=== PATIENT | female | born 1970 | race Caucasian/White ===

== ENCOUNTER 2020-10-09 12:36 | Inpatient (IN) | payer MEDICARE ==
--- NOTE | 2020-10-09 13:22 | ED ---
General Adult HPI - General Chief complaint: Psychiatric Symptoms Stated complaint: mental health Time Seen by Provider: 10/09/20 12:38 Source: patient Mode of arrival: ambulatory Limitations: no limitations - History of Present Illness Initial comments: Dictation was produced using [employer] dictation software. please excuse any grammatical, word or spelling errors. Chief Complaint: 49-year-old female past medical history of psychiatric disease presents from [facility] for mental health evaluation. History of Present Illness: Patient is a 49-year-old female she presents to the emergency department for mental health evaluation. She allegedly has history of bipolar disease and other psychiatric illness. She allegedly has been depressed and contemplating suicide. Patient is a poor historian. She is very slow to answer. She denies any medical complaints. The ROS documented in this emergency department record has been reviewed and confirmed by me. Those systems with pertinent positive or negative responses have been documented in the HPI. All other systems are other negative and/or noncontributory. PHYSICAL EXAM: General Impression: Alert and oriented x3, not in acute distress HEENT: Normocephalic atraumatic, extra-ocular movements intact, pupils equal and reactive to light bilaterally, mucous membranes moist. Cardiovascular: Heart regular rate and rhythm Chest: Able to complete full sentences, no retractions, no tachypnea Abdomen: abdomen soft, non-tender, non-distended, no organomegaly Musculoskeletal: Pulses present and equal in all extremities, no peripheral edema Motor: no focal deficits noted Neurological: CN II-XII grossly intact, no focal motor or sensory deficits noted Skin: Intact with no visualized rashes Psych: Flat affect ED course: 49-year-old female presents from [facility] for mental health evaluation. Vital signs upon arrival are within acceptable limits. Patient has no medical complaints. Physical examination is benign. Patient cleared for EPS evaluation. Labs evaluation obtained per request by psychiatry due to history of lab derangement in the past.. CBC, metabolic panel is unremarkable. His labs are ordered per request by psychiatry. These levels are all normal. Patient medically cleared for EPS evaluation. [facility] - Related Data Home Medications Medication Instructions Recorded Confirmed ARIPiprazole [Abilify] 20 mg PO HS 10/02/13 10/14/13 Venlafaxine HCl ER [Effexor XR] 150 mg PO DAILY 10/02/13 10/14/13 carBAMazepine [carBAMazepine XR] 400 mg PO BID 10/02/13 10/14/13 traZODone HCL [traZODone] 100 mg PO HS 10/02/13 10/14/13 Celecoxib [CeleBREX] 200 mg PO DAILY 10/09/20 10/09/20 DULoxetine HCL [Cymbalta] 60 mg PO DAILY 10/09/20 10/09/20 Escitalopram Oxalate [Lexapro] 10 mg PO DAILY 10/09/20 10/09/20 Fenofibrate,Micronized 134 mg PO DAILY 10/09/20 10/09/20 [Fenofibrate] Isosorbide Mononitrate ER [Imdur] 30 mg PO DAILY 10/09/20 10/09/20 Levothyroxine Sodium [Synthroid] 88 mcg PO DAILY 10/09/20 10/09/20 Paxton-3 Acid Ethyl Esters [Lovaza] 2 gm PO BID 10/09/20 10/09/20 cloZAPine [Clozaril] 100 mg PO BID 10/09/20 10/09/20 metFORMIN HCL [metFORMIN HCL ER] 500 mg PO BID 10/09/20 10/09/20 Previous Rx's Medication Instructions Recorded Aspirin EC [Ecotrin] 81 mg PO DAILY #30 tablet. 10/26/13 Atorvastatin Calcium [Lipitor] 40 mg PO DAILY #30 tab 10/26/13 LORazepam [Ativan] 1 mg PO Q8HR PRN #30 tab 10/26/13 risperiDONE ODT [RisperDAL M-TAB] 0.5 mg PO HS #30 tab 10/26/13 Allergies Allergy/AdvReac Type Severity Reaction Status Date / Time cefuroxime axetil Allergy Unknown Verified 10/09/20 14:23 [From Ceftin] Penicillins Allergy Unknown Verified 10/09/20 14:23 Review of Systems ROS Statement: Those systems with pertinent positive or pertinent negative responses have been documented in the HPI. ROS Other: All systems not noted in ROS Statement are negative. Past Medical History Past Medical History: Hypertension, Thyroid Disorder Additional Past Medical History / Comment(s): hx obtained from . Pt unable to answer History of Any Multi-Drug Resistant Organisms: None Reported Past Surgical History: Appendectomy, Cholecystectomy, Tubal Ligation Additional Past Surgical History / Comment(s): tubal 03/2003 Past Anesthesia/Blood Transfusion Reactions: No Reported Reaction Past Psychological History: Bipolar, Depression Smoking Status: Never smoker Past Alcohol Use History: Heavy Past Drug Use History: None Reported General Exam Limitations: no limitations Course Vital Signs 10/09/20 12:56 Temperature 98.2 F Pulse Rate 92 Respiratory 16 Rate Blood Pressure 146/78 O2 Sat by Pulse 98 Oximetry Medical Decision Making - Lab Data Result diagrams: 10/09/20 15:10 10/09/20 15:10 Lab Results 10/09/20 10/09/20 Range/Units 15:10 15:10 WBC 7.7 (3.8-10.6) k/uL RBC 4.65 (3.80-5.40) m/uL Hgb 13.7 (11.4-16.0) gm/dL Hct 39.9 (34.0-46.0) % MCV 85.9 (80.0-100.0) fL MCH 29.5 (25.0-35.0) pg MCHC 34.3 (31.0-37.0) g/dL RDW 14.1 (11.5-15.5) % Plt Count 263 (150-450) k/uL MPV 7.9 Neutrophils % 75 % Lymphocytes % 17 % Monocytes % 6 % Eosinophils % 0 % Basophils % 0 % Neutrophils # 5.8 (1.3-7.7) k/uL Lymphocytes # 1.3 (1.0-4.8) k/uL Monocytes # 0.5 (0-1.0) k/uL Eosinophils # 0.0 (0-0.7) k/uL Basophils # 0.0 (0-0.2) k/uL Sodium 141 (137-145) mmol/L Potassium 3.9 (3.5-5.1) mmol/L Chloride 108 H (98-107) mmol/L Carbon Dioxide 23 (22-30) mmol/L Anion Gap 10 mmol/L BUN 20 H (7-17) mg/dL Creatinine 1.07 H (0.52-1.04) mg/dL Est GFR (CKD-EPI)AfAm 70 (>60 ml/min/1.73 sqM) Est GFR (CKD-EPI)NonAf 61 (>60 ml/min/1.73 sqM) Glucose 155 H (74-99) mg/dL Calcium 10.1 (8.4-10.2) mg/dL Total Bilirubin 0.6 (0.2-1.3) mg/dL AST 29 (14-36) U/L ALT 32 (4-34) U/L Alkaline Phosphatase 92 (38-126) U/L Total Protein 6.8 (6.3-8.2) g/dL Albumin 4.4 (3.5-5.0) g/dL Disposition Clinical Impression: Suicidal ideation Disposition: ADMITTED IP TO THIS HOSP Condition: Fair Referrals: None,Stated [Primary Care Provider] - 1-2 days
[2020-10-09 15:36] LABS: Basophils % (A) 0 %; Eosinophils % (A) 0 %; HCT 39.9 % (34.0-46.0); HGB 13.7 gm/dL (11.4-16.0); Lymphocytes # (A) 1.3 k/uL (1.0-4.8); Lymphocytes % (A) 17 %; MCH 29.5 pg (25.0-35.0); MCHC 34.3 g/dL (31.0-37.0); MCV 85.9 fL (80.0-100.0); Mean Platelet Volume 7.9; Monocytes # (A) 0.5 k/uL (0-1.0); Monocytes % (A) 6 %; Neutrophils # (A) 5.8 k/uL (1.3-7.7); Neutrophils % (A) 75 %; Platelet Count 263 k/uL (150-450); RBC 4.65 m/uL (3.80-5.40); RDW 14.1 % (11.5-15.5); WBC 7.7 k/uL (3.8-10.6)
[2020-10-09 15:44] LABS: Albumin 4.4 g/dL (3.5-5.0); Calcium 10.1 mg/dL (8.4-10.2); Potassium 3.9 mmol/L (3.5-5.1); Total Bilirubin 0.6 mg/dL (0.2-1.3); Total Protein 6.8 g/dL (6.3-8.2)
[2020-10-09] MEDS ORDERED: MAGNESIUM HYDROXIDE 2,400 MG/10 ML CUP PO PRN (17:02)
[2020-10-09] MEDS ORDERED: MAG HYDROX/AL HYDROX/SIMETH 30 ML CUP PO PRN (17:02)
[2020-10-09] MEDS ORDERED: LORazepam 1 MG TAB PO PRN (17:02)
[2020-10-09] MEDS ORDERED: LORazepam 2 MG/ML INJ IM PRN (17:06)
[2020-10-09] MEDS ORDERED: HALOPERIDOL LACTATE 5 MG/ML 1 ML VIAL IM PRN (17:07)
[2020-10-09] MEDS ORDERED: HALOPERIDOL LACTATE 5 MG/ML 1 ML VIAL IM STA (18:54)
[2020-10-09] MEDS ORDERED: LORazepam 2 MG/ML INJ IM STA (18:55)
[2020-10-09] MEDS ORDERED: diphenhydrAMINE 50 MG/ML 1 ML VIAL IM PRN (19:52)
[2020-10-09] MEDS: traZODone HCL 100 MG TAB PO SCH (20:03)
[2020-10-09] MEDS: cloZAPine 100 MG TAB PO SCH (20:03)
[2020-10-09] MEDS: metFORMIN 500 MG TAB PO SCH (20:03)
[2020-10-09] MEDS: risperiDONE 0.5 MG TAB PO SCH (20:03)
[2020-10-09] MEDS: LORazepam 2 MG/ML INJ IM PRN (20:10)
[2020-10-09] MEDS: HALOPERIDOL LACTATE 5 MG/ML 1 ML VIAL IM PRN (20:10)
[2020-10-09] MEDS: carBAMazepine 400 MG TAB.ER.12H PO SCH (20:25)
[2020-10-09] MEDS ORDERED: NON FORMULARY DRUG (Omega-3 Acid Ethyl Esters [Lovaza] 1 GM Capsule) PO SCH (21:00)
[2020-10-10] MEDS ORDERED: NON FORMULARY DRUG (Omega-3 Acid Ethyl Esters [Lovaza] 1 GM Capsule) PO SCH (00:22)
[2020-10-10] MEDS: LEVOTHYROXINE 88 MCG TAB PO SCH (07:25)
[2020-10-10] MEDS: FENOFIBRATE 160 MG TAB PO SCH (07:54)
[2020-10-10] MEDS: MELOXICAM 7.5 MG TAB PO SCH (07:54)
[2020-10-10] MEDS: ASPIRIN 81 MG PO SCH (07:54)
[2020-10-10] MEDS: ISOSORBIDE MONONITRATE ER 30 MG TAB.ER.24H PO SCH (07:54)
[2020-10-10] MEDS: carBAMazepine 400 MG TAB.ER.12H PO SCH (07:54)
[2020-10-10] MEDS: metFORMIN 500 MG TAB PO SCH ×2 (07:54→21:00)
[2020-10-10] MEDS: cloZAPine 100 MG TAB PO SCH (08:06)
[2020-10-10] MEDS ORDERED: ESCITALOPRAM 10 MG TAB PO SCH (09:00)
[2020-10-10] MEDS ORDERED: VENLAFAXINE HCL ER 150 MG CAP PO SCH (09:00)
[2020-10-10] MEDS ORDERED: DULoxetine HCL 60 MG CAPSULE.DR PO SCH (09:00)
[2020-10-10] MEDS: NON FORMULARY DRUG (Omega-3 Acid Ethyl Esters [Lovaza] 1 GM Capsule) PO SCH ×2 (09:06→21:11)
[2020-10-10 11:15] LABS: Chol/HDL Ratio 4.41; LDL Cholesterol,Calculated 80.8 mg/dL (0.0-131.0); VLDL Calculation 35.2 mg/dL (5.00-40.00)
[2020-10-10 12:09] LABS: Hemoglobin A1C 5.4 % (4.0-6.0)
[2020-10-10] MEDS ORDERED: LORazepam 2 MG/ML INJ IM STA (16:05)
--- NOTE | 2020-10-10 17:29 | HP ---
DATE OF SERVICE: 10/10/2020 HISTORY AND PHYSICAL IDENTIFYING DATA: The patient is a 49-year-old female. She lives with her . She presented to the hospital in [place] for evaluation. CHIEF COMPLAINT: The patient was not able to communicate. According to her , she was depressed and contemplating suicide. HISTORY OF PRESENTING ILLNESS: The patient was not able to provide any information and was essentially mute. Dr. Carl provided most of the information backed up by some information from the medical record. The patient has had long-term psychiatric issues. It is noted she had an admission here in September 2013. At that time she was diagnosed with bipolar disorder and had worsening of bipolar symptoms with disorganized thinking, fluctuating mood, sleep problems, pacing and restless behavior and disorganized thoughts. On discharge she was on Abilify 30 mg a day along with Effexor XR, Tegretol XR and Desyrel. Discharge diagnosis of bipolar disorder, mixed episode with psychosis. According to Dr. Carl, the patient had a progressive decline in her function leading up to her 2013 hospitalization. There was concern about possible schizophrenia. Following her 2013 hospitalization she did quite well and has not had any further hospitalizations until the present. Over the past 6 years the patient had been doing quite well. She seemed to be well stabilized on Clozaril. There was some question about dosing over the last 2 months. The patient had been complaining of tiredness, so the Clozaril dose had been reduced some. Her current Clozaril dose is 100 mg twice a day. Her had been working second shift and there was concern that the patient was becoming increasingly distressed and fearful and most likely not taking her evening dose of Clozaril. She is followed by ACT, though she had not been responding to any of their efforts at contact. The ACT team was suspecting that she likely was not taking Clozaril consistently. She had a history of a fair amount of anxiety and had been on Klonopin for a period of time and was weaned off about [address] Carl noted that in the last few months she has had a gradual decline. Dr. Carl is noting that she seems to be at about the same point where she was 6 years ago that led to her coming into the hospital. The patient lives with her . It is not clear how consistently reliable he is as a support, given his situation with work and other factors. Other medications that the patient is on include Cymbalta 60 mg a day and Lexapro 10 mg a day as other psychoactive medications. She is admitted for further evaluation. SUBSTANCE USE HISTORY: No information available. PAST MEDICAL HISTORY: Hypertension, hyperlipidemia, hypothyroidism, on replacement. FAMILY AND SOCIAL HISTORY: The only information available is as above. MENTAL STATUS EXAMINATION: The patient for the most part was mute during the interview. She stood throughout the interview and rocked from one foot to another. She would respond to questions with just one- or two-word responses that were very soft and almost unintelligible. To one question her response was "half thoughts." To another, "Change ears." To another, "I want to make it hurt." She did not say much more than that. She was noted to be carrying a basket with her personal items though did not make any indication as to why she was carrying the basket. She had a flat affect. She had a distressed look on her face. She seemed to indicate response to internal stimuli. She was extremely slowed in her movements. There was latency in her response. She was not able to respond to any cognitive questions. PHYSICAL EXAMINATION: As per medical consultation. ASSESSMENT: This is a 49-year-old female who is diagnosed with bipolar affective disorder, depressed phase. She has signs of catatonia. She has apparently done the best on Clozaril, though has not been taking her medication consistently and has been declining at least over the last month or more. Psychosocial factors are uncertain. DIAGNOSES: 1. Bipolar affective disorder, depressed mood with psychotic features. 2. Catatonia. 3. Hypertension. 4. Hyperlipidemia. 5. Hypothyroidism. RECOMMENDATIONS: The patient will be admitted for comprehensive medical, psychiatric and psychosocial evaluation. We will engage the patient in individual and group therapeutic activities. I will restart the patient on Clozaril, though will have to do a modified titration, given that she likely has been taking minimal amounts of clozapine at this time. I will initiate an Ativan trial to assess for catatonia. She will receive 2 mg IM and then have a follow-up evaluation in one hour. We will focus on stabilization and discharge planning. We will coordinate with Dr. Carl and [facility] for further treatment and discharge planning. MMBEATAL / FERNANDON: [id number] / [facility]OSPITALShaun
[2020-10-10 18:53] LABS: Glucose,Whole Blood 173 mg/dL (75-99)
[2020-10-10] MEDS: cloZAPine 25 MG TAB PO SCH (21:00)
[2020-10-10] MEDS: risperiDONE 0.5 MG TAB PO SCH (21:01)
[2020-10-10] MEDS: traZODone HCL 100 MG TAB PO SCH (21:01)
[2020-10-10] MEDS: LORazepam 2 MG/ML INJ IM PRN (23:44)
--- NOTE | 2020-10-11 00:43 | P.CONS ---
History of Present Illness - Reason for Consult Consult date: 10/11/20 - History of Present Illness The patient was seen with the mental health unit RN. I was never alone with the patient The patient is a 49-year-old female with a PMH of bipolar disorder, type II DM, hypertension, hyperlipidemia, and hypothyroidism who presented to the emergency room from [facility] for mental health evaluation. The patient was reportedly expressing suicidal ideation and was thereby admitted to the mental health unit where she was seen and evaluated. The patient was slow to respond and was a poor historian. She denied any active complaints. the patient's laboratory evaluation in the emergency room was reviewed and was remarkable for glucose of 155, BUN 20, creatinine 1.07. Review of systems: Pertinent positives and negatives as discussed in HPI, a complete review of systems was performed and all other systems are negative. Physical examination: General: non toxic, no distress, appears at stated age, Morbidly obese Derm: no unusual rashes/lesions no unusual ecchymoses, warm, dry Head: atraumatic, normocephalic, symmetric Eyes: EOMI, no lid lag, anicteric sclera, pupils equal round reactive to light ENT: Nose and ears atraumatic, no thrush, no pharyngeal erythema Neck: No thyromegaly, no cervical lymphadenopathy, trachea midline, supple Mouth: no lip lesion, mucus membranes moist Cardiovascular: S1S2 reg, no murmur, positive posterior tibial pulse bilateral, no edema, capillary refill less than 2 seconds Lungs: CTA bilateral, no rhonchi, no rales , no accessory muscle use Abdominal: soft, nontender to palpation, no guarding, no appreciable organomegaly, normal bowel sounds Ext: no gross muscle atrophy, Neuro: CN II-XI grossly intact, moving all extremities, no focal deficits noted, Psych: Awake, slow to respond, oriented to person and place Assessment/plan Type II DM -A1C 5.4 -Continue home metformin dose Hypertension, hyperlipidemia -Continue with home meds Depression -As per psychiatry Thank you for allowing us to participate in the care of this patient. We will follow peripherally. Do not hesitate to contact us with questions. Someone can be reached from the [facility] hospitalist group at all hours of the day at [phone]. Past Medical History Past Medical History: Hypertension, Thyroid Disorder Additional Past Medical History / Comment(s): hx obtained from . Pt unable to answer History of Any Multi-Drug Resistant Organisms: None Reported Past Surgical History: Appendectomy, Cholecystectomy, Tubal Ligation Additional Past Surgical History / Comment(s): tubal 03/2003 Past Anesthesia/Blood Transfusion Reactions: No Reported Reaction Past Psychological History: Bipolar, Depression Smoking Status: Never smoker Past Alcohol Use History: Heavy Past Drug Use History: None Reported Medications and Allergies Home Medications Medication Instructions Recorded Confirmed Type Atorvastatin Calcium [Lipitor] 40 mg PO DAILY #30 tab 10/26/13 10/10/20 Rx Celecoxib [CeleBREX] 200 mg PO DAILY 10/09/20 10/10/20 History DULoxetine HCL [Cymbalta] 60 mg PO DAILY 10/09/20 10/09/20 History Escitalopram Oxalate [Lexapro] 10 mg PO DAILY 10/09/20 10/10/20 History Fenofibrate,Micronized 134 mg PO DAILY 10/09/20 10/10/20 History [Fenofibrate] Isosorbide Mononitrate ER [Imdur] 30 mg PO DAILY 10/09/20 10/10/20 History Levothyroxine Sodium [Synthroid] 88 mcg PO DAILY 10/09/20 10/10/20 History Maren[place]-3 Acid Ethyl Esters [Lovaza] 2 gm PO BID 10/09/20 10/10/20 History cloZAPine [Clozaril] 100 mg PO BID 10/09/20 10/09/20 History metFORMIN HCL [metFORMIN HCL ER] 1,000 mg PO W/SUPPER 10/09/20 10/10/20 History Cholecalciferol [Vitamin D3 (25 50 mcg PO DAILY 10/10/20 10/10/20 History Mcg = 1000 Iu)] Marenisco-3 Fatty Acids [Marenisco-3] 1,000 mg PO DAILY 10/10/20 10/10/20 History Allergies Allergy/AdvReac Type Severity Reaction Status Date / Time cefuroxime axetil Allergy Rash/Hives Verified 10/10/20 09:20 [From Ceftin] Penicillins Allergy Rash/Hives Verified 10/10/20 09:20 thioridazine AdvReac muscle Verified 10/10/20 09:20 stiffness Physical Exam Vitals: Vital Signs Temp Pulse Resp BP Pulse Ox 10/10/20 21:00 97.9 F 106 H 18 132/85 10/10/20 18:45 114 H 10/10/20 18:41 98.6 F 120 H 16 120/72 94 L 10/10/20 16:35 98.0 F 10/10/20 09:51 97.2 F L 10/10/20 07:54 105 H 133/100 Results CBC & Chem 7: 10/09/20 15:10 10/09/20 15:10 Labs: Abnormal Lab Results - Last 24 Hours (Table) 10/10/20 10/10/20 Range/Units 07:09 18:49 POC Glucose (mg/dL) 173 H (75-99) mg/dL Triglycerides 176.0 H (0.0-149.0) mg/dL HDL Cholesterol 34.0 L (40.0-60.0) mg/dL
[2020-10-11] MEDS: HALOPERIDOL LACTATE 5 MG/ML 1 ML VIAL IM PRN (01:40)
[2020-10-11] MEDS: LEVOTHYROXINE 88 MCG TAB PO SCH (06:29)
[2020-10-11] MEDS ORDERED: LORazepam 2 MG/ML INJ IM STA ×2 (07:49→08:42)
[2020-10-11 08:39] LABS: HCT 39.6 % (34.0-46.0); HGB 13.8 gm/dL (11.4-16.0); MCH 29.8 pg (25.0-35.0); MCHC 34.9 g/dL (31.0-37.0); MCV 85.3 fL (80.0-100.0); Platelet Count 239 k/uL (150-450); RBC 4.64 m/uL (3.80-5.40); WBC 9.1 k/uL (3.8-10.6)
[2020-10-11 08:56] LABS: Calcium 10.1 mg/dL (8.4-10.2); Potassium 3.8 mmol/L (3.5-5.1)
[2020-10-11] MEDS ORDERED: VENLAFAXINE HCL ER 150 MG CAP PO SCH (09:00)
[2020-10-11 10:01] LABS: Amorphous Sediment,Urine Rare /hpf; Appearance,Urine Cloudy (Clear); Bacteria,Urine Many /hpf; Bilirubin,Urine Negative (Negative); Blood,Urine Negative (Negative); Color,Urine Yellow; Glucose,Urine (UA) Negative (Negative); Ketones,Urine Negative (Negative); Leukocyte Esterase,Urine Negative (Negative); Mucus,Urine Few /hpf; Nitrite,Urine Negative (Negative); PH, Urine 5.5 (5.0-8.0); Protein,Urine Negative (Negative); Specific Gravity,Urine 1.012 (1.001-1.035); Squamous Epithelial Cell,Urine 4 /hpf (0-4); Urobilinogen,Urine <2.0 mg/dL (<2.0); WBC,Urine 1 /hpf (0-5)
[2020-10-11] MEDS: FENOFIBRATE 160 MG TAB PO SCH (10:02)
[2020-10-11] MEDS: NON FORMULARY DRUG (Omega-3 Acid Ethyl Esters [Lovaza] 1 GM Capsule) PO SCH ×2 (10:04→21:44)
[2020-10-11] MEDS: metFORMIN 500 MG TAB PO SCH ×2 (10:04→21:09)
[2020-10-11] MEDS: DULoxetine HCL 30 MG CAPSULE.DR PO SCH (10:04)
[2020-10-11] MEDS: ASPIRIN 81 MG PO SCH (10:05)
[2020-10-11] MEDS: cloZAPine 25 MG TAB PO SCH (10:05)
[2020-10-11] MEDS: ISOSORBIDE MONONITRATE ER 30 MG TAB.ER.24H PO SCH (10:05)
[2020-10-11] MEDS: MELOXICAM 7.5 MG TAB PO SCH (10:05)
[2020-10-11] MEDS ORDERED: VENLAFAXINE HCL ER 75 MG CAP PO SCH (10:30)
--- NOTE | 2020-10-11 13:51 | PN ---
PROGRESS NOTE DATE OF SERVICE: 10/11/2020. CHIEF COMPLAINT: The patient was not able to communicate. According to her , she was depressed and contemplating suicide. INTERVAL HISTORY: Patient continues to struggle. She had a quiet day yesterday. Mostly she would walk around the unit to a limited extent. She will solution engineer one part of the hoff or another and just seem to stare off in a distance. Sometimes she will pay a little attention to things going on around her. She verbalizes very little. She might respond with 1 or 2 word answers. Sometimes it is hard to tell what she is trying to say. She does not making any effort to interact with anyone. She will respond mostly with eye contact, but not much else when staff approach her. Patient did not sleep last night. Nursing noted that according to history and previous days in the hospital she has not slept "for days". Today she has been up. Staff noted this morning that she seemed to be having significant problems just with standing. She was settled in a wheelchair. She showed very little extraneous movements and held herself in a rigid posture. She was given Ativan 2 mg IM as a test dose for catatonia. About an hour after that, she still was staying in a wheelchair. She did make some efforts to stand, though was wobbly and remained sitting. When I talked to her she actually responded more than she has since admission. She would answer questions with a few brief phrases. Her thoughts were appropriate, though fairly limited in. She received a second dose of 2 mg of Ativan. Following that, it did seem she was showing at least some response to the Ativan challenge. MENTAL STATUS: Patient did give fair eye contact. After she received the Ativan dose, she was slow in her movements. She responded to a few questions with brief responses that were general, but appropriate. Her affect otherwise was flat. Her mood depressed. She was apparently distressed. She appears to respond to internal stimuli. She indicated no thoughts of harm. She is or oriented only to self. ASSESSMENT: We will continue the current diagnosis and treatment plan. We continue to monitor for possible catatonia and response to Ativan challenge. I will increase the patient's Clozaril. She will get 150 mg tonight and then tomorrow, start 50 mg in the morning and 150 mg at night. She received 50 mg this morning. I would look to continue to titrate up as appropriate. I will discontinue Risperdal, trazodone and Effexor which had been continued from outpatient prescriptions. As noted previously, Dr. Carl indicated that Clozaril has been the primary medication to benefit the patient. I would make an effort to simplify her treatment until we get a clear picture of her response to clozapine as well as whether or not she also is having the complications from catatonia. We will focus on stabilization and discharge planning. MMBEATAL / IJN: [id number] /
[2020-10-11 17:07] LABS: Urine Alcohol Negative (Negative); Urine Barbiturate Negative (Negative); Urine Cocaine Negative (Negative); Urine Methadone Negative (Negative); Urine Opiates Negative (Negative); Urine Phencyclidine Negative (Negative)
--- NOTE | 2020-10-11 17:26 | P.PN ---
Progress Note - Text Progress Note Date: 10/11/20 Received a page to assess patient for concerns of UTI as patient had reportedly urinated on floor and it appeared to be dark in color. Mental health staff requesting labs and urinalysis. CBC completed unremarkable. BMP revealing slightly elevated renal function with BUN 25, creatinine 1.38, and GFR 44. This is believed to be secondary to dehydration. Mental health staff instructed to encourage patient to drink water. Urinalysis was cloudy clarity negative for blood, ketones, proteins, or signs of infection. No further orders to be given at this time. Again encouraged staff to increase patient's fluid intake, otherwise patient was stable at this time.
[2020-10-11] MEDS: cloZAPine 100 MG TAB PO SCH (21:09)
[2020-10-12] MEDS: LEVOTHYROXINE 88 MCG TAB PO SCH (09:02)
[2020-10-12] MEDS: ISOSORBIDE MONONITRATE ER 30 MG TAB.ER.24H PO SCH (09:02)
[2020-10-12] MEDS: FENOFIBRATE 160 MG TAB PO SCH (09:02)
[2020-10-12] MEDS: DULoxetine HCL 30 MG CAPSULE.DR PO SCH (09:03)
[2020-10-12] MEDS: MELOXICAM 7.5 MG TAB PO SCH (09:03)
[2020-10-12] MEDS: ASPIRIN 81 MG PO SCH (09:03)
[2020-10-12] MEDS: cloZAPine 25 MG TAB PO SCH (09:03)
[2020-10-12] MEDS: metFORMIN 500 MG TAB PO SCH ×2 (09:03→21:27)
[2020-10-12] MEDS: NON FORMULARY DRUG (Omega-3 Acid Ethyl Esters [Lovaza] 1 GM Capsule) PO SCH ×2 (09:25→21:27)
--- NOTE | 2020-10-12 11:23 | P.PN ---
Progress Note - Text Progress Note Date: 10/12/20 Interval History: Patient was seen wandering the hallways and was directable and agreeable to speak with sheet writer in her room. Patient is currently ambulating with a wheelchair. The patient remains minimally responsive to questioning, often answering in 1-2 word responses that are low in volume and often mumbled. The patient was administered an Ativan challenge yesterday for management of catatonia, but otherwise has not appeared to display catatonic symptoms today aside from some mutism. She does not answer questions properly at this time. The patient has been noted to sleep for most of yesterday after receiving the Ativan challenge. Prior to receiving that challenge, the patient was noted not to have slept for days. She is currently adherent with her prescribed Clozaril. Mental Status Exam: General Appearance: Patient appears to be stated age is alert, directable, and cooperative. Patient is an obese body habitus. Slightly disheveled. Behavior: Patient is calmly seated without any agitated behavior. Speech: Patient's speech is nonspontaneous, low in volume, minimal, and often dysarthric and difficult to understand. Mood/Affect: Unable to appropriately assess. Suicidality/Homicidality: Unable to appropriately assess. Perceptions: Unable to appropriately assess. Though content/process: Unable to appropriately assess. Memory and concentration: Unable to appropriately assess. Judgment and insight: Poor Assessment Bipolar disorder, type I, depressed episode Plan: -Patient continues to meet criteria for inpatient psychiatric admission for symptom stabilization and safety. The patient has been petitioned and certified. -Medications: Continue Clozaril 50 mg by mouth every morning, 150 mg by mouth daily at bedtime for psychosis/mood stabilization Continue Cymbalta 30 mg by mouth daily for depression -When necessary Ativan and Haldol for agitation/aggression. -SW on board for discharge planning. Encouraged the patient to participate in milieu.
[2020-10-12] MEDS: cloZAPine 100 MG TAB PO SCH (21:27)
[2020-10-13] MEDS: LEVOTHYROXINE 88 MCG TAB PO SCH (06:17)
[2020-10-13] MEDS: ISOSORBIDE MONONITRATE ER 30 MG TAB.ER.24H PO SCH (08:25)
[2020-10-13] MEDS: FENOFIBRATE 160 MG TAB PO SCH (08:25)
[2020-10-13] MEDS: metFORMIN 500 MG TAB PO SCH ×2 (08:25→20:58)
[2020-10-13] MEDS: MELOXICAM 7.5 MG TAB PO SCH (08:25)
[2020-10-13] MEDS: DULoxetine HCL 30 MG CAPSULE.DR PO SCH ×2 (08:25→20:58)
[2020-10-13] MEDS: cloZAPine 25 MG TAB PO SCH (08:25)
[2020-10-13] MEDS: ASPIRIN 81 MG PO SCH (08:25)
[2020-10-13] MEDS: NON FORMULARY DRUG (Omega-3 Acid Ethyl Esters [Lovaza] 1 GM Capsule) PO SCH ×2 (08:33→20:56)
--- NOTE | 2020-10-13 10:07 | P.PN ---
Progress Note - Text Progress Note Date: 10/13/20 Interval History: Patient was seen wandering the hallways and was directable and agreeable to speak with television writer in her room. Patient is currently ambulating with a wheelchair. The patient remains minimally responsive to questioning, often answering in 1-2 word responses that are low in volume and often mumbled. The patient is much more responsive today and answers in 1-2 word responses that are appropriate to the question. The patient does admit to suicidal ideation but she is unable to expand further. She denies any homicidal ideation. She does not report any auditory or visual hallucinations at this time. She denies any issues with sleep or appetite. She has been in adherent with her medications. Mental Status Exam: General Appearance: Patient appears to be stated age is alert, directable, and cooperative. Patient is an obese body habitus. Fair hygiene and grooming. Behavior: Patient is calmly seated without any agitated behavior. Eye contact is appropriate. Patient appears tearful at times. Psychomotor activity is slow. Speech: Patient's speech is nonspontaneous, low in volume, minimal, and often dysarthric and difficult to understand. Mood/Affect: Patient reports her mood is "okay." Affect is blunted. Suicidality/Homicidality: Patient endorses suicidal ideation but no homicidal ideation, intention, and/or plan. Perceptions: The patient denies any auditory or visual hallucinations. Though content/process: Unable to assess thought content beyond a superficial level. Thought process appears to be some thought blocking. Memory and concentration: Unable to appropriately assess. Judgment and insight: Poor Assessment Bipolar disorder, type I, depressed episode Plan: -Patient continues to meet criteria for inpatient psychiatric admission for symptom stabilization and safety. The patient has been petitioned and certified. The patient scheduled for deferral tomorrow. -Medications: Continue Clozaril 50 mg by mouth every morning, 150 mg by mouth daily at bedtime for psychosis/mood stabilization Increase Cymbalta to 30 mg by mouth twice a day for depression -When necessary Ativan and Haldol for agitation/aggression. -SW on board for discharge planning. Encouraged the patient to participate in milieu.
[2020-10-13] MEDS: cloZAPine 100 MG TAB PO SCH (20:58)
[2020-10-14] MEDS: LORazepam 2 MG/ML INJ IM PRN (01:42)
[2020-10-14] MEDS: FENOFIBRATE 160 MG TAB PO SCH (08:09)
[2020-10-14] MEDS: ASPIRIN 81 MG PO SCH (08:09)
[2020-10-14] MEDS: metFORMIN 500 MG TAB PO SCH ×2 (08:09→20:20)
[2020-10-14] MEDS: DULoxetine HCL 30 MG CAPSULE.DR PO SCH ×2 (08:09→20:20)
[2020-10-14] MEDS: cloZAPine 25 MG TAB PO SCH (08:09)
[2020-10-14] MEDS: ISOSORBIDE MONONITRATE ER 30 MG TAB.ER.24H PO SCH (08:09)
[2020-10-14] MEDS: LEVOTHYROXINE 88 MCG TAB PO SCH (08:09)
[2020-10-14] MEDS: MELOXICAM 7.5 MG TAB PO SCH (08:09)
[2020-10-14] MEDS: NON FORMULARY DRUG (Omega-3 Acid Ethyl Esters [Lovaza] 1 GM Capsule) PO SCH ×2 (08:11→20:31)
--- NOTE | 2020-10-14 10:25 | P.PN ---
Progress Note - Text Progress Note Date: 10/14/20 Interval History: Patient was seen resting in bed and was directable and agreeable to speak with caption writer in her room. The patient is more responsive today. She provides more substantial answers today. Patient reports she feels "I'm doing okay." She reports that she has been experiencing suicidal ideation but states that the last time she felt this way was approximately "3 weeks ago." She otherwise does not report and homicidal ideation, intention, and/or plan. She does admit to auditory hallucinations but is unable to share the content or nature of these hallucinations. She does report no visual hallucinations. She overtly denies any paranoia but does admit that she does not feel safe on the unit. She is unable to expand at this time. She has been adherent with her medications and reports no significant side effects at this time. As per staff note, the patient re quired ativan at bedtime for sleep. Mental Status Exam: General Appearance: Patient appears to be stated age is alert, directable, and cooperative. Patient is an obese body habitus. Fair hygiene and grooming. Behavior: Patient is calmly seated without any agitated behavior. Eye contact is appropriate. Psychomotor activity is slow. Speech: Patient's speech is nonspontaneous, low in volume, minimal but more responsive today. Monotone. Less dysarthric. Mood/Affect: Patient reports her mood is "okay." Affect is blunted. Suicidality/Homicidality: Patient endorses no current suicidal or homicidal ideation, intention, and/or plan. Perceptions: Patient admits to auditory hallucinations. Though content/process: Unable to assess thought content beyond a superficial level. Thought process appears to be some thought blocking. Memory and concentration: Unable to appropriately assess. Judgment and insight: Poor Assessment Bipolar disorder, type I, depressed episode Plan: -Patient continues to meet criteria for inpatient psychiatric admission for symptom stabilization and safety. The patient has been petitioned and certified. The patient scheduled for deferral tomorrow. -Medications: We will change clozaril to 25 mg in the morning and 175 mg at bedtime to address daytime sedation and encourage nighttime sleep. Continue Cymbalta to 30 mg by mouth twice a day for depression Will draw BMP this weekend to monitor kidney function. -When necessary Ativan and Haldol for agitation/aggression. -SW on board for discharge planning. Encouraged the patient to participate in milieu.
[2020-10-14] MEDS ORDERED: cloZAPine 25 MG TAB PO SCH (21:00)
[2020-10-14] MEDS ORDERED: cloZAPine 100 MG TAB PO SCH (21:00)
[2020-10-15] MEDS: LEVOTHYROXINE 88 MCG TAB PO SCH (06:53)
[2020-10-15] MEDS: DULoxetine HCL 30 MG CAPSULE.DR PO SCH (07:35)
[2020-10-15] MEDS: metFORMIN 500 MG TAB PO SCH ×2 (07:35→20:05)
[2020-10-15] MEDS: cloZAPine 25 MG TAB PO SCH (07:35)
[2020-10-15] MEDS: FENOFIBRATE 160 MG TAB PO SCH (07:35)
[2020-10-15] MEDS: ISOSORBIDE MONONITRATE ER 30 MG TAB.ER.24H PO SCH (07:35)
[2020-10-15] MEDS: ASPIRIN 81 MG PO SCH (07:35)
[2020-10-15] MEDS: MELOXICAM 7.5 MG TAB PO SCH (07:36)
[2020-10-15] MEDS: NON FORMULARY DRUG (Omega-3 Acid Ethyl Esters [Lovaza] 1 GM Capsule) PO SCH ×2 (07:41→21:47)
--- NOTE | 2020-10-15 12:58 | P.PN ---
Progress Note - Text Progress Note Date: 10/15/20 Subjective: Patient was seen today as a cross coverage for Dr. Lima. The patient was evaluated, chart reviewed, case discussed with the treatment team. Patient reports fair sleep last night, and appetite was reported as " good". Patient has not been going to groups and other unit activities. The patient is compliant with her medications and denies any adverse reactions. patient is on one-to-one observation for safety. Patient presented was very restricted the flat affect, delayed response and answering question with very few words. She reports is still feeling depressed, hopeless and admits for having suicidal ideation. Patient did not share any plan or intent to hurt herself but didn't answer questions about if she has a plan. She admits for having auditory hallucinations but was not able to share contents. Objective: Vitals has been reviewed. Mental status examination; Appearance: The patient appears older than his stated age, fairly groomed, partially disheveled, average body built, no specific features. Gait/posture:patient was on wheelchair for risk of fall, Normal arm swinging: No abnormal movements. Attitude and behavior: Pt is not engaged, not fully cooperative, very poor eye contact. Motor activity: Decreased psychomotor activity Speech: few, delayed Mood:depressed Affect:restricted to flat Thought form: very slow thought process Thought content: Non-delusional, reports suicidal thoughts, not reports of plan or intent. Perception: Pt reports auditory but not report of visual hallucinations Attention: No impairment. Orientation: Patient is not fully oriented to time place person and situation. Insight: Patient has limited insight about her psychiatric disorder. Judgment: Patient has limited judgment about her psychiatric treatment. Assessment: bipolar disorder, type I, depressed episode. Plan: Continue inpatient level of care due to need for further monitoring and stabilization Precautions: Continue 15 minutes check for safety. Consider medical consultation if any acute medical issues arise. Provide the patient individual, group therapy, substance use disorder counseling to give better insight and learn coping skills. Medications: continue Clozaril and increase the dose to 25 mg a.m. and 200 mg at bedtime for mood stabilization and psychotic symptom Continue Cymbalta and increase the dose to 30 mg a.m. and 60 mg at bedtime for depression. Continue as needed medications for psychiatric emergencies including psychosis, agitation and anxiety. Continue non-psychiatric medications for medical conditions as recommended by the medical team. Discharge patient to OUTPATIENT services upon a stabilization
[2020-10-15] MEDS: DULoxetine HCL 60 MG CAPSULE.DR PO SCH (20:05)
[2020-10-15] MEDS: cloZAPine 100 MG TAB PO SCH (20:05)
[2020-10-16] MEDS: LORazepam 2 MG/ML INJ IM PRN (01:56)
[2020-10-16] MEDS: LEVOTHYROXINE 88 MCG TAB PO SCH (09:43)
[2020-10-16] MEDS: metFORMIN 500 MG TAB PO SCH ×2 (09:45→21:52)
[2020-10-16] MEDS: FENOFIBRATE 160 MG TAB PO SCH (09:45)
[2020-10-16] MEDS: ASPIRIN 81 MG PO SCH (09:45)
[2020-10-16] MEDS: DULoxetine HCL 30 MG CAPSULE.DR PO SCH (09:45)
[2020-10-16] MEDS: ISOSORBIDE MONONITRATE ER 30 MG TAB.ER.24H PO SCH (09:45)
[2020-10-16] MEDS: cloZAPine 25 MG TAB PO SCH (09:45)
[2020-10-16] MEDS: NON FORMULARY DRUG (Omega-3 Acid Ethyl Esters [Lovaza] 1 GM Capsule) PO SCH ×2 (09:46→21:56)
[2020-10-16] MEDS: MELOXICAM 7.5 MG TAB PO SCH (09:46)
--- NOTE | 2020-10-16 13:14 | P.PN ---
Progress Note - Text Progress Note Date: 10/16/20 Subjective: Patient was seen today as a cross coverage for Dr. Lima. The patient was evaluated, chart reviewed, case discussed with the treatment team. patient presented less confused and better expressing herself today. She reports still having trouble sleeping and her appetite is a slightly better. Patient was answering question with less delay and more responsive today. Reports auditory hallucinations which sometimes telling her to hurt herself. She has some suicidal ideation but denies any plan or intent to hurt herself or others.Patient has not been going to groups, but she is taking her medications and no side effects reported. Patient is able to walk without need for support and she would try to attend groups later today. Objective: Vitals has been reviewed. Mental status examination; Appearance: The patient appears older than his stated age, fairly groomed, partially disheveled, average body built, no specific features. Gait/posture:patient was able to walk without support, Normal arm swinging: No abnormal movements. Attitude and behavior: Pt is better engaged, not fully cooperative, very poor eye contact. Motor activity: Decreased psychomotor activity Speech: more verbal, still delayed Mood:depressed Affect:restricted to flat Thought form: very slow thought process Thought content: Non-delusional, reports suicidal thoughts, not reports of plan or intent. Perception: Pt reports auditory but not visual hallucinations Attention: impaired Orientation: Patient is not fully oriented to time place person and situation. Insight: Patient has limited insight about her psychiatric disorder. Judgment: Patient has limited judgment about her psychiatric treatment. Assessment: bipolar disorder, type I, depressed episode. Plan: Continue inpatient level of care due to need for further monitoring and stabilization Precautions: discontinue one to one observation, and start 15 minutes check for safety. Consider medical consultation if any acute medical issues arise. Provide the patient individual, group therapy, substance use disorder counseling to give better insight and learn coping skills. Medications: continue Clozaril 200 mg at bedtime for mood stabilization and psychotic symptom Continue Cymbalta 30 mg a.m. and 60 mg at bedtime for depression. Continue as needed medications for psychiatric emergencies including psychosis, agitation and anxiety. Continue non-psychiatric medications for medical conditions as recommended by the medical team. Discharge patient to OUTPATIENT services upon a stabilization
[2020-10-16] MEDS: DULoxetine HCL 60 MG CAPSULE.DR PO SCH (21:52)
[2020-10-16] MEDS: cloZAPine 100 MG TAB PO SCH (21:53)
[2020-10-16] MEDS: LORazepam 1 MG TAB PO PRN (22:23)
[2020-10-17] MEDS: LEVOTHYROXINE 88 MCG TAB PO SCH (06:30)
[2020-10-17] MEDS: FENOFIBRATE 160 MG TAB PO SCH (09:52)
[2020-10-17] MEDS: ISOSORBIDE MONONITRATE ER 30 MG TAB.ER.24H PO SCH (09:52)
[2020-10-17] MEDS: ASPIRIN 81 MG PO SCH (09:52)
[2020-10-17] MEDS: cloZAPine 25 MG TAB PO SCH (09:52)
[2020-10-17] MEDS: metFORMIN 500 MG TAB PO SCH ×2 (09:52→20:15)
[2020-10-17] MEDS: MELOXICAM 7.5 MG TAB PO SCH (09:52)
[2020-10-17] MEDS: NON FORMULARY DRUG (Omega-3 Acid Ethyl Esters [Lovaza] 1 GM Capsule) PO SCH ×2 (09:53→19:36)
[2020-10-17] MEDS: DULoxetine HCL 30 MG CAPSULE.DR PO SCH (09:53)
--- NOTE | 2020-10-17 10:51 | P.PN ---
Progress Note - Text Progress Note Date: 10/17/20 Interval History: Patient was seen resting in bed and was directable and agreeable to speak with service writer in her room. The patient reports that she is feeling "okay." She continues to endorse suicidal ideation but denies any intention or plan. She denies any homicidal ideation, intention, and/or plan. She is much more responsive today to questioning. She does admit to auditory hallucinations but is unable to elaborate on the content. She does express that she has been experiencing occasional visual hallucinations. She states that she has seen a bird fly around her room.She has been in adherent with her medications. The patient does display significant blocking and when asking about side effects of the medication, she is unable to provide any clear or coherent responses. When asked about her last bowel movement, the patient is unable to recall. She reports it may have been 3-4 days ago. Despite this, the patient denies any abdominal pain or other issues. She denies any issues with sleep or appetite. Vital Signs Temp 97.9 F 10/17/20 09:27 Pulse 101 H 10/17/20 07:23 Resp 16 10/17/20 07:23 BP 123/67 10/17/20 07:23 Pulse Ox 95 10/13/20 05:25 Intake & Output 10/16/20 10/17/20 10/17/20 18:59 06:59 18:59 Weight 115 kg Mental Status Exam: General Appearance: Patient appears to be stated age is alert, directable, and cooperative. Patient is an obese body habitus. Fair hygiene and grooming. Dressed in a hospital gown. Behavior: Patient is calmly lying in bed without any agitated behavior. Eye contact is appropriate. Psychomotor activity is slow. Speech: Patient's speech is nonspontaneous, low in volume, and more responsive today. Normal fluency but monotone. Mood/Affect: Patient reports her mood is "okay." Affect is blunted. Suicidality/Homicidality: Patient endorses no current suicidal or homicidal ideation, intention, and/or plan. Perceptions: Patient admits to auditory and visual hallucinations. Though content/process: Unable to assess thought content beyond a superficial level. Thought process appears to be some thought blocking. Memory and concentration: Unable to appropriately assess. Judgment and insight: Poor Assessment Bipolar disorder, type I, depressed episode Plan: -Patient continues to meet criteria for inpatient psychiatric admission for symptom stabilization and safety. The patient has been petitioned and certified. The patient scheduled for deferral tomorrow. -Medications: Continue Clozaril 25 mg in the morning and 200 mg at bedtime for psychosis Continue Cymbalta to 30 mg by mouth in the morning and 60 mg at bedtime for depression. CMP ordered. Will monitor kidney function due to cymbalta. -When necessary Ativan and Haldol for agitation/aggression. -SW on board for discharge planning. Encouraged the patient to participate in milieu.
[2020-10-17] MEDS: DULoxetine HCL 60 MG CAPSULE.DR PO SCH (20:15)
[2020-10-17] MEDS: cloZAPine 100 MG TAB PO SCH (20:15)
[2020-10-18] MEDS: LORazepam 1 MG TAB PO PRN ×2 (02:27→16:12)
[2020-10-18] MEDS: LEVOTHYROXINE 88 MCG TAB PO SCH (06:41)
[2020-10-18 08:20] LABS: Albumin 4.4 g/dL (3.5-5.0); Total Bilirubin 0.8 mg/dL (0.2-1.3); Total Protein 7.1 g/dL (6.3-8.2)
[2020-10-18] MEDS: MELOXICAM 7.5 MG TAB PO SCH (08:32)
[2020-10-18] MEDS: ASPIRIN 81 MG PO SCH (08:32)
[2020-10-18] MEDS: metFORMIN 500 MG TAB PO SCH ×2 (08:33→20:31)
[2020-10-18] MEDS: FENOFIBRATE 160 MG TAB PO SCH (08:33)
[2020-10-18] MEDS: DULoxetine HCL 30 MG CAPSULE.DR PO SCH (08:33)
[2020-10-18] MEDS: ISOSORBIDE MONONITRATE ER 30 MG TAB.ER.24H PO SCH (08:34)
[2020-10-18] MEDS: cloZAPine 25 MG TAB PO SCH (08:34)
[2020-10-18] MEDS: NON FORMULARY DRUG (Omega-3 Acid Ethyl Esters [Lovaza] 1 GM Capsule) PO SCH ×2 (08:39→20:35)
--- NOTE | 2020-10-18 10:27 | P.PN ---
Progress Note - Text Progress Note Date: 10/18/20 Interval History: Patient was seen resting in bed and was directable and agreeable to speak with underwriter solicitation director in her room. The patient reports that she is feeling "better." Patient reports she was able to sleep better last night although she does have some difficulty falling asleep. She is currently wandering the hallways without any assistance and is more responsive to questioning. She reports suicidal ideation today but denies any intention and/or plan. She reports no homicidal ideation, intention, and/or plan. She also reports auditory hallucinations but states that they have decreased in frequency over the past few days. She reports that when she experiences the voices they tell her mean things or command her to do things. She is not reporting any visual hallucinations today. She reports no paranoia or other delusions. She has been adherent with her medications and is currently not reporting any side effects. She states she was able to have a bowel movement last night. She reports no issues with appetite. Vital Signs Temp 98.2 F 10/18/20 06:44 Pulse 90 10/18/20 06:44 Resp 17 10/18/20 06:44 BP 130/75 10/18/20 06:44 Pulse Ox 97 10/18/20 06:44 Mental Status Exam: General Appearance: Patient appears to be stated age is alert, directable, and cooperative. Patient is an obese body habitus. Fair hygiene and grooming. Dressed in a hospital gown. Behavior: Patient is calmly lying in bed without any agitated behavior. Eye contact is appropriate. Psychomotor activity is slow but improving. Speech: Patient's speech is nonspontaneous, low in volume, and more responsive today. Normal fluency and monotone. Mood/Affect: Patient reports her mood is "better." Affect is blunted but improving. Suicidality/Homicidality: Patient endorses suicidal ideation but no intention and/or plan. No homicidal ideation/intention/plan. Perceptions: Patient admits to auditory hallucinations but denies any visual. Though content/process: No delusional thought content is endorsed. Thought process is linear and logical in short conversation. Memory and concentration: Grossly intact for the purposes of this session. Judgment and insight: Mildly improving. Assessment Bipolar disorder, type I, depressed episode Plan: -Patient continues to meet criteria for inpatient psychiatric admission for symptom stabilization and safety. The patient has been petitioned and certified. The patient scheduled for deferral today. -Medications: Continue Clozaril 25 mg in the morning and 200 mg at bedtime for psychosis Continue Cymbalta 30 mg by mouth in the morning and 60 mg at bedtime for depression. -Labs reviewed. BUN and Cr are elevated but trending downward. AST and ALT are slightly elevated. -When necessary Ativan and Haldol for agitation/aggression. -SW on board for discharge planning. Encouraged the patient to participate in milieu.
[2020-10-18] MEDS: DULoxetine HCL 60 MG CAPSULE.DR PO SCH (20:31)
[2020-10-18] MEDS: cloZAPine 100 MG TAB PO SCH (20:31)
[2020-10-18] MEDS: ACETAMINOPHEN TAB 325 MG TAB PO PRN (20:32)
[2020-10-19] MEDS: LEVOTHYROXINE 88 MCG TAB PO SCH (06:18)
[2020-10-19] MEDS: FENOFIBRATE 160 MG TAB PO SCH (08:23)
[2020-10-19] MEDS: MELOXICAM 7.5 MG TAB PO SCH (08:23)
[2020-10-19] MEDS: ASPIRIN 81 MG PO SCH (08:23)
[2020-10-19] MEDS: cloZAPine 25 MG TAB PO SCH (08:24)
[2020-10-19] MEDS: metFORMIN 500 MG TAB PO SCH ×2 (08:25→21:31)
[2020-10-19] MEDS: ISOSORBIDE MONONITRATE ER 30 MG TAB.ER.24H PO SCH (08:25)
[2020-10-19] MEDS: NON FORMULARY DRUG (Omega-3 Acid Ethyl Esters [Lovaza] 1 GM Capsule) PO SCH ×2 (08:25→21:31)
[2020-10-19] MEDS: DULoxetine HCL 30 MG CAPSULE.DR PO SCH (08:25)
[2020-10-19 08:50] LABS: Basophils # (A) 0.1 k/uL (0-0.2); Basophils % (A) 1 %; Eosinophils % (A) 0 %; HCT 40.7 % (34.0-46.0); HGB 13.7 gm/dL (11.4-16.0); Lymphocytes # (A) 1.1 k/uL (1.0-4.8); Lymphocytes % (A) 12 %; MCH 29.2 pg (25.0-35.0); MCHC 33.7 g/dL (31.0-37.0); MCV 86.6 fL (80.0-100.0); Mean Platelet Volume 8.6; Monocytes # (A) 0.7 k/uL (0-1.0); Monocytes % (A) 7 %; Neutrophils # (A) 6.8 k/uL (1.3-7.7); Neutrophils % (A) 78 %; Platelet Count 198 k/uL (150-450); WBC 8.7 k/uL (3.8-10.6)
--- NOTE | 2020-10-19 09:51 | P.PN ---
Progress Note - Text Progress Note Date: 10/19/20 Interval History: Patient was seen sitting upright in her chair. The patient reports she feels "terrible." When asked why she does, the patient states "I'm not sure why." She does express she has been experiencing auditory hallucinations. During the interview the patient did appear to respond to internal stimuli and stared intently at the corner of the room which was empty. When asked what she was looking at, the patient responded, "I thought I saw something, but I guess not." She does appear to be responding to internal stimuli. She is not reporting any suicidal or homicidal ideation, intention, and/or plan. She is not reporting any paranoia or other delusions. The patient has been having difficulty with walking and is disoriented at times. She has been noted to have dark urine. She is back on a 1:1 supervision. The patient has been adherent with her medications and is not reporting any significant side effects at this time. Vital Signs Temp 98.5 F 10/19/20 08:35 Pulse 101 H 10/19/20 08:35 Resp 16 10/19/20 08:35 BP 119/81 10/19/20 08:35 Pulse Ox 94 L 10/19/20 08:35 Mental Status Exam: General Appearance: Patient appears to be stated age is alert, directable, and cooperative. Patient is an obese body habitus. Fair hygiene and grooming. Dressed in a hospital gown. Behavior: Patient is calmly lying in bed without any agitated behavior. Eye contact is poor. Patient appears to respond to internal stimuli. Stares off at an empty corner intently and reacts to what she is seeing. Speech: Patient's speech is nonspontaneous, low in volume, dysarthric. Mood/Affect: Patient reports her mood is "Terrible." Affect is blunted. Suicidality/Homicidality: Patient does not endorse any suicidal or homicidal ideation, intention, and/or plan. Perceptions: Patient admits to auditory hallucinations. She endorses visual hallucinations. Though content/process: No delusional thought content is endorsed. Thought process is linear but illogical in short conversation. Memory and concentration: Grossly intact for the purposes of this session. Judgment and insight: Mildly improving. Assessment Bipolar disorder, type I, depressed episode Plan: -Patient continues to meet criteria for inpatient psychiatric admission for symptom stabilization and safety. The patient has been petitioned and certified. The patient did not defer and is scheduled for court on 10/26/2020. -Medications: Continue Clozaril 25 mg in the morning and 200 mg at bedtime for psychosis. Awaiting clozaril level. Will titrate the medication in response to level. Continue Cymbalta 30 mg by mouth in the morning and 60 mg at bedtime for depression. -Awaiting clozaril level -When necessary Ativan and Haldol for agitation/aggression. -SW on board for discharge planning. Encouraged the patient to participate in milieu.
[2020-10-19 14:28] LABS: Clozapine (Clozaril) 778 ng/mL (200-700); Norclozapine 379 ng/mL (200-700)
[2020-10-19 14:35] LABS: Appearance,Urine Clear (Clear); Bilirubin,Urine Negative (Negative); Blood,Urine Negative (Negative); Color,Urine Light Yellow; Glucose,Urine (UA) Negative (Negative); Ketones,Urine Negative (Negative); Leukocyte Esterase,Urine Negative (Negative); Nitrite,Urine Negative (Negative); Protein,Urine Negative (Negative); Urobilinogen,Urine <2.0 mg/dL (<2.0)
[2020-10-19] MEDS: LORazepam 1 MG TAB PO PRN (17:14)
--- NOTE | 2020-10-19 21:08 | P.PN ---
Progress Note - Text Progress Note Date: 10/19/20 patient does not answer any of ;my questions or provide any history she allowed me to examine her she has left lower extremity swelling of the leg, erythema and warm to the touch, it seem to be also tender to palpation rule out DVT check D -dimer check venous duplex US of bilateral lower extremities patient was examined with Lisette VERA at bedside,.
[2020-10-19] MEDS: cloZAPine 100 MG TAB PO SCH (21:31)
[2020-10-19] MEDS: DULoxetine HCL 60 MG CAPSULE.DR PO SCH (21:31)
--- NOTE | 2020-10-19 22:08 | US ---
EXAMINATION TYPE: US venous doppler duplex LE DATE OF EXAM: 10/19/2020 9:40 PM COMPARISON: NONE CLINICAL HISTORY: dvt?. R/O DVT. Lower extremities appear to be swollen. Unable to get a history from patient. SIDE PERFORMED: Bilateral TECHNIQUE: The lower extremity deep venous system is examined utilizing real time linear array sonog alonzo with graded compression, doppler sonography and color-flow sonography. VESSELS IMAGED: Common Femoral Vein Deep Femoral Vein Greater Saphenous Vein * Femoral Vein Popliteal Vein Small Saphenous Vein * Proximal Calf Veins (* superficial vessels) Right Leg: Internal echoes seen within the popliteal vein. Popliteal vein does not appear to compre ss and shows color defect. Left Leg: Internal echoes seen from CFV down through the prox calf veins. No compressions performed due to internal echoes and limited color flow seen. IMPRESSION: There is evidence of acute bilateral deep vein thrombosis. There is thrombus in the right leg poplite al vein and in the left leg in the femoral vein popliteal vein and calf veins.
[2020-10-20] MEDS: APIXABAN 5 MG TAB PO SCH ×3 (01:36→21:04)
[2020-10-20] MEDS: LEVOTHYROXINE 88 MCG TAB PO SCH ×2 (05:40→09:18)
[2020-10-20] MEDS: ASPIRIN 81 MG PO SCH (08:17)
[2020-10-20] MEDS: MELOXICAM 7.5 MG TAB PO SCH (08:17)
[2020-10-20] MEDS: ISOSORBIDE MONONITRATE ER 30 MG TAB.ER.24H PO SCH (08:18)
[2020-10-20] MEDS: NON FORMULARY DRUG (Omega-3 Acid Ethyl Esters [Lovaza] 1 GM Capsule) PO SCH ×2 (08:18→20:45)
[2020-10-20] MEDS: metFORMIN 500 MG TAB PO SCH ×2 (08:18→21:04)
[2020-10-20] MEDS: DULoxetine HCL 30 MG CAPSULE.DR PO SCH (08:19)
[2020-10-20] MEDS: FENOFIBRATE 160 MG TAB PO SCH (08:19)
[2020-10-20] MEDS: cloZAPine 25 MG TAB PO SCH (09:23)
--- NOTE | 2020-10-20 11:34 | P.PN ---
Progress Note - Text Progress Note Date: 10/20/20 Interval History: Patient was seen sitting upright in her chair. The patient reports she feels "okay." She reports no suicidal ideation, intention, and/or plan. She states she has some homicidal ideation "because the voices tell her so." She denies any intention or plan to act on these voices. She reports she last heard the voices last night. She is denying any current auditory or visual hallucinations. She reports no paranoia or other delusions. She has been adherent with her medications and is not reporting any significant side effects at this time. She reports no issues with sleep or appetite. She denies any chest pain or shortness of breath. The patient does report today she is eager for discharge. Vital Signs Temp 98.0 F 10/20/20 09:26 Pulse 88 10/20/20 08:00 Resp 16 10/20/20 08:00 BP 121/64 10/20/20 08:00 Pulse Ox 94 L 10/19/20 08:35 Mental Status Exam: General Appearance: Patient appears to be stated age is alert, directable, and cooperative. Patient is an obese body habitus. Fair hygiene and grooming. Dressed in a hospital gown. Behavior: Patient is calmly lying in bed without any agitated behavior. Eye contact has improved. Speech: Patient's speech is nonspontaneous, low in volume, clearer today. Mood/Affect: Patient reports her mood is "Okay." Affect is blunted. Suicidality/Homicidality: Patient does not endorse any suicidal ideation, intention, and/or plan. She reports homicidal ideation but no intention, plan or means. Perceptions: Patient admits to auditory hallucinations. She denies visual hallucinations. Though content/process: No delusional thought content is endorsed. Thought process is linear but illogical in short conversation. Memory and concentration: Grossly intact for the purposes of this session. Judgment and insight: Mildly improving. Assessment Bipolar disorder, type I, depressed episode Plan: -Patient continues to meet criteria for inpatient psychiatric admission for symptom stabilization and safety. The patient has been petitioned and c ertified. The patient did not defer and is scheduled for court on 10/26/2020. -Patient likely to discharge tomorrow. -Medications: Continue Clozaril 225 mg at bedtime. Clozaril level supertherapeutic at 778 but norclozapine is WNL at 379. We will move daytime clozaril to bedtime. Continue Cymbalta 30 mg by mouth in the morning and 60 mg at bedtime for depression. -When necessary Ativan and Haldol for agitation/aggression. -SW on board for discharge planning. Encouraged the patient to participate in milieu.
[2020-10-20 12:18] LABS: Clozapine (Clozaril) 667 ng/mL (200-700); Norclozapine 370 ng/mL (200-700)
[2020-10-20 13:36] VITALS: BMI 39.6
[2020-10-20] MEDS: LORazepam 1 MG TAB PO PRN (19:15)
[2020-10-20] MEDS ORDERED: cloZAPine 25 MG TAB PO SCH (21:00)
[2020-10-20] MEDS ORDERED: TOPIRAMATE 25 MG TAB PO SCH (21:00)
[2020-10-20] MEDS: cloZAPine 100 MG TAB PO SCH (21:03)
[2020-10-20] MEDS: DULoxetine HCL 60 MG CAPSULE.DR PO SCH (21:03)
[2020-10-21] MEDS: LEVOTHYROXINE 88 MCG TAB PO SCH (06:41)
[2020-10-21] MEDS: NON FORMULARY DRUG (Omega-3 Acid Ethyl Esters [Lovaza] 1 GM Capsule) PO SCH ×2 (07:49→20:38)
[2020-10-21] MEDS: ASPIRIN 81 MG PO SCH (07:57)
[2020-10-21] MEDS: ISOSORBIDE MONONITRATE ER 30 MG TAB.ER.24H PO SCH ×2 (07:58→08:35)
[2020-10-21] MEDS: APIXABAN 5 MG TAB PO SCH ×2 (07:58→20:38)
[2020-10-21] MEDS: MELOXICAM 7.5 MG TAB PO SCH (07:58)
[2020-10-21] MEDS: metFORMIN 500 MG TAB PO SCH ×2 (07:59→20:37)
[2020-10-21] MEDS: DULoxetine HCL 30 MG CAPSULE.DR PO SCH (07:59)
[2020-10-21] MEDS: FENOFIBRATE 160 MG TAB PO SCH (07:59)
--- NOTE | 2020-10-21 11:23 | P.DS ---
Providers Date of admission: 10/09/20 16:57 Expected date of discharge: 10/21/20 Attending physician: Bhavin Lima MD Consults: 10/09/20 17:02 Consult Physician Routine Consulting Provider: Tea Augustin Consult Reason/Comments: medical management Do you want consulting provider notified?: Yes Primary care physician: Giuseppe Saenz - Discharge Diagnosis(es) (1) Schizoaffective disorder, bipolar type Current Visit: Yes Status: Acute Priority: High Hospital Course: Admission HPI: Initial psychiatric evaluation was completed by Dr. Carranza on 10/10/2020 who wrote: "The patient is a 49-year-old female. She lives with her . She presented to the hospital on [place] for evaluation. Patient was not able to communicate. According to her , she was depressed and contemplating suicide. The patient was not able to provide any information was essentially mute. Dr. Carl provide most information back to buy some information from the medical record. The patient has had long-term psychiatric issues. His she had an admission here in September 2013. At that time, the patient was diagnosed with bipolar disorder and had worsening bipolar symptoms with disorganized thinking, fluctuating mood, sleep problems, pacing, and restless behavior and disorganized thoughts. On discharge, she was on Abilify 30 mg a day, Effexor XR, Tegretol- XR, and Desyrel. Discharge diagnoses of bipolar disorder mixed episode, with psychosis. According to Dr. Carl, the patient had a progressive decline in her function leading up to her 2013 hospitalization. There was concern about possible schizophrenia. Following the 2014 hospitalization she did quite well and has not had any further hospitalizations until the present. Over the past 6 years the patient has been doing quite well. She seemed to be well stabilized on Clozaril. There was some question about dosing over the last 2 months. The patient had been complaining of tiredness the causal dose had been reduced some. Her current causal doses 100 mg twice a day. Her has been working second shift and there was concern that the patient has become increasingly distressed and fearful and most likely not taking her evening dose of Clozaril. She is followed by ACT, though she had not been responding to any other efforts at contact. ACT team was suspecting that she was likely not taking Clozaril consistently. She had a fair amount of anxiety and had been on Klonopin for a period of time and was weaned off about [address] Carl noted that in the last few months she had a gradual decline. Dr. Carl's noting that she seems to be at about the same point where she was 6 years ago that led her to come into the hospital. The patient was at the . It is not clear how consistently reliable he is as a support, given his situation with work and other factors. Other medications that the patient is on Cymbalta and Lexapro as other psychoactive medications. She is admitted for further evaluation. Hospital course: Upon admission to the unit patient was initially presenting as mute, with catatonic symptoms. The patient was given Ativan trial with mild improvement in her responsiveness. The patient was petitioned and certified and a second certificate was completed. In order to avoid polypharmacy, the patient's Lexapro was discontinued. Cymbalta was gradually titrated to address depressive symptoms. There was concern that the patient appeared to be significantly blunted in affect secondary to her Clozaril. Clozaril was therefore moved primarily towards bedtime. Medication was gradually titrated to final dose of 225 mg at bedtime. A Clozaril level was obtained on 10/18/2020 with a clozapine level of 667 at the trough. Norclozapine level was 370. During the hospital stay the patient also had significant medical problems. She was evaluated by the medical team for a history and physical examination. There was concern for DVTs and the patient was managed with eliquis. Furthermore, the patient did display significant swelling in her lower extermities. Despite her medical issues, the patient did display a gradual improvement in regards to her range of affect, her responsiveness, and her ability to follow directions. She became more responsive in questioning. She displayed an ability to take care of her ADLs better including feeding herself. On the day of discharge, the patient does not report any suicidal or homicidal ideation, intention, and/or plan. She reports no auditory hallucinations but does admit that she had auditory hallucinations earlier during the hospitalization. She does report that these auditory hallucinations did encourage her to hurt herself. She occasionally states that she has some visual disturbances. The patient does not report any access to firearms or other weapons. She expresses a desire not to hurt herself. She is reporting no issues with sleep or appetite. She denies any significant side effects of her medications. She reports no chest pain, constipation, or shortness of breath. The patient denies any paranoia or other delusions. The patient has been petitioned and certified. She did meet with an privacy attorney but due to the severity of her thought blocking, the patient was been minimally responsive and unable to sign a deferral. At this time, we are awaiting to hear back from the patient's privacy attorney to see if she is able to sign a deferral or waive and stipulate. Should that not be the case, we are encouraging the patient's and the patient's ACT team to ensure that she is present for court (virtually) on 10/26/2020. Prior to discharge, family meeting will be arranged to make arrangements and ensure safety. Mental status exam: General Appearance: Patient appears to be stated age is alert, scared but cooperative. Patient is in no acute distress and has much improved hygiene and grooming. Behavior: Patient is calmly seated without any agitated behavior. Eye contact is intermittent. Speech: Patient's speech is nonspontaneous, low in volume, and monotone. Mood/Affect: Patient reports their mood is "a little anxious", affect is congruent and nervous. Suicidality/Homicidality: Patient denies having any suicidal or homicidal ideation, intention, means or plan. Perceptions: Patient admits to occasional auditory or visual hallucinations. Though content/process: There is no evidence of any delusional thought content and thought process is linear and goal-directed. Patient is future-oriented. Memory and concentration: AOX3, grossly intact for the purposes of this session. Judgment and insight: Improved with guarded prognosis Impression: Schizoaffective Disorder, bipolar type Plan: -Continue with discharge today as patient has improved and stabilized psychiatrically and is not currently an imminent threat to herself and/or others. Patient will remain at chronically elevated risk for harm to self and/or others due to her severity of mental illness. -Continue medications: Clozaril 225 mg at bedtime for psychosis - Clozapine level 667 (200-700 regular range), Norclozapine 370 Cymbalta 30 mg daily and 60 mg at bedtime for depression Medical medications: Eliquis, metformin, imdur, mobic, synthroid. - Patient is scheduled for court on 10/26/2020. We will need to ensure a means for the patient to attend should she be unable to waive and stipulate. -Patient was counseled on the need for medication compliance and appropriate follow-up at mental health and also primary care for medical issues. Patient verbalized understanding and agreed. -Social work to arrange for and conduct family meeting to ensure safety upon discharge and answer any questions/concerns. Social work also to arrange for patients follow up appointments with [facility] for psychiatric care along with follow up with primary care provider. -Patient counseled on abstaining from recreational drugs and marijuana and alcohol. Was informed/educated on the adverse effects on their physical and mental health. -Patient was instructed to return to the hospital or seek immediate medical care if their psychiatric or medical symptoms do worsen or reoccur. -Psychoeducation and supportive therapy provided to patient. Risks and benefits of pharmacological treatment versus the risks and benefits of nontreatment weight and discussed. Informed consent discussion held. Common side effects of psychotropics discussed such as, but not limited to headache, GI disturbance, sexual dysfunction, movement disorders, sedation, and orthostatic hypotension. Life threatening and blackbox warnings of prescribed medications also discussed. Potential risks of operating a vehicle or heavy machinery discussed with patient at length. Advised on importance of compliance and a reliable and responsible manner. Patient advised to review FDA consumer labeling of all medications prior to taking. Patient verbalized understanding of potential risks, and agrees with current treatment plan. Patient advised to medically contact physician/emergency personnel if any acute changes in condition occur. Vital Signs Temp 98.1 F 10/21/20 08:36 Pulse 90 10/21/20 08:36 Resp 16 10/21/20 08:36 BP 104/55 10/21/20 08:36 Pulse Ox 91 L 10/21/20 06:41 Intake & Output 10/20/20 10/21/20 10/21/20 18:59 06:59 18:59 Weight 115 kg Laboratory Results WBC 8.7 k/uL (3.8-10.6) 10/19/20 08:05 RBC 4.70 m/uL (3.80-5.40) 10/19/20 08:05 Hgb 13.7 gm/dL (11.4-16.0) 10/19/20 08:05 Hct 40.7 % (34.0-46.0) 10/19/20 08:05 MCV 86.6 fL (80.0-100.0) 10/19/20 08:05 MCH 29.2 pg (25.0-35.0) 10/19/20 08:05 MCHC 33.7 g/dL (31.0-37.0) 10/19/20 08:05 RDW 14.0 % (11.5-15.5) 10/19/20 08:05 Plt Count 198 k/uL (150-450) 10/19/20 08:05 MPV 8.6 10/19/20 08:05 Neutrophils % 78 % 10/19/20 08:05 Lymphocytes % 12 % 10/19/20 08:05 Monocytes % 7 % 10/19/20 08:05 Eosinophils % 0 % 10/19/20 08:05 Basophils % 1 % 10/19/20 08:05 Neutrophils # 6.8 k/uL (1.3-7.7) 10/19/20 08:05 Lymphocytes # 1.1 k/uL (1.0-4.8) 10/19/20 08:05 Monocytes # 0.7 k/uL (0-1.0) 10/19/20 08:05 Eosinophils # 0.0 k/uL (0-0.7) 10/19/20 08:05 Basophils # 0.1 k/uL (0-0.2) 10/19/20 08:05 D-Dimer 7.15 mg/L FEU (<0.60) H 10/19/20 22:10 Sodium 140 mmol/L (137-145) 10/18/20 07:18 Potassium 4.0 mmol/L (3.5-5.1) 10/18/20 07:18 Chloride 103 mmol/L (98-107) 10/18/20 07:18 Carbon Dioxide 24 mmol/L (22-30) 10/18/20 07:18 Anion Gap 13 mmol/L 10/18/20 07:18 BUN 23 mg/dL (7-17) H 10/18/20 07:18 Creatinine 1.10 mg/dL (0.52-1.04) H 10/18/20 07:18 Est GFR (CKD-EPI)AfAm 67 (>60 ml/min/1.73 sqM) 10/18/20 07:18 Est GFR (CKD-EPI)NonAf 58 (>60 ml/min/1.73 sqM) 10/18/20 07:18 Glucose 145 mg/dL (74-99) H 10/18/20 07:18 POC Glucose (mg/dL) 173 mg/dL (75-99) H 10/10/20 18:49 POC Glu Guard Entrance Registrar ID Gurdeep Obrien 10/10/20 18:[address] Glu mg/dL 108 10/10/20 07:09 Hemoglobin A1c 5.4 % (4.0-6.0) 10/10/20 07:09 Calcium 10.0 mg/dL (8.4-10.2) 10/18/20 07:18 Magnesium 2.0 mg/dL (1.6-2.3) 10/11/20 08:19 Total Bilirubin 0.8 mg/dL (0.2-1.3) 10/18/20 07:18 AST 51 U/L (14-36) H 10/18/20 07:18 ALT 47 U/L (4-34) H 10/18/20 07:18 Alkaline Phosphatase 66 U/L (38-126) 10/18/20 07:18 Total Protein 7.1 g/dL (6.3-8.2) 10/18/20 07:18 Albumin 4.4 g/dL (3.5-5.0) 10/18/20 07:18 Triglycerides 176.0 mg/dL (0.0-149.0) H 10/10/20 07:09 Cholesterol 150 mg/dL (0-200) 10/10/20 07:09 LDL Cholesterol, Calc 80.8 mg/dL (0.0-131.0) 10/10/20 07:09 VLDL Cholesterol, Calc 35.20 mg/dL (5.00-40.00) 10/10/20 07:09 HDL Cholesterol 34.0 mg/dL (40.0-60.0) L 10/10/20 07:09 Cholesterol/HDL Ratio 4.41 10/10/20 07:09 Urine Color Light Yellow 10/19/20 12:45 Urine Appearance Clear (Clear) 10/19/20 12:45 Urine pH 6.0 (5.0-8.0) 10/19/20 12:45 Ur Specific Pax 1.010 (1.001-1.035) 10/19/20 12:45 Urine Protein Negative (Negative) 10/19/20 12:45 Urine Glucose (UA) Negative (Negative) 10/19/20 12:45 Urine Ketones Negative (Negative) 10/19/20 12:45 Urine Blood Negative (Negative) 10/19/20 12:45 Urine Nitrite Negative (Negative) 10/19/20 12:45 Urine Bilirubin Negative (Negative) 10/19/20 12:45 Urine Urobilinogen <2.0 mg/dL (<2.0) 10/19/20 12:45 Ur Leukocyte Esterase Negative (Negative) 10/19/20 12:45 Urine WBC 1 /hpf (0-5) 10/11/20 09:27 Ur Squamous Epith Cells 4 /hpf (0-4) 10/11/20 09:27 Amorphous Sediment Rare /hpf (None) H 10/11/20 09:27 Urine Bacteria Many /hpf (None) H 10/11/20 09:27 Urine Mucus Few /hpf (None) H 10/11/20 09:27 Urine Opiates Screen Negative ng/mL (Negative) 10/11/20 09:27 Urine Methadone Screen Negative ng/mL (Negative) 10/11/20 09:27 Ur Propoxyphene Screen Negative ng/mL (Negative) 10/11/20 09:27 Urine Barbiturates Negative ng/mL (Negative) 10/11/20 09:27 Ur Phencyclidine Scrn Negative ng/mL (Negative) 10/11/20 09:27 Clozapine 667 ng/mL (200-700) 10/18/20 19:33 Norclozapine 370 ng/mL (200-700) 10/18/20 19:33 Ur Amphetamine Screen Negative ng/mL (Negative) 10/11/20 09:27 U Benzodiazepines Scrn Negative ng/mL (Negative) 10/11/20 09:27 Urine Cocaine Screen Negative ng/mL (Negative) 10/11/20 09:27 U Cannabinoids Screen Negative ng/mL (Negative) 10/11/20 09:27 Urine Alcohol Negative mg/dL (Negative) 10/11/20 09:27 Coronavirus (PCR) Not Detected (Not Detectd) 10/09/20 17:11 Allergies Allergy/AdvReac Type Severity Reaction Status Date / Time cefuroxime axetil Allergy Rash/Hives Verified 10/15/20 20:49 [From Ceftin] Penicillins Allergy Rash/Hives Verified 10/15/20 20:49 thioridazine AdvReac muscle Verified 10/15/20 20:49 stiffness Patient Condition at Discharge: Stable Plan - Discharge Summary Discharge Rx Participant: No New Discharge Prescriptions: New cloZAPine [Clozaril] 25 mg PO HS 30 Days tab DULoxetine HCL [Cymbalta] 60 mg PO HS 30 Days capsule. Apixaban [Eliquis] 10 mg PO BID 30 Days tab metFORMIN HCL [Glucophage] 500 mg PO BID 30 Days tab Isosorbide Mononitrate ER [Imdur] 30 mg PO DAILY 30 Days tab.er.24h Fenofibrate [Lofibra] 160 mg PO DAILY 30 Days tab cloZAPine [Clozaril] 200 mg PO HS 30 Days tab DULoxetine HCL [Cymbalta] 30 mg PO DAILY 30 Days capsule. Meloxicam [Mobic] 7.5 mg PO DAILY 30 Days tab Levothyroxine Sodium [Synthroid] 88 mcg PO 0630 30 Days tab Continue Atorvastatin Calcium [Lipitor] 40 mg PO DAILY #30 tab Raymond-3 Acid Ethyl Esters [Lovaza] 2 gm PO BID Raymond-3 Fatty Acids [Raymond-3] 1,000 mg PO DAILY Cholecalciferol [Vitamin D3 (25 Mcg = 1000 Iu)] 50 mcg PO DAILY Discontinued Celecoxib [CeleBREX] 200 mg PO DAILY DULoxetine HCL [Cymbalta] 60 mg PO DAILY Escitalopram Oxalate [Lexapro] 10 mg PO DAILY Isosorbide Mononitrate ER [Imdur] 30 mg PO DAILY cloZAPine [Clozaril] 100 mg PO BID Fenofibrate,Micronized [Fenofibrate] 134 mg PO DAILY Levothyroxine Sodium [Synthroid] 88 mcg PO DAILY metFORMIN HCL [metFORMIN HCL ER] 1,000 mg PO W/SUPPER Discharge Medication List Atorvastatin Calcium [Lipitor] 40 mg PO DAILY #30 tab 10/26/13 [Rx] Raymond-3 Acid Ethyl Esters [Lovaza] 2 gm PO BID 10/09/20 [History] Cholecalciferol [Vitamin D3 (25 Mcg = 1000 Iu)] 50 mcg PO DAILY 10/10/20 [History] Raymond-3 Fatty Acids [Raymond-3] 1,000 mg PO DAILY 10/10/20 [History] Apixaban [Eliquis] 10 mg PO BID 30 Days tab 10/21/20 [Rx] DULoxetine HCL [Cymbalta] 30 mg PO DAILY 30 Days capsule. 10/21/20 [Rx] DULoxetine HCL [Cymbalta] 60 mg PO HS 30 Days capsule. 10/21/20 [Rx] Fenofibrate [Lofibra] 160 mg PO DAILY 30 Days tab 10/21/20 [Rx] Isosorbide Mononitrate ER [Imdur] 30 mg PO DAILY 30 Days tab.er.24h 10/21/20 [Rx] Levothyroxine Sodium [Synthroid] 88 mcg PO 30 30 Days tab 10/21/20 [Rx] Meloxicam [Mobic] 7.5 mg PO DAILY 30 Days tab 10/21/20 [Rx] cloZAPine [Clozaril] 25 mg PO HS 30 Days tab 10/21/20 [Rx] cloZAPine [Clozaril] 200 mg PO HS 30 Days tab 10/21/20 [Rx] metFORMIN HCL [Glucophage] 500 mg PO BID 30 Days tab 10/21/20 [Rx] Follow up Appointment(s)/Referral(s): Ambrosio Garcia MD [STAFF PHYSICIAN] - 4 Weeks (unprovoked Deep Vein thrombosis) Giuseppe Saenz MD [Primary Care Provider] - 1 Week () Patient Instructions/Handouts: Deep Vein Thrombosis (DC) Activity/Diet/Wound Care/Special Instructions: Activity and diet as tolerated. Avoid the use of street drugs and alcohol. Take all medications as prescribed. When you are in need of refills on your me dications please contact your medical provider and/or outpatient psychiatrist to have this done. Please go to scheduled outpatient appointment for aftercare treatment. If symptoms return or become worse, call the crisis line at and/or go to the nearest emergency room for evaluation. Eliquis 10mg twice a day X7 days (10/20-10/27/20) then decrease Eliquis to 5 mg twice a day for 3 months (01/25/2021) for blood clots in bilateral legs. Please consult with your physician before discontinuing this medication. Discharge Disposition: HOME WITH HOME HEALTH SERVICES
--- NOTE | 2020-10-21 17:00 | P.PN ---
Subjective Progress Note Date: 10/21/20 Principal diagnosis: lower extremity swelling Patient is a 49 yo CF currently on the mental health unit who has been found to have bilateral lower extremity DVT. Patient seen and examined at bedside. She appears anxious and that she is responding to internal stimuli. She denies chest pain, calf pain, and has mild shortness of breath. She has been up and walking short distances per nursing She stops answering questions. Per nursing she has not been noted to have blood in urine/stool. Has been eating and drinking okay. GEN: ill appearing, non toxic CV: S1S2 reg, + PT pulse bilateral Lungs: Faint wheeze left base, no accessory muscle use, no conversational dyspnea EXT: bilateral lower extremity non pitting edema worse on the left than right, no erythema B/l LE DVT - eliquis - no compression, continue with elevation - nursing to monitor for signs/symptoms of bleeding - follow-up with PCP - CBC in AM Objective - Vital Signs Vital signs: Vital Signs Temp 98.1 F 10/21/20 08:36 Pulse 90 10/21/20 08:36 Resp 16 10/21/20 08:36 BP 104/55 10/21/20 08:36 Pulse Ox 91 L 10/21/20 06:41 Intake & Output 10/20/20 10/21/20 10/21/20 18:59 06:59 18:59 Weight 115 kg - Labs CBC & Chem 7: 10/19/20 08:05 10/18/20 07:18
[2020-10-21] MEDS: DULoxetine HCL 60 MG CAPSULE.DR PO SCH (20:37)
[2020-10-21] MEDS: cloZAPine 100 MG TAB PO SCH (20:37)
[2020-10-21] MEDS: cloZAPine 25 MG TAB PO SCH (20:37)
[2020-10-22 08:13] LABS: HCT 36.4 % (34.0-46.0); HGB 12.6 gm/dL (11.4-16.0); MCH 29.6 pg (25.0-35.0); MCHC 34.6 g/dL (31.0-37.0); MCV 85.6 fL (80.0-100.0); Platelet Count 256 k/uL (150-450); RBC 4.25 m/uL (3.80-5.40); RDW 14.4 % (11.5-15.5); WBC 6.9 k/uL (3.8-10.6)
[2020-10-22] MEDS: LEVOTHYROXINE 88 MCG TAB PO SCH (08:37)
[2020-10-22] MEDS: MELOXICAM 7.5 MG TAB PO SCH (08:37)
[2020-10-22] MEDS: DULoxetine HCL 30 MG CAPSULE.DR PO SCH (08:38)
[2020-10-22] MEDS: ASPIRIN 81 MG PO SCH (08:39)
[2020-10-22] MEDS: APIXABAN 5 MG TAB PO SCH ×2 (08:43→21:23)
[2020-10-22] MEDS: metFORMIN 500 MG TAB PO SCH ×2 (08:43→21:24)
[2020-10-22] MEDS: NON FORMULARY DRUG (Omega-3 Acid Ethyl Esters [Lovaza] 1 GM Capsule) PO SCH ×2 (08:44→21:26)
[2020-10-22] MEDS: ISOSORBIDE MONONITRATE ER 30 MG TAB.ER.24H PO SCH (08:44)
[2020-10-22] MEDS: FENOFIBRATE 160 MG TAB PO SCH (08:44)
--- NOTE | 2020-10-22 12:36 | P.PN ---
Progress Note - Text Progress Note Date: 10/22/20 Interval History: Patient was seen in her room sitting in the chair and was directable and agreeable to speak with lead technical writer. She is a hardly responsive to any questioning. He just stares in the space. She speaks in a very low monotonous voice and mumbles. She just stays in the room and does not interact with other peers.. At this time patient denies any suicidal or homical ideations, intent or plan. Patient denies any auditory, visual hallucinations and denies any paranoia or delusions. Patient denies any side effects from the medications and has been reportedly compliant with meds. Mental Status Exam: General Appearance: Patient appears to be stated age is alert. Behavior: Patient is calmly seated without any agitated behavior. Speech: Patient's speech is hardly productive Mood/Affect: Mood is blank and affect is constricted Suicidality/Homicidality: Patient denies having any suicidal or homicidal ideation intent or plan. Perceptions: Patient denies any visual hallucinations and denies any auditory hallucinations Though content/process: There is no evidence of any delusional thought content and thought process . Memory and concentration: Not testable Judgment and insight: not Improving Assessment This patient continues to maintain status quo. She does not interact with other peers. She basically stays in the room and wants to be taken care of. Plan: -Patient continues to meet criteria for inpatient psychiatric admission for symptom stabilization and safety. -Medications: -When necessary Ativan and Haldol for agitation/aggression. -SW on board for discharge planning. Encouraged the patient to participate in milieu.
[2020-10-22] MEDS: cloZAPine 100 MG TAB PO SCH (21:23)
[2020-10-22] MEDS: DULoxetine HCL 60 MG CAPSULE.DR PO SCH (21:24)
[2020-10-22] MEDS: cloZAPine 25 MG TAB PO SCH (21:24)
[2020-10-23] MEDS: FENOFIBRATE 160 MG TAB PO SCH (08:08)
[2020-10-23] MEDS: APIXABAN 5 MG TAB PO SCH ×2 (08:08→21:51)
[2020-10-23] MEDS: ASPIRIN 81 MG PO SCH (08:08)
[2020-10-23] MEDS: MELOXICAM 7.5 MG TAB PO SCH (08:08)
[2020-10-23] MEDS: DULoxetine HCL 30 MG CAPSULE.DR PO SCH (08:08)
[2020-10-23] MEDS: metFORMIN 500 MG TAB PO SCH ×2 (08:09→21:51)
[2020-10-23] MEDS: LEVOTHYROXINE 88 MCG TAB PO SCH (08:09)
[2020-10-23] MEDS: ISOSORBIDE MONONITRATE ER 30 MG TAB.ER.24H PO SCH (08:09)
[2020-10-23] MEDS: NON FORMULARY DRUG (Omega-3 Acid Ethyl Esters [Lovaza] 1 GM Capsule) PO SCH ×2 (08:10→21:55)
--- NOTE | 2020-10-23 12:48 | P.PN ---
Progress Note - Text Progress Note Date: 10/23/20 Interval History: Patient was seen in her room and was directable and agreeable to speak with securities underwriter. This patient is still preoccupied and withdrawn and is isolative. At this time patient denies any suicidal or homical ideations, intent or plan. Patient denies any auditory, visual hallucinations and denies any paranoia or delusions. Patient denies any side effects from the medications and has been compliant with meds. Mental Status Exam: General Appearance: Patient appears to be stated and is in the wheelchair. Behavior: Patient is calmly seated without any agitated behavior. Speech: Patient's speech is non-fluent and nonpressured. Mood/Affect: Mood is improving mildly, affect is congruent and constricted. Suicidality/Homicidality: Patient denies having any suicidal or homicidal ideation intent or plan. Perceptions: Patient denies any visual hallucinations and denies any auditory hallucinations Though content/process: There is no evidence of any delusional thought content . Memory and concentration: AOX3, grossly intact for the purposes of this session Judgment and insight: Improving mildly Assessment Patient is isolative withdrawn, preoccupied and stays to herself. Plan: -Patient continues to meet criteria for inpatient psychiatric admission for symptom stabilization and safety. -Medications: Continue medication as before -When necessary Ativan and Haldol for agitation/aggression. -SW on board for discharge planning. Encouraged the patient to participate in milieu.
[2020-10-23] MEDS: LORazepam 1 MG TAB PO PRN (17:09)
[2020-10-23] MEDS: cloZAPine 25 MG TAB PO SCH (21:51)
[2020-10-23] MEDS: DULoxetine HCL 60 MG CAPSULE.DR PO SCH (21:51)
[2020-10-23] MEDS: cloZAPine 100 MG TAB PO SCH (21:51)
[2020-10-24] MEDS: LEVOTHYROXINE 88 MCG TAB PO SCH (06:31)
[2020-10-24] MEDS: metFORMIN 500 MG TAB PO SCH ×2 (09:00→20:53)
[2020-10-24] MEDS: ISOSORBIDE MONONITRATE ER 30 MG TAB.ER.24H PO SCH (09:00)
[2020-10-24] MEDS: MELOXICAM 7.5 MG TAB PO SCH (09:00)
[2020-10-24] MEDS: DULoxetine HCL 30 MG CAPSULE.DR PO SCH (09:00)
[2020-10-24] MEDS: APIXABAN 5 MG TAB PO SCH ×2 (09:00→20:52)
[2020-10-24] MEDS: FENOFIBRATE 160 MG TAB PO SCH (09:01)
[2020-10-24] MEDS: ASPIRIN 81 MG PO SCH (09:01)
[2020-10-24] MEDS: NON FORMULARY DRUG (Omega-3 Acid Ethyl Esters [Lovaza] 1 GM Capsule) PO SCH ×2 (09:01→21:06)
--- NOTE | 2020-10-24 11:27 | P.PN ---
Progress Note - Text Progress Note Date: 10/24/20 Interval History: Patient was seen sitting upright in her wheelchair attending group. The patient reports she feels "fine." Patient does however continues to endorse significant auditory and visual hallucinations. She reports she hears voices that tell her to do things and even hurt herself but is unable to state when she last heard these voices. She does report visual disturbances. She stares intently at this provider and states, "You're fading away" and laughs stating "oh you didn't" after touching his wrist. She otherwise denies any suicidal or homicidal ideation, intention, and/or plan. She reports no side effects of her medications at this time. She reports no issues with sleep or appetite and has been attending groups. Vital Signs Temp 97.4 F L 10/23/20 08:29 Pulse 93 10/24/20 08:00 Resp 16 10/23/20 08:29 BP 116/59 10/24/20 08:00 Pulse Ox 95 10/22/20 08:35 Intake & Output 10/23/20 10/24/20 10/24/20 18:59 06:59 18:59 Weight 112.9 kg Mental Status Exam: General Appearance: Patient appears to be stated age is alert, directable, and cooperative. Patient is an obese body habitus. Fair hygiene and grooming. Dressed in a hospital gown. Behavior: Patient is calmly lying in bed without any agitated behavior. Eye contact is fair. Ambulates with a wheelchair. Speech: Patient's speech is nonspontaneous, low in volume, monotone. Mood/Affect: Patient reports her mood is "fine." Affect is blunted. Suicidality/Homicidality: Patient reports no SI or HI. Perceptions: Patient admits to auditory and visual hallucinations. Though content/process: No delusional thought content is endorsed. Thought process is linear but illogical in short conversation. Memory and concentration: Grossly intact for the purposes of this session. Judgment and insight: Mildly improving. Assessment Bipolar disorder, type I, depressed episode Plan: -Patient continues to meet criteria for inpatient psychiatric admission for symptom stabilization and safety. The patient has been petitioned and certified. The patient did not defer and is scheduled for court on 10/26/2020. -Patient likely to discharge tomorrow. -Medications: Increase Clozaril to 275 mg at bedtime for psychosis. Start Topamax 25 mg at bedtime to augment antipsychotic. Continue Cymbalta 30 mg by mouth in the morning and 60 mg at bedtime for depression. -When necessary Ativan and Haldol for agitation/aggression. -SW on board for discharge planning. Encouraged the patient to participate in milieu.
[2020-10-24] MEDS: cloZAPine 100 MG TAB PO SCH (20:52)
[2020-10-24] MEDS: cloZAPine 25 MG TAB PO SCH (20:53)
[2020-10-24] MEDS: DULoxetine HCL 60 MG CAPSULE.DR PO SCH (20:53)
[2020-10-24] MEDS ORDERED: TOPIRAMATE 25 MG TAB PO SCH (21:00)
[2020-10-24] MEDS: LORazepam 1 MG TAB PO PRN (22:38)
[2020-10-25] MEDS: ACETAMINOPHEN TAB 325 MG TAB PO PRN (03:08)
[2020-10-25] MEDS: ISOSORBIDE MONONITRATE ER 30 MG TAB.ER.24H PO SCH ×2 (08:35→10:04)
[2020-10-25] MEDS: FENOFIBRATE 160 MG TAB PO SCH (08:35)
[2020-10-25] MEDS: DULoxetine HCL 30 MG CAPSULE.DR PO SCH (08:35)
[2020-10-25] MEDS: ASPIRIN 81 MG PO SCH (08:35)
[2020-10-25] MEDS: APIXABAN 5 MG TAB PO SCH ×2 (08:36→21:49)
[2020-10-25] MEDS: MELOXICAM 7.5 MG TAB PO SCH (08:36)
[2020-10-25] MEDS: LEVOTHYROXINE 88 MCG TAB PO SCH (08:36)
[2020-10-25] MEDS: metFORMIN 500 MG TAB PO SCH ×2 (08:36→21:49)
[2020-10-25] MEDS: NON FORMULARY DRUG (Omega-3 Acid Ethyl Esters [Lovaza] 1 GM Capsule) PO SCH ×2 (08:44→21:55)
--- NOTE | 2020-10-25 09:52 | US ---
EXAMINATION TYPE: US venous doppler duplex LE BI DATE OF EXAM: 10/25/2020 12:44 AM COMPARISON: 10/19/2020 CLINICAL HISTORY: Re-evaluate LE TRUONG DVTs. Mental health patient with known DVT bilaterally, reassess today SIDE PERFORMED: Bilateral TECHNIQUE: The lower extremity deep venous system is examined utilizing real time linear array sonog alonzo with graded compression, doppler sonography and color-flow sonography. VESSELS IMAGED: Common Femoral Vein Deep Femoral Vein Greater Saphenous Vein * Femoral Vein Popliteal Vein Small Saphenous Vein * Proximal Calf Veins (* superficial vessels) Right Leg: popiteal vein is still non compressible with internal echoes and minimal flow remain from previous study Left Leg: throughout the left leg non compressible vein with internal echoes and minimal flow remain from previous study IMPRESSION: 1. Bilateral lower extremity acute DVT demonstrates no interval change.
--- NOTE | 2020-10-25 10:18 | P.PN ---
Progress Note - Text Progress Note Date: 10/25/20 Interval History: Patient was seen sitting upright in her room by herself on her chair1. The patient continues to endorse auditory and visual hallucinations. She does report that she hears voices but is unable to determine the content of what is said to her. She continues to endorse significant visual hallucinations and visual disturbances. Today, the patient points at a laundry bag in her room and asked this provider to looking side of it to make sure that there are no animals inside. Furthermore, the patient continues to state that this provider looks like he is "fading away."The patient does express some paranoia when inquired, stating that she is uncertain if people are after her but feels like people are. She continues to also be evaluated for DVT. Patient otherwise reports no issues with appetite or sleep. She is denying any chest pain, shortness of breath, or other side effects of her medications and has been adherent. The patient does participate in milieu activities.She is currently not reporting any suicidal or homicidal ideation, intention, and/or plan. Mental Status Exam: General Appearance: Patient appears to be stated age is alert, directable, and cooperative. Patient is an obese body habitus. Fair hygiene and grooming. Dressed in a hospital gown. Behavior: Patient is calmly sitting upright in her chair without any agitated behavior. Eye contact is fair. Speech: Patient's speech is nonspontaneous, low in volume, monotone. Mood/Affect: Patient reports her mood is "okay, I guess" Affect is blunted and nervous. Suicidality/Homicidality: Patient reports no SI or HI. Perceptions: Patient admits to auditory and visual hallucinations. Though content/process: No delusional thought content is endorsed. Thought process is linear but illogical in short conversation. Memory and concentration: Grossly intact for the purposes of this session. Judgment and insight: Poor. Vital Signs Temp 98.0 F 10/25/20 10:04 Pulse 89 10/25/20 10:04 Resp 16 10/25/20 10:04 BP 103/54 10/25/20 10:04 Pulse Ox 94 L 10/25/20 10:04 Assessment Bipolar disorder, type I, depressed episode Plan: -Patient continues to meet criteria for inpatient psychiatric admission for symptom stabilization and safety. The patient has been petitioned and certified. The patient did not defer and is scheduled for court on 10/26/2020. -Medications: Continue Clozaril 275 mg at bedtime for psychosis. Will obtain clozaril level today. Increase Topamax to 50 mg at bedtime to augment antipsychotic. Continue Cymbalta 30 mg by mouth in the morning and 60 mg at bedtime for depression. -When necessary Ativan and Haldol for agitation/aggression. -SW on board for discharge planning. Encouraged the patient to participate in milieu.
[2020-10-25] MEDS: TOPIRAMATE 25 MG TAB PO SCH (21:49)
[2020-10-25] MEDS: cloZAPine 25 MG TAB PO SCH (21:49)
[2020-10-25] MEDS: cloZAPine 100 MG TAB PO SCH (21:49)
[2020-10-25] MEDS: DULoxetine HCL 60 MG CAPSULE.DR PO SCH (21:49)
[2020-10-26 07:15] LABS: Basophils % (A) 0 %; Eosinophils % (A) 0 %; HCT 39.8 % (34.0-46.0); HGB 12.8 gm/dL (11.4-16.0); Lymphocytes # (A) 1.3 k/uL (1.0-4.8); Lymphocytes % (A) 20 %; MCH 28.3 pg (25.0-35.0); MCHC 32.1 g/dL (31.0-37.0); MCV 88.1 fL (80.0-100.0); Mean Platelet Volume 7.5; Monocytes # (A) 0.4 k/uL (0-1.0); Monocytes % (A) 6 %; Neutrophils # (A) 4.8 k/uL (1.3-7.7); Neutrophils % (A) 72 %; Platelet Count 301 k/uL (150-450); RBC 4.52 m/uL (3.80-5.40); RDW 15.1 % (11.5-15.5); WBC 6.7 k/uL (3.8-10.6)
[2020-10-26] MEDS: metFORMIN 500 MG TAB PO SCH ×2 (09:21→21:34)
[2020-10-26] MEDS: LEVOTHYROXINE 88 MCG TAB PO SCH (09:21)
[2020-10-26] MEDS: DULoxetine HCL 30 MG CAPSULE.DR PO SCH (09:21)
[2020-10-26] MEDS: ASPIRIN 81 MG PO SCH (09:21)
[2020-10-26] MEDS: FENOFIBRATE 160 MG TAB PO SCH (09:22)
[2020-10-26] MEDS: APIXABAN 5 MG TAB PO SCH ×2 (09:22→21:33)
[2020-10-26] MEDS: MELOXICAM 7.5 MG TAB PO SCH (09:22)
[2020-10-26] MEDS: NON FORMULARY DRUG (Omega-3 Acid Ethyl Esters [Lovaza] 1 GM Capsule) PO SCH ×2 (09:23→21:40)
[2020-10-26] MEDS: ISOSORBIDE MONONITRATE ER 30 MG TAB.ER.24H PO SCH (09:41)
--- NOTE | 2020-10-26 10:31 | P.PN ---
Progress Note - Text Progress Note Date: 10/26/20 Interval History: Patient was seen sitting upright in her room by herself on her wheelchair. The patient attended court and is now court-ordered for treatment. Currently the patient continues to report visual hallucinations. She expresses that she sees her brother in her room despite no one else being present. She expresses continuing concern that this provider appears to be "fading" but this time specifically states it is the hands that are "fading away." When inquiring about suicidal ideation, the patient replies, "I guess I must have" and is unable to elaborate further. She denies any homicidal ideation, intention, and/or plan. The patient denies any issues with sleep. She reports no issues with appetite. She has been adherent with her medications and is not reporting any side effects at this time. Clozaril level is pending. Mental Status Exam: General Appearance: Patient appears to be stated age is alert, directable, and cooperative. Patient is an obese body habitus. Fair hygiene and grooming. Dressed in a hospital gown. Behavior: Patient is calmly sitting upright in her chair without any agitated behavior. Eye contact is fair. Speech: Patient's speech is nonspontaneous, low in volume, monotone. Mood/Affect: Patient reports her mood is "ok." Affect is blunted and nervous. Suicidality/Homicidality: Patient reports no SI or HI. Perceptions: Patient admits to visual hallucinations. She reports noauditory hallucinations today. Though content/process: No delusional thought content is endorsed. Thought process is linear but illogical in short conversation. Memory and concentration: Grossly intact for the purposes of this session. Judgment and insight: Poor. Vital Signs Temp 98.5 F 10/26/20 09:41 Pulse 92 10/26/20 09:41 Resp 16 10/26/20 09:41 BP 117/62 10/26/20 09:41 Pulse Ox 94 L 10/25/20 10:04 Assessment Bipolar disorder, type I, depressed episode Plan: -Patient continues to meet criteria for inpatient psychiatric admission for symptom stabilization and safety. The patient has been petitioned and certified. The patient is court-ordered for treatment. -Medications: Continue Clozaril 275 mg at bedtime for psychosis. Awaiting clozaril level. Increase Topamax to 25 mg qAM and 50 mg at bedtime to augment antipsychotic. Continue Cymbalta 30 mg by mouth in the morning and 60 mg at bedtime for depression. -When necessary Ativan and Haldol for agitation/aggression. -SW on board for discharge planning. Encouraged the patient to participate in milieu.
[2020-10-26] MEDS: LORazepam 1 MG TAB PO PRN (17:35)
[2020-10-26] MEDS: cloZAPine 25 MG TAB PO SCH (21:33)
[2020-10-26] MEDS: cloZAPine 100 MG TAB PO SCH (21:33)
[2020-10-26] MEDS: DULoxetine HCL 60 MG CAPSULE.DR PO SCH (21:34)
[2020-10-26] MEDS: TOPIRAMATE 25 MG TAB PO SCH (21:34)
[2020-10-27] MEDS: LEVOTHYROXINE 88 MCG TAB PO SCH (06:37)
[2020-10-27 07:11] VITALS: RESP 18; TEMP 97.1
[2020-10-27] MEDS ORDERED: TOPIRAMATE 25 MG TAB PO SCH (09:00)
[2020-10-27] MEDS: metFORMIN 500 MG TAB PO SCH ×2 (09:07→20:22)
[2020-10-27] MEDS: ASPIRIN 81 MG PO SCH (09:07)
[2020-10-27] MEDS: DULoxetine HCL 30 MG CAPSULE.DR PO SCH ×2 (09:07→09:30)
[2020-10-27] MEDS: MELOXICAM 7.5 MG TAB PO SCH (09:08)
[2020-10-27] MEDS: ISOSORBIDE MONONITRATE ER 30 MG TAB.ER.24H PO SCH (09:08)
[2020-10-27] MEDS: FENOFIBRATE 160 MG TAB PO SCH (09:08)
[2020-10-27] MEDS: APIXABAN 5 MG TAB PO SCH ×2 (09:08→20:21)
[2020-10-27] MEDS: NON FORMULARY DRUG (Omega-3 Acid Ethyl Esters [Lovaza] 1 GM Capsule) PO SCH ×2 (09:18→20:48)
--- NOTE | 2020-10-27 10:09 | P.PN ---
Progress Note - Text Progress Note Date: 10/27/20 Interval History: Patient was seen Standing in her room and was agreeable to speak with freelance copywriter in her room. The patient reports that she is feeling "better I guess." When inquiring about suicidal ideation, the patient stated she "must have had some suicidal ideation prior to coming in here but currently not right now."She is not reporting any homicidal ideation, intention, and/or plan. She is currently not reporting any auditory hallucinations. The patient looks in the mirror and states that "I'm as big as a barn." She was informed that she is on a medication that will help with weight loss as well as augment her antipsychotic medication. Patient is agreeable to take medications at this time and has been adherent. She reports no significant side effects. Patient denies any issues with sleep or appetite. In regards to visual hallucinations, the patient does not report any today. She appears to be alert and oriented in all spheres today. Mental Status Exam: General Appearance: Patient appears to be stated age is alert, directable, and cooperative. Patient is an obese body habitus. Fair hygiene and grooming. Dressed in a hospital gown. Behavior: Patient is calmly sitting upright in her chair without any agitated behavior. Eye contact is fair. Speech: Patient's speech is nonspontaneous, low in volume, monotone. Mood/Affect: Patient reports her mood is "Better, I guess" Affect is blunted But improving in range. Suicidality/Homicidality: Patient reports no SI or HI. Perceptions: The patient is not endorsing any auditory or visual hallucinations today. Though content/process: No delusional thought content is endorsed. Thought process appears to be linear and logical today. Memory and concentration: Grossly intact for the purposes of this session. Judgment and insight: Poor. Vital Signs Temp 97.1 F L 10/27/20 07:10 Pulse 83 10/27/20 07:10 Resp 18 10/27/20 07:10 BP 116/77 10/27/20 07:10 Pulse Ox 94 L 10/25/20 10:04 Assessment Bipolar disorder, type I, depressed episode Plan: -Patient continues to meet criteria for inpatient psychiatric admission for symptom stabilization and safety. The patient has been petitioned and certified. The patient is court-ordered for treatment. -Medications: Continue Clozaril 275 mg at bedtime for psychosis. Awaiting clozaril level. Increase Topamax to 50 mg twice a day to augment antipsychotic. Continue Cymbalta 30 mg by mouth in the morning and 60 mg at bedtime for depression. -When necessary Ativan and Haldol for agitation/aggression. -SW on board for discharge planning. Encouraged the patient to participate in milieu.
[2020-10-27 13:04] LABS: Clozapine (Clozaril) 586 ng/mL (200-700); Norclozapine 515 ng/mL (200-700)
[2020-10-27] MEDS: cloZAPine 100 MG TAB PO SCH (20:21)
[2020-10-27] MEDS: cloZAPine 25 MG TAB PO SCH (20:21)
[2020-10-27] MEDS: TOPIRAMATE 25 MG TAB PO SCH (20:22)
[2020-10-27] MEDS: DULoxetine HCL 60 MG CAPSULE.DR PO SCH (20:22)
[2020-10-27] MEDS ORDERED: cloZAPine 100 MG TAB PO SCH (21:00)
[2020-10-28] MEDS: LEVOTHYROXINE 88 MCG TAB PO SCH (05:45)
[2020-10-28] MEDS: TOPIRAMATE 25 MG TAB PO SCH (09:38)
[2020-10-28] MEDS: ASPIRIN 81 MG PO SCH (09:38)
[2020-10-28] MEDS: MELOXICAM 7.5 MG TAB PO SCH (09:39)
[2020-10-28] MEDS: metFORMIN 500 MG TAB PO SCH (09:39)
[2020-10-28] MEDS: FENOFIBRATE 160 MG TAB PO SCH (09:39)
[2020-10-28] MEDS: ISOSORBIDE MONONITRATE ER 30 MG TAB.ER.24H PO SCH (09:39)
[2020-10-28] MEDS: DULoxetine HCL 30 MG CAPSULE.DR PO SCH (09:39)
[2020-10-28] MEDS: APIXABAN 5 MG TAB PO SCH (09:39)
[2020-10-28] MEDS: NON FORMULARY DRUG (Omega-3 Acid Ethyl Esters [Lovaza] 1 GM Capsule) PO SCH (09:40)
[2020-10-28 10:27] VITALS: BP 121/59; PULSE 93
== END 2020-10-28 15:08 | disposition home health service (06) | DRG 885 ==
LOC: EC 12:36 → 3MHU 16:57
PROVIDERS: ADMIT Psychiatry & Neurology Psychiatry; ATTEND Psychiatry & Neurology Psychiatry
DX: F31.30 Bipolar disorder, current episode depressed, mild or moderate severity, unspecified (principal); I82.403 Acute embolism and thrombosis of unspecified deep veins of lower extremity, bilateral; R45.851 Suicidal ideations; F31.60 Bipolar disorder, current episode mixed, unspecified; F25.0 Schizoaffective disorder, bipolar type; F20.2 Catatonic schizophrenia; E03.9 Hypothyroidism, unspecified; E11.9 Type 2 diabetes mellitus without complications; E78.5 Hyperlipidemia, unspecified; E86.0 Dehydration; I10 Essential (primary) hypertension; R45.850 Homicidal ideations; Z79.1 Long term (current) use of non-steroidal anti-inflammatories (NSAID); Z79.82 Long term (current) use of aspirin; Z79.84 Long term (current) use of oral hypoglycemic drugs; Z79.890 Hormone replacement therapy; Z79.899 Other long term (current) drug therapy; Z91.14 Patient's other noncompliance with medication regimen; Z20.822 Contact with and (suspected) exposure to COVID-19
CPT/HCPCS: 80048; 80053; 80061; 80159; 80306; 81001; 81003; 82075; 83036; 83735; 85025; 85027; 85379; 87635; 93970; 99285

== ENCOUNTER 2020-11-10 | Inpatient (IN) | payer MEDICARE | END 2020-11-23 14:18 | disposition home or self-care (01) | DRG 885 | PROVIDERS: ADMIT Hospitalist | CPT/HCPCS: 36415; 76770; 80048; 80053; 80159; 81003; 82075; 85025; 87635; 99285 ==

== ENCOUNTER 2021-03-14 12:56 | Inpatient (IN) | payer MEDICARE, OTHER ==
--- NOTE | 2021-03-14 13:05 | ED ---
Altered Mental Status HPI - General Stated Complaint: altered Time Seen by Provider: 03/14/21 13:03 - History of Present Illness Initial Comments: Patient presents with altered mental status. She recently had her psych medication adjusted and increased. Patient doesn't provide further information on what is going on. According to EMS she has had increased lethargy for couple days. No what is currently in attendance to provide any further details. - Related Data Home Medications Medication Instructions Recorded Confirmed Bishop-3 Acid Ethyl Esters [Lovaza] 2 gm PO BID@0900,1800 10/09/20 03/14/21 Cholecalciferol [Vitamin D3 (25 50 mcg PO DAILY 10/10/20 03/14/21 Mcg = 1000 Iu)] Acetaminophen Tab [Tylenol] 650 mg PO Q6H PRN 03/14/21 03/14/21 Apixaban [Eliquis] 5 mg PO BID 03/14/21 03/14/21 Atorvastatin Calcium [Lipitor] 40 mg PO HS 03/14/21 03/14/21 Desvenlafaxine [Pristiq ER] 100 mg PO DAILY 03/14/21 03/14/21 Fenofibrate,Micronized 134 mg PO AC-SUPPER 03/14/21 03/14/21 [Fenofibrate] LORazepam [Ativan] 1 mg PO QID PRN 03/14/21 03/14/21 Levothyroxine Sodium [Synthroid] 88 mcg PO DAILY 03/14/21 03/14/21 cloZAPine [Clozaril] 25 mg PO BID@0900,1800 03/14/21 03/14/21 cloZAPine [Clozaril] 300 mg PO HS 03/14/21 03/14/21 haloperidoL [Haldol] 5 mg PO BID 03/14/21 03/14/21 metFORMIN HCL ER [Glucophage XR] 1,000 mg PO AC-SUPPER 03/14/21 03/14/21 polyethylene glycoL 3350 [Miralax] 17 gm PO DAILY PRN 03/14/21 03/14/21 Previous Rx's Medication Instructions Recorded Isosorbide Mononitrate ER [Imdur] 30 mg PO DAILY 30 Days tab.er.24h 10/21/20 Allergies Allergy/AdvReac Type Severity Reaction Status Date / Time cefuroxime axetil Allergy Rash/Hives Verified 03/14/21 15:39 [From Ceftin] Penicillins Allergy Rash/Hives Verified 03/14/21 15:39 thioridazine AdvReac muscle Verified 03/14/21 15:39 stiffness Review of Systems ROS Statement: Those systems with pertinent positive or pertinent negative responses have been documented in the HPI. ROS Other: All systems not noted in ROS Statement are negative. Past Medical History Past Medical History: Diabetes Mellitus, Hypertension, Thyroid Disorder Additional Past Medical History / Comment(s): hx obtained from . Pt unable to answer History of Any Multi-Drug Resistant Organisms: None Reported Past Surgical History: Appendectomy, Cholecystectomy, Tubal Ligation Additional Past Surgical History / Comment(s): tubal 03/2003 Past Anesthesia/Blood Transfusion Reactions: No Reported Reaction Past Psychological History: Bipolar, Depression Additional Psychological History / Comment(s): inpt history [facility] 6years ago, [facility] 2 wks ago. Smoking Status: Former smoker Past Alcohol Use History: Heavy Additional Past Alcohol Use History / Comment(s): Pt denied current or recent use but was unable to state how long since last use. Past Drug Use History: Marijuana Additional Drug Use History / Comment(s): Pt stated she abused caffeine pills at some point after stopping alcohol use. - Past Family History Mother Family Medical History: Cancer Father Family Medical History: Myocardial Infarction (DE) General Exam Limitations: altered mental status Head exam: Present: atraumatic Eye exam: Present: normal appearance ENT exam: Present: normal exam Neck exam: Present: normal inspection Respiratory exam: Present: normal lung sounds bilaterally. Absent: respiratory distress Cardiovascular Exam: Present: regular rate, normal rhythm GI/Abdominal exam: Present: soft. Absent: distended, tenderness Extremities exam: Present: full ROM. Absent: tenderness Back exam: Present: normal inspection Neurological exam: Present: altered Psychiatric exam: Absent: agitated Skin exam: Present: warm, dry Course Vital Signs 03/14/21 13:28 Temperature 99.1 F Pulse Rate 94 Respiratory 16 Rate Blood Pressure 142/89 O2 Sat by Pulse 97 Oximetry Medical Decision Making - Medical Decision Making Patient has a UTI. Her symptoms could also be related to her alteration in her psych meds. I will have psychiatry consult at. Patient will be admitted to the hospital. - Lab Data Result diagrams: 03/14/21 14:06 03/14/21 14:06 Lab Results 03/14/21 03/14/21 03/14/21 Range/Units 14:03 14:06 14:06 WBC 7.4 (3.8-10.6) k/uL RBC 4.60 (3.80-5.40) m/uL Hgb 13.3 (11.4-16.0) gm/dL Hct 41.4 (34.0-46.0) % MCV 89.9 (80.0-100.0) fL MCH 28.9 (25.0-35.0) pg MCHC 32.1 (31.0-37.0) g/dL RDW 13.2 (11.5-15.5) % Plt Count 276 (150-450) k/uL MPV 8.1 Neutrophils % 75 % Lymphocytes % 16 % Monocytes % 7 % Eosinophils % 0 % Basophils % 0 % Neutrophils # 5.6 (1.3-7.7) k/uL Lymphocytes # 1.2 (1.0-4.8) k/uL Monocytes # 0.6 (0-1.0) k/uL Eosinophils # 0.0 (0-0.7) k/uL Basophils # 0.0 (0-0.2) k/uL PT 10.9 (9.0-12.0) sec INR 1.0 (<1.2) APTT 24.0 (22.0-30.0) sec Sodium (137-145) mmol/L Potassium (3.5-5.1) mmol/L Chloride (98-107) mmol/L Carbon Dioxide (22-30) mmol/L Anion Gap mmol/L BUN (7-17) mg/dL Creatinine (0.52-1.04) mg/dL Est GFR (CKD-EPI)AfAm (>60 ml/min/1.73 sqM) Est GFR (CKD-EPI)NonAf (>60 ml/min/1.73 sqM) Glucose (74-99) mg/dL POC Glucose (mg/dL) 111 H (75-99) mg/dL POC Glu Heel Attacher ID Tara, Natalee Calcium (8.4-10.2) mg/dL Total Bilirubin (0.2-1.3) mg/dL AST (14-36) U/L ALT (4-34) U/L Alkaline Phosphatase (38-126) U/L Ammonia (<30) umol/L Troponin I (0.000-0.034) ng/mL Total Protein (6.3-8.2) g/dL Albumin (3.5-5.0) g/dL Urine Color Urine Appearance (Clear) Urine pH (5.0-8.0) Ur Specific [place] (1.001-1.035) Urine Protein (Negative) Urine Glucose (UA) (Negative) Urine Ketones (Negative) Urine Blood (Negative) Urine Nitrite (Negative) Urine Bilirubin (Negative) Urine Urobilinogen (<2.0) mg/dL Ur Leukocyte Esterase (Negative) Urine RBC (0-5) /hpf Urine WBC (0-5) /hpf Ur Squamous Epith Cells (0-4) /hpf Urine Bacteria (None) /hpf Urine Mucus (None) /hpf Urine Yeast (Budding) (None) /hpf Urine Opiates Screen (NotDetected) Ur Oxycodone Screen (NotDetected) Urine Methadone Screen (NotDetected) Ur Propoxyphene Screen (NotDetected) Ur Barbiturates Screen (NotDetected) U Tricyclic Antidepress (NotDetected) Ur Phencyclidine Scrn (NotDetected) Ur Amphetamines Screen (NotDetected) U Methamphetamines Scrn (NotDetected) U Benzodiazepines Scrn (NotDetected) Urine Cocaine Screen (NotDetected) U Marijuana (THC) Screen (NotDetected) 03/14/21 03/14/21 03/14/21 Range/Units 14:06 14:06 14:06 WBC (3.8-10.6) k/uL RBC (3.80-5.40) m/uL Hgb (11.4-16.0) gm/dL Hct (34.0-46.0) % MCV (80.0-100.0) fL MCH (25.0-35.0) pg MCHC (31.0-37.0) g/dL RDW (11.5-15.5) % Plt Count (150-450) k/uL MPV Neutrophils % % Lymphocytes % % Monocytes % % Eosinophils % % Basophils % % Neutrophils # (1.3-7.7) k/uL Lymphocytes # (1.0-4.8) k/uL Monocytes # (0-1.0) k/uL Eosinophils # (0-0.7) k/uL Basophils # (0-0.2) k/uL PT (9.0-12.0) sec INR (<1.2) APTT (22.0-30.0) sec Sodium 149 H (137-145) mmol/L Potassium 4.4 (3.5-5.1) mmol/L Chloride 112 H (98-107) mmol/L Carbon Dioxide 27 (22-30) mmol/L Anion Gap 10 mmol/L BUN 25 H (7-17) mg/dL Creatinine 1.37 H (0.52-1.04) mg/dL Est GFR (CKD-EPI)AfAm 51 (>60 ml/min/1.73 sqM) Est GFR (CKD-EPI)NonAf 45 (>60 ml/min/1.73 sqM) Glucose 122 H (74-99) mg/dL POC Glucose (mg/dL) (75-99) mg/dL POC Glu Heel Attacher ID Calcium 11.1 H (8.4-10.2) mg/dL Total Bilirubin 0.7 (0.2-1.3) mg/dL AST 120 H (14-36) U/L ALT 52 H (4-34) U/L Alkaline Phosphatase 70 (38-126) U/L Ammonia (<30) umol/L Troponin I (0.000-0.034) ng/mL Total Protein 7.9 (6.3-8.2) g/dL Albumin 4.9 (3.5-5.0) g/dL Urine Color Yellow Urine Appearance Cloudy H (Clear) Urine pH 5.5 (5.0-8.0) Ur Specific [place] 1.013 (1.001-1.035) Urine Protein Negative (Negative) Urine Glucose (UA) Negative (Negative) Urine Ketones Negative (Negative) Urine Blood Negative (Negative) Urine Nitrite Positive H (Negative) Urine Bilirubin Negative (Negative) Urine Urobilinogen <2.0 (<2.0) mg/dL Ur Leukocyte Esterase Moderate H (Negative) Urine RBC 2 (0-5) /hpf Urine WBC 32 H (0-5) /hpf Ur Squamous Epith Cells 10 H (0-4) /hpf Urine Bacteria Many H (None) /hpf Urine Mucus Rare H (None) /hpf Urine Yeast (Budding) Occasional H (None) /hpf Urine Opiates Screen Not Detected (NotDetected) Ur Oxycodone Screen Not Detected (NotDetected) Urine Methadone Screen Not Detected (NotDetected) Ur Propoxyphene Screen Not Detected (NotDetected) Ur Barbiturates Screen Not Detected (NotDetected) U Tricyclic Antidepress Not Detected (NotDetected) Ur Phencyclidine Scrn Not Detected (NotDetected) Ur Amphetamines Screen Not Detected (NotDetected) U Methamphetamines Scrn Not Detected (NotDetected) U Benzodiazepines Scrn Detected H (NotDetected) Urine Cocaine Screen Not Detected (NotDetected) U Marijuana (THC) Screen Not Detected (NotDetected) 03/14/21 03/14/21 Range/Units 14:06 14:06 WBC (3.8-10.6) k/uL RBC (3.80-5.40) m/uL Hgb (11.4-16.0) gm/dL Hct (34.0-46.0) % MCV (80.0-100.0) fL MCH (25.0-35.0) pg MCHC (31.0-37.0) g/dL RDW (11.5-15.5) % Plt Count (150-450) k/uL MPV Neutrophils % % Lymphocytes % % Monocytes % % Eosinophils % % Basophils % % Neutrophils # (1.3-7.7) k/uL Lymphocytes # (1.0-4.8) k/uL Monocytes # (0-1.0) k/uL Eosinophils # (0-0.7) k/uL Basophils # (0-0.2) k/uL PT (9.0-12.0) sec INR (<1.2) APTT (22.0-30.0) sec Sodium (137-145) mmol/L Potassium (3.5-5.1) mmol/L Chloride (98-107) mmol/L Carbon Dioxide (22-30) mmol/L Anion Gap mmol/L BUN (7-17) mg/dL Creatinine (0.52-1.04) mg/dL Est GFR (CKD-EPI)AfAm (>60 ml/min/1.73 sqM) Est GFR (CKD-EPI)NonAf (>60 ml/min/1.73 sqM) Glucose (74-99) mg/dL POC Glucose (mg/dL) (75-99) mg/dL POC Glu Heel Attacher ID Calcium (8.4-10.2) mg/dL Total Bilirubin (0.2-1.3) mg/dL AST (14-36) U/L ALT (4-34) U/L Alkaline Phosphatase (38-126) U/L Ammonia <9 (<30) umol/L Troponin I <0.012 (0.000-0.034) ng/mL Total Protein (6.3-8.2) g/dL Albumin (3.5-5.0) g/dL Urine Color Urine Appearance (Clear) Urine pH (5.0-8.0) Ur Specific [place] (1.001-1.035) Urine Protein (Negative) Urine Glucose (UA) (Negative) Urine Ketones (Negative) Urine Blood (Negative) Urine Nitrite (Negative) Urine Bilirubin (Negative) Urine Urobilinogen (<2.0) mg/dL Ur Leukocyte Esterase (Negative) Urine RBC (0-5) /hpf Urine WBC (0-5) /hpf Ur Squamous Epith Cells (0-4) /hpf Urine Bacteria (None) /hpf Urine Mucus (None) /hpf Urine Yeast (Budding) (None) /hpf Urine Opiates Screen (NotDetected) Ur Oxycodone Screen (NotDetected) Urine Methadone Screen (NotDetected) Ur Propoxyphene Screen (NotDetected) Ur Barbiturates Screen (NotDetected) U Tricyclic Antidepress (NotDetected) Ur Phencyclidine Scrn (NotDetected) Ur Amphetamines Screen (NotDetected) U Methamphetamines Scrn (NotDetected) U Benzodiazepines Scrn (NotDetected) Urine Cocaine Screen (NotDetected) U Marijuana (THC) Screen (NotDetected) 03/14/21 17:24 Twelve-lead EKG shows ventricular rate 92 bpm, normal VA interval, normal QRS complexes, no ST elevation or depression, interpreted by me as normal sinus rh ythm. Disposition Clinical Impression: Altered mental status, UTI (urinary tract infection) Disposition: ADMITTED IP TO THIS HOSP Condition: Fair Is patient prescribed a controlled substance at d/c from ED?: No Referrals: Giuseppe Saenz MD [Primary Care Provider] - 1-2 days
[2021-03-14 14:04] LABS: Glucose,Whole Blood 111 mg/dL (75-99)
[2021-03-14 14:19] LABS: Basophils % (A) 0 %; Eosinophils % (A) 0 %; HCT 41.4 % (34.0-46.0); HGB 13.3 gm/dL (11.4-16.0); Lymphocytes # (A) 1.2 k/uL (1.0-4.8); Lymphocytes % (A) 16 %; MCH 28.9 pg (25.0-35.0); MCHC 32.1 g/dL (31.0-37.0); MCV 89.9 fL (80.0-100.0); Mean Platelet Volume 8.1; Monocytes # (A) 0.6 k/uL (0-1.0); Monocytes % (A) 7 %; Neutrophils # (A) 5.6 k/uL (1.3-7.7); Neutrophils % (A) 75 %; Platelet Count 276 k/uL (150-450); RDW 13.2 % (11.5-15.5); WBC 7.4 k/uL (3.8-10.6)
[2021-03-14 14:30] LABS: Albumin 4.9 g/dL (3.5-5.0); Calcium 11.1 mg/dL (8.4-10.2); Potassium 4.4 mmol/L (3.5-5.1); Total Bilirubin 0.7 mg/dL (0.2-1.3); Total Protein 7.9 g/dL (6.3-8.2)
[2021-03-14 14:33] LABS: Prothrombin Time 10.9 sec (9.0-12.0)
--- NOTE | 2021-03-14 14:42 | XR ---
EXAMINATION TYPE: XR chest 1V portable DATE OF EXAM: 03/14/2021 COMPARISON: Chest x-ray 10/14/2013 HISTORY: Altered mental status TECHNIQUE: frontal view of the chest is obtained on 2 images. FINDINGS: The heart is enlarged. Patchy subsegmental basilar atelectatic changes are suspected, the exam is expiratory and rotated. There are overlying leads. Evident pneumothorax or pleural effusion. IMPRESSION: Expiratory rotated exam. Cardiomegaly, probable basilar atelectasis.
--- NOTE | 2021-03-14 15:53 | CT ---
EXAMINATION TYPE: CT brain wo con DATE OF EXAM: 03/14/2021 COMPARISON: CT brain 10/18/2013 HISTORY: Patient poor historian. 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 CT DLP: 2221.4 mGycm Automated exposure control for dose reduction was used., spiral imaging of the brain FINDINGS: No interval change. No hemorrhage or hydrocephalus is suspected, high attenuation along the inferior margin of the right frontal lobes is thought likely to be due to artifact. Brain appears stable, cavu m septum pellucidum is noted and is stable. IMPRESSION: NO ACUTE ABNORMALITY.
[2021-03-14 17:02] LABS: Appearance,Urine Cloudy (Clear); Bacteria,Urine Many /hpf; Bilirubin,Urine Negative (Negative); Blood,Urine Negative (Negative); Budding Yeast,Urine Occasional /hpf; Color,Urine Yellow; Glucose,Urine (UA) Negative (Negative); Ketones,Urine Negative (Negative); Leukocyte Esterase,Urine Moderate (Negative); Mucus,Urine Rare /hpf; Nitrite,Urine Positive (Negative); PH, Urine 5.5 (5.0-8.0); Protein,Urine Negative (Negative); RBC,Urine 2 /hpf (0-5); Specific Gravity,Urine 1.013 (1.001-1.035); Squamous Epithelial Cell,Urine 10 /hpf (0-4); Urobilinogen,Urine <2.0 mg/dL (<2.0); WBC,Urine 32 /hpf (0-5)
[2021-03-14 17:12] LABS: Amphetamine Screen,Urine Not Detected (NotDetected); Barbiturate Screen,Urine Not Detected (NotDetected); Benzodiazepines Screen,Urine Detected (NotDetected); Cocaine Screen,Urine Not Detected (NotDetected); Methadone Screen, Urine Not Detected (NotDetected); Opiate Screen,Urine Not Detected (NotDetected); Oxycodone Screen, Urine Not Detected (NotDetected); Phencyclidine Screen,Urine Not Detected (NotDetected); Tricyclic Antidepressant,Urine Not Detected (NotDetected); Urn Cannabinoid Scrn Not Detected (NotDetected)
[2021-03-14] MEDS ORDERED: LEVOFLOXACIN 750MG-D5W PMX 750 MG in DEXTROSE/WATER 1 150ML.BAG IVPB STA (17:14)
[2021-03-14] MEDS ORDERED: NALOXONE 0.4 MG/ML 1 ML VIAL IV PRN (17:25)
[2021-03-14] MEDS ORDERED: polyethylene glycoL 3350 17 GM POWD.PACK PO PRN (17:27)
[2021-03-14 19:18] LABS: Glucose,Whole Blood 111 mg/dL (75-99)
[2021-03-14] MEDS ORDERED: LORazepam 1 MG TAB PO PRN (20:58)
--- NOTE | 2021-03-14 21:09 | P.HPIM ---
History of Present Illness H&P Date: 03/14/21 Chief Complaint: Decreased responsiveness History of presenting complaint: This is a 50-year-old patient, who follows with Dr. Saenz . Patient has a known history of bipolar disorder and schizophrenia. Psychosis and catatonic like syndrome patient for 1 days has become rather lethargic. Not communicating. Not feeding herself. Not talking. Prior to that she was talk ing and getting about. History was given by the to the ER nurse earlier. When I came to see the patient she is awake but looking straight. Not answering any questions. My smile a little bit. No fever or chills reported. No cough reported. Review of systems: Cannot be obtained as patient is not cavity communicating Past medical history to include: Hypertension, hypothyroid, bipolar disorder, schizophrenia. Did have excessive alcohol use in the past. No smoking. Psychosis, catatonic-like syndrome Social history: Heavy alcohol use in the past. . No smoking. Family history: Patient cannot tell Physical examination: VITAL SIGNS: 98.3, 91, 18, 140/94, 98% room air GENERAL: BMI 29.8, laying in bed, awake appears distant. EYES: Pupils equal. Conjunctiva normal. HEENT: External appearance of nose and ears normal, oral cavity dry mucous membranes NECK: JVD unable to assess; masses not palpable. HEART: First and second heart sounds are normal; no edema. LUNGS: Respiratory rate normal; clear to auscultation. ABDOMEN: Soft, nontender, liver spleen not palpable, no masses palpable. PSYCH: Patient not answering questions NEUROLOGICAL: [Cranial nerves grossly intact; no facial asymmetry, limbs extended. LYMPHATICS: No lymph nodes palpable in the axilla and neck INVESTIGATIONS, reviewed in the clinical context: WBC 7.4 hemoglobin 13.3 platelets 276 sodium 149 potassium 4.4 BUN 25 creatinine 1.37 AST 120 ALT 52 UA positive for leukoesterase, WBC 6, 70 EKG tracing personally reviewed by me-normal sinus rhythm. 92 Urine drug screen positive for benzodiazepine COVID 19 [PCR]: Not detected Chest x-ray film personally reviewed by me-portable. Increased heart size. No obvious infiltrates Assessment and plan: -hypernatremia, from free water deficit: D5.45. at 150 mL an hour. -Possible UTI with cystitis IV ceftriaxone -Schizoaffective disorder, bipolar type. Catatonic-like symptoms. Acute flareup Consult psychiatry. -Bipolar disorder -Acute kidney injury, possibly prerenal IV fluids. Follow function -Diabetes mellitus type 2, on oral hypoglycemic Currently hold oral hypoglycemic. Follow Accu-Cheks -Hypothyroid 88 g Synthroid -Hyperlipidemia The was a 2 g by mouth twice a day TriCor 134 mg before supper -Chronic DVT both lower extremity diagnosed on October 19 2020 Eliquis IV fluids at 1 50 mL an hour. Resume home medications. Follow Accu-Cheks. Hold Glucophage. Consult psychiatry. Given the complexity and severity of patient's condition expect the patient to be in the hospital at least for 2 overnights Past Medical History Past Medical History: Diabetes Mellitus, Hypertension, Thyroid Disorder Additional Past Medical History / Comment(s): hx obtained from . Pt unable to answer History of Any Multi-Drug Resistant Organisms: None Reported Past Surgical History: Appendectomy, Cholecystectomy, Tubal Ligation Additional Past Surgical History / Comment(s): tubal 03/2003 Past Anesthesia/Blood Transfusion Reactions: No Reported Reaction Past Psychological History: Bipolar, Depression Additional Psychological History / Comment(s): [facility] history [facility] 6years ago, [facility]. Smoking Status: Former smoker Past Alcohol Use History: Heavy Additional Past Alcohol Use History / Comment(s): Pt denied current or recent use but was unable to state how long since last use. Past Drug Use History: Marijuana Additional Drug Use History / Comment(s): Pt stated she abused caffeine pills at some point after stopping alcohol use. - Past Family History Mother Family Medical History: Cancer Father Family Medical History: Myocardial Infarction (NH) Medications and Allergies Home Medications Medication Instructions Recorded Confirmed Type [place]-3 Acid Ethyl Esters [Lovaza] 2 gm PO BID@0900,1800 10/09/20 03/14/21 History Cholecalciferol [Vitamin D3 (25 50 mcg PO DAILY 10/10/20 03/14/21 History Mcg = 1000 Iu)] Isosorbide Mononitrate ER [Imdur] 30 mg PO DAILY 30 Days tab.er.24h 10/21/20 1 Rx Acetaminophen Tab [Tylenol] 650 mg PO Q6H PRN 03/14/21 03/14/21 History Apixaban [Eliquis] 5 mg PO BID 03/14/21 03/14/21 History Atorvastatin Calcium [Lipitor] 40 mg PO HS 03/14/21 03/14/21 History Desvenlafaxine [Pristiq ER] 100 mg PO DAILY 03/14/21 03/14/21 History Fenofibrate,Micronized 134 mg PO AC-SUPPER 03/14/21 03/14/21 History [Fenofibrate] LORazepam [Ativan] 1 mg PO QID PRN 03/14/21 03/14/21 History Levothyroxine Sodium [Synthroid] 88 mcg PO DAILY 03/14/21 03/14/21 History cloZAPine [Clozaril] 25 mg PO BID@0900,1800 03/14/21 03/14/21 History cloZAPine [Clozaril] 300 mg PO HS 03/14/21 03/14/21 History haloperidoL [Haldol] 5 mg PO BID 03/14/21 03/14/21 History metFORMIN HCL ER [Glucophage XR] 1,000 mg PO AC-SUPPER 03/14/21 03/14/21 History polyethylene glycoL 3350 [Miralax] 17 gm PO DAILY PRN 03/14/21 03/14/21 History Allergies Allergy/AdvReac Type Severity Reaction Status Date / Time cefuroxime axetil Allergy Rash/Hives Verified 03/14/21 15:39 [From Ceftin] Penicillins Allergy Rash/Hives Verified 03/14/21 15:39 thioridazine AdvReac muscle Verified 03/14/21 15:39 stiffness Physical Exam Vitals: Vital Signs Temp Pulse Resp BP Pulse Ox 03/14/21 19:02 98.3 F 91 18 144/94 98 03/14/21 13:28 99.1 F 94 16 142/89 97 Intake and Output 03/14/21 03/14/21 03/14/21 06:59 14:59 22:59 Other: Weight 86.183 kg Results CBC & Chem 7: 03/14/21 14:06 03/14/21 14:06 Labs: Abnormal Lab Results - Last 24 Hours (Table) 03/14/21 03/14/21 03/14/21 Range/Units 14:03 14:06 14:06 Sodium (137-145) mmol/L Chloride (98-107) mmol/L BUN (7-17) mg/dL Creatinine (0.52-1.04) mg/dL Glucose (74-99) mg/dL POC Glucose (mg/dL) 111 H (75-99) mg/dL Calcium (8.4-10.2) mg/dL AST (14-36) U/L ALT (4-34) U/L Urine Appearance Cloudy H (Clear) Urine Nitrite Positive H (Negative) Ur Leukocyte Esterase Moderate H (Negative) Urine WBC 32 H (0-5) /hpf Ur Squamous Epith Cells 10 H (0-4) /hpf Urine Bacteria Many H (None) /hpf Urine Mucus Rare H (None) /hpf Urine Yeast (Budding) Occasional H (None) /hpf U Benzodiazepines Scrn Detected H (NotDetected) 03/14/21 03/14/21 Range/Units 14:06 19:17 Sodium 149 H (137-145) mmol/L Chloride 112 H (98-107) mmol/L BUN 25 H (7-17) mg/dL Creatinine 1.37 H (0.52-1.04) mg/dL Glucose 122 H (74-99) mg/dL POC Glucose (mg/dL) 111 H (75-99) mg/dL Calcium 11.1 H (8.4-10.2) mg/dL AST 120 H (14-36) U/L ALT 52 H (4-34) U/L Urine Appearance (Clear) Urine Nitrite (Negative) Ur Leukocyte Esterase (Negative) Urine WBC (0-5) /hpf Ur Squamous Epith Cells (0-4) /hpf Urine Bacteria (None) /hpf Urine Mucus (None) /hpf Urine Yeast (Budding) (None) /hpf U Benzodiazepines Scrn (NotDetected)
[2021-03-14] MEDS: metFORMIN 500 MG TAB PO SCH (23:20)
[2021-03-14] MEDS: DEXTROSE 5%-0.45% NACL 1,000 ML IV SCH (23:21)
[2021-03-14] MEDS: ATORVASTATIN 40 MG TAB PO SCH (23:21)
[2021-03-14] MEDS: APIXABAN 5 MG TAB PO SCH (23:21)
[2021-03-14] MEDS: haloperidoL 5 MG TAB PO SCH (23:21)
[2021-03-14] MEDS: cloZAPine 25 MG TAB PO SCH (23:25)
[2021-03-14] MEDS: cloZAPine 100 MG TAB PO SCH (23:52)
[2021-03-15 05:41] LABS: African American GFR (CKD) 65 (>60 ml/min/1.73 sqM); Anion Gap 10 mmol/L; Blood Urea Nitrogen 23 mg/dL (7-17); Calcium 10.7 mg/dL (8.4-10.2); Carbon Dioxide 24 mmol/L (22-30); Chloride 114 mmol/L (98-107); Glucose 128 mg/dL (74-99); Non-African American GFR(CKD) 57 (>60 ml/min/1.73 sqM); Potassium 3.7 mmol/L (3.5-5.1); Sodium 148 mmol/L (137-145)
[2021-03-15] MEDS: DEXTROSE 5%-0.45% NACL 1,000 ML IV SCH ×2 (06:11→12:30)
[2021-03-15] MEDS ORDERED: LEVOTHYROXINE 88 MCG TAB PO SCH (06:30)
[2021-03-15 07:52] LABS: Glucose,Whole Blood 167 mg/dL (75-99)
[2021-03-15] MEDS: DESVENLAFAXINE 100 MG PO SCH (08:20)
[2021-03-15] MEDS: CHOLECALCIFEROL 25 MCG (1000 IU) TABLET PO SCH ×2 (08:21→08:25)
[2021-03-15] MEDS: APIXABAN 5 MG TAB PO SCH ×2 (08:21→08:24)
[2021-03-15] MEDS: ISOSORBIDE MONONITRATE ER 30 MG TAB.ER.24H PO SCH ×2 (08:21→08:25)
[2021-03-15] MEDS: haloperidoL 5 MG TAB PO SCH ×4 (09:08→21:26)
[2021-03-15] MEDS: cloZAPine 25 MG TAB PO SCH ×3 (09:08→09:13)
[2021-03-15 11:12] LABS: Glucose,Whole Blood 118 mg/dL (75-99)
[2021-03-15] MEDS ORDERED: LORazepam 2 MG/ML INJ IV STA (12:50)
[2021-03-15] MEDS ORDERED: SODIUM CHLORIDE 0.9% IVPB STA (12:58)
[2021-03-15] MEDS ORDERED: VALPROATE SODIUM IVPB STA (12:58)
--- NOTE | 2021-03-15 13:08 | P.CN ---
Psychiatric Consult - . Consult date: 03/15/21 Consult:: 03/15/21 13:07 IDENTIFYING DATA: This patient is a , unemployed, 50-year-old female with a significant history of treatment resistant schizophrenia who presented to the emergency department for altered mental status and decreased responsiveness. HISTORY OF PRESENT ILLNESS: The patient presented to the hospital on 03/14/21, brought in by EMS for increased lethargy for the past few days. As per chart review, the patient recently had her psychiatric medication adjusted and increased. It is uncertain at this time but those changes are. On evaluation this provider in her room in the emergency department, the patient was initially responsive and was able to apply that she was not expressing any auditory hallucinations. During the interview, however, the patient began seizing, foaming at the mouth, and mucus coming out of her nose, with tonic and clonic muscle contractions. The event lasted approximately 30 seconds before ceasing. Afterwards, the patient continued to be altered and was less responsive. The patient was previously admitted to this hospital in October 2020 with a similar complaint. The patient was managed with Ativan for catatonia and displayed significant improvement. She was subsequently discharged from the hospital and returned home with her . The patient is a poor historian of events at this time. This provider contacted the patient's Art [address] who reports that the patient was initially doing well until the past few days. He states she was bright, laughing, and able to engage in conversations. He does report that she has had a recent medication adjustment but is unable to recall which medications were adjusted. PAST PSYCHIATRIC HISTORY: Patient has a significant history of bipolar disorder. She has had multiple trials of medications including Abilify, Effexor, Tegretol, and trazodone. She has been prescribed Clozaril. The patient follows up with the ACT team of [facility] in the outpatient setting. She was last discharged from this hospital on 11/20/2020 on a regimen of clozaril 400 mg at bedtime and haldol 10 mg twice daily. She has had numerous inpatient hospitalizations including [facility], [facility], and [facility]. PAST MEDICAL HISTORY: Past Medical History: Diabetes Mellitus, Hypertension, Thyroid Disorder Additional Past Medical History / Comment(s): hx obtained from . Pt unable to answer History of Any Multi-Drug Resistant Organisms: None Reported Past Surgical History: Appendectomy, Cholecystectomy, Tubal Ligation Additional Past Surgical History / Comment(s): tubal 03/2003 Past Anesthesia/Blood Transfusion Reactions: No Reported Reaction Past Psychological History: Bipolar, Depression Additional Psychological History / Comment(s): [facility] 6years ago, [facility]. Smoking Status: Former smoker Past Alcohol Use History: Heavy Additional Past Alcohol Use History / Comment(s): Pt denied current or recent use but was unable to state how long since last use. Past Drug Use History: Marijuana Additional Drug Use History / Comment(s): Pt stated she abused caffeine pills at some point after stopping alcohol use. ALLERGIES: cefuroxime axetil, Penicillins, thioridazine CHEMICAL DEPENDENCY HISTORY: No significant chemical dependency history. FAMILY PSYCHIATRIC/SUBSTANCE USE HISTORY: Unable to obtain. SOCIAL HISTORY: The patient is and her is her guardian. MENTAL STATUS EXAM: General Appearance: Patient appears to be stated age and was initially alert. She did appear malaised and diaphoretic. Patient appears to have poor hygiene and grooming wearing hospital gown with fair eye contact. Behavior: Patient is calmly lying in bed without any agitated behavior. Eye contact was initially appropriate. Patient then had a seizure. Speech: Patient's speech is nonspontaneous. Minimal. Low in volume. Mood/Affect: Patient reports their mood is "okay", affect is flat. Malaised. Suicidality/Homicidality: Denies any suicidal or homicidal ideation. Perceptions: Patient denies any visual hallucinations and denies any auditory hallucinations Though content/process: Unable to fully assess thought content. Thought process is linear. Thought blocknig evident. Memory and concentration: Poor Judgment and insight: Poor IMPRESSIONS: Schizophrenia vs Schizoaffective Disorder Urinary tract infection Acute onset seizure Hypothyroidism Hypernatremia PLAN: -At this time patient DOES NOT meet criteria for inpatient psychiatric admission. Patient has medical conditions that can manifest in decrease function and altered mental status. Patient also had new onset seizure. We will monitor the patient medically and continue to reassess need for inpatient psychiatric hospitalization. Prior to her seizure, the patient did not endorse any psychotic symptoms. -Delirium precautions recommended with patient including - avoiding use of narcotics and [employer] sedatives, limit anticholinergic medications when possible, frequent re-orientation, minimize use of restraints, open window shades during the day and close them at night -Would recommend the following medication changes/additions: Decrease clozaril to 300 mg at bedtime due to acute onset seizure - Clozaril may lower seizure threshold. Continue Haldol 5 mg twice daily for psychosis. Continue Ativan prn for anxiety/agitation -Consult Neurology for new-onset seizure -Will continue to follow along 03/15/21 13:08
--- NOTE | 2021-03-15 13:37 | P.CNNES ---
History of Present Illness Consult date: 03/15/21 Requesting physician: Bhavin Lima Reason for Consult: seizure History of Present Illness: This is a 50-year-old woman with history of diabetes mellitus, hypertension, hypothyroidism, morbid obesity, significant psychiatric history of bipolar him a schizophrenia/Shcizoaffective disorder presented emergency department on 03/14/2021 for increased lethargy and altered mental status for the last few days. History was obtained from the medical record that. Neurology is consulted for seizure. This psychiatrist (Dr. Lima) was evaluated the patient today on 03/15/2021 and the wall he was examined the patient the patient had that a generalized tonic-clonic seizure lasting for 30 seconds according to him. He stated that the patient was foaming around the mouth as well as new concomitant out of the nose and had tonic-clonic jerking of all extremities. Then the patient was postictally confused. According to the patient nurse she's been altered since she presented to hospital but she did not have a seizure until today and she just had one seizure. According to psychiatry team they feel the patient has schizoaffective for any of versus schizoaffective disorder. Patient is on multiple medications and she is on Lipitor 40 mg daily at bedtime, Eliquis 5 mg 1 tablet twice a day, phenol 5 rates, Imdur, Synthroid, clozapine, Haldol 5 minimal tablet twice a day, metformin, Ativan 1 mg one tablet 4 times a day when necessary, Pristiq ER. He had an EEG on 2013 and it's reported that there is no seizure noted but it is reported as abnormal. It's reported as generalized beta activity seen throughout the anterior head region which is a mild nonspecific abnormality and could be related to medication effect or encephalopathy. Also there is intermittent bitemporal slowing seen especially in the left area that may suggest a mild subcortical neuronal dysfunction abnormality in the temporal region and despite temporary slowing with sharp wave activity can be sometimes seen not uncommonly an asymptomatic population however it is not considered normal and this is a patient in particular might raise the potential of cortical and subcortical neuronal dysfunction abnormality that can result potential for seizure disorder. Some other workup in the hospital consisted of: Initial vital signs his blood pressure 142/89, heart rate of 94, respiratory of 16, temperature of 99.1 Fahrenheit oral pulse ox of 97% at room air. Since the patient has been our facility the patient's been afebrile White blood cell is 7.4 thousand. And the rest of the CBC with differential is unremarkable. On presentation the sodium is 148, creatinine is 1.37, serum glucose is 122, calcium is 11.1, AST of 120 and ALT of 52 and ammonia level is less than 9. Most recent creatinine is 1.12 Urinalysis seems to be suggestive of urinary tract infection. Urine tox screen is positive for benzos. Mckeon virus PCR was not detected. EKG of the head is reported as no acute abnormality. I personally reviewed the CT of the head and there is no acute subacute ischemia and there is no parenchymal bleed Review of Systems Review of system is limited because of patient condition but the prone positive and negative as per HPI. Past Medical History Past Medical History: Diabetes Mellitus, Hypertension, Thyroid Disorder Additional Past Medical History / Comment(s): hx obtained from . Pt unable to answer History of Any Multi-Drug Resistant Organisms: None Reported Past Surgical History: Appendectomy, Cholecystectomy, Tubal Ligation Additional Past Surgical History / Comment(s): tubal 03/2003 Past Anesthesia/Blood Transfusion Reactions: No Reported Reaction Past Psychological History: Bipolar, Depression Additional Psychological History / Comment(s): [facility], [facility]. Smoking Status: Former smoker Past Alcohol Use History: Heavy Additional Past Alcohol Use History / Comment(s): Pt denied current or recent use but was unable to state how long since last use. Past Drug Use History: Marijuana Additional Drug Use History / Comment(s): Pt stated she abused caffeine pills at some point after stopping alcohol use. - Past Family History Mother Family Medical History: Cancer Father Family Medical History: Myocardial Infarction ([place]) Medications and Allergies Home Medications Medication Instructions Recorded Confirmed Type [place]-3 Acid Ethyl Esters [Lovaza] 2 gm PO BID@0900,1800 10/09/20 03/14/21 History Cholecalciferol [Vitamin D3 (25 50 mcg PO DAILY 10/10/20 03/14/21 History Mcg = 1000 Iu)] Isosorbide Mononitrate ER [Imdur] 30 mg PO DAILY 30 Days tab.er.24h 10/21/20 03/14/21 Rx Acetaminophen Tab [Tylenol] 650 mg PO Q6H PRN 03/14/21 03/14/21 History Apixaban [Eliquis] 5 mg PO BID 03/14/21 03/14/21 History Atorvastatin Calcium [Lipitor] 40 mg PO HS 03/14/21 03/14/21 History Desvenlafaxine [Pristiq ER] 100 mg PO DAILY 03/14/21 03/14/21 History Fenofibrate,Micronized 134 mg PO AC-SUPPER 03/14/21 03/14/21 History [Fenofibrate] LORazepam [Ativan] 1 mg PO QID PRN 03/14/21 03/14/21 History Levothyroxine Sodium [Synthroid] 88 mcg PO DAILY 03/14/21 03/14/21 History cloZAPine [Clozaril] 25 mg PO BID@0900,1800 03/14/21 03/14/21 History cloZAPine [Clozaril] 300 mg PO HS 03/14/21 03/14/21 History haloperidoL [Haldol] 5 mg PO BID 03/14/21 03/14/21 History metFORMIN HCL ER [Glucophage XR] 1,000 mg PO AC-SUPPER 03/14/21 03/14/21 History polyethylene glycoL 3350 [Miralax] 17 gm PO DAILY PRN 03/14/21 03/14/21 History Allergies Allergy/AdvReac Type Severity Reaction Status Date / Time cefuroxime axetil Allergy Rash/Hives Verified 03/14/21 15:39 [From Ceftin] Penicillins Allergy Rash/Hives Verified 03/14/21 15:39 thioridazine AdvReac muscle Verified 03/14/21 15:39 stiffness Physical Examination - Vital Signs Vital Signs: Vital Signs Temp Pulse Resp BP Pulse Ox 03/15/21 08:00 18 03/15/21 06:13 98.7 F 96 18 135/86 96 03/14/21 23:59 86 18 141/92 96 03/14/21 19:02 98.3 F 91 18 144/94 98 03/14/21 13:28 99.1 F 94 16 142/89 97 GENERAL: The patient is lying in bed and does not seem in acute distress. CHEST: The heart rate is regular rate rhythm. No murmurs to auscultation. LUNG: Clear to auscultation bilaterally no wheezing noted throughout. Not labored breathing. ABDOMEN/GI: Bowel sounds present in all 4 quadrants. No tenderness to palpation throughout. NEUROLOGICAL: Limited because of her condition. Higher mental function: The patient is drowsy but is aweakable at times to verbal stimuli. She is not verbally responsive. She followed few commands (sticking tongue out) and attempting to show thumbs up. Cranial nerves: The pupils are round, equal and reactive to light. Visual welch could not be assessed. Extraocular movement is hard to assess. No facial weakness. Rest of cranial nerves could not be assessed. Motor: Gait is deferred. The strength is would briefly move bilateral upper extremities and upon lifting uppers above gravity she was able to hold them for few seconds. She is wiggling her toes. Has increase tone at knees and ankles. Normal bulk. Cerebellum: Could not assess. Sensation: Could not assess. Reflexes (right/left): Biceps and Patellar are 3+. Otherwise 2+ throughout. Plantars are mute bilaterally. Results - Laboratory Findings CBC and BMP: 03/14/21 14:06 03/15/21 04:58 Abnormal Lab Findings: Abnormal Labs 03/14/21 03/14/21 03/14/21 14:03 14:06 14:06 Sodium Chloride BUN Creatinine Glucose POC Glucose (mg/dL) 111 H Calcium AST ALT Urine Appearance Cloudy H Urine Nitrite Positive H Ur Leukocyte Esterase Moderate H Urine WBC 32 H Ur Squamous Epith Cells 10 H Urine Bacteria Many H Urine Mucus Rare H Urine Yeast (Budding) Occasional H U Benzodiazepines Scrn Detected H 03/14/21 03/14/21 03/15/21 14:06 19:17 04:58 Sodium 149 H 148 H Chloride 112 H 114 H BUN 25 H 23 H Creatinine 1.37 H 1.12 H Glucose 122 H 128 H POC Glucose (mg/dL) 111 H Calcium 11.1 H 10.7 H AST 120 H ALT 52 H Urine Appearance Urine Nitrite Ur Leukocyte Esterase Urine WBC Ur Squamous Epith Cells Urine Bacteria Urine Mucus Urine Yeast (Budding) U Benzodiazepines Scrn 03/15/21 03/15/21 07:50 11:10 Sodium Chloride BUN Creatinine Glucose POC Glucose (mg/dL) 167 H 118 H Calcium AST ALT Urine Appearance Urine Nitrite Ur Leukocyte Esterase Urine WBC Ur Squamous Epith Cells Urine Bacteria Urine Mucus Urine Yeast (Budding) U Benzodiazepines Scrn Assessment and Plan Assessment: Seizure (had GTC seizure-like activity on 03/15/2021 lasting 30 seconds): Her possible underlying UTI lowers threshold for seizure and her electrolyte imbalance (unsure if patient has known history of seizures or not) Also the patient has a component of altered mental status due to metabolic encephalopathy Acute kidney insufficiency and trending down Mild elevated liver function test Hypernatremia Schizoaffective versus schizophrenia with catatonia Diabetes mellitus History of hypothyroidism Morbid obesity Plan: I ordered the 2 mg of Ativan stat. I loaded the patient with Depakote 1250 mg once. I will start the patient on Vimpat 50 mg 1 tablet twice a day and not the maintenance of Depakote because of her elevated liver function test. Urgent EEG is ordered by the primary team is pending Every 4 hours neuro checks Placed on seizure precautions seizure pads Psychiatry team is on board We'll defer the electrolyte imbalance correction as well as urinary tract infection to the primary team. The plan is discussed with the patient's nurse. Thank you for the consultation. I was able to get hold of the patient's (Art) and he stated that patient stated that patient has one seizure about 5-7 years ago ("petit mal") and he is not sure if she followed-up with a neurologist or not and he does not belief she was on any medications. He stated that patient is seeing a neurologist recently (Dr. Devine) since she feels the ground is coming up and the ceiling is coming down and her neurologist is not sure what is exact diagnosis at this time. He said patient is suppose to get EEG with Dr. Devine in coming up month of March. She has a lot of psychiatrict problems and she presented since her blood pressure was elevated, was combative, confused. Breezy Orozco M.D. Neuro-hospitalist Time with Patient: Greater than 30
[2021-03-15 16:27] LABS: Ionized Calcium 5.1 mg/dL (4.5-5.3)
[2021-03-15] MEDS: FENOFIBRATE 160 MG TAB PO SCH ×2 (16:40→16:57)
[2021-03-15] MEDS: metFORMIN 500 MG TAB PO SCH ×2 (16:41→16:57)
[2021-03-15 16:58] LABS: Glucose,Whole Blood 102 mg/dL (75-99)
--- NOTE | 2021-03-15 18:04 | P.PN ---
Progress Note - Text Progress Note Date: 03/15/21 Chief Complaint: Decreased responsiveness History of presenting complaint: This is a 50-year-old patient, who follows with Dr. Saenz . Patient has a known history of bipolar disorder and schizophrenia. Psychosis and catatonic like syndrome patient for 1 days has become rather lethargic. Not communicating. Not feeding herself. Not talking. Prior to that she was talking and getting about. History was given by the to the ER nurse earlier. When I came to see the patient she is awake but looking straight. Not answering any questions. My smile a little bit. No fever or chills reported. No cough reported. Admitted with acute catatonic state. Hypernatremia, acute kidney injury. IV fluids given. 03/15/2021: This morning while Dr. Lima the psychiatrist was seeing the patient the patient had a witnessed seizure activity. Upper body started shaking. She started drooling. Dr. Valentine from neurology was called. EEG was ordered. 2 mg of IV Ativan followed by Depakote 1250 mg once was given. He also ordered Vimpat. Seizure precautions. Patient continues to remains what appears to be catatonic. Awake looking out not following commands Review of systems: Cannot be obtained as patient is not communicating Past medical history to include: Hypertension, hypothyroid, bipolar disorder, schizophrenia. excessive alcohol use in the past. No smoking. Psychosis, catatonic-like syndrome Social history: Heavy alcohol use in the past. . No smoking. Family history: Patient cannot tell Physical examination: VITAL SIGNS: 98.6, 96, 18, 135/86, 96% room air GENERAL: Laying in bed, awake, looking straight. No following commands. Not moving. EYES: Pupils equal. Conjunctiva normal. HEENT: External appearance of nose and ears normal, oral cavity dry mucous membranes NECK: JVD unable to assess; masses not palpable. HEART: First and second heart sounds are normal; no edema. LUNGS: Respiratory rate normal; clear to auscultation. ABDOMEN: Soft, nontender, liver spleen not palpable, no masses palpable. PSYCH: Unable to assess NEUROLOGICAL: [Cranial nerves grossly intact; no facial asymmetry, limbs extended. Looking ahead INVESTIGATIONS, reviewed in the clinical context: March 15: WBC 7.4 hemoglobin 13.3 platelets 276 sodium 149 potassium 4.4 BUN 25 creatinine 1.37 AST 120 ALT 52 UA positive for leukoesterase, WBC 6, 70 EKG tracing personally reviewed by me-normal sinus rhythm. 92 Urine drug screen positive for benzodiazepine COVID 19 [PCR]: Not detected Chest x-ray film personally reviewed by me-portable. Increased heart size. No obvious infiltrates Assessment and plan: -hypernatremia, from free water deficit: Slow to respond Continue D5.45. at 150 mL an hour. -Possible UTI with cystitis IV ceftriaxone -Schizoaffective disorder, bipolar type. Catatonic-like symptoms. Acute flareup: Slow to respond Consult psychiatry. -New onset of witnessed seizure activity. Given Ativan and Depakote. Started on Vimpat by neurology. EEG. -Bipolar disorder -Acute kidney injury, possibly prerenal IV fluids. Follow function -Diabetes mellitus type 2, on oral hypoglycemic Currently hold oral hypoglycemic. Follow Accu-Cheks -Hypothyroid 88 g Synthroid -Hyperlipidemia The was a 2 g by mouth twice a day TriCor 134 mg before supper -Chronic DVT both lower extremity diagnosed on October 19 2020 Eliquis Continue IV fluids. Repeat labs. EEG. Neurology consulted. Started on Vimpat. Patient not taking by mouth. Change to IV Synthroid and subcu Lovenox. Follow labs.
[2021-03-15 20:34] LABS: Glucose,Whole Blood 144 mg/dL (75-99)
[2021-03-15] MEDS ORDERED: VALPROATE SODIUM 500 MG in SODIUM CHLORIDE 0.9% 100 ML IVPB SCH (21:00)
[2021-03-15] MEDS: ENOXAPARIN 80 MG/0.8 ML SYRINGE SQ SCH (21:26)
[2021-03-15] MEDS: LACOSAMIDE IV 50 MG in SODIUM CHLORIDE 0.9% 50 ML IVPB SCH (21:26)
[2021-03-15] MEDS: cloZAPine 100 MG TAB PO SCH (21:26)
[2021-03-15] MEDS: ATORVASTATIN 40 MG TAB PO SCH (21:29)
[2021-03-16] MEDS: DEXTROSE 5%-0.45% NACL 1,000 ML IV SCH ×5 (05:00→18:11)
[2021-03-16 07:25] LABS: Glucose,Whole Blood 146 mg/dL (75-99)
[2021-03-16] MEDS: ISOSORBIDE MONONITRATE ER 30 MG TAB.ER.24H PO SCH (08:19)
[2021-03-16] MEDS: CHOLECALCIFEROL 25 MCG (1000 IU) TABLET PO SCH (08:19)
[2021-03-16] MEDS: haloperidoL 5 MG TAB PO SCH ×2 (08:19→20:30)
[2021-03-16] MEDS: ENOXAPARIN 80 MG/0.8 ML SYRINGE SQ SCH ×5 (08:20→23:52)
[2021-03-16] MEDS: DESVENLAFAXINE 100 MG PO SCH (08:28)
[2021-03-16] MEDS: LACOSAMIDE IV 50 MG in SODIUM CHLORIDE 0.9% 50 ML IVPB SCH ×2 (08:40→20:31)
--- NOTE | 2021-03-16 10:12 | P.PN ---
Subjective Progress Note Date: 03/16/21 The patient is seen at bedside and per the patient's nurse no further seizure- like activities. Per the nurse, she stated that the nurse that had in the ED yesterday while she had an episode of shaking, the nurse did not feel convinced it was a seizure by the psychiatrist felt it was a seizure. Also per the nurse, before the patient received her Ativan or subq heparin yesterday was asking what was that and was saying it was too much according tot he nurse. Objective - Vital Signs Vital signs: Vital Signs Temp 98.5 F 03/16/21 08:00 Pulse 85 03/16/21 08:00 Resp 18 03/16/21 08:00 BP 139/95 03/16/21 08:00 Pulse Ox 99 03/16/21 08:00 Intake & Output 03/15/21 03/16/21 03/16/21 18:59 06:59 18:59 Output Total 650 Balance -650 Weight 86.183 kg Output: Urine 650 Other: Voiding Method External Catheter # Voids 1 - Exam GENERAL: The patient is lying in bed and is not in acute distress. NEUROLOGICAL: Limited because of her condition. Higher mental function: The patient is very drowsy but is aweakable to voice. Oriented to self but would not respond to time or place. She named pen correctly. She is following simple commands. Could not assess language fully because of her condition. No neglect. Cranial nerves: The pupils are round, equal and reactive to light. Visual welch could not assess. No facial weakness. No dysarthria from limited speech. Could not assess rest of cranial nerves because of her condition. Motor: Gait is deferred. The strength is able to raise bilateral upper extremities above gravity. Was able to dorsiflex and plantarflex ankles bilaterally. Could not assess individual muscles. Has increase tone in uppers and lowers. Has increase tone at knees and ankles. Normal bulk. Cerebellum: Could not asses. Sensation: Could not asses. Reflexes (right/left): Biceps and Patellar are 3+. Otherwise 2+ throughout. Plantars are mute bilaterally. - Labs CBC & Chem 7: 03/14/21 14:06 03/15/21 04:58 Labs: Abnormal Lab Results - Last 24 Hours (Table) 03/15/21 03/15/21 03/15/21 Range/Units 11:10 16:57 20:31 POC Glucose (mg/dL) 118 H 102 H 144 H (75-99) mg/dL 03/16/21 Range/Units 07:20 POC Glucose (mg/dL) 146 H (75-99) mg/dL Microbiology - Last 24 Hours (Table) 03/14/21 14:06 Urine Culture - Preliminary Urine,Clean Catch Gram Neg Bacilli Assessment and Plan Assessment: Possible Seizure (Has ?GTC seizure-like activity on 03/15/2021 lasting 30 seconds and witnessed by psychiatrist): Her possible underlying UTI lowers threshold for seizure and her electrolyte imbalance. Also the patient has a component of altered mental status due to metabolic encephalopathy and medication effect History of seizure about 5-7 years ago (staring episode according to the ) Acute kidney insufficiency and trending down Mild elevated liver function test Hypernatremia Schizoaffective versus schizophrenia with catatonia Diabetes mellitus History of hypothyroidism Morbid obesity Plan: * Currently on Vimpat 50 mg 1 tablet twice a day (not Depakote because of her elevated liver function test and not Keppra because of her significant psychiatric problems). I spoke with psychiatry team and it was decided to place her on Lamictal (which will help with her mood and has antiepileptic effect) with titrating dose with goal of 50mg 1 tab bid then stop Vimpat. * Pending Urgent EEG. * Every 4 hours neuro checks * Continue seizure precautions seizure pads * Consider MRI Brain if continues to be altered. * Psychiatry team is on board * We'll defer the electrolyte imbalance correction as well as urinary tract infection to the primary team. * Upon discharge the patient needs to follow-up with her neurologist (Dr. Devine) within 1-2 weeks. The plan is discussed with the patient's nurse and primary team. Breezy Orozco M.D. Neuro-hospitalist Time with Patient: Less than 30
[2021-03-16 11:03] LABS: Magnesium 2.3 mg/dL (1.5-2.4)
[2021-03-16 11:31] LABS: Glucose,Whole Blood 145 mg/dL (75-99)
--- NOTE | 2021-03-16 12:10 | EEG ---
ELECTROENCEPHALOGRAM REPORT DATE OF SERVICE: 03/16/2021. CLINICAL HISTORY: This is a 50-year-old woman with altered mental status who had reported jerking of all extremities on 03/15/2021 lasting for 30 seconds. The video EEG is obtained to evaluate for seizure epileptiform activity. RELEVANT MEDICATIONS: Ativan, Depakote and Vimpat. EEG TYPE: A routine 21-channel EEG is performed with video using the 10/20 electrode placement system. DESCRIPTION: Wakefulness is only obtained. During the awake state, the background consists of low to moderate voltage of 5.5 to 6.5 hertz theta activity and at times the background consists of delta activity. There is no sleep architecture seen during the study. There is no focal slowing. Interictal and ictal is none. ACTIVATION PROCEDURE: Photic stimulation and hyperventilation are not performed. CLINICAL INTERPRETATION: This is an abnormal routine EEG. The background slowing is suggestive of moderate encephalopathy. There are no focal slowing, epileptiform discharges or seizure on the EEG. Clinical correlation is recommended. RECOMMENDATION: If seizure is still suspected, recommend prolonged EEG. EDITH / FERNANDON: [id number] / DEONNA
--- NOTE | 2021-03-16 12:50 | P.PN ---
Progress Note - Text Progress Note Date: 03/16/21 Chief Complaint: Decreased responsiveness History of presenting complaint: This is a 50-year-old patient, who follows with Dr. Saenz . Patient has a known history of bipolar disorder and schizophrenia. Psychosis and catatonic like syndrome patient for 1 days has become rather lethargic. Not communicating. Not feeding herself. Not talking. Prior to that she was talking and getting about. History was given by the to the ER nurse earlier. When I came to see the patient she is awake but looking straight. Not answering any questions. My smile a little bit. No fever or chills reported. No cough reported. Admitted with acute catatonic state. Hypernatremia, acute kidney injury. IV fluids given. 03/15/2021: This morning while Dr. Lima the psychiatrist was seeing the patient the patient had a witnessed seizure activity. Upper body started shaking. She started drooling. Dr. Valentine from neurology was called. EEG was ordered. 2 mg of IV Ativan followed by Depakote 1250 mg once was given. He also ordered Vimpat. Seizure precautions. Patient continues to remains what appears to be catatonic. Awake looking out not following commands 03/16/2021: Patient is getting occasional words. Still somewhat catatonic. Discussed with Dr. Orozco from neurology. Unclear if patient actually had a seizure yesterday. EEG today. Prolonged EEG tomorrow if required. She will adjust medications accordingly. Patient not eating. Patient took her medications Review of systems: Cannot be obtained as patient is not communicating Past medical history to include: Hypertension, hypothyroid, bipolar disorder, schizophrenia. excessive alcohol use in the past. No smoking. Psychosis, catatonic-like syndrome Social history: Heavy alcohol use in the past. . No smoking. Family history: Patient cannot tell Physical examination: VITAL SIGNS: 98.5, 85, 18, 139/95, 99% room air GENERAL: Laying in bed, awake, seeing occasional words. EYES: Pupils equal. Conjunctiva normal. HEENT: External appearance of nose and ears normal, oral cavity dry mucous membranes NECK: JVD unable to assess; masses not palpable. HEART: First and second heart sounds are normal; no edema. LUNGS: Respiratory rate normal; clear to auscultation. ABDOMEN: Soft, nontender, liver spleen not palpable, no masses palpable. PSYCH: Unable to assess. Saying occasional words. NEUROLOGICAL: [Cranial nerves grossly intact; moving limbs. INVESTIGATIONS, reviewed in the clinical context: March 15: Sodium 148. 23 creatinine 1.12 WBC 7.4 hemoglobin 13.3 platelets 276 sodium 149 potassium 4.4 BUN 25 creatinine 1.37 AST 120 ALT 52 UA positive for leukoesterase, WBC 6, 70 EKG tracing personally reviewed by me-normal sinus rhythm. 92 Urine drug screen positive for benzodiazepine COVID 19 [PCR]: Not detected Chest x-ray film personally reviewed by me-portable. Increased heart size. No obvious infiltrates Assessment and plan: -hypernatremia, from free water deficit: Continue D5.45. at 150 mL an hour. -Possible UTI with cystitis IV ceftriaxone -Schizoaffective disorder, bipolar type. Catatonic-like symptoms. Acute flareup: Slow to respond Consult psychiatry. -New onset of possible seizure activity. Given Ativan and Depakote. Started on Vimpat by neurology. EEG. -Bipolar disorder -Acute kidney injury, possibly prerenal IV fluids. Follow function -Diabetes mellitus type 2, on oral hypoglycemic Currently hold oral hypoglycemic. Follow Accu-Cheks -Hypothyroid 88 g Synthroid -Hyperlipidemia The was a 2 g by mouth twice a day TriCor 134 mg before supper -Chronic DVT both lower extremity diagnosed on October 19 2020 Eliquis Continue IV fluids. Patient not eating. Repeat labs. Awake EEG. Follow with neurology and psychiatry.
--- NOTE | 2021-03-16 14:18 | P.PN ---
Progress Note - Text Progress Note Date: 03/16/21 Interval History: Patient was seen resting in bed without any agitated behavior. Upon evaluation by this provider, the patient is minimally responsive but does respond to some questioning. She is currently not reporting any suicidal or homicidal ideation, intention, and/or plan. However, the patient makes no eye contact and appears to be internally preoccupied. She does endorse auditory and visual hallucinations. The patient is able to follow simple commands. There was initially a concern from [facility] after there was an adjustment of the patient's Pristiq prior to this admission to the hospital. Initially [facility] was concerned about neuroleptic malignant syndrome however, the patient did not display any significant rigidity, or autonomic instability. Mental Status Exam: General Appearance: Patient appears to be stated age is alert, directable, and cooperative. Hygiene and grooming has improved. Patient appears to be slightly diaphoretic. Behavior: Patient is calmly seated upright in her bed. Eye contact is intermittent. Psychomotor retardation is evident. Speech: Patient's speech is nonspontaneous, monotone, minimal. Mood/Affect: Mood is nervous. Affect is anxious and blunted. Suicidality/Homicidality: Patient denies having any suicidal or homicidal ideation intent or plan. Perceptions: Patient endorses both auditory and visual hallucinations. Though content/process: The patient does present. Internally preoccupied. Memory and concentration: Grossly intact purposes of this session. Judgment and insight: Improving mildly Vital Signs Temp 98.5 F 03/16/21 08:00 Pulse 85 03/16/21 08:00 Resp 18 03/16/21 08:00 BP 139/95 03/16/21 08:00 Pulse Ox 99 03/16/21 08:00 Intake & Output 03/15/21 03/16/21 03/16/21 18:59 06:59 18:59 Output Total 650 Balance -650 Weight 86.183 kg Output: Urine 650 Other: Voiding Method External Catheter External Catheter # Voids 1 Laboratory Results - Last 24 Hours 03/15/21 03/15/21 03/15/21 15:28 16:57 20:31 POC Glucose (mg/dL) 102 H 144 H POC Glu Serials Librarian Myrna Capellan Alissa Ionized Calcium Michelle 5.1 Magnesium 2.3 03/16/21 03/16/21 07:20 11:29 POC Glucose (mg/dL) 146 H 145 H POC Glu Serials Librarian Vika Mccain Neena Vang Ionized Calcium Michelle Magnesium Assessment Schizophrenia vs Schizoaffective Disorder Hypothyroidism Hypernatremia Plan: -At this time patient DOES NOT meet criteria for inpatient psychiatric admission. Patient has medical conditions that can manifest in decreased function and altered mental status. We will continue to reevaluate the patient and reassess for need for inpatient psychiatric hospitalization. -Delirium precautions recommended with patient including - avoiding use of narcotics and [employer]LE[employer]LET[employer]OR sedatives, limit anticholinergic medications when possible, frequent re-orientation, minimize use of restraints, open window shades during the day and close them at night -Would recommend the following medication changes/additions: Continue clozaril 300 mg at bedtime for psychosis Continue Haldol 5 mg twice daily for psychosis Start Lamictal 25 mg by mouth at bedtime for augmentation of antipsychotic to address treatment resistant psychosis. The patient has done previously well with trials of Ativan to address catatonic- like symptoms. We will schedule ativan today and re-evaluate for response tomorrow. Hold Pristiq as it was a precipitating factor. -Will continue to follow along
[2021-03-16 16:39] LABS: Glucose,Whole Blood 143 mg/dL (75-99)
[2021-03-16] MEDS: LORazepam 2 MG/ML INJ IV SCH ×2 (18:05→23:52)
[2021-03-16] MEDS: metFORMIN 500 MG TAB PO SCH (18:10)
[2021-03-16] MEDS: FENOFIBRATE 160 MG TAB PO SCH (18:11)
[2021-03-16 20:27] LABS: Glucose,Whole Blood 133 mg/dL (75-99)
[2021-03-16] MEDS: ATORVASTATIN 40 MG TAB PO SCH (20:30)
[2021-03-16] MEDS: cloZAPine 100 MG TAB PO SCH (20:30)
[2021-03-16] MEDS ORDERED: lamoTRIgine 25 MG TAB PO SCH (21:00)
[2021-03-16] MEDS: CEPHALEXIN 250 MG CAP PO SCH (23:52)
[2021-03-17 07:12] LABS: Glucose,Whole Blood 142 mg/dL (75-99)
[2021-03-17 07:23] LABS: African American GFR (CKD) 68 (>60 ml/min/1.73 sqM); Anion Gap 10 mmol/L; Blood Urea Nitrogen 15 mg/dL (7-17); Carbon Dioxide 21 mmol/L (22-30); Chloride 117 mmol/L (98-107); Glucose 159 mg/dL (74-99); Non-African American GFR(CKD) 59 (>60 ml/min/1.73 sqM); Potassium 3.6 mmol/L (3.5-5.1); Sodium 148 mmol/L (137-145)
[2021-03-17] MEDS ORDERED: LEVOTHYROXINE IVP 100 MCG/5 ML VIAL IV SCH (09:00)
[2021-03-17] MEDS: CHOLECALCIFEROL 25 MCG (1000 IU) TABLET PO SCH (09:56)
[2021-03-17] MEDS: ISOSORBIDE MONONITRATE ER 30 MG TAB.ER.24H PO SCH (09:56)
[2021-03-17] MEDS: LORazepam 2 MG/ML INJ IV SCH ×2 (09:56→18:17)
[2021-03-17] MEDS: ENOXAPARIN 80 MG/0.8 ML SYRINGE SQ SCH ×3 (09:57→21:30)
[2021-03-17] MEDS: DEXTROSE 5%-0.45% NACL 1,000 ML IV SCH ×4 (09:57→21:35)
[2021-03-17] MEDS: haloperidoL 5 MG TAB PO SCH ×2 (09:58→21:35)
[2021-03-17] MEDS: CEPHALEXIN 250 MG CAP PO SCH ×3 (09:59→21:30)
--- NOTE | 2021-03-17 11:51 | MR ---
EXAMINATION TYPE: MR brain wo/w con DATE OF EXAM: 03/17/2021 COMPARISON: CT brain 03/14/2021 HISTORY: Altered mental status, seizure protocol TECHNIQUE: Multiplanar, multisequence images of the brain and brainstem is performed without contrast and with c ontrast, patient received 8.5 cc gadolinium contrast IV, fast brain protocol was utilized due to estefanía ent's debility, claustrophobia. FINDINGS: There is some motion on the exam. Diffusion weighted images demonstrate no evidence of a recent infarct or other diffusion abnormality. There is no extra-axial fluid collection or significant white matter signal abnormality, some scatt ered hyperintensities present within deep white matter on inversion recovery and T2-weighted sequence s. The ventricular system and cisternal spaces are normal in size and appearance. The brain volume is age appropriate. Midline structures demonstrate normal morphology, incidental cavum septum pellucidum. The craniocerv ical junction appears within normal limits. Post contrast images demonstrate no abnormal enhancement . The dural venous sinuses appear patent. The visualized sinuses are clear and the globes are intact. IMPRESSION: There is motion, limitation on the exam. Nonspecific white matter demyelination of questi onable clinical significance.
--- NOTE | 2021-03-17 14:03 | P.PN ---
Progress Note - Text Progress Note Date: 03/17/21 Interval History: Patient was seen resting in bed without any agitated behavior. The patient co mpleted her EEG and MRI. She is currently reporting that she is hungry. She is otherwise stating that she is feeling better. She reports she is feeling "less locked up." She reports no suicidal or homicidal ideation, intention, and/or plan. She reports no auditory or visual hallucinations at this time. She denies any paranoia or other delusions. She has been adherent with her medications and is not reporting any significant side effects. Mental Status Exam: General Appearance: Patient appears to be stated age is alert, directable, and cooperative. Hygiene and grooming continues to improve. Patient appears to be slightly diaphoretic. Behavior: Patient is calmly seated upright in her bed. Eye contact is improving. Psychomotor retardation is less today. Speech: Patient's speech is more spontaneous with otherwise slow rate and monotone. Mood/Affect: Mood is "hungry." Affect is blunted. Suicidality/Homicidality: Patient denies having any suicidal or homicidal ideation intent or plan. Perceptions: Patient denies any hallucinations today. Though content/process: The patient does not endorse any bizarre or delusional thought content. Memory and concentration: Grossly intact purposes of this session. AAOx3. Judgment and insight: Improving mildly Vital Signs Temp 98 F 03/17/21 08:00 Pulse 75 03/17/21 08:00 Resp 16 03/17/21 08:00 BP 116/80 03/17/21 08:00 Pulse Ox 96 03/17/21 08:00 Intake & Output 03/16/21 03/17/21 03/17/21 18:59 06:59 18:59 Output Total 400 Balance -400 Output: Urine 400 Other: Voiding Method External Catheter External Catheter External Catheter # Voids 700 Assessment Schizophrenia vs Schizoaffective Disorder Hypothyroidism Hypernatremia Plan: -At this time patient DOES NOT meet criteria for inpatient psychiatric admission. Patient has medical conditions that can manifest in decreased function and altered mental status. We will continue to reevaluate the patient and reassess for need for inpatient psychiatric hospitalization. -Delirium precautions recommended with patient including - avoiding use of narcotics and BASIN TENDER sedatives, limit anticholinergic medications when possible, frequent re-orientation, minimize use of restraints, open window shades during the day and close them at night -Would recommend the following medication changes/additions: Continue clozaril 300 mg at bedtime for psychosis Continue Haldol 5 mg twice daily for psychosis Increase Lamictal to 25 mg by mouth at twice daily for augmentation of antipsychotic to address treatment resistant psychosis. Continue Ativan 1 mg IV q8Hr for anxiety/Catatonia history -Will continue to follow along
[2021-03-17 14:20] LABS: Glucose,Whole Blood 98 mg/dL (75-99)
[2021-03-17] MEDS: LACOSAMIDE IV 50 MG in SODIUM CHLORIDE 0.9% 50 ML IVPB SCH (14:39)
--- NOTE | 2021-03-17 15:21 | P.PN ---
Subjective Progress Note Date: 03/17/21 The patient is seen at bedside and per the nurse she is more cooperative, more aware, alert and no further seizures. The patient's is at bedside and feels she is doing better today compared to her presentation. The patient feels she is doing better, denies headaches. She has neuropathy and has difficulty walking that is chronic and denies of any back pain. Objective - Vital Signs Vital signs: Vital Signs Temp 98 F 03/17/21 08:00 Pulse 75 03/17/21 08:00 Resp 16 03/17/21 08:00 BP 116/80 03/17/21 08:00 Pulse Ox 96 03/17/21 08:00 Intake & Output 03/16/21 03/17/21 03/17/21 18:59 06:59 18:59 Output Total 400 Balance -400 Output: Urine 400 Other: Voiding Method External Catheter External Catheter External Catheter # Voids 700 - Exam GENERAL: The patient is lying in bed and is not in acute distress. NEUROLOGICAL: Higher mental function: The patient is awake, alert, oriented to self and place. She stated the year is 2020 but the month is November. She is somewhat slow to respond. She is able to name some objects (pen, watch). She is following simple commands. No aphasia or neglect. Cranial nerves: The pupils are round, equal and reactive to light. Visual welch are full to confrontation. EOM is intact and no nystagmus. Normal facial sensation. No facial weakness. No dysarthria. Is able to stick tongue out and move side to side without difficulty. c Motor: Gait is deferred. The strength is able to raise bilateral upper extremities above gravity (more upper > lowers) and no focality noted. Normal tone and bulk. Cerebellum: Normal finger to nose bilaterally. Sensation: Normal to touch. Reflexes (right/left): Biceps and Patellar are 3+. Otherwise 2+ throughout. Plantars are mute bilaterally. WORK-UP: Urinalysis seem possible suggestive of urinary tract infection. AST is 120 and ALT of 52 Ammonia level is less than 9. Toxicology screen is positive for benzodiazepine. Routine EEG on 03/16/2021 is abnormal. The slowing suggestive of moderate encephalopathy. There are no focal slowing, epileptiform discharges or seizure on the EEG. MRI of the brain that was done on 03/17/2021 is reported as there is motion, limitation on exam. Nonspecific white matter demyelination of questionable clinical significance. In the body of report is reported that the patient has postcontrast images demonstrated no abnormal enhancement. I personally reviewed the MRI the brain and there is no lesions on the postcontrast. As well as no lesions that stood out for me that seems significant on FLAIR. - Labs CBC & Chem 7: 03/14/21 14:06 03/17/21 05:53 Labs: Abnormal Lab Results - Last 24 Hours (Table) 03/16/21 03/16/21 03/17/21 Range/Units 16:34 20:25 05:53 Sodium 148 H (137-145) mmol/L Chloride 117 H (98-107) mmol/L Carbon Dioxide 21 L (22-30) mmol/L Creatinine 1.09 H (0.52-1.04) mg/dL Glucose 159 H (74-99) mg/dL POC Glucose (mg/dL) 143 H 133 H (75-99) mg/dL 03/17/21 Range/Units 07:11 Sodium (137-145) mmol/L Chloride (98-107) mmol/L Carbon Dioxide (22-30) mmol/L Creatinine (0.52-1.04) mg/dL Glucose (74-99) mg/dL POC Glucose (mg/dL) 142 H (75-99) mg/dL Microbiology - Last 24 Hours (Table) 03/14/21 14:06 Urine Culture - Final Urine,Clean Catch Escherichia coli Assessment and Plan Assessment: Possible Seizure (Has ?GTC seizure-like activity on 03/15/2021 lasting 30 seconds and witnessed by psychiatrist): Her possible underlying UTI lowers threshold for seizure and her electrolyte imbalance. Also the patient has a component of altered mental status due to metabolic encephalopathy and medication effect ---mentation improving History of seizure about 5-7 years ago (staring episode according to the ) Acute kidney insufficiency and trending down Mild elevated liver function test Hypernatremia Schizoaffective versus schizophrenia with catatonia Diabetes mellitus History of hypothyroidism Morbid obesity Plan: * Currently on Vimpat 50 mg 1 tablet twice a day (not Depakote because of her elevated liver function test and not Keppra because of her significant psychiatric problems). I spoke with psychiatry team and it was decided to place her on Lamictal (which will help with her mood and has antiepileptic effect) with titrating dose with goal of 50mg 1 tab bid. Currently on lamictal 25mg 1 tab bid. Once on Lamictal 50mg 1 tab titrate Vimpat down until discontinued (to 50mg in am then 25mg qhs for 3 days then after three days 25mg 1 tab bid then after 3 days from that 25mg qam then 3 days later discontinue). * Ordered 2 1/2 hours EEG. * I ordered vitamin B12 and folate level as well as TSH level. If TSH is abnormal defer the management to the primary team. * Every 4 hours neuro checks * Continue seizure precautions seizure pads * Psychiatry team is on board * We'll defer the electrolyte imbalance correction as well as urinary tract infection to the primary team. * Upon discharge the patient needs to follow-up with her neurologist within 2 weeks. Patient would like to see a second opinion and recommended Dr. Indio Alberts (over at [facility]). Consider Epilepsy Monitoring Unit (EMU) as outpatient if patient has any staring spells or seizure-like activity to capture events and determine whether she has true epileptic episodes. The plan is discussed with the patient's (who is at bedside), nurse, primary team and psychiatry team. If the half EEG does not show any evidence of seizures or epileptiform discharges then from a neurologic perspective she is clear. Breezy Orozco M.D. Neuro-hospitalist Time with Patient: Less than 30
[2021-03-17 16:41] LABS: Glucose,Whole Blood 116 mg/dL (75-99)
[2021-03-17] MEDS: metFORMIN 500 MG TAB PO SCH (17:39)
--- NOTE | 2021-03-17 17:50 | EEG ---
ELECTROENCEPHALOGRAM REPORT DATE OF PROCEDURE: 03/17/2021. ELECTROENCEPHALOGRAM (EEG) REPORT: TECHNIQUE: This is a report from a prolonged 2-1/2-hour digital video EEG performed using the 10/20 electrode placement system. HISTORY: Patient admitted for altered mental status. Other medical history includes hypertension, hypothyroidism, bipolar disorder, schizophrenia. CURRENT MEDICATIONS: Tylenol, Eliquis, Lipitor, Lofibra, Haldol, Imdur, Synthroid, Ativan, metformin, MiraLAX, valproic acid. FINDINGS: Recording start time: 03/17/2021 at 1058 hours. Recording end time: 03/17/2021 at 1331 hours. EVENTS: During this 2-1/2-hour prolonged digital video EEG, no clinical or electrographic seizures were recorded. BACKGROUND: Please note that the patient was drowsy or asleep for essentially the entire recording. During the occasional periods of relatively maximal arousal, the background activity consisted of unsustained 5-6 hertz rhythmic waveforms. ACTIVATION Hyperventilation: Not performed. Photic stimulation: No driving seen. Sleep: Stages I and II sleep noted. ABNORMALITIES: During the rare periods of maximal alertness, diffuse 4-6 hertz theta range slowing was seen. IMPRESSION: Limited study, predominantly sleep EEG. No clinical or electrographic seizures were recorded. No epileptiform activity was present. During the rare periods of maximal alertness, intermittent diffuse theta range slowing was seen which is not epileptiform in nature. These findings suggest moderate diffuse cerebral dysfunction as may be seen in a toxometabolic encephalopathy. No seizures were recorded. No epileptiform activity was present. MMODL / IJN: [id number] /
[2021-03-17] MEDS: FENOFIBRATE 160 MG TAB PO SCH (17:56)
--- NOTE | 2021-03-17 18:48 | P.PN ---
Progress Note - Text Progress Note Date: 03/17/21 Chief Complaint: Decreased responsiveness History of presenting complaint: This is a 50-year-old patient, who follows with Dr. Saenz . Patient has a known history of bipolar disorder and schizophrenia. Psychosis and catatonic like syndrome patient for 1 days has become rather lethargic. Not communicating. Not feeding herself. Not talking. Prior to that she was talking and getting about. History was given by the to the ER nurse earlier. When I came to see the patient she is awake but looking straight. Not answering any questions. My smile a little bit. No fever or chills reported. No cough reported. Admitted with acute catatonic state. Hypernatremia, acute kidney injury. IV fluids given. 03/15/2021: This morning while Dr. Lima the psychiatrist was seeing the patient the patient had a witnessed seizure activity. Upper body started shaking. She started drooling. Dr. Valentine from neurology was called. EEG was ordered. 2 mg of IV Ativan followed by Depakote 1250 mg once was given. He also ordered Vimpat. Seizure precautions. Patient continues to remains what appears to be catatonic. Awake looking out not following commands 03/16/2021: Patient is getting occasional words. Still somewhat catatonic. Discussed with Dr. Orozco from neurology. Unclear if patient actually had a seizure yesterday. EEG today. Prolonged EEG tomorrow if required. She will adjust medications accordingly. Patient not eating. Patient took her medications 03/17/2021: Patient is far more responsive today. By this evening patient is actually eating smiling having simple conversation. Earlier today discussed with Dr. Orozco from neurology. EEG was done. Negative for seizure. Patient is on Ativan. For catatonia. Review of systems: Was done for constitutional, cardiovascular, GI, pulmonary. relevant finding as above Active Medications Acetaminophen (Acetaminophen Tab 325 Mg Tab) 650 mg PO Q6H PRN PRN Reason: Fever and/ or Pain Atorvastatin Calcium (Atorvastatin 40 Mg Tab) 40 mg PO HS [facility] Last Admin: 03/16/21 20:30 Dose: 40 mg Documented by: Cephalexin (Cephalexin 250 Mg Cap) 250 mg PO TID [facility] Last Admin: 03/17/21 15:18 Dose: 250 mg Documented by: Cholecalciferol (Cholecalciferol 25 Mcg (1000 Iu) Tablet) 50 mcg PO DAILY [facility] Last Admin: 03/17/21 09:56 Dose: 50 mcg Documented by: Clozapine (Clozapine 100 Mg Tab) 300 mg PO [facility] Stop: 03/22/21 21:01 Last Admin: 03/16/21 20:30 Dose: 300 mg Documented by: Enoxaparin Sodium (Enoxaparin 80 Mg/0.8 Ml Syringe) 80 mg SQ Q12HR [facility] Last Admin: 03/17/21 10:09 Dose: Not Given Documented by: Fenofibrate (Fenofibrate 160 Mg Tab) 160 mg PO AC-SUPPER [facility] Last Admin: 03/17/21 17:56 Dose: 160 mg Documented by: Haloperidol (Haloperidol 5 Mg Tab) 5 mg PO BID [facility] Last Admin: 03/17/21 09:58 Dose: 5 mg Documented by: Dextrose/Sodium Chloride (Dextrose 5%-1/2ns Iv Soln) 1,000 mls @ 150 mls/hr IV .Q6H40M [facility] Last Admin: 03/17/21 18:19 Dose: 150 mls/hr Documented by: Isosorbide Mononitrate (Isosorbide Mononitrate Er 30 Mg Tab.Er.24h) 30 mg PO DAILY [facility] Last Admin: 03/17/21 09:56 Dose: 30 mg Documented by: Lacosamide (Lacosamide 50 Mg Tablet) 50 mg PO BID [facility] Lamotrigine (Lamotrigine 25 Mg Tab) 25 mg PO BID [facility] Levothyroxine Sodium (Levothyroxine Ivp 100 Mcg/5 Ml Vial) 66 mcg IV Q48H [facility] Last Admin: 03/17/21 09:58 Dose: 66 mcg Documented by: Lorazepam (Lorazepam 1 Mg Tab) 1 mg PO QID PRN PRN Reason: Anxiety/Agitation Lorazepam (Lorazepam 2 Mg/Ml Inj) 1 mg IV Q8HR [facility] Last Admin: 03/17/21 18:17 Dose: 1 mg Documented by: Metformin HCl (Metformin 500 Mg Tab) 1,000 mg PO AC-SUPPER [facility] Last Admin: 03/17/21 17:39 Dose: Not Given Documented by: Naloxone HCl (Naloxone 0.4 Mg/Ml 1 Ml Vial) 0.2 mg IV Q2M PRN PRN Reason: Opioid Reversal Polyethylene Glycol (Polyethylene Glycol 3350 17 Gm Powd.Pack) 17 gm PO DAILY PRN PRN Reason: Constipation Past medical history to include: Hypertension, hypothyroid, bipolar disorder, schizophrenia. excessive alcohol use in the past. No smoking. Psychosis, catatonic-like syndrome Social history: Heavy alcohol use in the past. . No smoking. Family history: Patient cannot tell Physical examination: VITAL SIGNS: 97.9, 79, 17, 128/87, 94% room air GENERAL: The plan in bed, more awake, eating a Popsicle. Smiling. EYES: Pupils equal. Conjunctiva normal. HEENT: External appearance of nose and ears normal, oral cavity normal NECK: JVD unable to assess; masses not palpable. HEART: First and second heart sounds are normal; no edema. LUNGS: Respiratory rate normal; clear to auscultation. ABDOMEN: Soft, nontender, liver spleen not palpable, no masses palpable. PSYCH: Answering simple questions. NEUROLOGICAL: [Cranial nerves grossly intact; moving limbs. INVESTIGATIONS, reviewed in the clinical context: March 17: Sodium 148 BUN 15 creatinine 1.09 Urine culture: E. coli March 15: Sodium 148. 23 creatinine 1.12 WBC 7.4 hemoglobin 13.3 platelets 276 sodium 149 potassium 4.4 BUN 25 creatinine 1.37 AST 120 ALT 52 UA positive for leukoesterase, WBC 6, 70 EKG tracing personally reviewed by me-normal sinus rhythm. 92 Urine drug screen positive for benzodiazepine COVID 19 [PCR]: Not detected Chest x-ray film personally reviewed by me-portable. Increased heart size. No obvious infiltrates Assessment and plan: -hypernatremia, from free water deficit: Continue D5.45. at 150 mL an hour. - UTI with cystitis from E. coli Keflex -Schizoaffective disorder, bipolar type. Catatonic-like symptoms. Acute flareup: On scheduled Ativan. On Lamictal 25 mg twice a day. Vimpat 50 mg 3 times a day. Lamictal to be titrated up and Vimpat to be titrated down. -Questionable seizure activity.: Likely EEG negative. Vimpat to be tapered off. -Bipolar disorder -Acute kidney injury, possibly prerenal: Improving IV fluids. Follow function -Diabetes mellitus type 2, on oral hypoglycemic Currently hold oral hypoglycemic. Follow Accu-Cheks -Hypothyroid 88 g Synthroid -Hyperlipidemia Lipitor 40 mg daily at bedtime TriCor 134 mg before supper -Chronic DVT both lower extremity diagnosed on October 19 2020 Eliquis Continue IV fluids. Encourage oral intake. Started on Lamictal. Vimpat to be tapered down. On IV Ativan. Patient may benefit from a short inpatient psychiatry stay given her labile condition. Clinically she is improving.
[2021-03-17 20:12] LABS: Glucose,Whole Blood 88 mg/dL (75-99)
[2021-03-17] MEDS: cloZAPine 100 MG TAB PO SCH (21:29)
[2021-03-17] MEDS: ATORVASTATIN 40 MG TAB PO SCH (21:30)
[2021-03-17] MEDS: lamoTRIgine 25 MG TAB PO SCH (21:30)
[2021-03-17] MEDS: ONDANSETRON 4 MG/2 ML VIAL IVP PRN (23:10)
[2021-03-17] MEDS: LACOSAMIDE 50 MG TABLET PO SCH (23:16)
[2021-03-18] MEDS: LORazepam 2 MG/ML INJ IV SCH ×3 (00:48→15:21)
[2021-03-18] MEDS: ACETAMINOPHEN TAB 325 MG TAB PO PRN ×2 (02:15→17:25)
[2021-03-18] MEDS: DEXTROSE 5%-0.45% NACL 1,000 ML IV SCH ×3 (04:27→19:59)
[2021-03-18 07:15] LABS: Glucose,Whole Blood 147 mg/dL (75-99)
[2021-03-18] MEDS: LACOSAMIDE 50 MG TABLET PO SCH ×2 (07:52→20:22)
[2021-03-18] MEDS: haloperidoL 5 MG TAB PO SCH ×2 (07:52→20:22)
[2021-03-18] MEDS: CEPHALEXIN 250 MG CAP PO SCH ×3 (07:52→20:22)
[2021-03-18] MEDS: lamoTRIgine 25 MG TAB PO SCH ×2 (07:52→20:22)
[2021-03-18] MEDS: ENOXAPARIN 80 MG/0.8 ML SYRINGE SQ SCH ×2 (07:52→20:22)
[2021-03-18] MEDS: CHOLECALCIFEROL 25 MCG (1000 IU) TABLET PO SCH (07:53)
[2021-03-18] MEDS: cloZAPine 100 MG TAB PO SCH (07:53)
[2021-03-18] MEDS: ISOSORBIDE MONONITRATE ER 30 MG TAB.ER.24H PO SCH (07:53)
[2021-03-18] MEDS: ONDANSETRON 4 MG/2 ML VIAL IVP PRN (08:04)
--- NOTE | 2021-03-18 09:41 | P.PN ---
Subjective Progress Note Date: 03/18/21 She was seen at bedside and states she is doing well. No further seizure-like activity per the patient's nurse. Objective - Vital Signs Vital signs: Vital Signs Temp 100.1 F H 03/18/21 06:39 Pulse 80 03/18/21 06:39 Resp 18 03/18/21 02:00 BP 143/78 03/18/21 06:39 Pulse Ox 94 L 03/18/21 06:39 Intake & Output 03/17/21 03/18/21 03/18/21 18:59 06:59 18:59 Intake Total 236 Output Total 700 1400 Balance -464 -1400 Intake: Oral 236 Output: Urine 700 1400 Other: Voiding Method External Catheter Toilet Diaper External Catheter - Exam GENERAL: The patient is lying in bed and is not in acute distress. NEUROLOGICAL: Higher mental function: The patient is awake, alert, oriented to self and place. She stated the year is 2020 but the month is November. She is somewhat slow to respond. She is able to name some objects (pen, watch). She is following simple commands. No aphasia or neglect. Cranial nerves: The pupils are round, equal and reactive to light. Visual welch are full to confrontation. EOM is intact and no nystagmus. Normal facial sensation. No facial weakness. No dysarthria. Is able to stick tongue out and move side to side without difficulty. c Motor: Gait is deferred. The strength is able to raise bilateral upper extremities above gravity (more upper > lowers) and no focality noted. Normal tone and bulk. Cerebellum: Normal finger to nose bilaterally. Sensation: Normal to touch. Reflexes (right/left): Biceps and Patellar are 3+. Otherwise 2+ throughout. Plantars are mute bilaterally. WORK-UP: * Urinalysis seem possible suggestive of urinary tract infection. * AST is 120 and ALT of 52 * Ammonia level is less than 9. * Toxicology screen is positive for benzodiazepine. * Routine EEG on 03/16/2021 is abnormal. The slowing suggestive of moderate encephalopathy. There are no focal slowing, epileptiform discharges or seizure on the EEG. * 2 and 1/2 hour EEG on 03/17/2021: Reported as limited study, predominantly sleep EEG. No clinical or electrographic seizures were recorded. No epileptiform activity was present. During the rare periods of maximal alertness, intermittent diffuse theta range slowing was seen which is not epileptiform in nature. These findings suggest moderate diffuse cerebral dysfunction as may be seen in a toxic metabolic encephalopathy. * MRI of the brain that was done on 03/17/2021 is reported as there is motion, limitation on exam. Nonspecific white matter demyelination of questionable clinical significance. In the body of report is reported that the patient has postcontrast images demonstrated no abnormal enhancement. I personally reviewed the MRI the brain and there is no lesions on the postcontrast. As well as no lesions that stood out for me that seems significant on FLAIR. - Labs CBC & Chem 7: 03/14/21 14:06 03/17/21 05:53 Labs: Abnormal Lab Results - Last 24 Hours (Table) 03/17/21 03/18/21 Range/Units 16:40 07:13 POC Glucose (mg/dL) 116 H 147 H (75-99) mg/dL Assessment and Plan Assessment: * Possible Seizure (Has ?GTC seizure-like activity on 03/15/2021 lasting 30 seconds and witnessed by psychiatrist): Her possible underlying UTI lowers threshold for seizure and her electrolyte imbalance (both routine EEG and 2 1/2 hour EEG negative for seizure or epileptiform activity) * Also the patient has a component of altered mental status due to metabolic encephalopathy and medication effect ---mentation improving * History of seizure about 5-7 years ago (staring episode according to the ) * Acute kidney insufficiency and trending down * Mild elevated liver function test * Hypernatremia * Schizoaffective versus schizophrenia with catatonia * Diabetes mellitus * History of hypothyroidism * Morbid obesity Plan: * Currently on Vimpat 50 mg 1 tablet twice a day (not Depakote because of her elevated liver function test and not Keppra because of her significant psychiatric problems). I spoke with psychiatry team and it was decided to place her on Lamictal (which will help with her mood and has antiepileptic effect) with titrating dose with goal of 50mg 1 tab bid. Currently on lamictal 25mg 1 tab bid. Once on Lamictal 50mg 1 tab titrate Vimpat down until discontinued (to 50mg in am then 25mg qhs for 3 days then after three days 25mg 1 tab bid then after 3 days from that 25mg qam then 3 days later discontinue). * Pending vitamin B12 and folate level as well as TSH level. If TSH is abnormal defer the management to the primary team. If Vitamin B12 is low or deficient recommend starting on 1000mcg daily. If folate is deficient or low recommend starting on folic acid 1mg daily. * Every 4 hours neuro checks * Continue seizure precautions seizure pads * Psychiatry team is on board * We'll defer the electrolyte imbalance correction as well as urinary tract infection to the primary team. * Upon discharge the patient needs to follow-up with her neurologist within 2 weeks. Patient would like to see a second opinion and recommended Dr. Indio Alberts (over at [facility]). Consider Epilepsy Monitoring Unit (EMU) as outpatient if patient has any staring spells or seizure-like activity to capture events and determine whether she has true epileptic episodes. The plan is discussed with the patient's nurse and her . There is no further work-up. Patient is clear from neurological perspective. Breezy Orozco M.D. Neuro-hospitalist Time with Patient: Less than 30
[2021-03-18 11:07] LABS: T4, Free (Free Thyroxine) 0.94 ng/dL (0.78-2.19)
[2021-03-18 11:26] LABS: Glucose,Whole Blood 109 mg/dL (75-99)
--- NOTE | 2021-03-18 15:33 | P.PN ---
Progress Note - Text Progress Note Date: 03/18/21 Chief Complaint: Decreased responsiveness History of presenting complaint: This is a 50-year-old patient, who follows with Dr. Saenz . Patient has a known history of bipolar disorder and schizophrenia. Psychosis and catatonic like syndrome patient for 1 days has become rather lethargic. Not communicating. Not feeding herself. Not talking. Prior to that she was talking and getting about. History was given by the to the ER nurse earlier. When I came to see the patient she is awake but looking straight. Not answering any questions. My smile a little bit. No fever or chills reported. No cough reported. Admitted with acute catatonic state. Hypernatremia, acute kidney injury. IV fluids given. 03/15/2021: This morning while Dr. Lima the psychiatrist was seeing the patient the patient had a witnessed seizure activity. Upper body started shaking. She started drooling. Dr. Valentine from neurology was called. EEG was ordered. 2 mg of IV Ativan followed by Depakote 1250 mg once was given. He also ordered Vimpat. Seizure precautions. Patient continues to remains what appears to be catatonic. Awake looking out not following commands 03/16/2021: Patient is getting occasional words. Still somewhat catatonic. Discussed with Dr. Orozco from neurology. Unclear if patient actually had a seizure yesterday. EEG today. Prolonged EEG tomorrow if required. She will adjust medications accordingly. Patient not eating. Patient took her medications 03/17/2021: Patient is far more responsive today. By this evening patient is actually eating smiling having simple conversation. Earlier today discussed with Dr. Orozco from neurology. EEG was done. Negative for seizure. Patient is on Ativan. For catatonia. 03/18/2021: Laying in bed. Eating some. Answering simple questions. Remains on IV Ativan. Patient is medically stable to be transferred to psychiatry floor if the patient is accepted there. Schedule nurse Review of systems: Was done for constitutional, cardiovascular, GI, pulmonary. relevant finding as above Active Medications Acetaminophen (Acetaminophen Tab 325 Mg Tab) 650 mg PO Q6H PRN PRN Reason: Fever and/ or Pain Last Admin: 03/18/21 02:15 Dose: 650 mg Documented by: Atorvastatin Calcium (Atorvastatin 40 Mg Tab) 40 mg PO HS [facility] Last Admin: 03/17/21 21:30 Dose: 40 mg Documented by: Cephalexin (Cephalexin 250 Mg Cap) 250 mg PO TID [facility] Last Admin: 03/18/21 15:22 Dose: 250 mg Documented by: Cholecalciferol (Cholecalciferol 25 Mcg (1000 Iu) Tablet) 50 mcg PO DAILY [facility] Last Admin: 03/18/21 07:53 Dose: 50 mcg Documented by: Clozapine (Clozapine 100 Mg Tab) 300 mg PO [facility] Stop: 03/22/21 21:01 Last Admin: 03/18/21 07:53 Dose: 300 mg Documented by: Enoxaparin Sodium (Enoxaparin 80 Mg/0.8 Ml Syringe) 80 mg SQ Q12HR [facility] Last Admin: 03/18/21 07:52 Dose: 80 mg Documented by: Fenofibrate (Fenofibrate 160 Mg Tab) 160 mg PO AC-SUPPER [facility] Last Admin: 03/17/21 17:56 Dose: 160 mg Documented by: Haloperidol (Haloperidol 5 Mg Tab) 5 mg PO BID [facility] Last Admin: 03/18/21 07:52 Dose: 5 mg Documented by: Dextrose/Sodium Chloride (Dextrose 5%-1/2ns Iv Soln) 1,000 mls @ 150 mls/hr IV .Q6H40M [facility] Last Admin: 03/18/21 04:27 Dose: Not Given Documented by: Isosorbide Mononitrate (Isosorbide Mononitrate Er 30 Mg Tab.Er.24h) 30 mg PO DAILY [facility] Last Admin: 03/18/21 07:53 Dose: 30 mg Documented by: Lacosamide (Lacosamide 50 Mg Tablet) 50 mg PO BID [facility] Last Admin: 03/18/21 07:52 Dose: 50 mg Documented by: Lamotrigine (Lamotrigine 25 Mg Tab) 25 mg PO BID [facility] Last Admin: 03/18/21 07:52 Dose: 25 mg Documented by: Levothyroxine Sodium (Levothyroxine Ivp 100 Mcg/5 Ml Vial) 66 mcg IV Q48H [facility] Last Admin: 03/17/21 09:58 Dose: 66 mcg Documented by: Lorazepam (Lorazepam 1 Mg Tab) 1 mg PO QID PRN PRN Reason: Anxiety/Agitation Lorazepam (Lorazepam 2 Mg/Ml Inj) 1 mg IV Q8HR [facility] Last Admin: 03/18/21 15:21 Dose: 1 mg Documented by: Metformin HCl (Metformin 500 Mg Tab) 1,000 mg PO AC-SUPPER [facility] Last Admin: 03/17/21 17:39 Dose: Not Given Documented by: Naloxone HCl (Naloxone 0.4 Mg/Ml 1 Ml Vial) 0.2 mg IV Q2M PRN PRN Reason: Opioid Reversal Ondansetron HCl (Ondansetron 4 Mg/2 Ml Vial) 4 mg IVP Q4HR PRN PRN Reason: Nausea And Vomiting Last Admin: 03/18/21 08:04 Dose: 4 mg Documented by: Polyethylene Glycol (Polyethylene Glycol 3350 17 Gm Powd.Pack) 17 gm PO DAILY PRN PRN Reason: Constipation Past medical history to include: Hypertension, hypothyroid, bipolar disorder, schizophrenia. excessive alcohol use in the past. No smoking. Psychosis, catatonic-like syndrome Social history: Heavy alcohol use in the past. . No smoking. Family history: Patient cannot tell Physical examination: VITAL SIGNS: 100, 84, 116/82, 91% room air GENERAL: Reclining in bed, awake, tired EYES: Pupils equal. Conjunctiva normal. HEENT: External appearance of nose and ears normal, oral cavity normal NECK: JVD unable to assess; masses not palpable. HEART: First and second heart sounds are normal; no edema. LUNGS: Respiratory rate normal; clear to auscultation. ABDOMEN: Soft, nontender, liver spleen not palpable, no masses palpable. PSYCH: Answering simple questions. NEUROLOGICAL: [Cranial nerves grossly intact; moving limbs. INVESTIGATIONS, reviewed in the clinical context: March 17: Sodium 148 BUN 15 creatinine 1.09 Urine culture: E. coli March 15: Sodium 148. 23 creatinine 1.12 WBC 7.4 hemoglobin 13.3 platelets 276 sodium 149 potassium 4.4 BUN 25 creatinine 1.37 AST 120 ALT 52 UA positive for leukoesterase, WBC 6, 70 EKG tracing personally reviewed by me-normal sinus rhythm. 92 Urine drug screen positive for benzodiazepine COVID 19 [PCR]: Not detected Chest x-ray film personally reviewed by me-portable. Increased heart size. No obvious infiltrates Assessment and plan: -hypernatremia, from free water deficit: Continue D5.45. at 150 mL an hour. - UTI with cystitis from E. coli Keflex -Schizoaffective disorder, bipolar type. Catatonic-like symptoms. Acute flareup: On scheduled Ativan. On Lamictal 25 mg twice a day. Vimpat 50 mg 3 times a day. Lamictal to be titrated up and Vimpat to be titrated down. -Questionable seizure activity.: unLikely EEG negative. Vimpat to be tapered off. -Bipolar disorder -Acute kidney injury, possibly prerenal: Improving IV fluids. Follow function -Diabetes mellitus type 2, on oral hypoglycemic Currently hold oral hypoglycemic. Follow Accu-Cheks -Hypothyroid 88 g Synthroid -Hyperlipidemia Lipitor 40 mg daily at bedtime TriCor 134 mg before supper -Chronic DVT both lower extremity diagnosed on October 19 2020 Eliquis Continue IV fluids. Encourage oral intake. On IV Ativan. Lamictal. Vimpat. Awaiting input from psychiatry. Patient stable to be discharged to psychiatry unit.
[2021-03-18 16:57] LABS: Glucose,Whole Blood 94 mg/dL (75-99)
[2021-03-18] MEDS: metFORMIN 500 MG TAB PO SCH (17:25)
[2021-03-18] MEDS: FENOFIBRATE 160 MG TAB PO SCH (17:25)
[2021-03-18] MEDS: ATORVASTATIN 40 MG TAB PO SCH (20:22)
[2021-03-18 20:33] LABS: Glucose,Whole Blood 104 mg/dL (75-99)
[2021-03-18] MEDS ORDERED: CYANOCOBALAMIN 1,000 MCG/ML 1 ML VIAL IM ONE (21:54)
[2021-03-19] MEDS: LORazepam 2 MG/ML INJ IV SCH ×2 (00:13→09:16)
[2021-03-19] MEDS: DEXTROSE 5%-0.45% NACL 1,000 ML IV SCH ×4 (01:30→21:07)
[2021-03-19] MEDS: ACETAMINOPHEN TAB 325 MG TAB PO PRN ×3 (05:32→17:10)
[2021-03-19] MEDS: LEVOTHYROXINE 88 MCG TAB PO SCH (05:32)
[2021-03-19 07:15] LABS: Glucose,Whole Blood 107 mg/dL (75-99)
[2021-03-19 08:07] LABS: African American GFR (CKD) 68 (>60 ml/min/1.73 sqM); Anion Gap 8 mmol/L; Blood Urea Nitrogen 16 mg/dL (7-17); Calcium 9.7 mg/dL (8.4-10.2); Carbon Dioxide 26 mmol/L (22-30); Chloride 119 mmol/L (98-107); Glucose 129 mg/dL (74-99); Non-African American GFR(CKD) 59 (>60 ml/min/1.73 sqM); Potassium 3.9 mmol/L (3.5-5.1); Sodium 153 mmol/L (137-145)
[2021-03-19] MEDS ORDERED: CYANOCOBALAMIN 1,000 MCG/ML 1 ML VIAL IM SCH (09:00)
[2021-03-19] MEDS: lamoTRIgine 25 MG TAB PO SCH ×2 (09:13→21:07)
[2021-03-19] MEDS: ENOXAPARIN 80 MG/0.8 ML SYRINGE SQ SCH ×2 (09:14→21:06)
[2021-03-19] MEDS: haloperidoL 5 MG TAB PO SCH (09:15)
[2021-03-19] MEDS: FOLIC ACID 1 MG TAB PO SCH (09:15)
[2021-03-19] MEDS: CEPHALEXIN 250 MG CAP PO SCH ×3 (09:15→21:07)
[2021-03-19] MEDS: CHOLECALCIFEROL 25 MCG (1000 IU) TABLET PO SCH (09:16)
[2021-03-19 11:44] LABS: Glucose,Whole Blood 156 mg/dL (75-99)
[2021-03-19] MEDS: ISOSORBIDE MONONITRATE ER 30 MG TAB.ER.24H PO SCH (11:47)
[2021-03-19] MEDS: LACOSAMIDE 50 MG TABLET PO SCH ×2 (11:47→21:07)
--- NOTE | 2021-03-19 15:06 | P.PN ---
Progress Note - Text Progress Note Date: 03/19/21 Chief Complaint: Decreased responsiveness History of presenting complaint: This is a 50-year-old patient, who follows with Dr. Saenz . Patient has a known history of bipolar disorder and schizophrenia. Psychosis and catatonic like syndrome patient for 1 days has become rather lethargic. Not communicating. Not feeding herself. Not talking. Prior to that she was talking and getting about. History was given by the to the ER nurse earlier. When I came to see the patient she is awake but looking straight. Not answering any questions. My smile a little bit. No fever or chills reported. No cough reported. Admitted with acute catatonic state. Hypernatremia, acute kidney injury. IV fluids given. 03/15/2021: This morning while Dr. Lima the psychiatrist was seeing the patient the patient had a witnessed seizure activity. Upper body started shaking. She started drooling. Dr. Valentine from neurology was called. EEG was ordered. 2 mg of IV Ativan followed by Depakote 1250 mg once was given. He also ordered Vimpat. Seizure precautions. Patient continues to remains what appears to be catatonic. Awake looking out not following commands 03/16/2021: Patient is getting occasional words. Still somewhat catatonic. Discussed with Dr. Orozco from neurology. Unclear if patient actually had a seizure yesterday. EEG today. Prolonged EEG tomorrow if required. She will adjust medications accordingly. Patient not eating. Patient took her medications 03/17/2021: Patient is far more responsive today. By this evening patient is actually eating smiling having simple conversation. Earlier today discussed with Dr. Orozco from neurology. EEG was done. Negative for seizure. Patient is on Ativan. For catatonia. 03/18/2021: Laying in bed. Eating some. Answering simple questions. Remains on IV Ativan. Patient is medically stable to be transferred to psychiatry floor if the patient is accepted there. Schedule nurse 03/19/2021: Laying in bed. Awake. Has been out of bed for 2 days. at the bedside. Dose of Ativan being cutback by Dr. Carranza from psychiatry. . Eating about 25-50% Review of systems: Was done for constitutional, cardiovascular, GI, pulmonary. relevant finding as above Active Medications Acetaminophen (Acetaminophen Tab 325 Mg Tab) 650 mg PO Q6H PRN PRN Reason: Fever and/ or Pain Last Admin: 03/19/21 09:25 Dose: 650 mg Documented by: Atorvastatin Calcium (Atorvastatin 40 Mg Tab) 40 mg PO HS [facility] Last Admin: 03/18/21 20:22 Dose: 40 mg Documented by: Cephalexin (Cephalexin 250 Mg Cap) 250 mg PO TID [facility] Last Admin: 03/19/21 09:15 Dose: 250 mg Documented by: Cholecalciferol (Cholecalciferol 25 Mcg (1000 Iu) Tablet) 50 mcg PO DAILY [facility] Last Admin: 03/19/21 09:16 Dose: 50 mcg Documented by: Clozapine (Clozapine 100 Mg Tab) 300 mg PO [facility] Stop: 03/22/21 21:01 Last Admin: 03/18/21 07:53 Dose: 300 mg Documented by: Cyanocobalamin (Cyanocobalamin 1,000 Mcg/Ml 1 Ml Vial) 100 mcg IM DAILY [facility] Last Admin: 03/19/21 09:16 Dose: 100 mcg Documented by: Enoxaparin Sodium (Enoxaparin 80 Mg/0.8 Ml Syringe) 80 mg SQ Q12HR [facility] Last Admin: 03/19/21 09:14 Dose: 80 mg Documented by: Fenofibrate (Fenofibrate 160 Mg Tab) 160 mg PO AC-SUPPER [facility] Last Admin: 03/18/21 17:25 Dose: 160 mg Documented by: Folic Acid (Folic Acid 1 Mg Tab) 1 mg PO DAILY [facility] Last Admin: 03/19/21 09:15 Dose: 1 mg Documented by: Haloperidol (Haloperidol 2 Mg Tab) 2 mg PO BID [facility] Dextrose/Sodium Chloride (Dextrose 5%-1/2ns Iv Soln) 1,000 mls @ 150 mls/hr IV .Q6H40M [facility] Last Admin: 03/19/21 11:47 Dose: Not Given Documented by: Isosorbide Mononitrate (Isosorbide Mononitrate Er 30 Mg Tab.Er.24h) 30 mg PO DAILY [facility] Last Admin: 03/19/21 11:47 Dose: 30 mg Documented by: Lacosamide (Lacosamide 50 Mg Tablet) 50 mg PO BID [facility] Last Admin: 03/19/21 11:47 Dose: 50 mg Documented by: Lamotrigine (Lamotrigine 25 Mg Tab) 25 mg PO BID [facility] Last Admin: 03/19/21 09:13 Dose: 25 mg Documented by: Levothyroxine Sodium (Levothyroxine 88 Mcg Tab) 88 mcg PO DAILY@0630 [facility] Last Admin: 03/19/21 05:32 Dose: 88 mcg Documented by: Lorazepam (Lorazepam 1 Mg Tab) 1 mg PO QID PRN PRN Reason: Anxiety/Agitation Lorazepam (Lorazepam 0.5 Mg Tab) 0.5 mg PO Q8HR [facility] Metformin HCl (Metformin 500 Mg Tab) 1,000 mg PO AC-SUPPER [facility] Last Admin: 03/18/21 17:25 Dose: 1,000 mg Documented by: Naloxone HCl (Naloxone 0.4 Mg/Ml 1 Ml Vial) 0.2 mg IV Q2M PRN PRN Reason: Opioid Reversal Ondansetron HCl (Ondansetron 4 Mg/2 Ml Vial) 4 mg IVP Q4HR PRN PRN Reason: Nausea And Vomiting Last Admin: 03/18/21 08:04 Dose: 4 mg Documented by: Polyethylene Glycol (Polyethylene Glycol 3350 17 Gm Powd.Pack) 17 gm PO DAILY PRN PRN Reason: Constipation Past medical history to include: Hypertension, hypothyroid, bipolar disorder, schizophrenia. excessive alcohol use in the past. No smoking. Psychosis, catatonic-like syndrome Social history: Heavy alcohol use in the past. . No smoking. Family history: Patient cannot tell Physical examination: VITAL SIGNS: 99.8, 89, 15, 1:30/72, 94% on room air GENERAL: Reclining in bed, awake, tired EYES: Pupils equal. Conjunctiva normal. HEENT: External appearance of nose and ears normal, oral cavity normal NECK: JVD unable to assess; masses not palpable. HEART: First and second heart sounds are normal; no edema. LUNGS: Respiratory rate normal; clear to auscultation. ABDOMEN: Soft, nontender, liver spleen not palpable, no masses palpable. PSYCH: Answering simple questions. NEUROLOGICAL: [Cranial nerves grossly intact; moving limbs. INVESTIGATIONS, reviewed in the clinical context: March 19: Sodium 153 potassium 3.9 BUN 16 creatinine 1.09 March 17: Sodium 148 BUN 15 creatinine 1.09 Urine culture: E. coli March 15: Sodium 148. 23 creatinine 1.12 WBC 7.4 hemoglobin 13.3 platelets 276 sodium 149 potassium 4.4 BUN 25 creatinine 1.37 AST 120 ALT 52 UA positive for leukoesterase, WBC 6, 70 EKG tracing personally reviewed by me-normal sinus rhythm. 92 Urine drug screen positive for benzodiazepine COVID 19 [PCR]: Not detected Chest x-ray film personally reviewed by me-portable. Increased heart size. No obvious infiltrates Assessment and plan: -hypernatremia, from free water deficit: Worsening Continue D5.45. at 150 mL an hour. - UTI with cystitis from E. coli Keflex -Schizoaffective disorder, bipolar type. Catatonic-like symptoms. Acute flareup: On scheduled Ativan. On Lamictal 25 mg twice a day. Vimpat 50 mg 3 times a day. Lamictal to be titrated up and Vimpat to be titrated down. -Questionable seizure activity.: unLikely EEG negative. Vimpat to be tapered off. -Bipolar disorder -Acute kidney injury, possibly prerenal: Improving IV fluids. Follow function -Diabetes mellitus type 2, on oral hypoglycemic Currently hold oral hypoglycemic. Follow Accu-Cheks -Hypothyroid 88 g Synthroid -Hyperlipidemia Lipitor 40 mg daily at bedtime TriCor 134 mg before supper -Chronic DVT both lower extremity diagnosed on October 19 2020 Eliquis Continue IV fluids. Ativan to be cut back. Other medications being adjusted. Care was discussed with psychiatry, nurse and the at the bedside.
[2021-03-19] MEDS ORDERED: LORazepam 0.5 MG TAB PO SCH (16:00)
[2021-03-19 16:53] LABS: Glucose,Whole Blood 94 mg/dL (75-99)
[2021-03-19] MEDS: metFORMIN 500 MG TAB PO SCH (17:10)
[2021-03-19] MEDS: LORazepam 0.5 MG TAB PO SCH (17:10)
[2021-03-19] MEDS: FENOFIBRATE 160 MG TAB PO SCH (17:10)
[2021-03-19 20:31] LABS: Glucose,Whole Blood 98 mg/dL (75-99)
[2021-03-19] MEDS: cloZAPine 100 MG TAB PO SCH (21:07)
[2021-03-19] MEDS: ATORVASTATIN 40 MG TAB PO SCH (21:07)
--- NOTE | 2021-03-19 21:18 | CONS ---
CONSULTATION DATE OF SERVICE: 03/19/2021. PURPOSE FOR CONSULTATION: Evaluate for increased lesser lethargy possibly related to her psychotropic medications. INTERVAL HISTORY: The patient has continued to have difficulties with her responsiveness. She has had quite a bit of time being either lethargic or sedated. She has been sleeping excessively during the day. She has a complicated psychiatric history with multiple psychiatric hospitalizations. She has been diagnosed with bipolar disorder, schizoaffective disorder, and has had episodes of catatonia. Her current psychotropic medications include Haldol 5 mg twice a day, clozapine 300 mg a day, and Ativan 1 mg three times by IV push. It is noted when she saw Dr. Lima on March 17 she was communicating reasonably well, she was sitting up in bed and paying attention to things going on around her. Her mood was even. She was not showing signs of thought disorder. It is noted that early in this admission she had an apparent seizure and has been evaluated by Neurology, EEG that was limited and not showing any epileptiform activity. Nursing has been reporting that she seems to be sleepy excessively, especially after she receives her Ativan. Today she has been quiet much of the day. She has not had any significant behavior issues. When I saw the patient, she appeared to be sleeping. She was arousable. Her came into the room. She did not make any effort to communicate to myself, the nurse or her . She did not pay attention to things going on around her. She would open her eyes some though mostly just lay on her side. She was able to follow a few basic commands from the nurse who was working with her IV. ASSESSMENT: I will continue the current diagnosis. The patient is showing excessive sedation. It is noted that on admission the patient had her Clozaril reduced from 400 mg a day to 300 mg a day. She apparently has been on Haldol 10 mg twice a day, though on admission it was reduced to 5 mg twice a day. In addition, she has been on Pristiq 100 mg daily and Ativan 1 mg four times a day p.r.n. It is unclear how much Ativan she was taking at home. When I talked to her , he was not clear in regard to dosing. She has been receiving Ativan 1 mg three times a day at present. She currently is off Pristiq. She apparently had been doing fairly well at home until there were some medication adjustments, though there is no information on the specifics of any medication adjustment. At this point I will reduce Ativan to 0.5 mg q.8 hours. It is noted that Ativan is prescribed to treat catatonia, which the patient has struggled with. Whether or not she continues to need Ativan is uncertain. I will reduce Haldol to 2 mg twice a day. In general, it would be preferable to try to work with one of her antipsychotics, namely Clozaril, and possibly ultimately get her off Haldol altogether. A clozapine level should be drawn so that medication adjustments can be guided by blood level. Once she is medically stable, she could benefit from a psychiatric admission for further medication adjustments, given the complicated nature of both her medications and her psychiatric issues. Psychiatry will continue to follow. EDITH / CHITRA: [id number] /
[2021-03-20] MEDS: ACETAMINOPHEN TAB 325 MG TAB PO PRN ×2 (00:10→20:08)
[2021-03-20] MEDS: LORazepam 0.5 MG TAB PO SCH ×4 (00:11→23:38)
[2021-03-20] MEDS: DEXTROSE 5%-0.45% NACL 1,000 ML IV SCH ×4 (03:32→23:38)
[2021-03-20] MEDS: LEVOTHYROXINE 88 MCG TAB PO SCH (05:31)
[2021-03-20 06:49] LABS: African American GFR (CKD) 69 (>60 ml/min/1.73 sqM); Anion Gap 9 mmol/L; Blood Urea Nitrogen 11 mg/dL (7-17); Calcium 9.8 mg/dL (8.4-10.2); Carbon Dioxide 24 mmol/L (22-30); Chloride 117 mmol/L (98-107); Glucose 155 mg/dL (74-99); Non-African American GFR(CKD) 60 (>60 ml/min/1.73 sqM); Potassium 3.8 mmol/L (3.5-5.1); Sodium 150 mmol/L (137-145)
[2021-03-20 07:34] LABS: Glucose,Whole Blood 138 mg/dL (75-99)
[2021-03-20] MEDS: CYANOCOBALAMIN 500 MCG TAB PO SCH (09:58)
[2021-03-20] MEDS: FOLIC ACID 1 MG TAB PO SCH (09:58)
[2021-03-20] MEDS: ISOSORBIDE MONONITRATE ER 30 MG TAB.ER.24H PO SCH (09:58)
[2021-03-20] MEDS: CHOLECALCIFEROL 25 MCG (1000 IU) TABLET PO SCH (09:58)
[2021-03-20] MEDS: LACOSAMIDE 50 MG TABLET PO SCH ×2 (09:58→20:09)
[2021-03-20] MEDS: CEPHALEXIN 250 MG CAP PO SCH ×2 (09:59→16:48)
[2021-03-20] MEDS: ENOXAPARIN 80 MG/0.8 ML SYRINGE SQ SCH (09:59)
[2021-03-20] MEDS: lamoTRIgine 25 MG TAB PO SCH ×2 (09:59→20:10)
[2021-03-20 11:41] LABS: Glucose,Whole Blood 155 mg/dL (75-99)
--- NOTE | 2021-03-20 14:03 | P.PN ---
Progress Note - Text Progress Note Date: 03/20/21 Interval History: Patient was seen resting in bed without any agitated behavior. The patient is currently not endorsing any suicidal or homicidal ideation, intention, and/or plan. She is not reporting any auditory or visual hallucinations. She denies any paranoia or other delusions. She reports she is tolerating her medications well and has been adherent. She is currently alert and oriented in all spheres. She does express weakness and inability appropriately sit up in her bed. She does ex press difficulty in moving her legs but is otherwise not reporting any other somatic symptoms. Collateral information from the patient's [address] confirm that he believes the patient is at baseline psychiatrically. He states the medication changes appear to be beneficial and that she appears to be mentally stable again. Mental Status Exam: General Appearance: Patient appears to be stated age is alert, directable, and cooperative. Hygiene and grooming are fair. Behavior: Patient is calmly seated upright in her bed. Eye contact is improving. Normal psychomotor activity. Speech: Patient's speech is more spontaneous with less delay in speech. Clear and coherent but soft spoken. Mood/Affect: Mood is "okay." Affect is constricted but with overall improved range. Suicidality/Homicidality: Patient denies having any suicidal or homicidal ideation intent or plan. Perceptions: Patient denies any hallucinations today. Though content/process: The patient does not endorse any bizarre or delusional thought content. Memory and concentration: Grossly intact purposes of this session. AAOx3. Judgment and insight: Improving mildly Vital Signs Temp 99.2 F 03/20/21 08:00 Pulse 85 03/20/21 08:00 Resp 16 03/20/21 08:00 BP 133/81 03/20/21 08:00 Pulse Ox 94 L 03/20/21 08:00 Intake & Output 03/19/21 03/20/21 03/20/21 18:59 06:59 18:59 Intake Total 600 Output Total 1850 Balance 600 -1850 Intake: Oral 600 Output: Urine 1850 Other: Voiding Method Incontinent External Catheter External Catheter External Catheter # Voids 4 Assessment Schizophrenia vs Schizoaffective Disorder Hypothyroidism Hypernatremia Plan: -At this time patient DOES NOT meet criteria for inpatient psychiatric admi ssion. Patient is presenting well and not endorsing any criteria for an inpatient psychiatric admission. Confirmed with patient's that she appears to be at baseline. -Delirium precautions recommended with patient including - avoiding use of narcotics and [employer] sedatives, limit anticholinergic medications when possible, frequent re-orientation, minimize use of restraints, open window shades during the day and close them at night -Would recommend the following medication changes/additions: Continue clozaril 300 mg at bedtime for psychosis Continue Haldol 2 mg twice daily for psychosis Continue Lamictal to 25 mg by mouth at twice daily for augmentation of antipsychotic to address treatment resistant psychosis. Continue Ativan 0.5 mg by mouth q8Hr -Recommend outpatient psychiatry and neurology follow-up. -Recommend PT/OT assessment for mobility issues. -Psychiatry will sign off at this point. Patient is cleared psychiatrically for discharge. Thank you for this consult. Please re-consult us or contact us if necessary.
[2021-03-20 16:59] LABS: Glucose,Whole Blood 168 mg/dL (75-99)
[2021-03-20] MEDS: metFORMIN 500 MG TAB PO SCH (17:05)
[2021-03-20] MEDS: ONDANSETRON 4 MG/2 ML VIAL IVP PRN ×2 (17:05→21:56)
[2021-03-20] MEDS: FENOFIBRATE 160 MG TAB PO SCH (17:05)
--- NOTE | 2021-03-20 19:12 | P.PN ---
Progress Note - Text Progress Note Date: 03/20/21 Chief Complaint: Decreased responsiveness History of presenting complaint: This is a 50-year-old patient, who follows with Dr. Saenz . Patient has a known history of bipolar disorder and schizophrenia. Psychosis and catatonic like syndrome patient for 1 days has become rather lethargic. Not communicating. Not feeding herself. Not talking. Prior to that she was talking and getting about. History was given by the to the ER nurse earlier. When I came to see the patient she is awake but looking straight. Not answering any questions. My smile a little bit. No fever or chills reported. No cough reported. Admitted with acute catatonic state. Hypernatremia, acute kidney injury. IV fluids given. 03/15/2021: This morning while Dr. Lima the psychiatrist was seeing the patient the patient had a witnessed seizure activity. Upper body started shaking. She started drooling. Dr. Valentine from neurology was called. EEG was ordered. 2 mg of IV Ativan followed by Depakote 1250 mg once was given. He also ordered Vimpat. Seizure precautions. Patient continues to remains what appears to be catatonic. Awake looking out not following commands 03/16/2021: Patient is getting occasional words. Still somewhat catatonic. Discussed with Dr. Orozco from neurology. Unclear if patient actually had a seizure yesterday. EEG today. Prolonged EEG tomorrow if required. She will adjust medications accordingly. Patient not eating. Patient took her medications 03/17/2021: Patient is far more responsive today. By this evening patient is actually eating smiling having simple conversation. Earlier today discussed with Dr. Orozco from neurology. EEG was done. Negative for seizure. Patient is on Ativan. For catatonia. 03/18/2021: Laying in bed. Eating some. Answering simple questions. Remains on IV Ativan. Patient is medically stable to be transferred to psychiatry floor if the patient is accepted there. Schedule nurse 03/19/2021: Laying in bed. Awake. Has been out of bed for 2 days. at the bedside. Dose of Ativan being cutback by Dr. Carranza from psychiatry. . Eating about 25-50% 03/20/2021: Laying in bed. Awake. Diet. Answering questions. Eating about 50%. Ativan 0.5 mg by mouth every 8. Sodium 150. Confirmed with the nurses at patient is getting her IV fluids. Increase to 200 mL an hour. Review of systems: Was done for constitutional, cardiovascular, GI, pulmonary. relevant finding as above Active Medications Acetaminophen (Acetaminophen Tab 325 Mg Tab) 650 mg PO Q6H PRN PRN Reason: Fever and/ or Pain Last Admin: 03/20/21 00:10 Dose: 650 mg Documented by: Apixaban (Apixaban 5 Mg Tab) 5 mg PO BID [facility]; Protocol Atorvastatin Calcium (Atorvastatin 40 Mg Tab) 40 mg PO HS [facility] Last Admin: 03/19/21 21:07 Dose: 40 mg Documented by: Cephalexin (Cephalexin 250 Mg Cap) 250 mg PO TID [facility] Last Admin: 03/20/21 16:48 Dose: 250 mg Documented by: Cholecalciferol (Cholecalciferol 25 Mcg (1000 Iu) Tablet) 50 mcg PO DAILY [facility] Last Admin: 03/20/21 09:58 Dose: 50 mcg Documented by: Clozapine (Clozapine 100 Mg Tab) 300 mg PO [facility] Stop: 03/22/21 21:01 Last Admin: 03/19/21 21:07 Dose: 300 mg Documented by: Cyanocobalamin (Cyanocobalamin 500 Mcg Tab) 1,000 mcg PO DAILY [facility] Last Admin: 03/20/21 09:58 Dose: 1,000 mcg Documented by: Fenofibrate (Fenofibrate 160 Mg Tab) 160 mg PO AC-SUPPER [facility] Last Admin: 03/20/21 17:05 Dose: 160 mg Documented by: Folic Acid (Folic Acid 1 Mg Tab) 1 mg PO DAILY [facility] Last Admin: 03/20/21 09:58 Dose: 1 mg Documented by: Haloperidol (Haloperidol 2 Mg Tab) 2 mg PO BID [facility] Last Admin: 03/20/21 09:58 Dose: 2 mg Documented by: Dextrose/Sodium Chloride (Dextrose 5%-1/2ns Iv Soln) 1,000 mls @ 200 mls/hr IV .Q5H [facility] Last Admin: 03/20/21 18:27 Dose: Not Given Documented by: Isosorbide Mononitrate (Isosorbide Mononitrate Er 30 Mg Tab.Er.24h) 30 mg PO DAILY [facility] Last Admin: 03/20/21 09:58 Dose: 30 mg Documented by: Lacosamide (Lacosamide 50 Mg Tablet) 50 mg PO BID [facility] Last Admin: 03/20/21 09:58 Dose: 50 mg Documented by: Lamotrigine (Lamotrigine 25 Mg Tab) 25 mg PO BID [facility] Last Admin: 03/20/21 09:59 Dose: 25 mg Documented by: Levothyroxine Sodium (Levothyroxine 88 Mcg Tab) 88 mcg PO DAILY@0630 [facility] Last Admin: 03/20/21 05:31 Dose: 88 mcg Documented by: Lorazepam (Lorazepam 1 Mg Tab) 1 mg PO QID PRN PRN Reason: Anxiety/Agitation Lorazepam (Lorazepam 0.5 Mg Tab) 0.5 mg PO Q8HR [facility] Last Admin: 03/20/21 16:47 Dose: 0.5 mg Documented by: Metformin HCl (Metformin 500 Mg Tab) 1,000 mg PO AC-SUPPER [facility] Last Admin: 03/20/21 17:05 Dose: 1,000 mg Documented by: Naloxone HCl (Naloxone 0.4 Mg/Ml 1 Ml Vial) 0.2 mg IV Q2M PRN PRN Reason: Opioid Reversal Ondansetron HCl (Ondansetron 4 Mg/2 Ml Vial) 4 mg IVP Q4HR PRN PRN Reason: Nausea And Vomiting Last Admin: 03/20/21 17:05 Dose: 4 mg Documented by: Polyethylene Glycol (Polyethylene Glycol 3350 17 Gm Powd.Pack) 17 gm PO DAILY PRN PRN Reason: Constipation Past medical history to include: Hypertension, hypothyroid, bipolar disorder, schizophrenia. excessive alcohol use in the past. No smoking. Psychosis, catatonic-like syndrome Social history: Heavy alcohol use in the past. . No smoking. Family history: Patient cannot tell Physical examination: VITAL SIGNS: 98.6, 92, 15, 1:30/83, 95% room air GENERAL: Reclining in bed, awake, tired EYES: Pupils equal. Conjunctiva normal. HEENT: External appearance of nose and ears normal, oral cavity normal NECK: JVD unable to assess; masses not palpable. HEART: First and second heart sounds are normal; no edema. LUNGS: Respiratory rate normal; clear to auscultation. ABDOMEN: Soft, nontender, liver spleen not palpable, no masses palpable. PSYCH: Answering simple questions. NEUROLOGICAL: [Cranial nerves grossly intact; moving limbs. INVESTIGATIONS, reviewed in the clinical context: March 20: Sodium 150 potassium 3.8 chloride 117 creatinine 1.07 March 19: Sodium 153 potassium 3.9 BUN 16 creatinine 1.09 March 17: Sodium 148 BUN 15 creatinine 1.09 Urine culture: E. coli March 15: Sodium 148. 23 creatinine 1.12 WBC 7.4 hemoglobin 13.3 platelets 276 sodium 149 potassium 4.4 BUN 25 creatinine 1.37 AST 120 ALT 52 UA positive for leukoesterase, WBC 6, 70 EKG tracing personally reviewed by me-normal sinus rhythm. 92 Urine drug screen positive for benzodiazepine COVID 19 [PCR]: Not detected Chest x-ray film personally reviewed by me-portable. Increased heart size. No obvious infiltrates Assessment and plan: -hypernatremia, from free water deficit: Worsening Continue D5.45. Increase fluids to 200 mL an hour. - UTI with cystitis from E. coli Keflex. Completed course -Schizoaffective disorder, bipolar type. Catatonic-like symptoms. Acute flareup: On scheduled Ativan. On Lamictal 25 mg twice a day. Vimpat 50 mg 3 times a day. Lamictal to be titrated up and Vimpat to be titrated down. -Questionable seizure activity.: unLikely EEG negative. Vimpat to be tapered off. -Bipolar disorder -Acute kidney injury, possibly prerenal: Improving IV fluids. Follow function -Diabetes mellitus type 2, on oral hypoglycemic Currently hold oral hypoglycemic. Follow Accu-Cheks -Hypothyroid 88 g Synthroid -Hyperlipidemia Lipitor 40 mg daily at bedtime TriCor 134 mg before supper -Chronic DVT both lower extremity diagnosed on October 19 2020 Eliquis Increase IV fluids to 200 mL hour. Ativan cutback 2.5 mg every 8. Follow with psychiatry. Other medications to continue. DC Keflex
[2021-03-20] MEDS: ATORVASTATIN 40 MG TAB PO SCH (20:08)
[2021-03-20] MEDS: cloZAPine 100 MG TAB PO SCH (20:09)
[2021-03-20] MEDS: APIXABAN 5 MG TAB PO SCH (20:09)
[2021-03-20 21:33] LABS: Glucose,Whole Blood 238 mg/dL (75-99)
[2021-03-21] MEDS: ONDANSETRON 4 MG/2 ML VIAL IVP PRN ×2 (01:31→05:36)
[2021-03-21] MEDS: ACETAMINOPHEN TAB 325 MG TAB PO PRN (01:31)
[2021-03-21] MEDS: DEXTROSE 5%-0.45% NACL 1,000 ML IV SCH ×3 (04:28→18:29)
[2021-03-21] MEDS: LEVOTHYROXINE 88 MCG TAB PO SCH ×2 (05:36→06:35)
[2021-03-21 07:15] LABS: Glucose,Whole Blood 171 mg/dL (75-99)
[2021-03-21 07:34] LABS: African American GFR (CKD) 85 (>60 ml/min/1.73 sqM); Anion Gap 7 mmol/L; Blood Urea Nitrogen 12 mg/dL (7-17); Carbon Dioxide 23 mmol/L (22-30); Chloride 113 mmol/L (98-107); Glucose 200 mg/dL (74-99); Non-African American GFR(CKD) 74 (>60 ml/min/1.73 sqM); Potassium 3.7 mmol/L (3.5-5.1); Sodium 143 mmol/L (137-145)
[2021-03-21] MEDS: CYANOCOBALAMIN 500 MCG TAB PO SCH (08:35)
[2021-03-21] MEDS: CHOLECALCIFEROL 25 MCG (1000 IU) TABLET PO SCH (08:36)
[2021-03-21] MEDS: FOLIC ACID 1 MG TAB PO SCH (08:36)
[2021-03-21] MEDS: LORazepam 0.5 MG TAB PO SCH ×2 (08:39→17:17)
[2021-03-21] MEDS: APIXABAN 5 MG TAB PO SCH ×2 (08:39→22:29)
[2021-03-21] MEDS: ISOSORBIDE MONONITRATE ER 30 MG TAB.ER.24H PO SCH (10:27)
[2021-03-21] MEDS: LACOSAMIDE 50 MG TABLET PO SCH (10:27)
[2021-03-21] MEDS: lamoTRIgine 25 MG TAB PO SCH ×2 (10:29→22:30)
[2021-03-21] MEDS: CALCIUM CARBONATE LIQUID 500 MG/5 ML CUP PO SCH ×3 (10:30→17:18)
[2021-03-21 11:30] LABS: Glucose,Whole Blood 217 mg/dL (75-99)
[2021-03-21 14:45] VITALS: BMI 29.7
--- NOTE | 2021-03-21 15:43 | P.PN ---
Progress Note - Text Progress Note Date: 03/21/21 Chief Complaint: Decreased responsiveness History of presenting complaint: This is a 50-year-old patient, who follows with Dr. Sanez . Patient has a known history of bipolar disorder and schizophrenia. Psychosis and catatonic like syndrome patient for 1 days has become rather lethargic. Not communicating. Not feeding herself. Not talking. Prior to that she was talking and getting about. History was given by the to the ER nurse earlier. When I came to see the patient she is awake but looking straight. Not answering any questions. My smile a little bit. No fever or chills reported. No cough reported. Admitted with acute catatonic state. Hypernatremia, acute kidney injury. IV fluids given. 03/15/2021: This morning while Dr. Lima the psychiatrist was seeing the patient the patient had a witnessed seizure activity. Upper body started shaking. She started drooling. Dr. Valentine from neurology was called. EEG was ordered. 2 mg of IV Ativan followed by Depakote 1250 mg once was given. He also ordered Vimpat. Seizure precautions. Patient continues to remains what appears to be catatonic. Awake looking out not following commands 03/16/2021: Patient is getting occasional words. Still somewhat catatonic. Discussed with Dr. Orozco from neurology. Unclear if patient actually had a seizure yesterday. EEG today. Prolonged EEG tomorrow if required. She will adjust medications accordingly. Patient not eating. Patient took her medications 03/17/2021: Patient is far more responsive today. By this evening patient is actually eating smiling having simple conversation. Earlier today discussed with Dr. Orozco from neurology. EEG was done. Negative for seizure. Patient is on Ativan. For catatonia. 03/18/2021: Laying in bed. Eating some. Answering simple questions. Remains on IV Ativan. Patient is medically stable to be transferred to psychiatry floor if the patient is accepted there. Schedule nurse 03/19/2021: Laying in bed. Awake. Has been out of bed for 2 days. at the bedside. Dose of Ativan being cutback by Dr. Carranza from psychiatry. . Eating about 25-50% 03/20/2021: Laying in bed. Awake. Diet. Answering questions. Eating about 50%. Ativan 0.5 mg by mouth every 8. Sodium 150. Confirmed with the nurses at patient is getting her IV fluids. Increase to 200 mL an hour. 03/21/2021: IV fluids was decreased 200 mL an hour. The PTC late in the day. Discussed with Dr. Lima from psychiatry. Patient to be discharged on current medications. Spoke to patient's family. At the nurse. They'll have a right for the patient tomorrow. Patient be discharged with a current dose of Ativan. And current medications. Vimpat could be discontinued. Patient more awake. Answering questions. Spoke to the social media director. Patient does not qualify for inpatient rehab. Review of systems: Was done for constitutional, cardiovascular, GI, pulmonary. relevant finding as above Active Medications Acetaminophen (Acetaminophen Tab 325 Mg Tab) 650 mg PO Q6H PRN PRN Reason: Fever and/ or Pain Last Admin: 03/21/21 01:31 Dose: 650 mg Documented by: Apixaban (Apixaban 5 Mg Tab) 5 mg PO BID [facility]; Protocol Last Admin: 03/21/21 08:39 Dose: 5 mg Documented by: Atorvastatin Calcium (Atorvastatin 40 Mg Tab) 40 mg PO [facility] Last Admin: 03/20/21 20:08 Dose: 40 mg Documented by: Calcium Carbonate/Glycine (Calcium Carbonate Liquid 500 Mg/5 Ml Cup) 500 mg PO TID-W/MEALS [facility] Last Admin: 03/21/21 12:57 Dose: 500 mg Documented by: Cholecalciferol (Cholecalciferol 25 Mcg (1000 Iu) Tablet) 50 mcg PO DAILY [facility] Last Admin: 03/21/21 08:36 Dose: 50 mcg Documented by: Clozapine (Clozapine 100 Mg Tab) 300 mg PO [facility] Stop: 03/22/21 21:01 Last Admin: 03/20/21 20:09 Dose: 300 mg Documented by: Cyanocobalamin (Cyanocobalamin 500 Mcg Tab) 1,000 mcg PO DAILY [facility] Last Admin: 03/21/21 08:35 Dose: 1,000 mcg Documented by: Fenofibrate (Fenofibrate 160 Mg Tab) 160 mg PO AC-SUPPER [facility] Last Admin: 03/20/21 17:05 Dose: 160 mg Documented by: Folic Acid (Folic Acid 1 Mg Tab) 1 mg PO DAILY [facility] Last Admin: 03/21/21 08:36 Dose: 1 mg Documented by: Haloperidol (Haloperidol 2 Mg Tab) 2 mg PO BID [facility] Last Admin: 03/21/21 10:29 Dose: 2 mg Documented by: Dextrose/Sodium Chloride (Dextrose 5%-1/2ns Iv Soln) 1,000 mls @ 100 mls/hr IV .Q10H [facility] Last Admin: 03/21/21 08:25 Dose: 200 mls/hr Documented by: Isosorbide Mononitrate (Isosorbide Mononitrate Er 30 Mg Tab.Er.24h) 30 mg PO DAILY [facility] Last Admin: 03/21/21 10:27 Dose: 30 mg Documented by: Lamotrigine (Lamotrigine 25 Mg Tab) 25 mg PO BID [facility] Last Admin: 03/21/21 10:29 Dose: 25 mg Documented by: Levothyroxine Sodium (Levothyroxine 88 Mcg Tab) 88 mcg PO DAILY@0630 [facility] Last Admin: 03/21/21 06:35 Dose: 88 mcg Documented by: Lorazepam (Lorazepam 1 Mg Tab) 1 mg PO QID PRN PRN Reason: Anxiety/Agitation Lorazepam (Lorazepam 0.5 Mg Tab) 0.5 mg PO Q8HR [facility] Last Admin: 03/21/21 08:39 Dose: 0.5 mg Documented by: Metformin HCl (Metformin 500 Mg Tab) 1,000 mg PO AC-SUPPER [facility] Last Admin: 03/20/21 17:05 Dose: 1,000 mg Documented by: Ondansetron HCl (Ondansetron 4 Mg/2 Ml Vial) 4 mg IVP Q4HR PRN PRN Reason: Nausea And Vomiting Last Admin: 03/21/21 05:36 Dose: 4 mg Documented by: Polyethylene Glycol (Polyethylene Glycol 3350 17 Gm Powd.Pack) 17 gm PO DAILY PRN PRN Reason: Constipation Last Admin: 03/20/21 20:07 Dose: 17 gm Documented by: Past medical history to include: Hypertension, hypothyroid, bipolar disorder, schizophrenia. excessive alcohol use in the past. No smoking. Psychosis, catatonic-like syndrome Social history: Heavy alcohol use in the past. . No smoking. Family history: Patient cannot tell Physical examination: VITAL SIGNS: 98.3, 86, 18, 1:30/acetaminophen, 94% room air GENERAL: Reclining in bed, awake, EYES: Pupils equal. Conjunctiva normal. HEENT: External appearance of nose and ears normal, oral cavity normal NECK: JVD unable to assess; masses not palpable. HEART: First and second heart sounds are normal; no edema. LUNGS: Respiratory rate normal; clear to auscultation. ABDOMEN: Soft, nontender, liver spleen not palpable, no masses palpable. PSYCH: Answering simple questions. NEUROLOGICAL: [Cranial nerves grossly intact; moving limbs. INVESTIGATIONS, reviewed in the clinical context: March 21: Sodium 143 potassium 3.7 creatinine 0.9 March 20: Sodium 150 potassium 3.8 chloride 117 creatinine 1.07 March 19: Sodium 153 potassium 3.9 BUN 16 creatinine 1.09 March 17: Sodium 148 BUN 15 creatinine 1.09 Urine culture: E. coli March 15: Sodium 148. 23 creatinine 1.12 WBC 7.4 hemoglobin 13.3 platelets 276 sodium 149 potassium 4.4 BUN 25 creatinine 1.37 AST 120 ALT 52 UA positive for leukoesterase, WBC 6, 70 EKG tracing personally reviewed by me-normal sinus rhythm. 92 Urine drug screen positive for benzodiazepine COVID 19 [PCR]: Not detected Chest x-ray film personally reviewed by me-portable. Increased heart size. No obvious infiltrates Assessment and plan: -hypernatremia, from free water deficit: Better Continue D5.45. DC IV fluids later today. - UTI with cystitis from E. coli Keflex. Completed course -Schizoaffective disorder, bipolar type. Catatonic-like symptoms. Acute flareup: 0.5 mg 3 times a day Ativan. On Lamictal 25 mg twice a day. . Continue Lamictal. DC Vimpat. -Questionable seizure activity.: unLikely EEG negative. Vimpat to be discontinued -Bipolar disorder -Acute kidney injury, possibly prerenal: Improving IV fluids. Follow function -Diabetes mellitus type 2, on oral hypoglycemic Currently hold oral hypoglycemic. Follow Accu-Cheks -Hypothyroid 88 g Synthroid -Hyperlipidemia Lipitor 40 mg daily at bedtime TriCor 134 mg before supper -Chronic DVT both lower extremity diagnosed on October 19 2020 Eliquis DC IV fluids later today. Ativan 0.5 mg 3 times a day. DC Vimpat. Total time spent today about 50 minutes with over 25 minutes of discussion. DC home tomorrow.
--- NOTE | 2021-03-21 16:03 | P.PN ---
Subjective Progress Note Date: 03/21/21 Neurological follow-up. Patient is neatly seen by Dr. Breezy Orozco. Neurologically patient was signed off. Primary physician recommended neurological reevaluation for AED. Patient is a 50-year-old female with history of psych disorder, came with seizure-like activity. EEG was negative. Patient was on Vimpat. Dr. Orozco had recommended to switch from Vimpat to Lamictal. Apparently patient is still on Vimpat 50 mg twice a day and Lamictal 25 mg twice a day. No further seizures reported. Objective - Vital Signs Vital signs: Vital Signs Temp 98.3 F 03/21/21 08:00 Pulse 86 03/21/21 08:00 Resp 18 03/21/21 08:00 BP 135/89 03/21/21 08:00 Pulse Ox 94 L 03/21/21 08:00 Intake & Output 03/20/21 03/21/21 03/21/21 18:59 06:59 18:59 Intake Total 1000 Output Total 1500 1980 Balance -1500 -1979 1000 Weight 86.183 kg Intake: Intake, IV Titration 1000 Amount Dextrose 5%-0.45% NaCl 1, 1000 000 ml @ 100 mls/hr IV . Q10H [facility]IS[facility] Rx#:[id number] Output: Urine 1500 1979 Other: Voiding Method External Catheter External Catheter External Catheter # Bowel Movements 0 - Exam Patient is a middle aged female, in no acute distress. Patient had flat affect. Patient is alert awake oriented to time place and person. Patient knows her date of . She states that it is February and the year is 2020. She knows she is in [facility] in [place], fall season and name of the current president. Speech and language functions are normal. Attention, concentration and fund of knowledge appears intact although detailed testing deferred. On cranial examination, pupils are round and reacting to light, visual welch are full on confrontation, extraocular muscles are intact with no nystagmus. Face is symmetric, tongue protrudes to the midline. Palatal elevation and sensation normal, hearing and shoulder shrug normal, facial sensation normal. Shoulder shrug normal. On muscle strength testing, there is no pronator drift and the strength is normal in arms and legs distally and proximally. Deep tendon reflexes are 2+ all over, plantars are flat bilaterally. Sensory to touch is equal with no neglect. Cerebellar function showed no ataxia for [id number] testing. Tone and bulk of muscles normal. Gait not checked. On general examination, Abdomen is soft nontender. Chest is clear. - Labs CBC & Chem 7: 03/14/21 14:06 03/21/21 06:03 Labs: Abnormal Lab Results - Last 24 Hours (Table) 03/20/21 03/20/21 03/21/21 Range/Units 16:48 21:31 06:03 Chloride 113 H (98-107) mmol/L Glucose 200 H (74-99) mg/dL POC Glucose (mg/dL) 168 H 238 H (75-99) mg/dL 03/21/21 03/21/21 Range/Units 07:14 11:28 Chloride (98-107) mmol/L Glucose (74-99) mg/dL POC Glucose (mg/dL) 171 H 217 H (75-99) mg/dL Assessment and Plan Assessment: * Possible Seizure (Has ?GTC seizure-like activity on 03/15/2021 lasting 30 seconds and witnessed by psychiatrist): Her possible underlying UTI lowers threshold for seizure and her electrolyte imbalance (both routine EEG and 2 1/2 hour EEG negative for seizure or epileptiform activity) * Also the patient has a component of altered mental status due to metabolic encephalopathy and medication effect ---mentation improving * History of seizure about 5-7 years ago (staring episode according to the ) * Acute kidney insufficiency, now resolved. * Mild elevated liver function test * Hypernatremia, now resolved. Sodium 143. * Schizoaffective versus schizophrenia with catatonia * Diabetes mellitus, A1c 5.4 on 10/10/2020. * Hypothyroidism * Morbid obesity Plan: * Patient continues to be on Vimpat 50 mg 1 tablet twice a day and Lamictal 25 mg twice a day. (not initiated on Depakote because of her elevated liver function test and not Keppra because of her significant psychiatric problems). Dr. Orozco had recommended to increase Lamictal to 50 mg twice a day, and to taper off the Vimpat. However patient is still the same regimen as before. I spoke to patient's primary physician. Psychiatry is apparently wants to adjust the medications as an outpatient. Therefore neurologically clear. * We will defer IM to hypothyroidism. * Upon discharge the patient needs to follow-up with her neurologist within 2 weeks. Patient would like to see a second opinion and recommended Dr. Indio Alberts (over at [facility]). Consider Epilepsy Monitoring Unit (EMU) as outpatient if patient has any staring spells or seizure-like activity to capture events and determine whether she has true epileptic episodes. * Vitamin B12: 281 and serum folate is 8.0. On B12 and folate replacement. WORK-UP: * Urinalysis seem possible suggestive of urinary tract infection. * AST is 120 and ALT of 52 * Ammonia level is less than 9. * Toxicology screen is positive for benzodiazepine. * Routine EEG on 03/16/2021 is abnormal. The slowing suggestive of moderate encephalopathy. There are no focal slowing, epileptiform discharges or seizure on the EEG. * 2 and 1/2 hour EEG on 03/17/2021: Reported as limited study, predominantly sleep EEG. No clinical or electrographic seizures were recorded. No epileptiform activity was present. During the rare periods of maximal alertness, intermittent diffuse theta range slowing was seen which is not epileptiform in nature. These findings suggest moderate diffuse cerebral dysfunction as may be seen in a toxic metabolic encephalopathy. * MRI of the brain that was done on 03/17/2021 is reported as there is motion, limitation on exam. Nonspecific white matter demyelination of questionable clinical significance. In the body of report is reported that the patient has postcontrast images demonstrated no abnormal enhancement. I personally reviewed the MRI the brain and there is no lesions on the postcontrast. As well as no lesions that stood out for me that seems significant on FLAIR.
[2021-03-21 16:43] LABS: Basophils % (A) 0 %; Eosinophils % (A) 0 %; HGB 12.5 gm/dL (11.4-16.0); Lymphocytes % (A) 11 %; MCH 29.1 pg (25.0-35.0); MCHC 31.9 g/dL (31.0-37.0); MCV 91.2 fL (80.0-100.0); Mean Platelet Volume 8.8; Monocytes # (A) 0.6 k/uL (0-1.0); Monocytes % (A) 6 %; Neutrophils # (A) 7.5 k/uL (1.3-7.7); Neutrophils % (A) 82 %; Platelet Count 218 k/uL (150-450); RBC 4.28 m/uL (3.80-5.40); RDW 13.5 % (11.5-15.5); WBC 9.2 k/uL (3.8-10.6)
[2021-03-21 16:59] LABS: Glucose,Whole Blood 183 mg/dL (75-99)
[2021-03-21] MEDS: metFORMIN 500 MG TAB PO SCH (17:17)
[2021-03-21] MEDS: FENOFIBRATE 160 MG TAB PO SCH (17:18)
[2021-03-21 20:08] LABS: Glucose,Whole Blood 111 mg/dL (75-99)
[2021-03-21] MEDS: cloZAPine 100 MG TAB PO SCH (22:29)
[2021-03-21] MEDS: ATORVASTATIN 40 MG TAB PO SCH (22:29)
[2021-03-22] MEDS: LORazepam 0.5 MG TAB PO SCH ×2 (00:34→08:53)
[2021-03-22] MEDS: DEXTROSE 5%-0.45% NACL 1,000 ML IV SCH ×2 (00:35→09:01)
[2021-03-22] MEDS: ACETAMINOPHEN TAB 325 MG TAB PO PRN (01:50)
[2021-03-22] MEDS: ONDANSETRON 4 MG/2 ML VIAL IVP PRN (02:01)
[2021-03-22] MEDS: LEVOTHYROXINE 88 MCG TAB PO SCH (05:59)
[2021-03-22 06:53] LABS: Glucose,Whole Blood 174 mg/dL (75-99)
[2021-03-22] MEDS: CALCIUM CARBONATE LIQUID 500 MG/5 ML CUP PO SCH ×2 (08:53→12:47)
[2021-03-22] MEDS: APIXABAN 5 MG TAB PO SCH (08:54)
[2021-03-22] MEDS: CHOLECALCIFEROL 25 MCG (1000 IU) TABLET PO SCH (08:56)
[2021-03-22] MEDS: CYANOCOBALAMIN 500 MCG TAB PO SCH (08:56)
[2021-03-22] MEDS: FOLIC ACID 1 MG TAB PO SCH (08:57)
[2021-03-22] MEDS: ISOSORBIDE MONONITRATE ER 30 MG TAB.ER.24H PO SCH (08:58)
[2021-03-22] MEDS: lamoTRIgine 25 MG TAB PO SCH (08:58)
[2021-03-22 11:35] LABS: Glucose,Whole Blood 237 mg/dL (75-99)
--- NOTE | 2021-03-22 13:07 | P.CRDCN ---
History of Present Illness History of present illness: HISTORY OF PRESENTING ILLNESS This is a pleasant 50-year-old female past medical history significant for hypertension, dyslipidemia, type 2 diabetes, bipolar, schizophrenia, chronic DVT (on Eliquis), hypothyroidism. 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 We have been asked to see in consultation for chest pain. Patient presents to the emergency department on 03/14/2021 with altered mental status, lethargic, not feeding herself. She was admitted for acute catatonic state, hypernatremia and acute kidney injury. Yesterday, patient experienced nausea and vomiting. Afterwards she had midsternal burning pain. This pain was non-radiating, non- exertional. She had no associated shortness of breath, lightheadedness, dizziness, diaphoresis. Her pain is exacerbated by eating and with palpation to the midsternal area. She has no kown history of coronary artery disease, NE, or stroke. She denies family history of coronary artery disease. She denies chest pain on exam. She is alert, oriented to person, she knows she is in [place], she is unsure of the name of the hospital, she states it is the year 2019. Neurology is following for possible seizure-like activity on 03/15/2021 lasting 30 seconds and witnessed by psychiatrist DIAGNOSTICS EKG reveals sinus rhythm, heart rate 93, right axis deviation, nonspecific STT wave abnormalities, prolonged QTc, prior EKG in October 2020 with similar findings. Chest xray cardiomegaly, expiratory rotated, probable basilar atelectasis. Laboratory reviewed, CBC unremarkable, troponin negative 1 Current medications include Imdur 30 mg daily, atorvastatin 40 mg nightly, Eliquis 5 mg twice a day, metformin, Clozaril, Synthroid, Lamictal, Haldol, Ativan REVIEW OF SYSTEMS At the time of my exam: CONSTITUTIONAL: Denies fever or chills. CARDIOVASCULAR: +burning chest pain, Denies shortness of breath, orthopnea, PND or palpitations. RESPIRATORY: Denies cough. GASTROINTESTINAL: Denies abdominal pain, diarrhea, constipation, nausea or vomiting. MUSCULOSKELETAL: Denies myalgias. NEUROLOGIC: Denies numbness, tingling, headacbe or weakness. ENDOCRINE: Denies fatigue, weight change, polydipsia or polyurina. GENITOURINARY: Denies burning, hematuria or urgency with micturation. HEMATOLOGIC: Denies history of anemia or bleeding. PHYSICAL EXAMINATION Blood pressure 111/77, heart 60, afebrile maintaining saturations greater than 92% on room air CONSTITUTIONAL: No apparent distress. HEENT: Head is normocephalic. Pupils are equal, round. Sclerae anicteric. Mucous membranes of the mouth are moist. No JVD. No carotid bruit. CHEST EXAMINATION: Lungs are clear to auscultation. Chest wall tenderness is noted on palpation midsternal region HEART EXAMINATION: Regular rate and rhythm. S1, S2 heard. No murmurs, gallops or rub. ABDOMEN: Soft, nontender. Positive bowel sounds. EXTREMITIES: 2+ peripheral pulses, no lower extremity edema and no calf tenderness. NEUROLOGIC EXAMINATION: Patient is awake, alert and oriented x1-2 ASSESSMENT Chest pain, atypical, most likely GI etiology Altered mental status, Neurology following for possible seizure History of hypertension Dyslipidemia History of type 2 diabetes Bipolar Schizophrenia Chronic DVT on Eliquis Hypothyroidism Acute kidney injury, resolved Hypernatremia, resolved Morbid Obesity BMI 29.8 PLAN We will obtain 2D echocardiogram From a cardiology perspective, if no acute findings on Echocardiogram we will follow the patient as needed. Please reach out with any further questions or concerns Nurse Practitioner note has been reviewed, I agree with a documented findings a nd plan of care. Patient was seen and examined. Past Medical History Past Medical History: Diabetes Mellitus, Hypertension, Thyroid Disorder Additional Past Medical History / Comment(s): hx obtained from . Pt unable to answer History of Any Multi-Drug Resistant Organisms: None Reported Past Surgical History: Appendectomy, Cholecystectomy, Tubal Ligation Additional Past Surgical History / Comment(s): tubal 03/2003 Past Anesthesia/Blood Transfusion Reactions: No Reported Reaction Past Psychological History: Bipolar, Depression Additional Psychological History / Comment(s): inpt history [facility] 6years ago, [facility] 2 wks ago. Smoking Status: Former smoker Past Alcohol Use History: Heavy Additional Past Alcohol Use History / Comment(s): Pt denied current or recent use but was unable to state how long since last use. Past Drug Use History: Marijuana Additional Drug Use History / Comment(s): Pt stated she abused caffeine pills at some point after stopping alcohol use. - Past Family History Mother Family Medical History: Cancer Father Family Medical History: Myocardial Infarction (NE) Medications and Allergies Home Medications Medication Instructions Recorded Confirmed Type Cook Sta-3 Acid Ethyl Esters [Lovaza] 2 gm PO BID@0900,1800 10/09/20 03/14/21 History Cholecalciferol [Vitamin D3 (25 50 mcg PO DAILY 10/10/20 03/14/21 History Mcg = 1000 Iu)] Isosorbide Mononitrate ER [Imdur] 30 mg PO DAILY 30 Days tab.er.24h 10/21/20 03/14/21 Rx Acetaminophen Tab [Tylenol] 650 mg PO Q6H PRN 03/14/21 03/14/21 History Apixaban [Eliquis] 5 mg PO BID 03/14/21 03/14/21 History Atorvastatin Calcium [Lipitor] 40 mg PO HS 03/14/21 03/14/21 History Fenofibrate,Micronized 134 mg PO AC-SUPPER 03/14/21 03/14/21 History [Fenofibrate] LORazepam [Ativan] 1 mg PO QID PRN 03/14/21 03/14/21 History Levothyroxine Sodium [Synthroid] 88 mcg PO DAILY 03/14/21 03/14/21 History cloZAPine [Clozaril] 300 mg PO HS 03/14/21 03/14/21 History metFORMIN HCL ER [Glucophage XR] 1,000 mg PO AC-SUPPER 03/14/21 03/14/21 History polyethylene glycoL 3350 [Miralax] 17 gm PO DAILY PRN 03/14/21 03/14/21 History Cyanocobalamin [Vitamin B-12] 1,000 mcg PO DAILY #60 tab 03/21/21 Rx Folic Acid 1 mg PO DAILY #30 tab 03/21/21 Rx LORazepam [Ativan] 0.5 mg PO Q8HR #90 tab 03/21/21 Rx cloZAPine [Clozaril] 300 mg PO HS tab 03/21/21 Rx haloperidoL [Haldol] 2 mg PO BID #60 tab 03/21/21 Rx lamoTRIgine [LaMICtal] 25 mg PO BID #60 tab 03/21/21 Rx Allergies Allergy/AdvReac Type Severity Reaction Status Date / Time cefuroxime axetil Allergy Rash/Hives Verified 03/14/21 15:39 [From Ceftin] Penicillins Allergy Rash/Hives Verified 03/14/21 15:39 thioridazine AdvReac muscle Verified 03/14/21 15:39 stiffness Physical Exam Vitals: Vital Signs Temp Pulse Resp BP Pulse Ox 03/22/21 08:00 98.8 F 62 16 111/77 95 03/22/21 01:27 98.3 F 91 118/82 93 L 03/21/21 19:55 98.8 F 92 106/75 94 L 03/21/21 14:00 98.4 F 74 16 117/78 96 Intake and Output 03/21/21 03/22/21 03/22/21 22:59 06:59 14:59 Intake Total 900 Output Total 1999 2029 Balance -1099 -2029 Intake: Intake, IV Titration 900 Amount Dextrose 5%-0.45% NaCl 1, 900 000 ml @ 100 mls/hr IV . Q10H [facility] Rx#:[id number] Output: Urine 1999 2029 Other: Voiding Method External Catheter # Bowel Movements 0 Results 03/21/21 16:09 03/21/21 06:03 Cardiac Enzymes 03/22/21 Range/Units 03:34 Troponin I <0.012 (0.000-0.034) ng/mL CBC 03/21/21 Range/Units 16:09 WBC 9.2 (3.8-10.6) k/uL RBC 4.28 (3.80-5.40) m/uL Hgb 12.5 (11.4-16.0) gm/dL Hct 39.0 (34.0-46.0) % Plt Count 218 (150-450) k/uL Current Medications Generic Name Dose Route Start Last Admin Trade Name Freq PRN Reason Stop Dose Admin Acetaminophen 650 mg 03/14/21 17:27 03/22/21 01:50 Acetaminophen Tab 325 Mg Tab PO 650 mg Q6H PRN Administration Fever and/ or Pain Apixaban 5 mg 03/20/21 21:00 03/21/21 22:29 Apixaban 5 Mg Tab PO 5 mg BID DENISSE Administration Protocol Atorvastatin Calcium 40 mg 03/14/21 21:00 03/21/21 22:29 Atorvastatin 40 Mg Tab PO 40 mg HS DENISSE Administration Calcium Carbonate/Glycine 500 mg 03/21/21 09:30 03/21/21 17:18 Calcium Carbonate Liquid 500 Mg/5 Ml Cup PO 500 mg TID-W/MEALS DENISSE Administration Cholecalciferol 50 mcg 03/15/21 09:00 03/21/21 08:36 Cholecalciferol 25 Mcg (1000 Iu) Tablet PO 50 mcg DAILY DENISSE Administration Clozapine 300 mg 03/14/21 21:00 03/21/21 22:29 Clozapine 100 Mg Tab PO 03/22/21 21:01 300 mg HS DENISSE Administration Cyanocobalamin 1,000 mcg 03/20/21 09:00 03/21/21 08:35 Cyanocobalamin 500 Mcg Tab PO 1,000 mcg DAILY DENISSE Administration Fenofibrate 160 mg 03/15/21 17:30 03/21/21 17:18 Fenofibrate 160 Mg Tab PO 160 mg AC-SUPPER DENISSE Administration Folic Acid 1 mg 03/19/21 09:00 03/21/21 08:36 Folic Acid 1 Mg Tab PO 1 mg DAILY DENISSE Administration Haloperidol 2 mg 03/19/21 21:00 03/21/21 22:29 Haloperidol 2 Mg Tab PO 2 mg BID DENISSE Administration Dextrose/Sodium Chloride 1,000 mls @ 100 mls/hr 03/14/21 21:15 03/22/21 00:35 Dextrose 5%-1/2ns Iv Soln IV 100 mls/hr .Q10H DENISSE Administration Isosorbide Mononitrate 30 mg 03/15/21 09:00 03/21/21 10:27 Isosorbide Mononitrate Er 30 Mg Tab.Er.24h PO 30 mg DAILY DENISSE Administration Lamotrigine 25 mg 03/17/21 21:00 03/21/21 22:30 Lamotrigine 25 Mg Tab PO 25 mg BID DENISSE Administration Levothyroxine Sodium 88 mcg 03/19/21 06:30 03/22/21 05:59 Levothyroxine 88 Mcg Tab PO 88 mcg DAILY@0630 DENISSE Administration Lorazepam 1 mg 03/14/21 20:58 Lorazepam 1 Mg Tab PO QID PRN Anxiety/Agitation Lorazepam 0.5 mg 03/19/21 16:00 03/22/21 00:34 Lorazepam 0.5 Mg Tab PO 0.5 mg Q8HR DENISSE Administration Metformin HCl 1,000 mg 03/14/21 17:30 03/21/21 17:17 Metformin 500 Mg Tab PO 1,000 mg AC-SUPPER DENISSE Administration Ondansetron HCl 4 mg 03/17/21 22:59 03/22/21 02:01 Ondansetron 4 Mg/2 Ml Vial IVP 4 mg Q4HR PRN Administration Nausea And Vomiting Polyethylene Glycol 17 gm 03/14/21 17:27 03/20/21 20:07 Polyethylene Glycol 3350 17 Gm Powd.Pack PO 17 gm DAILY PRN Administration Constipation Intake and Output 03/21/21 03/22/21 03/22/21 22:59 06:59 14:59 Intake Total 900 Output Total 1999 2029 Balance -1099 -2029 Intake: Intake, IV Titration 900 Amount Dextrose 5%-0.45% NaCl 1, 900 000 ml @ 100 mls/hr IV . Q10H [facility] Rx#:[id number] Output: Urine 1999 2029 Other: Voiding Method External Catheter # Bowel Movements 0 03/21/21 16:09 03/21/21 06:03
--- NOTE | 2021-03-22 14:15 | P.PN ---
Subjective Progress Note Date: 03/22/21 03/22/2021: Patient's [id number] was also present today. Patient is doing much better. She just perked up about an hour ago. Now she is fully alert and awake. Patient on her [id number] do not offer any complaints. 03/21/2021: Patient initially seen by Dr. Breezy Orozco. Neurologically patient was signed off. Primary physician recommended neurological reevaluation for AED. Patient is a 50-year-old female with history of psych disorder, came with seizure-like activity. EEG was negative. Patient was on Vimpat. Dr. Orozco had recommended to switch from Vimpat to Lamictal. Apparently patient is still on Vimpat 50 mg twice a day and Lamictal 25 mg twice a day. No further seizures reported. Objective - Vital Signs Vital signs: Vital Signs Temp 98.8 F 03/22/21 08:00 Pulse 62 03/22/21 08:00 Resp 16 03/22/21 08:00 BP 111/77 03/22/21 08:00 Pulse Ox 95 03/22/21 08:00 Intake & Output 03/21/21 03/22/21 03/22/21 18:59 06:59 18:59 Intake Total 1900 Output Total 1999 2029 Balance -100 -2029 Weight 86.183 kg Intake: Intake, IV Titration 1900 Amount Dextrose 5%-0.45% NaCl 1, 1900 000 ml @ 100 mls/hr IV . Q10H [facility] Rx#:[id number] Output: Urine 1999 2029 Other: Voiding Method External Catheter External Catheter # Bowel Movements 0 - Exam Patient is a middle aged female, in no acute distress. Patient affect appears more animated. More alert and awake. Patient is alert awake oriented to time place and person. Patient knows her date of . She states that it is February and the year is 2020. She knows she is in [facility] in [place], fall season and name of the current president. Speech and language functions are normal. Attention, concentration and fund of knowledge appears intact although detailed testing deferred. On cranial examination, pupils are round and reacting to light, visual welch are full on confrontation, extraocular muscles are intact with no nystagmus. Face is symmetric, tongue protrudes to the midline. Palatal elevation and sensation normal, hearing and shoulder shrug normal, facial sensation normal. Shoulder shrug normal. On muscle strength testing, there is no pronator drift and the strength is normal in arms and legs distally and proximally, except hip flexion which appears slightly weak about 4+5-bilaterally. Deep tendon reflexes are 2+ all over, plantars are flat bilaterally. Sensory to touch is equal with no neglect. Cerebellar function showed no ataxia for [id number] testing. Tone and bulk of muscles normal. Gait not checked. On general examination, Abdomen is soft nontender. Chest is clear. - Labs CBC & Chem 7: 03/21/21 16:09 03/21/21 06:03 Labs: Abnormal Lab Results - Last 24 Hours (Table) 03/21/21 03/21/21 03/22/21 Range/Units 16:53 20:00 06:52 POC Glucose (mg/dL) 183 H 111 H 174 H (75-99) mg/dL 03/22/21 Range/Units 11:33 POC Glucose (mg/dL) 237 H (75-99) mg/dL Assessment and Plan Assessment: * Possible Seizure (Has ?GTC seizure-like activity on 03/15/2021 lasting 30 seconds and witnessed by psychiatrist): Her possible underlying UTI lowers threshold for seizure and her electrolyte imbalance (both routine EEG and 2 1/2 hour EEG negative for seizure or epileptiform activity) * Also the patient has a component of altered mental status due to metabolic encephalopathy and medication effect ---mentation improving * History of seizure about 5-7 years ago (staring episode according to the ) * Acute kidney insufficiency, now resolved. * Mild elevated liver function test * Hypernatremia, now resolved. Sodium 143. * Schizoaffective versus schizophrenia with catatonia * Diabetes mellitus, A1c 5.4 on 10/10/2020. * Hypothyroidism * Morbid obesity Plan: * Patient now off Vimpat. Patient only on Lamictal 25 mg twice a day. May increase the dose as tolerated. Psychiatry managing the dose. (Patient was not initiated on Depakote because of her elevated liver function test and not Keppra because of her significant psychiatric problems). Neurologically clear. * We will defer IM to hypothyroidism. * Upon discharge the patient needs to follow-up with her neurologist within 2 weeks. Patient would like to see a second opinion and recommended Dr. Indio Alberts (over at [facility]). Consider Epilepsy Monitoring Unit (EMU) as outpatient if patient has any staring spells or seizure-like activity to capture events and determine whether she has true epileptic episodes. * Vitamin B12: 281 and serum folate is 8.0. On B12 and folate replacement. WORK-UP: * Urinalysis seem possible suggestive of urinary tract infection. * AST is 120 and ALT of 52 * Ammonia level is less than 9. * Toxicology screen is positive for benzodiazepine. * Routine EEG on 03/16/2021 is abnormal. The slowing suggestive of moderate encephalopathy. There are no focal slowing, epileptiform discharges or seizure on the EEG. * 2 and 1/2 hour EEG on 03/17/2021: Reported as limited study, predominantly sleep EEG. No clinical or electrographic seizures were recorded. No epileptiform activity was present. During the rare periods of maximal alertness, intermittent diffuse theta range slowing was seen which is not epileptiform in nature. These findings suggest moderate diffuse cerebral dy sfunction as may be seen in a toxic metabolic encephalopathy. * MRI of the brain that was done on 03/17/2021 is reported as there is motion, limitation on exam. Nonspecific white matter demyelination of questionable clinical significance. In the body of report is reported that the patient has postcontrast images demonstrated no abnormal enhancement. I personally reviewed the MRI the brain and there is no lesions on the postcontrast. As well as no lesions that stood out for me that seems significant on FLAIR.
[2021-03-22 15:18] VITALS: BP 107/71; PULSE 88; RESP 17; TEMP 98.9
--- NOTE | 2021-03-22 21:06 | P.DS ---
Providers Date of admission: 03/14/21 17:26 Expected date of discharge: 03/22/21 Attending physician: Dakota Carrasco Consults: 03/14/21 19:18 Consult Physician Routine Consulting Provider: Bhavin Lima Consult Reason/Comments: brian [facility] Do you want consulting provider notified?: Yes 03/15/21 12:35 Consult Physician Routine Consulting Provider: Breezy Orozco Consult Reason/Comments: Seizure Do you want consulting provider notified?: Yes Consult Physician Routine Consulting Provider: Breezy Orozco Consult Reason/Comments: seizure Do you want consulting provider notified?: Yes 03/22/21 02:18 Consult Physician Routine Consulting Provider: Anuj Her Consult Reason/Comments: c/o chest pain Do you want consulting provider notified?: Yes, Notify in am Primary care physician: Giuseppe Saenz Assessment: Chief Complaint: Decreased responsiveness History of presenting complaint: This is a 50-year-old patient, who follows with Dr. Saenz . Patient has a known history of bipolar disorder and schizophrenia. Psychosis and catatonic like syndrome patient for 1 days has become rather lethargic. Not communicating. Not feeding herself. Not talking. Prior to that she was talking and getting about. History was given by the to the ER nurse earlier. When I came to see the patient she is awake but looking straight. Not answering any questions. My smile a little bit. No fever or chills reported. No cough reported. Admitted with acute catatonic state. Hypernatremia, acute kidney injury. IV fluids given. 03/15/2021: This morning while Dr. Lima the psychiatrist was seeing the patient the patient had a witnessed seizure activity. Upper body started shaking. She started drooling. Dr. Valentine from neurology was called. EEG was ordered. 2 mg of IV Ativan followed by Depakote 1250 mg once was given. He also ordered Vimpat. Seizure precautions. Patient continues to remains what appears to be catatonic. Awake looking out not following commands 03/16/2021: Patient is getting occasional words. Still somewhat catatonic. Discussed with Dr. Orozco from neurology. Unclear if patient actually had a seizure yesterday. EEG today. Prolonged EEG tomorrow if required. She will adjust medications accordingly. Patient not eating. Patient took her medications 03/17/2021: Patient is far more responsive today. By this evening patient is actually eating smiling having simple conversation. Earlier today discussed with Dr. Orozco from neurology. EEG was done. Negative for seizure. Patient is on Ativan. For catatonia. 03/18/2021: Laying in bed. Eating some. Answering simple questions. Remains on IV Ativan. Patient is medically stable to be transferred to psychiatry floor if the patient is accepted there. Schedule nurse 03/19/2021: Laying in bed. Awake. Has been out of bed for 2 days. at the bedside. Dose of Ativan being cutback by Dr. Carranza from psychiatry. . Eating about 25-50% 03/20/2021: Laying in bed. Awake. Diet. Answering questions. Eating about 50%. Ativan 0.5 mg by mouth every 8. Sodium 150. Confirmed with the nurses at patient is getting her IV fluids. Increase to 200 mL an hour. 03/21/2021: IV fluids was decreased 200 mL an hour. The PTC late in the day. Discussed with Dr. Lima from psychiatry. Patient to be discharged on current medications. Spoke to patient's family. At the nurse. They'll have a right for the patient tomorrow. Patient be discharged with a current dose of Ativan. And current medications. Vimpat could be discontinued. Patient more awake. Answering questions. Spoke to the high school social science teacher. Patient does not qualify for inpatient rehab. 03/22/2021: Spoke sto patient's sister , also the POA at the bedside. She will talk to child welfare caseworker what other options. She is concerned about her going home. manager of [employer] is already looking into home health. Otherwise patient stable. Tolerating a diet. Consultation: Neurology Dr. Lima from psychiatry Past medical history to include: Hypertension, hypothyroid, bipolar disorder, schizophrenia. excessive alcohol use in the past. No smoking. Psychosis, catatonic-like syndrome Social history: Heavy alcohol use in the past. . No smoking. Family history: Patient cannot tell Physical examination: VITAL SIGNS: 98.9, 88, 17, 1 10 x 71, percent room air GENERAL: Reclining in bed, awake, EYES: Pupils equal. Conjunctiva normal. HEENT: External appearance of nose and ears normal, oral cavity normal NECK: JVD unable to assess; masses not palpable. HEART: First and second heart sounds are normal; no edema. LUNGS: Respiratory rate normal; clear to auscultation. ABDOMEN: Soft, nontender, liver spleen not palpable, no masses palpable. PSYCH: Answering simple questions. NEUROLOGICAL: [Cranial nerves grossly intact; moving limbs. INVESTIGATIONS, reviewed in the clinical context: March 21: Sodium 143 potassium 3.7 creatinine 0.9 March 20: Sodium 150 potassium 3.8 chloride 117 creatinine 1.07 March 19: Sodium 153 potassium 3.9 BUN 16 creatinine 1.09 March 17: Sodium 148 BUN 15 creatinine 1.09 Urine culture: E. coli March 15: Sodium 148. 23 creatinine 1.12 WBC 7.4 hemoglobin 13.3 platelets 276 sodium 149 potassium 4.4 BUN 25 creatinine 1.37 AST 120 ALT 52 UA positive for leukoesterase, WBC 6, 70 EKG tracing personally reviewed by me-normal sinus rhythm. 92 Urine drug screen positive for benzodiazepine COVID 19 [PCR]: Not detected Chest x-ray film personally reviewed by me-portable. Increased heart size. No obvious infiltrates Assessment and plan: -hypernatremia, from free water deficit: Improved Received IV fluids - UTI with cystitis from E. coli Keflex. Completed course -Schizoaffective disorder, bipolar type. Catatonic-like symptoms. Acute flareup: 0.5 mg 3 times a day Ativan. On Lamictal 25 mg twice a day. . Continue Lamictal. DC Vimpat. -Questionable seizure activity.: unLikely EEG negative. Vimpat to be discontinued -Bipolar disorder -Acute kidney injury, possibly prerenal: Improving IV fluids. -Diabetes mellitus type 2, on oral hypoglycemic oral hypoglycemic. Follow Accu-Cheks -Hypothyroid 88 g Synthroid -Hyperlipidemia Lipitor 40 mg daily at bedtime TriCor 134 mg before supper -Chronic DVT both lower extremity diagnosed on October 19 2020 Eliquis Disposition: Home Patient Condition at Discharge: Fair Plan - Discharge Summary Discharge Rx Participant: No New Discharge Prescriptions: New LORazepam [Ativan] 0.5 mg PO Q8HR #90 tab cloZAPine [Clozaril] 300 mg PO HS tab haloperidoL [Haldol] 2 mg PO BID #60 tab lamoTRIgine [LaMICtal] 25 mg PO BID #60 tab Cyanocobalamin [Vitamin B-12] 1,000 mcg PO DAILY #60 tab Folic Acid 1 mg PO DAILY #30 tab Continue [place]-3 Acid Ethyl Esters [Lovaza] 2 gm PO BID@0900,1800 Isosorbide Mononitrate ER [Imdur] 30 mg PO DAILY 30 Days tab.er.24h cloZAPine [Clozaril] 300 mg PO HS Fenofibrate,Micronized [Fenofibrate] 134 mg PO AC-SUPPER Levothyroxine Sodium [Synthroid] 88 mcg PO DAILY LORazepam [Ativan] 1 mg PO QID PRN PRN Reason: Anxiety/Agitation polyethylene glycoL 3350 [Miralax] 17 gm PO DAILY PRN PRN Reason: Constipation Acetaminophen Tab [Tylenol] 650 mg PO Q6H PRN PRN Reason: Fever And/ Or Pain Cholecalciferol [Vitamin D3 (25 Mcg = 1000 Iu)] 50 mcg PO DAILY Apixaban [Eliquis] 5 mg PO BID Atorvastatin Calcium [Lipitor] 40 mg PO HS metFORMIN HCL ER [Glucophage XR] 1,000 mg PO AC-SUPPER Discontinued Desvenlafaxine [Pristiq ER] 100 mg PO DAILY haloperidoL [Haldol] 5 mg PO BID cloZAPine [Clozaril] 25 mg PO BID@0900,1800 Discharge Medication List [place]-3 Acid Ethyl Esters [Lovaza] 2 gm PO BID@0900,1800 10/09/20 [History] Cholecalciferol [Vitamin D3 (25 Mcg = 1000 Iu)] 50 mcg PO DAILY 10/10/20 [History] Isosorbide Mononitrate ER [Imdur] 30 mg PO DAILY 30 Days tab.er.24h 10/21/20 [Rx] Acetaminophen Tab [Tylenol] 650 mg PO Q6H PRN 03/14/21 [History] Apixaban [Eliquis] 5 mg PO BID 03/14/21 [History] Atorvastatin Calcium [Lipitor] 40 mg PO HS 03/14/21 [History] Fenofibrate,Micronized [Fenofibrate] 134 mg PO AC-SUPPER 03/14/21 [History] LORazepam [Ativan] 1 mg PO QID PRN 03/14/21 [History] Levothyroxine Sodium [Synthroid] 88 mcg PO DAILY 03/14/21 [History] cloZAPine [Clozaril] 300 mg PO HS 03/14/21 [History] metFORMIN HCL ER [Glucophage XR] 1,000 mg PO AC-SUPPER 03/14/21 [History] polyethylene glycoL 3350 [Miralax] 17 gm PO DAILY PRN 03/14/21 [History] Cyanocobalamin [Vitamin B-12] 1,000 mcg PO DAILY #60 tab 03/21/21 [Rx] Folic Acid 1 mg PO DAILY #30 tab 03/21/21 [Rx] LORazepam [Ativan] 0.5 mg PO Q8HR #90 tab 03/21/21 [Rx] cloZAPine [Clozaril] 300 mg PO HS tab 03/21/21 [Rx] haloperidoL [Haldol] 2 mg PO BID #60 tab 03/21/21 [Rx] lamoTRIgine [LaMICtal] 25 mg PO BID #60 tab 03/21/21 [Rx] Follow up Appointment(s)/Referral(s): psychiatristdr [Other] - 2 [facility], [NON-STAFF] - Giuseppe Saenz MD [Primary Care Provider] - 03/23/21 1:45 pm Patient Instructions/Handouts: Epilepsy (DC), Altered Mental Status (GEN) Discharge Disposition: TRANSFER TO SNF/ECF
--- NOTE | 2021-03-23 10:13 | ECHOF ---
Referral Reason:LV function MEASUREMENTS -------- HEIGHT: 170.2 cm WEIGHT: 86.2 kg BP: 111/77 RVIDd: 3.0 cm (< 3.3) IVSd: 1.3 cm (0.6 - 1.1) LVIDd: 4.0 cm (3.9 - 5.3) LVPWd: 1.3 cm (0.6 - 1.1) IVSs: 1.8 cm LVIDs: 2.7 cm LVPWs: 2.1 cm LA Diam: 2.6 cm (2.7 - 3.8) Ao Diam: 3.2 cm (2.0 - 3.7) AV Cusp: 2.4 cm (1.5 - 2.6) MV EXCURSION: 15.965 mm (> 18.000) MV EF SLOPE: 56 mm/s (70 - 150) EPSS: 0.2 cm MV E Kiran: 0.68 m/s MV DecT: 278 ms MV A Kiran: 0.78 m/s MV E/A Ratio: 0.87 FINDINGS -------- Sinus rhythm. This was a technically difficult study with suboptimal views. The left ventricular size is normal. There is mild concentric left ventricular hypertrophy. Overa ll left ventricular systolic function is normal with, an EF between 60 - 65 %. The right ventricle is normal in size. The left atrium is normal in size. The right atrium was not well visualized. 5 ml of Lumason was utilized for enhancement of images. The aortic valve was not well visualized. The mitral valve is normal. The tricuspid valve was not well visualized. Trace/mild (physiologic) pulmonic regurgitation. The aortic root size is normal. Normal inferior vena cava with normal inspiratory collapse consistent with estimated right atrial pre ssure of 5 mmHg. There is no pericardial effusion. CONCLUSIONS -------- 1. This was a technically difficult study with suboptimal views. 2. The left ventricular size is normal. 3. There is mild concentric left ventricular hypertrophy. 4. Overall left ventricular systolic function is normal with, an EF between 60 - 65 %. 5. 5 ml of Lumason was utilized for enhancement of images. 6. Trace/mild (physiologic) pulmonic regurgitation. 7. There is no pericardial effusion. [facility] ATTENDANT: Sabine Lara RDCS
== END 2021-03-22 15:49 | DRG 885 ==
LOC: EC 12:56 → 4SSUR 17:26
PROVIDERS: ADMIT Hospitalist; ATTEND Hospitalist
DX: F20.2 Catatonic schizophrenia (principal); G93.41 Metabolic encephalopathy; E87.0 Hyperosmolality and hypernatremia; N17.9 Acute kidney failure, unspecified; I82.503 Chronic embolism and thrombosis of unspecified deep veins of lower extremity, bilateral; N30.90 Cystitis, unspecified without hematuria; R53.83 Other fatigue; I10 Essential (primary) hypertension; E03.9 Hypothyroidism, unspecified; E11.649 Type 2 diabetes mellitus with hypoglycemia without coma; E78.5 Hyperlipidemia, unspecified; Z79.899 Other long term (current) drug therapy; Z79.01 Long term (current) use of anticoagulants; Z79.890 Hormone replacement therapy; Z79.84 Long term (current) use of oral hypoglycemic drugs; Z87.891 Personal history of nicotine dependence; B96.20 Unspecified Escherichia coli [E. coli] as the cause of diseases classified elsewhere; E66.01 Morbid (severe) obesity due to excess calories; G62.9 Polyneuropathy, unspecified; R26.2 Difficulty in walking, not elsewhere classified; R56.9 Unspecified convulsions; Z20.822 Contact with and (suspected) exposure to COVID-19; Z88.0 Allergy status to penicillin; Z82.49 Family history of ischemic heart disease and other diseases of the circulatory system; Z68.29 Body mass index [BMI] 29.0-29.9, adult
CPT/HCPCS: 36415; 70450; 70553; 71045; 80048; 80053; 80306; 81001; 82140; 82330; 82607; 82746; 83735; 84439; 84443; 84484; 85025; 85610; 85730; 87077; 87086; 87186; 87635; 93005; 93306; 95816; 95819; 99285

== ENCOUNTER 2021-06-14 16:06 | Inpatient (IN) | payer MEDICARE, OTHER ==
[2021-06-14] MEDS ORDERED: SODIUM CHLORIDE 0.9% 1,000 ML IV STA (16:24)
--- NOTE | 2021-06-14 16:24 | ED ---
General Adult HPI - General Chief complaint: Urogenital Stated complaint: AKF Time Seen by Provider: 06/14/21 16:08 Source: EMS Mode of arrival: EMS Limitations: language barrier, altered mental status, physical limitation - History of Present Illness Initial comments: Dictation was produced using [employer] dictation software. please excuse any gramma tical, word or spelling errors. Chief Complaint: 50-year-old female presents to the emergency department for abnormal outpatient labs History of Present Illness: Patient is a 50-year-old female she was brought in by EMS from [facility] in [place]. Patient is nonverbal. She is at baseline alert and oriented 1-2 out of 4. She supposedly had blood work that resulted today that showed abnormalities. Patient's sodium was allegedly 170 and creatinine was elevated at 2.3 today. They initially tried to transfer patient to [place] emergency department however they bypassed and brought her here. Patient unable to provide history of present illness. There is a packet that says what her labs were from today and a brief sense of why she was sent to the emergency department from [facility]. Unable to obtain review of systems secondary to mental status PHYSICAL EXAM: General Impression: Alert and oriented x1/4, not in acute distress HEENT: Normocephalic atraumatic, extra-ocular movements intact, pupils equal and reactive to light bilaterally, mucous membranes moist. Cardiovascular: Heart regular rate and rhythm Chest: Able to complete full sentences, no retractions, no tachypnea Abdomen: abdomen soft, non-tender, non-distended, no organomegaly Musculoskeletal: Pulses present and equal in all extremities, no peripheral edema Motor: no focal deficits noted Neurological: CN II-XII grossly intact, no focal motor or sensory deficits noted Skin: Intact with no visualized rashes Psych: Normal affect and mood ED course: 50-year-old female sent to the emergency department from [facility] in [place] for hypernatremia, acute kidney injury and dehydration. Vital signs upon arrival are within acceptable limits. Laboratory evaluation obtained. CBC normal level. Metabolic panel shows sodium of 173, chloride of 134. Bicarb 21 with a gap of 18. Creatinine 2.3 with a BUN 57. Baseline creatinine is normal. Patient's hypernatremia likely secondary to water loss from poor oral intake. Patient given IV fluids started on normal saline. Patient be admitted to Dr. Carrasco. EKG interpretation: Ventricular rate 91, normal sinus rhythm, WY interval 140, QRS 82, QTC 452. No WY prolongation, no QTC prolongation, no ST or T-wave changes noted. EKG compared to 03/13/2021 showing no changes. Overall, this EKG is unremarkable - Related Data Home Medications Medication Instructions Recorded Confirmed [place]-3 Acid Ethyl Esters [Lovaza] 2 gm PO BID@0900,1800 10/09/20 03/14/21 Cholecalciferol [Vitamin D3 (25 50 mcg PO DAILY 10/10/20 03/14/21 Mcg = 1000 Iu)] Acetaminophen Tab [Tylenol] 650 mg PO Q6H PRN 03/14/21 03/14/21 Apixaban [Eliquis] 5 mg PO BID 03/14/21 03/14/21 Atorvastatin Calcium [Lipitor] 40 mg PO HS 03/14/21 03/14/21 Fenofibrate,Micronized 134 mg PO AC-SUPPER 03/14/21 03/14/21 [Fenofibrate] LORazepam [Ativan] 1 mg PO QID PRN 03/14/21 03/14/21 Levothyroxine Sodium [Synthroid] 88 mcg PO DAILY 03/14/21 03/14/21 cloZAPine [Clozaril] 300 mg PO HS 03/14/21 03/14/21 metFORMIN HCL ER [Glucophage XR] 1,000 mg PO AC-SUPPER 03/14/21 03/14/21 polyethylene glycoL 3350 [Miralax] 17 gm PO DAILY PRN 03/14/21 03/14/21 Previous Rx's Medication Instructions Recorded Isosorbide Mononitrate ER [Imdur] 30 mg PO DAILY 30 Days tab.er.24h 10/21/20 Cyanocobalamin [Vitamin B-12] 1,000 mcg PO DAILY #60 tab 03/21/21 Folic Acid 1 mg PO DAILY #30 tab 03/21/21 LORazepam [Ativan] 0.5 mg PO Q8HR #90 tab 03/21/21 cloZAPine [Clozaril] 300 mg PO HS tab 03/21/21 haloperidoL [Haldol] 2 mg PO BID #60 tab 03/21/21 lamoTRIgine [LaMICtal] 25 mg PO BID #60 tab 03/21/21 Allergies Allergy/AdvReac Type Severity Reaction Status Date / Time cefuroxime axetil Allergy Rash/Hives Verified 06/14/21 17:15 [From Ceftin] Penicillins Allergy Rash/Hives Verified 06/14/21 17:15 thioridazine AdvReac muscle Verified 06/14/21 17:15 stiffness Review of Systems ROS Statement: Those systems with pertinent positive or pertinent negative responses have been documented in the HPI. ROS Other: All systems not noted in ROS Statement are negative. Past Medical History Past Medical History: Diabetes Mellitus, Hypertension, Thyroid Disorder Additional Past Medical History / Comment(s): hx obtained from . Pt unable to answer History of Any Multi-Drug Resistant Organisms: None Reported Past Surgical History: Appendectomy, Cholecystectomy, Tubal Ligation Additional Past Surgical History / Comment(s): tubal 03/2003 Past Anesthesia/Blood Transfusion Reactions: No Reported Reaction Past Psychological History: Bipolar, Depression Smoking Status: Former smoker Past Alcohol Use History: Heavy Past Drug Use History: Marijuana - Past Family History Mother Family Medical History: Cancer Father Family Medical History: Myocardial Infarction ([place]) General Exam Limitations: language barrier, altered mental status, physical limitation Course Vital Signs 06/14/21 16:08 Temperature 98.8 F Pulse Rate 65 Respiratory 16 Rate Blood Pressure 103/77 O2 Sat by Pulse 95 Oximetry Medical Decision Making - Lab Data Result diagrams: 06/14/21 16:50 06/14/21 16:50 Lab Results 06/14/21 06/14/21 06/14/21 Range/Units 16:50 16:50 16:50 WBC 10.8 H (3.8-10.6) k/uL RBC 5.28 (3.80-5.40) m/uL Hgb 15.6 (11.4-16.0) gm/dL Hct 50.2 H (34.0-46.0) % MCV 95.1 (80.0-100.0) fL MCH 29.6 (25.0-35.0) pg MCHC 31.1 (31.0-37.0) g/dL RDW 15.0 (11.5-15.5) % Plt Count 278 (150-450) k/uL MPV 9.8 Neutrophils % 80 % Lymphocytes % 14 % Monocytes % 4 % Eosinophils % 0 % Basophils % 0 % Neutrophils # 8.6 H (1.3-7.7) k/uL Lymphocytes # 1.5 (1.0-4.8) k/uL Monocytes # 0.5 (0-1.0) k/uL Eosinophils # 0.0 (0-0.7) k/uL Basophils # 0.0 (0-0.2) k/uL Hypochromasia Marked Sodium 173 H* (137-145) mmol/L Potassium 3.8 (3.5-5.1) mmol/L Chloride 134 H* (98-107) mmol/L Carbon Dioxide 21 L (22-30) mmol/L Anion Gap 18 mmol/L BUN 57 H (7-17) mg/dL Creatinine 2.38 H (0.52-1.04) mg/dL Est GFR (CKD-EPI)AfAm 26 (>60 ml/min/1.73 sqM) Est GFR (CKD-EPI)NonAf 23 (>60 ml/min/1.73 sqM) Glucose 118 H (74-99) mg/dL Plasma Lactic Acid Jed 2.0 (0.7-2.0) mmol/L Calcium 10.3 H (8.4-10.2) mg/dL Magnesium 2.9 H (1.6-2.3) mg/dL Total Bilirubin 1.1 (0.2-1.3) mg/dL AST 27 (14-36) U/L ALT 24 (4-34) U/L Alkaline Phosphatase 90 (38-126) U/L Total Protein 7.6 (6.3-8.2) g/dL Albumin 4.6 (3.5-5.0) g/dL Urine Color Urine Appearance (Clear) Urine pH (5.0-8.0) Ur Specific [place] (1.001-1.035) Urine Protein (Negative) Urine Glucose (UA) (Negative) Urine Ketones (Negative) Urine Blood (Negative) Urine Nitrite (Negative) Urine Bilirubin (Negative) Urine Urobilinogen (<2.0) mg/dL Ur Leukocyte Esterase (Negative) 06/14/21 Range/Units 17:08 WBC (3.8-10.6) k/uL RBC (3.80-5.40) m/uL Hgb (11.4-16.0) gm/dL Hct (34.0-46.0) % MCV (80.0-100.0) fL MCH (25.0-35.0) pg MCHC (31.0-37.0) g/dL RDW (11.5-15.5) % Plt Count (150-450) k/uL MPV Neutrophils % % Lymphocytes % % Monocytes % % Eosinophils % % Basophils % % Neutrophils # (1.3-7.7) k/uL Lymphocytes # (1.0-4.8) k/uL Monocytes # (0-1.0) k/uL Eosinophils # (0-0.7) k/uL Basophils # (0-0.2) k/uL Hypochromasia Sodium (137-145) mmol/L Potassium (3.5-5.1) mmol/L Chloride (98-107) mmol/L Carbon Dioxide (22-30) mmol/L Anion Gap mmol/L BUN (7-17) mg/dL Creatinine (0.52-1.04) mg/dL Est GFR (CKD-EPI)AfAm (>60 ml/min/1.73 sqM) Est GFR (CKD-EPI)NonAf (>60 ml/min/1.73 sqM) Glucose (74-99) mg/dL Plasma Lactic Acid Jed (0.7-2.0) mmol/L Calcium (8.4-10.2) mg/dL Magnesium (1.6-2.3) mg/dL Total Bilirubin (0.2-1.3) mg/dL AST (14-36) U/L ALT (4-34) U/L Alkaline Phosphatase (38-126) U/L Total Protein (6.3-8.2) g/dL Albumin (3.5-5.0) g/dL Urine Color Yellow Urine Appearance Clear (Clear) Urine pH 5.5 (5.0-8.0) Ur Specific [place] 1.019 (1.001-1.035) Urine Protein Trace H (Negative) Urine Glucose (UA) Negative (Negative) Urine Ketones Negative (Negative) Urine Blood Negative (Negative) Urine Nitrite Negative (Negative) Urine Bilirubin Negative (Negative) Urine Urobilinogen 2.0 (<2.0) mg/dL Ur Leukocyte Esterase Negative (Negative) Disposition Clinical Impression: Hypernatremia, JAYLA (acute kidney injury) Disposition: ADMITTED IP TO THIS HOSP Condition: Fair Is patient prescribed a controlled substance at d/c from ED?: No Referrals: Giuseppe Saenz MD [Primary Care Provider] - 1-2 days
[2021-06-14 16:54] LABS: Basophils % (A) 0 %; Eosinophils % (A) 0 %; HCT 50.2 % (34.0-46.0); HGB 15.6 gm/dL (11.4-16.0); Hypochromasia Marked; Lymphocytes # (A) 1.5 k/uL (1.0-4.8); Lymphocytes % (A) 14 %; MCH 29.6 pg (25.0-35.0); MCHC 31.1 g/dL (31.0-37.0); MCV 95.1 fL (80.0-100.0); Mean Platelet Volume 9.8; Monocytes # (A) 0.5 k/uL (0-1.0); Monocytes % (A) 4 %; Neutrophils # (A) 8.6 k/uL (1.3-7.7); Neutrophils % (A) 80 %; Platelet Count 278 k/uL (150-450); RBC 5.28 m/uL (3.80-5.40); WBC 10.8 k/uL (3.8-10.6)
[2021-06-14 17:06] LABS: Albumin 4.6 g/dL (3.5-5.0); Calcium 10.3 mg/dL (8.4-10.2); Magnesium 2.9 mg/dL (1.6-2.3); Potassium 3.8 mmol/L (3.5-5.1); Total Bilirubin 1.1 mg/dL (0.2-1.3); Total Protein 7.6 g/dL (6.3-8.2)
[2021-06-14] MEDS ORDERED: NALOXONE 0.4 MG/ML 1 ML VIAL IV PRN (17:21)
[2021-06-14 17:22] LABS: Appearance,Urine Clear (Clear); Bilirubin,Urine Negative (Negative); Blood,Urine Negative (Negative); Color,Urine Yellow; Glucose,Urine (UA) Negative (Negative); Ketones,Urine Negative (Negative); Leukocyte Esterase,Urine Negative (Negative); Nitrite,Urine Negative (Negative); PH, Urine 5.5 (5.0-8.0); Protein,Urine Trace (Negative); Specific Gravity,Urine 1.019 (1.001-1.035)
[2021-06-14] MEDS ORDERED: SODIUM CHLORIDE 0.9% 1,000 ML IV SCH (17:30)
[2021-06-14] MEDS ORDERED: ACETAMINOPHEN TAB 325 MG TAB PO PRN (19:48)
[2021-06-14] MEDS ORDERED: haloperidoL 5 MG TAB PO PRN (19:48)
[2021-06-14] MEDS ORDERED: LORazepam 1 MG TAB PO PRN (19:48)
[2021-06-14] MEDS ORDERED: HALOPERIDOL LACTATE 5 MG/ML 1 ML VIAL IM PRN (19:48)
[2021-06-14] MEDS ORDERED: MELATONIN 3 MG TABLET PO PRN (19:51)
[2021-06-14] MEDS ORDERED: CALCIUM CARBONATE 500 MG CHEWABLE PO PRN (19:51)
[2021-06-14] MEDS ORDERED: LACTULOSE 20 GM/30 ML CUP PO PRN (19:51)
[2021-06-14] MEDS ORDERED: ONDANSETRON 4 MG/2 ML VIAL IVP PRN (19:51)
--- NOTE | 2021-06-14 20:02 | P.HPIM ---
History of Present Illness H&P Date: 06/14/21 Chief Complaint: Abnormal labs History of presenting complaint: This is a 50-year-old patient, who follows with Dr. Saenz . known history of bipolar disorder and schizophrenia. 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 At [facility] state. Had responded well to Ativan treatment. Patient brought in from [facility]. Decreased responsiveness. Labs showed elevated sodium. Sodium is 173 with a chloride of 134. Also creatinine is up to 2.38. Patient rather delirious. Lethargic. Not able to give much of a history. Rest of the history as obtained per the ER physician. See the documentation. Patient started on IV fluids. Review of systems cannot be obtained patient is lethargic Past medical history to include: Hypertension, hypothyroid, bipolar disorder, schizophrenia. excessive alcohol use in the past. No smoking. Psychosis, catatonic-like syndrome Social history: Heavy alcohol use in the past. . No smoking. Currently at [facility] Family history: Patient cannot tell Physical examination: VITAL SIGNS: 98.8, 65, 16, 103/77, 95% room air GENERAL: BMI 31.6, lethargic, laying in bed. EYES: Pupils equal. Conjunctiva normal. HEENT: External appearance of nose and ears normal, oral cavity dry. NECK: JVD unable to assess; masses not palpable. HEART: First and second heart sounds are normal; no edema. LUNGS: Respiratory rate normal; clear to auscultation. ABDOMEN: Soft, nontender, liver spleen not palpable, no masses palpable. PSYCH: [Lethargic, unable to assess. MUSCULOSKELETAL:No Clubbing/cyanosis;muscles-grossly intact NEUROLOGICAL: [Cranial nerves grossly intact; no facial asymmetry, patient lethargic.. LYMPHATICS: No lymph nodes palpable in the axilla and neck INVESTIGATIONS, reviewed in the clinical context: White count 10.8 hemoglobin 15.6 platelets 278 sodium 173 potassium 3.8 chloride 134 BUN 57 creatinine 2.38 potassium 10.3 UA showing trace protein EKG tracing personally reviewed by me-normal sinus rhythm. Unclear baseline Previous labs reviewed: March 2021: BUN 12 creatinine 0.9 Assessment and plan: -Severe hypernatremia, from free water deficit: D5.45 at 1 50 mL an hour -Acute metabolic encephalopathy from renal failure and delirium Follow clinically -Schizoaffective disorder, bipolar type. Clozaril 100 mg by mouth daily at bedtime Lamictal 25 mg twice a day Ativan 1 mg by mouth every 8 when necessary Haldol 5 mg by mouth twice a day when necessary -Bipolar disorder See above medications -Acute kidney injury, possibly prerenal: IV fluids -Diabetes mellitus type 2, on oral hypoglycemic Hold metformin Follow Accu-Cheks -Hypothyroid 88 g Synthroid -Hyperlipidemia Lipitor 40 mg daily at bedtime TriCor 134 mg before supper -Chronic DVT both lower extremity diagnosed on October 19 2020 Eliquis D5.4 0.150 mL hour. Follow electrolytes. Fall precautions. Aspiration precaution. Consult psychiatry. Given the complexity and severity of patient's condition expect the patient to be in the hospital at least for 2 overnights Past Medical History Past Medical History: Diabetes Mellitus, Hypertension, Thyroid Disorder Additional Past Medical History / Comment(s): hx obtained from . Pt unable to answer History of Any Multi-Drug Resistant Organisms: None Reported Past Surgical History: Appendectomy, Cholecystectomy, Tubal Ligation Additional Past Surgical History / Comment(s): tubal 03/2003 Past Anesthesia/Blood Transfusion Reactions: No Reported Reaction Past Psychological History: Bipolar, Depression Smoking Status: Former smoker Past Alcohol Use History: Heavy Past Drug Use History: Marijuana - Past Family History Mother Family Medical History: Cancer Father Family Medical History: Myocardial Infarction ([place]) Medications and Allergies Home Medications Medication Instructions Recorded Confirmed Type Cholecalciferol [Vitamin D3 (25 50 mcg PO DAILY@0900 10/10/20 06/14/21 History Mcg = 1000 Iu)] Acetaminophen Tab [Tylenol] 650 mg PO Q6H PRN 03/14/21 06/14/21 History Apixaban [Eliquis] 5 mg PO BID@0900,2100 03/14/21 06/14/21 History Atorvastatin Calcium [Lipitor] 40 mg PO HS@209903/14/21 06/14/21 History Fenofibrate,Micronized 134 mg PO HS@2100 03/14/21 06/14/21 History [Fenofibrate] LORazepam [Ativan] 1 mg PO Q8H PRN 03/14/21 06/14/21 History Levothyroxine Sodium [Synthroid] 88 mcg PO DAILY@0600 03/14/21 06/14/21 History polyethylene glycoL 3350 [Miralax] 17 gm PO DAILY@0900 03/14/21 06/14/21 History Bisacodyl 10 mg PO Q48H PRN 06/14/21 06/14/21 History Cyanocobalamin (Vitamin B-12) 1,000 mcg PO DAILY@0900 06/14/21 06/14/21 History [Vitamin B-12] Folic Acid 1 mg PO DAILY@0900 06/14/21 06/14/21 History Haldol Solution 5mg/Ml 5 mg IV Q12H PRN 06/14/21 06/14/21 History House Supplement 120 ml PO TID@0900,1300,2100 06/14/21 06/14/21 History Isosorbide Mononitrate ER [Imdur] 30 mg PO DAILY@0900 06/14/21 06/14/21 History Bernice-3 Fatty Acids [Bernice-3] 1,000 mg PO BID@0900,2100 06/14/21 06/14/21 History bisacodyL [Dulcolax] 10 mg RECTAL DAILY PRN 06/14/21 06/14/21 History cloZAPine [Clozaril] 100 mg PO HS@2100 06/14/21 06/14/21 History haloperidoL [Haloperidol] 5 mg PO BID PRN 06/14/21 06/14/21 History lamoTRIgine [LaMICtal] 25 mg PO BID@0900,2100 06/14/21 06/14/21 History metFORMIN HCL [Glucophage] 1,000 mg PO DAILY@1700 06/14/21 06/14/21 History Allergies Allergy/AdvReac Type Severity Reaction Status Date / Time cefuroxime axetil Allergy Rash/Hives Verified 06/14/21 17:15 [From Ceftin] Penicillins Allergy Rash/Hives Verified 06/14/21 17:15 thioridazine AdvReac muscle Verified 06/14/21 17:15 stiffness Physical Exam Vitals: Vital Signs Temp Pulse Resp BP Pulse Ox 06/14/21 16:08 98.8 F 65 16 103/77 95 Intake and Output 06/14/21 06/14/21 06/14/21 06:59 14:59 22:59 Other: Voiding Method Diaper Incontinent Weight 99.79 kg Results CBC & Chem 7: 06/14/21 16:50 06/14/21 16:50 Labs: Abnormal Lab Results - Last 24 Hours (Table) 06/14/21 06/14/21 06/14/21 Range/Units 16:50 16:50 17:08 WBC 10.8 H (3.8-10.6) k/uL Hct 50.2 H (34.0-46.0) % Neutrophils # 8.6 H (1.3-7.7) k/uL Sodium 173 H* (137-145) mmol/L Chloride 134 H* (98-107) mmol/L Carbon Dioxide 21 L (22-30) mmol/L BUN 57 H (7-17) mg/dL Creatinine 2.38 H (0.52-1.04) mg/dL Glucose 118 H (74-99) mg/dL Calcium 10.3 H (8.4-10.2) mg/dL Magnesium 2.9 H (1.6-2.3) mg/dL Urine Protein Trace H (Negative)
[2021-06-14] MEDS ORDERED: APIXABAN 5 MG TAB PO SCH (21:00)
[2021-06-14] MEDS: DEXTROSE 5%-0.45% NACL 1,000 ML IV SCH (21:37)
[2021-06-14] MEDS: FENOFIBRATE 160 MG TAB PO SCH (22:23)
[2021-06-14] MEDS: cloZAPine 100 MG TAB PO SCH (22:23)
[2021-06-14] MEDS: ATORVASTATIN 40 MG TAB PO SCH (22:23)
[2021-06-14] MEDS: lamoTRIgine 25 MG TAB PO SCH (22:24)
[2021-06-14] MEDS: ENOXAPARIN 100 MG/ML SYRINGE SQ SCH (22:56)
[2021-06-14 23:00] LABS: Glucose,Whole Blood 160 mg/dL (75-99)
[2021-06-15] MEDS: DEXTROSE 5%-0.45% NACL 1,000 ML IV SCH ×3 (04:41→17:13)
[2021-06-15] MEDS ORDERED: LEVOTHYROXINE 88 MCG TAB PO SCH (06:00)
[2021-06-15 06:06] LABS: Glucose,Whole Blood 168 mg/dL (75-99)
[2021-06-15] MEDS: ENOXAPARIN 100 MG/ML SYRINGE SQ SCH ×2 (08:08→20:48)
[2021-06-15] MEDS: ISOSORBIDE MONONITRATE ER 30 MG TAB.ER.24H PO SCH (08:09)
[2021-06-15] MEDS: CYANOCOBALAMIN 500 MCG TAB PO SCH (08:09)
[2021-06-15] MEDS: lamoTRIgine 25 MG TAB PO SCH ×2 (08:10→22:30)
[2021-06-15 11:52] LABS: Glucose,Whole Blood 115 mg/dL (75-99)
[2021-06-15 12:52] LABS: Albumin 3.3 g/dL (3.5-5.0); Calcium 9.4 mg/dL (8.4-10.2); Potassium 3.3 mmol/L (3.5-5.1); Total Bilirubin 0.7 mg/dL (0.2-1.3); Total Protein 5.8 g/dL (6.3-8.2)
--- NOTE | 2021-06-15 14:24 | P.HP ---
Psychiatric H&P - . H&P Date: 06/15/21 History & Physical: Allergies Allergy/AdvReac Type Severity Reaction Status Date / Time cefuroxime axetil Allergy Rash/Hives Verified 06/14/21 17:15 [From Ceftin] Penicillins Allergy Rash/Hives Verified 06/14/21 17:15 thioridazine AdvReac muscle Verified 06/14/21 17:15 stiffness Vital Signs Temp 98.2 F 06/15/21 08:00 Pulse 98 06/15/21 12:00 Resp 16 06/15/21 14:00 BP 138/50 06/15/21 12:00 Pulse Ox 96 06/15/21 12:00 Intake & Output 06/14/21 06/15/21 06/15/21 18:59 06:59 18:59 Output Total 650 Balance -650 Weight 99.79 kg 99.79 kg Output: Urine 650 Other: Voiding Method Diaper Indwelling Catheter Indwelling Catheter Incontinent Laboratory Last Values WBC 10.8 k/uL (3.8-10.6) H 06/14/21 16:50 RBC 5.28 m/uL (3.80-5.40) 06/14/21 16:50 Hgb 15.6 gm/dL (11.4-16.0) 06/14/21 16:50 Hct 50.2 % (34.0-46.0) H 06/14/21 16:50 MCV 95.1 fL (80.0-100.0) 06/14/21 16:50 MCH 29.6 pg (25.0-35.0) 06/14/21 16:50 MCHC 31.1 g/dL (31.0-37.0) 06/14/21 16:50 RDW 15.0 % (11.5-15.5) 06/14/21 16:50 Plt Count 278 k/uL (150-450) 06/14/21 16:50 MPV 9.8 06/14/21 16:50 Neutrophils % 80 % 06/14/21 16:50 Lymphocytes % 14 % 06/14/21 16:50 Monocytes % 4 % 06/14/21 16:50 Eosinophils % 0 % 06/14/21 16:50 Basophils % 0 % 06/14/21 16:50 Neutrophils # 8.6 k/uL (1.3-7.7) H 06/14/21 16:50 Lymphocytes # 1.5 k/uL (1.0-4.8) 06/14/21 16:50 Monocytes # 0.5 k/uL (0-1.0) 06/14/21 16:50 Eosinophils # 0.0 k/uL (0-0.7) 06/14/21 16:50 Basophils # 0.0 k/uL (0-0.2) 06/14/21 16:50 Hypochromasia Marked 06/14/21 16:50 Sodium 167 mmol/L (137-145) H* 06/15/21 12:17 Potassium 3.3 mmol/L (3.5-5.1) L 06/15/21 12:17 Chloride 141 mmol/L (98-107) H* 06/15/21 12:17 Carbon Dioxide 19 mmol/L (22-30) L 06/15/21 12:17 Anion Gap 7 mmol/L 06/15/21 12:17 BUN 35 mg/dL (7-17) H 06/15/21 12:17 Creatinine 1.55 mg/dL (0.52-1.04) H 06/15/21 12:17 Est GFR (CKD-EPI)AfAm 44 (>60 ml/min/1.73 sqM) 06/15/21 12:17 Est GFR (CKD-EPI)NonAf 38 (>60 ml/min/1.73 sqM) 06/15/21 12:17 Glucose 140 mg/dL (74-99) H 06/15/21 12:17 POC Glucose (mg/dL) 115 mg/dL (75-99) H 06/15/21 11:41 POC Glu Arts Therapist ID Lina Gonzalez 06/15/21 11:41 Plasma Lactic Acid Jed 2.0 mmol/L (0.7-2.0) 06/14/21 16:50 Calcium 9.4 mg/dL (8.4-10.2) 06/15/21 12:17 Magnesium 2.9 mg/dL (1.6-2.3) H 06/14/21 16:50 Total Bilirubin 0.7 mg/dL (0.2-1.3) 06/15/21 12:17 AST 20 U/L (14-36) 06/15/21 12:17 ALT 17 U/L (4-34) 06/15/21 12:17 Alkaline Phosphatase 63 U/L (38-126) 06/15/21 12:17 Total Protein 5.8 g/dL (6.3-8.2) L 06/15/21 12:17 Albumin 3.3 g/dL (3.5-5.0) L 06/15/21 12:17 Urine Color Yellow 06/14/21 17:08 Urine Appearance Clear (Clear) 06/14/21 17:08 Urine pH 5.5 (5.0-8.0) 06/14/21 17:08 Ur Specific [place] 1.019 (1.001-1.035) 06/14/21 17:08 Urine Protein Trace (Negative) H 06/14/21 17:08 Urine Glucose (UA) Negative (Negative) 06/14/21 17:08 Urine Ketones Negative (Negative) 06/14/21 17:08 Urine Blood Negative (Negative) 06/14/21 17:08 Urine Nitrite Negative (Negative) 06/14/21 17:08 Urine Bilirubin Negative (Negative) 06/14/21 17:08 Urine Urobilinogen 2.0 mg/dL (<2.0) 06/14/21 17:08 Ur Leukocyte Esterase Negative (Negative) 06/14/21 17:08 Coronavirus (PCR) Not Detected (Not Detectd) 06/14/21 21:06 06/15/21 14:24 IDENTIFYING DATA: This patient is a , unemployed, 50-year-old female with a significant history of treatment resistant schizophrenia who presents to the emergency Department for altered mental status and abnormal lab values. HISTORY OF PRESENT ILLNESS: The patient presented to the hospital from [facility] due to decreased responsiveness. Initial laboratory work she displayed elevated sodium. Upon presentation in the emergency department, the patient was noted to have significant hyponatremia with a sodium of 167 and elevated BUN/creatinine. Psychiatry has been consulted for the patient's history of bipolar disorder and catatonia. Upon evaluation the patient, the patient presents as alert and oriented to person not to place or time. She is unable to verbalize where she is currently. She is slow to respond. However, the patient denies any suicidal or homicidal ideation, intention, and/or plan. She is not reporting any auditory or visual hallucinations. She denies any paranoia or fear at this time. The patient has been adherent with her medications and is not verbalizing any significant side effects to this provider albeit history is limited. Patient is now receiving IV fluids. PAST PSYCHIATRIC HISTORY: Patient has a significant history of bipolar disorder. She has had multiple trials of medications including Abilify, Effexor, Tegretol, and trazodone. She has been prescribed Clozaril. The patient follows up with the ACT team of [facility] in the outpatient setting. She was last discharged from this hospital on 03/22/2021 on a regimen of Clozaril 300 mg at bedtime, Haldol 2 mg twice daily, and lamictal 25 mg twice daily.Her home medications prior to this admission had clozaril at 100 mg at bedtime, haldol 5 mg twice daily as needed, and lamictal 25 mg twice daily. PAST MEDICAL HISTORY: Past Medical History: Diabetes Mellitus, Hypertension, Thyroid Disorder Additional Past Medical History / Comment(s): hx obtained from . Pt unable to answer History of Any Multi-Drug Resistant Organisms: None Reported Past Surgical History: Appendectomy, Cholecystectomy, Tubal Ligation Additional Past Surgical History / Comment(s): tubal 03/2003 Past Anesthesia/Blood Transfusion Reactions: No Reported Reaction Past Psychological History: Bipolar, Depression Smoking Status: Former smoker Past Alcohol Use History: Heavy Past Drug Use History: Marijuana ALLERGIES: Cefuroxime, penicillins, thioridazine CHEMICAL DEPENDENCY HISTORY: History of heavy alcohol use however none currently. No tobacco, marijuana, or illicit drug use. FAMILY PSYCHIATRIC/SUBSTANCE USE HISTORY: Unable to obtain SOCIAL HISTORY: Patient is currently a resident in [facility]. She is . Her is her guardian. MENTAL STATUS EXAM: General Appearance: Patient appears to be stated age is alert, and attempts to cooperate. Patient appears to have fair hygiene and grooming wearing hospital gown with poor eye contact. Behavior: Patient is calmly lying in bed without any agitated behavior. Speech: Patient's speech is delayed, nonspontaneous, monotone, low in volume. Mood/Affect: Patient reports their mood is "okay", affect is flat. Suicidality/Homicidality: Patient denies having any suicidal or homicidal ideation intent or plan. Perceptions: Patient denies any visual hallucinations and denies any auditory hallucinations Though content/process: There is no evidence of any delusional thought content and thought process is linear and goal-directed. Memory and concentration: Patient is alert and oriented to self only. Judgment and insight: poor Vital Signs Temp 98.2 F 06/15/21 08:00 Pulse 98 06/15/21 12:00 Resp 16 06/15/21 14:00 BP 138/50 06/15/21 12:00 Pulse Ox 96 06/15/21 12:00 Intake & Output 06/14/21 06/15/21 06/15/21 18:59 06:59 18:59 Output Total 650 Balance -650 Weight 99.79 kg 99.79 kg Output: Urine 650 Other: Voiding Method Diaper Indwelling Catheter Indwelling Catheter Incontinent Laboratory Results - Last 24 Hours 06/14/21 06/14/21 06/14/21 16:50 16:50 16:50 WBC 10.8 H RBC 5.28 Hgb 15.6 Hct 50.2 H MCV 95.1 MCH 29.6 MCHC 31.1 RDW 15.0 Plt Count 278 MPV 9.8 Neutrophils % 80 Lymphocytes % 14 Monocytes % 4 Eosinophils % 0 Basophils % 0 Neutrophils # 8.6 H Lymphocytes # 1.5 Monocytes # 0.5 Eosinophils # 0.0 Basophils # 0.0 Hypochromasia Marked Sodium 173 H* Potassium 3.8 Chloride 134 H* Carbon Dioxide 21 L Anion Gap 18 BUN 57 H Creatinine 2.38 H Est GFR (CKD-EPI)AfAm 26 Est GFR (CKD-EPI)NonAf 23 Glucose 118 H POC Glucose (mg/dL) POC Glu Arts Therapist ID Plasma Lactic Acid Jed 2.0 Calcium 10.3 H Magnesium 2.9 H Total Bilirubin 1.1 AST 27 ALT 24 Alkaline Phosphatase 90 Total Protein 7.6 Albumin 4.6 Urine Color Urine Appearance Urine pH Ur Specific [place] Urine Protein Urine Glucose (UA) Urine Ketones Urine Blood Urine Nitrite Urine Bilirubin Urine Urobilinogen Ur Leukocyte Esterase Coronavirus (PCR) 06/14/21 06/14/21 06/14/21 17:08 21:06 22:59 WBC RBC Hgb Hct MCV MCH MCHC RDW Plt Count MPV Neutrophils % Lymphocytes % Monocytes % Eosinophils % Basophils % Neutrophils # Lymphocytes # Monocytes # Eosinophils # Basophils # Hypochromasia Sodium Potassium Chloride Carbon Dioxide Anion Gap BUN Creatinine Est GFR (CKD-EPI)AfAm Est GFR (CKD-EPI)NonAf Glucose POC Glucose (mg/dL) 160 H POC Glu Arts Therapist ID Nancy Urbina Plasma Lactic Acid Jed Calcium Magnesium Total Bilirubin AST ALT Alkaline Phosphatase Total Protein Albumin Urine Color Yellow Urine Appearance Clear Urine pH 5.5 Ur Specific [place] 1.019 Urine Protein Trace H Urine Glucose (UA) Negative Urine Ketones Negative Urine Blood Negative Urine Nitrite Negative Urine Bilirubin Negative Urine Urobilinogen 2.0 Ur Leukocyte Esterase Negative Coronavirus (PCR) Not Detected 06/15/21 06/15/21 06/15/21 06:05 11:41 12:17 WBC RBC Hgb Hct MCV MCH MCHC RDW Plt Count MPV Neutrophils % Lymphocytes % Monocytes % Eosinophils % Basophils % Neutrophils # Lymphocytes # Monocytes # Eosinophils # Basophils # Hypochromasia Sodium 167 H* Potassium 3.3 L Chloride 141 H* Carbon Dioxide 19 L Anion Gap 7 BUN 35 H Creatinine 1.55 H Est GFR (CKD-EPI)AfAm 44 Est GFR (CKD-EPI)NonAf 38 Glucose 140 H POC Glucose (mg/dL) 168 H 115 H POC Glu Arts Therapist ID Gena Gayle Bailey Plasma Lactic Acid Jed Calcium 9.4 Magnesium Total Bilirubin 0.7 AST 20 ALT 17 Alkaline Phosphatase 63 Total Protein 5.8 L Albumin 3.3 L Urine Color Urine Appearance Urine pH Ur Specific [place] Urine Protein Urine Glucose (UA) Urine Ketones Urine Blood Urine Nitrite Urine Bilirubin Urine Urobilinogen Ur Leukocyte Esterase Coronavirus (PCR) IMPRESSIONS: Acute metabolic encephalopathy - suspect secondary to hypernatremia Schizophrenia Hypothyroidism PLAN: -Continue your medical management. -At this time patient DOES NOT meet criteria for inpatient psychiatric admission. The patient's change in presentation is likely secondary to her electrolyte abnormalities. Review of her medications reveal no psychotropic medications that are affiliated with hypernatremia. -Delirium precautions recommended with patient including - avoiding use of narcotics and TE[employer]AG [employer]ER sedatives, limit anticholinergic medications when possible, frequent re-orientation, minimize use of restraints, open window shades during the day and close them at night -Would recommend the following medication changes/additions: Continue the patient's home medications of Clozaril, Lamictal, and Haldol when necessary for management of her schizophrenia. Review of the literature reveal that his medications are not known to contribute to hypernatremia. -Psychiatry will continue to follow. 06/15/21 14:24
[2021-06-15 16:53] LABS: Glucose,Whole Blood 118 mg/dL (75-99)
[2021-06-15] MEDS ORDERED: POTASSIUM CHLORIDE 20 MEQ in WATER FOR INJECTION 1 100ML.BAG IVPB STA (17:42)
--- NOTE | 2021-06-15 18:47 | P.PN ---
Progress Note - Text Progress Note Date: 06/15/21 Chief Complaint: Abnormal labs History of presenting complaint: This is a 50-year-old patient, who follows with Dr. Saenz . known history of bipolar disorder and schizophrenia. 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 At catatonic state. Had responded well to Ativan treatment. Patient brought in from [facility]. Decreased responsiveness. Labs showed elevated sodium. Sodium is 173 with a chloride of 134. Also creatinine is up to 2.38. Patient rather delirious. Lethargic. Not able to give much of a history. Rest of the history as obtained per the ER physician. See the documentation. Patient started on IV fluids. Admitted with severe hypernatremia, acute kidney injury, acute metabolic encephalopathy/delirium. Started on D5 0.45. June 15: Patient ate a small amount of assistance this morning. Laying in bed eyes open. Any questions she just says no. Lethargic. Unable to take oral medications Review of systems cannot be obtained patient is lethargic Active Medications Acetaminophen (Acetaminophen Tab 325 Mg Tab) 650 mg PO Q6H PRN PRN Reason: Fever and/ or Pain Atorvastatin Calcium (Atorvastatin 40 Mg Tab) 40 mg PO HS@2100 [facility] Last Admin: 06/14/21 22:23 Dose: Not Given Documented by: Calcium Carbonate/Glycine (Calcium Carbonate 500 Mg Chewable) 1,000 mg PO Q4HR PRN PRN Reason: Dyspepsia Clozapine (Clozapine 100 Mg Tab) 100 mg PO HS@2100 [facility] Stop: 06/21/21 23:00 Last Admin: 06/14/21 22:23 Dose: Not Given Documented by: Cyanocobalamin (Cyanocobalamin 500 Mcg Tab) 1,000 mcg PO DAILY@0900 [facility] Last Admin: 06/15/21 08:09 Dose: Not Given Documented by: Enoxaparin Sodium (Enoxaparin 100 Mg/Ml Syringe) 100 mg SQ Q12H [facility] Last Admin: 06/15/21 08:08 Dose: 100 mg Documented by: Fenofibrate (Fenofibrate 160 Mg Tab) 160 mg PO HS@2100 [facility] Last Admin: 06/14/21 22:23 Dose: Not Given Documented by: Haloperidol (Haloperidol 5 Mg Tab) 5 mg PO BID PRN PRN Reason: Psychosis Haloperidol Lactate (Haloperidol Lactate 5 Mg/Ml 1 Ml Vial) 5 mg IM Q12H PRN PRN Reason: Psychosis Dextrose/Sodium Chloride (Dextrose 5%-1/2ns Iv Soln) 1,000 mls @ 150 mls/hr IV .Q6H40M [facility] Last Admin: 06/15/21 17:13 Dose: 150 mls/hr Documented by: Potassium Chloride 20 meq/ IV (Solution) 100 mls @ 50 mls/hr IVPB ONCE STA Stop: 06/15/21 19:41 Last Admin: 06/15/21 18:34 Dose: 50 mls/hr Documented by: Isosorbide Mononitrate (Isosorbide Mononitrate Er 30 Mg Tab.Er.24h) 30 mg PO DAILY@0900 [facility] Last Admin: 06/15/21 08:09 Dose: Not Given Documented by: Lactulose (Lactulose 20 Gm/30 Ml Cup) 20 gm PO DAILY PRN PRN Reason: Constipation Lamotrigine (Lamotrigine 25 Mg Tab) 25 mg PO BID@0900,2100 [facility] Last Admin: 06/15/21 08:10 Dose: Not Given Documented by: Levothyroxine Sodium (Levothyroxine 88 Mcg Tab) 88 mcg PO DAILY@0600 [facility] Last Admin: 06/15/21 06:28 Dose: Not Given Documented by: Lorazepam (Lorazepam 1 Mg Tab) 1 mg PO Q8H PRN PRN Reason: Anxiety/Agitation Melatonin (Melatonin 3 Mg Tablet) 3 mg PO HS PRN PRN Reason: Insomnia Naloxone HCl (Naloxone 0.4 Mg/Ml 1 Ml Vial) 0.2 mg IV Q2M PRN PRN Reason: Opioid Reversal Ondansetron HCl (Ondansetron 4 Mg/2 Ml Vial) 4 mg IVP Q8HR PRN PRN Reason: Nausea And Vomiting Past medical history to include: Hypertension, hypothyroid, bipolar disorder, schizophrenia. excessive alcohol use in the past. No smoking. Psychosis, catatonic-like syndrome Social history: Heavy alcohol use in the past. . No smoking. Currently at [facility] Family history: Patient cannot tell Physical examination: VITAL SIGNS: 98.2, 98, 16, 1 38 x 50, 96% room air GENERAL: , lethargic, laying in bed. Eyes open EYES: Pupils equal. Conjunctiva normal. HEENT: External appearance of nose and ears normal, oral cavity dry. NECK: JVD unable to assess; masses not palpable. HEART: First and second heart sounds are normal; no edema. LUNGS: Respiratory rate normal; clear to auscultation. ABDOMEN: Soft, nontender, liver spleen not palpable, no masses palpable. PSYCH: [Lethargic, only says no MUSCULOSKELETAL:No Clubbing/cyanosis;muscles-grossly intact NEUROLOGICAL: [Cranial nerves grossly intact; no facial asymmetry, patient lethargic.. LYMPHATICS: No lymph nodes palpable in the axilla and neck INVESTIGATIONS, reviewed in the clinical context: June 15: Sodium 167 chloride 141 bicarb 19 BUN 35 creatinine 1.55 White count 10.8 hemoglobin 15.6 platelets 278 sodium 173 potassium 3.8 chloride 134 BUN 57 creatinine 2.38 potassium 10.3 UA showing trace protein EKG tracing personally reviewed by me-normal sinus rhythm. Unclear baseline Previous labs reviewed: March 2021: BUN 12 creatinine 0.9 Assessment and plan: -Severe hypernatremia, from free water deficit: Slow to respond Increase D5.45 at 1 50 mL an hour -Acute metabolic encephalopathy from renal failure and delirium: Slow to respond Follow clinically -Schizoaffective disorder, bipolar type. Clozaril 100 mg by mouth daily at bedtime Lamictal 25 mg twice a day Ativan 1 mg by mouth every 8 when necessary Haldol 5 mg by mouth twice a day when necessary -Bipolar disorder See above medications -Acute kidney injury, possibly prerenal: Slow improvement IV fluids -Diabetes mellitus type 2, on oral hypoglycemic Hold metformin Follow Accu-Cheks -Hypothyroid Change Synthroid to IV -Hyperlipidemia Lipitor 40 mg daily at bedtime TriCor 134 mg before supper -Chronic DVT both lower extremity diagnosed on October 19 2020 [place]. Currently on Lovenox 100 mg subcu every 12 Increase IV fluids to 200 mL an hour. Change Synthroid to IV every 48 hours. Patient not able to take oral medications. Follow labs. Continue subcu Lovenox therapeutic dose.
[2021-06-15] MEDS: LEVOTHYROXINE IVP 100 MCG/5 ML VIAL IV SCH (20:48)
[2021-06-15] MEDS: FENOFIBRATE 160 MG TAB PO SCH (22:30)
[2021-06-15] MEDS: cloZAPine 100 MG TAB PO SCH (22:30)
[2021-06-15] MEDS: ATORVASTATIN 40 MG TAB PO SCH (22:30)
[2021-06-16] MEDS: DEXTROSE 5%-0.45% NACL 1,000 ML IV SCH ×4 (01:07→12:02)
[2021-06-16 06:20] LABS: Glucose,Whole Blood 168 mg/dL (75-99)
[2021-06-16 07:53] LABS: Basophils % (A) 0 %; Eosinophils % (A) 0 %; HCT 41.6 % (34.0-46.0); Hypochromasia Marked; Lymphocytes # (A) 1.3 k/uL (1.0-4.8); Lymphocytes % (A) 20 %; MCH 28.9 pg (25.0-35.0); MCHC 30.1 g/dL (31.0-37.0); MCV 96.1 fL (80.0-100.0); Mean Platelet Volume 10.4; Monocytes # (A) 0.3 k/uL (0-1.0); Monocytes % (A) 5 %; Neutrophils # (A) 4.8 k/uL (1.3-7.7); Neutrophils % (A) 74 %; Platelet Count 183 k/uL (150-450); RBC 4.33 m/uL (3.80-5.40); RDW 14.7 % (11.5-15.5); WBC 6.4 k/uL (3.8-10.6)
[2021-06-16 08:09] LABS: HGB 12.5 gm/dL (11.4-16.0)
[2021-06-16 08:11] LABS: Calcium 9.1 mg/dL (8.4-10.2); Potassium 3.4 mmol/L (3.5-5.1)
[2021-06-16] MEDS: lamoTRIgine 25 MG TAB PO SCH ×2 (09:46→21:01)
[2021-06-16] MEDS: CYANOCOBALAMIN 500 MCG TAB PO SCH (09:46)
[2021-06-16] MEDS: ISOSORBIDE MONONITRATE ER 30 MG TAB.ER.24H PO SCH (09:46)
--- NOTE | 2021-06-16 11:14 | P.PN ---
Subjective This is a 50-year-old patient, who follows with Dr. Saenz . known history of bipolar disorder and schizophrenia. 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 At catatonic state. Had responded well to Ativan treatment. Patient brought in from [facility]. Decreased responsiveness. Labs showed elevated sodium. Sodium is 173 with a chloride of 134. Also creatinine is up to 2.38. Patient rather delirious. Lethargic. Not able to give much of a history. Rest of the history as obtained per the ER physician. See the documentation. Patient started on IV fluids. Admitted with severe hypernatremia, acute kidney injury, acute metabolic encephalopathy/delirium. Started on D5 0.45. June 15: Patient ate a small amount of assistance this morning. Laying in bed eyes open. Any questions she just says no. Lethargic. Unable to take oral medications 06/16/2021 This is a pleasant 50 years old female who presents with altered mental status secondary to hypernatremia also she has evidence of acute kidney injury, her creatinine significantly improved down to 1.4 today while she is on D5 half- normal saline at 200 mL per hour however her sodium is still significantly elev ated at 165 and patient this morning's distal confused, she is awake but talking to herself, she does not follow commands and she does not answer questions. Because of this we will change her fluid to D5W and check her sodium tomorrow. Her WBC is back to normal today at 6.4. She is on Lovenox 100 mg twice a day because she cannot take her home dose of Eliquis for her history of DVT Objective - Vital Signs Vital signs: Vital Signs Temp 98 F 06/16/21 08:00 Pulse 60 06/16/21 08:00 Resp 16 06/16/21 08:00 BP 98/55 06/16/21 08:00 Pulse Ox 95 06/16/21 08:00 Intake & Output 06/15/21 06/16/21 06/16/21 18:59 06:59 18:59 Intake Total 1140 Output Total 1020 Balance 1140 -1020 Intake: Intake, IV Titration 1000 Amount Dextrose 5%-0.45% NaCl 1, 1000 000 ml @ 150 mls/hr IV . Q6H40M [facility] Rx#:[id number] Oral 140 Output: Urine 1020 Uretheral (Wiseman) 1020 Other: Voiding Method Indwelling Catheter Indwelling Catheter Indwelling Catheter - Exam -GENERAL: The patient is confused and does not follow commands HEENT: Pupils are round and equally reacting to light. EOMI. No scleral icterus. No conjunctival pallor. Normocephalic, atraumatic. No pharyngeal erythema. No thyromegaly. CARDIOVASCULAR: S1 and S2 present. No murmurs, rubs, or gallops. PULMONARY: Chest is clear to auscultation, no wheezing or crackles. ABDOMEN: Soft, nontender, nondistended, normoactive bowel sounds. No palpable organomegaly. MUSCULOSKELETAL: No joint swelling or deformity. EXTREMITIES: No cyanosis, clubbing, or pedal edema. NEUROLOGICAL: Gross neurological examination did not reveal any focal deficits. SKIN: No rashes. no petechiae. - Labs CBC & Chem 7: 06/16/21 07:03 06/16/21 07:03 Labs: Abnormal Lab Results - Last 24 Hours (Table) 06/15/21 06/15/21 06/15/21 Range/Units 11:41 12:17 16:51 MCHC (31.0-37.0) g/dL Sodium 167 H* (137-145) mmol/L Potassium 3.3 L (3.5-5.1) mmol/L Chloride 141 H* (98-107) mmol/L Carbon Dioxide 19 L (22-30) mmol/L BUN 35 H (7-17) mg/dL Creatinine 1.55 H (0.52-1.04) mg/dL Glucose 140 H (74-99) mg/dL POC Glucose (mg/dL) 115 H 118 H (75-99) mg/dL Total Protein 5.8 L (6.3-8.2) g/dL Albumin 3.3 L (3.5-5.0) g/dL 06/16/21 06/16/21 06/16/21 Range/Units 06:09 07:03 07:03 MCHC 30.1 L (31.0-37.0) g/dL Sodium 165 H* (137-145) mmol/L Potassium 3.4 L (3.5-5.1) mmol/L Chloride 139 H* (98-107) mmol/L Carbon Dioxide 20 L (22-30) mmol/L BUN 25 H (7-17) mg/dL Creatinine 1.41 H (0.52-1.04) mg/dL Glucose 192 H (74-99) mg/dL POC Glucose (mg/dL) 168 H (75-99) mg/dL Total Protein (6.3-8.2) g/dL Albumin (3.5-5.0) g/dL Assessment and Plan Assessment: -Severe hypernatremia, from free water deficit: Slow to respond Start D5W at 100 mL per hour -Acute metabolic encephalopathy from renal failure and delirium: Slow to respond Follow clinically -Schizoaffective disorder, bipolar type. Clozaril 100 mg by mouth daily at bedtime Lamictal 25 mg twice a day Ativan 1 mg by mouth every 8 when necessary Haldol 5 mg by mouth twice a day when necessary Psychiatry already evaluated the patient -Bipolar disorder See above medications -Acute kidney injury, possibly prerenal: Slow improvement IV fluids -Diabetes mellitus type 2, on oral hypoglycemic Hold metformin Follow Accu-Cheks -Hypothyroid Change Synthroid to IV -Hyperlipidemia Lipitor 40 mg daily at bedtime TriCor 134 mg before supper -Chronic DVT both lower extremity diagnosed on October 19 2020 [place]. Currently on Lovenox 100 mg subcu every 12 DVT prophylaxis: Lovenox GI prophylaxis: Pepcid
[2021-06-16 12:01] LABS: Glucose,Whole Blood 147 mg/dL (75-99)
[2021-06-16] MEDS: ENOXAPARIN 100 MG/ML SYRINGE SQ SCH ×2 (12:02→21:27)
[2021-06-16] MEDS: DEXTROSE 5% IN WATER 1,000 ML IV SCH ×2 (12:03→21:27)
[2021-06-16 16:25] LABS: Glucose,Whole Blood 124 mg/dL (75-99)
[2021-06-16 20:13] LABS: Glucose,Whole Blood 129 mg/dL (75-99)
[2021-06-16] MEDS: ATORVASTATIN 40 MG TAB PO SCH (20:59)
[2021-06-16] MEDS: cloZAPine 100 MG TAB PO SCH (21:00)
[2021-06-16] MEDS: FENOFIBRATE 160 MG TAB PO SCH (21:00)
[2021-06-16] MEDS: FAMOTIDINE 20 MG/2 ML VIAL IV SCH (21:27)
[2021-06-17 06:14] LABS: Glucose,Whole Blood 154 mg/dL (75-99)
[2021-06-17] MEDS: CYANOCOBALAMIN 500 MCG TAB PO SCH (08:38)
[2021-06-17 08:45] LABS: Calcium 9.5 mg/dL (8.4-10.2); Potassium 3.4 mmol/L (3.5-5.1)
[2021-06-17 08:47] LABS: Basophils % (A) 0 %; Eosinophils % (A) 0 %; HCT 43.5 % (34.0-46.0); HGB 12.9 gm/dL (11.4-16.0); Hypochromasia Marked; Lymphocytes # (A) 1.1 k/uL (1.0-4.8); Lymphocytes % (A) 19 %; MCH 28.1 pg (25.0-35.0); MCHC 29.6 g/dL (31.0-37.0); MCV 95.1 fL (80.0-100.0); Mean Platelet Volume 9.9; Monocytes # (A) 0.2 k/uL (0-1.0); Monocytes % (A) 4 %; Neutrophils # (A) 4.4 k/uL (1.3-7.7); Neutrophils % (A) 75 %; Platelet Count 183 k/uL (150-450); RBC 4.58 m/uL (3.80-5.40); RDW 14.7 % (11.5-15.5); WBC 5.8 k/uL (3.8-10.6)
[2021-06-17] MEDS: ENOXAPARIN 100 MG/ML SYRINGE SQ SCH ×2 (09:52→23:17)
[2021-06-17] MEDS: ISOSORBIDE MONONITRATE ER 30 MG TAB.ER.24H PO SCH (09:52)
[2021-06-17] MEDS: FAMOTIDINE 20 MG/2 ML VIAL IV SCH ×2 (09:52→22:42)
[2021-06-17] MEDS: lamoTRIgine 25 MG TAB PO SCH ×2 (09:52→22:42)
[2021-06-17 11:35] LABS: Glucose,Whole Blood 130 mg/dL (75-99)
--- NOTE | 2021-06-17 15:16 | P.PN ---
Subjective This is a 50-year-old patient, who follows with Dr. Saenz . known history of bipolar disorder and schizophrenia. 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 At catatonic state. Had responded well to Ativan treatment. Patient brought in from [facility]. Decreased responsiveness. Labs showed elevated sodium. Sodium is 173 with a chloride of 134. Also creatinine is up to 2.38. Patient rather delirious. Lethargic. Not able to give much of a history. Rest of the history as obtained per the ER physician. See the documentation. Patient started on IV fluids. Admitted with severe hypernatremia, acute kidney injury, acute metabolic encephalopathy/delirium. Started on D5 0.45. June 15: Patient ate a small amount of assistance this morning. Laying in bed eyes open. Any questions she just says no. Lethargic. Unable to take oral medications 06/16/2021 This is a pleasant 50 years old female who presents with altered mental status secondary to hypernatremia also she has evidence of acute kidney injury, her creatinine significantly improved down to 1.4 today while she is on D5 half- normal saline at 200 mL per hour however her sodium is still significantly elev ated at 165 and patient this morning's distal confused, she is awake but talking to herself, she does not follow commands and she does not answer questions. Because of this we will change her fluid to D5W and check her sodium tomorrow. Her WBC is back to normal today at 6.4. She is on Lovenox 100 mg twice a day because she cannot take her home dose of Eliquis for her history of DVT 06/17/2021 Patient remains confused, she's hallucination talking to somebody called joel (a lady I'm chasing U, the F pig). She follows commands however she is easily distracted. No other complaints she looks calm. Hemodynamically stable. Sodium went down only 165 down to 163, we will increase her D5 W and to 150 mL/h. Apparently because of her confusion patient cannot consume plain water, however she will be tried to encouraged by the staff Objective - Vital Signs Vital signs: Vital Signs Temp 97.8 F 06/17/21 04:00 Pulse 64 06/17/21 08:00 Resp 18 06/17/21 08:00 BP 126/75 01/29/22 08:00 Pulse Ox 95 06/17/21 08:00 Intake & Output 06/16/21 06/17/21 06/17/21 18:59 06:59 18:59 Output Total 1760 Balance -1760 Output: Urine 1760 Uretheral (Wiseman) 1760 Other: Voiding Method Indwelling Catheter Indwelling Catheter Indwelling Catheter - Exam -GENERAL: The patient is confused and does not follow commands HEENT: Pupils are round and equally reacting to light. EOMI. No scleral icterus. No conjunctival pallor. Normocephalic, atraumatic. No pharyngeal erythema. No thyromegaly. CARDIOVASCULAR: S1 and S2 present. No murmurs, rubs, or gallops. PULMONARY: Chest is clear to auscultation, no wheezing or crackles. ABDOMEN: Soft, nontender, nondistended, normoactive bowel sounds. No palpable organomegaly. MUSCULOSKELETAL: No joint swelling or deformity. EXTREMITIES: No cyanosis, clubbing, or pedal edema. NEUROLOGICAL: Gross neurological examination did not reveal any focal deficits. SKIN: No rashes. no petechiae. - Labs CBC & Chem 7: 06/17/21 07:23 06/17/21 07:23 Labs: Abnormal Lab Results - Last 24 Hours (Table) 06/16/21 06/16/21 06/17/21 Range/Units 16:23 20:12 06:12 MCHC (31.0-37.0) g/dL Sodium (137-145) mmol/L Potassium (3.5-5.1) mmol/L Chloride (98-107) mmol/L BUN (7-17) mg/dL Creatinine (0.52-1.04) mg/dL Glucose (74-99) mg/dL POC Glucose (mg/dL) 124 H 129 H 154 H (75-99) mg/dL 06/17/21 06/17/21 06/17/21 Range/Units 07:23 07:23 11:34 MCHC 29.6 L (31.0-37.0) g/dL Sodium 163 H* (137-145) mmol/L Potassium 3.4 L (3.5-5.1) mmol/L Chloride 133 H* (98-107) mmol/L BUN 18 H (7-17) mg/dL Creatinine 1.41 H (0.52-1.04) mg/dL Glucose 164 H (74-99) mg/dL POC Glucose (mg/dL) 130 H (75-99) mg/dL Assessment and Plan Assessment: -Severe hypernatremia, from free water deficit: Slow to respond Start D5W at 100 mL per hour -Acute metabolic encephalopathy from renal failure and delirium: Slow to respond Follow clinically -Schizoaffective disorder, bipolar type. Clozaril 100 mg by mouth daily at bedtime Lamictal 25 mg twice a day Ativan 1 mg by mouth every 8 when necessary Haldol 5 mg by mouth twice a day when necessary Psychiatry already evaluated the patient -Bipolar disorder See above medications -Acute kidney injury, possibly prerenal: Slow improvement IV fluids -Diabetes mellitus type 2, on oral hypoglycemic Hold metformin Follow Accu-Cheks -Hypothyroid Change Synthroid to IV -Hyperlipidemia Lipitor 40 mg daily at bedtime TriCor 134 mg before supper -Chronic DVT both lower extremity diagnosed on October 19 2020 [place]. Currently on Lovenox 100 mg subcu every 12 DVT prophylaxis: Lovenox GI prophylaxis: Pepcid
[2021-06-17 16:31] LABS: Glucose,Whole Blood 110 mg/dL (75-99)
[2021-06-17] MEDS: DEXTROSE 5% IN WATER 1,000 ML IV SCH ×2 (18:10→23:18)
[2021-06-17] MEDS: ATORVASTATIN 40 MG TAB PO SCH (22:28)
[2021-06-17] MEDS: FENOFIBRATE 160 MG TAB PO SCH (22:28)
[2021-06-17] MEDS: LEVOTHYROXINE IVP 100 MCG/5 ML VIAL IV SCH (22:42)
[2021-06-17] MEDS: cloZAPine 100 MG TAB PO SCH (22:43)
[2021-06-18] MEDS: DEXTROSE 5% IN WATER 1,000 ML IV SCH ×3 (06:09→23:04)
[2021-06-18 06:28] LABS: Glucose,Whole Blood 155 mg/dL (75-99)
[2021-06-18] MEDS: CYANOCOBALAMIN 500 MCG TAB PO SCH (08:20)
[2021-06-18] MEDS: ENOXAPARIN 100 MG/ML SYRINGE SQ SCH ×2 (08:20→21:41)
[2021-06-18] MEDS: ISOSORBIDE MONONITRATE ER 30 MG TAB.ER.24H PO SCH ×2 (08:20→10:49)
[2021-06-18] MEDS: lamoTRIgine 25 MG TAB PO SCH ×3 (08:22→21:24)
[2021-06-18] MEDS: FAMOTIDINE 20 MG/2 ML VIAL IV SCH ×2 (08:22→21:24)
[2021-06-18 11:54] LABS: Calcium 9.1 mg/dL (8.4-10.2); Potassium 2.9 mmol/L (3.5-5.1)
[2021-06-18 11:59] LABS: Glucose,Whole Blood 158 mg/dL (75-99)
[2021-06-18] MEDS ORDERED: Potassium Replacement Protocol 1 EACH MISC MISCELLANE PRN ×2 (12:13→13:24)
--- NOTE | 2021-06-18 12:16 | P.PN ---
Subjective This is a 50-year-old patient, who follows with Dr. Saenz . known history of bipolar disorder and schizophrenia. 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 At catatonic state. Had responded well to Ativan treatment. Patient brought in from [facility]. Decreased responsiveness. Labs showed elevated sodium. Sodium is 173 with a chloride of 134. Also creatinine is up to 2.38. Patient rather delirious. Lethargic. Not able to give much of a history. Rest of the history as obtained per the ER physician. See the documentation. Patient started on IV fluids. Admitted with severe hypernatremia, acute kidney injury, acute metabolic encephalopathy/delirium. Started on D5 0.45. June 15: Patient ate a small amount of assistance this morning. Laying in bed eyes open. Any questions she just says no. Lethargic. Unable to take oral medications 06/16/2021 This is a pleasant 50 years old female who presents with altered mental status secondary to hypernatremia also she has evidence of acute kidney injury, her creatinine significantly improved down to 1.4 today while she is on D5 half- normal saline at 200 mL per hour however her sodium is still significantly elev ated at 165 and patient this morning's distal confused, she is awake but talking to herself, she does not follow commands and she does not answer questions. Because of this we will change her fluid to D5W and check her sodium tomorrow. Her WBC is back to normal today at 6.4. She is on Lovenox 100 mg twice a day because she cannot take her home dose of Eliquis for her history of DVT 06/17/2021 Patient remains confused, she's hallucination talking to somebody called joel (a lady I'm chasing U, the F pig). She follows commands however she is easily distracted. No other complaints she looks calm. Hemodynamically stable. Sodium went down only 165 down to 163, we will increase her D5 W and to 150 mL/h. Apparently because of her confusion patient cannot consume plain water, however she will be tried to encouraged by the staff 06/18/2021 She still less confused today, she still hallucinating and talking about the Bird . She started eating and drinking today. Her sodium down to 151 and creatinine down to 1.29. We'll lower her D5W down to 100 mL/h and keep monitoring sodium tomorrow Psychiatric team on the case Objective - Vital Signs Vital signs: Vital Signs Temp 97.8 F 06/18/21 07:47 Pulse 63 06/18/21 07:47 Resp 18 06/18/21 07:47 BP 104/69 06/18/21 07:47 Pulse Ox 99 06/18/21 07:47 Intake & Output 06/17/21 06/18/21 06/18/21 18:59 06:59 18:59 Intake Total 240 Output Total 1100 Balance -1100 240 Intake: Oral 240 Output: Urine 1100 Other: Voiding Method Indwelling Catheter # Voids 1 1 # Bowel Movements 1 1 - Exam -GENERAL: The patient is confused and does not follow commands HEENT: Pupils are round and equally reacting to light. EOMI. No scleral icterus. No conjunctival pallor. Normocephalic, atraumatic. No pharyngeal erythema. No thyromegaly. CARDIOVASCULAR: S1 and S2 present. No murmurs, rubs, or gallops. PULMONARY: Chest is clear to auscultation, no wheezing or crackles. ABDOMEN: Soft, nontender, nondistended, normoactive bowel sounds. No palpable organomegaly. MUSCULOSKELETAL: No joint swelling or deformity. EXTREMITIES: No cyanosis, clubbing, or pedal edema. NEUROLOGICAL: Gross neurological examination did not reveal any focal deficits. SKIN: No rashes. no petechiae. - Labs CBC & Chem 7: 06/17/21 07:23 06/18/21 11:22 Labs: Abnormal Lab Results - Last 24 Hours (Table) 06/17/21 06/17/21 06/18/21 Range/Units 11:34 16:29 06:27 POC Glucose (mg/dL) 130 H 110 H 155 H (75-99) mg/dL Assessment and Plan Assessment: -Severe hypernatremia, from free water deficit: Slow to respond Start D5W at 100 mL per hour -Acute metabolic encephalopathy from renal failure and delirium: Slow to respond Follow clinically -Schizoaffective disorder, bipolar type. Clozaril 100 mg by mouth daily at bedtime Lamictal 25 mg twice a day Ativan 1 mg by mouth every 8 when necessary Haldol 5 mg by mouth twice a day when necessary Psychiatry already evaluated the patient -Bipolar disorder See above medications -Acute kidney injury, possibly prerenal: Slow improvement IV fluids -Diabetes mellitus type 2, on oral hypoglycemic Hold metformin Follow Accu-Cheks -Hypothyroid Change Synthroid to IV -Hyperlipidemia Lipitor 40 mg daily at bedtime TriCor 134 mg before supper -Chronic DVT both lower extremity diagnosed on October 19 2020 [place]. Currently on Lovenox 100 mg subcu every 12 DVT prophylaxis: Lovenox GI prophylaxis: Pepcid
[2021-06-18] MEDS: POTASSIUM CHLORIDE ER 20 MEQ TAB.ER PO SCH ×2 (14:15→15:30)
[2021-06-18 17:05] LABS: Glucose,Whole Blood 122 mg/dL (75-99)
[2021-06-18 20:12] LABS: Glucose,Whole Blood 124 mg/dL (75-99)
[2021-06-18] MEDS: cloZAPine 100 MG TAB PO SCH (21:24)
[2021-06-18] MEDS: FENOFIBRATE 160 MG TAB PO SCH (21:40)
[2021-06-18] MEDS: ATORVASTATIN 40 MG TAB PO SCH (21:40)
[2021-06-19 06:13] LABS: Glucose,Whole Blood 142 mg/dL (75-99)
[2021-06-19] MEDS: FAMOTIDINE 20 MG/2 ML VIAL IV SCH ×2 (10:07→21:02)
[2021-06-19] MEDS: ISOSORBIDE MONONITRATE ER 30 MG TAB.ER.24H PO SCH (10:07)
[2021-06-19] MEDS: ENOXAPARIN 100 MG/ML SYRINGE SQ SCH ×2 (10:07→23:33)
[2021-06-19] MEDS: CYANOCOBALAMIN 500 MCG TAB PO SCH (10:07)
[2021-06-19] MEDS: lamoTRIgine 25 MG TAB PO SCH ×2 (10:08→20:58)
[2021-06-19] MEDS: DEXTROSE 5% IN WATER 1,000 ML IV SCH (10:08)
[2021-06-19 10:55] LABS: Calcium 9.1 mg/dL (8.4-10.2); Potassium 2.9 mmol/L (3.5-5.1)
[2021-06-19 12:10] LABS: Glucose,Whole Blood 130 mg/dL (75-99)
[2021-06-19] MEDS ORDERED: Potassium Replacement Protocol 1 EACH MISC MISCELLANE PRN (12:48)
[2021-06-19] MEDS: POTASSIUM CHLORIDE 20 MEQ in WATER FOR INJECTION 1 100ML.BAG IVPB SCH ×3 (13:17→18:09)
[2021-06-19] MEDS: LACTATED RINGERS 1,000 ML IV SCH ×2 (13:19→23:33)
--- NOTE | 2021-06-19 14:19 | P.PN ---
Progress Note - Text Progress Note Date: 06/19/21 Interval history: Patient was seen today for psychiatric follow up for delirium and hx of schiz ophrenia. Patient was seen at the bedside today with her at her side. She appeared to be fairly confused and was leaning to one side of her bed. She engages minimally with junior copywriter. She claimed that she was in the hospital for "food". She appeared to have very poor insight and judgment. She was very slow to respond and sometimes responded inappropriately to questions. She was trying to reach for items on her table in front of her. She knew that she was in the hospital however does not know the date. She only knows her first name. She was not able to comment on her sleep or her appetite. Denying any problems with her mood. Poor attention span. At this time patient denies any suicidal or homicidal ideations intent or plan. Denies any Auditory or visual hallucinations. Patient has been selectively taking certain medications. Mental status exam: General Appearance: Patient appears to be obese, confused, stated age is alert, difficult to redirect. Behavior: No agitated behavior. Patient is calm and directable confused. Laying in bed. Speech: Patient's speech is fluent and nonpressured. Soft Mood/Affect: Mood is "fine", affect is congruent and constricted. Suicidality/Homicidality: Patient denies having any suicidal or homicidal ideation intent or plan. Perceptions: Patient denies any auditory or visual hallucinations. Though content/process: [place], monotone, illogical at times. Memory and concentration: AOX1-2, only knows her first name and that she is in hospital, poor attention span. Judgment and insight: Poor Assessment/Plan: Continue with current diagnosis. Increased clozapine to 150 mg daily at bedtime for psychosis. Continue with correcting sodium and monitoring closely as this will help improve patient's delirium. Discontinued Ativan when necessary however continue with Haldol prn for psychosis. Continue with frequent reorientation and opening the blinds to regulate sleep cycle. Minimize restraints. Psychiatry will continue to follow along.
[2021-06-19 17:04] LABS: Glucose,Whole Blood 103 mg/dL (75-99)
--- NOTE | 2021-06-19 19:53 | P.PN ---
Progress Note - Text Progress Note Date: 06/19/21 Chief Complaint: Abnormal labs History of presenting complaint: This is a 50-year-old patient, who follows with Dr. Saenz . known history of bipolar disorder and schizophrenia. 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 At catatonic state. Had responded well to Ativan treatment. Patient brought in from [facility]. Decreased responsiveness. Labs showed elevated sodium. Sodium is 173 with a chloride of 134. Also creatinine is up to 2.38. Patient rather delirious. Lethargic. Not able to give much of a history. Rest of the history as obtained per the ER physician. See the documentation. Patient started on IV fluids. Admitted with severe hypernatremia, acute kidney injury, acute metabolic encephalopathy/delirium. Started on D5 0.45. June 19: Getting D5 0.45. I changed IV fluids to LR. Sodium 150. Patient more awake. Mumbling. I did give the patient bite off on her burger. She daily twice and then the food ruled out from her mouth. Spoke to Dr. Khan from psychiatry. Increased patient's Clozaril to 150 mg at night. Patient is taking her medications intermittently. After talking to the nurse. Barely has been eating. Placed an order for all meals to be assisted. Also change the diet to chopped Review of systems cannot be obtained patient is delirious/psychotic Active Medications Acetaminophen (Acetaminophen Tab 325 Mg Tab) 650 mg PO Q6H PRN PRN Reason: Fever and/ or Pain Atorvastatin Calcium (Atorvastatin 40 Mg Tab) 40 mg PO HS@2100 [facility] Last Admin: 06/18/21 21:40 Dose: Not Given Documented by: Calcium Carbonate/Glycine (Calcium Carbonate 500 Mg Chewable) 1,000 mg PO Q4HR PRN PRN Reason: Dyspepsia Clozapine (Clozapine 100 Mg Tab) 150 mg PO HS [facility] Stop: 06/21/21 23:00 Cyanocobalamin (Cyanocobalamin 500 Mcg Tab) 1,000 mcg PO DAILY@0900 [facility] Last Admin: 06/19/21 10:07 Dose: 1,000 mcg Documented by: Enoxaparin Sodium (Enoxaparin 100 Mg/Ml Syringe) 100 mg SQ Q12H [facility] Last Admin: 06/19/21 10:07 Dose: 100 mg Documented by: Famotidine (Famotidine 20 Mg/2 Ml Vial) 20 mg IV Q12HR [facility] Last Admin: 06/19/21 10:07 Dose: 20 mg Documented by: Fenofibrate (Fenofibrate 160 Mg Tab) 160 mg PO HS@2100 [facility] Last Admin: 06/18/21 21:40 Dose: Not Given Documented by: Haloperidol (Haloperidol 5 Mg Tab) 5 mg PO BID PRN PRN Reason: Psychosis Haloperidol Lactate (Haloperidol Lactate 5 Mg/Ml 1 Ml Vial) 5 mg IM Q12H PRN PRN Reason: Psychosis Potassium Chloride 20 meq/ IV (Solution) 100 mls @ 50 mls/hr IVPB Q2H [facility]; Protocol Stop: 06/19/21 19:59 Last Admin: 06/19/21 18:09 Dose: 50 mls/hr Documented by: Lactated Ringer's (Lactated Ringers) 1,000 mls @ 150 mls/hr IV .Q6H40M [facility] Last Admin: 06/19/21 13:19 Dose: 150 mls/hr Documented by: Isosorbide Mononitrate (Isosorbide Mononitrate Er 30 Mg Tab.Er.24h) 30 mg PO DAILY@0900 [facility] Last Admin: 06/19/21 10:07 Dose: 30 mg Documented by: Lactulose (Lactulose 20 Gm/30 Ml Cup) 20 gm PO DAILY PRN PRN Reason: Constipation Lamotrigine (Lamotrigine 25 Mg Tab) 25 mg PO BID@0900,2100 [facility] Last Admin: 06/19/21 10:08 Dose: 25 mg Documented by: Levothyroxine Sodium (Levothyroxine Ivp 100 Mcg/5 Ml Vial) 75 mcg IV Q48H [facility] Last Admin: 06/17/21 22:42 Dose: 75 mcg Documented by: Melatonin (Melatonin 3 Mg Tablet) 3 mg PO HS PRN PRN Reason: Insomnia Miscellaneous Information (Potassium Replacement Protocol 1 Each Misc) 1 each MISCELLANE DAILY PRN; Protocol PRN Reason: Per Protocol Miscellaneous Information (Potassium Replacement Protocol 1 Each Misc) 1 each MISCELLANE DAILY PRN; Protocol PRN Reason: Per Protocol Miscellaneous Information (Potassium Replacement Protocol 1 Each Misc) 1 each MISCELLANE DAILY PRN; Protocol PRN Reason: Per Protocol Naloxone HCl (Naloxone 0.4 Mg/Ml 1 Ml Vial) 0.2 mg IV Q2M PRN PRN Reason: Opioid Reversal Ondansetron HCl (Ondansetron 4 Mg/2 Ml Vial) 4 mg IVP Q8HR PRN PRN Reason: Nausea And Vomiting Past medical history to include: Hypertension, hypothyroid, bipolar disorder, schizophrenia. excessive alcohol use in the past. No smoking. Psychosis, catatonic-like syndrome Social history: Heavy alcohol use in the past. . No smoking. Currently at [facility] Family history: Patient cannot tell Physical examination: VITAL SIGNS: Afebrile, 72, 16, 116/61, 99% room air GENERAL: More awake, reclining in bed, somewhat delirious EYES: Pupils equal. Conjunctiva normal. HEENT: External appearance of nose and ears normal, oral cavity dry. NECK: JVD unable to assess; masses not palpable. HEART: First and second heart sounds are normal; no edema. LUNGS: Respiratory rate normal; clear to auscultation. ABDOMEN: Soft, nontender, liver spleen not palpable, no masses palpable. PSYCH: Unable to assess. Mumbling words. MUSCULOSKELETAL:No Clubbing/cyanosis;muscles-grossly intact NEUROLOGICAL: [Cranial nerves grossly intact; no facial asymmetry, moving limbs. Mumbling words INVESTIGATIONS, reviewed in the clinical context: June 19: Sodium 150 potassium 2.9 chloride 123 creatinine 1.27 June 15: Sodium 167 chloride 141 bicarb 19 BUN 35 creatinine 1.55 White count 10.8 hemoglobin 15.6 platelets 278 sodium 173 potassium 3.8 chloride 134 BUN 57 creatinine 2.38 potassium 10.3 UA showing trace protein EKG tracing personally reviewed by me-normal sinus rhythm. Unclear baseline Previous labs reviewed: March 2021: BUN 12 creatinine 0.9 Assessment and plan: -Severe hypernatremia, from free water deficit: Slow to respond Change IV fluids to LR. 1 50 mL an hour. -Acute metabolic encephalopathy from renal failure and delirium: Slow to respond Follow clinically -Schizoaffective disorder, bipolar type. Increase Clozaril 150 mg by mouth daily at bedtime Lamictal 25 mg twice a day Ativan 1 mg by mouth every 8 when necessary Haldol 5 mg by mouth twice a day when necessary -Bipolar disorder See above medications -Acute kidney injury, possibly prerenal: Slow improvement IV fluids -Diabetes mellitus type 2, on oral hypoglycemic Hold metformin Follow Accu-Cheks -Hypothyroid Change Synthroid to IV -Hyperlipidemia Lipitor 40 mg daily at bedtime TriCor 134 mg before supper -Chronic DVT both lower extremity diagnosed on October 19 2020 [place]. Currently on Lovenox 100 mg subcu every 12 Continue current medications. Spoke to Dr. Khan from psychiatry. He is increasing the Clozaril to [address] Lima will be back tomorrow. I will change the IV fluids to LR 1 50 mL an hour. Follow electrolytes. Other medications to continue.
[2021-06-19 19:56] LABS: Glucose,Whole Blood 116 mg/dL (75-99)
[2021-06-19] MEDS: cloZAPine 100 MG TAB PO SCH (20:58)
[2021-06-19] MEDS: FENOFIBRATE 160 MG TAB PO SCH ×2 (20:58→21:22)
[2021-06-19] MEDS: ATORVASTATIN 40 MG TAB PO SCH ×2 (20:59→21:22)
[2021-06-19] MEDS: LEVOTHYROXINE IVP 100 MCG/5 ML VIAL IV SCH (21:00)
[2021-06-20] MEDS: LACTATED RINGERS 1,000 ML IV SCH ×2 (03:51→08:36)
[2021-06-20 06:23] LABS: Glucose,Whole Blood 115 mg/dL (75-99)
[2021-06-20 08:21] LABS: Calcium 9.1 mg/dL (8.4-10.2); Potassium 3.3 mmol/L (3.5-5.1)
[2021-06-20] MEDS: lamoTRIgine 25 MG TAB PO SCH ×2 (08:36→20:28)
[2021-06-20] MEDS: FAMOTIDINE 20 MG/2 ML VIAL IV SCH ×2 (08:36→20:28)
[2021-06-20] MEDS: ENOXAPARIN 100 MG/ML SYRINGE SQ SCH ×2 (08:36→20:28)
[2021-06-20] MEDS: ISOSORBIDE MONONITRATE ER 30 MG TAB.ER.24H PO SCH (08:36)
[2021-06-20] MEDS: CYANOCOBALAMIN 500 MCG TAB PO SCH (08:37)
[2021-06-20 11:34] LABS: Glucose,Whole Blood 107 mg/dL (75-99)
[2021-06-20] MEDS: DEXTROSE 5%-0.45% NACL 1,000 ML IV SCH (11:56)
[2021-06-20 13:37] VITALS: BMI 31.5
--- NOTE | 2021-06-20 14:33 | P.PN ---
Progress Note - Text Progress Note Date: 06/20/21 Interval history: Patient was seen today for psychiatric follow up for delirium and hx of schizophrenia. The patient is currently responsive and is able to respond appropriately to questions. She is currently not reporting any auditory or visual hallucinations. She is denying any paranoia or other delusions. She reports no suicidal or homicidal ideation, intention, and/or plan. The patient has been intermittently adherent with her medications. She continues to have elevated sodium and is only alert and oriented to person and place but not to then sitting up this hospitalization or time. The patient expresses strong desire for discharge. Mental status exam: General Appearance: Patient appears to be obese, stated age is alert, and directable at this time. Behavior: Patient is calm with fair eye contact. Lying in bed without any agitated behavior. Speech: Patient's speech is fluent and nonpressured. Speech is low in volume and nonspontaneous. Mood/Affect: Mood is "fine", affect is congruent and constricted. Suicidality/Homicidality: Patient denies having any suicidal or homicidal ideation intent or plan. Perceptions: Patient denies any auditory or visual hallucinations. Though content/process: [place], monotone, and logical in short conversation. Memory and concentration: Patient is alert and oriented to person and place however not to time or events leading up to this hospitalization. Concentration is grossly poor. Judgment and insight: Poor Assessment/Plan: Continue with current diagnosis. Continue clozapine 150 mg daily at bedtime for psychosis. Continue to treat medically for hypernatremia. Suspect that hypernatremia was a primary cause for the patient's change and altered mentation. She appears to be improving at this time. We will continue to follow and titrate clozapine in response to patient's presentation. Patient however is cleared psychiatrically for discharge. We will follow while here in the hospital.
[2021-06-20 16:48] LABS: Glucose,Whole Blood 186 mg/dL (75-99)
--- NOTE | 2021-06-20 17:11 | P.PN ---
Progress Note - Text Progress Note Date: 06/20/21 Chief Complaint: Abnormal labs History of presenting complaint: This is a 50-year-old patient, who follows with Dr. Saenz . known history of bipolar disorder and schizophrenia. 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 At catatonic state. Had responded well to Ativan treatment. Patient brought in from [facility]. Decreased responsiveness. Labs showed elevated sodium. Sodium is 173 with a chloride of 134. Also creatinine is up to 2.38. Patient rather delirious. Lethargic. Not able to give much of a history. Rest of the history as obtained per the ER physician. See the documentation. Patient started on IV fluids. Admitted with severe hypernatremia, acute kidney injury, acute metabolic encephalopathy/delirium. Started on D5 0.45. June 19: Getting D5 0.45. I changed IV fluids to LR. Sodium 150. Patient more awake. Mumbling. I did give the patient bite off on her burger. She daily twice and then the food ruled out from her mouth. Spoke to Dr. Khan from psychiatry. Increased patient's Clozaril to 150 mg at night. Patient is taking her medications intermittently. After talking to the nurse. Barely has been eating. Placed an order for all meals to be assisted. Also change the diet to chopped June 20: Laying in bed. Awake. Psychotic. Talking to people in the room. Poor oral intake. Taking her pills. We will change IV fluids to D5 0.45. Sodium 155 today. Spoke to the nurse to make sure the fluid is running. When I came to the room the IV line was kinked. Review of systems cannot be obtained patient is delirious/psychotic Active Medications Acetaminophen (Acetaminophen Tab 325 Mg Tab) 650 mg PO Q6H PRN PRN Reason: Fever and/ or Pain Last Admin: 06/19/21 20:57 Dose: 650 mg Documented by: Atorvastatin Calcium (Atorvastatin 40 Mg Tab) 40 mg PO HS@2100 [facility] Last Admin: 06/19/21 21:22 Dose: Not Given Documented by: Calcium Carbonate/Glycine (Calcium Carbonate 500 Mg Chewable) 1,000 mg PO Q4HR PRN PRN Reason: Dyspepsia Clozapine (Clozapine 100 Mg Tab) 150 mg PO HS [facility] Stop: 06/21/21 23:00 Last Admin: 06/19/21 20:58 Dose: 150 mg Documented by: Cyanocobalamin (Cyanocobalamin 500 Mcg Tab) 1,000 mcg PO DAILY@0900 [facility] Last Admin: 06/20/21 08:37 Dose: Not Given Documented by: Enoxaparin Sodium (Enoxaparin 100 Mg/Ml Syringe) 100 mg SQ Q12H [facility] Last Admin: 06/20/21 08:36 Dose: 100 mg Documented by: Famotidine (Famotidine 20 Mg/2 Ml Vial) 20 mg IV Q12HR [facility] Last Admin: 06/20/21 08:36 Dose: 20 mg Documented by: Fenofibrate (Fenofibrate 160 Mg Tab) 160 mg PO HS@2100 [facility] Last Admin: 06/19/21 21:22 Dose: Not Given Documented by: Haloperidol (Haloperidol 5 Mg Tab) 5 mg PO BID PRN PRN Reason: Psychosis Haloperidol Lactate (Haloperidol Lactate 5 Mg/Ml 1 Ml Vial) 5 mg IM Q12H PRN PRN Reason: Psychosis Dextrose/Sodium Chloride (Dextrose 5%-1/2ns Iv Soln) 1,000 mls @ 150 mls/hr IV .Q6H40M [facility] Last Admin: 06/20/21 11:56 Dose: 150 mls/hr Documented by: Isosorbide Mononitrate (Isosorbide Mononitrate Er 30 Mg Tab.Er.24h) 30 mg PO DAILY@0900 [facility] Last Admin: 06/20/21 08:36 Dose: 30 mg Documented by: Lactulose (Lactulose 20 Gm/30 Ml Cup) 20 gm PO DAILY PRN PRN Reason: Constipation Lamotrigine (Lamotrigine 25 Mg Tab) 25 mg PO BID@0900,2100 [facility] Last Admin: 06/20/21 08:36 Dose: 25 mg Documented by: Levothyroxine Sodium (Levothyroxine Ivp 100 Mcg/5 Ml Vial) 75 mcg IV Q48H [facility] Last Admin: 06/19/21 21:00 Dose: 75 mcg Documented by: Melatonin (Melatonin 3 Mg Tablet) 3 mg PO HS PRN PRN Reason: Insomnia Miscellaneous Information (Potassium Replacement Protocol 1 Each Misc) 1 each MISCELLANE DAILY PRN; Protocol PRN Reason: Per Protocol Miscellaneous Information (Potassium Replacement Protocol 1 Each Misc) 1 each MISCELLANE DAILY PRN; Protocol PRN Reason: Per Protocol Miscellaneous Information (Potassium Replacement Protocol 1 Each Misc) 1 each MISCELLANE DAILY PRN; Protocol PRN Reason: Per Protocol Naloxone HCl (Naloxone 0.4 Mg/Ml 1 Ml Vial) 0.2 mg IV Q2M PRN PRN Reason: Opioid Reversal Ondansetron HCl (Ondansetron 4 Mg/2 Ml Vial) 4 mg IVP Q8HR PRN PRN Reason: Nausea And Vomiting Past medical history to include: Hypertension, hypothyroid, bipolar disorder, schizophrenia. excessive alcohol use in the past. No smoking. Psychosis, catatonic-like syndrome Social history: Heavy alcohol use in the past. . No smoking. Currently at [facility] Family history: Patient cannot tell Physical examination: VITAL SIGNS: 98.2, 97, 16, 113/59, 96% room air GENERAL: awake, reclining in bed, talking EYES: Pupils equal. Conjunctiva normal. HEENT: External appearance of nose and ears normal, oral cavity dry. NECK: JVD unable to assess; masses not palpable. HEART: First and second heart sounds are normal; no edema. LUNGS: Respiratory rate normal; clear to auscultation. ABDOMEN: Soft, nontender, liver spleen not palpable, no masses palpable. PSYCH: Appears psychotic. Speaking with invisible people. MUSCULOSKELETAL:No Clubbing/cyanosis;muscles-grossly intact NEUROLOGICAL: [Cranial nerves grossly intact; no facial asymmetry, moving limbs. Mumbling words INVESTIGATIONS, reviewed in the clinical context: June 20: Sodium 155 potassium 3.3 creatinine 1.19 June 19: Sodium 150 potassium 2.9 chloride 123 creatinine 1.27 June 15: Sodium 167 chloride 141 bicarb 19 BUN 35 creatinine 1.55 White count 10.8 hemoglobin 15.6 platelets 278 sodium 173 potassium 3.8 chloride 134 BUN 57 creatinine 2.38 potassium 10.3 UA showing trace protein EKG tracing personally reviewed by me-normal sinus rhythm. Unclear baseline Previous labs reviewed: March 2021: BUN 12 creatinine 0.9 Assessment and plan: -Severe hypernatremia, from free water deficit: Some worsening Change IV fluids to D5 0.45.. 1 50 mL an hour. Spoke to the nurse to make sure that the fluids are running properly. -Acute metabolic encephalopathy from renal failure and delirium: Slow to respond Follow clinically -Schizoaffective disorder, bipolar type. Psychosis: Slow to respond Clozaril 150 mg by mouth daily at bedtime Lamictal 25 mg twice a day Ativan 1 mg by mouth every 8 when necessary Haldol 5 mg by mouth twice a day when necessary -Bipolar disorder See above medications -Acute kidney injury, possibly prerenal: Better Continue IV fluids -Diabetes mellitus type 2, on oral hypoglycemic Hold metformin Follow Accu-Cheks -Hypothyroid Synthroid to IV -Hyperlipidemia Lipitor 40 mg daily at bedtime TriCor 134 mg before supper -Chronic DVT both lower extremity diagnosed on October 19 2020 [place]. Currently on Lovenox 100 mg subcu every 12 Continue current medications. Patient taking her medications. IV fluids changed to D5.45. Spoke to nurse to have assisted feeding. Follow labs.
[2021-06-20] MEDS: ATORVASTATIN 40 MG TAB PO SCH (20:27)
[2021-06-20] MEDS: cloZAPine 100 MG TAB PO SCH (20:27)
[2021-06-20] MEDS: FENOFIBRATE 160 MG TAB PO SCH (20:27)
[2021-06-21] MEDS: DEXTROSE 5%-0.45% NACL 1,000 ML IV SCH ×5 (04:11→21:25)
[2021-06-21 08:51] LABS: Basophils % (A) 0 %; Eosinophils % (A) 0 %; Hypochromasia Marked; Lymphocytes # (A) 0.7 k/uL (1.0-4.8); Lymphocytes % (A) 19 %; Macrocytosis Moderate; Mean Platelet Volume 10.9; Monocytes # (A) 0.2 k/uL (0-1.0); Monocytes % (A) 6 %; Neutrophils # (A) 2.6 k/uL (1.3-7.7); Neutrophils % (A) 73 %
[2021-06-21 09:25] LABS: Glucose,Whole Blood 164 mg/dL (75-99)
[2021-06-21] MEDS: ISOSORBIDE MONONITRATE ER 30 MG TAB.ER.24H PO SCH (09:37)
[2021-06-21] MEDS: ENOXAPARIN 100 MG/ML SYRINGE SQ SCH ×2 (09:37→09:38)
[2021-06-21] MEDS: lamoTRIgine 25 MG TAB PO SCH ×2 (09:38→21:22)
[2021-06-21] MEDS: FAMOTIDINE 20 MG/2 ML VIAL IV SCH (09:38)
[2021-06-21] MEDS: CYANOCOBALAMIN 500 MCG TAB PO SCH (09:38)
[2021-06-21 10:23] LABS: Calcium 8.9 mg/dL (8.4-10.2); Potassium 3.2 mmol/L (3.5-5.1)
[2021-06-21] MEDS ORDERED: Potassium Replacement Protocol 1 EACH MISC MISCELLANE PRN ×2 (10:43→15:02)
[2021-06-21 10:47] LABS: Basophils % (A) 0 %; Eosinophils % (A) 0 %; HCT 36.8 % (34.0-46.0); HGB 11.9 gm/dL (11.4-16.0); Hypochromasia Slight; Lymphocytes # (A) 0.8 k/uL (1.0-4.8); Lymphocytes % (A) 20 %; MCH 29.6 pg (25.0-35.0); MCHC 32.5 g/dL (31.0-37.0); Monocytes # (A) 0.3 k/uL (0-1.0); Monocytes % (A) 6 %; Neutrophils # (A) 3.1 k/uL (1.3-7.7); Neutrophils % (A) 73 %; Platelet Count 130 k/uL (150-450); RBC 4.04 m/uL (3.80-5.40); RDW 15.3 % (11.5-15.5); WBC 4.3 k/uL (3.8-10.6)
[2021-06-21 10:52] LABS: MCV 91.1 fL (80.0-100.0)
[2021-06-21 10:54] LABS: HGB 9.4 gm/dL (11.4-16.0)
[2021-06-21 10:55] LABS: WBC 3.5 k/uL (3.8-10.6)
[2021-06-21 10:56] LABS: HCT 33.3 % (34.0-46.0)
[2021-06-21 10:57] LABS: MCH 29.2 pg (25.0-35.0); MCV 104.1 fL (80.0-100.0)
[2021-06-21 10:58] LABS: MCHC 28.1 g/dL (31.0-37.0); Platelet Count 100 k/uL (150-450)
[2021-06-21 11:00] LABS: RDW 14.9 % (11.5-15.5)
[2021-06-21 11:31] LABS: Glucose,Whole Blood 176 mg/dL (75-99)
[2021-06-21] MEDS: POTASSIUM CHLORIDE 20 MEQ in WATER FOR INJECTION 1 100ML.BAG IVPB SCH ×3 (12:57→16:54)
[2021-06-21 16:38] LABS: Glucose,Whole Blood 124 mg/dL (75-99)
[2021-06-21 20:23] LABS: Glucose,Whole Blood 183 mg/dL (75-99)
--- NOTE | 2021-06-21 20:44 | P.PN ---
Progress Note - Text Progress Note Date: 06/21/21 Chief Complaint: Abnormal labs History of presenting complaint: This is a 50-year-old patient, who follows with Dr. Saenz . known history of bipolar disorder and schizophrenia. 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 At catatonic state. Had responded well to Ativan treatment. Patient brought in from [facility]. Decreased responsiveness. Labs showed elevated sodium. Sodium is 173 with a chloride of 134. Also creatinine is up to 2.38. Patient rather delirious. Lethargic. Not able to give much of a history. Rest of the history as obtained per the ER physician. See the documentation. Patient started on IV fluids. Admitted with severe hypernatremia, acute kidney injury, acute metabolic encephalopathy/delirium. Started on D5 0.45. June 19: Getting D5 0.45. I changed IV fluids to LR. Sodium 150. Patient more awake. Mumbling. I did give the patient bite off on her burger. She daily twice and then the food ruled out from her mouth. Spoke to Dr. Khan from psychiatry. Increased patient's Clozaril to 150 mg at night. Patient is taking her medications intermittently. After talking to the nurse. Barely has been eating. Placed an order for all meals to be assisted. Also change the diet to chopped June 20: Laying in bed. Awake. Psychotic. Talking to people in the room. Poor oral intake. Taking her pills. We will change IV fluids to D5 0.45. Sodium 155 today. Spoke to the nurse to make sure the fluid is running. When I came to the room the IV line was kinked. June 21: Laying in bed. Awake. Talking with not making much sense. Spoke to theaide . Not eating. Spoke to nurse daily. Seemed to IV access became subcutaneous. Midline ordered. IV fluids increased. Sodium still on the higher side. Patient is taking her medications. Review of systems cannot be obtained patient is delirious/psychotic Active Medications Acetaminophen (Acetaminophen Tab 325 Mg Tab) 650 mg PO Q6H PRN PRN Reason: Fever and/ or Pain Last Admin: 06/19/21 20:57 Dose: 650 mg Documented by: Atorvastatin Calcium (Atorvastatin 40 Mg Tab) 40 mg PO HS@2100 [facility] Last Admin: 06/20/21 20:27 Dose: 40 mg Documented by: Calcium Carbonate/Glycine (Calcium Carbonate 500 Mg Chewable) 1,000 mg PO Q4HR PRN PRN Reason: Dyspepsia Clozapine (Clozapine 100 Mg Tab) 150 mg PO HS [facility] Stop: 06/28/21 23:00 Last Admin: 06/20/21 20:27 Dose: 150 mg Documented by: Cyanocobalamin (Cyanocobalamin 500 Mcg Tab) 1,000 mcg PO DAILY@0900 [facility] Last Admin: 06/21/21 09:38 Dose: 1,000 mcg Documented by: Enoxaparin Sodium (Enoxaparin 100 Mg/Ml Syringe) 100 mg SQ Q12H [facility] Last Admin: 06/21/21 09:38 Dose: 100 mg Documented by: Famotidine (Famotidine 20 Mg Tab) 20 mg PO BID [facility] Fenofibrate (Fenofibrate 160 Mg Tab) 160 mg PO HS@2100 [facility] Last Admin: 06/20/21 20:27 Dose: 160 mg Documented by: Haloperidol (Haloperidol 5 Mg Tab) 5 mg PO BID PRN PRN Reason: Psychosis Haloperidol Lactate (Haloperidol Lactate 5 Mg/Ml 1 Ml Vial) 5 mg IM Q12H PRN PRN Reason: Psychosis Dextrose/Sodium Chloride (Dextrose 5%-1/2ns Iv Soln) 1,000 mls @ 200 mls/hr IV .Q5H [facility] Last Admin: 06/21/21 16:53 Dose: 200 mls/hr Documented by: Isosorbide Mononitrate (Isosorbide Mononitrate Er 30 Mg Tab.Er.24h) 30 mg PO DAILY@0900 [facility] Last Admin: 06/21/21 09:37 Dose: 30 mg Documented by: Lactulose (Lactulose 20 Gm/30 Ml Cup) 20 gm PO DAILY PRN PRN Reason: Constipation Lamotrigine (Lamotrigine 25 Mg Tab) 25 mg PO BID@0900,2100 [facility] Last Admin: 06/21/21 09:38 Dose: 25 mg Documented by: Levothyroxine Sodium (Levothyroxine 88 Mcg Tab) 88 mcg PO DAILY@0630 [facility] Melatonin (Melatonin 3 Mg Tablet) 3 mg PO HS PRN PRN Reason: Insomnia Miscellaneous Information (Potassium Replacement Protocol 1 Each Misc) 1 each MISCELLANE DAILY PRN; Protocol PRN Reason: Per Protocol Miscellaneous Information (Potassium Replacement Protocol 1 Each Misc) 1 each MISCELLANE DAILY PRN; Protocol PRN Reason: Per Protocol Miscellaneous Information (Potassium Replacement Protocol 1 Each Misc) 1 each MISCELLANE DAILY PRN; Protocol PRN Reason: Per Protocol Miscellaneous Information (Potassium Replacement Protocol 1 Each Misc) 1 each MISCELLANE DAILY PRN; Protocol PRN Reason: Per Protocol Miscellaneous Information (Potassium Replacement Protocol 1 Each Misc) 1 each MISCELLANE DAILY PRN; Protocol PRN Reason: Per Protocol Naloxone HCl (Naloxone 0.4 Mg/Ml 1 Ml Vial) 0.2 mg IV Q2M PRN PRN Reason: Opioid Reversal Ondansetron HCl (Ondansetron 4 Mg/2 Ml Vial) 4 mg IVP Q8HR PRN PRN Reason: Nausea And Vomiting Past medical history to include: Hypertension, hypothyroid, bipolar disorder, schizophrenia. excessive alcohol use in the past. No smoking. Psychosis, catatonic-like syndrome Social history: Heavy alcohol use in the past. . No smoking. Currently at [facility] Family history: Patient cannot tell Physical examination: VITAL SIGNS: 98.5, 75, 16, 106/73, 97% room air GENERAL: awake, reclining in bed, talking EYES: Pupils equal. Conjunctiva normal. HEENT: External appearance of nose and ears normal, oral cavity dry. NECK: JVD unable to assess; masses not palpable. HEART: First and second heart sounds are normal; no edema. LUNGS: Respiratory rate normal; clear to auscultation. ABDOMEN: Soft, nontender, liver spleen not palpable, no masses palpable. PSYCH: Patient does speak. Does not correlate. More awake. MUSCULOSKELETAL:No Clubbing/cyanosis;muscles-grossly intact NEUROLOGICAL: [Cranial nerves grossly intact; no facial asymmetry, moving limbs. Mumbling words INVESTIGATIONS, reviewed in the clinical context: June 21: White count 4.3 hemoglobin 11.9 sodium 154 potassium 3.2 creatinine 1.19 serum osmolality 322 June 20: Sodium 155 potassium 3.3 creatinine 1.19 June 19: Sodium 150 potassium 2.9 chloride 123 creatinine 1.27 June 15: Sodium 167 chloride 141 bicarb 19 BUN 35 creatinine 1.55 White count 10.8 hemoglobin 15.6 platelets 278 sodium 173 potassium 3.8 chloride 134 BUN 57 creatinine 2.38 potassium 10.3 UA showing trace protein EKG tracing personally reviewed by -normal sinus rhythm. Unclear baseline Previous labs reviewed: March 2021: BUN 12 creatinine 0.9 Assessment and plan: -Severe hypernatremia, from free water deficit: Not improving Increase IV fluids to 200 mL an hour. Spoke to the nurse to make sure that the fluids are running properly. -Acute metabolic encephalopathy from renal failure and delirium: Some improvement Follow clinically -Schizoaffective disorder, bipolar type. Psychosis: Slow to respond Clozaril 150 mg by mouth daily at bedtime Lamictal 25 mg twice a day Ativan 1 mg by mouth every 8 when necessary Haldol 5 mg by mouth twice a day when necessary -Bipolar disorder See above medications -Acute kidney injury, possibly prerenal: Better Continue IV fluids -Diabetes mellitus type 2, on oral hypoglycemic Hold metformin Follow Accu-Cheks -Hypothyroid Synthroid to IV -Hyperlipidemia Lipitor 40 mg daily at bedtime TriCor 134 mg before supper -Chronic DVT both lower extremity diagnosed on October 19 2020 [place]. Currently on Lovenox 100 mg subcu every 12 Reinforced patient to be assisted with feeding from meals. Increase IV fluids. Midline. Medications to continue. Slow improvement
[2021-06-21] MEDS: ATORVASTATIN 40 MG TAB PO SCH (21:22)
[2021-06-21] MEDS: FAMOTIDINE 20 MG TAB PO SCH (21:22)
[2021-06-21] MEDS: FENOFIBRATE 160 MG TAB PO SCH (21:22)
[2021-06-21] MEDS: cloZAPine 100 MG TAB PO SCH (21:22)
[2021-06-22] MEDS: DEXTROSE 5%-0.45% NACL 1,000 ML IV SCH ×5 (00:27→20:05)
[2021-06-22] MEDS: LEVOTHYROXINE 88 MCG TAB PO SCH (05:38)
[2021-06-22 05:53] LABS: Glucose,Whole Blood 197 mg/dL (75-99)
[2021-06-22 08:40] LABS: Calcium 8.7 mg/dL (8.4-10.2); Potassium 3.1 mmol/L (3.5-5.1)
[2021-06-22] MEDS: ISOSORBIDE MONONITRATE ER 30 MG TAB.ER.24H PO SCH (09:35)
[2021-06-22] MEDS: FAMOTIDINE 20 MG TAB PO SCH ×2 (09:35→21:08)
[2021-06-22] MEDS: lamoTRIgine 25 MG TAB PO SCH ×2 (09:35→21:08)
[2021-06-22] MEDS: CYANOCOBALAMIN 500 MCG TAB PO SCH (09:35)
[2021-06-22] MEDS: ENOXAPARIN 100 MG/ML SYRINGE SQ SCH ×2 (09:35→21:40)
[2021-06-22 11:45] LABS: Glucose,Whole Blood 167 mg/dL (75-99)
--- NOTE | 2021-06-22 14:11 | P.PN ---
Progress Note - Text Progress Note Date: 06/22/21 Interval history: Patient was seen today for psychiatric follow up for delirium and hx of schizophrenia. The patient is currently able to participate in conversation and the psychiatric interview. She is currently denying any suicidal or homicidal ideation, intention, and/or plan. She does endorse some visual disturbances however appears to be unbothered by them at this time. At baseline, the patient is known to endorse some psychotic symptoms however does not react to them. She has been adherent with her medications and is not reporting any significant side effects at this time. She reports no issues regarding her sleep. She was encouraged to maintain hydration and to address her appetite. Mental status exam: General Appearance: Patient appears to be obese, stated age is alert, and directable at this time. Behavior: Patient is calm with fair eye contact. Lying in bed without any agitated behavior. Speech: Patient's speech is fluent and nonpressured. Speech is low in volume and nonspontaneous. Mood/Affect: Mood is "ok", affect is congruent and blunted. Suicidality/Homicidality: Patient denies having any suicidal or homicidal ideation intent or plan. Perceptions: Patient denies any auditory or visual hallucinations. Though content/process: [place], monotone, and logical in short conversation. Memory and concentration: Patient is alert and oriented to person and place however not to time or events leading up to this hospitalization. Concentration is fair. Judgment and insight: At baseline poor. Assessment/Plan: Continue with current diagnosis. Continue clozapine 150 mg daily at bedtime for psychosis. Continue to treat medically for hypernatremia. Suspect that hypernatremia was a primary cause for the patient's change and altered mentation. The patient is presenting at baseline at this time. Psychiatry will sign off for now. Please contact us with any questions or concerns.
--- NOTE | 2021-06-22 16:25 | P.PN ---
Progress Note - Text Progress Note Date: 06/22/21 Chief Complaint: Abnormal labs History of presenting complaint: This is a 50-year-old patient, who follows with Dr. Saenz . known history of bipolar disorder and schizophrenia. 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 At catatonic state. Had responded well to Ativan treatment. Patient brought in from [facility]. Decreased responsiveness. Labs showed elevated sodium. Sodium is 173 with a chloride of 134. Also creatinine is up to 2.38. Patient rather delirious. Lethargic. Not able to give much of a history. Rest of the history as obtained per the ER physician. See the documentation. Patient started on IV fluids. Admitted with severe hypernatremia, acute kidney injury, acute metabolic encephalopathy/delirium. Started on D5 0.45. June 19: Getting D5 0.45. I changed IV fluids to LR. Sodium 150. Patient more awake. Mumbling. I did give the patient bite off on her burger. She daily twice and then the food ruled out from her mouth. Spoke to Dr. Khan from psychiatry. Increased patient's Clozaril to 150 mg at night. Patient is taking her medications intermittently. After talking to the nurse. Barely has been eating. Placed an order for all meals to be assisted. Also change the diet to chopped June 20: Laying in bed. Awake. Psychotic. Talking to people in the room. Poor oral intake. Taking her pills. We will change IV fluids to D5 0.45. Sodium 155 today. Spoke to the nurse to make sure the fluid is running. When I came to the room the IV line was kinked. June 21: Laying in bed. Awake. Talking with not making much sense. Spoke to theaide . Not eating. Spoke to nurse daily. Seemed to IV access became subcutaneous. Midline ordered. IV fluids increased. Sodium still on the higher side. Patient is taking her medications. June 22: Patient not eating. Refusing food. I did try to feed the patient. To 3 teaspoons. She is drinking her shakes. Taking her medications. Getting IV fluids. Sodium 154 Review of systems cannot be obtained patient is barely answering questions Active Medications Acetaminophen (Acetaminophen Tab 325 Mg Tab) 650 mg PO Q6H PRN PRN Reason: Fever and/ or Pain Last Admin: 06/19/21 20:57 Dose: 650 mg Documented by: Atorvastatin Calcium (Atorvastatin 40 Mg Tab) 40 mg PO HS@2100 [facility] Last Admin: 06/21/21 21:22 Dose: 40 mg Documented by: Calcium Carbonate/Glycine (Calcium Carbonate 500 Mg Chewable) 1,000 mg PO Q4HR PRN PRN Reason: Dyspepsia Clozapine (Clozapine 100 Mg Tab) 150 mg PO HS [facility] Stop: 06/28/21 23:00 Last Admin: 06/21/21 21:22 Dose: 150 mg Documented by: Cyanocobalamin (Cyanocobalamin 500 Mcg Tab) 1,000 mcg PO DAILY@0900 [facility] Last Admin: 06/22/21 09:35 Dose: 1,000 mcg Documented by: Enoxaparin Sodium (Enoxaparin 100 Mg/Ml Syringe) 100 mg SQ Q12H [facility] Last Admin: 06/22/21 09:35 Dose: 100 mg Documented by: Famotidine (Famotidine 20 Mg Tab) 20 mg PO BID [facility] Last Admin: 06/22/21 09:35 Dose: 20 mg Documented by: Fenofibrate (Fenofibrate 160 Mg Tab) 160 mg PO HS@2099 [facility] Last Admin: 06/21/21 21:22 Dose: 160 mg Documented by: Haloperidol (Haloperidol 5 Mg Tab) 5 mg PO BID PRN PRN Reason: Psychosis Haloperidol Lactate (Haloperidol Lactate 5 Mg/Ml 1 Ml Vial) 5 mg IM Q12H PRN PRN Reason: Psychosis Dextrose/Sodium Chloride (Dextrose 5%-1/2ns Iv Soln) 1,000 mls @ 200 mls/hr IV .Q5H [facility] Last Admin: 06/22/21 09:36 Dose: 200 mls/hr Documented by: Isosorbide Mononitrate (Isosorbide Mononitrate Er 30 Mg Tab.Er.24h) 30 mg PO DAILY@0900 [facility] Last Admin: 06/22/21 09:35 Dose: 30 mg Documented by: Lactulose (Lactulose 20 Gm/30 Ml Cup) 20 gm PO DAILY PRN PRN Reason: Constipation Lamotrigine (Lamotrigine 25 Mg Tab) 25 mg PO BID@0900,2100 [facility] Last Admin: 06/22/21 09:35 Dose: 25 mg Documented by: Levothyroxine Sodium (Levothyroxine 88 Mcg Tab) 88 mcg PO DAILY@0630 [facility] Last Admin: 06/22/21 05:38 Dose: 88 mcg Documented by: Melatonin (Melatonin 3 Mg Tablet) 3 mg PO HS PRN PRN Reason: Insomnia Miscellaneous Information (Potassium Replacement Protocol 1 Each Misc) 1 each MISCELLANE DAILY PRN; Protocol PRN Reason: Per Protocol Miscellaneous Information (Potassium Replacement Protocol 1 Each Misc) 1 each MISCELLANE DAILY PRN; Protocol PRN Reason: Per Protocol Miscellaneous Information (Potassium Replacement Protocol 1 Each Misc) 1 each MISCELLANE DAILY PRN; Protocol PRN Reason: Per Protocol Miscellaneous Information (Potassium Replacement Protocol 1 Each Misc) 1 each MISCELLANE DAILY PRN; Protocol PRN Reason: Per Protocol Miscellaneous Information (Potassium Replacement Protocol 1 Each Misc) 1 each MISCELLANE DAILY PRN; Protocol PRN Reason: Per Protocol Naloxone HCl (Naloxone 0.4 Mg/Ml 1 Ml Vial) 0.2 mg IV Q2M PRN PRN Reason: Opioid Reversal Ondansetron HCl (Ondansetron 4 Mg/2 Ml Vial) 4 mg IVP Q8HR PRN PRN Reason: Nausea And Vomiting Past medical history to include: Hypertension, hypothyroid, bipolar disorder, schizophrenia. excessive alcohol use in the past. No smoking. Psychosis, catatonic-like syndrome Social history: Heavy alcohol use in the past. . No smoking. Currently at [facility] Family history: Patient cannot tell Physical examination: VITAL SIGNS: 97.8, 75, 16, 125-78, 97% room air GENERAL: awake, reclining in bed, will talk occasionally. EYES: Pupils equal. Conjunctiva normal. HEENT: External appearance of nose and ears normal, oral cavity dry. NECK: JVD unable to assess; masses not palpable. HEART: First and second heart sounds are normal; no edema. LUNGS: Respiratory rate normal; clear to auscultation. ABDOMEN: Soft, nontender, liver spleen not palpable, no masses palpable. PSYCH: Patient does speak. Does not correlate. More awake. MUSCULOSKELETAL:No Clubbing/cyanosis;muscles-grossly intact NEUROLOGICAL: [Cranial nerves grossly intact; no facial asymmetry, moving limbs. Mumbling words INVESTIGATIONS, reviewed in the clinical context: June 22: Sodium 154 potassium 3.1 BUN 6 creatinine 1.16 June 21: White count 4.3 hemoglobin 11.9 sodium 154 potassium 3.2 creatinine 1.19 serum osmolality 322 June 20: Sodium 155 potassium 3.3 creatinine 1.19 June 19: Sodium 150 potassium 2.9 chloride 123 creatinine 1.27 June 15: Sodium 167 chloride 141 bicarb 19 BUN 35 creatinine 1.55 White count 10.8 hemoglobin 15.6 platelets 278 sodium 173 potassium 3.8 chloride 134 BUN 57 creatinine 2.38 potassium 10.3 UA showing trace protein EKG tracing personally reviewed by me-normal sinus rhythm. Unclear baseline Previous labs reviewed: March 2021: BUN 12 creatinine 0.9 Assessment and plan: -Severe hypernatremia, from free water deficit: Slow to respond Continue IV fluids to 200 mL an hour. Spoke to the nurse to make sure that the fluids are running properly. -Acute metabolic encephalopathy from renal failure and delirium: Better Follow clinically -Schizoaffective disorder, bipolar type. Psychosis: Clozaril 150 mg by mouth daily at bedtime Lamictal 25 mg twice a day Ativan 1 mg by mouth every 8 when necessary Haldol 5 mg by mouth twice a day when necessary -Bipolar disorder See above medications -Acute kidney injury, possibly prerenal: Better Continue IV fluids -Diabetes mellitus type 2, on oral hypoglycemic Hold metformin Follow Accu-Cheks -Hypothyroid Synthroid to IV -Hyperlipidemia Lipitor 40 mg daily at bedtime TriCor 134 mg before supper -Chronic DVT both lower extremity diagnosed on October 19 2020 [place]. Currently on Lovenox 100 mg subcu every 12 It is difficult to say patient has anorexia or she simply refusing to eat. She does drink on her shakes and ensure. But refuses to eat. I wonder the nurse look inside the mouth but patient-doctor this to the same. Continue with IV fluids. Continue which shakes. Patient not ready for discharge.
[2021-06-22 16:38] LABS: Glucose,Whole Blood 155 mg/dL (75-99)
[2021-06-22 20:18] LABS: Glucose,Whole Blood 147 mg/dL (75-99)
[2021-06-22] MEDS: FENOFIBRATE 160 MG TAB PO SCH (21:08)
[2021-06-22] MEDS: cloZAPine 100 MG TAB PO SCH (21:08)
[2021-06-22] MEDS: ATORVASTATIN 40 MG TAB PO SCH (21:08)
[2021-06-23] MEDS: DEXTROSE 5%-0.45% NACL 1,000 ML IV SCH ×5 (00:59→21:43)
[2021-06-23 07:28] LABS: Glucose,Whole Blood 188 mg/dL (75-99)
[2021-06-23] MEDS: ISOSORBIDE MONONITRATE ER 30 MG TAB.ER.24H PO SCH (08:39)
[2021-06-23] MEDS: lamoTRIgine 25 MG TAB PO SCH ×2 (08:39→20:44)
[2021-06-23] MEDS: CYANOCOBALAMIN 500 MCG TAB PO SCH (08:39)
[2021-06-23] MEDS: FAMOTIDINE 20 MG TAB PO SCH ×2 (08:39→20:44)
[2021-06-23] MEDS: ENOXAPARIN 100 MG/ML SYRINGE SQ SCH ×2 (08:46→20:44)
[2021-06-23] MEDS: LEVOTHYROXINE 88 MCG TAB PO SCH (10:41)
[2021-06-23 11:54] LABS: Glucose,Whole Blood 183 mg/dL (75-99)
[2021-06-23 15:27] LABS: Basophils % (A) 0 %; Eosinophils % (A) 0 %; HCT 33.8 % (34.0-46.0); HGB 10.9 gm/dL (11.4-16.0); Hypochromasia Slight; Lymphocytes # (A) 0.9 k/uL (1.0-4.8); Lymphocytes % (A) 23 %; MCH 29.2 pg (25.0-35.0); MCHC 32.3 g/dL (31.0-37.0); MCV 90.5 fL (80.0-100.0); Mean Platelet Volume 9.8; Monocytes # (A) 0.2 k/uL (0-1.0); Monocytes % (A) 6 %; Neutrophils # (A) 2.8 k/uL (1.3-7.7); Neutrophils % (A) 69 %; Platelet Count 122 k/uL (150-450); RBC 3.73 m/uL (3.80-5.40); RDW 14.8 % (11.5-15.5)
[2021-06-23 15:39] LABS: African American GFR (CKD) 78 (>60 ml/min/1.73 sqM); Anion Gap 5 mmol/L; Blood Urea Nitrogen 3 mg/dL (7-17); Calcium 8.5 mg/dL (8.4-10.2); Carbon Dioxide 23 mmol/L (22-30); Chloride 124 mmol/L (98-107); Glucose 181 mg/dL (74-99); Non-African American GFR(CKD) 68 (>60 ml/min/1.73 sqM); Sodium 152 mmol/L (137-145)
[2021-06-23 17:23] LABS: Glucose,Whole Blood 154 mg/dL (75-99)
[2021-06-23] MEDS: POTASSIUM CHLORIDE 10 MEQ in WATER FOR INJECTION 1 100ML.BAG IVPB SCH ×4 (17:56→22:19)
--- NOTE | 2021-06-23 18:13 | P.PN ---
Progress Note - Text Progress Note Date: 06/23/21 Chief Complaint: Abnormal labs History of presenting complaint: This is a 50-year-old patient, who follows with Dr. Saenz . known history of bipolar disorder and schizophrenia. 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 At catatonic state. Had responded well to Ativan treatment. Patient brought in from [facility]. Decreased responsiveness. Labs showed elevated sodium. Sodium is 173 with a chloride of 134. Also creatinine is up to 2.38. Patient rather delirious. Lethargic. Not able to give much of a history. Rest of the history as obtained per the ER physician. See the documentation. Patient started on IV fluids. Admitted with severe hypernatremia, acute kidney injury, acute metabolic encephalopathy/delirium. Started on D5 0.45. June 19: Getting D5 0.45. I changed IV fluids to LR. Sodium 150. Patient more awake. Mumbling. I did give the patient bite off on her burger. She daily twice and then the food ruled out from her mouth. Spoke to Dr. Khan from psychiatry. Increased patient's Clozaril to 150 mg at night. Patient is taking her medications intermittently. After talking to the nurse. Barely has been eating. Placed an order for all meals to be assisted. Also change the diet to chopped June 20: Laying in bed. Awake. Psychotic. Talking to people in the room. Poor oral intake. Taking her pills. We will change IV fluids to D5 0.45. Sodium 155 today. Spoke to the nurse to make sure the fluid is running. When I came to the room the IV line was kinked. June 21: Laying in bed. Awake. Talking with not making much sense. Spoke to theaide . Not eating. Spoke to nurse daily. Seemed to IV access became subcutaneous. Midline ordered. IV fluids increased. Sodium still on the higher side. Patient is taking her medications. June 22: Patient not eating. Refusing food. I did try to feed the patient. To 3 teaspoons. She is drinking her shakes. Taking her medications. Getting IV fluids. Sodium 154 June 23: Patient eating small amounts intermittently. Getting IV fluids. Sodium 152 not ready for discharge. Only occasionally will answer some questions, often will not make sense. Otherwise doesn't talk. Review of systems cannot be obtained patient is barely answering questions Active Medications Acetaminophen (Acetaminophen Tab 325 Mg Tab) 650 mg PO Q6H PRN PRN Reason: Fever and/ or Pain Last Admin: 06/19/21 20:57 Dose: 650 mg Documented by: Atorvastatin Calcium (Atorvastatin 40 Mg Tab) 40 mg PO HS@2100 [facility] Last Admin: 06/22/21 21:08 Dose: 40 mg Documented by: Calcium Carbonate/Glycine (Calcium Carbonate 500 Mg Chewable) 1,000 mg PO Q4HR PRN PRN Reason: Dyspepsia Clozapine (Clozapine 100 Mg Tab) 150 mg PO [facility] Stop: 06/28/21 23:00 Last Admin: 06/22/21 21:08 Dose: 150 mg Documented by: Cyanocobalamin (Cyanocobalamin 500 Mcg Tab) 1,000 mcg PO DAILY@0900 [facility] Last Admin: 06/23/21 08:39 Dose: 1,000 mcg Documented by: Enoxaparin Sodium (Enoxaparin 100 Mg/Ml Syringe) 100 mg SQ Q12H [facility] Last Admin: 06/23/21 08:46 Dose: 100 mg Documented by: Famotidine (Famotidine 20 Mg Tab) 20 mg PO BID [facility] Last Admin: 06/23/21 08:39 Dose: 20 mg Documented by: Fenofibrate (Fenofibrate 160 Mg Tab) 160 mg PO HS@2100 [facility] Last Admin: 06/22/21 21:08 Dose: 160 mg Documented by: Haloperidol (Haloperidol 5 Mg Tab) 5 mg PO BID PRN PRN Reason: Psychosis Haloperidol Lactate (Haloperidol Lactate 5 Mg/Ml 1 Ml Vial) 5 mg IM Q12H PRN PRN Reason: Psychosis Dextrose/Sodium Chloride (Dextrose 5%-1/2ns Iv Soln) 1,000 mls @ 200 mls/hr IV .Q5H [facility] Last Admin: 06/23/21 17:56 Dose: 200 mls/hr Documented by: Potassium Chloride 10 meq/ IV (Solution) 100 mls @ 100 mls/hr IVPB Q1H [facility]; Protocol Stop: 06/23/21 21:29 Last Admin: 06/23/21 17:56 Dose: 100 mls/hr Documented by: Isosorbide Mononitrate (Isosorbide Mononitrate Er 30 Mg Tab.Er.24h) 30 mg PO DAILY@0900 [facility] Last Admin: 06/23/21 08:39 Dose: 30 mg Documented by: Lactulose (Lactulose 20 Gm/30 Ml Cup) 20 gm PO DAILY PRN PRN Reason: Constipation Lamotrigine (Lamotrigine 25 Mg Tab) 25 mg PO BID@0900,2100 [facility] Last Admin: 06/23/21 08:39 Dose: 25 mg Documented by: Levothyroxine Sodium (Levothyroxine 88 Mcg Tab) 88 mcg PO DAILY@0630 [facility] Last Admin: 06/23/21 10:41 Dose: Not Given Documented by: Melatonin (Melatonin 3 Mg Tablet) 3 mg PO HS PRN PRN Reason: Insomnia Miscellaneous Information (Potassium Replacement Protocol 1 Each Misc) 1 each MISCELLANE DAILY PRN; Protocol PRN Reason: Per Protocol Miscellaneous Information (Potassium Replacement Protocol 1 Each Misc) 1 each MISCELLANE DAILY PRN; Protocol PRN Reason: Per Protocol Miscellaneous Information (Potassium Replacement Protocol 1 Each Misc) 1 each MISCELLANE DAILY PRN; Protocol PRN Reason: Per Protocol Miscellaneous Information (Potassium Replacement Protocol 1 Each Misc) 1 each MISCELLANE DAILY PRN; Protocol PRN Reason: Per Protocol Miscellaneous Information (Potassium Replacement Protocol 1 Each Misc) 1 each MISCELLANE DAILY PRN; Protocol PRN Reason: Per Protocol Naloxone HCl (Naloxone 0.4 Mg/Ml 1 Ml Vial) 0.2 mg IV Q2M PRN PRN Reason: Opioid Reversal Ondansetron HCl (Ondansetron 4 Mg/2 Ml Vial) 4 mg IVP Q8HR PRN PRN Reason: Nausea And Vomiting Past medical history to include: Hypertension, hypothyroid, bipolar disorder, schizophrenia. excessive alcohol use in the past. No smoking. Psychosis, catatonic-like syndrome Social history: Heavy alcohol use in the past. . No smoking. Currently at [facility] Family history: Patient cannot tell Physical examination: VITAL SIGNS: 98, 79, 16, 160/75, 95% room air GENERAL: awake, reclining in bed, will talk occasionally. EYES: Pupils equal. Conjunctiva normal. HEENT: External appearance of nose and ears normal, oral cavity dry. NECK: JVD unable to assess; masses not palpable. HEART: First and second heart sounds are normal; no edema. LUNGS: Respiratory rate normal; clear to auscultation. ABDOMEN: Soft, nontender, liver spleen not palpable, no masses palpable. PSYCH: Patient does speak. Does not make sense sometimes. MUSCULOSKELETAL:No Clubbing/cyanosis;muscles-grossly intact NEUROLOGICAL: [Cranial nerves grossly intact; no facial asymmetry, moving limbs. Mumbling words INVESTIGATIONS, reviewed in the clinical context: June 23: White count 4 hemoglobin 10.9 sodium 152 chloride 124 June 22: Sodium 154 potassium 3.1 BUN 6 creatinine 1.16 June 21: White count 4.3 hemoglobin 11.9 sodium 154 potassium 3.2 creatinine 1.19 serum osmolality 322 June 20: Sodium 155 potassium 3.3 creatinine 1.19 June 19: Sodium 150 potassium 2.9 chloride 123 creatinine 1.27 June 15: Sodium 167 chloride 141 bicarb 19 BUN 35 creatinine 1.55 White count 10.8 hemoglobin 15.6 platelets 278 sodium 173 potassium 3.8 chloride 134 BUN 57 creatinine 2.38 potassium 10.3 UA showing trace protein EKG tracing personally reviewed by me-normal sinus rhythm. Unclear baseline Previous labs reviewed: March 2021: BUN 12 creatinine 0.9 Assessment and plan: -Severe hypernatremia, from free water deficit: Slow improvement Continue IV fluids to 200 mL an hour. Spoke to the nurse to make sure that the fluids are running properly. -Acute metabolic encephalopathy from renal failure and delirium: Better Follow clinically -Schizoaffective disorder, bipolar type. Psychosis: Clozaril 150 mg by mouth daily at bedtime Lamictal 25 mg twice a day Ativan 1 mg by mouth every 8 when necessary Haldol 5 mg by mouth twice a day when necessary -Bipolar disorder See above medications -Acute kidney injury, possibly prerenal: Better Continue IV fluids -Diabetes mellitus type 2, on oral hypoglycemic Hold metformin Follow Accu-Cheks -Hypothyroid Synthroid to IV -Hyperlipidemia Lipitor 40 mg daily at bedtime TriCor 134 mg before supper -Chronic DVT both lower extremity diagnosed on October 19 2020 [place]. Currently on Lovenox 100 mg subcu every 12 Patient will drink ensure. Eating small amounts. Sodium still coming down. Watch the patient over the weekend. Encourage oral intake. Discussed with the nurse.
[2021-06-23 20:25] LABS: Glucose,Whole Blood 147 mg/dL (75-99)
[2021-06-23] MEDS: ATORVASTATIN 40 MG TAB PO SCH (20:43)
[2021-06-23] MEDS: FENOFIBRATE 160 MG TAB PO SCH (20:44)
[2021-06-23] MEDS: cloZAPine 100 MG TAB PO SCH (20:44)
[2021-06-24] MEDS: DEXTROSE 5%-0.45% NACL 1,000 ML IV SCH ×5 (02:32→19:14)
[2021-06-24] MEDS: LEVOTHYROXINE 88 MCG TAB PO SCH (05:47)
[2021-06-24 07:05] LABS: Glucose,Whole Blood 168 mg/dL (75-99)
[2021-06-24 07:52] LABS: African American GFR (CKD) 72 (>60 ml/min/1.73 sqM); Anion Gap 3 mmol/L; Blood Urea Nitrogen 3 mg/dL (7-17); Calcium 8.6 mg/dL (8.4-10.2); Carbon Dioxide 23 mmol/L (22-30); Chloride 125 mmol/L (98-107); Glucose 189 mg/dL (74-99); Non-African American GFR(CKD) 62 (>60 ml/min/1.73 sqM); Potassium 3.1 mmol/L (3.5-5.1); Sodium 151 mmol/L (137-145)
[2021-06-24] MEDS: ENOXAPARIN 100 MG/ML SYRINGE SQ SCH ×2 (08:33→21:36)
[2021-06-24] MEDS: FAMOTIDINE 20 MG TAB PO SCH ×2 (08:35→21:36)
[2021-06-24] MEDS: CYANOCOBALAMIN 500 MCG TAB PO SCH (08:35)
[2021-06-24] MEDS: lamoTRIgine 25 MG TAB PO SCH ×2 (08:35→21:36)
[2021-06-24] MEDS: ISOSORBIDE MONONITRATE ER 30 MG TAB.ER.24H PO SCH (08:35)
[2021-06-24 11:39] LABS: Glucose,Whole Blood 144 mg/dL (75-99)
[2021-06-24] MEDS: BACITRACIN OINT 1 EACH PACKET TOPICAL SCH ×3 (13:23→21:36)
--- NOTE | 2021-06-24 17:03 | P.PN ---
Progress Note - Text Progress Note Date: 06/24/21 Chief Complaint: Abnormal labs History of presenting complaint: This is a 50-year-old patient, who follows with Dr. Saenz . known history of bipolar disorder and schizophrenia. 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 At catatonic state. Had responded well to Ativan treatment. Patient brought in from [facility]. Decreased responsiveness. Labs showed elevated sodium. Sodium is 173 with a chloride of 134. Also creatinine is up to 2.38. Patient rather delirious. Lethargic. Not able to give much of a history. Rest of the history as obtained per the ER physician. See the documentation. Patient started on IV fluids. Admitted with severe hypernatremia, acute kidney injury, acute metabolic encephalopathy/delirium. Started on D5 0.45. June 19: Getting D5 0.45. I changed IV fluids to LR. Sodium 150. Patient more awake. Mumbling. I did give the patient bite off on her burger. She daily twice and then the food ruled out from her mouth. Spoke to Dr. Khan from psychiatry. Increased patient's Clozaril to 150 mg at night. Patient is taking her medications intermittently. After talking to the nurse. Barely has been eating. Placed an order for all meals to be assisted. Also change the diet to chopped June 20: Laying in bed. Awake. Psychotic. Talking to people in the room. Poor oral intake. Taking her pills. We will change IV fluids to D5 0.45. Sodium 155 today. Spoke to the nurse to make sure the fluid is running. When I came to the room the IV line was kinked. June 21: Laying in bed. Awake. Talking with not making much sense. Spoke to theaide . Not eating. Spoke to nurse daily. Seemed to IV access became subcutaneous. Midline ordered. IV fluids increased. Sodium still on the higher side. Patient is taking her medications. June 22: Patient not eating. Refusing food. I did try to feed the patient. To 3 teaspoons. She is drinking her shakes. Taking her medications. Getting IV fluids. Sodium 154 June 23: Patient eating small amounts intermittently. Getting IV fluids. Sodium 152 not ready for discharge. Only occasionally will answer some questions, often will not make sense. Otherwise doesn't talk. February 5: May speak occasionally. Does drink shakes. Often refusing food. Getting IV fluids. Some breakdown skin on left arm. Add IV Ancef Review of systems cannot be obtained patient is barely answering questions Active Medications Acetaminophen (Acetaminophen Tab 325 Mg Tab) 650 mg PO Q6H PRN PRN Reason: Fever and/ or Pain Last Admin: 06/19/21 20:57 Dose: 650 mg Documented by: Atorvastatin Calcium (Atorvastatin 40 Mg Tab) 40 mg PO HS@2100 [facility] Last Admin: 06/23/21 20:43 Dose: 40 mg Documented by: Bacitracin (Bacitracin Oint 1 Each Packet) 1 each TOPICAL TID [facility]; Protocol Last Admin: 06/24/21 15:32 Dose: 1 each Documented by: Calcium Carbonate/Glycine (Calcium Carbonate 500 Mg Chewable) 1,000 mg PO Q4HR PRN PRN Reason: Dyspepsia Clozapine (Clozapine 100 Mg Tab) 150 mg PO [facility] Stop: 06/28/21 23:00 Last Admin: 06/23/21 20:44 Dose: 150 mg Documented by: Cyanocobalamin (Cyanocobalamin 500 Mcg Tab) 1,000 mcg PO DAILY@0900 [facility] Last Admin: 06/24/21 08:35 Dose: 1,000 mcg Documented by: Enoxaparin Sodium (Enoxaparin 100 Mg/Ml Syringe) 100 mg SQ Q12H [facility] Last Admin: 06/24/21 08:33 Dose: 100 mg Documented by: Famotidine (Famotidine 20 Mg Tab) 20 mg PO BID [facility] Last Admin: 06/24/21 08:35 Dose: 20 mg Documented by: Fenofibrate (Fenofibrate 160 Mg Tab) 160 mg PO HS@2100 [facility] Last Admin: 06/23/21 20:44 Dose: 160 mg Documented by: Haloperidol (Haloperidol 5 Mg Tab) 5 mg PO BID PRN PRN Reason: Psychosis Haloperidol Lactate (Haloperidol Lactate 5 Mg/Ml 1 Ml Vial) 5 mg IM Q12H PRN PRN Reason: Psychosis Dextrose/Sodium Chloride (Dextrose 5%-1/2ns Iv Soln) 1,000 mls @ 200 mls/hr IV .Q5H [facility] Last Admin: 06/24/21 13:25 Dose: 200 mls/hr Documented by: Cefazolin Sodium 1,000 mg/ (Sodium Chloride) 50 mls @ 100 mls/hr IVPB Q8HR [facility] Last Admin: 06/24/21 15:32 Dose: 100 mls/hr Documented by: Isosorbide Mononitrate (Isosorbide Mononitrate Er 30 Mg Tab.Er.24h) 30 mg PO DAILY@0900 [facility] Last Admin: 06/24/21 08:35 Dose: 30 mg Documented by: Lactulose (Lactulose 20 Gm/30 Ml Cup) 20 gm PO DAILY PRN PRN Reason: Constipation Lamotrigine (Lamotrigine 25 Mg Tab) 25 mg PO BID@0900,2100 [facility] Last Admin: 06/24/21 08:35 Dose: 25 mg Documented by: Levothyroxine Sodium (Levothyroxine 88 Mcg Tab) 88 mcg PO DAILY@0630 [facility] Last Admin: 06/24/21 05:47 Dose: 88 mcg Documented by: Melatonin (Melatonin 3 Mg Tablet) 3 mg PO HS PRN PRN Reason: Insomnia Miscellaneous Information (Potassium Replacement Protocol 1 Each Misc) 1 each MISCELLANE DAILY PRN; Protocol PRN Reason: Per Protocol Naloxone HCl (Naloxone 0.4 Mg/Ml 1 Ml Vial) 0.2 mg IV Q2M PRN PRN Reason: Opioid Reversal Ondansetron HCl (Ondansetron 4 Mg/2 Ml Vial) 4 mg IVP Q8HR PRN PRN Reason: Nausea And Vomiting Past medical history to include: Hypertension, hypothyroid, bipolar disorder, schizophrenia. excessive alcohol use in the past. No smoking. Psychosis, catatonic-like syndrome Social history: Heavy alcohol use in the past. . No smoking. Currently at [facility] Family history: Patient cannot tell Physical examination: VITAL SIGNS: 98.2, 78, 18, 105/70, 95% room air GENERAL: awake, reclining in bed, will speak occasionally. EYES: Pupils equal. Conjunctiva normal. HEENT: External appearance of nose and ears normal, oral cavity dry. NECK: JVD unable to assess; masses not palpable. HEART: First and second heart sounds are normal; no edema. LUNGS: Respiratory rate normal; clear to auscultation. ABDOMEN: Soft, nontender, liver spleen not palpable, no masses palpable. PSYCH: Patient does speak. Does not make sense sometimes. DERMATOLOGICAL: Some area of skin broke down from bullae left arm MUSCULOSKELETAL:No Clubbing/cyanosis;muscles-grossly intact NEUROLOGICAL: [Cranial nerves grossly intact; no facial asymmetry, moving limbs. Mumbling words INVESTIGATIONS, reviewed in the clinical context: June 24: Sodium 151 potassium 3.1 creatinine 1.04 June 23: White count 4 hemoglobin 10.9 sodium 152 chloride 124 June 22: Sodium 154 potassium 3.1 BUN 6 creatinine 1.16 June 21: White count 4.3 hemoglobin 11.9 sodium 154 potassium 3.2 creatinine 1.19 serum osmolality 322 June 20: Sodium 155 potassium 3.3 creatinine 1.19 June 19: Sodium 150 potassium 2.9 chloride 123 creatinine 1.27 June 15: Sodium 167 chloride 141 bicarb 19 BUN 35 creatinine 1.55 White count 10.8 hemoglobin 15.6 platelets 278 sodium 173 potassium 3.8 chloride 134 BUN 57 creatinine 2.38 potassium 10.3 UA showing trace protein EKG tracing personally reviewed by me-normal sinus rhythm. Unclear baseline Previous labs reviewed: March 2021: BUN 12 creatinine 0.9 Assessment and plan: -Severe hypernatremia, from free water deficit: Improving Continue IV fluids to 200 mL an hour. -Acute metabolic encephalopathy from renal failure and delirium: Better Follow clinically -Schizoaffective disorder, bipolar type. Psychosis: Clozaril 150 mg by mouth daily at bedtime Lamictal 25 mg twice a day Ativan 1 mg by mouth every 8 when necessary Haldol 5 mg by mouth twice a day when necessary -Left arm cellulitis IV Ancef -Bipolar disorder See above medications -Acute kidney injury, possibly prerenal: Better Continue IV fluids -Diabetes mellitus type 2, on oral hypoglycemic Hold metformin Follow Accu-Cheks -Hypothyroid Synthroid to IV -Hyperlipidemia Lipitor 40 mg daily at bedtime TriCor 134 mg before supper -Chronic DVT both lower extremity diagnosed on October 19 2020 [place]. Currently on Lovenox 100 mg subcu every 12 Start IV Ancef. Dressing. Encourage oral intake. Repeat labs. We will try Marinol
[2021-06-24 17:11] LABS: Glucose,Whole Blood 147 mg/dL (75-99)
[2021-06-24 20:47] LABS: Glucose,Whole Blood 133 mg/dL (75-99)
[2021-06-24] MEDS: ATORVASTATIN 40 MG TAB PO SCH (21:35)
[2021-06-24] MEDS: FENOFIBRATE 160 MG TAB PO SCH (21:36)
[2021-06-24] MEDS: cloZAPine 100 MG TAB PO SCH (21:36)
[2021-06-25] MEDS: DEXTROSE 5%-0.45% NACL 1,000 ML IV SCH ×4 (01:31→22:59)
[2021-06-25] MEDS: LEVOTHYROXINE 88 MCG TAB PO SCH (06:49)
[2021-06-25 07:19] LABS: African American GFR (CKD) 72 (>60 ml/min/1.73 sqM); Anion Gap 6 mmol/L; Blood Urea Nitrogen 3 mg/dL (7-17); Carbon Dioxide 23 mmol/L (22-30); Chloride 123 mmol/L (98-107); Glucose 180 mg/dL (74-99); Non-African American GFR(CKD) 62 (>60 ml/min/1.73 sqM); Sodium 152 mmol/L (137-145)
[2021-06-25 07:24] LABS: Glucose,Whole Blood 191 mg/dL (75-99)
[2021-06-25] MEDS: BACITRACIN OINT 1 EACH PACKET TOPICAL SCH ×3 (07:34→21:12)
[2021-06-25] MEDS: CYANOCOBALAMIN 500 MCG TAB PO SCH (07:34)
[2021-06-25] MEDS: lamoTRIgine 25 MG TAB PO SCH ×2 (07:34→21:12)
[2021-06-25] MEDS: ISOSORBIDE MONONITRATE ER 30 MG TAB.ER.24H PO SCH (07:34)
[2021-06-25] MEDS: ENOXAPARIN 100 MG/ML SYRINGE SQ SCH ×2 (07:35→21:12)
[2021-06-25] MEDS: FAMOTIDINE 20 MG TAB PO SCH ×2 (07:35→21:12)
[2021-06-25] MEDS ORDERED: Potassium Replacement Protocol 1 EACH MISC MISCELLANE PRN (07:51)
[2021-06-25] MEDS: POTASSIUM CHLORIDE 10 MEQ in WATER FOR INJECTION 1 100ML.BAG IVPB SCH ×4 (09:13→12:23)
[2021-06-25 12:33] LABS: Glucose,Whole Blood 129 mg/dL (75-99)
[2021-06-25] MEDS ORDERED: POTASSIUM CHLORIDE ER 20 MEQ TAB.ER PO STA (14:06)
[2021-06-25 17:15] LABS: Glucose,Whole Blood 131 mg/dL (75-99)
--- NOTE | 2021-06-25 19:54 | P.PN ---
Progress Note - Text Progress Note Date: 06/25/21 Chief Complaint: Abnormal labs History of presenting complaint: This is a 50-year-old patient, who follows with Dr. Saenz . known history of bipolar disorder and schizophrenia. 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 At catatonic state. Had responded well to Ativan treatment. Patient brought in from [facility]. Decreased responsiveness. Labs showed elevated sodium. Sodium is 173 with a chloride of 134. Also creatinine is up to 2.38. Patient rather delirious. Lethargic. Not able to give much of a history. Rest of the history as obtained per the ER physician. See the documentation. Patient started on IV fluids. Admitted with severe hypernatremia, acute kidney injury, acute metabolic encephalopathy/delirium. Started on D5 0.45. June 19: Getting D5 0.45. I changed IV fluids to LR. Sodium 150. Patient more awake. Mumbling. I did give the patient bite off on her burger. She daily twice and then the food ruled out from her mouth. Spoke to Dr. Khan from psychiatry. Increased patient's Clozaril to 150 mg at night. Patient is taking her medications intermittently. After talking to the nurse. Barely has been eating. Placed an order for all meals to be assisted. Also change the diet to chopped June 20: Laying in bed. Awake. Psychotic. Talking to people in the room. Poor oral intake. Taking her pills. We will change IV fluids to D5 0.45. Sodium 155 today. Spoke to the nurse to make sure the fluid is running. When I came to the room the IV line was kinked. June 21: Laying in bed. Awake. Talking with not making much sense. Spoke to theaide . Not eating. Spoke to nurse daily. Seemed to IV access became subcutaneous. Midline ordered. IV fluids increased. Sodium still on the higher side. Patient is taking her medications. June 22: Patient not eating. Refusing food. I did try to feed the patient. To 3 teaspoons. She is drinking her shakes. Taking her medications. Getting IV fluids. Sodium 154 June 23: Patient eating small amounts intermittently. Getting IV fluids. Sodium 152 not ready for discharge. Only occasionally will answer some questions, often will not make sense. Otherwise doesn't talk. June 24: May speak occasionally. Does drink shakes. Often refusing food. Getting IV fluids. Some breakdown skin on left arm. Add IV Ancef. June 25: Talking sometimes.. Doesn't make sense at times. Refusing to eat. Getting IV fluids. Patient's sodium is still 152. Given the low potassium and her physical appearance I would check for cortisol excess. We will order low- dose that is 1 mg dexamethasone suppression test. Check a cortisol level at 8 AM. Active Medications Acetaminophen (Acetaminophen Tab 325 Mg Tab) 650 mg PO Q6H PRN PRN Reason: Fever and/ or Pain Last Admin: 06/19/21 20:57 Dose: 650 mg Documented by: Atorvastatin Calcium (Atorvastatin 40 Mg Tab) 40 mg PO HS@2100 [facility] Last Admin: 06/24/21 21:35 Dose: 40 mg Documented by: Bacitracin (Bacitracin Oint 1 Each Packet) 1 each TOPICAL TID [facility]; Protocol Last Admin: 06/25/21 15:56 Dose: 1 each Documented by: Calcium Carbonate/Glycine (Calcium Carbonate 500 Mg Chewable) 1,000 mg PO Q4HR PRN PRN Reason: Dyspepsia Clozapine (Clozapine 100 Mg Tab) 150 mg PO [facility] Stop: 06/28/21 23:00 Last Admin: 06/24/21 21:36 Dose: 150 mg Documented by: Cyanocobalamin (Cyanocobalamin 500 Mcg Tab) 1,000 mcg PO DAILY@0900 [facility] Last Admin: 06/25/21 07:34 Dose: 1,000 mcg Documented by: Dronabinol (Dronabinol 2.5 Mg Cap) 5 mg PO AC-BID [facility] Last Admin: 06/25/21 17:18 Dose: 5 mg Documented by: Enoxaparin Sodium (Enoxaparin 100 Mg/Ml Syringe) 100 mg SQ Q12H [facility] Last Admin: 06/25/21 07:35 Dose: 100 mg Documented by: Famotidine (Famotidine 20 Mg Tab) 20 mg PO BID [facility] Last Admin: 06/25/21 07:35 Dose: 20 mg Documented by: Fenofibrate (Fenofibrate 160 Mg Tab) 160 mg PO HS@2100 [facility] Last Admin: 06/24/21 21:36 Dose: 160 mg Documented by: Haloperidol (Haloperidol 5 Mg Tab) 5 mg PO BID PRN PRN Reason: Psychosis Haloperidol Lactate (Haloperidol Lactate 5 Mg/Ml 1 Ml Vial) 5 mg IM Q12H PRN PRN Reason: Psychosis Dextrose/Sodium Chloride (Dextrose 5%-1/2ns Iv Soln) 1,000 mls @ 150 mls/hr IV .Q6H40M [facility] Last Admin: 06/25/21 17:18 Dose: 150 mls/hr Documented by: Cefazolin Sodium 1,000 mg/ (Sodium Chloride) 50 mls @ 100 mls/hr IVPB Q8HR [facility] Last Admin: 06/25/21 15:55 Dose: 100 mls/hr Documented by: Isosorbide Mononitrate (Isosorbide Mononitrate Er 30 Mg Tab.Er.24h) 30 mg PO DAILY@0900 [facility] Last Admin: 06/25/21 07:34 Dose: 30 mg Documented by: Lactulose (Lactulose 20 Gm/30 Ml Cup) 20 gm PO DAILY PRN PRN Reason: Constipation Lamotrigine (Lamotrigine 25 Mg Tab) 25 mg PO BID@0900,2100 [facility] Last Admin: 06/25/21 07:34 Dose: 25 mg Documented by: Levothyroxine Sodium (Levothyroxine 88 Mcg Tab) 88 mcg PO DAILY@0630 [facility] Last Admin: 06/25/21 06:49 Dose: Not Given Documented by: Melatonin (Melatonin 3 Mg Tablet) 3 mg PO HS PRN PRN Reason: Insomnia Miscellaneous Information (Potassium Replacement Protocol 1 Each Misc) 1 each MISCELLANE DAILY PRN; Protocol PRN Reason: Per Protocol Miscellaneous Information (Potassium Replacement Protocol 1 Each Misc) 1 each MISCELLANE DAILY PRN; Protocol PRN Reason: Per Protocol Naloxone HCl (Naloxone 0.4 Mg/Ml 1 Ml Vial) 0.2 mg IV Q2M PRN PRN Reason: Opioid Reversal Ondansetron HCl (Ondansetron 4 Mg/2 Ml Vial) 4 mg IVP Q8HR PRN PRN Reason: Nausea And Vomiting Past medical history to include: Hypertension, hypothyroid, bipolar disorder, schizophrenia. excessive alcohol use in the past. No smoking. Psychosis, catatonic-like syndrome Social history: Heavy alcohol use in the past. . No smoking. Currently at [facility] Family history: Patient cannot tell Physical examination: VITAL SIGNS: 97.8, 67, 18, 1:30/70, 97% room air GENERAL: awake, reclining in bed, will speak occasionally. EYES: Pupils equal. Conjunctiva normal. HEENT: External appearance of nose and ears normal, oral cavity dry. NECK: JVD unable to assess; masses not palpable. HEART: First and second heart sounds are normal; no edema. LUNGS: Respiratory rate normal; clear to auscultation. ABDOMEN: Soft, nontender, liver spleen not palpable, no masses palpable. PSYCH: Patient does speak. Does not make sense sometimes. DERMATOLOGICAL: area of skin broke down from bullae left arm MUSCULOSKELETAL:No Clubbing/cyanosis;muscles-grossly intact NEUROLOGICAL: [Cranial nerves grossly intact; no facial asymmetry, moving limbs. INVESTIGATIONS, reviewed in the clinical context: June 25: Sodium 152 potassium 3 creatinine 1.04 June 24: Sodium 151 potassium 3.1 creatinine 1.04 June 23: White count 4 hemoglobin 10.9 sodium 152 chloride 124 June 22: Sodium 154 potassium 3.1 BUN 6 creatinine 1.16 June 21: White count 4.3 hemoglobin 11.9 sodium 154 potassium 3.2 creatinine 1.19 serum osmolality 322 June 20: Sodium 155 potassium 3.3 creatinine 1.19 June 19: Sodium 150 potassium 2.9 chloride 123 creatinine 1.27 June 15: Sodium 167 chloride 141 bicarb 19 BUN 35 creatinine 1.55 White count 10.8 hemoglobin 15.6 platelets 278 sodium 173 potassium 3.8 chloride 134 BUN 57 creatinine 2.38 potassium 10.3 UA showing trace protein EKG tracing personally reviewed by me-normal sinus rhythm. Unclear baseline Previous labs reviewed: March 2021: BUN 12 creatinine 0.9 Assessment and plan: -Severe hypernatremia, from free water deficit: Improving Continue IV fluids to 200 mL an hour. -Given persistent hypernatremia and hypokalemia , well rule out cortisol excess. We will do a low dose 1 mg dexamethasone suppression test. Check cortisol level at 8 AM tomorrow. -Acute metabolic encephalopathy from renal failure and delirium: Better Follow clinically -Schizoaffective disorder, bipolar type. Psychosis: Clozaril 150 mg by mouth daily at bedtime Lamictal 25 mg twice a day Ativan 1 mg by mouth every 8 when necessary Haldol 5 mg by mouth twice a day when necessary -Left arm cellulitis IV Ancef -Bipolar disorder See above medications -Acute kidney injury, possibly prerenal: Better Continue IV fluids -Diabetes mellitus type 2, on oral hypoglycemic Hold metformin Follow Accu-Cheks -Hypothyroid Synthroid to IV -Hyperlipidemia Lipitor 40 mg daily at bedtime TriCor 134 mg before supper -Chronic DVT both lower extremity diagnosed on October 19 2020 [place]. Currently on Lovenox 100 mg subcu every 12 Continue IV Ancef. Dexamethasone suppression test. 1 mg dexamethasone tonight at 11 PM. Cortisol level at 8 AM tomorrow. We will give a trial of Marinol for another 24 hours.
[2021-06-25] MEDS: FENOFIBRATE 160 MG TAB PO SCH (21:11)
[2021-06-25] MEDS: cloZAPine 100 MG TAB PO SCH (21:11)
[2021-06-25] MEDS: ATORVASTATIN 40 MG TAB PO SCH (21:11)
[2021-06-25 21:23] LABS: Glucose,Whole Blood 134 mg/dL (75-99)
[2021-06-25 23:09] LABS: African American GFR (CKD) 74 (>60 ml/min/1.73 sqM); Anion Gap 5 mmol/L; Blood Urea Nitrogen 4 mg/dL (7-17); Calcium 9.7 mg/dL (8.4-10.2); Carbon Dioxide 28 mmol/L (22-30); Chloride 123 mmol/L (98-107); Glucose 177 mg/dL (74-99); Non-African American GFR(CKD) 64 (>60 ml/min/1.73 sqM); Potassium 3.1 mmol/L (3.5-5.1); Sodium 156 mmol/L (137-145)
[2021-06-26] MEDS: POTASSIUM CHLORIDE 10 MEQ in WATER FOR INJECTION 1 100ML.BAG IVPB SCH ×4 (01:38→04:44)
[2021-06-26] MEDS: DEXTROSE 5%-0.45% NACL 1,000 ML IV SCH ×3 (05:53→23:04)
[2021-06-26] MEDS: LEVOTHYROXINE 88 MCG TAB PO SCH (05:54)
[2021-06-26 07:20] LABS: Glucose,Whole Blood 165 mg/dL (75-99)
[2021-06-26] MEDS: ISOSORBIDE MONONITRATE ER 30 MG TAB.ER.24H PO SCH (07:49)
[2021-06-26] MEDS: lamoTRIgine 25 MG TAB PO SCH ×2 (07:49→20:57)
[2021-06-26] MEDS: CYANOCOBALAMIN 500 MCG TAB PO SCH (07:49)
[2021-06-26] MEDS: FAMOTIDINE 20 MG TAB PO SCH ×2 (07:49→20:58)
[2021-06-26] MEDS: BACITRACIN OINT 1 EACH PACKET TOPICAL SCH ×3 (07:51→22:57)
[2021-06-26 08:35] LABS: African American GFR (CKD) 79 (>60 ml/min/1.73 sqM); Anion Gap 4 mmol/L; Blood Urea Nitrogen 4 mg/dL (7-17); Calcium 9.5 mg/dL (8.4-10.2); Carbon Dioxide 28 mmol/L (22-30); Chloride 122 mmol/L (98-107); Glucose 185 mg/dL (74-99); Non-African American GFR(CKD) 68 (>60 ml/min/1.73 sqM); Potassium 3.5 mmol/L (3.5-5.1); Sodium 154 mmol/L (137-145)
[2021-06-26] MEDS: ENOXAPARIN 100 MG/ML SYRINGE SQ SCH (11:35)
[2021-06-26 11:43] LABS: Glucose,Whole Blood 147 mg/dL (75-99)
--- NOTE | 2021-06-26 17:13 | P.PN ---
Progress Note - Text Progress Note Date: 06/26/21 Chief Complaint: Abnormal labs History of presenting complaint: This is a 50-year-old patient, who follows with Dr. Saenz . known history of bipolar disorder and schizophrenia. 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 At catatonic state. Had responded well to Ativan treatment. Patient brought in from [facility]. Decreased responsiveness. Labs showed elevated sodium. Sodium is 173 with a chloride of 134. Also creatinine is up to 2.38. Patient rather delirious. Lethargic. Not able to give much of a history. Rest of the history as obtained per the ER physician. See the documentation. Patient started on IV fluids. Admitted with severe hypernatremia, acute kidney injury, acute metabolic encephalopathy/delirium. Started on D5 0.45. June 19: Getting D5 0.45. I changed IV fluids to LR. Sodium 150. Patient more awake. Mumbling. I did give the patient bite off on her burger. She daily twice and then the food ruled out from her mouth. Spoke to Dr. Khan from psychiatry. Increased patient's Clozaril to 150 mg at night. Patient is taking her medications intermittently. After talking to the nurse. Barely has been eating. Placed an order for all meals to be assisted. Also change the diet to chopped June 20: Laying in bed. Awake. Psychotic. Talking to people in the room. Poor oral intake. Taking her pills. We will change IV fluids to D5 0.45. Sodium 155 today. Spoke to the nurse to make sure the fluid is running. When I came to the room the IV line was kinked. June 21: Laying in bed. Awake. Talking with not making much sense. Spoke to theaide . Not eating. Spoke to nurse daily. Seemed to IV access became subcutaneous. Midline ordered. IV fluids increased. Sodium still on the higher side. Patient is taking her medications. June 22: Patient not eating. Refusing food. I did try to feed the patient. To 3 teaspoons. She is drinking her shakes. Taking her medications. Getting IV fluids. Sodium 154 June 23: Patient eating small amounts intermittently. Getting IV fluids. Sodium 152 not ready for discharge. Only occasionally will answer some questions, often will not make sense. Otherwise doesn't talk. June 24: May speak occasionally. Does drink shakes. Often refusing food. Getting IV fluids. Some breakdown skin on left arm. Add IV Ancef. June 25: Talking sometimes.. Doesn't make sense at times. Refusing to eat. Getting IV fluids. Patient's sodium is still 152. Given the low potassium and her physical appearance I would check for cortisol excess. We will order low- dose that is 1 mg dexamethasone suppression test. Check a cortisol level at 8 AM. June 26: Patient had a low-dose dexamethasone suppression test done last night/this morning. Cortisol level came back at 11 mcg/dL. This is suggestive of [place]'s disease. Normal being less than 1.8 for this test. I proceeded to order a high dose dexamethasone suppression test with 8 mg of dexamethasone tonight. In checking a cortisol level tomorrow morning. Also ACTH and MRI of pituitary gland with gadolinium enhancement has been ordered. Patient's only eating poor amounts. Also discussed with Dr. Lima from psychiatry. Re chelsea on IV fluids. Sodium still up. Active Medications Acetaminophen (Acetaminophen Tab 325 Mg Tab) 650 mg PO Q6H PRN PRN Reason: Fever and/ or Pain Last Admin: 06/19/21 20:57 Dose: 650 mg Documented by: Atorvastatin Calcium (Atorvastatin 40 Mg Tab) 40 mg PO HS@2100 [facility] Last Admin: 06/25/21 21:11 Dose: 40 mg Documented by: Bacitracin (Bacitracin Oint 1 Each Packet) 1 each TOPICAL TID [facility]; Protocol Last Admin: 06/26/21 16:31 Dose: 1 each Documented by: Calcium Carbonate/Glycine (Calcium Carbonate 500 Mg Chewable) 1,000 mg PO Q4HR PRN PRN Reason: Dyspepsia Clozapine (Clozapine 100 Mg Tab) 150 mg PO HS [facility] Stop: 06/28/21 23:00 Last Admin: 06/25/21 21:11 Dose: 150 mg Documented by: Cyanocobalamin (Cyanocobalamin 500 Mcg Tab) 1,000 mcg PO DAILY@0900 [facility] Last Admin: 06/26/21 07:49 Dose: 1,000 mcg Documented by: Dexamethasone (Dexamethasone 4 Mg Tab) 8 mg PO DAILY@2300 [facility] Stop: 06/26/21 23:01 Dronabinol (Dronabinol 2.5 Mg Cap) 5 mg PO AC-BID [facility] Last Admin: 06/26/21 16:31 Dose: 5 mg Documented by: Enoxaparin Sodium (Enoxaparin 100 Mg/Ml Syringe) 100 mg SQ Q12H [facility] Last Admin: 06/26/21 11:35 Dose: 100 mg Documented by: Famotidine (Famotidine 20 Mg Tab) 20 mg PO BID [facility] Last Admin: 06/26/21 07:49 Dose: 20 mg Documented by: Fenofibrate (Fenofibrate 160 Mg Tab) 160 mg PO HS@2100 [facility] Last Admin: 06/25/21 21:11 Dose: 160 mg Documented by: Haloperidol (Haloperidol 5 Mg Tab) 5 mg PO BID PRN PRN Reason: Psychosis Haloperidol Lactate (Haloperidol Lactate 5 Mg/Ml 1 Ml Vial) 5 mg IM Q12H PRN PRN Reason: Psychosis Dextrose/Sodium Chloride (Dextrose 5%-1/2ns Iv Soln) 1,000 mls @ 150 mls/hr IV .Q6H40M [facility] Last Admin: 06/26/21 16:30 Dose: 150 mls/hr Documented by: Cefazolin Sodium 1,000 mg/ (Sodium Chloride) 50 mls @ 100 mls/hr IVPB Q8HR [facility] Last Admin: 06/26/21 16:31 Dose: 100 mls/hr Documented by: Isosorbide Mononitrate (Isosorbide Mononitrate Er 30 Mg Tab.Er.24h) 30 mg PO DAILY@0900 [facility] Last Admin: 06/26/21 07:49 Dose: 30 mg Documented by: Lactulose (Lactulose 20 Gm/30 Ml Cup) 20 gm PO DAILY PRN PRN Reason: Constipation Lamotrigine (Lamotrigine 25 Mg Tab) 25 mg PO BID@0900,2100 [facility] Last Admin: 06/26/21 07:49 Dose: 25 mg Documented by: Levothyroxine Sodium (Levothyroxine 88 Mcg Tab) 88 mcg PO DAILY@0630 [facility] Last Admin: 06/26/21 05:54 Dose: 88 mcg Documented by: Melatonin (Melatonin 3 Mg Tablet) 3 mg PO HS PRN PRN Reason: Insomnia Miscellaneous Information (Potassium Replacement Protocol 1 Each Misc) 1 each MISCELLANE DAILY PRN; Protocol PRN Reason: Per Protocol Miscellaneous Information (Potassium Replacement Protocol 1 Each Misc) 1 each MISCELLANE DAILY PRN; Protocol PRN Reason: Per Protocol Naloxone HCl (Naloxone 0.4 Mg/Ml 1 Ml Vial) 0.2 mg IV Q2M PRN PRN Reason: Opioid Reversal Ondansetron HCl (Ondansetron 4 Mg/2 Ml Vial) 4 mg IVP Q8HR PRN PRN Reason: Nausea And Vomiting Past medical history to include: Hypertension, hypothyroid, bipolar disorder, schizophrenia. excessive alcohol use in the past. No smoking. Psychosis, catatonic-like syndrome Social history: Heavy alcohol use in the past. . No smoking. Currently at [facility] Family history: Patient cannot tell Physical examination: VITAL SIGNS: 98.3, 87, 19, 136/87, 94% room air GENERAL: awake, reclining in bed, will speak occasionally. Some cushingoid appearance EYES: Pupils equal. Conjunctiva normal. HEENT: External appearance of nose and ears normal, oral cavity dry. NECK: JVD unable to assess; masses not palpable. HEART: First and second heart sounds are normal; no edema. LUNGS: Respiratory rate normal; clear to auscultation. ABDOMEN: Soft, nontender, liver spleen not palpable, no masses palpable. PSYCH: Patient does speak. Continuous not to make sense often when she speaks DERMATOLOGICAL: area of skin broke down from bullae left arm MUSCULOSKELETAL:No Clubbing/cyanosis;muscles-grossly intact NEUROLOGICAL: [Cranial nerves grossly intact; no facial asymmetry, moving limbs. INVESTIGATIONS, reviewed in the clinical context: June 26: Sodium 154 potassium 3.5 Low-dose dexamethasone suppression test. A.m. cortisol June 25: Sodium 152 potassium 3 creatinine 1.04 June 24: Sodium 151 potassium 3.1 creatinine 1.04 June 23: White count 4 hemoglobin 10.9 sodium 152 chloride 124 June 3: Sodium 154 potassium 3.1 BUN 6 creatinine 1.16 June 21: White count 4.3 hemoglobin 11.9 sodium 154 potassium 3.2 creatinine 1.19 serum osmolality 322 June 20: Sodium 155 potassium 3.3 creatinine 1.19 June 19: Sodium 150 potassium 2.9 chloride 123 creatinine 1.27 June 15: Sodium 167 chloride 141 bicarb 19 BUN 35 creatinine 1.55 White count 10.8 hemoglobin 15.6 platelets 278 sodium 173 potassium 3.8 chloride 134 BUN 57 creatinine 2.38 potassium 10.3 UA showing trace protein EKG tracing personally reviewed by me-normal sinus rhythm. Unclear baseline Previous labs reviewed: March 2021: BUN 12 creatinine 0.9 Assessment and plan: -Severe hypernatremia, from free water deficit: Slow to respond Continue IV fluids to 200 mL an hour. -Given persistent hypernatremia and hypokalemia , assessing for Gali's disease Positive low dose 1 mg dexamethasone suppression test. With a morning cortisol level of 11. High dose dexamethasone suppression test ordered. ACTH level. MRI of the pituitary gland with gadolinium enhancement -Acute metabolic encephalopathy from renal failure and delirium: Better Follow clinically -Schizoaffective disorder, bipolar type. Psychosis: Clozaril 150 mg by mouth daily at bedtime Lamictal 25 mg twice a day Ativan 1 mg by mouth every 8 when necessary Haldol 5 mg by mouth twice a day when necessary -Left arm cellulitis IV Ancef -Bipolar disorder See above medications -Acute kidney injury, possibly prerenal: Better Continue IV fluids -Diabetes mellitus type 2, on oral hypoglycemic Hold metformin Follow Accu-Cheks -Hypothyroid Synthroid to IV -Hyperlipidemia Lipitor 40 mg daily at bedtime TriCor 134 mg before supper -Chronic DVT both lower extremity diagnosed on October 19 2020 Preethi. Currently on Lovenox 100 mg subcu every 12-discontinue. Resume preethi Patient has positive low-dose dexamethasone test. Ordered high-dose dexamethasone test. MRI of the pituitary gland. ACTH. DC Lovenox. Resume preethi. Spoke to Dr. Lima from psychiatry. To evaluate from his standpoint. Encourage oral intake. Patient not a candidate for PEG tube because of psychosis, afraid will pull it out
[2021-06-26 17:24] LABS: Glucose,Whole Blood 131 mg/dL (75-99)
[2021-06-26] MEDS: cloZAPine 100 MG TAB PO SCH (20:55)
[2021-06-26] MEDS: ATORVASTATIN 40 MG TAB PO SCH (20:57)
[2021-06-26] MEDS: FENOFIBRATE 160 MG TAB PO SCH (20:57)
[2021-06-26] MEDS: APIXABAN 5 MG TAB PO SCH (20:58)
[2021-06-26 21:26] LABS: Glucose,Whole Blood 169 mg/dL (75-99)
[2021-06-26] MEDS ORDERED: dexAMETHasone 4 MG TAB PO SCH (23:00)
[2021-06-27] MEDS: DEXTROSE 5%-0.45% NACL 1,000 ML IV SCH ×3 (06:31→17:54)
[2021-06-27] MEDS: LEVOTHYROXINE 88 MCG TAB PO SCH (06:31)
[2021-06-27 07:11] LABS: Glucose,Whole Blood 237 mg/dL (75-99)
[2021-06-27] MEDS: CYANOCOBALAMIN 500 MCG TAB PO SCH (09:40)
[2021-06-27] MEDS: lamoTRIgine 25 MG TAB PO SCH ×2 (09:41→22:32)
[2021-06-27] MEDS: FAMOTIDINE 20 MG TAB PO SCH ×2 (09:41→22:32)
[2021-06-27] MEDS: BACITRACIN OINT 1 EACH PACKET TOPICAL SCH ×3 (09:41→22:39)
[2021-06-27] MEDS: APIXABAN 5 MG TAB PO SCH ×2 (09:41→22:31)
[2021-06-27] MEDS: ISOSORBIDE MONONITRATE ER 30 MG TAB.ER.24H PO SCH (09:41)
[2021-06-27 10:20] LABS: T4, Free (Free Thyroxine) 0.35 ng/dL (0.78-2.19)
[2021-06-27 11:47] LABS: Glucose,Whole Blood 228 mg/dL (75-99)
--- NOTE | 2021-06-27 14:24 | P.PN ---
Progress Note - Text Progress Note Date: 06/27/21 Interval history: Patient was seen today for psychiatric follow up for schizophrenia and altered mental status. Currently the patient is not endorsing any significant psychotic symptoms at this time. She is denying any suicidal or homicidal ideation, intention, and/or plan. She is not reporting any auditory or visual hallucinations. She denies any paranoia or other delusions. She reports no issues with sleep. Appetite continues to be low. The patient is however not reporting any side effects of her medications. Mental status exam: General Appearance: Patient appears to be obese, stated age is alert, and directable at this time. Behavior: Patient is calm with fair eye contact. Lying in bed without any agitated behavior. Speech: Patient's speech is fluent and nonpressured. Speech is much more spontaneous with increased volume compared to before. Monotone. Mood/Affect: Mood is "alright", affect is congruent and constricted. Suicidality/Homicidality: Patient denies having any suicidal or homicidal ideation intent or plan. Perceptions: Patient denies any auditory or visual hallucinations. Though content/process: [place] but logical in short conversation. Memory and concentration: Patient is alert and oriented to person and place however not to time or events leading up to this hospitalization. Concentration is fair. Judgment and insight: Improving Vital Signs Temp 98.1 F 06/27/21 11:54 Pulse 101 H 06/27/21 11:54 Resp 18 06/27/21 11:54 BP 112/73 06/27/21 11:54 Pulse Ox 95 06/27/21 07:30 Intake & Output 06/26/21 06/27/21 06/27/21 18:59 06:59 18:59 Intake Total 540 300 Balance 540 300 Weight 99.79 kg Intake: Oral 540 300 Other: Voiding Method Diaper Diaper Diaper Incontinent Incontinent Incontinent # Voids 4 1 # Bowel Movements 0 Laboratory Results - Last 24 Hours 06/26/21 06/26/21 06/26/21 15:25 17:19 20:57 POC Glucose (mg/dL) 131 H 169 H POC Glu [employer] ID Ernestine Watkins Connie TSH Free T4 Cortisol ACTH 16.00 06/27/21 06/27/21 06/27/21 07:10 08:02 11:46 POC Glucose (mg/dL) 237 H 228 H POC Glu [employer] ID Lsahaun Connell Chloe TSH 25.500 H Free T4 0.35 L Cortisol 4 ACTH Assessment/Plan: Schizophrenia 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 Continue clozapine 150 mg daily at bedtime for psychosis. No change in psychotropic medications. Agree with Dronabinol for appetite stimulation. Psychiatry will follow loosely. At this time patient is cleared psychiatrically. Please contact us with any questions or concerns.
[2021-06-27 17:13] LABS: Glucose,Whole Blood 154 mg/dL (75-99)
[2021-06-27 20:10] LABS: Glucose,Whole Blood 151 mg/dL (75-99)
--- NOTE | 2021-06-27 21:23 | P.PN ---
Progress Note - Text Progress Note Date: 06/27/21 Chief Complaint: Abnormal labs History of presenting complaint: This is a 50-year-old patient, who follows with Dr. Saenz . known history of bipolar disorder and schizophrenia. 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 At catatonic state. Had responded well to Ativan treatment. Patient brought in from [facility]. Decreased responsiveness. Labs showed elevated sodium. Sodium is 173 with a chloride of 134. Also creatinine is up to 2.38. Patient rather delirious. Lethargic. Not able to give much of a history. Rest of the history as obtained per the ER physician. See the documentation. Patient started on IV fluids. Admitted with severe hypernatremia, acute kidney injury, acute metabolic encephalopathy/delirium. Started on D5 0.45. June 19: Getting D5 0.45. I changed IV fluids to LR. Sodium 150. Patient more awake. Mumbling. I did give the patient bite off on her burger. She daily twice and then the food ruled out from her mouth. Spoke to Dr. Khan from psychiatry. Increased patient's Clozaril to 150 mg at night. Patient is taking her medications intermittently. After talking to the nurse. Barely has been eating. Placed an order for all meals to be assisted. Also change the diet to chopped June 20: Laying in bed. Awake. Psychotic. Talking to people in the room. Poor oral intake. Taking her pills. We will change IV fluids to D5 0.45. Sodium 155 today. Spoke to the nurse to make sure the fluid is running. When I came to the room the IV line was kinked. June 21: Laying in bed. Awake. Talking with not making much sense. Spoke to theaide . Not eating. Spoke to nurse daily. Seemed to IV access became subcutaneous. Midline ordered. IV fluids increased. Sodium still on the higher side. Patient is taking her medications. June 22: Patient not eating. Refusing food. I did try to feed the patient. To 3 teaspoons. She is drinking her shakes. Taking her medications. Getting IV fluids. Sodium 154 June 23: Patient eating small amounts intermittently. Getting IV fluids. Sodium 152 not ready for discharge. Only occasionally will answer some questions, often will not make sense. Otherwise doesn't talk. June 24: May speak occasionally. Does drink shakes. Often refusing food. Getting IV fluids. Some breakdown skin on left arm. Add IV Ancef. June 25: Talking sometimes.. Doesn't make sense at times. Refusing to eat. Getting IV fluids. Patient's sodium is still 152. Given the low potassium and her physical appearance I would check for cortisol excess. We will order low- dose that is 1 mg dexamethasone suppression test. Check a cortisol level at 8 AM. June 26: Patient had a low-dose dexamethasone suppression test done last night/this morning. Cortisol level came back at 11 mcg/dL. This is suggestive of [place]'s disease. Normal being less than 1.8 for this test. I proceeded to order a high dose dexamethasone suppression test with 8 mg of dexamethasone tonight. In checking a cortisol level tomorrow morning. Also ACTH and MRI of pituitary gland with gadolinium enhancement has been ordered. Patient's only eating poor amounts. Also discussed with Dr. Lima from psychiatry. Farrah barajass on IV fluids. Sodium still up. June 27: Patient had a high dose dexamethasone test. Cortisol this morning 4. TSH high free T4 low. Increase Synthroid 112 g a day. Sodium still running high. We'll consult Dr. López from endocrinology. Eating about 25%. We will change IV fluids to D5W. Active Medications Acetaminophen (Acetaminophen Tab 325 Mg Tab) 650 mg PO Q6H PRN PRN Reason: Fever and/ or Pain Last Admin: 06/19/21 20:57 Dose: 650 mg Documented by: Apixaban (Apixaban 5 Mg Tab) 5 mg PO BID [facility]; Protocol Last Admin: 06/27/21 09:41 Dose: 5 mg Documented by: Atorvastatin Calcium (Atorvastatin 40 Mg Tab) 40 mg PO HS@2100 [facility] Last Admin: 06/26/21 20:57 Dose: 40 mg Documented by: Bacitracin (Bacitracin Oint 1 Each Packet) 1 each TOPICAL TID [facility]; Protocol Last Admin: 06/27/21 15:46 Dose: 1 each Documented by: Calcium Carbonate/Glycine (Calcium Carbonate 500 Mg Chewable) 1,000 mg PO Q4HR PRN PRN Reason: Dyspepsia Clozapine (Clozapine 100 Mg Tab) 150 mg PO HS [facility] Stop: 06/28/21 23:00 Last Admin: 06/26/21 20:55 Dose: 150 mg Documented by: Cyanocobalamin (Cyanocobalamin 500 Mcg Tab) 1,000 mcg PO DAILY@0900 [facility] Last Admin: 06/27/21 09:40 Dose: 1,000 mcg Documented by: Dronabinol (Dronabinol 2.5 Mg Cap) 5 mg PO AC-BID [facility] Last Admin: 06/27/21 17:52 Dose: 5 mg Documented by: Famotidine (Famotidine 20 Mg Tab) 20 mg PO BID [facility] Last Admin: 06/27/21 09:41 Dose: 20 mg Documented by: Fenofibrate (Fenofibrate 160 Mg Tab) 160 mg PO HS@2100 [facility] Last Admin: 06/26/21 20:57 Dose: 160 mg Documented by: Haloperidol (Haloperidol 5 Mg Tab) 5 mg PO BID PRN PRN Reason: Psychosis Haloperidol Lactate (Haloperidol Lactate 5 Mg/Ml 1 Ml Vial) 5 mg IM Q12H PRN PRN Reason: Psychosis Cefazolin Sodium 1,000 mg/ (Sodium Chloride) 50 mls @ 100 mls/hr IVPB Q8HR [facility] Last Admin: 06/27/21 15:48 Dose: 100 mls/hr Documented by: Isosorbide Mononitrate (Isosorbide Mononitrate Er 30 Mg Tab.Er.24h) 30 mg PO DAILY@0900 [facility] Last Admin: 06/27/21 09:41 Dose: 30 mg Documented by: Lactulose (Lactulose 20 Gm/30 Ml Cup) 20 gm PO DAILY PRN PRN Reason: Constipation Lamotrigine (Lamotrigine 25 Mg Tab) 25 mg PO BID@0900,2100 [facility] Last Admin: 06/27/21 09:41 Dose: 25 mg Documented by: Levothyroxine Sodium (Levothyroxine 88 Mcg Tab) 88 mcg PO DAILY@0630 [facility] Last Admin: 06/27/21 06:31 Dose: Not Given Documented by: Melatonin (Melatonin 3 Mg Tablet) 3 mg PO HS PRN PRN Reason: Insomnia Miscellaneous Information (Potassium Replacement Protocol 1 Each Misc) 1 each MISCELLANE DAILY PRN; Protocol PRN Reason: Per Protocol Miscellaneous Information (Potassium Replacement Protocol 1 Each Misc) 1 each MISCELLANE DAILY PRN; Protocol PRN Reason: Per Protocol Naloxone HCl (Naloxone 0.4 Mg/Ml 1 Ml Vial) 0.2 mg IV Q2M PRN PRN Reason: Opioid Reversal Ondansetron HCl (Ondansetron 4 Mg/2 Ml Vial) 4 mg IVP Q8HR PRN PRN Reason: Nausea And Vomiting Past medical history to include: Hypertension, hypothyroid, bipolar disorder, schizophrenia. excessive alcohol use in the past. No smoking. Psychosis, catatonic-like syndrome Social history: Heavy alcohol use in the past. . No smoking. Currently at [facility] Family history: Patient cannot tell Physical examination: VITAL SIGNS: 98.1, 71, 16, 99/58, 95% room air GENERAL: awake, , will speak occasionally. Some cushingoid appearance EYES: Pupils equal. Conjunctiva normal. HEENT: External appearance of nose and ears normal, oral cavity dry. NECK: JVD unable to assess; masses not palpable. HEART: First and second heart sounds are normal; no edema. LUNGS: Respiratory rate normal; clear to auscultation. ABDOMEN: Soft, nontender, liver spleen not palpable, no masses palpable. PSYCH: Occasionally speak. Continuous not to make sense often when she speaks DERMATOLOGICAL: area of skin broke down from bullae left arm MUSCULOSKELETAL:No Clubbing/cyanosis;muscles-grossly intact NEUROLOGICAL: [Cranial nerves grossly intact; no facial asymmetry, moving limbs. INVESTIGATIONS, reviewed in the clinical context: June 27: TSH 25.5 free T4 0.35 High-dose dexamethasone suppression test. A.m. cortisol 4 ACTH: 14 July 7: Sodium 154 potassium 3.5 Low-dose dexamethasone suppression test. A.m. cortisol 30 June 6: Sodium 152 potassium 3 creatinine 1.04 June 5: Sodium 151 potassium 3.1 creatinine 1.04 June 4: White count 4 hemoglobin 10.9 sodium 152 chloride 124 June 3: Sodium 154 potassium 3.1 BUN 6 creatinine 1.16 June 21: White count 4.3 hemoglobin 11.9 sodium 154 potassium 3.2 creatinine 1.19 serum osmolality 322 June 20: Sodium 155 potassium 3.3 creatinine 1.19 June 19: Sodium 150 potassium 2.9 chloride 123 creatinine 1.27 June 15: Sodium 167 chloride 141 bicarb 19 BUN 35 creatinine 1.55 White count 10.8 hemoglobin 15.6 platelets 278 sodium 173 potassium 3.8 chloride 134 BUN 57 creatinine 2.38 potassium 10.3 UA showing trace protein EKG tracing personally reviewed by me-normal sinus rhythm. Unclear baseline Previous labs reviewed: March 2021: BUN 12 creatinine 0.9 Assessment and plan: -Severe hypernatremia, from free water deficit: Slow to respond Change IV fluids to D5W -Given persistent hypernatremia and hypokalemia , assessing for Gali's disease Positive low dose 1 mg dexamethasone suppression test. With a morning cortisol level of 11. High dose dexamethasone suppression test: Cortisol level for. ACTH: 25. MRI of the pituitary gland with gadolinium enhancement Consult endocrinology Dr. López -Acute metabolic encephalopathy from renal failure and delirium: Better Follow clinically -Schizoaffective disorder, bipolar type. Psychosis: Clozaril 150 mg by mouth daily at bedtime Lamictal 25 mg twice a day Ativan 1 mg by mouth every 8 when necessary Haldol 5 mg by mouth twice a day when necessary -Left arm cellulitis IV Ancef -Bipolar disorder See above medications -Acute kidney injury, possibly prerenal: Better Continue IV fluids -Diabetes mellitus type 2, on oral hypoglycemic Hold metformin Follow Accu-Cheks -Hypothyroid, uncontrolled Increase Synthroid 112 g a day -Hyperlipidemia Lipitor 40 mg daily at bedtime TriCor 134 mg before supper -Chronic DVT both lower extremity diagnosed on October 19 2020 Preethi. Currently on Lovenox 100 mg subcu every 12-discontinue. Resume preethi Discussed results of the Gali's disease workup with Dr. López from [facility]. She'll return to see the patient. Changed IV fluids to D5W. Increase Synthroid to 112 g a day. Total time spent about 45 minutes with over 25 minutes of discussion.
[2021-06-27] MEDS: ATORVASTATIN 40 MG TAB PO SCH (22:32)
[2021-06-27] MEDS: cloZAPine 100 MG TAB PO SCH (22:32)
[2021-06-27] MEDS: FENOFIBRATE 160 MG TAB PO SCH (22:32)
[2021-06-27] MEDS: DEXTROSE 5% IN WATER 1,000 ML IV SCH (22:37)
[2021-06-28] MEDS: LEVOTHYROXINE 112 MCG TAB PO SCH (05:41)
[2021-06-28] MEDS: DEXTROSE 5% IN WATER 1,000 ML IV SCH ×3 (06:00→21:18)
[2021-06-28 07:00] LABS: Glucose,Whole Blood 162 mg/dL (75-99)
[2021-06-28 07:03] LABS: Basophils % (A) 0 %; Eosinophils % (A) 0 %; HCT 26.4 % (34.0-46.0); Hypochromasia Slight; Lymphocytes # (A) 1.3 k/uL (1.0-4.8); Lymphocytes % (A) 22 %; MCH 30.2 pg (25.0-35.0); MCHC 33.2 g/dL (31.0-37.0); MCV 90.9 fL (80.0-100.0); Mean Platelet Volume 9.3; Monocytes # (A) 0.4 k/uL (0-1.0); Monocytes % (A) 6 %; Neutrophils # (A) 4.3 k/uL (1.3-7.7); Neutrophils % (A) 70 %; Platelet Count 164 k/uL (150-450); Poikilocytosis Slight; RBC 2.91 m/uL (3.80-5.40); RDW 15.2 % (11.5-15.5); WBC 6.1 k/uL (3.8-10.6)
[2021-06-28 07:22] LABS: HGB 8.8 gm/dL (11.4-16.0)
[2021-06-28] MEDS: FAMOTIDINE 20 MG TAB PO SCH ×2 (07:50→21:17)
[2021-06-28] MEDS: APIXABAN 5 MG TAB PO SCH ×2 (07:51→21:16)
[2021-06-28] MEDS: ISOSORBIDE MONONITRATE ER 30 MG TAB.ER.24H PO SCH (07:51)
[2021-06-28] MEDS: CYANOCOBALAMIN 500 MCG TAB PO SCH (07:51)
[2021-06-28] MEDS: lamoTRIgine 25 MG TAB PO SCH ×2 (07:52→21:17)
[2021-06-28 11:42] LABS: Glucose,Whole Blood 167 mg/dL (75-99)
[2021-06-28 12:18] LABS: African American GFR (CKD) 68 (>60 ml/min/1.73 sqM); Anion Gap 8 mmol/L; Blood Urea Nitrogen 9 mg/dL (7-17); Calcium 8.8 mg/dL (8.4-10.2); Carbon Dioxide 27 mmol/L (22-30); Chloride 116 mmol/L (98-107); Glucose 157 mg/dL (74-99); Non-African American GFR(CKD) 59 (>60 ml/min/1.73 sqM); Potassium 2.8 mmol/L (3.5-5.1); Sodium 151 mmol/L (137-145)
[2021-06-28] MEDS: BACITRACIN OINT 1 EACH PACKET TOPICAL SCH ×3 (12:19→21:18)
[2021-06-28] MEDS: CEPHALEXIN 500 MG CAP PO SCH ×2 (16:17→21:18)
[2021-06-28 17:42] LABS: Glucose,Whole Blood 158 mg/dL (75-99)
[2021-06-28 20:43] LABS: Glucose,Whole Blood 120 mg/dL (75-99)
--- NOTE | 2021-06-28 20:44 | P.PN ---
Progress Note - Text Progress Note Date: 06/28/21 Chief Complaint: Abnormal labs History of presenting complaint: This is a 50-year-old patient, who follows with Dr. Saenz . known history of bipolar disorder and schizophrenia. 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 At catatonic state. Had responded well to Ativan treatment. Patient brought in from [facility]. Decreased responsiveness. Labs showed elevated sodium. Sodium is 173 with a chloride of 134. Also creatinine is up to 2.38. Patient rather delirious. Lethargic. Not able to give much of a history. Rest of the history as obtained per the ER physician. See the documentation. Patient started on IV fluids. Admitted with severe hypernatremia, acute kidney injury, acute metabolic encephalopathy/delirium. Started on D5 0.45. June 19: Getting D5 0.45. I changed IV fluids to LR. Sodium 150. Patient more awake. Mumbling. I did give the patient bite off on her burger. She daily twice and then the food ruled out from her mouth. Spoke to Dr. Khan from psychiatry. Increased patient's Clozaril to 150 mg at night. Patient is taking her medications intermittently. After talking to the nurse. Barely has been eating. Placed an order for all meals to be assisted. Also change the diet to chopped June 20: Laying in bed. Awake. Psychotic. Talking to people in the room. Poor oral intake. Taking her pills. We will change IV fluids to D5 0.45. Sodium 155 today. Spoke to the nurse to make sure the fluid is running. When I came to the room the IV line was kinked. June 21: Laying in bed. Awake. Talking with not making much sense. Spoke to theaide . Not eating. Spoke to nurse daily. Seemed to IV access became subcutaneous. Midline ordered. IV fluids increased. Sodium still on the higher side. Patient is taking her medications. June 22: Patient not eating. Refusing food. I did try to feed the patient. To 3 teaspoons. She is drinking her shakes. Taking her medications. Getting IV fluids. Sodium 154 June 23: Patient eating small amounts intermittently. Getting IV fluids. Sodium 152 not ready for discharge. Only occasionally will answer some questions, often will not make sense. Otherwise doesn't talk. June 24: May speak occasionally. Does drink shakes. Often refusing food. Getting IV fluids. Some breakdown skin on left arm. Add IV Ancef. June 25: Talking sometimes.. Doesn't make sense at times. Refusing to eat. Getting IV fluids. Patient's sodium is still 152. Given the low potassium and her physical appearance I would check for cortisol excess. We will order low- dose that is 1 mg dexamethasone suppression test. Check a cortisol level at 8 AM. June 26: Patient had a low-dose dexamethasone suppression test done last night/this morning. Cortisol level came back at 11 mcg/dL. This is suggestive of Moulton's disease. Normal being less than 1.8 for this test. I proceeded to order a high dose dexamethasone suppression test with 8 mg of dexamethasone tonight. In checking a cortisol level tomorrow morning. Also ACTH and MRI of pituitary gland with gadolinium enhancement has been ordered. Patient's only eating poor amounts. Also discussed with Dr. Lima from psychiatry. Farrah barajass on IV fluids. Sodium still up. June 27: Patient had a high dose dexamethasone test. Cortisol this morning 4. TSH high free T4 low. Increase Synthroid 112 g a day. Sodium still running high. We'll consult Dr. López from endocrinology. Eating about 25%. We will change IV fluids to D5W. June 28: Patient is due to have MRI of the brain today. Postpone till tomorrow. Patient is mainly drinking liquids in the form of an short. Sometimes will answer questions. Awake. On D5W. 4 Active Medications Acetaminophen (Acetaminophen Tab 325 Mg Tab) 650 mg PO Q6H PRN PRN Reason: Fever and/ or Pain Last Admin: 06/19/21 20:57 Dose: 650 mg Documented by: Apixaban (Apixaban 5 Mg Tab) 5 mg PO BID [facility]; Protocol Last Admin: 06/28/21 07:51 Dose: 5 mg Documented by: Atorvastatin Calcium (Atorvastatin 40 Mg Tab) 40 mg PO HS@2100 [facility] Last Admin: 06/27/21 22:32 Dose: 40 mg Documented by: Bacitracin (Bacitracin Oint 1 Each Packet) 1 each TOPICAL TID [facility]; Protocol Last Admin: 06/28/21 16:17 Dose: Not Given Documented by: Calcium Carbonate/Glycine (Calcium Carbonate 500 Mg Chewable) 1,000 mg PO Q4HR PRN PRN Reason: Dyspepsia Cephalexin (Cephalexin 500 Mg Cap) 500 mg PO TID [facility] Last Admin: 06/28/21 16:17 Dose: 500 mg Documented by: Clozapine (Clozapine 100 Mg Tab) 150 mg PO [facility] Stop: 06/28/21 23:00 Last Admin: 06/27/21 22:32 Dose: 150 mg Documented by: Clozapine (Clozapine 100 Mg Tab) 150 mg PO [facility] Stop: 07/05/21 23:59 Cyanocobalamin (Cyanocobalamin 500 Mcg Tab) 1,000 mcg PO DAILY@09 [facility] Last Admin: 06/28/21 07:51 Dose: 1,000 mcg Documented by: Dronabinol (Dronabinol 2.5 Mg Cap) 5 mg PO AC-BID [facility] Last Admin: 06/28/21 16:17 Dose: 5 mg Documented by: Famotidine (Famotidine 20 Mg Tab) 20 mg PO BID [facility] Last Admin: 06/28/21 07:50 Dose: 20 mg Documented by: Fenofibrate (Fenofibrate 160 Mg Tab) 160 mg PO HS@2099 [facility] Last Admin: 06/27/21 22:32 Dose: 160 mg Documented by: Haloperidol (Haloperidol 5 Mg Tab) 5 mg PO BID PRN PRN Reason: Psychosis Haloperidol Lactate (Haloperidol Lactate 5 Mg/Ml 1 Ml Vial) 5 mg IM Q12H PRN PRN Reason: Psychosis Dextrose/Water (Dextrose 5%-Water Iv Soln) 1,000 mls @ 125 mls/hr IV .Q8H [facility] Last Admin: 06/28/21 12:21 Dose: 125 mls/hr Documented by: Isosorbide Mononitrate (Isosorbide Mononitrate Er 30 Mg Tab.Er.24h) 30 mg PO DAILY@0900 [facility] Last Admin: 06/28/21 07:51 Dose: 30 mg Documented by: Lactulose (Lactulose 20 Gm/30 Ml Cup) 20 gm PO DAILY PRN PRN Reason: Constipation Lamotrigine (Lamotrigine 25 Mg Tab) 25 mg PO BID@00,2099 [facility] Last Admin: 06/28/21 07:52 Dose: 25 mg Documented by: Levothyroxine Sodium (Levothyroxine 112 Mcg Tab) 112 mcg PO DAILY@0630 [facility] Last Admin: 06/28/21 05:41 Dose: 112 mcg Documented by: Melatonin (Melatonin 3 Mg Tablet) 3 mg PO HS PRN PRN Reason: Insomnia Miscellaneous Information (Potassium Replacement Protocol 1 Each Misc) 1 each MISCELLANE DAILY PRN; Protocol PRN Reason: Per Protocol Miscellaneous Information (Potassium Replacement Protocol 1 Each Misc) 1 each MISCELLANE DAILY PRN; Protocol PRN Reason: Per Protocol Naloxone HCl (Naloxone 0.4 Mg/Ml 1 Ml Vial) 0.2 mg IV Q2M PRN PRN Reason: Opioid Reversal Ondansetron HCl (Ondansetron 4 Mg/2 Ml Vial) 4 mg IVP Q8HR PRN PRN Reason: Nausea And Vomiting Past medical history to include: Hypertension, hypothyroid, bipolar disorder, schizophrenia. excessive alcohol use in the past. No smoking. Psychosis, catatonic-like syndrome Social history: Heavy alcohol use in the past. . No smoking. Currently at [facility] Family history: Patient cannot tell Physical examination: VITAL SIGNS: 98.6, 82, 18, 100/65, 96% room air GENERAL: awake, , will speak occasionally. Some cushingoid appearance EYES: Pupils equal. Conjunctiva normal. HEENT: External appearance of nose and ears normal, oral cavity dry. NECK: JVD unable to assess; masses not palpable. HEART: First and second heart sounds are normal; no edema. LUNGS: Respiratory rate normal; clear to auscultation. ABDOMEN: Soft, nontender, liver spleen not palpable, no masses palpable. PSYCH: Occasionally speak. Continuous not to make sense often when she speaks DERMATOLOGICAL: area of skin broke down from bullae left arm MUSCULOSKELETAL:No Clubbing/cyanosis;muscles-grossly intact NEUROLOGICAL: [Cranial nerves grossly intact; no facial asymmetry, moving limbs. INVESTIGATIONS, reviewed in the clinical context: June 28: White count 6.1 hemoglobin 8.8 sodium 151 potassium 2.8 June 27: TSH 25.5 free T4 0.35 High-dose dexamethasone suppression test. A.m. cortisol 4 ACTH: 14 July 7: Sodium 154 potassium 3.5 Low-dose dexamethasone suppression test. A.m. cortisol 30 June 6: Sodium 152 potassium 3 creatinine 1.04 June 5: Sodium 151 potassium 3.1 creatinine 1.04 June 4: White count 4 hemoglobin 10.9 sodium 152 chloride 124 June 3: Sodium 154 potassium 3.1 BUN 6 creatinine 1.16 June 21: White count 4.3 hemoglobin 11.9 sodium 154 potassium 3.2 creatinine 1.19 serum osmolality 322 June 20: Sodium 155 potassium 3.3 creatinine 1.19 June 19: Sodium 150 potassium 2.9 chloride 123 creatinine 1.27 June 15: Sodium 167 chloride 141 bicarb 19 BUN 35 creatinine 1.55 White count 10.8 hemoglobin 15.6 platelets 278 sodium 173 potassium 3.8 chloride 134 BUN 57 creatinine 2.38 potassium 10.3 UA showing trace protein EKG tracing personally reviewed by me-normal sinus rhythm. Unclear baseline Previous labs reviewed: March 2021: BUN 12 creatinine 0.9 Assessment and plan: -Severe hypernatremia, from free water deficit: Slow to respond Change IV fluids to D5W -Given persistent hypernatremia and hypokalemia , assessing for Moulton's disease Positive low dose 1 mg dexamethasone suppression test. With a morning cortisol level of 11. High dose dexamethasone suppression test: Cortisol level for. ACTH: 25. MRI of the pituitary gland with gadolinium enhancement Consult endocrinology Dr. López -Acute metabolic encephalopathy from renal failure and delirium: Better Follow clinically -Schizoaffective disorder, bipolar type. Psychosis: Clozaril 150 mg by mouth daily at bedtime Lamictal 25 mg twice a day Ativan 1 mg by mouth every 8 when necessary Haldol 5 mg by mouth twice a day when necessary -Left arm cellulitis IV Ancef. Changed to by mouth Keflex -Bipolar disorder See above medications -Acute kidney injury, possibly prerenal: Better Continue IV fluids -Diabetes mellitus type 2, on oral hypoglycemic Hold metformin Follow Accu-Cheks -Hypothyroid, uncontrolled Increase Synthroid 112 g a day -Hyperlipidemia Lipitor 40 mg daily at bedtime TriCor 134 mg before supper -Chronic DVT both lower extremity diagnosed on October 19 2020 Eliquis. Currently on Lovenox 100 mg subcu every 12-discontinue. Resume eliquis Continue IV fluids. Encourage oral feeding. MRI of the brain been postponed till tomorrow. Other medications to continue. Check labs.
[2021-06-28] MEDS: ATORVASTATIN 40 MG TAB PO SCH (21:16)
[2021-06-28] MEDS: cloZAPine 100 MG TAB PO SCH (21:17)
[2021-06-28] MEDS: FENOFIBRATE 160 MG TAB PO SCH (22:21)
[2021-06-29] MEDS: DEXTROSE 5% IN WATER 1,000 ML IV SCH ×2 (04:33→13:36)
[2021-06-29] MEDS: LEVOTHYROXINE 112 MCG TAB PO SCH (05:53)
[2021-06-29 07:03] LABS: Glucose,Whole Blood 185 mg/dL (75-99)
[2021-06-29 07:28] LABS: Basophils % (A) 1 %; Eosinophils % (A) 0 %; HCT 27.2 % (34.0-46.0); HGB 8.9 gm/dL (11.4-16.0); Hypochromasia Slight; Lymphocytes # (A) 1.3 k/uL (1.0-4.8); Lymphocytes % (A) 23 %; MCH 29.3 pg (25.0-35.0); MCHC 32.6 g/dL (31.0-37.0); MCV 89.7 fL (80.0-100.0); Mean Platelet Volume 8.9; Monocytes # (A) 0.2 k/uL (0-1.0); Monocytes % (A) 5 %; Neutrophils # (A) 3.8 k/uL (1.3-7.7); Neutrophils % (A) 70 %; Platelet Count 184 k/uL (150-450); Poikilocytosis Slight; RBC 3.04 m/uL (3.80-5.40); RDW 15.6 % (11.5-15.5); WBC 5.5 k/uL (3.8-10.6)
[2021-06-29 07:52] LABS: African American GFR (CKD) 74 (>60 ml/min/1.73 sqM); Anion Gap 5 mmol/L; Blood Urea Nitrogen 8 mg/dL (7-17); Calcium 8.9 mg/dL (8.4-10.2); Carbon Dioxide 28 mmol/L (22-30); Chloride 114 mmol/L (98-107); Glucose 178 mg/dL (74-99); Non-African American GFR(CKD) 64 (>60 ml/min/1.73 sqM); Potassium 2.8 mmol/L (3.5-5.1); Sodium 147 mmol/L (137-145)
[2021-06-29] MEDS: FAMOTIDINE 20 MG TAB PO SCH ×2 (10:25→21:41)
[2021-06-29] MEDS: CYANOCOBALAMIN 500 MCG TAB PO SCH (10:25)
[2021-06-29] MEDS: lamoTRIgine 25 MG TAB PO SCH ×2 (10:25→21:41)
[2021-06-29] MEDS: ISOSORBIDE MONONITRATE ER 30 MG TAB.ER.24H PO SCH (10:25)
[2021-06-29] MEDS: BACITRACIN OINT 1 EACH PACKET TOPICAL SCH ×3 (10:26→21:50)
[2021-06-29] MEDS: CEPHALEXIN 500 MG CAP PO SCH ×3 (10:26→21:42)
[2021-06-29] MEDS: APIXABAN 5 MG TAB PO SCH ×2 (10:26→21:41)
[2021-06-29 11:09] LABS: Glucose,Whole Blood 178 mg/dL (75-99)
[2021-06-29] MEDS ORDERED: Potassium Replacement Protocol 1 EACH MISC MISCELLANE PRN ×2 (11:18→17:23)
[2021-06-29] MEDS ORDERED: POTASSIUM CHLORIDE ER 20 MEQ TAB.ER PO STA (12:08)
[2021-06-29] MEDS: POTASSIUM CHLORIDE ER 20 MEQ TAB.ER PO SCH ×5 (12:51→18:14)
[2021-06-29 17:13] LABS: Glucose,Whole Blood 136 mg/dL (75-99)
[2021-06-29 20:04] LABS: Glucose,Whole Blood 182 mg/dL (75-99)
[2021-06-29] MEDS: ATORVASTATIN 40 MG TAB PO SCH (21:41)
[2021-06-29] MEDS: FENOFIBRATE 160 MG TAB PO SCH (21:41)
[2021-06-29] MEDS: cloZAPine 100 MG TAB PO SCH (21:42)
--- NOTE | 2021-06-29 21:43 | P.PN ---
Progress Note - Text Progress Note Date: 06/29/21 Chief Complaint: Abnormal labs History of presenting complaint: This is a 50-year-old patient, who follows with Dr. Saenz . known history of bipolar disorder and schizophrenia. 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 At catatonic state. Had responded well to Ativan treatment. Patient brought in from [facility]. Decreased responsiveness. Labs showed elevated sodium. Sodium is 173 with a chloride of 134. Also creatinine is up to 2.38. Patient rather delirious. Lethargic. Not able to give much of a history. Rest of the history as obtained per the ER physician. See the documentation. Patient started on IV fluids. Admitted with severe hypernatremia, acute kidney injury, acute metabolic encephalopathy/delirium. Started on D5 0.45. June 19: Getting D5 0.45. I changed IV fluids to LR. Sodium 150. Patient more awake. Mumbling. I did give the patient bite off on her burger. She daily twice and then the food ruled out from her mouth. Spoke to Dr. Khan from psychiatry. Increased patient's Clozaril to 150 mg at night. Patient is taking her medications intermittently. After talking to the nurse. Barely has been eating. Placed an order for all meals to be assisted. Also change the diet to chopped June 20: Laying in bed. Awake. Psychotic. Talking to people in the room. Poor oral intake. Taking her pills. We will change IV fluids to D5 0.45. Sodium 155 today. Spoke to the nurse to make sure the fluid is running. When I came to the room the IV line was kinked. June 21: Laying in bed. Awake. Talking with not making much sense. Spoke to theaide . Not eating. Spoke to nurse daily. Seemed to IV access became subcutaneous. Midline ordered. IV fluids increased. Sodium still on the higher side. Patient is taking her medications. June 22: Patient not eating. Refusing food. I did try to feed the patient. To 3 teaspoons. She is drinking her shakes. Taking her medications. Getting IV fluids. Sodium 154 June 23: Patient eating small amounts intermittently. Getting IV fluids. Sodium 152 not ready for discharge. Only occasionally will answer some questions, often will not make sense. Otherwise doesn't talk. June 24: May speak occasionally. Does drink shakes. Often refusing food. Getting IV fluids. Some breakdown skin on left arm. Add IV Ancef. June 25: Talking sometimes.. Doesn't make sense at times. Refusing to eat. Getting IV fluids. Patient's sodium is still 152. Given the low potassium and her physical appearance I would check for cortisol excess. We will order low- dose that is 1 mg dexamethasone suppression test. Check a cortisol level at 8 AM. June 26: Patient had a low-dose dexamethasone suppression test done last night/this morning. Cortisol level came back at 11 mcg/dL. This is suggestive of Wellpinit's disease. Normal being less than 1.8 for this test. I proceeded to order a high dose dexamethasone suppression test with 8 mg of dexamethasone tonight. In checking a cortisol level tomorrow morning. Also ACTH and MRI of pituitary gland with gadolinium enhancement has been ordered. Patient's only eating poor amounts. Also discussed with Dr. Lima from psychiatry. Farrah barajass on IV fluids. Sodium still up. June 27: Patient had a high dose dexamethasone test. Cortisol this morning 4. TSH high free T4 low. Increase Synthroid 112 g a day. Sodium still running high. We'll consult Dr. López from endocrinology. Eating about 25%. We will change IV fluids to D5W. June 28: Patient is due to have MRI of the brain today. Postpone till tomorrow. Patient is mainly drinking liquids in the form of an short. Sometimes will answer questions. Awake. On D5W. 4 June 29: Patient was not cooperative for the MRI. Hence it could not be done. Oral intake variable. Sodium 147. Potassium replaced Active Medications Acetaminophen (Acetaminophen Tab 325 Mg Tab) 650 mg PO Q6H PRN PRN Reason: Fever and/ or Pain Last Admin: 06/19/21 20:57 Dose: 650 mg Documented by: Apixaban (Apixaban 5 Mg Tab) 5 mg PO BID [facility]; Protocol Last Admin: 06/29/21 21:41 Dose: 5 mg Documented by: Atorvastatin Calcium (Atorvastatin 40 Mg Tab) 40 mg PO HS@2100 [facility] Last Admin: 06/28/21 21:16 Dose: 40 mg Documented by: Bacitracin (Bacitracin Oint 1 Each Packet) 1 each TOPICAL TID [facility]; Protocol Last Admin: 06/29/21 15:52 Dose: Not Given Documented by: Calcium Carbonate/Glycine (Calcium Carbonate 500 Mg Chewable) 1,000 mg PO Q4HR PRN PRN Reason: Dyspepsia Cephalexin (Cephalexin 500 Mg Cap) 500 mg PO TID [facility] Last Admin: 06/29/21 16:57 Dose: 500 mg Documented by: Clozapine (Clozapine 100 Mg Tab) 150 mg PO HS [facility] Stop: 07/05/21 23:59 Cyanocobalamin (Cyanocobalamin 500 Mcg Tab) 1,000 mcg PO DAILY@0900 [facility] Last Admin: 06/29/21 10:25 Dose: 1,000 mcg Documented by: Dronabinol (Dronabinol 2.5 Mg Cap) 5 mg PO AC-BID [facility] Last Admin: 06/29/21 16:57 Dose: 5 mg Documented by: Famotidine (Famotidine 20 Mg Tab) 20 mg PO BID [facility] Last Admin: 06/29/21 10:25 Dose: 20 mg Documented by: Fenofibrate (Fenofibrate 160 Mg Tab) 160 mg PO HS@2100 [facility] Last Admin: 06/28/21 22:21 Dose: 160 mg Documented by: Haloperidol (Haloperidol 5 Mg Tab) 5 mg PO BID PRN PRN Reason: Psychosis Haloperidol Lactate (Haloperidol Lactate 5 Mg/Ml 1 Ml Vial) 5 mg IM Q12H PRN PRN Reason: Psychosis Dextrose/Water (Dextrose 5%-Water Iv Soln) 1,000 mls @ 125 mls/hr IV .Q8H [facility] Last Admin: 06/29/21 13:36 Dose: 125 mls/hr Documented by: Isosorbide Mononitrate (Isosorbide Mononitrate Er 30 Mg Tab.Er.24h) 30 mg PO DAILY@0900 [facility] Last Admin: 06/29/21 10:25 Dose: 30 mg Documented by: Lactulose (Lactulose 20 Gm/30 Ml Cup) 20 gm PO DAILY PRN PRN Reason: Constipation Lamotrigine (Lamotrigine 25 Mg Tab) 25 mg PO BID@0900,2100 [facility] Last Admin: 06/29/21 10:25 Dose: 25 mg Documented by: Levothyroxine Sodium (Levothyroxine 112 Mcg Tab) 112 mcg PO DAILY@0630 [facility] Last Admin: 06/29/21 05:53 Dose: Not Given Documented by: Melatonin (Melatonin 3 Mg Tablet) 3 mg PO HS PRN PRN Reason: Insomnia Miscellaneous Information (Potassium Replacement Protocol 1 Each Mis) 1 each MISCELLANE DAILY PRN; Protocol PRN Reason: Per Protocol Miscellaneous Information (Potassium Replacement Protocol 1 Each Misc) 1 each MISCELLANE DAILY PRN; Protocol PRN Reason: Per Protocol Naloxone HCl (Naloxone 0.4 Mg/Ml 1 Ml Vial) 0.2 mg IV Q2M PRN PRN Reason: Opioid Reversal Ondansetron HCl (Ondansetron 4 Mg/2 Ml Vial) 4 mg IVP Q8HR PRN PRN Reason: Nausea And Vomiting Past medical history to include: Hypertension, hypothyroid, bipolar disorder, schizophrenia. excessive alcohol use in the past. No smoking. Psychosis, catatonic-like syndrome Social history: Heavy alcohol use in the past. . No smoking. Currently at [facility] Family history: Patient cannot tell Physical examination: VITAL SIGNS: 98.5, 81, 16, 94/59, 95% room air GENERAL: awake, , will speak occasionally. cushingoid appearance EYES: Pupils equal. Conjunctiva normal. HEENT: External appearance of nose and ears normal, oral cavity dry. NECK: JVD unable to assess; masses not palpable. HEART: First and second heart sounds are normal; no edema. LUNGS: Respiratory rate normal; clear to auscultation. ABDOMEN: Soft, nontender, liver spleen not palpable, no masses palpable. PSYCH: Occasionally speak. Continuous not to make sense often when she speaks DERMATOLOGICAL: area of skin broke down from bullae left arm MUSCULOSKELETAL:No Clubbing/cyanosis;muscles-grossly intact NEUROLOGICAL: [Cranial nerves grossly intact; no facial asymmetry, moving limbs. INVESTIGATIONS, reviewed in the clinical context: June 29: White count 5.5 with 8.9 sodium 147 potassium 2.8. Repeat 3.3 June 28: White count 6.1 hemoglobin 8.8 sodium 151 potassium 2.8 June 27: TSH 25.5 free T4 0.35 High-dose dexamethasone suppression test. A.m. cortisol 4 ACTH: 14 July 7: Sodium 154 potassium 3.5 Low-dose dexamethasone suppression test. A.m. cortisol 30 June 6: Sodium 152 potassium 3 creatinine 1.04 June 5: Sodium 151 potassium 3.1 creatinine 1.04 June 4: White count 4 hemoglobin 10.9 sodium 152 chloride 124 February 3: Sodium 154 potassium 3.1 BUN 6 creatinine 1.16 June 21: White count 4.3 hemoglobin 11.9 sodium 154 potassium 3.2 creatinine 1.19 serum osmolality 322 June 20: Sodium 155 potassium 3.3 creatinine 1.19 June 19: Sodium 150 potassium 2.9 chloride 123 creatinine 1.27 June 15: Sodium 167 chloride 141 bicarb 19 BUN 35 creatinine 1.55 White count 10.8 hemoglobin 15.6 platelets 278 sodium 173 potassium 3.8 chloride 134 BUN 57 creatinine 2.38 potassium 10.3 UA showing trace protein EKG tracing personally reviewed by me-normal sinus rhythm. Unclear baseline Previous labs reviewed: March 2021: BUN 12 creatinine 0.9 Assessment and plan: -Severe hypernatremia, from free water deficit: Marcelino D5W -Given persistent hypernatremia and hypokalemia , assessing for Wellpinit's disease Positive low dose 1 mg dexamethasone suppression test. With a morning cortisol level of 11. High dose dexamethasone suppression test: Cortisol level for. ACTH: 25. MRI of the pituitary gland with gadolinium enhancement: Cannot be done as patient was noncooperative Consult endocrinology Dr. López -Acute metabolic encephalopathy from renal failure and delirium: Better Follow clinically -Schizoaffective disorder, bipolar type. Psychosis: Clozaril 150 mg by mouth daily at bedtime Lamictal 25 mg twice a day Ativan 1 mg by mouth every 8 when necessary Haldol 5 mg by mouth twice a day when necessary -Left arm cellulitis IV Ancef. Changed to by mouth Keflex -Bipolar disorder See above medications -Acute kidney injury, possibly prerenal: Better Continue IV fluids -Diabetes mellitus type 2, on oral hypoglycemic Hold metformin Follow Accu-Cheks -Hypothyroid, uncontrolled Increase Synthroid 112 g a day -Hyperlipidemia Lipitor 40 mg daily at bedtime TriCor 134 mg before supper -Chronic DVT both lower extremity diagnosed on October 19 2020 Sushilaquis. Currently on Lovenox 100 mg subcu every 12-discontinue. Resume eliquis We do not have endocrinology of the hospital. I have requested Dr. Everardo López. Due to a schedule doubt she is able to make it here. We'll talk to the guardian. Limited options
[2021-06-30] MEDS: DEXTROSE 5% IN WATER 1,000 ML IV SCH ×4 (00:05→23:57)
[2021-06-30 07:02] LABS: Glucose,Whole Blood 187 mg/dL (75-99)
[2021-06-30] MEDS: lamoTRIgine 25 MG TAB PO SCH ×2 (08:32→21:42)
[2021-06-30] MEDS: APIXABAN 5 MG TAB PO SCH ×2 (08:32→21:42)
[2021-06-30] MEDS: FAMOTIDINE 20 MG TAB PO SCH ×2 (08:32→21:41)
[2021-06-30] MEDS: CEPHALEXIN 500 MG CAP PO SCH ×3 (08:32→21:42)
[2021-06-30] MEDS: ISOSORBIDE MONONITRATE ER 30 MG TAB.ER.24H PO SCH (08:33)
[2021-06-30] MEDS: LEVOTHYROXINE 112 MCG TAB PO SCH (08:33)
[2021-06-30] MEDS: BACITRACIN OINT 1 EACH PACKET TOPICAL SCH ×3 (08:34→21:41)
[2021-06-30] MEDS: CYANOCOBALAMIN 500 MCG TAB PO SCH (08:55)
[2021-06-30 11:42] LABS: Glucose,Whole Blood 162 mg/dL (75-99)
[2021-06-30 13:16] LABS: African American GFR (CKD) 67 (>60 ml/min/1.73 sqM); Anion Gap 6 mmol/L; Blood Urea Nitrogen 9 mg/dL (7-17); Calcium 9.4 mg/dL (8.4-10.2); Carbon Dioxide 29 mmol/L (22-30); Chloride 112 mmol/L (98-107); Glucose 174 mg/dL (74-99); Non-African American GFR(CKD) 58 (>60 ml/min/1.73 sqM); Potassium 3.4 mmol/L (3.5-5.1); Sodium 147 mmol/L (137-145)
[2021-06-30 17:08] LABS: Glucose,Whole Blood 157 mg/dL (75-99)
[2021-06-30 20:13] LABS: Glucose,Whole Blood 130 mg/dL (75-99)
[2021-06-30] MEDS ORDERED: POTASSIUM CHLORIDE ER 20 MEQ TAB.ER PO STA (20:27)
--- NOTE | 2021-06-30 20:36 | P.PN ---
Progress Note - Text Progress Note Date: 06/30/21 Chief Complaint: Abnormal labs History of presenting complaint: This is a 50-year-old patient, who follows with Dr. Saenz . known history of bipolar disorder and schizophrenia. 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 At catatonic state. Had responded well to Ativan treatment. Patient brought in from [facility]. Decreased responsiveness. Labs showed elevated sodium. Sodium is 173 with a chloride of 134. Also creatinine is up to 2.38. Patient rather delirious. Lethargic. Not able to give much of a history. Rest of the history as obtained per the ER physician. See the documentation. Patient started on IV fluids. Admitted with severe hypernatremia, acute kidney injury, acute metabolic encephalopathy/delirium. Started on D5 0.45. June 19: Getting D5 0.45. I changed IV fluids to LR. Sodium 150. Patient more awake. Mumbling. I did give the patient bite off on her burger. She daily twice and then the food ruled out from her mouth. Spoke to Dr. Khan from psychiatry. Increased patient's Clozaril to 150 mg at night. Patient is taking her medications intermittently. After talking to the nurse. Barely has been eating. Placed an order for all meals to be assisted. Also change the diet to chopped June 20: Laying in bed. Awake. Psychotic. Talking to people in the room. Poor oral intake. Taking her pills. We will change IV fluids to D5 0.45. Sodium 155 today. Spoke to the nurse to make sure the fluid is running. When I came to the room the IV line was kinked. June 21: Laying in bed. Awake. Talking with not making much sense. Spoke to theaide . Not eating. Spoke to nurse daily. Seemed to IV access became subcutaneous. Midline ordered. IV fluids increased. Sodium still on the higher side. Patient is taking her medications. June 22: Patient not eating. Refusing food. I did try to feed the patient. To 3 teaspoons. She is drinking her shakes. Taking her medications. Getting IV fluids. Sodium 154 June 23: Patient eating small amounts intermittently. Getting IV fluids. Sodium 152 not ready for discharge. Only occasionally will answer some questions, often will not make sense. Otherwise doesn't talk. June 24: May speak occasionally. Does drink shakes. Often refusing food. Getting IV fluids. Some breakdown skin on left arm. Add IV Ancef. June 25: Talking sometimes.. Doesn't make sense at times. Refusing to eat. Getting IV fluids. Patient's sodium is still 152. Given the low potassium and her physical appearance I would check for cortisol excess. We will order low- dose that is 1 mg dexamethasone suppression test. Check a cortisol level at 8 AM. June 26: Patient had a low-dose dexamethasone suppression test done last night/this morning. Cortisol level came back at 11 mcg/dL. This is suggestive of Freehold's disease. Normal being less than 1.8 for this test. I proceeded to order a high dose dexamethasone suppression test with 8 mg of dexamethasone tonight. In checking a cortisol level tomorrow morning. Also ACTH and MRI of pituitary gland with gadolinium enhancement has been ordered. Patient's only eating poor amounts. Also discussed with Dr. Lima from psychiatry. Farrah barajass on IV fluids. Sodium still up. June 27: Patient had a high dose dexamethasone test. Cortisol this morning 4. TSH high free T4 low. Increase Synthroid 112 g a day. Sodium still running high. We'll consult Dr. López from endocrinology. Eating about 25%. We will change IV fluids to D5W. June 28: Patient is due to have MRI of the brain today. Postpone till tomorrow. Patient is mainly drinking liquids in the form of an short. Sometimes will answer questions. Awake. On D5W. 4 June 29: Patient was not cooperative for the MRI. Hence it could not be done. Oral intake variable. Sodium 147. Potassium replaced June 30: Really do not have endocrinology service in the hospital. I did run by her results with Dr. Everardo Sharif locks tender. Just from looking a result she felt this may not be Gali's. And patient to have further outpatient testing. I also spoke to patient's over the phone. Given update. In the corrections caseworker. We'll discharge the patient back to [facility] outpatient. Active Medications Acetaminophen (Acetaminophen Tab 325 Mg Tab) 650 mg PO Q6H PRN PRN Reason: Fever and/ or Pain Last Admin: 06/19/21 20:57 Dose: 650 mg Documented by: Apixaban (Apixaban 5 Mg Tab) 5 mg PO BID [facility]; Protocol Last Admin: 06/30/21 08:32 Dose: 5 mg Documented by: Atorvastatin Calcium (Atorvastatin 40 Mg Tab) 40 mg PO HS@2100 [facility] Last Admin: 06/29/21 21:41 Dose: 40 mg Documented by: Bacitracin (Bacitracin Oint 1 Each Packet) 1 each TOPICAL TID [facility]; Protocol Last Admin: 06/30/21 18:50 Dose: Not Given Documented by: Calcium Carbonate/Glycine (Calcium Carbonate 500 Mg Chewable) 1,000 mg PO Q4HR PRN PRN Reason: Dyspepsia Cephalexin (Cephalexin 500 Mg Cap) 500 mg PO TID [facility] Last Admin: 06/30/21 16:55 Dose: 500 mg Documented by: Clozapine (Clozapine 100 Mg Tab) 150 mg PO [facility] Stop: 07/05/21 23:59 Last Admin: 06/29/21 21:42 Dose: Not Given Documented by: Cyanocobalamin (Cyanocobalamin 500 Mcg Tab) 1,000 mcg PO DAILY@0900 [facility] Last Admin: 06/30/21 08:55 Dose: 1,000 mcg Documented by: Dronabinol (Dronabinol 2.5 Mg Cap) 5 mg PO AC-BID [facility] Last Admin: 06/30/21 16:55 Dose: 5 mg Documented by: Famotidine (Famotidine 20 Mg Tab) 20 mg PO BID [facility] Last Admin: 06/30/21 08:32 Dose: 20 mg Documented by: Fenofibrate (Fenofibrate 160 Mg Tab) 160 mg PO HS@2100 [facility] Last Admin: 06/29/21 21:41 Dose: 160 mg Documented by: Haloperidol (Haloperidol 5 Mg Tab) 5 mg PO BID PRN PRN Reason: Psychosis Haloperidol Lactate (Haloperidol Lactate 5 Mg/Ml 1 Ml Vial) 5 mg IM Q12H PRN PRN Reason: Psychosis Dextrose/Water (Dextrose 5%-Water Iv Soln) 1,000 mls @ 125 mls/hr IV .Q8H [facility] Last Admin: 06/30/21 10:14 Dose: 125 mls/hr Documented by: Isosorbide Mononitrate (Isosorbide Mononitrate Er 30 Mg Tab.Er.24h) 30 mg PO DAILY@0900 [facility] Last Admin: 06/30/21 08:33 Dose: 30 mg Documented by: Lactulose (Lactulose 20 Gm/30 Ml Cup) 20 gm PO DAILY PRN PRN Reason: Constipation Lamotrigine (Lamotrigine 25 Mg Tab) 25 mg PO BID@0900,2100 [facility] Last Admin: 06/30/21 08:32 Dose: 25 mg Documented by: Levothyroxine Sodium (Levothyroxine 112 Mcg Tab) 112 mcg PO DAILY@0630 [facility] Last Admin: 06/30/21 08:33 Dose: 112 mcg Documented by: Melatonin (Melatonin 3 Mg Tablet) 3 mg PO HS PRN PRN Reason: Insomnia Miscellaneous Information (Potassium Replacement Protocol 1 Each Misc) 1 each MISCELLANE DAILY PRN; Protocol PRN Reason: Per Protocol Miscellaneous Information (Potassium Replacement Protocol 1 Each Misc) 1 each MISCELLANE DAILY PRN; Protocol PRN Reason: Per Protocol Naloxone HCl (Naloxone 0.4 Mg/Ml 1 Ml Vial) 0.2 mg IV Q2M PRN PRN Reason: Opioid Reversal Ondansetron HCl (Ondansetron 4 Mg/2 Ml Vial) 4 mg IVP Q8HR PRN PRN Reason: Nausea And Vomiting Past medical history to include: Hypertension, hypothyroid, bipolar disorder, schizophrenia. excessive alcohol use in the past. No smoking. Psychosis, catatonic-like syndrome Social history: Heavy alcohol use in the past. . No smoking. Currently at [facility] Family history: Patient cannot tell Physical examination: VITAL SIGNS: 98.1, 91, 17, 111/77, 96% on room air GENERAL: awake, , will speak occasionally. cushingoid appearance EYES: Pupils equal. Conjunctiva normal. HEENT: External appearance of nose and ears normal, oral cavity dry. NECK: JVD unable to assess; masses not palpable. HEART: First and second heart sounds are normal; no edema. LUNGS: Respiratory rate normal; clear to auscultation. ABDOMEN: Soft, nontender, liver spleen not palpable, no masses palpable. PSYCH: Occasionally speak. DERMATOLOGICAL: area of skin broke down from bullae left arm: Improved MUSCULOSKELETAL:No Clubbing/cyanosis;muscles-grossly intact NEUROLOGICAL: [Cranial nerves grossly intact; no facial asymmetry, moving limbs. INVESTIGATIONS, reviewed in the clinical context: June 30: Sodium 147 potassium 3.4 creatinine 1.1 June 29: White count 5.5 with 8.9 sodium 147 potassium 2.8. Repeat 3.3 June 28: White count 6.1 hemoglobin 8.8 sodium 151 potassium 2.8 June 27: TSH 25.5 free T4 0.35 High-dose dexamethasone suppression test. A.m. cortisol 4 ACTH: 14 July 7: Sodium 154 potassium 3.5 Low-dose dexamethasone suppression test. A.m. cortisol 30 June 6: Sodium 152 potassium 3 creatinine 1.04 June 5: Sodium 151 potassium 3.1 creatinine 1.04 June 4: White count 4 hemoglobin 10.9 sodium 152 chloride 124 June 3: Sodium 154 potassium 3.1 BUN 6 creatinine 1.16 June 2: White count 4.3 hemoglobin 11.9 sodium 154 potassium 3.2 creatinine 1.19 serum osmolality 322 June 20: Sodium 155 potassium 3.3 creatinine 1.19 June 19: Sodium 150 potassium 2.9 chloride 123 creatinine 1.27 June 15: Sodium 167 chloride 141 bicarb 19 BUN 35 creatinine 1.55 White count 10.8 hemoglobin 15.6 platelets 278 sodium 173 potassium 3.8 chloride 134 BUN 57 creatinine 2.38 potassium 10.3 UA showing trace protein EKG tracing personally reviewed by me-normal sinus rhythm. Unclear baseline Previous labs reviewed: March 2021: BUN 12 creatinine 0.9 Assessment and plan: -Severe hypernatremia, from free water deficit: Improved D5W -Given persistent hypernatremia and hypokalemia , assessing for Freehold's disease Positive low dose 1 mg dexamethasone suppression test. With a morning cortisol level of 11. High dose dexamethasone suppression test: Cortisol level for. ACTH: 25. MRI of the pituitary gland with gadolinium enhancement: Cannot be done as patient was noncooperative Did send the labs from Dr. Everardo lópez locks tender. Patient was also not conclusive for Gali's. Patient will need to have further testing done as outpatient. -Acute metabolic encephalopathy from renal failure and delirium: Better Follow clinically -Schizoaffective disorder, bipolar type. Psychosis: Clozaril 150 mg by mouth daily at bedtime Lamictal 25 mg twice a day Ativan 1 mg by mouth every 8 when necessary Haldol 5 mg by mouth twice a day when necessary -Left arm cellulitis IV Ancef. Changed to by mouth Keflex -Bipolar disorder See above medications -Acute kidney injury, possibly prerenal: Better Continue IV fluids -Diabetes mellitus type 2, on oral hypoglycemic Hold metformin Follow Accu-Cheks -Hypothyroid, uncontrolled Increase Synthroid 112 g a day -Hyperlipidemia Lipitor 40 mg daily at bedtime TriCor 134 mg before supper -Chronic DVT both lower extremity diagnosed on October 19 2020 Eliquis. Currently on Lovenox 100 mg subcu every 12-discontinue. Resume eliquis -Full code Further testing as outpatient. Spoke to patient's . Spoke to corrections caseworker. Arrange for patient to go back tomorrow. Also, communicated with Dr. Everardo López endocrinology. Total time spent about 45 minutes today with over 25 minutes of discussion.
[2021-06-30] MEDS: cloZAPine 100 MG TAB PO SCH (21:41)
[2021-06-30] MEDS: ATORVASTATIN 40 MG TAB PO SCH (21:42)
[2021-06-30] MEDS: FENOFIBRATE 160 MG TAB PO SCH (21:42)
[2021-07-01] MEDS: DEXTROSE 5% IN WATER 1,000 ML IV SCH (06:14)
[2021-07-01] MEDS: LEVOTHYROXINE 112 MCG TAB PO SCH (06:14)
[2021-07-01 07:07] LABS: Glucose,Whole Blood 180 mg/dL (75-99)
[2021-07-01 07:26] LABS: African American GFR (CKD) 80 (>60 ml/min/1.73 sqM); Anion Gap 5 mmol/L; Blood Urea Nitrogen 9 mg/dL (7-17); Calcium 8.9 mg/dL (8.4-10.2); Carbon Dioxide 29 mmol/L (22-30); Chloride 113 mmol/L (98-107); Glucose 180 mg/dL (74-99); Non-African American GFR(CKD) 70 (>60 ml/min/1.73 sqM); Potassium 3.4 mmol/L (3.5-5.1); Sodium 147 mmol/L (137-145)
[2021-07-01] MEDS: CYANOCOBALAMIN 500 MCG TAB PO SCH (09:26)
[2021-07-01] MEDS: ISOSORBIDE MONONITRATE ER 30 MG TAB.ER.24H PO SCH (09:26)
[2021-07-01] MEDS: APIXABAN 5 MG TAB PO SCH (09:26)
[2021-07-01] MEDS: BACITRACIN OINT 1 EACH PACKET TOPICAL SCH (09:26)
[2021-07-01] MEDS: CEPHALEXIN 500 MG CAP PO SCH (09:26)
[2021-07-01] MEDS: FAMOTIDINE 20 MG TAB PO SCH (09:26)
[2021-07-01] MEDS: lamoTRIgine 25 MG TAB PO SCH (09:26)
[2021-07-01] MEDS ORDERED: POTASSIUM CHLORIDE ER 20 MEQ TAB.ER PO STA (10:31)
--- NOTE | 2021-07-01 10:54 | P.DS ---
Providers Date of admission: 06/14/21 17:21 Expected date of discharge: 07/01/21 Attending physician: Dakota Carrasco Consults: 06/14/21 20:02 Consult Physician Routine Consulting Provider: Bhavin Lima Consult Reason/Comments: Bipolar/catatonic disorder Do you want consulting provider notified?: Yes 06/27/21 21:17 Consult Physician Routine Consulting Provider: Kylah López Consult Reason/Comments: Possible Gali's Do you want consulting provider notified?: Already Contacted Primary care physician: Giuseppe Britomley [facility] Course: Chief Complaint: Abnormal labs History of presenting complaint: This is a 50-year-old patient, who follows with Dr. Saenz . known history of bipolar disorder and schizophrenia. 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 At catatonic state. Had responded well to Ativan treatment. Patient brought in from [facility]. Decreased responsivenes s. Labs showed elevated sodium. Sodium is 173 with a chloride of 134. Also creatinine is up to 2.38. Patient rather delirious. Lethargic. Not able to give much of a history. Rest of the history as obtained per the ER physician. See the documentation. Patient started on IV fluids. Admitted with severe hypernatremia, acute kidney injury, acute metabolic encephalopathy/delirium. Started on D5 0.45. June 19: Getting D5 0.45. I changed IV fluids to LR. Sodium 150. Patient more awake. Mumbling. I did give the patient bite off on her burger. She daily twice and then the food ruled out from her mouth. Spoke to Dr. Khan from psychiatry. Increased patient's Clozaril to 150 mg at night. Patient is taking her medications intermittently. After talking to the nurse. Barely has been eating. Placed an order for all meals to be assisted. Also change the diet to chopped. Patient did better with Clozaril. Was given IV fluids. Sodium came down. Followed by Dr. Lima from psychiatry. 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 Low-dose dexamethasone suppression test done showed a a.m. cortisol level of 11 mcg/dL. High dose dexamethasone suppression test with 8 mg of dexamethasone give a morning cortisol level of 4 ACTH: 25 Patient's dose of Synthroid was increased 112 as a TSH was high, free T4 was low. We do not have endocrinology services in the hospital. I did run's the numbers above with Dr. Everardo López the dairy equipment mechanic. Patient will need further testing as outpatient. MRI of the pituitary could not be done as patient was not cooperative. Patient does like to drink ensure. Very picky about food. Patient has been requiring daily potassium supplement. I did update patient's about the clinical course. . Past medical history to include: Hypertension, hypothyroid, bipolar disorder, schizophrenia. excessive alcohol use in the past. No smoking. Psychosis, catatonic-like syndrome Social history: Heavy alcohol use in the past. . No smoking. Currently at [facility] Family history: Patient cannot tell Physical examination: VITAL SIGNS: 98.7, 82, 18, 105/63, 95% room air GENERAL: awake, , will speak occasionally. EYES: Pupils equal. Conjunctiva normal. HEENT: External appearance of nose and ears normal, oral cavity dry. NECK: JVD unable to assess; masses not palpable. HEART: First and second heart sounds are normal; no edema. LUNGS: Respiratory rate normal; clear to auscultation. ABDOMEN: Soft, nontender, liver spleen not palpable, no masses palpable. PSYCH: Occasionally speak. DERMATOLOGICAL: area of skin broke down from bullae left arm: Improved MUSCULOSKELETAL:No Clubbing/cyanosis;muscles-grossly intact. NEUROLOGICAL: [Cranial nerves grossly intact; no facial asymmetry, moving limbs. INVESTIGATIONS, reviewed in the clinical context: July 01: Sodium 147 potassium 3.4 creatinine 0.95 glucose 180 June 27: TSH 25.5 free T4 0.35 High-dose dexamethasone suppression test. A.m. cortisol 4 ACTH: 25 Low-dose dexamethasone suppression test. A.m. cortisol 11 White count 10.8 hemoglobin 15.6 platelets 278 sodium 173 potassium 3.8 chloride 134 BUN 57 creatinine 2.38 potassium 10.3 UA showing trace protein EKG tracing personally reviewed by me-normal sinus rhythm. Unclear baseline Previous labs reviewed: March 2021: BUN 12 creatinine 0.9 Assessment and plan: -Severe hypernatremia, from free water deficit: Improved D5W -Given persistent hypernatremia and hypokalemia , assessing for Deweyville's disease Positive low dose 1 mg dexamethasone suppression test. With a morning cortisol level of 11. High dose dexamethasone suppression test: Cortisol level for. ACTH: 25. MRI of the pituitary gland with gadolinium enhancement: Cannot be done as patient was noncooperative Did send the labs from Dr. Everardo lópez dairy equipment mechanic. not conclusive for Deweyville's. Patient will need to have further testing done as outpatient. -Acute metabolic encephalopathy from renal failure and delirium: Better Follow clinically -Schizoaffective disorder, bipolar type. Psychosis: Clozaril 150 mg by mouth daily at bedtime Lamictal 25 mg twice a day Ativan 1 mg by mouth every 8 when necessary Haldol 5 mg by mouth twice a day when necessary -Left arm cellulitis IV Ancef. Changed to by mouth Keflex -Bipolar disorder See above medications -Acute kidney injury, possibly prerenal: Better Continue IV fluids -Diabetes mellitus type 2, on oral hypoglycemic Hold metformin Follow Accu-Cheks -Hypothyroid, uncontrolled Increase Synthroid 112 g a day -Hyperlipidemia Lipitor 40 mg daily at bedtime TriCor 134 mg before supper -Chronic DVT both lower extremity diagnosed on October 19 2020 Eliquis. Currently on Lovenox 100 mg subcu every 12-discontinue. Resume eliquis -Full code Disposition: [facility] Patient Condition at Discharge: Fair Plan - Discharge Summary Discharge Rx Participant: No New Discharge Prescriptions: New metFORMIN HCL [Glucophage] 500 mg PO BID #1 tab Cephalexin [Keflex] 500 mg PO TID #10 cap Melatonin 3 mg PO HS PRN tablet PRN Reason: Insomnia Famotidine [Pepcid] 20 mg PO BID tab Levothyroxine Sodium [Synthroid] 112 mcg PO DAILY@0630 tab Psyllium Husk 100% [Metamucil Packet] 1 packet PO DAILY #1 packet Continue Fenofibrate,Micronized [Fenofibrate] 134 mg PO HS@2100 Acetaminophen Tab [Tylenol] 650 mg PO Q6H PRN PRN Reason: Fever And/ Or Pain bisacodyL [Dulcolax] 10 mg RECTAL DAILY PRN PRN Reason: Constipation Bisacodyl 10 mg PO Q48H PRN PRN Reason: Constipation House Supplement 120 ml PO TID@0900,1300,2100 Nettie-3 Fatty Acids [Nettie-3] 1,000 mg PO BID@0900,2100 lamoTRIgine [LaMICtal] 25 mg PO BID@0900,2100 Folic Acid 1 mg PO DAILY@0900 haloperidoL [Haloperidol] 5 mg PO BID PRN #6 tab PRN Reason: Psychosis Cholecalciferol [Vitamin D3 (25 Mcg = 1000 Iu)] 50 mcg PO DAILY@0900 Apixaban [Eliquis] 5 mg PO BID@09,2099 Atorvastatin Calcium [Lipitor] 40 mg PO HS@2099 Cyanocobalamin (Vitamin B-12) [Vitamin B-12] 1,000 mcg PO DAILY@0900 Isosorbide Mononitrate ER [Imdur] 30 mg PO DAILY@0900 Changed cloZAPine [Clozaril] 150 mg PO HS@2100 #0 Discontinued Levothyroxine Sodium [Synthroid] 88 mcg PO DAILY@0600 LORazepam [Ativan] 1 mg PO Q8H PRN PRN Reason: Anxiety/Agitation polyethylene glycoL 3350 [Miralax] 17 gm PO DAILY@0900 Haldol Solution 5mg/Ml 5 mg IV Q12H PRN PRN Reason: Psychosis metFORMIN HCL [Glucophage] 1,000 mg PO DAILY@1700 Discharge Medication List Cholecalciferol [Vitamin D3 (25 Mcg = 1000 Iu)] 50 mcg PO DAILY@0900 10/10/20 [History] Acetaminophen Tab [Tylenol] 650 mg PO Q6H PRN 03/14/21 [History] Apixaban [Eliquis] 5 mg PO BID@0900,209903/14/21 [History] Atorvastatin Calcium [Lipitor] 40 mg PO HS@209903/14/21 [History] Fenofibrate,Micronized [Fenofibrate] 134 mg PO HS@209903/14/21 [History] Bisacodyl 10 mg PO Q48H PRN 06/14/21 [History] Cyanocobalamin (Vitamin B-12) [Vitamin B-12] 1,000 mcg PO DAILY@0906/14/21 [History] Folic Acid 1 mg PO DAILY@0906/14/21 [History] House Supplement 120 ml PO TID@0900,1300,209906/14/21 [History] Isosorbide Mononitrate ER [Imdur] 30 mg PO DAILY@0900 06/14/21 [History] Nettie-3 Fatty Acids [Nettie-3] 1,000 mg PO BID@0900,209906/14/21 [History] bisacodyL [Dulcolax] 10 mg RECTAL DAILY PRN 06/14/21 [History] lamoTRIgine [LaMICtal] 25 mg PO BID@0900,2100 06/14/21 [History] Cephalexin [Keflex] 500 mg PO TID #10 cap 07/01/21 [Rx] Famotidine [Pepcid] 20 mg PO BID tab 07/01/21 [Rx] Levothyroxine Sodium [Synthroid] 112 mcg PO DAILY@0630 tab 07/01/21 [Rx] Melatonin 3 mg PO HS PRN tablet 07/01/21 [Rx] Psyllium Husk 100% [Metamucil Packet] 1 packet PO DAILY #1 packet 07/01/21 [Rx] cloZAPine [Clozaril] 150 mg PO HS@2100 #0 07/01/21 [Rx] haloperidoL [Haloperidol] 5 mg PO BID PRN #6 tab 07/01/21 [Rx] metFORMIN HCL [Glucophage] 500 mg PO BID #1 tab 07/01/21 [Rx] Follow up Appointment(s)/Referral(s): psychiatristdr [Other] - 1 Week Giuseppe Saenz MD [Primary Care Provider] - 1-2 days Kylah López MD [STAFF PHYSICIAN] - 1 Week (possible cushings)
[2021-07-01 12:15] LABS: Glucose,Whole Blood 159 mg/dL (75-99)
[2021-07-01 12:29] VITALS: BP 111/64; PULSE 85; RESP 17; TEMP 98.1
== END 2021-07-01 15:45 | DRG 640 ==
LOC: EC 16:06 → EEVIPCON 17:21 → 3SCARD 17:21 → 5NMEDONC 06-22 22:01
PROVIDERS: ADMIT Hospitalist; ATTEND Hospitalist
PROC: 05HF33Z Insertion of Infusion Device into Left Cephalic Vein, Percutaneous Approach (ICD-10-PCS; principal; 2021-06-21 14:55)
DX: E87.0 Hyperosmolality and hypernatremia (principal); G93.41 Metabolic encephalopathy; N17.9 Acute kidney failure, unspecified; L03.114 Cellulitis of left upper limb; E24.9 Cushing's syndrome, unspecified; E03.9 Hypothyroidism, unspecified; E11.9 Type 2 diabetes mellitus without complications; E78.5 Hyperlipidemia, unspecified; E86.0 Dehydration; Z20.822 Contact with and (suspected) exposure to COVID-19; E87.6 Hypokalemia; F25.0 Schizoaffective disorder, bipolar type; G47.00 Insomnia, unspecified; I10 Essential (primary) hypertension; K59.00 Constipation, unspecified; Z79.01 Long term (current) use of anticoagulants; Z79.84 Long term (current) use of oral hypoglycemic drugs; Z79.890 Hormone replacement therapy; Z79.899 Other long term (current) drug therapy; Z82.49 Family history of ischemic heart disease and other diseases of the circulatory system; Z87.891 Personal history of nicotine dependence
CPT/HCPCS: 36410; 36415; 76937; 80048; 80053; 81003; 82024; 82533; 83605; 83735; 83930; 84132; 84439; 84443; 85025; 87635; 93005; 99285

== ENCOUNTER 2021-11-06 16:04 | Inpatient (IN) | payer MEDICARE, OTHER ==
[2021-11-06] MEDS ORDERED: LORazepam 2 MG/ML INJ IV STA ×3 (17:01→19:17)
--- NOTE | 2021-11-06 17:40 | ED ---
General Adult HPI - General Chief complaint: Altered Mental Status Stated complaint: AMS Time Seen by Provider: 11/06/21 16:20 Source: patient, EMS, RN notes reviewed, old records reviewed Mode of arrival: EMS Limitations: language barrier, altered mental status - History of Present Illness Initial comments: This is a 50-year-old female who was sent to us by [facility]. Patient has a history of schizophrenia she also had COVID-19 days ago and they worked her up at that facility and she was requiring oxygen because her room air oxygen was at 88%. Patient had bilateral pneumonia according to the affected with a white count so started the patient on Levaquin he also felt as though she was dehydrated and that she needed a psych consult but needed to be medically admitted for the pneumonia. - Related Data Home Medications Medication Instructions Recorded Confirmed Cholecalciferol [Vitamin D3 (25 50 mcg PO DIRECTED 10/10/20 11/06/21 Mcg = 1000 Iu)] Acetaminophen Tab [Tylenol] 650 mg PO Q6H PRN 03/14/21 11/06/21 Apixaban [Eliquis] 5 mg PO DAILY@0900 03/14/21 11/06/21 Atorvastatin Calcium [Lipitor] 40 mg PO HS@209903/14/21 11/06/21 Fenofibrate,Micronized 134 mg PO HS@209903/14/21 11/06/21 [Fenofibrate] Isosorbide Mononitrate ER [Imdur] 30 mg PO DAILY@0900 06/14/21 11/06/21 bisacodyL [Dulcolax] 10 mg RECTAL DAILY PRN 06/14/21 11/06/21 lamoTRIgine [LaMICtal] 25 mg PO BID@0900,209906/14/21 11/06/21 Albuterol Sulfate [Albuterol 2 puff PO RT-QID 11/06/21 11/06/21 Sulfate Hfa] Apixaban [Eliquis] 5 mg PO DIRECTED 11/06/21 11/06/21 Ascorbic Acid [Vitamin C] 500 mg PO BID@0900,209911/06/21 11/06/21 Aspirin EC [Ecotrin Low Dose] 81 mg PO DAILY@0900 11/06/21 11/06/21 Budesonide [Pulmicort Flexhaler] 1 puff INHALATION RT-DAILY 11/06/21 11/06/21 Budesonide [Pulmicort Flexhaler] 2 puff INHALATION DIRECTED 11/06/21 11/06/21 Cholecalciferol [Vitamin D3 (125 125 mcg PO DAILY@0900 11/06/21 11/06/21 Mcg = 5000 Iu)] Famotidine [Pepcid] 20 mg PO BID@0900,2100 11/06/21 11/06/21 LORazepam [Ativan] 1 mg PO Q8H PRN 11/06/21 11/06/21 Levothyroxine Sodium [Synthroid] 100 mcg PO DAILY@0600 11/06/21 11/06/21 Magnesium Hydroxide [Milk of 7,200 mg PO Q48H PRN 11/06/21 11/06/21 Magnesia Concentrate] Nirmatrelvir/Ritonavir [Paxlovid 3 tab PO BID@0900,1700 11/06/21 11/06/21 2X150 mg-100 mg (Eua)] Potassium Chloride ER [K-Dur 20] 20 meq PO DAILY@0900 11/06/21 11/06/21 Psyllium Husk 100% [Metamucil 1 tbsp PO DAILY@0900 11/06/21 11/06/21 Packet] Zinc Gluconate [Zinc] 50 mg PO DAILY@0900 11/06/21 11/06/21 cloZAPine [Clozapine] 200 mg PO TID@0900,1300,209911/06/21 11/06/21 metFORMIN HCL [Glucophage] 500 mg PO BID@0900,2100 11/06/21 11/06/21 Allergies Allergy/AdvReac Type Severity Reaction Status Date / Time cefuroxime axetil Allergy Rash/Hives Verified 11/06/21 17:28 [From Ceftin] Penicillins Allergy Rash/Hives Verified 11/06/21 17:28 thioridazine AdvReac muscle Verified 11/06/21 17:28 stiffness Review of Systems ROS Statement: Those systems with pertinent positive or pertinent negative responses have been documented in the HPI. ROS Other: All systems not noted in ROS Statement are negative. Past Medical History Past Medical History: Diabetes Mellitus, Hypertension, Thyroid Disorder Additional Past Medical History / Comment(s): hx obtained from . Pt unable to answer History of Any Multi-Drug Resistant Organisms: None Reported Past Surgical History: Appendectomy, Cholecystectomy, Tubal Ligation Additional Past Surgical History / Comment(s): tubal 03/2003 Past Anesthesia/Blood Transfusion Reactions: No Reported Reaction Past Psychological History: Bipolar, Depression Smoking Status: Former smoker Past Alcohol Use History: Heavy Past Drug Use History: Marijuana - Past Family History Mother Family Medical History: Cancer Father Family Medical History: Myocardial Infarction ([place]) General Exam - General Exam Comments Initial Comments: GENERAL: Patient is well-developed and well-nourished. Patient is nontoxic and well- hydrated and patient appears to be very agitated. ENT: Neck is soft and supple. No significant lymphadenopathy is noted. Oropharynx is clear. Moist mucous membranes. Neck has full range of motion without elicit ing any pain. EYES: The sclera were anicteric and conjunctiva were pink and moist. Extraocular mov ements were intact and pupils were equal round and reactive to light. Eyelids were unremarkable. PULMONARY: Unlabored respirations. Good breath sounds bilaterally. No audible rales rhonchi or wheezing was noted. CARDIOVASCULAR: There is a regular rate and rhythm without any murmurs gallops or rubs. ABDOMEN: Soft and nontender with normal bowel sounds. SKIN: Skin is clear with no lesions or rashes and otherwise unremarkable. NEUROLOGIC: Patient is alert but not oriented at all and she is thrashing in bed moving all 4 extremities. Difficult to do any further neurologic assessment MUSCULOSKELETAL: Normal extremities with adequate strength and full range of motion. LYMPHATICS: No significant lymphadenopathy is noted PSYCHIATRIC: unable to evaluate Limitations: language barrier, altered mental status Course Vital Signs 11/06/21 11/06/21 16:08 18:56 Temperature 98.5 F Pulse Rate 76 98 Respiratory 20 18 Rate Blood Pressure 122/82 124/89 O2 Sat by Pulse 95 92 L Oximetry Medical Decision Making - Medical Decision Making Patient's lab work shows hypernatremia. Patient is agitated the whole time she is here I gave her Ativan to calm her down and it did work momentarily. Chest x-ray showed bilateral infiltrates I spoke with Dr. Carrasco he agreed to admit the patient admitted the patient wrote admitting orders. Dr. Carrasco requested 0.45 normal saline - Lab Data Result diagrams: 11/06/21 17:35 11/06/21 17:35 Lab Results 11/06/21 11/06/21 11/06/21 Range/Units 17:35 17:35 18:20 WBC 11.5 H (3.8-10.6) k/uL RBC 4.78 (3.80-5.40) m/uL Hgb 12.6 (11.4-16.0) gm/dL Hct 41.3 (34.0-46.0) % MCV 86.5 (80.0-100.0) fL MCH 26.4 (25.0-35.0) pg MCHC 30.5 L (31.0-37.0) g/dL RDW 14.9 (11.5-15.5) % Plt Count 321 (150-450) k/uL MPV 8.7 Neutrophils % 93 % Lymphocytes % 4 % Monocytes % 2 % Eosinophils % 0 % Basophils % 0 % Neutrophils # 10.7 H (1.3-7.7) k/uL Lymphocytes # 0.4 L (1.0-4.8) k/uL Monocytes # 0.3 (0-1.0) k/uL Eosinophils # 0.0 (0-0.7) k/uL Basophils # 0.0 (0-0.2) k/uL Hypochromasia Marked Sodium 157 H (137-145) mmol/L Potassium 4.3 (3.5-5.1) mmol/L Chloride 124 H (98-107) mmol/L Carbon Dioxide 19 L (22-30) mmol/L Anion Gap 14 mmol/L BUN 50 H (7-17) mg/dL Creatinine 2.04 H (0.52-1.04) mg/dL Est GFR (CKD-EPI)AfAm 32 (>60 ml/min/1.73 sqM) Est GFR (CKD-EPI)NonAf 27 (>60 ml/min/1.73 sqM) Glucose 131 H (74-99) mg/dL Calcium 9.2 (8.4-10.2) mg/dL Total Bilirubin 0.5 (0.2-1.3) mg/dL AST 34 (14-36) U/L ALT 22 (4-34) U/L Alkaline Phosphatase 59 (38-126) U/L Total Protein 6.6 (6.3-8.2) g/dL Albumin 3.6 (3.5-5.0) g/dL Urine Color Yellow Urine Appearance Cloudy H (Clear) Urine pH 7.0 (5.0-8.0) Ur Specific [place] 1.017 (1.001-1.035) Urine Protein 1+ H (Negative) Urine Glucose (UA) Negative (Negative) Urine Ketones Trace H (Negative) Urine Blood Trace H (Negative) Urine Nitrite Negative (Negative) Urine Bilirubin Negative (Negative) Urine Urobilinogen 2.0 (<2.0) mg/dL Ur Leukocyte Esterase Small H (Negative) Urine RBC 7 H (0-5) /hpf Urine WBC 9 H (0-5) /hpf Ur Squamous Epith Cells 1 (0-4) /hpf Urine Bacteria Many H (None) /hpf Disposition Clinical Impression: Acute psychosis, Pneumonia, Hypernatremia, History of schizophrenia, Acute renal failure Disposition: ADMITTED IP TO THIS [facility] Time of Disposition: 19:10
[2021-11-06 17:58] LABS: Basophils % (A) 0 %; Eosinophils % (A) 0 %; HCT 41.3 % (34.0-46.0); HGB 12.6 gm/dL (11.4-16.0); Hypochromasia Marked; Lymphocytes # (A) 0.4 k/uL (1.0-4.8); Lymphocytes % (A) 4 %; MCH 26.4 pg (25.0-35.0); MCHC 30.5 g/dL (31.0-37.0); MCV 86.5 fL (80.0-100.0); Mean Platelet Volume 8.7; Monocytes # (A) 0.3 k/uL (0-1.0); Monocytes % (A) 2 %; Neutrophils # (A) 10.7 k/uL (1.3-7.7); Neutrophils % (A) 93 %; Platelet Count 321 k/uL (150-450); RBC 4.78 m/uL (3.80-5.40); RDW 14.9 % (11.5-15.5); WBC 11.5 k/uL (3.8-10.6)
[2021-11-06 18:14] LABS: Albumin 3.6 g/dL (3.5-5.0); Calcium 9.2 mg/dL (8.4-10.2); Potassium 4.3 mmol/L (3.5-5.1); Total Bilirubin 0.5 mg/dL (0.2-1.3); Total Protein 6.6 g/dL (6.3-8.2)
[2021-11-06 19:03] LABS: Appearance,Urine Cloudy (Clear); Bacteria,Urine Many /hpf; Bilirubin,Urine Negative (Negative); Blood,Urine Trace (Negative); Color,Urine Yellow; Glucose,Urine (UA) Negative (Negative); Ketones,Urine Trace (Negative); Leukocyte Esterase,Urine Small (Negative); Nitrite,Urine Negative (Negative); Protein,Urine 1+ (Negative); RBC,Urine 7 /hpf (0-5); Specific Gravity,Urine 1.017 (1.001-1.035); Squamous Epithelial Cell,Urine 1 /hpf (0-4); WBC,Urine 9 /hpf (0-5)
--- NOTE | 2021-11-06 19:23 | XR ---
EXAMINATION TYPE: XR chest 1V portable DATE OF EXAM: 11/06/2021 COMPARISON: 03/14/2021 HISTORY: Short of breath TECHNIQUE: FINDINGS: There is some mild patchy infiltrate in the upper lung welch laterally. There is coarsenin g of the right lower lobe markings. No pleural effusion. No heart failure. There are chest leads. IMPRESSION: There is evidence of some bilateral patchy pneumonia and atelectasis in the mid and upper lung welch that is a change compared to old exam. No heart failure.
[2021-11-06] MEDS ORDERED: PNEUMONIA PROTOCOL UTILIZED 1 EACH MISC PO PRN (19:45)
[2021-11-06] MEDS ORDERED: SODIUM CHLORIDE 0.45% 1,000 ML IV SCH (20:45)
[2021-11-06] MEDS ORDERED: LEVOFLOXACIN 750MG-D5W PMX 750 MG in DEXTROSE/WATER 1 150ML.BAG IVPB SCH (21:00)
[2021-11-06 22:24] LABS: Glucose,Whole Blood 118 mg/dL (70-110)
[2021-11-06] MEDS ORDERED: MORPHINE SULFATE 4 MG/ML SYRINGE IVP STA (22:29)
[2021-11-06] MEDS ORDERED: ALBUTEROL NEBULIZED 2.5 MG/3 ML INHALATION STA (22:29)
[2021-11-07] MEDS ORDERED: LORazepam 2 MG/ML INJ IV STA (02:29)
--- NOTE | 2021-11-07 02:55 | XR ---
EXAM: XR Chest, 1 View CLINICAL HISTORY: ITS.REASON XR Reason: shortness of breathe TECHNIQUE: Frontal view of the chest. COMPARISON: 11/06/211848 FINDINGS: Lungs: No significant abnormality. No consolidation. Pleural space: No significant abnormality. No pneumothorax. Heart: Stable cardiomediastinal silhouette. Mediastinum: See above. Bones/joints: No acute osseous abnormality. Other findings: Persistent patchy bilateral opacities. IMPRESSION: No significant interval change since prior exam.
[2021-11-07 04:07] LABS: Glucose,Whole Blood 81 mg/dL (70-110)
[2021-11-07] MEDS ORDERED: KETAMINE 50 MG/ML 10 ML VIAL IV ONE (05:12)
--- NOTE | 2021-11-07 06:02 | P.CNPUL ---
History of Present Illness Consult date: 11/07/21 Requesting physician: Dakota Carrasco Reason for consult: dyspnea, hypoxemia, pneumonia, abnormal CXR/CT Chief complaint: Mental status changes, pneumonia. History of present illness: Pulmonary consult dated 11/07/2021. 50-year-old female, who is brought in by the [facility] emergency services. She apparently resides at [facility] in that area. She apparently has a history of schizophrenia, as well as a history of recent infection with coronavirus. The patient was brought in because of mental status changes, and also low saturations. Apparently the patient was evaluated there and thought to have pneumonia. The patient was treated with Levaquin here. Currently, she seen in the emergency room, room 11. She is on 15 L high flow oxygen. She's getting saline at 75 mL an hour. I did have the opportunity to speak to the patient's , name Art. He was able to provide some history. [facility], but is unable to prepare food for herself. Her mental status varies hour to hour and day today according to him. The patient herself can give me no history. She sees been here in the emergency department, she's been moaning and groaning. Her chest x-ray shows bilateral patchy infiltrates. A blood gas was done and showed a pO2 of 89, pCO2 35, and pH is 7.332. She apparently has a history of diabetes, hypertension, hyperlipidemia, and hypothyroidism. White count 11.5, hemoglobin 12.6, hematocrit 41.3, with a normal platelet count. Sodium 157, potassium 4.3, chlorides 124, CO2 19, anion gap 14, BUN 50, creatinine 2.04. Her lactic acid was 1.2. Pro-calcitonin level is pending. Urine is yellow and cloudy. There is 1+ protein. Trace blood. Small positive leukocyte esterase, 7 RBCs, 9 WBCs, and many bacteria. Chest x-ray shows patchy bilateral infiltrates. Review of Systems REVIEW OF SYSTEMS: Unable to obtain any additional history from the patient. CONSTITUTIONAL: [Negative.] NEUROLOGIC: [ Negative.] HEENT: [ Negative.] CARDIAC: [Negative.] PULMONARY: Worsening oxygenation. GI: [Negative.] : [Negative.] RHEUMATOLOGIC: [ Negative.] IMMUNOLOGIC: [ Negative.] ENDOCRINE: [Negative. ] DERMATOLOGIC: [Negative.] Past Medical History Past Medical History: Diabetes Mellitus, Hypertension, Thyroid Disorder Additional Past Medical History / Comment(s): hx obtained from . Pt unable to answer History of Any Multi-Drug Resistant Organisms: None Reported Past Surgical History: Appendectomy, Cholecystectomy, Tubal Ligation Additional Past Surgical History / Comment(s): tubal 03/2003 Past Anesthesia/Blood Transfusion Reactions: No Reported Reaction Past Psychological History: Bipolar, Depression Smoking Status: Former smoker Past Alcohol Use History: Heavy Past Drug Use History: Marijuana - Past Family History Mother Family Medical History: Cancer Father Family Medical History: Myocardial Infarction ([place]) Medications and Allergies Home Medications Medication Instructions Recorded Confirmed Type Cholecalciferol [Vitamin D3 (25 50 mcg PO DIRECTED 10/10/20 11/06/21 History Mcg = 1000 Iu)] Acetaminophen Tab [Tylenol] 650 mg PO Q6H PRN 03/14/21 11/06/21 History Apixaban [Eliquis] 5 mg PO DAILY@0900 03/14/21 11/06/21 History Atorvastatin Calcium [Lipitor] 40 mg PO HS@209903/14/21 11/06/21 History Fenofibrate,Micronized 134 mg PO HS@209903/14/21 11/06/21 History [Fenofibrate] Isosorbide Mononitrate ER [Imdur] 30 mg PO DAILY@0900 06/14/21 11/06/21 History bisacodyL [Dulcolax] 10 mg RECTAL DAILY PRN 06/14/21 11/06/21 History lamoTRIgine [LaMICtal] 25 mg PO BID@0900,209906/14/21 11/06/21 History Albuterol Sulfate [Albuterol 2 puff PO RT-QID 11/06/21 11/06/21 History Sulfate Hfa] Apixaban [Eliquis] 5 mg PO DIRECTED 11/06/21 11/06/21 History Ascorbic Acid [Vitamin C] 500 mg PO BID@0900,209911/06/21 11/06/21 History Aspirin EC [Ecotrin Low Dose] 81 mg PO DAILY@0900 11/06/21 11/06/21 History Budesonide [Pulmicort Flexhaler] 1 puff INHALATION RT-DAILY 11/06/21 11/06/21 History Budesonide [Pulmicort Flexhaler] 2 puff INHALATION DIRECTED 11/06/21 11/06/21 History Cholecalciferol [Vitamin D3 (125 125 mcg PO DAILY@0900 11/06/21 11/06/21 History Mcg = 5000 Iu)] Famotidine [Pepcid] 20 mg PO BID@0900,2100 11/06/21 11/06/21 History LORazepam [Ativan] 1 mg PO Q8H PRN 11/06/21 11/06/21 History Levothyroxine Sodium [Synthroid] 100 mcg PO DAILY@0600 11/06/21 11/06/21 History Magnesium Hydroxide [Milk of 7,200 mg PO Q48H PRN 11/06/21 11/06/21 History Magnesia Concentrate] Nirmatrelvir/Ritonavir [Paxlovid 3 tab PO BID@0900,1700 11/06/21 11/06/21 History 2X150 mg-100 mg (Eua)] Potassium Chloride ER [K-Dur 20] 20 meq PO DAILY@0900 11/06/21 11/06/21 History Psyllium Husk 100% [Metamucil 1 tbsp PO DAILY@0900 11/06/21 11/06/21 History Packet] Zinc Gluconate [Zinc] 50 mg PO DAILY@0900 11/06/21 11/06/21 History cloZAPine [Clozapine] 200 mg PO TID@0900,1300,2100 11/06/21 11/06/21 History metFORMIN HCL [Glucophage] 500 mg PO BID@0900,2100 11/06/21 11/06/21 History Allergies Allergy/AdvReac Type Severity Reaction Status Date / Time cefuroxime axetil Allergy Rash/Hives Verified 11/06/21 17:28 [From Ceftin] Penicillins Allergy Rash/Hives Verified 11/06/21 17:28 thioridazine AdvReac muscle Verified 11/06/21 17:28 stiffness Physical Exam Osteopathic Statement: *. No significant issues noted on an osteopathic structural exam other than those noted in the History and Physical/Consult. Vitals: Vital Signs Temp Pulse Resp BP Pulse Ox 11/07/21 02:45 116 H 24 126/87 90 L 11/06/21 23:39 96 11/06/21 20:00 99 16 123/88 11/06/21 18:56 98 18 124/89 92 L 11/06/21 16:08 98.5 F 76 20 122/82 95 Intake and Output 11/06/21 11/06/21 11/07/21 14:59 22:59 06:59 Other: Weight 95.254 kg Moaning and groaning, lethargic, can give no additional history. High flow nasal cannula in place. HEENT examination is grossly unremarkable. . Neck supple. Full range of motion. No adenopathy thyromegaly or neck vein distention. Cardiovascular examination reveals regular rhythm rate. S1-S2 normal. No S3 or S4. No discernible murmur noted. Heart sounds are distant. Heart rate 116 bpm. Lungs reveal coarse bilateral rhonchi. Breath sounds equal. No crackles. No wheezes. Saturations are 90-95% on 10 L high flow oxygen. Abdomen soft bowel sounds are heard. No masses or tenderness. Extremities are intact. No cyanosis clubbing or edema. Skin is without rash or lesion. Neurologic examination is very difficult to assess. Results - Laboratory Findings CBC and BMP: 11/06/21 17:35 11/06/21 17:35 Abnormal lab findings: Abnormal Labs 11/06/21 11/06/21 11/06/21 17:35 17:35 18:20 WBC 11.5 H MCHC 30.5 L Neutrophils # 10.7 H Lymphocytes # 0.4 L Sodium 157 H Chloride 124 H Carbon Dioxide 19 L BUN 50 H Creatinine 2.04 H Glucose 131 H POC Glucose (mg/dL) Urine Appearance Cloudy H Urine Protein 1+ H Urine Ketones Trace H Urine Blood Trace H Ur Leukocyte Esterase Small H Urine RBC 7 H Urine WBC 9 H Urine Bacteria Many H 11/06/21 22:23 WBC MCHC Neutrophils # Lymphocytes # Sodium Chloride Carbon Dioxide BUN Creatinine Glucose POC Glucose (mg/dL) 118 H Urine Appearance Urine Protein Urine Ketones Urine Blood Ur Leukocyte Esterase Urine RBC Urine WBC Urine Bacteria - Diagnostic Findings Chest x-ray: image reviewed Assessment and Plan Assessment: Acute hypoxemic respiratory failure secondary to bilateral pneumonia. History of recent coronavirus infection. Acute mental status changes, presumably secondary to infection. Hypernatremia. History of hypertension. History of hyperlipidemia. History of diabetes mellitus. History of hypothyroidism. History of schizophrenia. Prior history of tobacco use. History of heavy alcohol use. History of marijuana use. Plan: Plan dated 11/07/2021. The patient's currently receiving Levaquin for her pneumonia. Her saline IV is running at 75 mL an hour. Her IV should be converted to dextrose, at 100 mL an hour. Blood and urine culture should be done if not or ready done. I did speak to the . He gave me a limited information. We spoke briefly about CODE STATUS. I don't have a good sense as to what he or she would want, should her situation declined. She may need admission to the intensive care unit. Labs, x-rays, and medications are reviewed. Prognosis is guarded. Time with Patient: Greater than 30
[2021-11-07] MEDS: DEXTROSE 5% IN WATER 1,000 ML IV SCH ×2 (07:00→16:39)
[2021-11-07] MEDS: LORazepam 2 MG/ML INJ IV PRN ×2 (08:05→15:55)
[2021-11-07] MEDS ORDERED: FUROSEMIDE 10 MG/ML 4 ML VIAL IV STA (08:17)
[2021-11-07 08:29] LABS: HCT 39.1 % (34.0-46.0); Hypochromasia Marked; MCHC 30.7 g/dL (31.0-37.0); MCV 87.8 fL (80.0-100.0); Mean Platelet Volume 8.4; Platelet Count 345 k/uL (150-450); RBC 4.45 m/uL (3.80-5.40); RDW 15.1 % (11.5-15.5); WBC 20.7 k/uL (3.8-10.6)
[2021-11-07 08:42] LABS: Albumin 3.5 g/dL (3.5-5.0); Calcium 9.3 mg/dL (8.4-10.2); Magnesium 2.7 mg/dL (1.6-2.3); Potassium 4.2 mmol/L (3.5-5.1); Total Bilirubin 0.6 mg/dL (0.2-1.3); Total Protein 6.4 g/dL (6.3-8.2)
[2021-11-07 09:21] LABS: Glucose,Whole Blood 101 mg/dL (70-110)
[2021-11-07 09:26] LABS: ABG Base Excess -8.7 mmol/L; ABG HCO3 17 mmol/L (21-25); ABG Oxygen Saturation 88.3 % (94-97); ABG PCO2 31 mmHg (35-45); ABG PH 7.35 (7.35-7.45); ABG TCO2 18 mmol/L (19-24); Allen Test Performed? Yes
[2021-11-07 09:28] LABS: ABG PO2 56 mmHg (83-108)
[2021-11-07] MEDS ORDERED: ACETAMINOPHEN IV (For NPO) 1,000 MG in EMPTY BAG 1 BAG IVPB STA (09:35)
[2021-11-07] MEDS: DEXMEDETOMIDINE/0.9% NACL(PMX) 400 MCG in EMPTY BAG 1 BAG IV SCH ×4 (09:38→22:00)
[2021-11-07] MEDS ORDERED: SODIUM BICARB 8.4% 50 ML SYR (1 MEQ/ML) IV STA (11:20)
--- NOTE | 2021-11-07 11:36 | P.NPCON ---
History of Present Illness - Reason for Consult acute renal failure, hypernatremia - History of Present Illness Reason for consultation: Acute kidney injury and hypernatremia History of present illness: Patient is a 50-year-old female seen in renal consultation for acute kidney injury and hypernatremia. Patient's baseline creatinine is near 1 and is 2.13 today. Patient's sodium was 157 on admission and is up to 162 this morning. Patient was receiving half normal saline and was switched over to D5 W at 100 mL an hour by the continuous pickling line pickler this morning. Patient was just placed on a BiPAP. She did test positive for COVID-19. She received 1 dose of IV Lasix this admission. Patient is nonoliguric. Wiseman catheter has been placed. Blood pressures have been stable however readings have been as low as 95/63 this admission. She was also on metformin which is now held. I don't see any nonsteroidals or diuretics. Vital signs are stable. General: Resting in bed. On BiPAP. No acute distress. HEENT: On BiPAP. LUNGS: Breath sounds decreased. HEART: Tachycardic. ABDOMEN: Soft, no distention. EXTREMITITES: No edema. Past Medical History Past Medical History: Diabetes Mellitus, Hypertension, Thyroid Disorder Additional Past Medical History / Comment(s): hx obtained from . Pt unable to answer History of Any Multi-Drug Resistant Organisms: None Reported Past Surgical History: Appendectomy, Cholecystectomy, Tubal Ligation Additional Past Surgical History / Comment(s): tubal 03/2003 Past Anesthesia/Blood Transfusion Reactions: No Reported Reaction Past Psychological History: Bipolar, Depression Smoking Status: Former smoker Past Alcohol Use History: Heavy Past Drug Use History: Marijuana - Past Family History Mother Family Medical History: Cancer Father Family Medical History: Myocardial Infarction ([place]) Medications and Allergies Home Medications Medication Instructions Recorded Confirmed Type Cholecalciferol [Vitamin D3 (25 50 mcg PO DIRECTED 10/10/20 11/06/21 History Mcg = 1000 Iu)] Acetaminophen Tab [Tylenol] 650 mg PO Q6H PRN 03/14/21 11/06/21 History Apixaban [Eliquis] 5 mg PO DAILY@0900 03/14/21 11/06/21 History Atorvastatin Calcium [Lipitor] 40 mg PO HS@2100 03/14/21 11/06/21 History Fenofibrate,Micronized 134 mg PO HS@209903/14/21 11/06/21 History [Fenofibrate] Isosorbide Mononitrate ER [Imdur] 30 mg PO DAILY@0906/14/21 11/06/21 History bisacodyL [Dulcolax] 10 mg RECTAL DAILY PRN 06/14/21 11/06/21 History lamoTRIgine [LaMICtal] 25 mg PO BID@0900,209906/14/21 11/06/21 History Albuterol Sulfate [Albuterol 2 puff PO RT-QID 11/06/21 11/06/21 History Sulfate Hfa] Apixaban [Eliquis] 5 mg PO DIRECTED 11/06/21 11/06/21 History Ascorbic Acid [Vitamin C] 500 mg PO BID@0900,209911/06/21 11/06/21 History Aspirin EC [Ecotrin Low Dose] 81 mg PO DAILY@0911/06/21 11/06/21 History Budesonide [Pulmicort Flexhaler] 1 puff INHALATION RT-DAILY 11/06/21 11/06/21 History Budesonide [Pulmicort Flexhaler] 2 puff INHALATION DIRECTED 11/06/21 11/06/21 History Cholecalciferol [Vitamin D3 (125 125 mcg PO DAILY@89911/06/21 11/06/21 History Mcg = 5000 Iu)] Famotidine [Pepcid] 20 mg PO BID@0900,209911/06/21 11/06/21 History LORazepam [Ativan] 1 mg PO Q8H PRN 11/06/21 11/06/21 History Levothyroxine Sodium [Synthroid] 100 mcg PO DAILY@59911/06/21 11/06/21 History Magnesium Hydroxide [Milk of 7,200 mg PO Q48H PRN 11/06/21 11/06/21 History Magnesia Concentrate] Nirmatrelvir/Ritonavir [Paxlovid 3 tab PO BID@0900,1700 11/06/21 11/06/21 History 2X150 mg-100 mg (Eua)] Potassium Chloride ER [K-Dur 20] 20 meq PO DAILY@0900 11/06/21 11/06/21 History Psyllium Husk 100% [Metamucil 1 tbsp PO DAILY@0900 11/06/21 11/06/21 History Packet] Zinc Gluconate [Zinc] 50 mg PO DAILY@0900 11/06/21 11/06/21 History cloZAPine [Clozapine] 200 mg PO TID@0900,1300,209911/06/21 11/06/21 History metFORMIN HCL [Glucophage] 500 mg PO BID@0900,2100 11/06/21 11/06/21 History Allergies Allergy/AdvReac Type Severity Reaction Status Date / Time cefuroxime axetil Allergy Rash/Hives Verified 11/06/21 17:28 [From Ceftin] Penicillins Allergy Rash/Hives Verified 11/06/21 17:28 thioridazine AdvReac muscle Verified 11/06/21 17:28 stiffness Physical Exam Vitals: Vital Signs Temp Pulse Resp BP Pulse Ox FiO2 11/07/21 11:10 95 35 H 100/67 97 11/07/21 11:00 98 39 H 95/63 97 11/07/21 10:50 99 38 H 95/63 98 11/07/21 10:40 102 H 39 H 103/71 98 11/07/21 10:30 108 H 43 H 104/49 98 11/07/21 10:20 109 H 49 H 104/49 97 11/07/21 10:10 109 H 47 H 118/67 94 L 11/07/21 10:00 114 H 46 H 112/82 95 100 11/07/21 09:50 114 H 50 H 112/82 94 L 11/07/21 09:48 100 11/07/21 09:43 100 11/07/21 09:40 122 H 49 H 86 L 11/07/21 09:30 43 H 99/75 88 L 11/07/21 09:20 100.5 F H 121 H 46 H 122/83 88 L 11/07/21 05:15 102.5 F H 122 H 24 134/87 90 L 11/07/21 03:00 120 H 24 123/84 92 L 11/07/21 02:45 116 H 24 126/87 90 L 11/06/21 23:39 96 11/06/21 22:15 107 H 24 138/103 94 L 11/06/21 21:45 24 87 L 11/06/21 20:00 99 16 123/88 11/06/21 18:56 98 18 124/89 92 L 11/06/21 16:08 98.5 F 76 20 122/82 95 Intake and Output 11/06/21 11/07/21 11/07/21 22:59 06:59 14:59 Intake Total 191.590 Output Total 700 Balance -508.410 Intake: IV 175 ACETAMINOPHEN IV (For NPO 100 ) 1,000 mg In Empty Bag 1 bag @ 400 mls/hr IVPB ONCE STA Rx#:[id number] Dextrose 5% in Water 1, 75 000 ml @ 100 mls/hr IV . Q10H DENISSE Rx#:[id number] Intake, IV Titration 16.590 Amount Dexmedetomidine/0.9% NaCl 16.590 (Pmx) 400 mcg In Empty Bag 1 bag @ 0.2 MCG/KG/HR 4.763 mls/hr IV .Q21H DENISSE Rx#:[id number] Output: Urine 700 Other: Voiding Method Indwelling Catheter Weight 95.254 kg Results - Lab Results Most recent lab results ABG pH 7.35 (7.35-7.45) 11/07/21 09:24 ABG pCO2 31 mmHg (35-45) L 11/07/21 09:24 ABG pO2 56 mmHg (83-108) L* 11/07/21 09:24 ABG HCO3 17 mmol/L (21-25) L 11/07/21 09:24 ABG O2 Saturation 88.3 % (94-97) L 11/07/21 09:24 Calcium 9.3 mg/dL (8.4-10.2) 11/07/21 08:20 Magnesium 2.7 mg/dL (1.6-2.3) H 11/07/21 08:20 11/07/21 08:20 11/07/21 08:20 Assessment and Plan Plan: Assessment: 1. Acute kidney injury secondary to ATN secondary to hypotension/sepsis. Bas addy creatinine near 1 and is 2.13 today. 2. Hypernatremia from lack of oral water intake. 3. Metabolic acidosis secondary to acute kidney injury and metformin. 4. Acute hypoxic respiratory failure currently on BiPAP. 5. COVID-19 pneumonia. Plan: Maintain D5W at 100 mL an hour. 2 A sodium bicarbonate IV push now. Add oral sodium bicarbonate. Repeat BMP at 5 PM. Avoid nephrotoxins. Continue to monitor renal function and urine output. Check renal ultrasound. Thank you for the consultation. I will continue to follow the patient with you during her hospital stay.
--- NOTE | 2021-11-07 11:41 | P.CNNES ---
History of Present Illness Consult date: 11/07/21 Requesting physician: Dakota Carrasco Reason for Consult: altered mental status History of Present Illness: This is a 50-year-old woman with history of seizure, diabetes mellitus, hypothyroidism, schizoaffective disorder who was transferred from [facility] to our facility for escalation of care. History is obtained from medical record as well as the patient nurse. Patient resides at [facility]. According to the nurse, she spoke with the patient's and is seems the patient had a COVID-19 infection about a week ago and was being treated but because the patient's mentation was worsening and having low oxygen saturation she was taken to [facility]. She had a CT of the head at outside facility and was reported as a no acute changes. Neurology is consulted for altered mental status. In our ED the patient received a cortisone nurse at least 4 mg of Ativan, she received morphine and currently she is on IV Precedex because the patient is agitated. Of note the patient is known to our neurology team in which patient was evaluated and of February to the beginning of March 2021 for seizure. It seems that the patient had possible seizure with questionable generalized tonic- clonic activity on 03/15/2021 lasting 30 seconds and that was witnessed by the psychiatrist she had a routine EEG as well as to have EEG which were negative for seizure or epileptiform activity. At that time she stated that she had a seizure about 57 years ago and it was a staring spell according to the . She had MRI of the brain which was negative for any stroke. Was limited by mot ion artifact. And the patient was only on Lamictal 25 motor twice a day and recommended the titration by psychiatry team. Patient was notified to follow up with neurology for further workup. Please refer to our previous notes for further details. Some of the work-up in our facility during this visit consisted of: Patient had a recent COVID-19 infection which was positive. Her sodium on initial presentation R facilities 157 and currently is 162. Her BUN is 58 currently and creatinine is 2.13 which is trending up. Her initial white blood cells 11.5 and a repeat is 1.7. Initial temperature is 98.5 and was spiking fevers highest of 102.5 most recent is 100.5. Her oxygen saturation was as low as 86% and currently is on nonrebreather Urinalysis is leukocyte Estrace a small, urine white blood cells 9, cloudy. Review of Systems Review of system is limited but the prone positive and negative as per HPI. Past Medical History Past Medical History: Diabetes Mellitus, Hypertension, Thyroid Disorder Additional Past Medical History / Comment(s): hx obtained from . Pt unable to answer History of Any Multi-Drug Resistant Organisms: None Reported Past Surgical History: Appendectomy, Cholecystectomy, Tubal Ligation Additional Past Surgical History / Comment(s): tubal 03/2003 Past Anesthesia/Blood Transfusion Reactions: No Reported Reaction Past Psychological History: Bipolar, Depression Smoking Status: Former smoker Past Alcohol Use History: Heavy Past Drug Use History: Marijuana - Past Family History Mother Family Medical History: Cancer Father Family Medical History: Myocardial Infarction ([place]) Medications and Allergies Home Medications Medication Instructions Recorded Confirmed Type Cholecalciferol [Vitamin D3 (25 50 mcg PO DIRECTED 10/10/20 11/06/21 History Mcg = 1000 Iu)] Acetaminophen Tab [Tylenol] 650 mg PO Q6H PRN 03/14/21 11/06/21 History Apixaban [Eliquis] 5 mg PO DAILY@0900 03/14/21 11/06/21 History Atorvastatin Calcium [Lipitor] 40 mg PO HS@209903/14/21 11/06/21 History Fenofibrate,Micronized 134 mg PO HS@209903/14/21 11/06/21 History [Fenofibrate] Isosorbide Mononitrate ER [Imdur] 30 mg PO DAILY@0900 06/14/21 11/06/21 History bisacodyL [Dulcolax] 10 mg RECTAL DAILY PRN 06/14/21 11/06/21 History lamoTRIgine [LaMICtal] 25 mg PO BID@0900,209906/14/21 11/06/21 History Albuterol Sulfate [Albuterol 2 puff PO RT-QID 11/06/21 11/06/21 History Sulfate Hfa] Apixaban [Eliquis] 5 mg PO DIRECTED 11/06/21 11/06/21 History Ascorbic Acid [Vitamin C] 500 mg PO BID@0900,209911/06/21 11/06/21 History Aspirin EC [Ecotrin Low Dose] 81 mg PO DAILY@0900 11/06/21 11/06/21 History Budesonide [Pulmicort Flexhaler] 1 puff INHALATION RT-DAILY 11/06/21 11/06/21 History Budesonide [Pulmicort Flexhaler] 2 puff INHALATION DIRECTED 11/06/21 11/06/21 History Cholecalciferol [Vitamin D3 (125 125 mcg PO DAILY@0900 11/06/21 11/06/21 History Mcg = 5000 Iu)] Famotidine [Pepcid] 20 mg PO BID@0900,209911/06/21 11/06/21 History LORazepam [Ativan] 1 mg PO Q8H PRN 11/06/21 11/06/21 History Levothyroxine Sodium [Synthroid] 100 mcg PO DAILY@59911/06/21 11/06/21 History Magnesium Hydroxide [Milk of 7,200 mg PO Q48H PRN 11/06/21 11/06/21 History Magnesia Concentrate] Nirmatrelvir/Ritonavir [Paxlovid 3 tab PO BID@0900,1700 11/06/21 11/06/21 History 2X150 mg-100 mg (Eua)] Potassium Chloride ER [K-Dur 20] 20 meq PO DAILY@0900 11/06/21 11/06/21 History Psyllium Husk 100% [Metamucil 1 tbsp PO DAILY@0911/06/21 11/06/21 History Packet] Zinc Gluconate [Zinc] 50 mg PO DAILY@0900 11/06/21 11/06/21 History cloZAPine [Clozapine] 200 mg PO TID@0900,1300,209911/06/21 11/06/21 History metFORMIN HCL [Glucophage] 500 mg PO BID@0900,2100 11/06/21 11/06/21 History Allergies Allergy/AdvReac Type Severity Reaction Status Date / Time cefuroxime axetil Allergy Rash/Hives Verified 11/06/21 17:28 [From Ceftin] Penicillins Allergy Rash/Hives Verified 11/06/21 17:28 thioridazine AdvReac muscle Verified 11/06/21 17:28 stiffness Physical Examination - Vital Signs Vital Signs: Vital Signs Temp Pulse Resp BP Pulse Ox FiO2 11/07/21 10:00 114 H 46 H 112/82 95 100 11/07/21 09:50 114 H 50 H 112/82 94 L 11/07/21 09:48 100 11/07/21 09:43 100 11/07/21 09:40 122 H 49 H 86 L 11/07/21 09:30 43 H 99/75 88 L 11/07/21 09:20 100.5 F H 121 H 46 H 122/83 88 L 11/07/21 05:15 102.5 F H 122 H 24 134/87 90 L 11/07/21 03:00 120 H 24 123/84 92 L 11/07/21 02:45 116 H 24 126/87 90 L 11/06/21 23:39 96 11/06/21 22:15 107 H 24 138/103 94 L 11/06/21 21:45 24 87 L 11/06/21 20:00 99 16 123/88 11/06/21 18:56 98 18 124/89 92 L 11/06/21 16:08 98.5 F 76 20 122/82 95 Intake and Output 11/06/21 11/07/21 11/07/21 22:59 06:59 14:59 Intake Total 179.287 Output Total 700 Balance -520.713 Intake: IV 175 ACETAMINOPHEN IV (For NPO 100 ) 1,000 mg In Empty Bag 1 bag @ 400 mls/hr IVPB ONCE [facility] Rx#:[id number] Dextrose 5% in Water 1, 75 000 ml @ 100 mls/hr IV . Q10H [facility] Rx#:[id number] Intake, IV Titration 4.287 Amount Dexmedetomidine/0.9% NaCl 4.287 (Pmx) 400 mcg In Empty Bag 1 bag @ 0.2 MCG/KG/HR 4.763 mls/hr IV .Q21H [facility] Rx#:[id number] Output: Urine 700 Other: Voiding Method Indwelling Catheter Weight 95.254 kg GENERAL: The patient is lying in bed and is not in acute distress. HENT: Supple neck. CHEST: The heart rate is regular rate rhythm. No murmurs to auscultation. LUNG: Clear to auscultation bilaterally no wheezing noted throughout. Tachypneic and is on non-rebreather. ABDOMEN/GI: Bowel sounds present in all 4 quadrants. No tenderness to palpation throughout. NEUROLOGICAL: Limited because of her condition, on IV Precedex 0.8mcg/kg/hr. Also received IV Morphine, Ativan in ED. Higher mental function: The patient is stupor. She is not following command or verbally responsive. Is moaning. Cranial nerves:I had to manually open her eyes and primary gaze is midline. The pupils are round (2mm) and slugghishly reactive to light. No facial weakness but hard to ascertain because of face mask. Otherwise rest is limited. Motor: The strength is hard to assess because of her condition. But with painful stimuli withdrawing to all but hard to ascertain for focality. Slightly decrease tone throughout. Normal bulk. Cerebellum: Unable to assess. Sensation: Could not assess light touch but seems to have intact to painful stimuli. Reflexes (right/left): 1+ throughout. Plantars are mute bilaterally. Results - Laboratory Findings CBC and BMP: 11/07/21 08:20 11/07/21 08:20 Abnormal Lab Findings: Abnormal Labs 11/06/21 11/06/21 11/06/21 17:35 17:35 17:35 WBC 11.5 H MCHC 30.5 L Neutrophils # 10.7 H Lymphocytes # 0.4 L ABG pCO2 ABG pO2 ABG HCO3 ABG Total CO2 ABG O2 Saturation Sodium 157 H Chloride 124 H Carbon Dioxide 19 L BUN 50 H Creatinine 2.04 H Glucose 131 H POC Glucose (mg/dL) Magnesium AST Procalcitonin 1.11 H Urine Appearance Urine Protein Urine Ketones Urine Blood Ur Leukocyte Esterase Urine RBC Urine WBC Urine Bacteria Coronavirus (PCR) 11/06/21 11/06/21 11/07/21 18:20 22:23 08:20 WBC 20.7 H MCHC 30.7 L Neutrophils # Lymphocytes # ABG pCO2 ABG pO2 ABG HCO3 ABG Total CO2 ABG O2 Saturation Sodium Chloride Carbon Dioxide BUN Creatinine Glucose POC Glucose (mg/dL) 118 H Magnesium AST Procalcitonin Urine Appearance Cloudy H Urine Protein 1+ H Urine Ketones Trace H Urine Blood Trace H Ur Leukocyte Esterase Small H Urine RBC 7 H Urine WBC 9 H Urine Bacteria Many H Coronavirus (PCR) 11/07/21 11/07/21 11/07/21 08:20 09:24 09:40 WBC MCHC Neutrophils # Lymphocytes # ABG pCO2 31 L ABG pO2 56 L* ABG HCO3 17 L ABG Total CO2 18 L ABG O2 Saturation 88.3 L Sodium 162 H* Chloride 130 H Carbon Dioxide 14 L BUN 58 H Creatinine 2.13 H Glucose 100 H POC Glucose (mg/dL) Magnesium 2.7 H AST 45 H Procalcitonin Urine Appearance Urine Protein Urine Ketones Urine Blood Ur Leukocyte Esterase Urine RBC Urine WBC Urine Bacteria Coronavirus (PCR) Detected A Assessment and Plan Assessment: Encephalopathy seems due to multifactorial: COVID-19 pneumonia. Also component of metabolic encephalopathy (hypernatremia, JAYLA) and medication effect (IV Precedex, Morphine and Ativan). History of seizure and she had a seizure about 6-8 years ago (arnol starkarla) while ?reported GTC on 03/15/2021 (but her 2.5 hour EEG and routine EEG was negative for seizure or epileptiform discharges) Acute hypoxemic respiratory failure secondary due to pneumonia Acute hypernatremia Recent caldwell virus infection History of diabetes History of hyper-thousand Schizoaffective disorder Primary history of tobacco use History of heavy alcohol use History of marijuana use Plan: An EEG is ordered by the primary team and is pending. A CT of the head is also ordered by the ED team is pending. I started the patient on thiamine 100 mg IV daily Every 2 neurochecks I ordered ammonia level Ordered TSH with free T4. Nephrology team is consulted Psychiatry team is consulted We'll defer the rest of the medical management to the primary and ICU team Thank you for the consultation. Breezy Orozco M.D. Neuro[facility]hospital Time with Patient: Greater than 30
[2021-11-07] MEDS ORDERED: NALOXONE 0.4 MG/ML 1 ML VIAL IV PRN (11:49)
--- NOTE | 2021-11-07 13:15 | P.HPIM ---
History of Present Illness H&P Date: 11/07/21 Chief Complaint: Decreased mentation History of presenting complaint: This is a 50-year-old patient, who follows with Dr. Saenz . Resident of [facility].. known history of bipolar disorder and schizophrenia. 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 Patient was here in May 2021. Severe hypernatremia, acute kidney injury metabolic encephalopathy. Did have some workup done for [place]'s disease. Low-dose and high-dose dexamethasone test was put on telemetry specific. Does of Synthroid was increased. Patient now brought in from [facility]. Patient was diagnosed with COVID 19 a few days ago. Was on Paxil of it. Patient became increasingly lethargic. Patient is felt to secondary bacterial pneumonia. Given Levaquin and transferred here. Also noted. Significantly hypernatremic. Patient admitted to ICU. Consultation is made to creche attendant, nephrology, psychiatry, neurology. This morning patient has not ICU. On a Precedex drip. BiPAP. Lethargic. Not able to give any history. Review of systems: The cause of encephalopathy not able to give any history . Past medical history to include: Hypertension, hypothyroid, bipolar disorder, schizophrenia. excessive alcohol use in the past. No smoking. Psychosis, catatonic-like syndrome Social history: Heavy alcohol use in the past. . No smoking. Currently at [facility] Family history: Patient cannot tell Physical examination: VITAL SIGNS: 98.5, 76, 20, 122/82, 95% on 4 L GENERAL: Lethargic. BiPAP EYES: Pupils equal. Conjunctiva normal. HEENT: External appearance of nose and ears normal, oral cavity dry. NECK: JVD unable to assess; masses not palpable. HEART: First and second heart sounds are normal; no edema. LUNGS: Respiratory rate increased; decreased breath sounds ABDOMEN: Soft, nontender, liver spleen not palpable, no masses palpable. PSYCH: Encephalopathic, unable to assess DERMATOLOGICAL: area of skin broke down from bullae left arm: Improved MUSCULOSKELETAL:No Clubbing/cyanosis;muscles-grossly intact. NEUROLOGICAL: [Cranial nerves grossly intact; no facial asymmetry, INVESTIGATIONS, reviewed in the clinical context: November 07: White count 20.7 hemoglobin 12 platelets 345 sodium 162 potassium 4.2. 58 creatinine 2.13 ammonia less than 9 COVID 19: Detected November 06: White count 9.5 hemoglobin 12.6 platelets 321 sodium 157 potassium 4.3 chloride 124 BUN 50 creatinine 2.04 UA positive for leukoesterase, WBC Pro-calcitonin 1.11 Chest x-ray film personally reviewed by me-scattered infiltrate Previous labs: BUN 9 creatinine 0.95 on June 2021 Assessment and plan: -Severe hypernatremia, from free water deficit from decreased oral intake D5W at 100 mL an hour -Acute hypoxic respiratory failure from respiratory suppression multifactorial BiPAP -Acute severe metabolic encephalopathy from renal failure and delirium: Treat underlying conditions -Schizoaffective disorder, bipolar type. Psychosis: Clozaril 200 mg by mouth daily 3 times a day Lamictal 25 mg twice a day Ativan 1 mg IV every 4 when necessary -Bipolar disorder See above medications -Acute kidney injury, possibly prerenal/ ATN D5W. -Diabetes mellitus type 2, on oral hypoglycemic Hold metformin Follow Accu-Cheks -Hypothyroid, Synthroid 100g a day -Hyperlipidemia Lipitor 40 mg daily at bedtime TriCor 134 mg before supper -Chronic DVT both lower extremity diagnosed on October 19 2020 [place]. -Full code ICU. NG tube ordered for medications. IV Precedex. Consultation to neurology, nephrology, creche attendant. Psychiatrist to review medications. EEG. Follow lites closely. Past Medical History Past Medical History: Diabetes Mellitus, Hypertension, Thyroid Disorder Additional Past Medical History / Comment(s): hx obtained from . Pt unable to answer History of Any Multi-Drug Resistant Organisms: None Reported Past Surgical History: Appendectomy, Cholecystectomy, Tubal Ligation Additional Past Surgical History / Comment(s): tubal 03/2003 Past Anesthesia/Blood Transfusion Reactions: No Reported Reaction Past Psychological History: Bipolar, Depression Smoking Status: Former smoker Past Alcohol Use History: Heavy Past Drug Use History: Marijuana - Past Family History Mother Family Medical History: Cancer Father Family Medical History: Myocardial Infarction ([place]) Medications and Allergies Home Medications Medication Instructions Recorded Confirmed Type Cholecalciferol [Vitamin D3 (25 50 mcg PO DIRECTED 10/10/20 11/06/21 History Mcg = 1000 Iu)] Acetaminophen Tab [Tylenol] 650 mg PO Q6H PRN 03/14/21 11/06/21 History Apixaban [Eliquis] 5 mg PO DAILY@0900 03/14/2111/06/22 History Atorvastatin Calcium [Lipitor] 40 mg PO HS@209903/14/21 11/06/21 History Fenofibrate,Micronized 134 mg PO HS@209903/14/21 11/06/21 History [Fenofibrate] Isosorbide Mononitrate ER [Imdur] 30 mg PO DAILY@0906/14/21 11/06/21 History bisacodyL [Dulcolax] 10 mg RECTAL DAILY PRN 06/14/21 11/06/21 History lamoTRIgine [LaMICtal] 25 mg PO BID@0900,209906/14/21 11/06/21 History Albuterol Sulfate [Albuterol 2 puff PO RT-QID 11/06/21 11/06/21 History Sulfate Hfa] Apixaban [Eliquis] 5 mg PO DIRECTED 11/06/21 11/06/21 History Ascorbic Acid [Vitamin C] 500 mg PO BID@0900,209911/06/21 11/06/21 History Aspirin EC [Ecotrin Low Dose] 81 mg PO DAILY@89911/06/21 11/06/21 History Budesonide [Pulmicort Flexhaler] 1 puff INHALATION RT-DAILY 11/06/21 11/06/21 History Budesonide [Pulmicort Flexhaler] 2 puff INHALATION DIRECTED 11/06/21 11/06/21 History Cholecalciferol [Vitamin D3 (125 125 mcg PO DAILY@0911/06/21 11/06/21 History Mcg = 5000 Iu)] Famotidine [Pepcid] 20 mg PO BID@0900,209911/06/21 11/06/21 History LORazepam [Ativan] 1 mg PO Q8H PRN 11/06/21 11/06/21 History Levothyroxine Sodium [Synthroid] 100 mcg PO DAILY@59911/06/21 11/06/21 History Magnesium Hydroxide [Milk of 7,200 mg PO Q48H PRN 11/06/21 11/06/21 History Magnesia Concentrate] Nirmatrelvir/Ritonavir [Paxlovid 3 tab PO BID@0900,1700 11/06/21 11/06/21 History 2X150 mg-100 mg (Eua)] Potassium Chloride ER [K-Dur 20] 20 meq PO DAILY@0900 11/06/21 11/06/21 History Psyllium Husk 100% [Metamucil 1 tbsp PO DAILY@0900 11/06/21 11/06/21 History Packet] Zinc Gluconate [Zinc] 50 mg PO DAILY@0900 11/06/21 11/06/21 History cloZAPine [Clozapine] 200 mg PO TID@0900,1300,209911/06/21 11/06/21 History metFORMIN HCL [Glucophage] 500 mg PO BID@0900,2100 11/06/21 11/06/21 History Allergies Allergy/AdvReac Type Severity Reaction Status Date / Time cefuroxime axetil Allergy Rash/Hives Verified 11/06/21 17:28 [From Ceftin] Penicillins Allergy Rash/Hives Verified 11/06/21 17:28 thioridazine AdvReac muscle Verified 11/06/21 17:28 stiffness Physical Exam Vitals: Vital Signs Temp Pulse Resp BP Pulse Ox FiO2 11/07/21 10:00 114 H 46 H 112/82 95 100 11/07/21 09:50 114 H 50 H 112/82 94 L 11/07/21 09:48 100 11/07/21 09:43 100 11/07/21 09:40 122 H 49 H 86 L 11/07/21 09:30 43 H 99/75 88 L 11/07/21 09:20 100.5 F H 121 H 46 H 122/83 88 L 11/07/21 05:15 102.5 F H 122 H 24 134/87 90 L 11/07/21 03:00 120 H 24 123/84 92 L 11/07/21 02:45 116 H 24 126/87 90 L 11/06/21 23:39 96 11/06/21 22:15 107 H 24 138/103 94 L 11/06/21 21:45 24 87 L 11/06/21 20:00 99 16 123/88 11/06/21 18:56 98 18 124/89 92 L 11/06/21 16:08 98.5 F 76 20 122/82 95 Intake and Output 11/06/21 11/07/21 11/07/21 22:59 06:59 14:59 Intake Total 179.287 Output Total 700 Balance -520.713 Intake: IV 175 ACETAMINOPHEN IV (For NPO 100 ) 1,000 mg In Empty Bag 1 bag @ 400 mls/hr IVPB ONCE [facility] Rx#:[id number] Dextrose 5% in Water 1, 75 000 ml @ 100 mls/hr IV . Q10H [facility] Rx#:[id number] Intake, IV Titration 4.287 Amount Dexmedetomidine/0.9% NaCl 4.287 (Pmx) 400 mcg In Empty Bag 1 bag @ 0.2 MCG/KG/HR 4.763 mls/hr IV .Q21H [facility] Rx#:[id number] Output: Urine 700 Other: Weight 95.254 kg Results CBC & Chem 7: 11/07/21 08:20 11/07/21 08:20 Labs: Abnormal Lab Results - Last 24 Hours (Table) 11/06/21 11/06/21 11/06/21 Range/Units 17:35 17:35 17:35 WBC 11.5 H (3.8-10.6) k/uL MCHC 30.5 L (31.0-37.0) g/dL Neutrophils # 10.7 H (1.3-7.7) k/uL Lymphocytes # 0.4 L (1.0-4.8) k/uL ABG pCO2 (35-45) mmHg ABG pO2 (83-108) mmHg ABG HCO3 (21-25) mmol/L ABG Total CO2 (19-24) mmol/L ABG O2 Saturation (94-97) % Sodium 157 H (137-145) mmol/L Chloride 124 H (98-107) mmol/L Carbon Dioxide 19 L (22-30) mmol/L BUN 50 H (7-17) mg/dL Creatinine 2.04 H (0.52-1.04) mg/dL Glucose 131 H (74-99) mg/dL POC Glucose (mg/dL) (70-110) mg/dL Magnesium (1.6-2.3) mg/dL AST (14-36) U/L Procalcitonin 1.11 H (0.02-0.09) ng/mL Urine Appearance (Clear) Urine Protein (Negative) Urine Ketones (Negative) Urine Blood (Negative) Ur Leukocyte Esterase (Negative) Urine RBC (0-5) /hpf Urine WBC (0-5) /hpf Urine Bacteria (None) /hpf 11/06/21 11/06/21 11/07/21 Range/Units 18:20 22:23 08:20 WBC 20.7 H (3.8-10.6) k/uL MCHC 30.7 L (31.0-37.0) g/dL Neutrophils # (1.3-7.7) k/uL Lymphocytes # (1.0-4.8) k/uL ABG pCO2 (35-45) mmHg ABG pO2 (83-108) mmHg ABG HCO3 (21-25) mmol/L ABG Total CO2 (19-24) mmol/L ABG O2 Saturation (94-97) % Sodium (137-145) mmol/L Chloride (98-107) mmol/L Carbon Dioxide (22-30) mmol/L BUN (7-17) mg/dL Creatinine (0.52-1.04) mg/dL Glucose (74-99) mg/dL POC Glucose (mg/dL) 118 H (70-110) mg/dL Magnesium (1.6-2.3) mg/dL AST (14-36) U/L Procalcitonin (0.02-0.09) ng/mL Urine Appearance Cloudy H (Clear) Urine Protein 1+ H (Negative) Urine Ketones Trace H (Negative) Urine Blood Trace H (Negative) Ur Leukocyte Esterase Small H (Negative) Urine RBC 7 H (0-5) /hpf Urine WBC 9 H (0-5) /hpf Urine Bacteria Many H (None) /hpf 11/07/21 11/07/21 Range/Units 08:20 09:24 WBC (3.8-10.6) k/uL MCHC (31.0-37.0) g/dL Neutrophils # (1.3-7.7) k/uL Lymphocytes # (1.0-4.8) k/uL ABG pCO2 31 L (35-45) mmHg ABG pO2 56 L* (83-108) mmHg ABG HCO3 17 L (21-25) mmol/L ABG Total CO2 18 L (19-24) mmol/L ABG O2 Saturation 88.3 L (94-97) % Sodium 162 H* (137-145) mmol/L Chloride 130 H (98-107) mmol/L Carbon Dioxide 14 L (22-30) mmol/L BUN 58 H (7-17) mg/dL Creatinine 2.13 H (0.52-1.04) mg/dL Glucose 100 H (74-99) mg/dL POC Glucose (mg/dL) (70-110) mg/dL Magnesium 2.7 H (1.6-2.3) mg/dL AST 45 H (14-36) U/L Procalcitonin (0.02-0.09) ng/mL Urine Appearance (Clear) Urine Protein (Negative) Urine Ketones (Negative) Urine Blood (Negative) Ur Leukocyte Esterase (Negative) Urine RBC (0-5) /hpf Urine WBC (0-5) /hpf Urine Bacteria (None) /hpf
--- NOTE | 2021-11-07 13:58 | US ---
EXAMINATION TYPE: US kidneys/renal and bladder DATE OF EXAM: 11/07/2021 COMPARISON: US dated 11/10/2020 CLINICAL HISTORY: kriss. EXAM MEASUREMENTS: Right Kidney: 10.8 x 5.2 x 5.2 cm Left Kidney: 12.0 x 4.5 x 5.5 cm Kidneys are echogenic bilaterally, cortical medullary differentiation somewhat reduced. Lower poles p artially obscured by bowel gas. Right Kidney: No hydronephrosis or masses seen Left Kidney: No hydronephrosis or masses seen Bladder: limited visualization, patient has catheter Bilateral Jets seen: No There is no evidence for hydronephrosis at this point in time. No nephrolithiasis is seen. No brenna s are identified. IMPRESSION: Correlate for medical renal disease.
[2021-11-07 14:19] LABS: T4, Free (Free Thyroxine) 1.49 ng/dL (0.78-2.19)
--- NOTE | 2021-11-07 14:54 | P.CN ---
Psychiatric Consult - . Consult date: 11/07/21 Consult:: 11/07/21 14:53 Psychiatry will attempt to evaluate when the patient is more appropriate. Patient presentation not likely related to acute psychiatric pathology. Chart reviewed. Will re-attempt evaluation tomorrow.
--- NOTE | 2021-11-07 15:25 | XR ---
"EXAMINATION TYPE: XR chest 1V portable DATE OF EXAM: 11/07/2021 COMPARISON: 11/07/2021 HISTORY: NG tube placement TECHNIQUE: Single frontal view of the chest is obtained. FINDINGS: There has been interval placement of an NG tube, distal tip is within the stomach, side-po rt is within the distal esophagus. No evident pneumothorax or pleural effusion. Bilateral airspace di sease is present. Cardiac mediastinal silhouette is stable. There are overlying artifacts. IMPRESSION: NG tube as described, consider advancing approximately 2 cm A Yellow level critical message alert has been initiated for Dakota Carrasco MD via the [employer] 36 0 | Critical Results System on 11/07/2021 3:23 PM. This message alert has been sent to Dakota Carrasco MD via the preferences provided by the clinician for the receipt of Radiology Critical Findings. [facility] ID [id number]."
[2021-11-07] MEDS ORDERED: HEPARIN SODIUM,PORCINE/PF 5,000 UNIT/0.5 ML SYRINGE SQ SCH (16:00)
[2021-11-07] MEDS: cloZAPine 100 MG TAB PO SCH ×2 (16:01→21:19)
[2021-11-07] MEDS: LEVOTHYROXINE 100 MCG TAB PO SCH (16:01)
[2021-11-07] MEDS: SODIUM BICARBONATE TAB 650 MG TAB PO SCH ×3 (16:01→21:22)
[2021-11-07] MEDS: APIXABAN 5 MG TAB PO SCH (16:01)
[2021-11-07] MEDS: lamoTRIgine 25 MG TAB PO SCH ×2 (16:01→21:19)
[2021-11-07 17:50] LABS: Calcium 9.1 mg/dL (8.4-10.2); Potassium 3.5 mmol/L (3.5-5.1)
[2021-11-07] MEDS ORDERED: Potassium Replacement Protocol 1 EACH MISC MISCELLANE PRN (18:03)
[2021-11-07] MEDS: INSULIN ASPART (NovoLOG) 100 UNIT/ML VIAL SQ SCH ×2 (18:03→23:11)
[2021-11-07] MEDS: POTASSIUM BICARBONATE/CIT AC 20 MEQ TABLET.EFF NG-TUBE SCH ×2 (18:46→19:59)
[2021-11-07] MEDS: ATORVASTATIN 40 MG TAB PO SCH (21:20)
[2021-11-07 23:10] LABS: Glucose,Whole Blood 220 mg/dL (70-110)
[2021-11-08] MEDS: LORazepam 2 MG/ML INJ IV PRN ×4 (00:54→18:13)
[2021-11-08] MEDS: DEXTROSE 5% IN WATER 1,000 ML IV SCH ×2 (02:25→17:54)
[2021-11-08] MEDS: DEXMEDETOMIDINE/0.9% NACL(PMX) 400 MCG in EMPTY BAG 1 BAG IV SCH ×2 (05:28→21:53)
[2021-11-08] MEDS: INSULIN ASPART (NovoLOG) 100 UNIT/ML VIAL SQ SCH ×4 (05:31→23:47)
[2021-11-08 05:32] LABS: Glucose,Whole Blood 125 mg/dL (70-110)
[2021-11-08] MEDS: LEVOTHYROXINE 100 MCG TAB PO SCH (05:32)
[2021-11-08 08:01] LABS: HCT 37.2 % (34.0-46.0); HGB 11.4 gm/dL (11.4-16.0); Hypochromasia Marked; MCH 26.6 pg (25.0-35.0); MCHC 30.6 g/dL (31.0-37.0); MCV 86.8 fL (80.0-100.0); Mean Platelet Volume 8.4; Platelet Count 278 k/uL (150-450); RBC 4.29 m/uL (3.80-5.40); WBC 12.7 k/uL (3.8-10.6)
[2021-11-08] MEDS: PANTOPRAZOLE 40 MG/10 ML VIAL IV SCH (08:14)
[2021-11-08] MEDS: APIXABAN 5 MG TAB PO SCH (08:14)
[2021-11-08] MEDS: ASPIRIN 81 MG PO SCH (08:15)
[2021-11-08] MEDS: SODIUM BICARBONATE TAB 650 MG TAB PO SCH (08:15)
[2021-11-08] MEDS: cloZAPine 100 MG TAB PO SCH ×3 (08:15→20:28)
[2021-11-08] MEDS: lamoTRIgine 25 MG TAB PO SCH ×2 (08:15→21:46)
--- NOTE | 2021-11-08 08:27 | XR ---
EXAMINATION TYPE: XR chest 1V DATE OF EXAM: 11/08/2021 COMPARISON: 11/07/2021 HISTORY: Shortness of breath TECHNIQUE: Single frontal view of the chest is obtained. FINDINGS: NG tube seen in the region of the gastric fundus. Multifocal bilateral airspace disease no leta. No sizable pleural effusion or pneumothorax. Heart size stable. Osseous structures stable. IMPRESSION: Stable multifocal bilateral airspace disease correlate for pneumonia.
[2021-11-08 08:43] LABS: Calcium 8.7 mg/dL (8.4-10.2); Magnesium 2.8 mg/dL (1.6-2.3)
--- NOTE | 2021-11-08 09:05 | P.PN ---
Subjective Patient is seen in follow-up for acute kidney injury and hypernatremia. Patient is maintained on D5 W at 100 mL an hour. Morning labs are pending. She is on BiPAP. Vital signs are stable. Blood pressure in the lower side. General: Resting in bed. On BiPAP. HEENT: On BiPAP. Exam discussed with the nurse. Objective - Vital Signs Vital signs: Vital Signs Temp 97.6 F 11/08/21 08:00 Pulse 68 11/08/21 08:30 Resp 28 H 11/08/21 08:30 BP 90/52 11/08/21 08:30 Pulse Ox 95 11/08/21 08:00 FiO2 65 11/08/21 08:00 Intake & Output 11/07/21 11/08/21 11/08/21 18:59 06:59 18:59 Intake Total 8168.175 1884.500 156.835 Output Total 1400 730 35 Balance -262.592 672.500 121.835 Weight 83.2 kg Intake: IV 975 1200 100 ACETAMINOPHEN IV (For NPO 100 ) 1,000 mg In Empty Bag 1 bag @ 400 mls/hr IVPB ONCE STA Rx#:[id number] Dextrose 5% in Water 1, 875 1200 100 000 ml @ 100 mls/hr IV . Q10H DENISSE Rx#:[id number] Intake, IV Titration 162.408 202.500 56.835 Amount Dexmedetomidine/0.9% NaCl 162.408 202.500 56.835 (Pmx) 400 mcg In Empty Bag 1 bag @ 0.2 MCG/KG/HR 4.763 mls/hr IV .Q21H DENISSE Rx#:[id number] Output: Urine 1400 730 35 Other: Voiding Method Indwelling Catheter Indwelling Catheter Indwelling Catheter - Labs CBC & Chem 7: 11/08/21 07:43 11/07/21 17:18 Labs: Abnormal Lab Results - Last 24 Hours (Table) 11/06/21 11/07/21 11/07/21 Range/Units 17:35 09:24 09:40 WBC (3.8-10.6) k/uL MCHC (31.0-37.0) g/dL ABG pCO2 31 L (35-45) mmHg ABG pO2 56 L* (83-108) mmHg ABG HCO3 17 L (21-25) mmol/L ABG Total CO2 18 L (19-24) mmol/L ABG O2 Saturation 88.3 L (94-97) % Sodium (137-145) mmol/L Chloride (98-107) mmol/L BUN (7-17) mg/dL Creatinine (0.52-1.04) mg/dL Glucose (74-99) mg/dL POC Glucose (mg/dL) (70-110) mg/dL Procalcitonin 1.11 H (0.02-0.09) ng/mL TSH (0.465-4.680) mIU/L Coronavirus (PCR) Detected A (Not Detectd) 11/07/21 11/07/21 11/07/21 Range/Units 12:27 17:18 23:08 WBC (3.8-10.6) k/uL MCHC (31.0-37.0) g/dL ABG pCO2 (35-45) mmHg ABG pO2 (83-108) mmHg ABG HCO3 (21-25) mmol/L ABG Total CO2 (19-24) mmol/L ABG O2 Saturation (94-97) % Sodium 159 H (137-145) mmol/L Chloride 123 H (98-107) mmol/L BUN 61 H (7-17) mg/dL Creatinine 1.99 H (0.52-1.04) mg/dL Glucose 251 H (74-99) mg/dL POC Glucose (mg/dL) 220 H (70-110) mg/dL Procalcitonin (0.02-0.09) ng/mL TSH <0.015 L (0.465-4.680) mIU/L Coronavirus (PCR) (Not Detectd) 11/08/21 11/08/21 Range/Units 05:30 07:43 WBC 12.7 H (3.8-10.6) k/uL MCHC 30.6 L (31.0-37.0) g/dL ABG pCO2 (35-45) mmHg ABG pO2 (83-108) mmHg ABG HCO3 (21-25) mmol/L ABG Total CO2 (19-24) mmol/L ABG O2 Saturation (94-97) % Sodium (137-145) mmol/L Chloride (98-107) mmol/L BUN (7-17) mg/dL Creatinine (0.52-1.04) mg/dL Glucose (74-99) mg/dL POC Glucose (mg/dL) 125 H (70-110) mg/dL Procalcitonin (0.02-0.09) ng/mL TSH (0.465-4.680) mIU/L Coronavirus (PCR) (Not Detectd) Microbiology - Last 24 Hours (Table) 11/07/21 00:50 Blood Culture - Preliminary Blood No Growth after 24 hours 11/07/21 00:40 Blood Culture - Preliminary Blood No Growth after 24 hours 11/06/21 21:25 Blood Culture - Preliminary Blood No Growth after 24 hours 11/07/21 17:00 Urine Culture - Preliminary Urine,Catheterized Assessment and Plan Plan: Assessment: 1. Acute kidney injury secondary to ATN secondary to hypotension/sepsis. Baseline creatinine near 1 and was 2.13 on admission - 1.99 last night. No hydronephrosis noted on kidney ultrasound. 2. Hypernatremia from lack of oral water intake. Improving with D5W. 3. Metabolic acidosis secondary to acute kidney injury and metformin. Improved. On oral bicarb. 4. Acute hypoxic respiratory failure currently on BiPAP. 5. COVID-19 pneumonia. Plan: Maintain D5W at 100 mL an hour. Avoid nephrotoxins. Continue to monitor renal function and urine output. Follow-up morning labs. Check cortisol level.
[2021-11-08 09:08] LABS: Potassium 4.5 mmol/L (3.5-5.1)
[2021-11-08] MEDS: DEXAMETHASONE SOD PHOSPHATE 10 MG/ML 1 ML VIAL IVP SCH (09:42)
--- NOTE | 2021-11-08 10:36 | P.PN ---
Subjective Progress Note Date: 11/08/21 Principal diagnosis: Pneumonia Pulmonary consult dated 11/07/2021. 50-year-old female, who is brought in by the [place] emergency services. She apparently resides at [facility] in that area. She apparently has a history of schizophrenia, as well as a history of recent infection with coronavirus. The patient was brought in because of mental status changes, and also low saturations. Apparently the patient was evaluated there and thought to have pneumonia. The patient was treated with Levaquin here. Currently, she seen in the emergency room, room 11. She is on 15 L high flow oxygen. She's getting saline at 75 mL an hour. I did have the opportunity to speak to the patient's , name Art. He was able to provide some history. The patient is at the residential as mentioned above, but is unable to prepare food for herself. Her mental status varies hour to hour and day today according to him. The patient herself can give me no history. She sees been here in the emergency department, she's been moaning and groaning. Her chest x-ray shows bilateral patchy infiltrates. A blood gas was done and showed a pO2 of 89, pCO2 35, and pH is 7.332. She apparently has a history of diabetes, hypertension, hyperlipidemia, and hypothyroidism. White count 11.5, hemoglobin 12.6, hematocrit 41.3, with a normal platelet count. Sodium 157, potassium 4.3, chlorides 124, CO2 19, anion gap 14, BUN 50, creatinine 2.04. Her lactic acid was 1.2. Pro-calcitonin level is pending. Urine is yellow and cloudy. There is 1+ protein. Trace blood. Small positive leukocyte esterase, 7 RBCs, 9 WBCs, and many bacteria. Chest x-ray shows patchy bilateral infiltrates. Progress note dated 11/08/2021. 50-year-old female seen in the emergency department yesterday. She was brought in from one of the local nursing homes, with complaints of mental status changes, low saturations, and possibly pneumonia. The patient was initially seen in the ER, and then transferred to the intensive care, where she was seen yesterday and today, in room 254. She's currently on BiPAP. BiPAP settings are 12/5 and 65%. He is currently receiving Levaquin. Microbiologic cultures are negative. She did test positive for coronavirus infection. She's getting D5W 100 mL an hour Precedex at 0.5 mcg/kg per hour. White count was 12.7, hemoglobin 11.4, hematocrit 37.2, and platelet count 270,000. Sodium 153, potassium 4.5, chlorides 119, CO2 27, with a BUN and creatinine of 60, and 1.55. Chest x-ray continues to show bilateral airspace disease. Objective - Vital Signs Vital signs: Vital Signs Temp 97.6 F 11/08/21 08:00 Pulse 82 11/08/21 10:00 Resp 21 11/08/21 10:00 BP 80/50 11/08/21 10:00 Pulse Ox 91 L 11/08/21 10:00 FiO2 65 11/08/21 08:00 Intake & Output 11/07/21 11/08/21 11/08/21 18:59 06:59 18:59 Intake Total 8351.434 2836.500 356.835 Output Total 1400 730 120 Balance -262.592 672.500 236.835 Weight 83.2 kg Intake: IV 975 1200 300 ACETAMINOPHEN IV (For NPO 100 ) 1,000 mg In Empty Bag 1 bag @ 400 mls/hr IVPB ONCE STA Rx#:[id number] Dextrose 5% in Water 1, 875 1200 300 000 ml @ 100 mls/hr IV . Q10H DENISSE Rx#:[id number] Intake, IV Titration 162.408 202.500 56.835 Amount Dexmedetomidine/0.9% NaCl 162.408 202.500 56.835 (Pmx) 400 mcg In Empty Bag 1 bag @ 0.2 MCG/KG/HR 4.763 mls/hr IV .Q21H DENISSE Rx#:[id number] Output: Urine 1400 730 120 Other: Voiding Method Indwelling Catheter Indwelling Catheter Indwelling Catheter - Exam Currently on BiPAP, stable, without agitation. HEENT examination is grossly unremarkable. . Neck supple. Full range of motion. No adenopathy thyromegaly or neck vein distention. Cardiovascular examination reveals regular rhythm rate. S1-S2 normal. No S3 or S4. No discernible murmur noted. Heart sounds are distant. Heart rate 82 bpm. Lungs reveal coarse bilateral rhonchi. Breath sounds equal. No crackles. No wheezes. Saturations are 91% on BiPAP. Abdomen soft bowel sounds are heard. No masses or tenderness. Extremities are intact. No cyanosis clubbing or edema. Skin is without rash or lesion. Neurologic examination is very difficult to assess. - Labs CBC & Chem 7: 11/08/21 07:43 11/08/21 07:43 Labs: Abnormal Lab Results - Last 24 Hours (Table) 11/07/21 11/07/21 11/07/21 Range/Units 09:40 12:27 17:18 WBC (3.8-10.6) k/uL MCHC (31.0-37.0) g/dL Sodium 159 H (137-145) mmol/L Chloride 123 H (98-107) mmol/L BUN 61 H (7-17) mg/dL Creatinine 1.99 H (0.52-1.04) mg/dL Glucose 251 H (74-99) mg/dL POC Glucose (mg/dL) (70-110) mg/dL Magnesium (1.6-2.3) mg/dL TSH <0.015 L (0.465-4.680) mIU/L Coronavirus (PCR) Detected A (Not Detectd) 11/07/21 11/08/21 11/08/21 Range/Units 23:08 05:30 07:43 WBC (3.8-10.6) k/uL MCHC (31.0-37.0) g/dL Sodium 153 H (137-145) mmol/L Chloride 119 H (98-107) mmol/L BUN 60 H (7-17) mg/dL Creatinine 1.55 H (0.52-1.04) mg/dL Glucose 168 H (74-99) mg/dL POC Glucose (mg/dL) 220 H 125 H (70-110) mg/dL Magnesium 2.8 H (1.6-2.3) mg/dL TSH (0.465-4.680) mIU/L Coronavirus (PCR) (Not Detectd) 11/08/21 Range/Units 07:43 WBC 12.7 H (3.8-10.6) k/uL MCHC 30.6 L (31.0-37.0) g/dL Sodium (137-145) mmol/L Chloride (98-107) mmol/L BUN (7-17) mg/dL Creatinine (0.52-1.04) mg/dL Glucose (74-99) mg/dL POC Glucose (mg/dL) (70-110) mg/dL Magnesium (1.6-2.3) mg/dL TSH (0.465-4.680) mIU/L Coronavirus (PCR) (Not Detectd) Microbiology - Last 24 Hours (Table) 11/07/21 00:50 Blood Culture - Preliminary Blood No Growth after 24 hours 11/07/21 00:40 Blood Culture - Preliminary Blood No Growth after 24 hours 11/06/21 21:25 Blood Culture - Preliminary Blood No Growth after 24 hours 11/07/21 17:00 Urine Culture - Preliminary Urine,Catheterized Assessment and Plan Assessment: Acute hypoxemic respiratory failure secondary to bilateral pneumonia. History of recent coronavirus infection. Acute mental status changes, presumably secondary to infection. Hypernatremia. History of hypertension. History of hyperlipidemia. History of diabetes mellitus. History of hypothyroidism. History of schizophrenia. Prior history of tobacco use. History of heavy alcohol use. History of marijuana use. Plan: Plan dated 11/07/2021. The patient's currently receiving Levaquin for her pneumonia. Her saline IV is running at 75 mL an hour. Her IV should be converted to dextrose, at 100 mL an hour. Blood and urine culture should be done if not or ready done. I did speak to the . He gave me a limited information. We spoke briefly about CODE STATUS. I don't have a good sense as to what he or she would want, should her situation declined. She may need admission to the intensive care unit. Labs, x-rays, and medications are reviewed. Prognosis is guarded. Plan dated 11/08/2021. The patient is currently on dexmedetomidine, and her agitation is much better controlled. She was seen by psychiatry. Their input is appreciated. She remains on D5W. She had severe hypernatremia. Her sodium is down to 153. She did test positive for coronavirus infection. She has ready on a factor X a inhibitor. We added Decadron 6 mg IV daily. The patient cannot take anything by mouth at this time. We will attempt to reduce the dexmedetomidine, and reevaluate her neurologic status. Additional recommendations and suggestions are forthcoming. Prognosis is guarded. Time with Patient: Greater than 30
--- NOTE | 2021-11-08 11:45 | CT ---
EXAMINATION TYPE: CT brain wo con DATE OF EXAM: 11/08/2021 COMPARISON: CT dated 03/14/2021 HISTORY: Altered mental status, COVID CT DLP: 1247.4 mGycm Automated exposure control for dose reduction was used. TECHNIQUE: CT scan of the brain is performed without IV contrast administration. FINDINGS: Brain volume loss changes, more than expected for the patient's age. No acute intracranial hemorrhage . No gross acute cortical infarct. No midline shift, herniation or ventriculomegaly. Unremarkable basal cisterns, sella and CP angles. No gross space-occupying lesion, vasogenic edema or mass effect. Unremarkable orbits. The patient is intubated. Mucosal thickening of the maxillary sinuses. Air-fluid level within the sphenoid sinus. Opacified left inferior mastoid air cells. Unremarkable calvarial b ones. IMPRESSION: No acute intracranial abnormality or gross space-occupying lesion by this nonenhanced CT scan. Brain volume loss changes, more than expected for the patient's age. Other findings as described above.
--- NOTE | 2021-11-08 12:46 | P.CN ---
Psychiatric Consult - . Consult date: 11/08/21 Consult:: 11/08/21 12:46 IDENTIFYING DATA: This patient is a , unemployed, 50-year-old female with a significant history of treatment resistant schizophrenia who presented to the emergency department for altered mental status, dehydration, and hypoxia. HISTORY OF PRESENT ILLNESS: The patient presented to the hospital on 11/06/2021, brought in by EMS from [place] emergency department. The patient was admitted medically for management of pneumonia. She was saturating on room air at 88%. Patient was diagnosed with COVID-19 a few days prior to her presentation to this hospital. Patient was given Levaquin and transferred to this hospital. She is noted to be significantly hyponatremic and admitted to the ICU. Psychiatry has been consulted due to the patient's history of depression and schizophrenia. The patient is on a home regimen of clozaril and has a significant history of schizophrenia. Currently we are unable to perform a psychiatric assessment due to the patient's malaise and presentation. PAST PSYCHIATRIC HISTORY: Patient has a significant history of bipolar disorder and schizophrenia. She has had multiple trials of medications including Abilify, Effexor, Tegretol, and trazodone. She is currently on a regimen of lamictal and clozaril. PAST MEDICAL HISTORY: Past Medical History: Diabetes Mellitus, Hypertension, Thyroid Disorder Additional Past Medical History / Comment(s): hx obtained from . Pt unable to answer History of Any Multi-Drug Resistant Organisms: None Reported Past Surgical History: Appendectomy, Cholecystectomy, Tubal Ligation Additional Past Surgical History / Comment(s): tubal 03/2003 Past Anesthesia/Blood Transfusion Reactions: No Reported Reaction Past Psychological History: Bipolar, Depression Smoking Status: Former smoker Past Alcohol Use History: Heavy Past Drug Use History: Marijuana ALLERGIES: as per EMR. CHEMICAL DEPENDENCY HISTORY: Unable to assess FAMILY PSYCHIATRIC/SUBSTANCE USE HISTORY: Unable to assess SOCIAL HISTORY: Patient is a resident [facility] MENTAL STATUS EXAM: General Appearance: Patient appears to be stated age is somnolent, on BiPAP, and unable to cooperate. Patient appears to have an obese body habitus. Behavior: Patient is somnolent. Speech: Unable to assess Mood/Affect: Unable to assess mood. Affect appears to be malaised and so mnolent. Suicidality/Homicidality: Unable to assess Perceptions: Unable to assess Though content/process: Unable to assess Memory and concentration: Unable to assess Judgment and insight: At baseline poor Laboratory Results WBC 12.7 k/uL (3.8-10.6) H 11/08/21 07:43 RBC 4.29 m/uL (3.80-5.40) 11/08/21 07:43 Hgb 11.4 gm/dL (11.4-16.0) 11/08/21 07:43 Hct 37.2 % (34.0-46.0) 11/08/21 07:43 MCV 86.8 fL (80.0-100.0) 11/08/21 07:43 MCH 26.6 pg (25.0-35.0) 11/08/21 07:43 MCHC 30.6 g/dL (31.0-37.0) L 11/08/21 07:43 RDW 15.0 % (11.5-15.5) 11/08/21 07:43 Plt Count 278 k/uL (150-450) 11/08/21 07:43 MPV 8.4 11/08/21 07:43 Neutrophils % 93 % 11/06/21 17:35 Lymphocytes % 4 % 11/06/21 17:35 Monocytes % 2 % 11/06/21 17:35 Eosinophils % 0 % 11/06/21 17:35 Basophils % 0 % 11/06/21 17:35 Neutrophils # 10.7 k/uL (1.3-7.7) H 11/06/21 17:35 Lymphocytes # 0.4 k/uL (1.0-4.8) L 11/06/21 17:35 Monocytes # 0.3 k/uL (0-1.0) 11/06/21 17:35 Eosinophils # 0.0 k/uL (0-0.7) 11/06/21 17:35 Basophils # 0.0 k/uL (0-0.2) 11/06/21 17:35 Hypochromasia Marked 11/08/21 07:43 Sample Site LRAD 11/07/21 09:24 ABG pH 7.35 (7.35-7.45) 11/07/21 09:24 ABG pCO2 31 mmHg (35-45) L 11/07/21 09:24 ABG pO2 56 mmHg (83-108) L* 11/07/21 09:24 ABG HCO3 17 mmol/L (21-25) L 11/07/21 09:24 ABG Total CO2 18 mmol/L (19-24) L 11/07/21 09:24 ABG O2 Saturation 88.3 % (94-97) L 11/07/21 09:24 ABG Base Excess -8.7 mmol/L 11/07/21 09:24 Maycol Test Yes 11/07/21 09:24 FiO2 100 % 11/07/21 09:24 Sodium 153 mmol/L (137-145) H 11/08/21 07:43 Potassium 4.5 mmol/L (3.5-5.1) 11/08/21 07:43 Chloride 119 mmol/L (98-107) H 11/08/21 07:43 Carbon Dioxide 27 mmol/L (22-30) 11/08/21 07:43 Anion Gap 7 mmol/L 11/08/21 07:43 BUN 60 mg/dL (7-17) H 11/08/21 07:43 Creatinine 1.55 mg/dL (0.52-1.04) H 11/08/21 07:43 Est GFR (CKD-EPI)AfAm 44 (>60 ml/min/1.73 sqM) 11/08/21 07:43 Est GFR (CKD-EPI)NonAf 38 (>60 ml/min/1.73 sqM) 11/08/21 07:43 Glucose 168 mg/dL (74-99) H 11/08/21 07:43 POC Glucose (mg/dL) 125 mg/dL (70-110) H 11/08/21 05:30 POC Glu Channeling Machine Operator ID Erin Skelton 11/08/21 05:30 Plasma Lactic Acid Jed 1.2 mmol/L (0.7-2.0) 11/06/21 21:25 Calcium 8.7 mg/dL (8.4-10.2) 11/08/21 07:43 Phosphorus 3.0 mg/dL (2.5-4.5) 11/08/21 07:43 Magnesium 2.8 mg/dL (1.6-2.3) H 11/08/21 07:43 Total Bilirubin 0.6 mg/dL (0.2-1.3) 11/07/21 08:20 AST 45 U/L (14-36) H 11/07/21 08:20 ALT 22 U/L (4-34) 11/07/21 08:20 Alkaline Phosphatase 59 U/L (38-126) 11/07/21 08:20 Ammonia <9 umol/L (<30) 11/07/21 12:27 NT-Pro-B Natriuret Pep 463 pg/mL 11/07/21 08:20 Total Protein 6.4 g/dL (6.3-8.2) 11/07/21 08:20 Albumin 3.5 g/dL (3.5-5.0) 11/07/21 08:20 Procalcitonin 1.11 ng/mL (0.02-0.09) H 11/06/21 17:35 TSH <0.015 mIU/L (0.465-4.680) L 11/07/21 12:27 Free T4 1.49 ng/dL (0.78-2.19) 11/07/21 12:27 Cortisol 18 ug/dL 11/08/21 07:43 Urine Color Yellow 11/06/21 18:20 Urine Appearance Cloudy (Clear) H 11/06/21 18:20 Urine pH 7.0 (5.0-8.0) 11/06/21 18:20 Ur Specific [place] 1.017 (1.001-1.035) 11/06/21 18:20 Urine Protein 1+ (Negative) H 11/06/21 18:20 Urine Glucose (UA) Negative (Negative) 11/06/21 18:20 Urine Ketones Trace (Negative) H 11/06/21 18:20 Urine Blood Trace (Negative) H 11/06/21 18:20 Urine Nitrite Negative (Negative) 11/06/21 18:20 Urine Bilirubin Negative (Negative) 11/06/21 18:20 Urine Urobilinogen 2.0 mg/dL (<2.0) 11/06/21 18:20 Ur Leukocyte Esterase Small (Negative) H 11/06/21 18:20 Urine RBC 7 /hpf (0-5) H 11/06/21 18:20 Urine WBC 9 /hpf (0-5) H 11/06/21 18:20 Ur Squamous Epith Cells 1 /hpf (0-4) 11/06/21 18:20 Urine Bacteria Many /hpf (None) H 11/06/21 18:20 Coronavirus (PCR) Detected (Not Detectd) A 11/07/21 09:40 Vital Signs Temp 97.6 F 11/08/21 08:00 Pulse 82 11/08/21 10:00 Resp 21 11/08/21 10:00 BP 80/50 11/08/21 10:00 Pulse Ox 91 L 11/08/21 10:00 FiO2 60 11/08/21 11:42 Intake & Output 11/07/21 11/08/21 11/08/21 18:59 06:59 18:59 Intake Total 1117.657 3443.500 356.835 Output Total 1400 730 120 Balance -262.592 672.500 236.835 Weight 83.2 kg Intake: IV 975 1200 300 ACETAMINOPHEN IV (For NPO 100 ) 1,000 mg In Empty Bag 1 bag @ 400 mls/hr IVPB ONCE STA Rx#:[id number] Dextrose 5% in Water 1, 875 1200 300 000 ml @ 100 mls/hr IV . Q10H DENISSE Rx#:[id number] Intake, IV Titration 162.408 202.500 56.835 Amount Dexmedetomidine/0.9% NaCl 162.408 202.500 56.835 (Pmx) 400 mcg In Empty Bag 1 bag @ 0.2 MCG/KG/HR 4.763 mls/hr IV .Q21H DENISSE Rx#:[id number] Output: Urine 1400 730 120 Other: Voiding Method Indwelling Catheter Indwelling Catheter Indwelling Catheter IMPRESSIONS: Hypernatremia Acute hypoxic respiratory failure Acute metabolic encephalopathy Schizoaffective disorder, bipolar type Acute kidney injury PLAN: -At this time patient DOES [NOT] meet criteria for inpatient psychiatric admission. Patient's primary concern is her encephalopathy and acute medical presentation that is outside the realm of psychiatric pathology. Please address the acute medical concerns. Once addressed, then please consider psychiatric consult should the patient require psychiatric evaluation and care. Right now, the patient is inappropriate for psychiatric evaluation. -Would recommend the following medication changes/additions: No medication recommendations are made at this time. Continue Clozaril and Lamictal -Psychiatry will sign off at this time. 11/08/21 12:46
--- NOTE | 2021-11-08 16:26 | P.PN ---
Subjective Progress Note Date: 11/08/21 Per the patient's nurse, she continues to be on BiPAP. She continues to be confused. No further fevers. She has episode of hypoexemia as low as 88%. An EEG was not performed since on BiPAP. Objective - Vital Signs Vital signs: Vital Signs Temp 98 F 11/08/21 12:30 Pulse 98 11/08/21 14:30 Resp 57 H 11/08/21 14:30 BP 105/74 11/08/21 14:30 Pulse Ox 88 L 11/08/21 14:30 FiO2 60 11/08/21 15:09 Intake & Output 11/07/21 11/08/21 11/08/21 18:59 06:59 18:59 Intake Total 5060.183 3553.500 356.835 Output Total 1400 730 120 Balance -262.592 672.500 236.835 Weight 83.2 kg Intake: IV 975 1200 300 ACETAMINOPHEN IV (For NPO 100 ) 1,000 mg In Empty Bag 1 bag @ 400 mls/hr IVPB ONCE STA Rx#:[id number] Dextrose 5% in Water 1, 875 1200 300 000 ml @ 100 mls/hr IV . Q10H [facility] Rx#:[id number] Intake, IV Titration 162.408 202.500 56.835 Amount Dexmedetomidine/0.9% NaCl 162.408 202.500 56.835 (Pmx) 400 mcg In Empty Bag 1 bag @ 0.2 MCG/KG/HR 4.763 mls/hr IV .Q21H [facility] Rx#:[id number] Output: Urine 1400 730 120 Other: Voiding Method Indwelling Catheter Indwelling Catheter Indwelling Catheter - Exam GENERAL: The patient is lying in bed and seems in slight distress is not in acute distress. HENT: Supple neck. LUNG: Tachypneic and is on BiPAP NEUROLOGICAL: Limited. Higher mental function: The patient is stupor. She is not following command or verbally responsive. Is moaning. Cranial nerves:I had to manually open her eyes and primary gaze is midline. The pupils are round (2mm) and slugghishly reactive to light. No facial weakness b ut hard to ascertain because of face mask. Otherwise rest is limited. Motor: The strength is hard to assess because of her condition. But moving her lower extremities on her own spontaneously above gravity. Slightly decrease tone throughout. Normal bulk. Cerebellum: Unable to assess. Sensation: Could not assess light touch but seems to have intact to painful stimuli. Reflexes (right/left): 1+ throughout. Plantars are mute bilaterally. Some of the work-up in our facility during this visit consisted of: TSH is less than 0.015 but the free T4 is 1.49 Ammonia level is less than 9 Is reported as no acute intracranial abnormality or gross space-occupying lesion by this nonenhanced computed tomography scan. Brain volume loss changes more than expected for the patient's age. I personally reviewed the CT of the head and I agree with the report. - Labs CBC & Chem 7: 11/08/21 07:43 11/08/21 07:43 Labs: Abnormal Lab Results - Last 24 Hours (Table) 11/07/21 11/07/21 11/08/21 Range/Units 17:18 23:08 05:30 WBC (3.8-10.6) k/uL MCHC (31.0-37.0) g/dL Sodium 159 H (137-145) mmol/L Chloride 123 H (98-107) mmol/L BUN 61 H (7-17) mg/dL Creatinine 1.99 H (0.52-1.04) mg/dL Glucose 251 H (74-99) mg/dL POC Glucose (mg/dL) 220 H 125 H (70-110) mg/dL Magnesium (1.6-2.3) mg/dL 11/08/21 11/08/21 Range/Units 07:43 07:43 WBC 12.7 H (3.8-10.6) k/uL MCHC 30.6 L (31.0-37.0) g/dL Sodium 153 H (137-145) mmol/L Chloride 119 H (98-107) mmol/L BUN 60 H (7-17) mg/dL Creatinine 1.55 H (0.52-1.04) mg/dL Glucose 168 H (74-99) mg/dL POC Glucose (mg/dL) (70-110) mg/dL Magnesium 2.8 H (1.6-2.3) mg/dL Microbiology - Last 24 Hours (Table) 11/07/21 00:50 Blood Culture - Preliminary Blood No Growth after 24 hours 11/07/21 00:40 Blood Culture - Preliminary Blood No Growth after 24 hours 11/06/21 21:25 Blood Culture - Preliminary Blood No Growth after 24 hours 11/07/21 17:00 Urine Culture - Preliminary Urine,Catheterized Assessment and Plan Assessment: Encephalopathy seems due to multifactorial: COVID-19 pneumonia. Also component of metabolic encephalopathy (hypernatremia, JAYLA). 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 meningoencephalitis History of seizure and she had a seizure about 6-8 years ago (blank starkarla) while ?reported GTC on 03/15/2021 (but her 2.5 hour EEG and routine EEG was negative for seizure or epileptiform discharges) Acute hypoxemic respiratory failure secondary due to pneumonia Acute hypernatremia--trending down JAYLA--trending down Recent caldwell virus infection History of diabetes History of hyper-thousand Schizoaffective disorder Primary history of tobacco use History of heavy alcohol use History of marijuana use Plan: An EEG is ordered by the primary team and is pending (cannot be performed at this time since on BiPAP). I started the patient on thiamine 100 mg IV daily Every 2 neurochecks Patient is on Amna course. I spoke with the patient's regarding her condition via phone and notified him that my suspicion of meningeal encephalitis is very low but a lumbar puncture can be helpful but he stated he does not want to pursue with lumbar puncture. Nephrology team is consulted Psychiatry team is consulted We'll defer the rest of the medical management to the primary and ICU team Patient condition is very guarded. The plan is discussed with the patient's primary team. Breezy Orozco M.D. [facility]hospital Time with Patient: Less than 30
--- NOTE | 2021-11-08 17:01 | P.PN ---
Progress Note - Text Progress Note Date: 11/08/21 Chief Complaint: Decreased mentation History of presenting complaint: This is a 50-year-old patient, who follows with Dr. Saenz . Resident of [facility].. known history of bipolar disorder and schizophrenia. 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 Patient was here in May 2021. Severe hypernatremia, acute kidney injury metabolic encephalopathy. 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 Low-dose and high-dose dexamethasone test was put on telemetry specific. Does of Synthroid was increased. Patient now brought in from [facility]. Patient was diagnosed with COVID 19 a few days ago. Was on Paxil of it. Patient became increasingly lethargic. Patient is felt to secondary bacterial pneumonia. Given Levaquin and transferred here. Also noted. Significantly hypernatremic. Patient admitted to ICU. Consultation is made to exercise teacher, nephrology, psychiatry, neurology. This morning patient int ICU. On a Precedex drip. BiPAP. Lethargic. Not able to give any history. Admitted with COVID 19 pneumonitis, hypoxia, possibly secondary bacterial pneumonia, severe hyponatremia, severe metabolic encephalopathy, acute kidney injury. On IV Precedex. IV fluids. Levaquin. EEG. November 08: ICU: On BiPAP 04/23. IV Precedex. Lethargic. IV Levaquin. Oral bicarbonate. Medications through NG tube. EEG pending. Active Medications Albuterol Sulfate (Albuterol Hfa Inhaler) 2 puff INHALATION RT-QID PRN PRN Reason: Shortness Of Breath Or Wheezing Apixaban (Apixaban 5 Mg Tab) 5 mg PO DAILY@0900 [facility]; Protocol Last Admin: 11/08/21 08:14 Dose: 5 mg Aspirin (Aspirin 81 Mg) 81 mg PO DAILY@0900 [facility] Last Admin: 11/08/21 08:15 Dose: 81 mg Atorvastatin Calcium (Atorvastatin 40 Mg Tab) 40 mg PO HS@2100 [facility] Last Admin: 11/07/21 21:20 Dose: 40 mg Clozapine (Clozapine 100 Mg Tab) 200 mg PO TID@0900,1300,2100 [facility] Stop: 11/15/21 23:00 Last Admin: 11/08/21 08:15 Dose: 200 mg Dexamethasone Sodium Phosphate (Dexamethasone Sod Phosphate 10 Mg/Ml 1 Ml Vial) 6 mg IVP DAILY [facility] Last Admin: 11/08/21 09:42 Dose: 6 mg Dextrose/Water (Dextrose 5%-Water Iv Soln) 1,000 mls @ 100 mls/hr IV .Q10H [facility] Last Admin: 11/08/21 02:25 Dose: 100 mls/hr Levofloxacin 750 mg/ IV (Solution) 150 mls @ 100 mls/hr IVPB Q48H [facility]; Protocol Dexmedetomidine HCl 400 mcg/ (IV Solution) 100 mls @ 4.763 mls/hr IV .Q21H [facility]; Protocol Last Titration: 11/08/21 08:34 Dose: 0.6 mcg/kg/hr, 14.288 mls/hr Insulin Aspart (Insulin Aspart (Novolog) 100 Unit/Ml Vial) 0 unit SQ Q6HR [facility]; Protocol Last Admin: 11/08/21 05:31 Dose: Not Given Lamotrigine (Lamotrigine 25 Mg Tab) 25 mg PO BID@0900,2100 [facility] Last Admin: 11/08/21 08:15 Dose: 25 mg Levothyroxine Sodium (Levothyroxine 100 Mcg Tab) 100 mcg PO DAILY@0600 [facility] Last Admin: 11/08/21 05:32 Dose: 100 mcg Lorazepam (Lorazepam 2 Mg/Ml Inj) 1 mg IV Q4HR PRN PRN Reason: Anxiety Last Admin: 11/08/21 10:30 Dose: 1 mg Miscellaneous Information (Pneumonia Protocol Utilized 1 Each Misc) 1 each PO ONCE PRN PRN Reason: Per Protocol Miscellaneous Information (Potassium Replacement Protocol 1 Each Misc) 1 each MISCELLANE DAILY PRN; Protocol PRN Reason: Per Protocol Naloxone HCl (Naloxone 0.4 Mg/Ml 1 Ml Vial) 0.2 mg IV Q2M PRN PRN Reason: Opioid Reversal Pantoprazole Sodium (Pantoprazole 40 Mg/10 Ml Vial) 40 mg IV DAILY [facility] Last Admin: 11/08/21 08:14 Dose: 40 mg Sodium Bicarbonate (Sodium Bicarbonate Tab 650 Mg Tab) 650 mg PO DAILY [facility] Thiamine HCl (Thiamine 100 Mg/Ml 2 Ml Vial) 100 mg IVP DAILY [facility] Past medical history to include: Hypertension, hypothyroid, bipolar disorder, schizophrenia. excessive alcohol use in the past. No smoking. Psychosis, catatonic-like syndrome Social history: Heavy alcohol use in the past. . No smoking. Currently at [facility] Family history: Patient cannot tell Physical examination: VITAL SIGNS: 98, 91, 51, 110/53, 92% on BiPAP GENERAL: Lethargic. BiPAP EYES: Pupils equal. Conjunctiva normal. HEENT: External appearance of nose and ears normal, oral cavity dry. NG tube NECK: JVD unable to assess; masses not palpable. HEART: First and second heart sounds are normal; no edema. LUNGS: Respiratory rate increased; decreased breath sounds ABDOMEN: Soft, nontender, liver spleen not palpable, no masses palpable. PSYCH: Encephalopathic, unable to assess MUSCULOSKELETAL:No Clubbing/cyanosis;muscles-grossly intact. NEUROLOGICAL: [Cranial nerves grossly intact; no facial asymmetry, INVESTIGATIONS, reviewed in the clinical context: November 08: WBC 12.7 hemoglobin 11.4 sodium 153 potassium 4.5 BUN 60 creatinine 1.55 cortisol November 07: White count 20.7 hemoglobin 12 platelets 345 sodium 162 potassium 4.2. 58 creatinine 2.13 ammonia less than 9 COVID 19: Detected November 06: White count 9.5 hemoglobin 12.6 platelets 321 sodium 157 potassium 4.3 chloride 124 BUN 50 creatinine 2.04 UA positive for leukoesterase, WBC Pro-calcitonin 1.11 Chest x-ray film personally reviewed by me-scattered infiltrate EKG tracing personally reviewed by me-sinus rhythm Previous labs: BUN 9 creatinine 0.95 on June 2021 Assessment and plan: -Severe hypernatremia, from free water deficit from decreased oral intake: Slow to respond D5W at 100 mL an hour to continue -COVID 19 with pneumonitis/hypoxia: Slow to respond BiPAP. Dexamethasone -Possible secondary bacterial pneumonia : Slow to respond on Levaquin -Acute hypoxic respiratory failure from respiratory suppression multifactorial BiPAP / -Acute severe metabolic encephalopathy from renal failure and delirium: Slow to respond Treat underlying conditions -Schizoaffective disorder, bipolar type. Psychosis: Clozaril 200 mg by mouth daily 3 times a day Lamictal 25 mg twice a day Ativan 1 mg IV every 4 when necessary -Bipolar disorder See above medications -Acute kidney injury, possibly prerenal/ ATN D5W. -Diabetes mellitus type 2, on oral hypoglycemic Hold metformin Follow Accu-Cheks -Hypothyroid, Synthroid 100g a day -Hyperlipidemia Lipitor 40 mg daily at bedtime TriCor 134 mg before supper -Chronic DVT both lower extremity diagnosed on October 19 2020 [place]. -Full code Continue IV fluids. Oral medications through a G-tube. IV steroids. Pending EEG. On Levaquin. BiPAP. Follow labs closely.
[2021-11-08 17:51] LABS: Glucose,Whole Blood 211 mg/dL (70-110)
[2021-11-08] MEDS: THIAMINE 100 MG/ML 2 ML VIAL IVP SCH (17:57)
[2021-11-08 19:35] LABS: Calcium 9.3 mg/dL (8.4-10.2)
[2021-11-08] MEDS: ATORVASTATIN 40 MG TAB PO SCH (20:28)
[2021-11-08] MEDS ORDERED: LEVOFLOXACIN 750MG-D5W PMX 750 MG in DEXTROSE/WATER 1 150ML.BAG IVPB SCH (21:00)
[2021-11-08 23:27] LABS: Glucose,Whole Blood 171 mg/dL (70-110)
[2021-11-09] MEDS ORDERED: INSULIN ASPART (NovoLOG) 100 UNIT/ML VIAL SQ SCH
[2021-11-09] MEDS: DEXTROSE 5% IN WATER 1,000 ML IV SCH ×3 (01:36→18:04)
[2021-11-09] MEDS: DEXMEDETOMIDINE/0.9% NACL(PMX) 400 MCG in EMPTY BAG 1 BAG IV SCH ×3 (01:36→20:00)
[2021-11-09] MEDS: LEVOTHYROXINE 100 MCG TAB PO SCH (05:05)
[2021-11-09 05:20] LABS: Glucose,Whole Blood 192 mg/dL (70-110)
[2021-11-09] MEDS: INSULIN ASPART (NovoLOG) 100 UNIT/ML VIAL SQ SCH ×3 (05:25→18:04)
[2021-11-09 08:37] LABS: Basophils # (A) 0.1 k/uL (0-0.2); Basophils % (A) 0 %; Eosinophils % (A) 0 %; HCT 38.2 % (34.0-46.0); HGB 11.4 gm/dL (11.4-16.0); Hypochromasia Marked; Lymphocytes # (A) 0.5 k/uL (1.0-4.8); Lymphocytes % (A) 3 %; MCH 26.1 pg (25.0-35.0); MCHC 29.9 g/dL (31.0-37.0); MCV 87.3 fL (80.0-100.0); Mean Platelet Volume 9.5; Monocytes # (A) 0.5 k/uL (0-1.0); Monocytes % (A) 4 %; Neutrophils # (A) 13.5 k/uL (1.3-7.7); Neutrophils % (A) 92 %; Platelet Count 315 k/uL (150-450); RBC 4.38 m/uL (3.80-5.40); RDW 14.8 % (11.5-15.5); WBC 14.6 k/uL (3.8-10.6)
[2021-11-09 08:55] LABS: Calcium 9.1 mg/dL (8.4-10.2); Potassium 4.2 mmol/L (3.5-5.1)
[2021-11-09] MEDS ORDERED: SODIUM BICARBONATE TAB 650 MG TAB PO SCH (09:00)
--- NOTE | 2021-11-09 09:05 | P.PN ---
Subjective Patient is seen in follow-up for acute kidney injury and hypernatremia. Patient is maintained on D5W at 100 mL an hour. Remains on BiPAP. Sodium level and renal function improving. Vital signs are stable. General: Resting in bed. HEENT: On BiPAP. LUNGS: Breath sounds decreased. HEART: Rate and Rhythm are regular. ABDOMEN: Soft, no distention. EXTREMITITES: No edema. Objective - Vital Signs Vital signs: Vital Signs Temp 97.9 F 11/09/21 04:00 Pulse 55 L 11/09/21 07:00 Resp 37 H 11/09/21 07:00 BP 94/67 11/09/21 07:00 Pulse Ox 96 11/09/21 07:39 FiO2 80 11/09/21 07:37 Intake & Output 11/08/21 11/09/21 11/09/21 18:59 06:59 18:59 Intake Total 5421.439 4131.210 100 Output Total 530 1300 100 Balance 767.500 16.210 0 Weight 84 kg Intake: IV 1200 1100 100 Dextrose 5% in Water 1, 1200 1100 100 000 ml @ 100 mls/hr IV . Q10H [facility] Rx#:[id number] Intake, IV Titration 97.500 216.210 Amount Dexmedetomidine/0.9% NaCl 97.500 216.210 (Pmx) 400 mcg In Empty Bag 1 bag @ 0.2 MCG/KG/HR 4.763 mls/hr IV .Q21H [facility] Rx#:[id number] Output: Urine 530 1300 100 Other: Voiding Method Indwelling Catheter Indwelling Catheter - Labs CBC & Chem 7: 11/09/21 08:05 11/09/21 08:05 Labs: Abnormal Lab Results - Last 24 Hours (Table) 11/08/21 11/08/21 11/08/21 Range/Units 07:43 17:50 18:58 WBC (3.8-10.6) k/uL MCHC (31.0-37.0) g/dL Neutrophils # (1.3-7.7) k/uL Lymphocytes # (1.0-4.8) k/uL Sodium 153 H 152 H (137-145) mmol/L Chloride 119 H 116 H (98-107) mmol/L BUN 60 H 55 H (7-17) mg/dL Creatinine 1.55 H 1.45 H (0.52-1.04) mg/dL Glucose 168 H 217 H (74-99) mg/dL POC Glucose (mg/dL) 211 H (70-110) mg/dL Magnesium 2.8 H (1.6-2.3) mg/dL 11/08/21 11/09/21 11/09/21 Range/Units 23:25 05:18 08:05 WBC 14.6 H (3.8-10.6) k/uL MCHC 29.9 L (31.0-37.0) g/dL Neutrophils # 13.5 H (1.3-7.7) k/uL Lymphocytes # 0.5 L (1.0-4.8) k/uL Sodium (137-145) mmol/L Chloride (98-107) mmol/L BUN (7-17) mg/dL Creatinine (0.52-1.04) mg/dL Glucose (74-99) mg/dL POC Glucose (mg/dL) 171 H 192 H (70-110) mg/dL Magnesium (1.6-2.3) mg/dL 11/09/21 Range/Units 08:05 WBC (3.8-10.6) k/uL MCHC (31.0-37.0) g/dL Neutrophils # (1.3-7.7) k/uL Lymphocytes # (1.0-4.8) k/uL Sodium 149 H (137-145) mmol/L Chloride 117 H (98-107) mmol/L BUN 44 H (7-17) mg/dL Creatinine 1.27 H (0.52-1.04) mg/dL Glucose 197 H (74-99) mg/dL POC Glucose (mg/dL) (70-110) mg/dL Magnesium (1.6-2.3) mg/dL Microbiology - Last 24 Hours (Table) 11/07/21 00:50 Blood Culture - Preliminary Blood No Growth after 48 hours 11/07/21 00:40 Blood Culture - Preliminary Blood No Growth after 48 hours 11/06/21 21:25 Blood Culture - Preliminary Blood No Growth after 48 hours 11/07/21 17:00 Urine Culture - Final Urine,Catheterized Assessment and Plan Plan: Assessment: 1. Acute kidney injury secondary to ATN secondary to hypotension/sepsis. Baseline creatinine near 1 and was 2.13 on admission - 1.27 today. No hydronephrosis noted on kidney ultrasound. 2. Hypernatremia from lack of oral water intake. Improving with D5W. 3. Metabolic acidosis secondary to acute kidney injury and metformin. Improve d. On oral bicarb. 4. Acute hypoxic respiratory failure currently on BiPAP. 5. COVID-19 pneumonia. Plan: Maintain D5W at 100 mL an hour. Avoid nephrotoxins. Continue to monitor renal function and urine output. Repeat BMP at 6 PM. Cortisol level not low.
[2021-11-09] MEDS: PANTOPRAZOLE 40 MG/10 ML VIAL IV SCH (09:24)
[2021-11-09] MEDS: lamoTRIgine 25 MG TAB PO SCH ×2 (09:25→21:13)
[2021-11-09] MEDS: ASPIRIN 81 MG PO SCH (09:25)
[2021-11-09] MEDS: cloZAPine 100 MG TAB PO SCH ×3 (09:25→21:13)
[2021-11-09] MEDS: APIXABAN 5 MG TAB PO SCH (09:25)
[2021-11-09] MEDS: THIAMINE 100 MG/ML 2 ML VIAL IVP SCH (09:25)
[2021-11-09] MEDS: DEXAMETHASONE SOD PHOSPHATE 10 MG/ML 1 ML VIAL IVP SCH (09:25)
--- NOTE | 2021-11-09 09:39 | P.PN ---
Subjective Progress Note Date: 11/09/21 Principal diagnosis: Pneumonia Pulmonary consult dated 11/07/2021. 50-year-old female, who is brought in by the [place] emergency services. She apparently resides at [facility] in that area. She apparently has a history of schizophrenia, as well as a history of recent infection with coronavirus. The patient was brought in because of mental status changes, and also low saturations. Apparently the patient was evaluated there and thought to have pneumonia. The patient was treated with Levaquin here. Currently, she seen in the emergency room, room 11. She is on 15 L high flow oxygen. She's getting saline at 75 mL an hour. I did have the opportunity to speak to the patient's , name Art. He was able to provide some history. The patient is at the shelter as mentioned above, but is unable to prepare food for herself. Her mental status varies hour to hour and day today according to him. The patient herself can give me no history. She sees been here in the emergency department, she's been moaning and groaning. Her chest x-ray shows bilateral patchy infiltrates. A blood gas was done and showed a pO2 of 89, pCO2 35, and pH is 7.332. She apparently has a history of diabetes, hypertension, hyperlipidemia, and hypothyroidism. White count 11.5, hemoglobin 12.6, hematocrit 41.3, with a normal platelet count. Sodium 157, potassium 4.3, chlorides 124, CO2 19, anion gap 14, BUN 50, creatinine 2.04. Her lactic acid was 1.2. Pro-calcitonin level is pending. Urine is yellow and cloudy. There is 1+ protein. Trace blood. Small positive leukocyte esterase, 7 RBCs, 9 WBCs, and many bacteria. Chest x-ray shows patchy bilateral infiltrates. Progress note dated 11/08/2021. 50-year-old female seen in the emergency department yesterday. She was brought in from one of the local nursing homes, with complaints of mental status changes, low saturations, and possibly pneumonia. The patient was initially seen in the ER, and then transferred to the intensive care, where she was seen yesterday and today, in room 254. She's currently on BiPAP. BiPAP settings are 12/5 and 65%. He is currently receiving Levaquin. Microbiologic cultures are negative. She did test positive for coronavirus infection. She's getting D5W 100 mL an hour Precedex at 0.5 mcg/kg per hour. White count was 12.7, hemoglobin 11.4, hematocrit 37.2, and platelet count 270,000. Sodium 153, potassium 4.5, chlorides 119, CO2 27, with a BUN and creatinine of 60, and 1.55. Chest x-ray continues to show bilateral airspace disease. Progress note dated 11/09/2021. 50-year-old female seen in consultation 2 days ago. She was brought in from one of the local nursing homes with complaints of mental status changes, possible pneumonia, and low saturations. The patient was seen initially in the emergency department, and was admitted to the intensive care unit. She remains on BiPAP, with settings of 12/5 and 80%. She's getting dexmedetomidine at 0.5 mcg/kg/h. She's getting D5W at 100 mL an hour. Today, we will attempt to get her off of dexmedetomidine, and replace it with Haldol IM. According to the nurse, she had a very uneventful night. White count 14.6, hemoglobin 11.4, hematocrit 38.2, and platelet count 315,000. Sodium 149, potassium 4.2, chlorides 117, CO2 24, BUN 44, and creatinine 1.27. Calcium is normal. Microbiologic studies are thus far negative. No chest x-ray today. CAT scan of the brain did not show anyth ing acute. Objective - Vital Signs Vital signs: Vital Signs Temp 97.9 F 11/09/21 04:00 Pulse 55 L 11/09/21 07:00 Resp 37 H 11/09/21 07:00 BP 94/67 11/09/21 07:00 Pulse Ox 96 11/09/21 07:39 FiO2 80 11/09/21 07:37 Intake & Output 11/08/21 11/09/21 11/09/21 18:59 06:59 18:59 Intake Total 1764.196 3752.210 100 Output Total 530 1300 100 Balance 767.500 16.210 0 Weight 84 kg Intake: IV 1200 1100 100 Dextrose 5% in Water 1, 1200 1100 100 000 ml @ 100 mls/hr IV . Q10H [facility] Rx#:[id number] Intake, IV Titration 97.500 216.210 Amount Dexmedetomidine/0.9% NaCl 97.500 216.210 (Pmx) 400 mcg In Empty Bag 1 bag @ 0.2 MCG/KG/HR 4.763 mls/hr IV .Q21H [facility] Rx#:[id number] Output: Urine 530 1300 100 Other: Voiding Method Indwelling Catheter Indwelling Catheter - Exam Currently on BiPAP, stable, without agitation. HEENT examination is grossly unremarkable. . Neck supple. Full range of motion. No adenopathy thyromegaly or neck vein distention. Cardiovascular examination reveals regular rhythm rate. S1-S2 normal. No S3 or S4. No discernible murmur noted. Heart sounds are distant. Heart rate 55 bpm. Lungs reveal coarse bilateral rhonchi. Breath sounds equal. No crackles. No wheezes. Saturations are 96 % on BiPAP. Abdomen soft bowel sounds are heard. No masses or tenderness. Extremities are intact. No cyanosis clubbing or edema. Skin is without rash or lesion. Neurologic examination is very difficult to assess. - Labs CBC & Chem 7: 11/09/21 08:05 11/09/21 08:05 Labs: Abnormal Lab Results - Last 24 Hours (Table) 11/08/21 11/08/21 11/08/21 Range/Units 17:50 18:58 23:25 WBC (3.8-10.6) k/uL MCHC (31.0-37.0) g/dL Neutrophils # (1.3-7.7) k/uL Lymphocytes # (1.0-4.8) k/uL Sodium 152 H (137-145) mmol/L Chloride 116 H (98-107) mmol/L BUN 55 H (7-17) mg/dL Creatinine 1.45 H (0.52-1.04) mg/dL Glucose 217 H (74-99) mg/dL POC Glucose (mg/dL) 211 H 171 H (70-110) mg/dL 11/09/21 11/09/21 11/09/21 Range/Units 05:18 08:05 08:05 WBC 14.6 H (3.8-10.6) k/uL MCHC 29.9 L (31.0-37.0) g/dL Neutrophils # 13.5 H (1.3-7.7) k/uL Lymphocytes # 0.5 L (1.0-4.8) k/uL Sodium 149 H (137-145) mmol/L Chloride 117 H (98-107) mmol/L BUN 44 H (7-17) mg/dL Creatinine 1.27 H (0.52-1.04) mg/dL Glucose 197 H (74-99) mg/dL POC Glucose (mg/dL) 192 H (70-110) mg/dL Microbiology - Last 24 Hours (Table) 11/07/21 00:50 Blood Culture - Preliminary Blood No Growth after 48 hours 11/07/21 00:40 Blood Culture - Preliminary Blood No Growth after 48 hours 11/06/21 21:25 Blood Culture - Preliminary Blood No Growth after 48 hours 11/07/21 17:00 Urine Culture - Final Urine,Catheterized Assessment and Plan Assessment: Acute hypoxemic respiratory failure secondary to bilateral pneumonia. History of recent coronavirus infection. Acute mental status changes, presumably secondary to infection. Hypernatremia. History of hypertension. History of hyperlipidemia. History of diabetes mellitus. History of hypothyroidism. History of schizophrenia. Prior history of tobacco use. History of heavy alcohol use. History of marijuana use. Plan: Plan dated 11/07/2021. The patient's currently receiving Levaquin for her pneumonia. Her saline IV is running at 75 mL an hour. Her IV should be converted to dextrose, at 100 mL an hour. Blood and urine culture should be done if not or ready done. I did speak to the . He gave me a limited information. We spoke briefly about CODE STATUS. I don't have a good sense as to what he or she would want, should her situation declined. She may need admission to the intensive care unit. Labs, x-rays, and medications are reviewed. Prognosis is guarded. Plan dated 11/08/2021. The patient is currently on dexmedetomidine, and her agitation is much better controlled. She was seen by psychiatry. Their input is appreciated. She remains on D5W. She had severe hypernatremia. Her sodium is down to 153. She did test positive for coronavirus infection. She has ready on a factor X a inhibitor. We added Decadron 6 mg IV daily. The patient cannot take anything by mouth at this time. We will attempt to reduce the dexmedetomidine, and reevaluate her neurologic status. Additional recommendations and suggestions are forthcoming. Prognosis is guarded. Plan dated 11/09/2021. The patient remains on BiPAP therapy. We'll attempt to wean the dexmedetomidine off, and instead use Haldol, IM. Labs, x-rays, and medications are reviewed. The patient was stable overnight. We will get a chest x-ray in the morning. She remains on Levaquin. Microbiologic studies are thus far negative. Overall prognosis remains very guarded. Time with Patient: Greater than 30
--- NOTE | 2021-11-09 09:40 | CDI ---
Documentation Clarification Form Date: 11/09/2021 09:18:44 AM From: Monica Felix RN CCDS Admit Date: 11/06/2021 07:45:00 PM Patient Name: Kelly Way Visit Number: [id number] Discharge Date: ATTENTION: The Clinical Documentation Specialists (CDI) and [facility] Coding Staff appreciate your assistance in clarifying documentation. Please respond to the clarification below the line at the bottom and electronically sign. The CDI & [facility] Coding staff will review the response and follow-up if needed. Please note: Queries are made part of the Legal Health Record. If you have any questions, please contact the author of this message via ITS. Dr. Dakota Carracso The patient presented with the following clinical indicators. Additional clarification regarding the etiology/cause of the clinical indicators is requested. History/Risk Factors: 50-year-old female presents to the ED via EMS from [facility] (patient resides at [facility]) Was diagnosed with COVID 19 a few days ago and became increasingly lethargic and hypernatremia. Medical History: HTN, Hypothyroid, Bipolar disorder and schizophrenia. 11/07, H&P. Clinical Indicators: 11/07 Admitting diagnosis: COVID 9 with pneumonitis, Acute hypoxic respiratory failure, possible secondary bacterial pneumonia and severe hypernatremia. 11/07, Nephrology consult: Acute kidney injury secondary to ATN secondary to hypotension/sepsis. WBC: 11/06 11.5; 11/07 20.7 Neutrophils: 11/06 10.7 COVID PC: 11/07 Detected NA: 11/06 157; 11/07 162 Vitals signs: B/P 122/82; HR 76; Temp 98.5F Axillary; RR 20; SpO2 95% 4L Treatment: 11/07 current Dextrose/water dextrose 5% IV ; 11/07 Sodium BiCarb 8.4% IV x 1; 11/07 11/08 Sodium Bicarbonate 650mg PO TID Antibiotics:11/06 20 Levaquin 750mg IVPB In your professional opinion, please clarify if these findings signify one of the following conditions: [ ] Sepsis POA [ ] Sepsis Ruled out [ ] Other, please specify [ ] Unable to determine SIRS Criteria: 2 or more of the following may indicate SIRS -Temperature < 96.8F (36C) or > 101.0F (38.3C) -Heart Rate > 90 bpm -Respiratory Rate > 20 breaths/min or PaCO2 < 32 mmHg -White Blood Cell Count > 12,000 or < 4,000 cells/mm3 or > 10% bands Sepsis, POA (Template Last Reviewed: June 2020) MTDD
[2021-11-09] MEDS: HALOPERIDOL LACTATE 5 MG/ML 1 ML VIAL IM PRN ×2 (09:54→13:35)
[2021-11-09] MEDS: LORazepam 2 MG/ML INJ IV PRN (10:39)
[2021-11-09 11:15] LABS: Glucose,Whole Blood 139 mg/dL (70-110)
--- NOTE | 2021-11-09 11:56 | P.PN ---
Progress Note - Text Progress Note Date: 11/09/21 Chief Complaint: Decreased mentation History of presenting complaint: This is a 50-year-old patient, who follows with Dr. Saenz . Resident of [facility].. known history of bipolar disorder and schizophrenia. 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 Patient was here in May 2021. Severe hypernatremia, acute kidney injury metabolic encephalopathy. 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 Low-dose and high-dose dexamethasone test was put on telemetry specific. Does of Synthroid was increased. Patient now brought in from [facility]. Patient was diagnosed with COVID 19 a few days ago. Was on Paxil of it. Patient became increasingly lethargic. Patient is felt to secondary bacterial pneumonia. Given Levaquin and transferred here. Also noted. Significantly hypernatremic. Patient admitted to ICU. Consultation is made to it administrator, nephrology, psychiatry, neurology. This morning patient int ICU. On a Precedex drip. BiPAP. Lethargic. Not able to give any history. Admitted with COVID 19 pneumonitis, hypoxia, possibly secondary bacterial pneumonia, severe hyponatremia, severe metabolic encephalopathy, acute kidney injury. On IV Precedex. IV fluids. Levaquin. EEG. November 08: ICU: On BiPAP 12/5. IV Precedex. Lethargic. IV Levaquin. Oral bicarbonate. Medications through NG tube. EEG pending. November 09: ICU: On BiPAP 12/5. Off Precedex. Remains lethargic a bit restless. Active Medications Albuterol Sulfate (Albuterol Hfa Inhaler) 2 puff INHALATION RT-QID PRN PRN Reason: Shortness Of Breath Or Wheezing Apixaban (Apixaban 5 Mg Tab) 5 mg PO DAILY@0900 [facility]; Protocol Last Admin: 11/09/21 09:25 Dose: 5 mg Aspirin (Aspirin 81 Mg) 81 mg PO DAILY@0900 [facility] Last Admin: 11/09/21 09:25 Dose: 81 mg Atorvastatin Calcium (Atorvastatin 40 Mg Tab) 40 mg PO HS@2100 [facility] Last Admin: 11/08/21 20:28 Dose: 40 mg Clozapine (Clozapine 100 Mg Tab) 200 mg PO TID@0900,1300,2100 [facility] Stop: 11/15/21 23:00 Last Admin: 11/09/21 09:25 Dose: 200 mg Dexamethasone Sodium Phosphate (Dexamethasone Sod Phosphate 10 Mg/Ml 1 Ml Vial) 6 mg IVP DAILY [facility] Last Admin: 11/09/21 09:25 Dose: 6 mg Haloperidol Lactate (Haloperidol Lactate 5 Mg/Ml 1 Ml Vial) 4 mg IM Q4HR PRN PRN Reason: Agitation or Acute Psychosis Last Admin: 11/09/21 09:54 Dose: 4 mg Dextrose/Water (Dextrose 5%-Water Iv Soln) 1,000 mls @ 100 mls/hr IV .Q10H [facility]IS[facility] Last Admin: 11/09/21 09:26 Dose: 100 mls/hr Dexmedetomidine HCl 400 mcg/ (IV Solution) 100 mls @ 4.763 mls/hr IV .Q21H [facility]; Protocol Last Titration: 11/09/21 06:00 Dose: 0.9 mcg/kg/hr, 21.432 mls/hr Levofloxacin 750 mg/ IV (Solution) 150 mls @ 100 mls/hr IVPB Q24H [facility]; Protocol Insulin Aspart (Insulin Aspart (Novolog) 100 Unit/Ml Vial) 0 unit SQ Q6HR [facility]; Protocol Last Admin: 11/09/21 05:25 Dose: 2 unit Lamotrigine (Lamotrigine 25 Mg Tab) 25 mg PO BID@0900,2100 [facility] Last Admin: 11/09/21 09:25 Dose: 25 mg Levothyroxine Sodium (Levothyroxine 100 Mcg Tab) 100 mcg PO DAILY@0600 [facility] Last Admin: 11/09/21 05:05 Dose: 100 mcg Lorazepam (Lorazepam 2 Mg/Ml Inj) 1 mg IV Q4HR PRN PRN Reason: Anxiety Last Admin: 11/09/21 10:39 Dose: 1 mg Miscellaneous Information (Pneumonia Protocol Utilized 1 Each Misc) 1 each PO ONCE PRN PRN Reason: Per Protocol Miscellaneous Information (Potassium Replacement Protocol 1 Each Misc) 1 each MISCELLANE DAILY PRN; Protocol PRN Reason: Per Protocol Naloxone HCl (Naloxone 0.4 Mg/Ml 1 Ml Vial) 0.2 mg IV Q2M PRN PRN Reason: Opioid Reversal Pantoprazole Sodium (Pantoprazole 40 Mg/10 Ml Vial) 40 mg IV DAILY [facility] Last Admin: 11/09/21 09:24 Dose: 40 mg Sodium Bicarbonate (Sodium Bicarbonate Tab 650 Mg Tab) 650 mg PO DAILY [facility] Last Admin: 11/09/21 09:24 Dose: 650 mg Thiamine HCl (Thiamine 100 Mg/Ml 2 Ml Vial) 100 mg IVP DAILY [facility] Last Admin: 11/09/21 09:25 Dose: 100 mg Past medical history to include: Hypertension, hypothyroid, bipolar disorder, schizophrenia. excessive alcohol use in the past. No smoking. Psychosis, catatonic-like syndrome Social history: Heavy alcohol use in the past. . No smoking. Currently at [facility] Family history: Patient cannot tell Physical examination: VITAL SIGNS: 98.1, 54, 30, 95/ 65, 95% on BiPAP 80% GENERAL: Delirious, restless. BiPAP EYES: Pupils equal. Conjunctiva normal. HEENT: External appearance of nose and ears normal, oral cavity dry. NG tube NECK: JVD unable to assess; masses not palpable. HEART: First and second heart sounds are normal; no edema. LUNGS: Respiratory rate increased; decreased breath sounds ABDOMEN: Soft, nontender, liver spleen not palpable, no masses palpable. PSYCH: Encephalopathic, unable to assess MUSCULOSKELETAL:No Clubbing/cyanosis;muscles-grossly intact. NEUROLOGICAL: [Cranial nerves grossly intact; no facial asymmetry, moving all 4 limbs INVESTIGATIONS, reviewed in the clinical context: November 09: WBC 14.6 hemoglobin 11.4 2149 potassium 4.2 BUN 44 creatinine 1.27 November 08: WBC 12.7 hemoglobin 11.4 sodium 153 potassium 4.5 BUN 60 creatinine 1.55 cortisol 18 November 07: White count 20.7 hemoglobin 12 platelets 345 sodium 162 potassium 4.2. 58 creatinine 2.13 ammonia less than 9 COVID 19: Detected November 06: White count 9.5 hemoglobin 12.6 platelets 321 sodium 157 potassium 4.3 chloride 124 BUN 50 creatinine 2.04 UA positive for leukoesterase, WBC Pro-calcitonin 1.11 Chest x-ray film personally reviewed by me-scattered infiltrate EKG tracing personally reviewed by me-sinus rhythm Previous labs: BUN 9 creatinine 0.95 on June 2021 Assessment and plan: -Severe hypernatremia, from free water deficit from decreased oral intake: Slight improvement Increase D5W at 125 mL an hour -COVID 19 with pneumonitis/hypoxia: Slow to respond BiPAP. Dexamethasone -Possible secondary bacterial pneumonia : Slow to respond on Levaquin -Acute hypoxic respiratory failure from respiratory suppression multifactorial BiPAP 04/23 -Acute severe metabolic encephalopathy from renal failure and delirium: Slow to respond Treat underlying conditions -Schizoaffective disorder, bipolar type. Psychosis: Clozaril 200 mg by mouth daily 3 times a day Lamictal 25 mg twice a day Ativan 1 mg IV every 4 when necessary -Bipolar disorder See above medications -Acute kidney injury, possibly prerenal/ ATN : Some improvement D5W. -Diabetes mellitus type 2, on oral hypoglycemic Hold metformin Follow Accu-Cheks -Hypothyroid, Synthroid 100g a day -Hyperlipidemia Lipitor 40 mg daily at bedtime TriCor 134 mg before supper -Chronic DVT both lower extremity diagnosed on October 19 2020 [place]. -Full code Increase D5W to 1 25 mL an hour.. Oral medications through a G-tube. Dexamethasone. . Levaquin. BiPAP. Follow labs closely.
--- NOTE | 2021-11-09 15:09 | P.PN ---
Subjective Progress Note Date: 11/09/21 The patient is seen at bedside and per her nurse continues to be confused. EEG could not be obtained since on BiPAP. Objective - Vital Signs Vital signs: Vital Signs Temp 98.4 F 11/09/21 12:00 Pulse 94 11/09/21 13:00 Resp 51 H 11/09/21 13:00 BP 102/25 11/09/21 13:00 Pulse Ox 96 11/09/21 13:00 FiO2 80 11/09/21 12:00 Intake & Output 11/08/21 11/09/21 11/09/21 18:59 06:59 18:59 Intake Total 6929.944 3308.210 898.579 Output Total 530 1300 415 Balance 767.500 16.210 483.579 Weight 84 kg Intake: IV 1200 1100 850 Dextrose 5% in Water 1, 1200 1100 850 000 ml @ 125 mls/hr IV . Q8H [facility] Rx#:[id number] Intake, IV Titration 97.500 216.210 48.579 Amount Dexmedetomidine/0.9% NaCl 97.500 216.210 48.579 (Pmx) 400 mcg In Empty Bag 1 bag @ 0.2 MCG/KG/HR 4.763 mls/hr IV .Q21H [facility] Rx#:[id number] Output: Urine 530 1300 415 Other: Voiding Method Indwelling Catheter Indwelling Catheter Indwelling Catheter - Exam GENERAL: The patient is lying in bed and seems in slight distress is not in acute distress. HENT: Supple neck. LUNG: Tachypneic and is on BiPAP NEUROLOGICAL: Limited. Higher mental function: The patient is stupor. She is not following command or verbally responsive. Is moaning. Cranial nerves:I had to manually open her eyes and primary gaze is midline. The pupils are round (2mm) and slugghishly reactive to light. No facial weakness but hard to ascertain because of face mask. Otherwise rest is limited. Motor: The strength is hard to assess because of her condition. But moving her lower and upper extremities on her own spontaneously above gravity. Slightly decrease tone throughout. Normal bulk. Cerebellum: Unable to assess. Sensation: Could not assess light touch but seems to have intact to painful stimuli. Reflexes (right/left): 1+ throughout. Plantars are mute bilaterally. Some of the work-up in our facility during this visit consisted of: TSH is less than 0.015 but the free T4 is 1.49 Ammonia level is less than 9 Is reported as no acute intracranial abnormality or gross space-occupying lesion by this nonenhanced computed tomography scan. Brain volume loss changes more than expected for the patient's age. I personally reviewed the CT of the head and I agree with the report. - Labs CBC & Chem 7: 11/09/21 08:05 11/09/21 08:05 Labs: Abnormal Lab Results - Last 24 Hours (Table) 11/08/21 11/08/21 11/08/21 Range/Units 17:50 18:58 23:25 WBC (3.8-10.6) k/uL MCHC (31.0-37.0) g/dL Neutrophils # (1.3-7.7) k/uL Lymphocytes # (1.0-4.8) k/uL Sodium 152 H (137-145) mmol/L Chloride 116 H (98-107) mmol/L BUN 55 H (7-17) mg/dL Creatinine 1.45 H (0.52-1.04) mg/dL Glucose 217 H (74-99) mg/dL POC Glucose (mg/dL) 211 H 171 H (70-110) mg/dL 11/09/21 11/09/21 11/09/21 Range/Units 05:18 08:05 08:05 WBC 14.6 H (3.8-10.6) k/uL MCHC 29.9 L (31.0-37.0) g/dL Neutrophils # 13.5 H (1.3-7.7) k/uL Lymphocytes # 0.5 L (1.0-4.8) k/uL Sodium 149 H (137-145) mmol/L Chloride 117 H (98-107) mmol/L BUN 44 H (7-17) mg/dL Creatinine 1.27 H (0.52-1.04) mg/dL Glucose 197 H (74-99) mg/dL POC Glucose (mg/dL) 192 H (70-110) mg/dL 11/09/21 Range/Units 11:13 WBC (3.8-10.6) k/uL MCHC (31.0-37.0) g/dL Neutrophils # (1.3-7.7) k/uL Lymphocytes # (1.0-4.8) k/uL Sodium (137-145) mmol/L Chloride (98-107) mmol/L BUN (7-17) mg/dL Creatinine (0.52-1.04) mg/dL Glucose (74-99) mg/dL POC Glucose (mg/dL) 139 H (70-110) mg/dL Microbiology - Last 24 Hours (Table) 11/07/21 00:50 Blood Culture - Preliminary Blood No Growth after 48 hours 11/07/21 00:40 Blood Culture - Preliminary Blood No Growth after 48 hours 11/06/21 21:25 Blood Culture - Preliminary Blood No Growth after 48 hours 11/07/21 17:00 Urine Culture - Final Urine,Catheterized Assessment and Plan Assessment: Encephalopathy seems due to multifactorial: COVID-19 pneumonia. Also component of metabolic encephalopathy (hypernatremia, JAYLA). 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 meningoencephalitis History of seizure and she had a seizure about 6-8 years ago (blank stares) while ?reported GTC on 03/15/2021 (but her 2.5 hour EEG and routine EEG was negative for seizure or epileptiform discharges) Acute hypoxemic respiratory failure secondary due to pneumonia Acute hypernatremia--trending down JAYLA--trending down Recent caldwell virus infection History of diabetes History of hyper-thousand Schizoaffective disorder Primary history of tobacco use History of heavy alcohol use History of marijuana use Plan: An EEG is ordered by the primary team and is pending (cannot be performed at this time since on BiPAP). Continue thiamine 100 mg IV daily Every 2 neuro checks Patient is on Eliquis. I spoke with the patient's regarding her condition via phone and notified him that my suspicion of meningeal encephalitis is very low but a lumbar puncture can be helpful but he stated he does not want to pursue with lumbar puncture. I will obtain repeat CT head if continues to be confused. Nephrology team is consulted Psychiatry team is consulted We'll defer the rest of the medical management to the primary and ICU team Patient condition is very guarded. The plan is discussed with the patient's nurse and psychiatry team. Breezy Orozco M.D. Neuro-hospital Time with Patient: Less than 30
[2021-11-09 18:01] LABS: Glucose,Whole Blood 208 mg/dL (70-110)
[2021-11-09 18:20] LABS: Calcium 9.2 mg/dL (8.4-10.2); Potassium 4.1 mmol/L (3.5-5.1)
[2021-11-09] MEDS: ATORVASTATIN 40 MG TAB PO SCH (21:13)
[2021-11-09] MEDS: LEVOFLOXACIN 750MG-D5W PMX 750 MG in DEXTROSE/WATER 1 150ML.BAG IVPB SCH (21:13)
[2021-11-10 00:09] LABS: Glucose,Whole Blood 187 mg/dL (70-110)
[2021-11-10] MEDS: INSULIN ASPART (NovoLOG) 100 UNIT/ML VIAL SQ SCH ×4 (00:13→18:06)
[2021-11-10] MEDS: DEXTROSE 5% IN WATER 1,000 ML IV SCH ×4 (00:19→23:00)
[2021-11-10] MEDS: DEXMEDETOMIDINE/0.9% NACL(PMX) 400 MCG in EMPTY BAG 1 BAG IV SCH ×5 (01:13→22:20)
[2021-11-10 05:59] LABS: Glucose,Whole Blood 164 mg/dL (70-110)
[2021-11-10] MEDS: LEVOTHYROXINE 100 MCG TAB PO SCH (06:02)
[2021-11-10 06:21] LABS: HCT 38.1 % (34.0-46.0); HGB 11.2 gm/dL (11.4-16.0); Hypochromasia Marked; MCH 25.9 pg (25.0-35.0); MCHC 29.5 g/dL (31.0-37.0); MCV 87.9 fL (80.0-100.0); Mean Platelet Volume 8.9; Platelet Count 298 k/uL (150-450); RBC 4.34 m/uL (3.80-5.40); RDW 14.9 % (11.5-15.5); WBC 15.2 k/uL (3.8-10.6)
[2021-11-10 06:33] LABS: Calcium 9.3 mg/dL (8.4-10.2)
[2021-11-10] MEDS: ALBUTEROL HFA INHALER INHALATION PRN ×2 (07:07→11:07)
--- NOTE | 2021-11-10 08:21 | P.PN ---
Subjective Patient is seen in follow-up for acute kidney injury and hypernatremia. Patient is maintained on D5W at 125 mL an hour. Remains on BiPAP. Sodium level 150. Oral intake remains poor. Renal function improving. Vital signs are stable. General: Resting in bed. HEENT: On BiPAP. Has NG tube. Exam discussed with the nurse. Objective - Vital Signs Vital signs: Vital Signs Temp 98.1 F 11/10/21 04:00 Pulse 55 L 11/10/21 05:30 Resp 34 H 11/10/21 05:30 BP 103/56 11/10/21 05:30 Pulse Ox 95 11/10/21 05:30 FiO2 80 11/10/21 07:08 Intake & Output 11/09/21 11/10/21 11/10/21 18:59 06:59 18:59 Intake Total 4495.391 5259.518 141.074 Output Total 765 1375 125 Balance 527.470 108.518 16.074 Weight 82.8 kg Intake: IV 1225 1125 125 Dextrose 5% in Water 1, 1225 1125 125 000 ml @ 150 mls/hr IV . Q6H40M [facility]ISSE Rx#:[id number] Intake, IV Titration 67.470 358.518 16.074 Amount Dexmedetomidine/0.9% NaCl 67.470 208.518 16.074 (Pmx) 400 mcg In Empty Bag 1 bag @ 0.2 MCG/KG/HR 4.763 mls/hr IV .Q21H [facility] Rx#:[id number] Levofloxacin 750Mg-D5w 150 Pmx 750 mg In Dextrose/ Water 1 150ml.bag @ 100 mls/hr IVPB Q24H [facility]IS[facility] Rx#: [id number] Output: Urine 765 1375 125 Other: Voiding Method Indwelling Catheter Indwelling Catheter - Labs CBC & Chem 7: 11/10/21 06:10 11/10/21 06:10 Labs: Abnormal Lab Results - Last 24 Hours (Table) 11/09/21 11/09/21 11/09/21 Range/Units 08:05 08:05 11:13 WBC 14.6 H (3.8-10.6) k/uL Hgb (11.4-16.0) gm/dL MCHC 29.9 L (31.0-37.0) g/dL Neutrophils # 13.5 H (1.3-7.7) k/uL Lymphocytes # 0.5 L (1.0-4.8) k/uL Sodium 149 H (137-145) mmol/L Chloride 117 H (98-107) mmol/L BUN 44 H (7-17) mg/dL Creatinine 1.27 H (0.52-1.04) mg/dL Glucose 197 H (74-99) mg/dL POC Glucose (mg/dL) 139 H (70-110) mg/dL 11/09/21 11/09/21 11/10/21 Range/Units 17:41 17:59 00:07 WBC (3.8-10.6) k/uL Hgb (11.4-16.0) gm/dL MCHC (31.0-37.0) g/dL Neutrophils # (1.3-7.7) k/uL Lymphocytes # (1.0-4.8) k/uL Sodium 149 H (137-145) mmol/L Chloride 115 H (98-107) mmol/L BUN 43 H (7-17) mg/dL Creatinine 1.33 H (0.52-1.04) mg/dL Glucose 223 H (74-99) mg/dL POC Glucose (mg/dL) 208 H 187 H (70-110) mg/dL 11/10/21 11/10/21 11/10/21 Range/Units 05:57 06:10 06:10 WBC 15.2 H (3.8-10.6) k/uL Hgb 11.2 L (11.4-16.0) gm/dL MCHC 29.5 L (31.0-37.0) g/dL Neutrophils # (1.3-7.7) k/uL Lymphocytes # (1.0-4.8) k/uL Sodium 150 H (137-145) mmol/L Chloride 118 H (98-107) mmol/L BUN 36 H (7-17) mg/dL Creatinine 1.13 H (0.52-1.04) mg/dL Glucose 172 H (74-99) mg/dL POC Glucose (mg/dL) 164 H (70-110) mg/dL Microbiology - Last 24 Hours (Table) 11/07/21 00:40 Blood Culture - Preliminary Blood No Growth after 72 hours 11/07/21 00:50 Blood Culture - Preliminary Blood No Growth after 72 hours 11/06/21 21:25 Blood Culture - Preliminary Blood No Growth after 72 hours 11/08/21 18:47 Blood Culture - Preliminary Blood No Growth after 24 hours Assessment and Plan Plan: Assessment: 1. Acute kidney injury secondary to ATN secondary to hypotension/sepsis. Baseline creatinine near 1 and was 2.13 on admission - 1.13 today. No hydronephrosis noted on kidney ultrasound. 2. Hypernatremia from lack of oral water intake. Improving with D5W. 3. Metabolic acidosis secondary to acute kidney injury and metformin. Improved. On oral bicarb. 4. Acute hypoxic respiratory failure currently on BiPAP. 5. COVID-19 pneumonia. Plan: Increase rate of D5W to 150 mL an hour. Tube feeds may be started later today. Avoid nephrotoxins. Continue to monitor renal function and urine output. Repeat sodium at 6 PM. Cortisol level not low.
--- NOTE | 2021-11-10 08:25 | XR ---
EXAMINATION TYPE: XR chest 1V portable DATE OF EXAM: 11/10/2021 COMPARISON: Chest x-ray 11/08/2021 HISTORY: Covid pneumonia TECHNIQUE: Single frontal view of the chest is obtained. FINDINGS: NG tube is in place, side-port is near the level of the gastroesophageal junction. Bilater al airspace disease persists. No evident pneumothorax or pleural effusion. Cardiac mediastinal silhou ette within normal limits accounting for technique, rotation. There are overlying leads. IMPRESSION: Findings consistent with patient's history of pneumonia.
[2021-11-10] MEDS: APIXABAN 5 MG TAB PO SCH (08:47)
[2021-11-10] MEDS: ASPIRIN 81 MG PO SCH (08:47)
[2021-11-10] MEDS: lamoTRIgine 25 MG TAB PO SCH ×2 (08:48→20:31)
[2021-11-10] MEDS: DEXAMETHASONE SOD PHOSPHATE 10 MG/ML 1 ML VIAL IVP SCH (08:48)
[2021-11-10] MEDS: cloZAPine 100 MG TAB PO SCH ×3 (08:48→20:31)
[2021-11-10] MEDS: PANTOPRAZOLE 40 MG/10 ML VIAL IV SCH (08:49)
[2021-11-10] MEDS: THIAMINE 100 MG/ML 2 ML VIAL IVP SCH (08:49)
--- NOTE | 2021-11-10 10:25 | CT ---
EXAMINATION TYPE: CT brain wo con DATE OF EXAM: 11/10/2021 COMPARISON: 11/08/21 HISTORY: altered mental status CT DLP: 1099.[address] of the brain was performed. The ventricles, basal cisterns and sulci overlying the cerebral convexities demonstrate mild enlargem ent. There is no evidence for intracranial hemorrhage or sulcal effacement. There is decreased attenuation about the periventricular white matter and deep white matter of both c erebral hemispheres, compatible with chronic small vessel ischemia. Differential diagnosis does inclu de demyelination. No mass effects are seen.No midline shift. Osseous calvarium is intact. If symptoms persist consider MRI. IMPRESSION: 1. Age related atrophic and chronic small vessel ischemic change without acute intracranial process s een at this time.
--- NOTE | 2021-11-10 10:42 | P.PN ---
Subjective Progress Note Date: 11/10/21 50-year-old female, who is brought in by the [place] emergency services. She apparently resides at [facility] in that area. She apparently has a history of schizophrenia, as well as a history of recent infection with coronavirus. The patient was brought in because of mental status changes, and also low saturations. Apparently the patient was evaluated there and thought to have pneumonia. The patient was treated with Levaquin here. Currently, she seen in the emergency room, room 11. She is on 15 L high flow oxygen. She's getting saline at 75 mL an hour. I did have the opportunity to speak to the patient's , name Art. He was able to provide some history. The patient is at the long-term as mentioned above, but is unable to prepare food for herself. Her mental status varies hour to hour and day today according to him. The patient herself can give me no history. She sees been here in the emergency department, she's been moaning and groaning. Her chest x-ray shows bilateral patchy infiltrates. A blood gas was done and showed a pO2 of 89, pCO2 35, and pH is 7.332. She apparently has a history of diabetes, hypertension, hyperlipidemia, and hypothyroidism. White count 11.5, hemoglobin 12.6, hematocrit 41.3, with a normal platelet count. Sodium 157, potassium 4.3, chlorides 124, CO2 19, anion gap 14, BUN 50, creatinine 2.04. Her lactic acid was 1.2. Pro-calcitonin level is pending. Urine is yellow and cloudy. There is 1+ protein. Trace blood. Small positive leukocyte esterase, 7 RBCs, 9 WBCs, and many bacteria. Chest x-ray shows patchy bilateral infiltrates. Progress note dated 11/08/2021. 50-year-old female seen in the emergency department yesterday. She was brought in from one of the local nursing homes, with complaints of mental status changes, low saturations, and possibly pneumonia. The patient was initially seen in the ER, and then transferred to the intensive care, where she was seen yesterday and today, in room 254. She's currently on BiPAP. BiPAP settings are 12/5 and 65%. He is currently receiving Levaquin. Microbiologic cultures are negative. She did test positive for coronavirus infection. She's getting D5W 100 mL an hour Precedex at 0.5 mcg/kg per hour. White count was 12.7, hemoglobin 11.4, hematocrit 37.2, and platelet count 270,000. Sodium 153, potassium 4.5, chlorides 119, CO2 27, with a BUN and creatinine of 60, and 1.55. Chest x-ray continues to show bilateral airspace disease. Progress note dated 11/09/2021. 50-year-old female seen in consultation 2 days ago. She was brought in from one of the local nursing homes with complaints of mental status changes, possible pneumonia, and low saturations. The patient was seen initially in the emergency department, and was admitted to the intensive care unit. She remains on BiPAP, with settings of 12/5 and 80%. She's getting dexmedetomidine at 0.5 mcg/kg/h. She's getting D5W at 100 mL an hour. Today, we will attempt to get her off of dexmedetomidine, and replace it with Haldol IM. According to the nurse, she had a very uneventful night. White count 14.6, hemoglobin 11.4, hematocrit 38.2, and platelet count 315,000. Sodium 149, potassium 4.2, chlorides 117, CO2 24, BUN 44, and creatinine 1.27. Calcium is normal. Microbiologic studies are thus far negative. No chest x-ray today. CAT scan of the brain did not show anything acute. The patient is seen today 11/10/2021 in follow-up in the intensive care unit. She remains on BiPAP 12/5 and 80% FiO2. She has required dexmedetomidine at 0.8 mcg/kg/h. Currently she is resting comfortably in bed. Chest x-ray reveals bilateral airspace disease. No evidence of pneumothorax or pleural effusions. Nasogastric tube remains in place. CT scan of the brain reveals an atrophic and chronic small vessel ischemic changes without acute intracranial process. Blood cultures revealed no growth. White count 15.2. Hemoglobin 11.2. Platelets 298. Sodium 150. Potassium 4.0. Chloride 118. BUN 36. Creatinine 1.13. Glucose 172. She remains on Decadron, Levaquin. Anticoagulated with Eliquis. Objective - Vital Signs Vital signs: Vital Signs Temp 97.6 F 11/10/21 08:00 Pulse 67 11/10/21 09:00 Resp 34 H 11/10/21 09:00 BP 91/61 11/10/21 09:00 Pulse Ox 94 L 11/10/21 09:00 FiO2 80 11/10/21 08:00 Intake & Output 11/09/21 11/10/21 11/10/21 18:59 06:59 18:59 Intake Total 8545.505 8369.518 441.074 Output Total 765 1375 375 Balance 527.470 108.518 66.074 Weight 82.8 kg Intake: IV 1225 1125 425 Dextrose 5% in Water 1, 1225 1125 425 000 ml @ 150 mls/hr IV . Q6H40M [facility] Rx#:[id number] Intake, IV Titration 67.470 358.518 16.074 Amount Dexmedetomidine/0.9% NaCl 67.470 208.518 16.074 (Pmx) 400 mcg In Empty Bag 1 bag @ 0.2 MCG/KG/HR 4.763 mls/hr IV .Q21H [facility] Rx#:[id number] Levofloxacin 750Mg-D5w 150 Pmx 750 mg In Dextrose/ Water 1 150ml.bag @ 100 mls/hr IVPB Q24H [facility] Rx#: [id number] Output: Urine 765 1375 375 Other: Voiding Method Indwelling Catheter Indwelling Catheter Indwelling Catheter - Exam GENERAL EXAM: 50-year-old female patient currently on BiPAP 12/5 and 80% FiO2, comfortable in no apparent distress. HEAD: Normocephalic. EYES: Normal reaction of pupils, equal size. NOSE: Clear with pink turbinates. THROAT: No erythema or exudates. NECK: No masses, no JVD. CHEST: No chest wall deformity. LUNGS: Equal air entry with bilateral scattered rhonchi. CVS: S1 and S2 normal with no audible murmur, regular rhythm. ABDOMEN: No hepatosplenomegaly, normal bowel sounds, no guarding or rigidity. SPINE: No scoliosis or deformity SKIN: No rashes CENTRAL NERVOUS SYSTEM: No focal deficits, tone is normal in all 4 extremities. EXTREMITIES: There is no peripheral edema. No clubbing, no cyanosis. Peripheral pulses are intact. - Labs CBC & Chem 7: 11/10/21 06:10 11/10/21 06:10 Labs: Abnormal Lab Results - Last 24 Hours (Table) 11/09/21 11/09/21 11/09/21 Range/Units 11:13 17:41 17:59 WBC (3.8-10.6) k/uL Hgb (11.4-16.0) gm/dL MCHC (31.0-37.0) g/dL Sodium 149 H (137-145) mmol/L Chloride 115 H (98-107) mmol/L BUN 43 H (7-17) mg/dL Creatinine 1.33 H (0.52-1.04) mg/dL Glucose 223 H (74-99) mg/dL POC Glucose (mg/dL) 139 H 208 H (70-110) mg/dL 11/10/21 11/10/21 11/10/21 Range/Units 00:07 05:57 06:10 WBC 15.2 H (3.8-10.6) k/uL Hgb 11.2 L (11.4-16.0) gm/dL MCHC 29.5 L (31.0-37.0) g/dL Sodium (137-145) mmol/L Chloride (98-107) mmol/L BUN (7-17) mg/dL Creatinine (0.52-1.04) mg/dL Glucose (74-99) mg/dL POC Glucose (mg/dL) 187 H 164 H (70-110) mg/dL 11/10/21 Range/Units 06:10 WBC (3.8-10.6) k/uL Hgb (11.4-16.0) gm/dL MCHC (31.0-37.0) g/dL Sodium 150 H (137-145) mmol/L Chloride 118 H (98-107) mmol/L BUN 36 H (7-17) mg/dL Creatinine 1.13 H (0.52-1.04) mg/dL Glucose 172 H (74-99) mg/dL POC Glucose (mg/dL) (70-110) mg/dL Microbiology - Last 24 Hours (Table) 11/07/21 00:40 Blood Culture - Preliminary Blood No Growth after 72 hours 11/07/21 00:50 Blood Culture - Preliminary Blood No Growth after 72 hours 11/06/21 21:25 Blood Culture - Preliminary Blood No Growth after 72 hours 11/08/21 18:47 Blood Culture - Preliminary Blood No Growth after 24 hours Assessment and Plan Assessment: Acute hypoxemic respiratory failure secondary to bilateral pneumonia. Currently on BiPAP 12/5 and 80% FiO2. History of recent coronavirus infection. Acute mental status changes, presumably secondary to infection. Hypernatremia. History of hypertension. History of hyperlipidemia. History of diabetes mellitus. History of hypothyroidism. History of schizophrenia. Prior history of tobacco use. History of heavy alcohol use. History of marijuana use. Plan: The patient was seen and evaluated Chest x-ray, medications and labs reviewed Continue D5W at 150 ML's per hour Titrate the dexmedetomidine as tolerated Dietary consult for tube feeding recommendations Overall prognosis remains guarded We'll continue to follow I have personally seen and examined the patient, performed the documentation and the assessment and plan as written. Number of minutes spent on the visit: 10.
[2021-11-10 11:01] LABS: Glucose,Whole Blood 184 mg/dL (70-110)
--- NOTE | 2021-11-10 11:03 | P.PN ---
Subjective Progress Note Date: 11/10/21 The patient is seen at bedside and per nurse she continues to be on BiPAP 80% and once off is hypoxic. She is tachypneic. Still could not obtain EEG since on BiPAP. She is on IV precedex 0.8mcg/kg/hr. Objective - Vital Signs Vital signs: Vital Signs Temp 98.1 F 11/10/21 04:00 Pulse 55 L 11/10/21 05:30 Resp 34 H 11/10/21 05:30 BP 103/56 11/10/21 05:30 Pulse Ox 95 11/10/21 05:30 FiO2 80 11/10/21 07:08 Intake & Output 11/09/21 11/10/21 11/10/21 18:59 06:59 18:59 Intake Total 3981.749 3977.518 141.074 Output Total 765 1375 125 Balance 527.470 108.518 16.074 Weight 82.8 kg Intake: IV 1225 1125 125 Dextrose 5% in Water 1, 1225 1125 125 000 ml @ 150 mls/hr IV . Q6H40M [facility] Rx#:[id number] Intake, IV Titration 67.470 358.518 16.074 Amount Dexmedetomidine/0.9% NaCl 67.470 208.518 16.074 (Pmx) 400 mcg In Empty Bag 1 bag @ 0.2 MCG/KG/HR 4.763 mls/hr IV .Q21H [facility] Rx#:[id number] Levofloxacin 750Mg-D5w 150 Pmx 750 mg In Dextrose/ Water 1 150ml.bag @ 100 mls/hr IVPB Q24H [facility] Rx#: [id number] Output: Urine 765 1375 125 Other: Voiding Method Indwelling Catheter Indwelling Catheter - Exam GENERAL: The patient is lying in bed and seems in slight distress is not in acute distress. HENT: Supple neck. LUNG: Tachypneic and is on BiPAP [id number]. NEUROLOGICAL: Limited. on IV precedex 0.8mcg/kg/hr. Higher mental function: The patient is stupor. She is not following command or verbally responsive. Is moaning. Cranial nerves:I had to manually open her eyes and primary gaze is midline. The pupils are round (2mm) and slugghishly reactive to light. No facial weakness but hard to ascertain because of face mask. Otherwise rest is limited. Motor: The strength is hard to assess because of her condition. But moving her lower and upper extremities on her own spontaneously above gravity. Slightly decrease tone throughout. Normal bulk. Cerebellum: Unable to assess. Sensation: Could not assess light touch but seems to have intact to painful stimuli. Reflexes (right/left): 1+ throughout. Plantars are mute bilaterally. Some of the work-up in our facility during this visit consisted of: TSH is less than 0.015 but the free T4 is 1.49 Ammonia level is less than 9 Is reported as no acute intracranial abnormality or gross space-occupying lesion by this nonenhanced computed tomography scan. Brain volume loss changes more than expected for the patient's age. I personally reviewed the CT of the head and I agree with the report. - Labs CBC & Chem 7: 11/10/21 06:10 11/10/21 06:10 Labs: Abnormal Lab Results - Last 24 Hours (Table) 11/09/21 11/09/21 11/09/21 Range/Units 08:05 08:05 11:13 WBC 14.6 H (3.8-10.6) k/uL Hgb (11.4-16.0) gm/dL MCHC 29.9 L (31.0-37.0) g/dL Neutrophils # 13.5 H (1.3-7.7) k/uL Lymphocytes # 0.5 L (1.0-4.8) k/uL Sodium 149 H (137-145) mmol/L Chloride 117 H (98-107) mmol/L BUN 44 H (7-17) mg/dL Creatinine 1.27 H (0.52-1.04) mg/dL Glucose 197 H (74-99) mg/dL POC Glucose (mg/dL) 139 H (70-110) mg/dL 11/09/21 11/09/21 11/10/21 Range/Units 17:41 17:59 00:07 WBC (3.8-10.6) k/uL Hgb (11.4-16.0) gm/dL MCHC (31.0-37.0) g/dL Neutrophils # (1.3-7.7) k/uL Lymphocytes # (1.0-4.8) k/uL Sodium 149 H (137-145) mmol/L Chloride 115 H (98-107) mmol/L BUN 43 H (7-17) mg/dL Creatinine 1.33 H (0.52-1.04) mg/dL Glucose 223 H (74-99) mg/dL POC Glucose (mg/dL) 208 H 187 H (70-110) mg/dL 11/10/21 11/10/21 11/10/21 Range/Units 05:57 06:10 06:10 WBC 15.2 H (3.8-10.6) k/uL Hgb 11.2 L (11.4-16.0) gm/dL MCHC 29.5 L (31.0-37.0) g/dL Neutrophils # (1.3-7.7) k/uL Lymphocytes # (1.0-4.8) k/uL Sodium 150 H (137-145) mmol/L Chloride 118 H (98-107) mmol/L BUN 36 H (7-17) mg/dL Creatinine 1.13 H (0.52-1.04) mg/dL Glucose 172 H (74-99) mg/dL POC Glucose (mg/dL) 164 H (70-110) mg/dL Microbiology - Last 24 Hours (Table) 11/07/21 00:40 Blood Culture - Preliminary Blood No Growth after 72 hours 11/07/21 00:50 Blood Culture - Preliminary Blood No Growth after 72 hours 11/06/21 21:25 Blood Culture - Preliminary Blood No Growth after 72 hours 11/08/21 18:47 Blood Culture - Preliminary Blood No Growth after 24 hours Assessment and Plan Assessment: Encephalopathy seems due to multifactorial: Predominately hypoxic encephalopa thy due to COVID-19 pneumonia. Also component of metabolic encephalopathy (hypernatremia, JAYLA). 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 meningoencephalitis History of seizure and she had a seizure about 6-8 years ago (blank starkarla) while ?reported GTC on 03/15/2021 (but her 2.5 hour EEG and routine EEG was negative for seizure or epileptiform discharges) Acute hypoxemic respiratory failure secondary due to pneumonia Acute hypernatremia--trending down JAYLA--trending down Recent cal[place] virus infection History of diabetes History of hyper-thousand Schizoaffective disorder Primary history of tobacco use History of heavy alcohol use History of marijuana use Plan: An EEG id pending (cannot be performed at this time since on BiPAP 80% FiO2 and per nurse at this BiPAP cannot be taken off since patient becomes hypoxic). Will change thiamine from IV to PO. Every 2 neuro checks Patient is on Eliquis. I spoke with the patient's regarding her condition via phone and notified him that my suspicion of meningeal encephalitis is very low but a lumbar puncture can be helpful but he stated he does not want to pursue with lumbar puncture. I obtained repeat CT head today since patient continues to be confused and rule out any stroke: It is reported as age-related atrophic and chronic small vessel ischemic change without acute intracranial process seen at this time. I personally reviewed CT and don't appreciated any acute or subacute stroke. Nephrology team is consulted Psychiatry team is consulted We'll defer the rest of the medical management to the primary and ICU team Patient condition is critical. Prognosis is very guarded to poor. The plan is discussed with the patient's ICU attending. Breezy Orozco M.D. Neuro-hospital Time with Patient: Less than 30
--- NOTE | 2021-11-10 17:05 | P.PN ---
Progress Note - Text Progress Note Date: 11/10/21 Chief Complaint: Decreased mentation History of presenting complaint: This is a 50-year-old patient, who follows with Dr. Saenz . Resident of [facility] [place].. known history of bipolar disorder and schizophrenia. 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 Patient was here in May 2021. Severe hypernatremia, acute kidney injury metabolic encephalopathy. 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 Low-dose and high-dose dexamethasone test was put on telemetry specific. Does of Synthroid was increased. Patient now brought in from [facility]. Patient was diagnosed with COVID 19 a few days ago. Was on Paxil of it. Patient became increasingly lethargic. Patient is felt to secondary bacterial pneumonia. Given Levaquin and transferred here. Also noted. Significantly hypernatremic. Patient admitted to ICU. 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 This morning patient int ICU. On a Precedex drip. BiPAP. Lethargic. Not able to give any history. Admitted with COVID 19 pneumonitis, hypoxia, possibly secondary bacterial pneumonia, severe hyponatremia, severe metabolic encephalopathy, acute kidney injury. On IV Precedex. IV fluids. Levaquin. EEG. November 08: ICU: On BiPAP 12/5. IV Precedex. Lethargic. IV Levaquin. Oral bicarbonate. Medications through NG tube. EEG pending. November 09: ICU: On BiPAP 12/5. Off Precedex. Remains lethargic a bit restless. November 10: ICU: On BiPAP 12/5. Remains on Precedex. IV fluids. Sinus rhythm. Remains encephalopathic/delirious. Active Medications Albuterol Sulfate (Albuterol Hfa Inhaler) 2 puff INHALATION RT-QID PRN PRN Reason: Shortness Of Breath Or Wheezing Last Admin: 11/10/21 11:07 Dose: 2 puff Apixaban (Apixaban 5 Mg Tab) 5 mg PO DAILY@0900 [facility]; Protocol Last Admin: 11/10/21 08:47 Dose: 5 mg Aspirin (Aspirin 81 Mg) 81 mg PO DAILY@0900 [facility] Last Admin: 11/10/21 08:47 Dose: 81 mg Atorvastatin Calcium (Atorvastatin 40 Mg Tab) 40 mg PO HS@2100 [facility] Last Admin: 11/09/21 21:13 Dose: 40 mg Clozapine (Clozapine 100 Mg Tab) 200 mg PO TID@0900,1300,2100 [facility] Stop: 11/15/21 23:00 Last Admin: 11/10/21 12:33 Dose: 200 mg Dexamethasone Sodium Phosphate (Dexamethasone Sod Phosphate 10 Mg/Ml 1 Ml Vial) 6 mg IVP DAILY [facility] Last Admin: 11/10/21 08:48 Dose: 6 mg Dextrose/Water (Dextrose 5%-Water Iv Soln) 1,000 mls @ 150 mls/hr IV .Q6H40M [facility] Last Admin: 11/10/21 14:18 Dose: 150 mls/hr Dexmedetomidine HCl 400 mcg/ (IV Solution) 100 mls @ 4.763 mls/hr IV .Q21H [facility]; Protocol Last Admin: 11/10/21 16:42 Dose: 0.7 mcg/kg/hr, 16.669 mls/hr Levofloxacin 750 mg/ IV (Solution) 150 mls @ 100 mls/hr IVPB Q24H [facility]; Protocol Last Admin: 11/09/21 21:13 Dose: 100 mls/hr Insulin Aspart (Insulin Aspart (Novolog) 100 Unit/Ml Vial) 0 unit SQ Q6HR [facility]; Protocol Last Admin: 11/10/21 11:05 Dose: 2 unit Lamotrigine (Lamotrigine 25 Mg Tab) 25 mg PO BID@0900,2100 [facility] Last Admin: 11/10/21 08:48 Dose: 25 mg Levothyroxine Sodium (Levothyroxine 100 Mcg Tab) 100 mcg PO DAILY@0600 [facility] Last Admin: 11/10/21 06:02 Dose: 100 mcg Miscellaneous Information (Pneumonia Protocol Utilized 1 Each Misc) 1 each PO ONCE PRN PRN Reason: Per Protocol Miscellaneous Information (Potassium Replacement Protocol 1 Each Misc) 1 each MISCELLANE DAILY PRN; Protocol PRN Reason: Per Protocol Naloxone HCl (Naloxone 0.4 Mg/Ml 1 Ml Vial) 0.2 mg IV Q2M PRN PRN Reason: Opioid Reversal Pantoprazole Sodium (Pantoprazole 40 Mg/10 Ml Vial) 40 mg IV DAILY [facility] Last Admin: 11/10/21 08:49 Dose: 40 mg Thiamine HCl (Thiamine 100 Mg/Ml 2 Ml Vial) 100 mg IVP DAILY [facility] Last Admin: 11/10/21 08:49 Dose: 100 mg Past medical history to include: Hypertension, hypothyroid, bipolar disorder, schizophrenia. excessive alcohol use in the past. No smoking. Psychosis, catatonic-like syndrome Social history: Heavy alcohol use in the past. . No smoking. Currently at [facility] Family history: Patient cannot tell Physical examination: VITAL SIGNS: 97.8, 82, 36, 96/64, 94% on BiPAP GENERAL: Delirious, restless. On BiPAP EYES: Pupils equal. Conjunctiva normal. HEENT: External appearance of nose and ears normal, oral cavity dry. NG tube NECK: JVD unable to assess; masses not palpable. HEART: First and second heart sounds are normal; no edema. LUNGS: Respiratory rate increased; decreased breath sounds ABDOMEN: Soft, nontender, liver spleen not palpable, no masses palpable. PSYCH: Encephalopathic, unable to assess MUSCULOSKELETAL:No Clubbing/cyanosis;muscles-grossly intact. NEUROLOGICAL: [Cranial nerves grossly intact; no facial asymmetry, moving about in bed INVESTIGATIONS, reviewed in the clinical context: November 10: WBC 15.2 hemoglobin 11.2 sodium 150 progression 4. 36 creatinine 1.13 November 09: WBC 14.6 hemoglobin 11.4 2149 potassium 4.2 BUN 44 creatinine 1.27 November 08: WBC 12.7 hemoglobin 11.4 sodium 153 potassium 4.5 BUN 60 creatinine 1.55 cortisol 18 November 07: White count 20.7 hemoglobin 12 platelets 345 sodium 162 potassium 4.2. 58 creatinine 2.13 ammonia less than 9 COVID 19: Detected November 06: White count 9.5 hemoglobin 12.6 platelets 321 sodium 157 potassium 4.3 chloride 124 BUN 50 creatinine 2.04 UA positive for leukoesterase, WBC Pro-calcitonin 1.11 Chest x-ray film personally reviewed by me-scattered infiltrate EKG tracing personally reviewed by me-sinus rhythm Previous labs: BUN 9 creatinine 0.95 on June 2021 Assessment and plan: -Severe hypernatremia, from free water deficit from decreased oral intake: Slow to respond D5W at 150 mL an hour -COVID 19 with pneumonitis/hypoxia: Slow to respond BiPAP. Dexamethasone -Possible secondary bacterial pneumonia : Slow to respond Levaquin 750 mg -Acute hypoxic respiratory failure from respiratory suppression multifactorial: Slow to respond BiPAP 12/5 -Acute severe metabolic encephalopathy from renal failure and delirium: Slow to respond Treat underlying conditions -Schizoaffective disorder, bipolar type. Psychosis: Clozaril 200 mg by mouth daily 3 times a day Lamictal 25 mg twice a day Ativan 1 mg IV every 4 when necessary -Bipolar disorder See above medications -Acute kidney injury, possibly prerenal/ ATN : Some improvement Admission creatinine 2.04. D5W. -Diabetes mellitus type 2, on oral hypoglycemic Hold metformin Follow Accu-Cheks -Hypothyroid, Synthroid 100g a day -Hyperlipidemia Lipitor 40 mg daily at bedtime TriCor 134 mg before supper -Chronic DVT both lower extremity diagnosed on October 19 2020 [place]. -Full code D5W to 150 mL an hour.. Oral medications through a G-tube. Dexamethasone. . Levaquin. BiPAP. Follow with consultants. Follow labs.
[2021-11-10 18:02] LABS: Glucose,Whole Blood 312 mg/dL (70-110)
[2021-11-10] MEDS: LEVOFLOXACIN 750MG-D5W PMX 750 MG in DEXTROSE/WATER 1 150ML.BAG IVPB SCH (20:30)
[2021-11-10] MEDS: ATORVASTATIN 40 MG TAB PO SCH (20:31)
[2021-11-11 00:14] LABS: Glucose,Whole Blood 189 mg/dL (70-110)
[2021-11-11] MEDS: DEXMEDETOMIDINE/0.9% NACL(PMX) 400 MCG in EMPTY BAG 1 BAG IV SCH ×6 (01:02→22:37)
[2021-11-11 05:47] LABS: Glucose,Whole Blood 193 mg/dL (70-110)
[2021-11-11] MEDS: LEVOTHYROXINE 100 MCG TAB PO SCH (05:52)
[2021-11-11] MEDS: INSULIN ASPART (NovoLOG) 100 UNIT/ML VIAL SQ SCH ×4 (05:52→18:33)
--- NOTE | 2021-11-11 07:23 | XR ---
EXAMINATION TYPE: XR chest 1V portable DATE OF EXAM: 11/11/2021 HISTORY: Shortness of breath. COMPARISON: 11/10/2021 TECHNIQUE: Single view of the chest is submitted. FINDINGS: Demonstrated are scattered senescent parenchymal change. There is increasing infiltrate right midlung zone and right lower lobe. There is also developing infi ltrate left perihilar region. The heart is stable. NG tube is seen coursing into the stomach. Hilar and mediastinal structures are within normal limits. Degenerative changes are seen of the dorsal spine. IMPRESSION: 1. There is increasing infiltrate right midlung zone and right lower lobe. There is also developing infiltrate left perihilar region.
[2021-11-11] MEDS: DEXTROSE 5% IN WATER 1,000 ML IV SCH ×2 (07:30→17:34)
[2021-11-11 08:28] LABS: Albumin 2.6 g/dL (3.5-5.0); Calcium 9.2 mg/dL (8.4-10.2); Potassium 3.8 mmol/L (3.5-5.1); Total Bilirubin 0.4 mg/dL (0.2-1.3); Total Protein 5.1 g/dL (6.3-8.2)
[2021-11-11] MEDS: cloZAPine 100 MG TAB PO SCH ×3 (08:49→20:27)
[2021-11-11] MEDS: ASPIRIN 81 MG PO SCH (08:49)
[2021-11-11] MEDS: DEXAMETHASONE SOD PHOSPHATE 10 MG/ML 1 ML VIAL IVP SCH (08:49)
[2021-11-11] MEDS: APIXABAN 5 MG TAB PO SCH (08:49)
[2021-11-11] MEDS: lamoTRIgine 25 MG TAB PO SCH ×2 (08:50→20:27)
[2021-11-11] MEDS: THIAMINE 100 MG/ML 2 ML VIAL IVP SCH (08:50)
[2021-11-11] MEDS: PANTOPRAZOLE 40 MG/10 ML VIAL IV SCH (08:50)
[2021-11-11] MEDS ORDERED: POTASSIUM BICARBONATE/CIT AC 20 MEQ TABLET.EFF NG-TUBE SCH (09:00)
--- NOTE | 2021-11-11 10:54 | P.PN ---
Subjective Progress Note Date: 11/11/21 Principal diagnosis: this is a 50-year-old female with acute kidney injury secondary to comment pneumonia. She was seen from the doorway. She is currently on a BiPAP. She was seen because of a worsening creatinine. she is a long-term resident. Vitals blood pressure 106/84 heart rate 101 temperature 24-hour intake is 4622 output is 2662. her labs show creatinine is down to 1.0 to normal electrolytes with sodium 144 potassium 3.8 chloride 111 bicarb 25 normal ALt the AST. A chest x-ray shows increasing infiltrate right middle lung zone and right lower lobe and left perihilar region. Impression. 1. acute kidney injury secondary to septic syndrome. Creatinine improved. 2. Worsening pulmonary infiltrates. Recommendation No changes in management from a nephrological perspective. We'll continue to follow as needed Objective - Vital Signs Vital signs: Vital Signs Temp 98.2 F 11/11/21 08:00 Pulse 101 H 11/11/21 10:30 Resp 35 H 11/11/21 10:30 BP 106/84 11/11/21 10:30 Pulse Ox 97 11/11/21 10:30 FiO2 70 11/11/21 08:00 Intake & Output 11/10/21 11/11/21 11/11/21 18:59 06:59 18:59 Intake Total 2155.074 2467.320 520.483 Output Total 1200 1462 300 Balance 321.700 5927.320 220.483 Weight 82.8 kg 87.4 kg Intake: IV 1775 1835 270 Dextrose 5% in Water 177 1725 250 000 ml @ 125 mls/hr IV . Q8H DENISSE Rx#:[id number] KVO 110 20 Intake, IV Titration 220.074 202.320 140.483 Amount Dexmedetomidine/0.9% NaCl 220.074 202.320 140.483 (Pmx) 400 mcg In Empty Bag 1 bag @ 0.2 MCG/KG/HR 4.763 mls/hr IV .Q21H DENISSE Rx#:[id number] Tube Feeding 130 430 80 Other 30 30 Output: Urine 1200 1462 300 Other: Voiding Method Indwelling Catheter Indwelling Catheter Indwelling Catheter - Labs CBC & Chem 7: 11/10/21 06:10 11/11/21 07:37 Labs: Abnormal Lab Results - Last 24 Hours (Table) 11/10/21 11/10/21 11/11/21 Range/Units 10:59 18:01 00:11 Chloride (98-107) mmol/L BUN (7-17) mg/dL Glucose (74-99) mg/dL POC Glucose (mg/dL) 184 H 312 H 189 H (70-110) mg/dL Total Protein (6.3-8.2) g/dL Albumin (3.5-5.0) g/dL 11/11/21 11/11/21 Range/Units 05:45 07:37 Chloride 111 H (98-107) mmol/L BUN 29 H (7-17) mg/dL Glucose 266 H (74-99) mg/dL POC Glucose (mg/dL) 193 H (70-110) mg/dL Total Protein 5.1 L (6.3-8.2) g/dL Albumin 2.6 L (3.5-5.0) g/dL Microbiology - Last 24 Hours (Table) 11/07/21 00:40 Blood Culture - Preliminary Blood No Growth after 96 hours 11/07/21 00:50 Blood Culture - Preliminary Blood No Growth after 96 hours 11/06/21 21:25 Blood Culture - Preliminary Blood No Growth after 96 hours 11/08/21 18:47 Blood Culture - Preliminary Blood No Growth after 48 hours 11/09/21 12:25 Blood Culture - Preliminary Blood No Growth after 24 hours
--- NOTE | 2021-11-11 12:10 | P.PN ---
Subjective Progress Note Date: 11/11/21 50-year-old female, who is brought in by the [facility] emergency services. She apparently resides at [facility] in that area. She apparently has a history of schizophrenia, as well as a history of recent infection with coronavirus. The patient was brought in because of mental status changes, and also low saturations. Apparently the patient was evaluated there and thought to have pneumonia. The patient was treated with Levaquin here. Currently, she seen in the emergency room, room 11. She is on 15 L high flow oxygen. She's getting saline at 75 mL an hour. I did have the opportunity to speak to the patient's , name Art. He was able to provide some history. The patient is at the senior living as mentioned above, but is unable to prepare food for herself. Her mental status varies hour to hour and day today according to him. The patient herself can give me no history. She sees been here in the emergency department, she's been moaning and groaning. Her chest x-ray shows bilateral patchy infiltrates. A blood gas was done and showed a pO2 of 89, pCO2 35, and pH is 7.332. She apparently has a history of diabetes, hypertension, hyperlipidemia, and hypothyroidism. White count 11.5, hemoglobin 12.6, hematocrit 41.3, with a normal platelet count. Sodium 157, potassium 4.3, chlorides 124, CO2 19, anion gap 14, BUN 50, creatinine 2.04. Her lactic acid was 1.2. Pro-calcitonin level is pending. Urine is yellow and cloudy. There is 1+ protein. Trace blood. Small positive leukocyte esterase, 7 RBCs, 9 WBCs, and many bacteria. Chest x-ray shows patchy bilateral infiltrates. Progress note dated 11/08/2021. 50-year-old female seen in the emergency department yesterday. She was brought in from one of the local nursing homes, with complaints of mental status changes, low saturations, and possibly pneumonia. The patient was initially seen in the ER, and then transferred to the intensive care, where she was seen yesterday and today, in room 254. She's currently on BiPAP. BiPAP settings are 12/5 and 65%. He is currently receiving Levaquin. Microbiologic cultures are negative. She did test positive for coronavirus infection. She's getting D5W 100 mL an hour Precedex at 0.5 mcg/kg per hour. White count was 12.7, hemoglobin 11.4, hematocrit 37.2, and platelet count 270,000. Sodium 153, potassium 4.5, chlorides 119, CO2 27, with a BUN and creatinine of 60, and 1.55. Chest x-ray continues to show bilateral airspace disease. Progress note dated 11/09/2021. 50-year-old female seen in consultation 2 days ago. She was brought in from one of the local nursing homes with complaints of mental status changes, possible pneumonia, and low saturations. The patient was seen initially in the emergency department, and was admitted to the intensive care unit. She remains on BiPAP, with settings of 12/5 and 80%. She's getting dexmedetomidine at 0.5 mcg/kg/h. She's getting D5W at 100 mL an hour. Today, we will attempt to get her off of dexmedetomidine, and replace it with Haldol IM. According to the nurse, she had a very uneventful night. White count 14.6, hemoglobin 11.4, hematocrit 38.2, and platelet count 315,000. Sodium 149, potassium 4.2, chlorides 117, CO2 24, BUN 44, and creatinine 1.27. Calcium is normal. Microbiologic studies are thus far negative. No chest x-ray today. CAT scan of the brain did not show anything acute. The patient is seen today 11/10/2021 in follow-up in the intensive care unit. She remains on BiPAP 12/5 and 80% FiO2. She has required dexmedetomidine at 0.8 mcg/kg/h. Currently she is resting comfortably in bed. Chest x-ray reveals bilateral airspace disease. No evidence of pneumothorax or pleural effusions. Nasogastric tube remains in place. CT scan of the brain reveals an atrophic and chronic small vessel ischemic changes without acute intracranial process. Blood cultures revealed no growth. White count 15.2. Hemoglobin 11.2. Platelets 298. Sodium 150. Potassium 4.0. Chloride 118. BUN 36. Creatinine 1.13. Glucose 172. She remains on Decadron, Levaquin. Anticoagulated with Eliquis. The patient is seen today 11/11/2021 in follow-up in the intensive care unit. She is continued on BiPAP 12/5 and 70% FiO2 to maintain O2 saturations in the 90s. She remains on dexmedetomidine at 1 mcg/kg per hour. D5 W2 125 ML's per hour. She is being nourished with Jevity 1.5 at 40 ML's per hour with a goal of 50 ML's per hour. She remains on antibiotics in the form of Levaquin. She is anticoagulated with Eliquis. Continued on Decadron. Asked x-ray shows i ncreasing infiltrate in the right midlung zone and right lower lobe. Also developing infiltrate in the left perihilar region. Blood cultures reveal no growth. Sodium 144. Potassium 3.8. Bicarb 29. Creatinine 1.02. Glucose 266. AST 24. ALT 18. Objective - Vital Signs Vital signs: Vital Signs Temp 98.2 F 11/11/21 08:00 Pulse 101 H 11/11/21 10:30 Resp 35 H 11/11/21 10:30 BP 106/84 11/11/21 10:30 Pulse Ox 97 11/11/21 10:30 FiO2 60 11/11/21 11:06 Intake & Output 11/10/21 11/11/21 11/11/21 18:59 06:59 18:59 Intake Total 2155.074 2467.320 520.483 Output Total 1200 1462 300 Balance 183.774 5546.320 220.483 Weight 82.8 kg 87.4 kg Intake: IV 1775 1835 270 Dextrose 5% in Water 1, 1775 1725 250 000 ml @ 125 mls/hr IV . Q8H DENISSE Rx#:[id number] KVO 110 20 Intake, IV Titration 220.074 202.320 140.483 Amount Dexmedetomidine/0.9% NaCl 220.074 202.320 140.483 (Pmx) 400 mcg In Empty Bag 1 bag @ 0.2 MCG/KG/HR 4.763 mls/hr IV .Q21H DENISSE Rx#:[id number] Tube Feeding 130 430 80 Other 30 30 Output: Urine 1200 1462 300 Other: Voiding Method Indwelling Catheter Indwelling Catheter Indwelling Catheter - Exam GENERAL EXAM: 50-year-old female patient, currently on BiPAP 12/5 and 70% FiO2, comfortable in no apparent distress. HEAD: Normocephalic. EYES: Normal reaction of pupils, equal size. NOSE: Clear with pink turbinates. THROAT: No erythema or exudates. NECK: No masses, no JVD. CHEST: No chest wall deformity. LUNGS: Equal air entry with bilateral scattered rhonchi. CVS: S1 and S2 normal with no audible murmur, regular rhythm. ABDOMEN: No hepatosplenomegaly, normal bowel sounds, no guarding or rigidity. SPINE: No scoliosis or deformity SKIN: No rashes CENTRAL NERVOUS SYSTEM: No focal deficits, tone is normal in all 4 extremities. EXTREMITIES: There is no peripheral edema. No clubbing, no cyanosis. Peripheral pulses are intact. - Labs CBC & Chem 7: 11/10/21 06:10 11/11/21 07:37 Labs: Abnormal Lab Results - Last 24 Hours (Table) 11/10/21 11/11/21 11/11/21 Range/Units 18:01 00:11 05:45 Chloride (98-107) mmol/L BUN (7-17) mg/dL Glucose (74-99) mg/dL POC Glucose (mg/dL) 312 H 189 H 193 H (70-110) mg/dL Total Protein (6.3-8.2) g/dL Albumin (3.5-5.0) g/dL 11/11/21 Range/Units 07:37 Chloride 111 H (98-107) mmol/L BUN 29 H (7-17) mg/dL Glucose 266 H (74-99) mg/dL POC Glucose (mg/dL) (70-110) mg/dL Total Protein 5.1 L (6.3-8.2) g/dL Albumin 2.6 L (3.5-5.0) g/dL Microbiology - Last 24 Hours (Table) 11/07/21 00:40 Blood Culture - Preliminary Blood No Growth after 96 hours 11/07/21 00:50 Blood Culture - Preliminary Blood No Growth after 96 hours 11/06/21 21:25 Blood Culture - Preliminary Blood No Growth after 96 hours 11/08/21 18:47 Blood Culture - Preliminary Blood No Growth after 48 hours 11/09/21 12:25 Blood Culture - Preliminary Blood No Growth after 24 hours Assessment and Plan Assessment: Acute hypoxemic respiratory failure secondary to bilateral pneumonia. Currently on BiPAP 12/5 and 70% FiO2. History of recent coronavirus infection. Acute mental status changes, presumably secondary to infection. Hypernatremia. History of hypertension. History of hyperlipidemia. History of diabetes mellitus. History of hypothyroidism. History of schizophrenia. Prior history of tobacco use. History of heavy alcohol use. History of marijuana use. Plan: The patient was seen and evaluated Chest x-ray, medications and labs reviewed Decrease D5W 50 ML's per hour Receiving tube feedings now with Jevity Titrate the dexmedetomidine as tolerated Overall prognosis remains guarded Remains a full code per her 's direction We'll continue to follow I have personally seen and examined the patient, performed the documentation and the assessment and plan as written. Number of minutes spent on the visit: 10.
[2021-11-11 12:13] LABS: Glucose,Whole Blood 343 mg/dL (70-110)
--- NOTE | 2021-11-11 12:43 | P.PN ---
Subjective Progress Note Date: 11/11/21 According to the nurse, patient condition is about the same. She continues to be on BiPAP requiring 60% Fio2 but is tachypneic in 30-40's. Otherwise neurologically the same. ICU team contacted the and he wants her full code. Objective - Vital Signs Vital signs: Vital Signs Temp 98.1 F 11/11/21 12:00 Pulse 87 11/11/21 12:00 Resp 32 H 11/11/21 12:00 BP 101/72 11/11/21 12:00 Pulse Ox 95 11/11/21 12:00 FiO2 60 11/11/21 12:00 Intake & Output 11/10/21 11/11/21 11/11/21 18:59 06:59 18:59 Intake Total 2155.074 2467.320 1070.000 Output Total 1200 1462 625 Balance 973.978 1219.320 445.000 Weight 82.8 kg 87.4 kg Intake: IV 1775 1835 600 Dextrose 5% in Water 1, 1775 1725 550 000 ml @ 50 mls/hr IV . Q20H DENISSE Rx#:[id number] KVO 110 50 Intake, IV Titration 220.074 202.320 200.000 Amount Dexmedetomidine/0.9% NaCl 220.074 202.320 200.000 (Pmx) 400 mcg In Empty Bag 1 bag @ 0.2 MCG/KG/HR 4.763 mls/hr IV .Q21H DENISSE Rx#:[id number] Tube Feeding 130 430 210 Other 30 60 Output: Urine 1200 1462 625 Other: Voiding Method Indwelling Catheter Indwelling Catheter Indwelling Catheter - Exam GENERAL: The patient is lying in bed and seems in slight distress is not in acute distress. HENT: Supple neck. LUNG: Tachypneic and is on BiPAP FiO2 60% NEUROLOGICAL: Limited. on IV precedex 1mcg/kg/hr. Higher mental function: The patient is stupor. She is not following command or verbally responsive. Is moaning. Cranial nerves:She will open her eyes to verbal stimuli. Pupils are round (2mm) and slugghishly reactive to light. No facial weakness but hard to ascertain because of face mask. Otherwise rest is limited. Motor: The strength is hard to assess because of her condition. But moving her lower and upper extremities on her own spontaneously above gravity. Slightly decrease tone throughout. Normal bulk. Cerebellum: Unable to assess. Sensation: Could not assess light touch but seems to have intact to painful stimuli. Reflexes (right/left): 1+ throughout. Plantars are mute bilaterally. Some of the work-up in our facility during this visit consisted of: TSH is less than 0.015 but the free T4 is 1.49 Ammonia level is less than [address] head Is reported as no acute intracranial abnormality or gross space- occupying lesion by this nonenhanced computed tomography scan. Brain volume loss changes more than expected for the patient's age. I personally reviewed the CT of the head and I agree with the report. Repeat CT head on 11/10/2021 since patient continues to be confused and rule out any stroke: It is reported as age-related atrophic and chronic small vessel ischemic change without acute intracranial process seen at this time. I personally reviewed CT and don't appreciated any acute or subacute stroke. - Labs CBC & Chem 7: 11/10/21 06:10 11/11/21 07:37 Labs: Abnormal Lab Results - Last 24 Hours (Table) 11/10/21 11/11/21 11/11/21 Range/Units 18:01 00:11 05:45 Chloride (98-107) mmol/L BUN (7-17) mg/dL Glucose (74-99) mg/dL POC Glucose (mg/dL) 312 H 189 H 193 H (70-110) mg/dL Total Protein (6.3-8.2) g/dL Albumin (3.5-5.0) g/dL 11/11/21 11/11/21 Range/Units 07:37 12:12 Chloride 111 H (98-107) mmol/L BUN 29 H (7-17) mg/dL Glucose 266 H (74-99) mg/dL POC Glucose (mg/dL) 343 H (70-110) mg/dL Total Protein 5.1 L (6.3-8.2) g/dL Albumin 2.6 L (3.5-5.0) g/dL Microbiology - Last 24 Hours (Table) 11/07/21 00:40 Blood Culture - Preliminary Blood No Growth after 96 hours 11/07/21 00:50 Blood Culture - Preliminary Blood No Growth after 96 hours 11/06/21 21:25 Blood Culture - Preliminary Blood No Growth after 96 hours 11/08/21 18:47 Blood Culture - Preliminary Blood No Growth after 48 hours 11/09/21 12:25 Blood Culture - Preliminary Blood No Growth after 24 hours Assessment and Plan Assessment: Encephalopathy seems due to multifactorial: Predominately hypoxic encephalopathy due to COVID-19 pneumonia. Also component of metabolic encephalopathy (hypernatremia, JAYLA). 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 meningoencephalitis History of seizure and she had a seizure about 6-8 years ago (arnol brown) while ?reported GTC on 03/15/2021 (but her 2.5 hour EEG and routine EEG was negative for seizure or epileptiform discharges) Acute hypoxemic respiratory failure secondary due to pneumonia Acute hypernatremia--trending down JAYLA--trending down Recent caldwell virus infection History of diabetes History of hyper-thousand Schizoaffective disorder Primary history of tobacco use History of heavy alcohol use History of marijuana use Plan: An EEG is pending (cannot be performed at this time since on BiPAP). Continues to have significant respiratory issues. Continue thiamine 100mg daily PO. Every 2 neuro checks Patient is on Eliquis. I spoke with the patient's regarding her condition via phone and notified him that my suspicion of meningeal encephalitis is very low but a lumbar puncture can be helpful but he stated he does not want to pursue with lumbar puncture. Nephrology team is on board Psychiatry team is on board. We'll defer the rest of the medical management to the primary and ICU team Patient condition is critical. The plan is discussed with the patient's nurse. Breezy Orozco M.D. Neuro-hospital Time with Patient: Less than 30
[2021-11-11 18:25] LABS: Glucose,Whole Blood 331 mg/dL (70-110)
--- NOTE | 2021-11-11 19:26 | P.PN ---
Subjective Progress Note Date: 11/11/21 Principal diagnosis: Encephalopathy; multifactorial Acute hypoxemic respiratory failure secondary due to pneumonia Acute hypernatremia--trending down JAYLA 50-year-old female, who is brought in by the [facility] emergency services. She apparently resides at [facility] up in that area. She apparently has a history of schizophrenia, as well as a history of recent infection with coronavirus. The patient was brought in because of mental status changes, and also low saturations. Apparently the patient was evaluated there and thought to have pneumonia. The patient was treated with Levaquin here. Currently, she seen in the emergency room, room 11. She is on 15 L high flow oxygen. She's getting saline at 75 mL an hour. I did have the opportunity to speak to the patient's , name Art. He was able to provide some history. The patient is at the assisted as mentioned above, but is unable to prepare food for herself. Her mental status varies hour to hour and day today according to him. The patient herself can give me no history. She sees been here in the emergency department, she's been moaning and groaning. Her chest x-ray shows bilateral patchy infiltrates. A blood gas was done and showed a pO2 of 89, pCO2 35, and pH is 7.332. She apparently has a history of diabetes, hypertension, hyperlipidemia, and hypothyroidism. 11/11/2021 Patient is seen and evaluated in follow-up in the intensive care unit; remains on BiPAP 12/5 and 70% FiO2 to maintain O2 saturations in the 90s. She remains on dexmedetomidine at 1 mcg/kg per hour. D5 W2 125 ML's per hour. She is being nourished with Jevity 1.5 at 40 ML's per hour with a goal of 50 ML's per hour. She remains on antibiotics in the form of Levaquin. She is anticoagulated with Eliquis. Continued on Decadron. Asked x-ray shows increasing infiltrate in the right midlung zone and right lower lobe. Also developing infiltrate in the left perihilar region. Blood cultures reveal no growth. Sodium 144. Potassium 3.8. Bicarb 29. Creatinine 1.02. Glucose 266. AST 24. ALT 18. Objective - Vital Signs Vital signs: Vital Signs Temp 98.1 F 11/11/21 12:00 Pulse 74 06/25/22 14:00 Resp 29 H 11/11/21 14:00 BP 99/65 11/11/21 14:00 Pulse Ox 93 L 11/11/21 14:00 FiO2 60 11/11/21 12:00 Intake & Output 11/10/21 11/11/21 11/11/21 18:59 06:59 18:59 Intake Total 2155.074 2467.320 1341.200 Output Total 1200 1462 925 Balance 471.673 4864.320 416.200 Weight 82.8 kg 87.4 kg Intake: IV 1775 1835 720 Dextrose 5% in Water 1, 1775 1725 650 000 ml @ 50 mls/hr IV . Q20H DENISSE Rx#:[id number] KVO 110 70 Intake, IV Titration 220.074 202.320 251.200 Amount Dexmedetomidine/0.9% NaCl 220.074 202.320 251.200 (Pmx) 400 mcg In Empty Bag 1 bag @ 0.2 MCG/KG/HR 4.763 mls/hr IV .Q21H DENISSE Rx#:[id number] Tube Feeding 130 430 310 Other 30 60 Output: Urine 1200 1462 925 Other: Voiding Method Indwelling Catheter Indwelling Catheter Indwelling Catheter - Exam GENERAL EXAM: 50-year-old female patient, currently on BiPAP 12/5 and 70% FiO2, comfortable in no apparent distress. EYES: Normal reaction of pupils, equal size. NOSE: Clear with pink turbinates. THROAT: No erythema or exudates. NECK: No masses, no JVD. CHEST: No chest wall deformity. LUNGS: Equal air entry with bilateral scattered rhonchi. CVS: S1 and S2 normal with no audible murmur, regular rhythm. ABDOMEN: No hepatosplenomegaly, normal bowel sounds, no guarding or rigidity. SKIN: No rashes - Labs CBC & Chem 7: 11/10/21 06:10 11/11/21 07:37 Labs: Abnormal Lab Results - Last 24 Hours (Table) 11/10/21 11/11/21 11/11/21 Range/Units 18:01 00:11 05:45 Chloride (98-107) mmol/L BUN (7-17) mg/dL Glucose (74-99) mg/dL POC Glucose (mg/dL) 312 H 189 H 193 H (70-110) mg/dL Total Protein (6.3-8.2) g/dL Albumin (3.5-5.0) g/dL 11/11/21 11/11/21 Range/Units 07:37 12:12 Chloride 111 H (98-107) mmol/L BUN 29 H (7-17) mg/dL Glucose 266 H (74-99) mg/dL POC Glucose (mg/dL) 343 H (70-110) mg/dL Total Protein 5.1 L (6.3-8.2) g/dL Albumin 2.6 L (3.5-5.0) g/dL Microbiology - Last 24 Hours (Table) 11/09/21 12:25 Blood Culture - Preliminary Blood No Growth after 48 hours 11/07/21 00:40 Blood Culture - Preliminary Blood No Growth after 96 hours 11/07/21 00:50 Blood Culture - Preliminary Blood No Growth after 96 hours 11/06/21 21:25 Blood Culture - Preliminary Blood No Growth after 96 hours 11/08/21 18:47 Blood Culture - Preliminary Blood No Growth after 48 hours Assessment and Plan Assessment: Encephalopathy seems due to multifactorial: Predominately hypoxic encephalopathy due to COVID-19 pneumonia. Also component of metabolic encephalopathy (hypernatremia, JAYLA). 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 meningoencephalitis History of seizure and she had a seizure about 6-8 years ago (blank stares) while ?reported GTC on 03/15/2021 (but her 2.5 hour EEG and routine EEG was negative for seizure or epileptiform discharges) Acute hypoxemic respiratory failure secondary due to pneumonia Acute hypernatremia--trending down JAYLA--trending down Recent caldwell virus infection History of diabetes History of hyper-thousand Schizoaffective disorder Primary history of tobacco use History of heavy alcohol use History of marijuana use Plan: An EEG is pending (cannot be performed at this time since on BiPAP). Continues to have significant respiratory issues. Continue thiamine 100mg daily PO. Every 2 neuro checks Patient is on Eliquis. I spoke with the patient's regarding her condition via phone and notified him that my suspicion of meningeal encephalitis is very low but a lumbar puncture can be helpful but he stated he does not want to pursue with lumbar puncture. Nephrology team is on board Psychiatry team is on board.--No plans for lumbar puncture per cytogenetic technician service related to low suspicion of meningeal encephalitis
[2021-11-11] MEDS: ALBUTEROL HFA INHALER INHALATION PRN (19:27)
[2021-11-11] MEDS: LEVOFLOXACIN 750MG-D5W PMX 750 MG in DEXTROSE/WATER 1 150ML.BAG IVPB SCH (20:27)
[2021-11-11] MEDS: ATORVASTATIN 40 MG TAB PO SCH (20:27)
[2021-11-12 00:57] LABS: Glucose,Whole Blood 151 mg/dL (70-110)
[2021-11-12] MEDS: INSULIN ASPART (NovoLOG) 100 UNIT/ML VIAL SQ SCH ×5 (00:58→23:34)
[2021-11-12] MEDS: DEXMEDETOMIDINE/0.9% NACL(PMX) 400 MCG in EMPTY BAG 1 BAG IV SCH ×5 (03:22→23:32)
[2021-11-12 06:11] LABS: Calcium 9.7 mg/dL (8.4-10.2); Potassium 3.9 mmol/L (3.5-5.1)
[2021-11-12] MEDS: LEVOTHYROXINE 100 MCG TAB PO SCH (06:32)
--- NOTE | 2021-11-12 07:21 | XR ---
EXAMINATION TYPE: XR chest 1V portable DATE OF EXAM: 11/12/2021 HISTORY: Shortness of breath. COMPARISON: 11/11/2021 TECHNIQUE: Single view of the chest is submitted. FINDINGS: Demonstrated are scattered senescent parenchymal change. Persistent infiltrate throughout the right mid and right lower lung zones as well as left lower lobe. NG tube is seen coursing into the stomach. The heart is stable. Hilar and mediastinal structures are within normal limits. Degenerative changes are seen of the dorsal spine. IMPRESSION: 1. Persistent infiltrate throughout the right mid and right lower lung zones as well as left lower l obe.
[2021-11-12] MEDS: PANTOPRAZOLE 40 MG/10 ML VIAL IV SCH (08:39)
[2021-11-12] MEDS: APIXABAN 5 MG TAB PO SCH (08:40)
[2021-11-12] MEDS: lamoTRIgine 25 MG TAB PO SCH ×2 (08:40→19:51)
[2021-11-12] MEDS: DEXAMETHASONE SOD PHOSPHATE 10 MG/ML 1 ML VIAL IVP SCH (08:40)
[2021-11-12] MEDS: ASPIRIN 81 MG PO SCH (08:40)
[2021-11-12] MEDS: cloZAPine 100 MG TAB PO SCH ×3 (08:41→19:51)
[2021-11-12] MEDS: THIAMINE 100 MG TAB PO SCH (08:42)
[2021-11-12] MEDS: DEXTROSE 5% IN WATER 1,000 ML IV SCH (09:01)
--- NOTE | 2021-11-12 10:52 | P.PN ---
Subjective Progress Note Date: 11/12/21 Principal diagnosis: Pneumonia 50-year-old female, who is brought in by the [facility] emergency [facility]. She apparently resides at [facility] in that area. She apparently has a history of schizophrenia, as well as a history of recent infection with coronavirus. The patient was brought in because of mental status changes, and also low saturations. Apparently the patient was evaluated there and thought to have pneumonia. The patient was treated with Levaquin here. Currently, she seen in the emergency room, room 11. She is on 15 L high flow oxygen. She's getting saline at 75 mL an hour. I did have the opportunity to speak to the patient's , name Art. He was able to provide some history. The patient is at the [facility] as mentioned above, but is unable to prepare food for herself. Her mental status varies hour to hour and day to day according to him. The patient herself can give me no history. She sees been here in the emergency department, she's been moaning and groaning. Her chest x-ray shows bilateral patchy infiltrates. A blood gas was done and showed a pO2 of 89, pCO2 35, and pH is 7.332. She apparently has a history of diabetes, hypertension, hyperlipidemia, and hypothyroidism. White count 11.5, hemoglobin 12.6, hematocrit 41.3, with a normal platelet count. Sodium 157, potassium 4.3, chlorides 124, CO2 19, anion gap 14, BUN 50, creatinine 2.04. Her lactic acid was 1.2. Pro-calcitonin level is pending. Urine is yellow and cloudy. There is 1+ protein. Trace blood. Small positive leukocyte esterase, 7 RBCs, 9 WBCs, and many bacteria. Chest x-ray shows patchy bilateral infiltrates. Progress note dated 11/08/2021. 50-year-old female seen in the emergency department yesterday. She was brought in from one of the local nursing homes, with complaints of mental status changes, low saturations, and possibly pneumonia. The patient was initially seen in the ER, and then transferred to the intensive care, where she was seen yesterday and today, in room 254. She's currently on BiPAP. BiPAP settings are 12/5 and 65%. He is currently receiving Levaquin. Microbiologic cultures are negative. She did test positive for coronavirus infection. She's getting D5W 100 mL an hour Precedex at 0.5 mcg/kg per hour. White count was 12.7, hemoglobin 11.4, hematocrit 37.2, and platelet count 270,000. Sodium 153, potassium 4.5, chlorides 119, CO2 27, with a BUN and creatinine of 60, and 1.55. Chest x-ray continues to show bilateral airspace disease. Progress note dated 11/09/2021. 50-year-old female seen in consultation 2 days ago. She was brought in from one of the local nursing homes with complaints of mental status changes, possible pneumonia, and low saturations. The patient was seen initially in the emergency department, and was admitted to the intensive care unit. She remains on BiPAP, with settings of 12/5 and 80%. She's getting dexmedetomidine at 0.5 mcg/kg/h. She's getting D5W at 100 mL an hour. Today, we will attempt to get her off of dexmedetomidine, and replace it with Haldol IM. According to the nurse, she had a very uneventful night. White count 14.6, hemoglobin 11.4, hematocrit 38.2, and platelet count 315,000. Sodium 149, potassium 4.2, chlorides 117, CO2 24, BUN 44, and creatinine 1.27. Calcium is normal. Microbiologic studies are thus far negative. No chest x-ray today. CAT scan of the brain did not show anything acute. The patient is seen today 11/10/2021 in follow-up in the intensive care unit. She remains on BiPAP 12/5 and 80% FiO2. She has required dexmedetomidine at 0.8 mcg/kg/h. Currently she is resting comfortably in bed. Chest x-ray reveals bilateral airspace disease. No evidence of pneumothorax or pleural effusions. Nasogastric tube remains in place. CT scan of the brain reveals an atrophic and chronic small vessel ischemic changes without acute intracranial process. Blood cultures revealed no growth. White count 15.2. Hemoglobin 11.2. Platelets 298. Sodium 150. Potassium 4.0. Chloride 118. BUN 36. Creatinine 1.13. Glucose 172. She remains on Decadron, Levaquin. Anticoagulated with Eliquis. Progress note dated 11/12/2021. The patient is again seen today in room 254. She remains on BiPAP, with setti ngs of 12/5 and 55%. She is on saline at 10 mL an hour, and Precedex at 0.9 mcg/kg per hour. Today, we will discontinue the saline. We'll put her on dextrose at 100 mL an hour. She is receiving Jevity at 50 mL an hour, which is goal. Her oxygenation has improved. Just a couple days ago, she was on 100%. Sodium 152, potassium 3.9, chlorides 119, CO2 27, BUN 34, creatinine 1.07. Chest x-ray shows persistent infiltrate throughout the right midlung and right lower lobe lung zones, as well as in the left lower lobe. Objective - Vital Signs Vital signs: Vital Signs Temp 97.7 F 11/12/21 08:00 Pulse 118 H 11/12/21 10:00 Resp 35 H 11/12/21 10:00 BP 91/59 11/12/21 10:00 Pulse Ox 92 L 11/12/21 10:00 FiO2 55 11/12/21 09:00 Intake & Output 11/11/21 11/12/21 11/12/21 18:59 06:59 18:59 Intake Total 1565.806 9539 450 Output Total 1575 1275 225 Balance 285.000 -115 225 Intake: IV 960 120 10 Dextrose 5% in Water 1, 850 000 ml @ 100 mls/hr IV . Q10H [facility] Rx#:[id number] KVO 110 120 10 Intake, IV Titration 300.000 350 200 Amount Dexmedetomidine/0.9% NaCl 300.000 200 100 (Pmx) 400 mcg In Empty Bag 1 bag @ 0.2 MCG/KG/HR 4.763 mls/hr IV .Q21H [facility] Rx#:[id number] Dextrose 5% in Water 1, 100 000 ml @ 100 mls/hr IV . Q10H [facility] Rx#:[id number] Levofloxacin 750Mg-D5w 150 Pmx 750 mg In Dextrose/ Water 1 150ml.bag @ 100 mls/hr IVPB Q24H [facility] Rx#: [id number] Tube Feeding 510 600 150 Other 90 90 90 Output: Urine 1575 1275 225 Other: Voiding Method Indwelling Catheter Indwelling Catheter - Exam Currently on BiPAP, sedated, in no acute distress. HEENT examination is grossly unremarkable. Neck supple. Full range of motion. No adenopathy thyromegaly or neck vein dis tention. Cardiovascular examination reveals regular rhythm rate. S1-S2 normal. No S3 or S4. No discernible murmur noted. Heart sounds are distant. Heart rate 99 bpm. Lungs reveal scattered bilateral rhonchi and crackles. Breath sounds equal. No wheezes. Abdomen soft, with bowel sounds. No tenderness.. Extremities are intact. No cyanosis clubbing or edema. Skin is without rash or lesion. Neurologic examination is difficult to assess. - Labs CBC & Chem 7: 11/10/21 06:10 11/12/21 05:49 Labs: Abnormal Lab Results - Last 24 Hours (Table) 11/11/21 11/11/21 11/12/21 Range/Units 12:12 18:24 00:55 Sodium (137-145) mmol/L Chloride (98-107) mmol/L BUN (7-17) mg/dL Creatinine (0.52-1.04) mg/dL Glucose (74-99) mg/dL POC Glucose (mg/dL) 343 H 331 H 151 H (70-110) mg/dL 11/12/21 Range/Units 05:49 Sodium 152 H (137-145) mmol/L Chloride 119 H (98-107) mmol/L BUN 34 H (7-17) mg/dL Creatinine 1.07 H (0.52-1.04) mg/dL Glucose 186 H (74-99) mg/dL POC Glucose (mg/dL) (70-110) mg/dL Microbiology - Last 24 Hours (Table) 11/07/21 00:50 Blood Culture - Preliminary Blood No Growth after 120 hours 11/07/21 00:40 Blood Culture - Preliminary Blood No Growth after 120 hours 11/06/21 21:25 Blood Culture - Preliminary Blood No Growth after 120 hours 11/08/21 18:47 Blood Culture - Preliminary Blood No Growth after 72 hours 11/09/21 12:25 Blood Culture - Preliminary Blood No Growth after 48 hours Assessment and Plan Assessment: Acute hypoxemic respiratory failure secondary to bilateral pneumonia. History of recent coronavirus infection. Acute mental status changes, presumably secondary to infection. Hypernatremia. History of hypertension. History of hyperlipidemia. History of diabetes mellitus. History of hypothyroidism. History of schizophrenia. Prior history of tobacco use. History of heavy alcohol use. History of marijuana use. Plan: Plan dated 11/07/2021. The patient's currently receiving Levaquin for her pneumonia. Her saline IV is running at 75 mL an hour. Her IV should be converted to dextrose, at 100 mL an hour. Blood and urine culture should be done if not or ready done. I did speak to the . He gave me a limited information. We spoke briefly about CODE STATUS. I don't have a good sense as to what he or she would want, should her s ituation declined. She may need admission to the intensive care unit. Labs, x- rays, and medications are reviewed. Prognosis is guarded. Plan dated 11/08/2021. The patient is currently on dexmedetomidine, and her agitation is much better controlled. She was seen by psychiatry. Their input is appreciated. She remains on D5W. She had severe hypernatremia. Her sodium is down to 153. She did test positive for coronavirus infection. She has ready on a factor X a inhibitor. We added Decadron 6 mg IV daily. The patient cannot take anything by mouth at this time. We will attempt to reduce the dexmedetomidine, and reevaluate her neurologic status. Additional recommendations and suggestions are forthcoming. Prognosis is guarded. Plan dated 11/09/2021. The patient remains on BiPAP therapy. We'll attempt to wean the dexmedetomidine off, and instead use Haldol, IM. Labs, x-rays, and medications are reviewed. The patient was stable overnight. We will get a chest x-ray in the morning. She remains on Levaquin. Microbiologic studies are thus far negative. Overall prognosis remains very guarded. Plan dated 11/12/2021. The patient's saline will be discontinued. The patient will be given D5W at 100 mL an hour, for the patient's worsening hypernatremia. The patient remains on tube feedings. We will attempt to wean the patient's Precedex to a lower dose. Additional recommendations and suggestions are forthcoming. Labs, x-rays, medications are reviewed. Overall prognosis remains very guarded. We've had ongoing discussions with the patient's . Time with Patient: Less than 30
--- NOTE | 2021-11-12 12:02 | P.PN ---
Subjective Progress Note Date: 11/12/21 The patient is seen at bedside and per nurse was notified from report minimally better (minimally more awake today). Otherwise she continues to be on BiPAP and is on 55% FiO2. She continues to be tachypneic in 20's to 30's, hypoxic in high 80's and tachycardiac. Is on IV precedex 0.9mcg/kg/hr. Objective - Vital Signs Vital signs: Vital Signs Temp 97.7 F 11/12/21 08:00 Pulse 118 H 11/12/21 10:00 Resp 35 H 11/12/21 10:00 BP 91/59 11/12/21 10:00 Pulse Ox 92 L 11/12/21 10:00 FiO2 55 11/12/21 09:00 Intake & Output 11/11/21 11/12/21 11/12/21 18:59 06:59 18:59 Intake Total 2342.657 9327 450 Output Total 1575 1275 225 Balance 285.000 -115 225 Intake: IV 960 120 10 Dextrose 5% in Water 1, 850 000 ml @ 100 mls/hr IV . Q10H [facility] Rx#:[id number] KVO 110 120 10 Intake, IV Titration 300.000 350 200 Amount Dexmedetomidine/0.9% NaCl 300.000 200 100 (Pmx) 400 mcg In Empty Bag 1 bag @ 0.2 MCG/KG/HR 4.763 mls/hr IV .Q21H [facility] Rx#:[id number] Dextrose 5% in Water 1, 100 000 ml @ 100 mls/hr IV . Q10H [facility] Rx#:[id number] Levofloxacin 750Mg-D5w 150 Pmx 750 mg In Dextrose/ Water 1 150ml.bag @ 100 mls/hr IVPB Q24H [facility] Rx#: [id number] Tube Feeding 510 600 150 Other 90 90 90 Output: Urine 1575 1275 225 Other: Voiding Method Indwelling Catheter Indwelling Catheter - Exam GENERAL: The patient is lying in bed and seems in slight distress is not in acute distress. HENT: Supple neck. LUNG: Tachypneic and is on BiPAP FiO2 55% NEUROLOGICAL: Limited. on IV precedex 0.9mcg/kg/hr. Higher mental function: The patient is very drowsy. But seems more awake today compared to her entire stay. She is not following command or verbally respon sive. Is moaning. Cranial nerves:Pupils are round (2mm) and slugghishly reactive to light. No facial weakness but hard to ascertain because of face mask. Otherwise rest is limited. Motor: The strength is hard to assess because of her condition. But moving her lower and upper extremities on her own spontaneously above gravity. Slightly decrease tone throughout. Normal bulk. Cerebellum: Unable to assess. Sensation: Could not assess light touch but seems to have intact to painful stimuli. Reflexes (right/left): 1+ throughout. Plantars are mute bilaterally. Some of the work-up in our facility during this visit consisted of: TSH is less than 0.015 but the free T4 is 1.49 Ammonia level is less than [address] head Is reported as no acute intracranial abnormality or gross space- occupying lesion by this nonenhanced computed tomography scan. Brain volume loss changes more than expected for the patient's age. I personally reviewed the CT of the head and I agree with the report. Repeat CT head on 11/10/2021 since patient continues to be confused and rule out any stroke: It is reported as age-related atrophic and chronic small vessel ischemic change without acute intracranial process seen at this time. I personally reviewed CT and don't appreciated any acute or subacute stroke. - Labs CBC & Chem 7: 11/10/21 06:10 11/12/21 05:49 Labs: Abnormal Lab Results - Last 24 Hours (Table) 11/11/21 11/11/21 11/12/21 Range/Units 12:12 18:24 00:55 Sodium (137-145) mmol/L Chloride (98-107) mmol/L BUN (7-17) mg/dL Creatinine (0.52-1.04) mg/dL Glucose (74-99) mg/dL POC Glucose (mg/dL) 343 H 331 H 151 H (70-110) mg/dL 11/12/21 Range/Units 05:49 Sodium 152 H (137-145) mmol/L Chloride 119 H (98-107) mmol/L BUN 34 H (7-17) mg/dL Creatinine 1.07 H (0.52-1.04) mg/dL Glucose 186 H (74-99) mg/dL POC Glucose (mg/dL) (70-110) mg/dL Microbiology - Last 24 Hours (Table) 11/07/21 00:50 Blood Culture - Preliminary Blood No Growth after 120 hours 11/07/21 00:40 Blood Culture - Preliminary Blood No Growth after 120 hours 11/06/21 21:25 Blood Culture - Preliminary Blood No Growth after 120 hours 11/08/21 18:47 Blood Culture - Preliminary Blood No Growth after 72 hours 11/09/21 12:25 Blood Culture - Preliminary Blood No Growth after 48 hours Assessment and Plan Assessment: Encephalopathy seems due to multifactorial: Predominately hypoxic encephalopathy due to COVID-19 pneumonia. Also component of metabolic encephalopathy (hypernatremia, JAYLA). 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 meningoencephalitis History of seizure and she had a seizure about 6-8 years ago (blank stares) while ?reported GTC on 03/15/2021 (but her 2.5 hour EEG and routine EEG was negative for seizure or epileptiform discharges). Acute hypoxemic respiratory failure secondary due to pneumonia Acute hypernatremia--trending down JAYLA--trending down Recent cal[place] virus infection History of diabetes History of hyper-thousand Schizoaffective disorder Primary history of tobacco use History of heavy alcohol use History of marijuana use Plan: An EEG is pending (cannot be performed at this time since on BiPAP). Continues to have significant respiratory issues. Continue thiamine 100mg daily PO. Every 3 neuro checks Nephrology team is on board Psychiatry team is on board. We'll defer the rest of the medical management to the primary and ICU team Patient baseline neurological status is poor and resides in [facility]. Patient condition is critical. The plan is discussed with the patient's nurse. Dr. Schuler will start neurology service tomorrow AM. Breezy Orozco M.D. [facility]
[2021-11-12 12:22] LABS: Glucose,Whole Blood 403 mg/dL (70-110)
--- NOTE | 2021-11-12 12:59 | P.PN ---
Subjective Progress Note Date: 11/12/21 Principal diagnosis: This is a 50-year-old female with acute kidney injury secondary to comment pneumonia. She was seen from the doorway. She is currently on a BiPAP. She was seen because of a worsening creatinine and Hypernatremia. she is a [facility] resident. BP; 121/84 HR: 110's, NSR T: Normal 24-hour intake is; 3020 output is 2850 BS high Per NS trace edema Coarse BS her labs show creatinine is down to 1.07, Na was 144> 152 to normal electrolytes with sodium 144 potassium 3.8 chloride 111 bicarb 25 A chest x-ray shows increasing infiltrate right middle lung zone and right lower lobe and left perihilar region. Impression. 1. acute kidney injury secondary to septic syndrome. Creatinine improved. 2. Worsening pulmonary infiltrates. 3. Hypernatremia sec to loss of free water sec to high bS Recommendation 1. Reduce D5W to 25 2. Increase water via GI to 100/hr 3. Redo labs at 8 pm and call me Objective - Vital Signs Vital signs: Vital Signs Temp 97.7 F 11/12/21 08:00 Pulse 112 H 11/12/21 12:00 Resp 26 H 11/12/21 12:00 BP 121/84 11/12/21 12:00 Pulse Ox 95 11/12/21 12:00 FiO2 55 11/12/21 12:00 Intake & Output 11/11/21 11/12/21 11/12/21 18:59 06:59 18:59 Intake Total 3856.269 8261 750 Output Total 1575 1275 350 Balance 285.000 -115 400 Intake: IV 960 120 10 Dextrose 5% in Water 1, 850 000 ml @ 100 mls/hr IV . Q10H [facility] Rx#:[id number] KVO 110 120 10 Intake, IV Titration 300.000 350 400 Amount Dexmedetomidine/0.9% NaCl 300.000 200 100 (Pmx) 400 mcg In Empty Bag 1 bag @ 0.2 MCG/KG/HR 4.763 mls/hr IV .Q21H [facility] Rx#:[id number] Dextrose 5% in Water 1, 300 000 ml @ 100 mls/hr IV . Q10H [facility] Rx#:[id number] Levofloxacin 750Mg-D5w 150 Pmx 750 mg In Dextrose/ Water 1 150ml.bag @ 100 mls/hr IVPB Q24H [facility] Rx#: [id number] Tube Feeding 510 600 250 Other 90 90 90 Output: Urine 1575 1275 350 Other: Voiding Method Indwelling Catheter Indwelling Catheter Indwelling Catheter - Labs CBC & Chem 7: 11/10/21 06:10 11/12/21 05:49 Labs: Abnormal Lab Results - Last 24 Hours (Table) 11/11/21 11/12/21 11/12/21 Range/Units 18:24 00:55 05:49 Sodium 152 H (137-145) mmol/L Chloride 119 H (98-107) mmol/L BUN 34 H (7-17) mg/dL Creatinine 1.07 H (0.52-1.04) mg/dL Glucose 186 H (74-99) mg/dL POC Glucose (mg/dL) 331 H 151 H (70-110) mg/dL 11/12/21 Range/Units 12:21 Sodium (137-145) mmol/L Chloride (98-107) mmol/L BUN (7-17) mg/dL Creatinine (0.52-1.04) mg/dL Glucose (74-99) mg/dL POC Glucose (mg/dL) 403 H (70-110) mg/dL Microbiology - Last 24 Hours (Table) 11/07/21 00:50 Blood Culture - Preliminary Blood No Growth after 120 hours 11/07/21 00:40 Blood Culture - Preliminary Blood No Growth after 120 hours 11/06/21 21:25 Blood Culture - Preliminary Blood No Growth after 120 hours 11/08/21 18:47 Blood Culture - Preliminary Blood No Growth after 72 hours 11/09/21 12:25 Blood Culture - Preliminary Blood No Growth after 48 hours
--- NOTE | 2021-11-12 14:46 | P.PN ---
Subjective Progress Note Date: 11/12/21 Principal diagnosis: Encephalopathy; multifactorial Acute hypoxemic respiratory failure secondary due to pneumonia Acute hypernatremia--trending down JAYLA 50-year-old female, who is brought in by the [place] emergency services. She apparently resides at [facility] up in that area. She apparently has a history of schizophrenia, as well as a history of recent infection with coronavirus. The patient was brought in because of mental status changes, and also low saturations. Apparently the patient was evaluated there and thought to have pneumonia. The patient was treated with Levaquin here. Currently, she seen in the emergency room, room 11. She is on 15 L high flow oxygen. She's getting saline at 75 mL an hour. I did have the opportunity to speak to the patient's , name Art. He was able to provide some history. The patient is at the shelter as mentioned above, but is unable to prepare food for herself. Her mental status varies hour to hour and day today according to him. The patient herself can give me no history. She sees been here in the emergency department, she's been moaning and groaning. Her chest x-ray shows bilateral patchy infiltrates. A blood gas was done and showed a pO2 of 89, pCO2 35, and pH is 7.332. She apparently has a history of diabetes, hypertension, hyperlipidemia, and hypothyroidism. 11/11/2021 Patient is seen and evaluated in follow-up in the intensive care unit; remains on BiPAP 12/5 and 70% FiO2 to maintain O2 saturations in the 90s. She remains on dexmedetomidine at 1 mcg/kg per hour. D5 W2 125 ML's per hour. She is being nourished with Jevity 1.5 at 40 ML's per hour with a goal of 50 ML's per hour. She remains on antibiotics in the form of Levaquin. She is anticoagulated with Eliquis. Continued on Decadron. Asked x-ray shows increasing infiltrate in the right midlung zone and right lower lobe. Also developing infiltrate in the left perihilar region. Blood cultures reveal no growth. Sodium 144. Potassium 3.8. Bicarb 29. Creatinine 1.02. Glucose 266. AST 24. ALT 18. 11/12/2021 Patient is seen and evaluated in room at bedside; remains in ICU; per nursing staff patient is slightly more awake compared to yesterday Vital signs reveal temperature of 97.7, pulse 118, respiration 35, blood pressure of 91/59 with O2 saturation 92% with an FiO2 of 55% Labs are reviewed which revealed sodium of 152, potassium 2.9, BUN/creatinine of 304/1.07 with blood glucose of 186 Neurology on board for encephalopathy; likely related to COVID-19 pneumonia with metabolic encephalopathy given hypernatremia and acute renal injury; less likely meningoencephalitis; EEG is ordered and pending; patient remains on thiamine 100 mg daily; we will continue to have neuro checks every 3 hours Nephron board for acute renal injury secondary to septic syndrome; creatinine is improved; hypernatremia is deemed secondary to loss of free water due to high blood sugars; increase water intake via PEG tube is recommended cc per hour; lab s will be redrawn later in the day; further recommendations pending Objective - Vital Signs Vital signs: Vital Signs Temp 98 F 11/12/21 13:00 Pulse 112 H 11/12/21 14:00 Resp 33 H 11/12/21 14:00 BP 117/90 11/12/21 14:00 Pulse Ox 96 11/12/21 14:00 FiO2 55 11/12/21 14:00 Intake & Output 11/11/21 11/12/21 11/12/21 18:59 06:59 18:59 Intake Total 7276.525 0064 1203.230 Output Total 1575 1275 490 Balance 285.000 -115 713.230 Intake: IV 960 120 10 Dextrose 5% in Water 1, 850 000 ml @ 25 mls/hr IV . Q24H [facility] Rx#:[id number] KVO 110 120 10 Intake, IV Titration 300.000 350 553.230 Amount Dexmedetomidine/0.9% NaCl 300.000 200 203.230 (Pmx) 400 mcg In Empty Bag 1 bag @ 0.2 MCG/KG/HR 4.763 mls/hr IV .Q21H [facility] Rx#:[id number] Dextrose 5% in Water 1, 350 000 ml @ 25 mls/hr IV . Q24H [facility] Rx#:[id number] Levofloxacin 750Mg-D5w 150 Pmx 750 mg In Dextrose/ Water 1 150ml.bag @ 100 mls/hr IVPB Q24H [facility] Rx#: [id number] Tube Feeding 510 600 350 Other 90 90 290 Output: Urine 1575 1275 490 Other: Voiding Method Indwelling Catheter Indwelling Catheter Indwelling Catheter - Exam GENERAL EXAM: 50-year-old female patient, currently on BiPAP 12/5 and 70% FiO2, comfortable in no apparent distress. EYES: Normal reaction of pupils, equal size. NOSE: Clear with pink turbinates. THROAT: No erythema or exudates. NECK: No masses, no JVD. CHEST: No chest wall deformity. LUNGS: Equal air entry with bilateral scattered rhonchi. CVS: S1 and S2 normal with no audible murmur, regular rhythm. ABDOMEN: No hepatosplenomegaly, normal bowel sounds, no guarding or rigidity. SKIN: No rashes - Labs CBC & Chem 7: 11/10/21 06:10 11/12/21 05:49 Labs: Abnormal Lab Results - Last 24 Hours (Table) 11/11/21 11/12/21 11/12/21 Range/Units 18:24 00:55 05:49 Sodium 152 H (137-145) mmol/L Chloride 119 H (98-107) mmol/L BUN 34 H (7-17) mg/dL Creatinine 1.07 H (0.52-1.04) mg/dL Glucose 186 H (74-99) mg/dL POC Glucose (mg/dL) 331 H 151 H (70-110) mg/dL 11/12/21 Range/Units 12:21 Sodium (137-145) mmol/L Chloride (98-107) mmol/L BUN (7-17) mg/dL Creatinine (0.52-1.04) mg/dL Glucose (74-99) mg/dL POC Glucose (mg/dL) 403 H (70-110) mg/dL Microbiology - Last 24 Hours (Table) 11/07/21 00:50 Blood Culture - Preliminary Blood No Growth after 120 hours 11/07/21 00:40 Blood Culture - Preliminary Blood No Growth after 120 hours 11/06/21 21:25 Blood Culture - Preliminary Blood No Growth after 120 hours 11/08/21 18:47 Blood Culture - Preliminary Blood No Growth after 72 hours 11/09/21 12:25 Blood Culture - Preliminary Blood No Growth after 48 hours Assessment and Plan Assessment: Encephalopathy seems due to multifactorial: Predominately hypoxic encephalopathy due to COVID-19 pneumonia. Also component of metabolic encephalopathy (hypernatremia, JAYLA). 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 meningoencephalitis History of seizure and she had a seizure about 6-8 years ago (arnol brown) while ?reported GTC on 03/15/2021 (but her 2.5 hour EEG and routine EEG was negative for seizure or epileptiform discharges) Acute hypoxemic respiratory failure secondary due to pneumonia Acute hypernatremia--trending down JAYLA--trending down Recent [place] virus infection History of diabetes History of hyper-thousand Schizoaffective disorder Primary history of tobacco use History of heavy alcohol use History of marijuana use Plan: An EEG is pending (cannot be performed at this time since on BiPAP). Continues to have significant respiratory issues. Continue thiamine 100mg daily PO. Every 2 neuro checks Patient is on Eliquis. I spoke with the patient's regarding her condition via phone and notified him that my suspicion of meningeal encephalitis is very low but a lumbar puncture can be helpful but he stated he does not want to pursue with lumbar puncture. Nephrology team is on board Psychiatry team is on board.--No plans for lumbar puncture per manager pe service related to low suspicion of meningeal encephalitis
[2021-11-12] MEDS: ALBUTEROL HFA INHALER INHALATION PRN ×2 (15:24→19:01)
[2021-11-12] MEDS: INSULIN DETEMIR (LEVEMIR) 100 UNIT/ML SYR SQ SCH (16:36)
[2021-11-12 18:26] LABS: Glucose,Whole Blood 350 mg/dL (70-110)
[2021-11-12] MEDS: ATORVASTATIN 40 MG TAB PO SCH (19:51)
[2021-11-12] MEDS: LEVOFLOXACIN 750MG-D5W PMX 750 MG in DEXTROSE/WATER 1 150ML.BAG IVPB SCH (19:52)
[2021-11-12 23:23] LABS: Glucose,Whole Blood 260 mg/dL (70-110)
[2021-11-13] MEDS: DEXMEDETOMIDINE/0.9% NACL(PMX) 400 MCG in EMPTY BAG 1 BAG IV SCH ×7 (03:00→23:46)
[2021-11-13] MEDS: DEXTROSE 5% IN WATER 1,000 ML IV SCH (03:31)
[2021-11-13 05:38] LABS: Glucose,Whole Blood 188 mg/dL (70-110)
[2021-11-13] MEDS: INSULIN ASPART (NovoLOG) 100 UNIT/ML VIAL SQ SCH ×4 (06:05→23:33)
[2021-11-13] MEDS: LEVOTHYROXINE 100 MCG TAB PO SCH (06:06)
[2021-11-13] MEDS: INSULIN DETEMIR (LEVEMIR) 100 UNIT/ML SYR SQ SCH (06:35)
[2021-11-13 06:58] LABS: Calcium 9.3 mg/dL (8.4-10.2)
--- NOTE | 2021-11-13 08:55 | XR ---
EXAMINATION TYPE: XR chest 1V portable DATE OF EXAM: 11/13/2021 COMPARISON: 11/12/2021 HISTORY: Shortness of breath TECHNIQUE: Single frontal view of the chest is obtained. FINDINGS: Air is seen in the soft tissues of the neck as well as in the mediastinum compatible with pneumomediastinum. NG tube stable. Bilateral infiltrates are unchanged. No sizable pleural effusion o r pneumothorax. Heart size normal. Report called to patient's nurse at 8:51 AM 11/13/2021 IMPRESSION: Findings are suggestive of pneumomediastinum new from prior exam. Stable bilateral infil trates.
[2021-11-13] MEDS: APIXABAN 5 MG TAB PO SCH (09:10)
[2021-11-13] MEDS: ASPIRIN 81 MG PO SCH (09:10)
[2021-11-13] MEDS: lamoTRIgine 25 MG TAB PO SCH ×2 (09:10→20:00)
[2021-11-13] MEDS: THIAMINE 100 MG TAB PO SCH (09:10)
[2021-11-13] MEDS: cloZAPine 100 MG TAB PO SCH ×3 (09:10→20:00)
[2021-11-13] MEDS: DEXAMETHASONE SOD PHOSPHATE 10 MG/ML 1 ML VIAL IVP SCH (09:10)
[2021-11-13] MEDS: PANTOPRAZOLE 40 MG/10 ML VIAL IV SCH (09:11)
[2021-11-13 11:53] LABS: Glucose,Whole Blood 293 mg/dL (70-110)
--- NOTE | 2021-11-13 13:02 | XR ---
EXAMINATION TYPE: XR chest 1V portable DATE OF EXAM: 11/13/2021 COMPARISON: NONE HISTORY: covid pna TECHNIQUE: Single frontal view of the chest is obtained. FINDINGS: Air is seen in the soft tissues of the neck as well as in the mediastinum compatible with pneumomediastinum. NG tube stable. Bilateral infiltrates are unchanged. No sizable pleural effusion o r pneumothorax. Heart size normal. Left-sided central line with tip overlying the SVC. No sizable pne umothorax. IMPRESSION: 1. Findings are suggestive of pneumomediastinum new from prior exam. Stable bilateral infiltrates. 2. Left-sided central line with tip overlying the SVC. No sizable pneumothorax.
--- NOTE | 2021-11-13 13:30 | P.PN ---
Subjective Progress Note Date: 11/13/21 50-year-old female, who is brought in by the [place] emergency services. She apparently resides at [facility] in that area. She apparently has a history of schizophrenia, as well as a history of recent infection with coronavirus. The patient was brought in because of mental status changes, and also low saturations. Apparently the patient was evaluated there and thought to have pneumonia. The patient was treated with Levaquin here. Currently, she seen in the emergency room, room 11. She is on 15 L high flow oxygen. She's getting saline at 75 mL an hour. I did have the opportunity to speak to the patient's , name Art. He was able to provide some history. The patient is at the skilled nursing as mentioned above, but is unable to prepare food for herself. Her mental status varies hour to hour and day today according to him. The patient herself can give me no history. She sees been here in the emergency department, she's been moaning and groaning. Her ch est x-ray shows bilateral patchy infiltrates. A blood gas was done and showed a pO2 of 89, pCO2 35, and pH is 7.332. She apparently has a history of diabetes, hypertension, hyperlipidemia, and hypothyroidism. White count 11.5, hemoglobin 12.6, hematocrit 41.3, with a normal platelet count. Sodium 157, potassium 4.3, chlorides 124, CO2 19, anion gap 14, BUN 50, creatinine 2.04. Her lactic acid was 1.2. Pro-calcitonin level is pending. Urine is yellow and cloudy. There is 1+ protein. Trace blood. Small positive leukocyte esterase, 7 RBCs, 9 WBCs, and many bacteria. Chest x-ray shows patchy bilateral infiltrates. Progress note dated 11/08/2021. 50-year-old female seen in the emergency department yesterday. She was brought in from one of the local nursing homes, with complaints of mental status changes, low saturations, and possibly pneumonia. The patient was initially seen in the ER, and then transferred to the intensive care, where she was seen yesterday and today, in room 254. She's currently on BiPAP. BiPAP settings are 12/5 and 65%. He is currently receiving Levaquin. Microbiologic cultures are negative. She did test positive for coronavirus infection. She's getting D5W 100 mL an hour Precedex at 0.5 mcg/kg per hour. White count was 12.7, hemoglobin 11.4, hematocrit 37.2, and platelet count 270,000. Sodium 153, potassium 4.5, chlorides 119, CO2 27, with a BUN and creatinine of 60, and 1.55. Chest x-ray continues to show bilateral airspace disease. Progress note dated 11/09/2021. 50-year-old female seen in consultation 2 days ago. She was brought in from one of the local nursing homes with complaints of mental status changes, possible pneumonia, and low saturations. The patient was seen initially in the emergency department, and was admitted to the intensive care unit. She remains on BiPAP, with settings of 12/5 and 80%. She's getting dexmedetomidine at 0.5 mcg/kg/h. She's getting D5W at 100 mL an hour. Today, we will attempt to get her off of dexmedetomidine, and replace it with Haldol IM. According to the nurse, she had a very uneventful night. White count 14.6, hemoglobin 11.4, hematocrit 38.2, and platelet count 315,000. Sodium 149, potassium 4.2, chlorides 117, CO2 24, BUN 44, and creatinine 1.27. Calcium is normal. Microbiologic studies are thus far negative. No chest x-ray today. CAT scan of the brain did not show anything acute. The patient is seen today 11/10/2021 in follow-up in the intensive care unit. S he remains on BiPAP 12/5 and 80% FiO2. She has required dexmedetomidine at 0.8 mcg/kg/h. Currently she is resting comfortably in bed. Chest x-ray reveals bilateral airspace disease. No evidence of pneumothorax or pleural effusions. Nasogastric tube remains in place. CT scan of the brain reveals an atrophic and chronic small vessel ischemic changes without acute intracranial process. Blood cultures revealed no growth. White count 15.2. Hemoglobin 11.2. Platelets 298. Sodium 150. Potassium 4.0. Chloride 118. BUN 36. Creatinine 1.13. Glucose 172. She remains on Decadron, Levaquin. Anticoagulated with Eliquis. Progress note dated 11/12/2021. The patient is again seen today in room 254. She remains on BiPAP, with settings of 12/5 and 55%. She is on saline at 10 mL an hour, and Precedex at 0.9 mcg/kg per hour. Today, we will discontinue the saline. We'll put her on dextrose at 100 mL an hour. She is receiving Jevity at 50 mL an hour, which is goal. Her oxygenation has improved. Just a couple days ago, she was on 100%. Sodium 152, potassium 3.9, chlorides 119, CO2 27, BUN 34, creatinine 1.07. Chest x-ray shows persistent infiltrate throughout the right midlung and right lower lobe lung zones, as well as in the left lower lobe. 11/13/2021, the patient is being seen for follow-up in the intensive care unit. The patient is a case of severe coronary related pneumonia. She is a skilled nursing resident. She presented to us with hypoxic respiratory failure and currently she is on a BiPAP. This morning, the patient is on a BiPAP pressure of 12/5 cm of water with an FiO2 of 55%. She had a follow-up chest x-ray that showed evidence of pneumomediastinum extending to her neck area. No evidence of any pneumothorax. There is diffuse bilateral airspace disease consistent with colloid 19 related pneumonia. The patient is tolerating the BiPAP without any m ajor difficulties pH is able to generate a tidal volume of 600. Her minute ventilation is quite high at this point in time. Her respiratory rate in the low 30s. She is on Precedex which is running at 1.2 mcg/kg per minute. She is a bit confused. She is extremely weak. She has a weak cough. Unable to raise her arms or legs. She follows simple commands intermittently. She has been on Decadron 6 mg IV every 24 hours. Along with BiPAP therapy, the patient has an NG tube in place and she is receiving enteral feeding for nutritional support and the patient is currently on Jevity 1.2 at the rate of 50 mL an hour. In terms of her blood work, the patient's sodium is 145 and the patient received D5 water at the rate of 30 mL an hour. Sodium level is normalized and is down to 145. BUN is at 40 with a creatinine of 1.08. Glucose is at 211. Calcium level is at 9.3. The patient otherwise is on Levemir insulin 20 units daily along with NovoLog sliding scale coverage. She has been covered empirically with IV antibiotics and the patient is receiving levofloxacin 750 mg every 24 hours. Her pro-calcitonin level at time of admission was 1.1. Inflammatory markers are not available. Objective - Vital Signs Vital signs: Vital Signs Temp 97.6 F 11/13/21 03:00 Pulse 88 11/13/21 07:00 Resp 21 11/13/21 07:00 BP 134/76 11/13/21 07:00 Pulse Ox 91 L 11/13/21 07:00 FiO2 55 11/13/21 07:24 Intake & Output 11/12/21 11/13/21 11/13/21 18:59 06:59 18:59 Intake Total 2163.228 2637.672 247.393 Output Total 1290 1550 90 Balance 718.020 7038.672 157.393 Weight 92 kg Intake: IV 10 KVO 10 Intake, IV Titration 763.228 737.672 97.393 Amount Dexmedetomidine/0.9% NaCl 288.228 287.672 72.393 (Pmx) 400 mcg In Empty Bag 1 bag @ 0.2 MCG/KG/HR 4.763 mls/hr IV .Q21H [facility] Rx#:[id number] Dextrose 5% in Water 1, 475 300 25 000 ml @ 25 mls/hr IV . Q24H [facility] Rx#:[id number] Levofloxacin 750Mg-D5w 150 Pmx 750 mg In Dextrose/ Water 1 150ml.bag @ 100 mls/hr IVPB Q24H [facility] Rx#: [id number] Tube Feeding 600 700 50 Other 790 1200 100 Output: Urine 1290 1550 90 Other: Voiding Method Indwelling Catheter Indwelling Catheter - Exam Currently on BiPAP 12/5 Fio2 55%, sedated, in no acute distress, on Precedex 1.2, confused, very lethargic and weak and he is to be quite debilitated. The patient is on a full face mask with a BiPAP and she is able to tolerate. She has an NG tube in place. HEENT examination is grossly unremarkable. Neck supple. Full range of motion. No adenopathy thyromegaly or neck vein distention. Cardiovascular examination reveals regular rhythm rate. S1-S2 normal. No S3 or S4. No discernible murmur noted. Heart sounds are distant. Lungs reveal scattered bilateral rhonchi and crackles. Breath sounds equal. No wheezes. Abdomen soft, with bowel sounds. No tenderness.. Extremities are intact. No cyanosis clubbing or edema. Skin is without rash or lesion. Neurologic examination is difficult to assess. The patient has motor weakness in all 4 extremities. She is confused and unable to follow simple commands. - Labs CBC & Chem 7: 11/10/21 06:10 11/13/21 06:12 Labs: Abnormal Lab Results - Last 24 Hours (Table) 11/12/21 11/12/21 11/12/21 Range/Units 12:21 18:24 19:44 Sodium 148 H (137-145) mmol/L Chloride (98-107) mmol/L BUN (7-17) mg/dL Creatinine (0.52-1.04) mg/dL Glucose (74-99) mg/dL POC Glucose (mg/dL) 403 H 350 H (70-110) mg/dL 11/12/21 11/13/21 11/13/21 Range/Units 23:21 05:36 06:12 Sodium (137-145) mmol/L Chloride 112 H (98-107) mmol/L BUN 40 H (7-17) mg/dL Creatinine 1.08 H (0.52-1.04) mg/dL Glucose 211 H (74-99) mg/dL POC Glucose (mg/dL) 260 H 188 H (70-110) mg/dL Microbiology - Last 24 Hours (Table) 11/07/21 00:50 Blood Culture - Final Blood No Growth after 144 hours 11/07/21 00:40 Blood Culture - Final Blood No Growth after 144 hours 11/06/21 21:25 Blood Culture - Final Blood No Growth after 144 hours 11/08/21 18:47 Blood Culture - Preliminary Blood No Growth after 96 hours 11/09/21 12:25 Blood Culture - Preliminary Blood No Growth after 72 hours Assessment and Plan Plan: Acute hypoxemic respiratory failure secondary to bilateral pneumonia.BIPAP 1285, Fio2 55%, a complication of: 90 related pneumonia. The patient has developed evidence of pneumomediastinum extending to her neck. Oxygenation remains stable for now while the patient being on a BiPAP. The patient is currently on Decadron 6 mg IV 24 hours. Inflammatory markers are to follow. Chest x-ray was reviewed and there is evidence of pneumomediastinum No mediastinal secondary to above History of recent coronavirus infection, 10/28/2021, [facility] Acute mental status changes, presumably secondary to infection. The patient is currently on Precedex for sedation and synchrony with the BiPAP. The patient's Precedex is running at 1.2 mcg/kg per minute. Dysphagia, on EN for nutritional support and the patient is receiving Jevity at the rate of 50 mL an hour Hypernatremia, recovered with D5 water supplementation History of hypertension. History of hyperlipidemia. History of diabetes mellitus. History of hypothyroidism. History of schizophrenia. Prior history of tobacco use. History of heavy alcohol use. History of marijuana use. Plan Continue BiPAP for respiratory support and drop the FiO2 gradually to maintain a saturation above 90% Keep the NG tube in place for feeding Established triple-lumen catheter Daily chest x-rays and monitor the pneumomediastinum Repeat pro calcitonin level Check LDH, CRP and d-dimer is Change the doses of Eliquis 25 mg twice a day Wean off the Precedex and monitor the mental status High likelihood for future respiratory failure, intubation mechanical ventilat ion. Her CODE STATUS is full. Condition is critical. We'll continue to follow and make further recommendations based on her progress. This is a critically care evaluation was done and more than 30 minutes. This is excluding time to do any procedures. Time with Patient: Greater than 30
--- NOTE | 2021-11-13 13:34 | P.PCN ---
Date of Procedure: 11/13/21 Preoperative Diagnosis: COVID 19 pnemonia Postoperative Diagnosis: COVID 19 pneumonia Anesthesia: MAC, local Surgeon: Sharmin Slaughter Estimated Blood Loss (ml): 0 Pathology: none sent Condition: critical Disposition: ICU Operative Findings: Indication: Hemodynamic monitoring/Intravenous access. A time-out was completed verifying correct patient, procedure, site, positioning, and implant(s) or special equipment if applicable. The patient was placed in a dependent position appropriate for central line placement based on the vein to be cannulated. The patients left shoulder was prepped and draped in sterile fashion. 1% Lidocaine was used to anesthetize the surrounding skin area. A triple lumen 9F Cordis catheter was introduced into the subclavian vein using Seldinger technique. The catheter was threaded smoothly over the guide wire and appropriate blood return was obtained. Each smitha men of the catheter was evacuated of air and flushed with sterile saline. The catheter was then sutured in place to the skin and a sterile dressing applied. Perfusion to the extremity distal to the point of catheter insertion was checked and found to be adequate. The patient tolerated the procedure well and there were no complications.
--- NOTE | 2021-11-13 14:22 | P.PN ---
Subjective Progress Note Date: 11/13/21 Encephalopathy; multifactorial Acute hypoxemic respiratory failure secondary due to pneumonia Acute hypernatremia--trending down JAYLA 50-year-old female, who is brought in by the [place] emergency services. She apparently resides at [facility] up in that area. She apparently has a history of schizophrenia, as well as a history of recent infection with coronavirus. The patient was brought in because of mental status changes, and also low saturations. Apparently the patient was evaluated there and thought to have pneumonia. The patient was treated with Levaquin here. Currently, she seen in the emergency room, room 11. She is on 15 L high flow oxygen. She's getting saline at 75 mL an hour. I did have the opportunity to speak to the patient's , name Art. He was able to provide some history. The patient is at the intermediate as mentioned above, but is unable to prepare food for herself. Her mental status varies hour to hour and day today according to him. The patient herself can give me no history. She sees been here in the emergency department, she's been moaning and groaning. Her chest x-ray shows bilateral patchy infiltrates. A blood gas was done and showed a pO2 of 89, pCO2 35, and pH is 7.332. She apparently has a history of diabetes, hypertension, hyperlipidemia, and hypothyroidism. 11/11/2021 Patient is seen and evaluated in follow-up in the intensive care unit; remains on BiPAP 12/5 and 70% FiO2 to maintain O2 saturations in the 90s. She remains on dexmedetomidine at 1 mcg/kg per hour. D5 W2 125 ML's per hour. She is being nourished with Jevity 1.5 at 40 ML's per hour with a goal of 50 ML's per hour. She remains on antibiotics in the form of Levaquin. She is anticoagulated with Eliquis. Continued on Decadron. Asked x-ray shows increasing infiltrate in the right midlung zone and right lower lobe. Also developing infiltrate in the left perihilar region. Blood cultures reveal no growth. Sodium 144. Potassium 3.8. Bicarb 29. Creatinine 1.02. Glucose 266. AST 24. ALT 18. 11/12/2021 Patient is seen and evaluated in room at bedside; remains in ICU; per nursing staff patient is slightly more awake compared to yesterday Vital signs reveal temperature of 97.7, pulse 118, respiration 35, blood pressure of 91/59 with O2 saturation 92% with an FiO2 of 55% Labs are reviewed which revealed sodium of 152, potassium 2.9, BUN/creatinine of 304/1.07 with blood glucose of 186 Neurology on board for encephalopathy; likely related to COVID-19 pneumonia with metabolic encephalopathy given hypernatremia and acute renal injury; less likely meningoencephalitis; EEG is ordered and pending; patient remains on thiamine 100 mg daily; we will continue to have neuro checks every 3 hours Nephron board for acute renal injury secondary to septic syndrome; creatinine is improved; hypernatremia is deemed secondary to loss of free water due to high blood sugars; increase water intake via PEG tube is recommended cc per hour; labs will be redrawn later in the day; further recommendations pending 11/13/2021 Patient is seen in follow-up continues to be in the ICU with multiple medical consultations following. Patient is maintained on BiPAP with pulmonary wet milling wheel operator following closely. FiO2 is currently at 65% which is currently increased and PEEP remains 5. Patient also continues with albuterol treatments along with IV dexamethasone. Patient also with hypernatremia currently maintained on D5 and water with improvement in sodium and currently 145 and will continue. Blood sugars have been elevated and patient is maintained on every 6 sliding scale and long-acting and recommend continuing with Accu-Cheks before meals and at bedtime and as needed and will increase long-acting and continue to monitor closely. Chest x-ray this morning showing air in the soft tissues of the next as well as the mediastinum compatible with pneumomediastinum with bilateral infiltrates that are unchanged. Patient is afebrile currently. Patient also continues on IV Levaquin and will continue. Review of systems: Unable to obtain as patient is lethargic and maintained on Precedex Active Medications Albuterol Sulfate (Albuterol Hfa Inhaler) 2 puff INHALATION RT-QID PRN PRN Reason: Shortness Of Breath Or Wheezing Last Admin: 11/12/21 19:01 Dose: 2 puff Apixaban (Apixaban 5 Mg Tab) 5 mg PO DAILY@0900 [facility]; Protocol Last Admin: 11/13/21 09:10 Dose: 5 mg Aspirin (Aspirin 81 Mg) 81 mg PO DAILY@0900 [facility] Last Admin: 11/13/21 09:10 Dose: 81 mg Atorvastatin Calcium (Atorvastatin 40 Mg Tab) 40 mg PO HS@2100 [facility] Last Admin: 11/12/21 19:51 Dose: 40 mg Clozapine (Clozapine 100 Mg Tab) 200 mg PO TID@0900,1300,2100 [facility] Stop: 11/15/21 23:00 Last Admin: 11/13/21 11:59 Dose: 200 mg Dexamethasone Sodium Phosphate (Dexamethasone Sod Phosphate 10 Mg/Ml 1 Ml Vial) 6 mg IVP DAILY [facility] Last Admin: 11/13/21 09:10 Dose: 6 mg Dextrose/Water (Dextrose 5%-Water Iv Soln) 1,000 mls @ 25 mls/hr IV .Q24H [facility] Last Admin: 11/13/21 03:31 Dose: 25 mls/hr Dexmedetomidine HCl 400 mcg/ (IV Solution) 100 mls @ 4.763 mls/hr IV .Q21H [facility]; Protocol Last Admin: 11/13/21 12:12 Dose: 1.2 mcg/kg/hr, 28.576 mls/hr Levofloxacin 750 mg/ IV (Solution) 150 mls @ 100 mls/hr IVPB Q24H [facility]; Protocol Last Admin: 11/12/21 19:52 Dose: 100 mls/hr Sodium Chloride (Saline 0.45%) 1,000 mls @ 75 mls/hr IV .[id number] [facility] Insulin Aspart (Insulin Aspart (Novolog) 100 Unit/Ml Vial) 0 unit SQ Q6HR [facility]; Protocol Last Admin: 11/13/21 11:59 Dose: 5 unit Insulin Aspart (Insulin Aspart (Novolog) 100 Unit/Ml Vial) 10 unit SQ ONCE ONE Stop: 11/13/21 14:31 Insulin Detemir (Insulin Detemir (Levemir) 100 Unit/Ml Syr) 20 unit SQ DAILY@0700 [facility] Lamotrigine (Lamotrigine 25 Mg Tab) 25 mg PO BID@0900,2100 [facility] Last Admin: 11/13/21 09:10 Dose: 25 mg Levothyroxine Sodium (Levothyroxine 100 Mcg Tab) 100 mcg PO DAILY@0600 [facility] Last Admin: 11/13/21 06:06 Dose: 100 mcg Miscellaneous Information (Pneumonia Protocol Utilized 1 Each Misc) 1 each PO ONCE PRN PRN Reason: Per Protocol Miscellaneous Information (Potassium Replacement Protocol 1 Each Misc) 1 each MISCELLANE DAILY PRN; Protocol PRN Reason: Per Protocol Naloxone HCl (Naloxone 0.4 Mg/Ml 1 Ml Vial) 0.2 mg IV Q2M PRN PRN Reason: Opioid Reversal Pantoprazole Sodium (Pantoprazole 40 Mg/10 Ml Vial) 40 mg IV DAILY [facility] Last Admin: 11/13/21 09:11 Dose: 40 mg Thiamine HCl (Thiamine 100 Mg Tab) 100 mg PO DAILY [facility] Last Admin: 11/13/21 09:10 Dose: 100 mg Physical exam: GENERAL EXAM: 50-year-old female patient, currently on BiPAP 12/5 and 65% FiO2 and PEEP is 5 EYES: Normal reaction of pupils, equal size. NOSE: Clear with pink turbinates. THROAT: No erythema or exudates. NECK: No masses, no JVD. Subcutaneous emphysema noted of the neck and chest CHEST: No chest wall deformity. LUNGS: Diminished breath sounds bilaterally with some coarse rhonchi and subcutaneous edema noted with crackles at the bases CVS: S1 and S2 muffled ABDOMEN: No hepatosplenomegaly, obese, normal bowel sounds, no guarding or rigidity. SKIN: No rashes Assessment: Encephalopathy, multifactorial: Predominately hypoxic encephalopathy due to COVID-19 pneumonia. Also component of metabolic encephalopathy (hypernatremia, JAYLA) History of seizure Acute hypoxemic respiratory failure secondary to pneumonia Acute hypernatremia JAYLA Recent COVID-19 infection Hypertension History of diabetes History of hypothyroidism Schizoaffective disorder Primary history of tobacco use History of heavy alcohol use History of marijuana use GI prophylaxis DVT prophylaxis Full code Plan: Recommend continue with BiPAP and close monitoring with pulmonary wet milling wheel operator following. Patient with subcutaneous emphysema and noted pneumoperitoneum on x- ray and recommend repeat x-ray in the a.m. Patient also continues on Precedex and will continue and nursing staff working on weaning as tolerated Patient is continued on D5 and water and sodium improving at 145 today and will continue Blood sugars elevated recommending sliding scale and Accu-Cheks before meals and at bedtime into a.m. and will also increase long-acting insulin Recommend continue tube feeds Patient is continued on IV dexamethasone along with IV Levaquin and will continue. Multiple medical consultations following and will continue to monitor closely. Recommend repeat labs in a.m. Due to multiple convex medical issues, prognosis is extremely guarded. The impression and plan of care has been dictated by Sumi Baldwin, Nurse Practitioner as directed. Dr. Pan MD I have performed a history and examination and MDM of this patient, discussed the same with the dictator, and agree with the dictator's assessment and plan as written ,documented as a scribe. Based on total visit time, I have performed more than 50% of the visit. Objective - Vital Signs Vital signs: Vital Signs Temp 99.2 F 11/13/21 12:00 Pulse 98 11/13/21 13:00 Resp 18 11/13/21 13:00 BP 104/80 11/13/21 13:00 Pulse Ox 97 11/13/21 13:00 FiO2 65 11/13/21 12:00 Intake & Output 11/12/21 11/13/21 11/13/21 18:59 06:59 18:59 Intake Total 2163.228 2637.672 1445.979 Output Total 1290 1550 615 Balance 283.994 7130.672 830.979 Weight 92 kg Intake: IV 10 150 D5W 150 KVO 10 Intake, IV Titration 763.228 737.672 185.979 Amount Dexmedetomidine/0.9% NaCl 288.228 287.672 160.979 (Pmx) 400 mcg In Empty Bag 1 bag @ 0.2 MCG/KG/HR 4.763 mls/hr IV .Q21H [facility] Rx#:[id number] Dextrose 5% in Water 1, 475 300 25 000 ml @ 25 mls/hr IV . Q24H [facility] Rx#:[id number] Levofloxacin 750Mg-D5w 150 Pmx 750 mg In Dextrose/ Water 1 150ml.bag @ 100 mls/hr IVPB Q24H [facility] Rx#: [id number] Tube Feeding 600 700 350 Other 790 1200 760 Output: Urine 1290 1550 615 Other: Voiding Method Indwelling Catheter Indwelling Catheter Indwelling Catheter - Labs CBC & Chem 7: 11/10/21 06:10 11/13/21 06:12 Labs: Abnormal Lab Results - Last 24 Hours (Table) 11/12/21 11/12/21 11/12/21 Range/Units 18:24 19:44 23:21 Sodium 148 H (137-145) mmol/L Chloride (98-107) mmol/L BUN (7-17) mg/dL Creatinine (0.52-1.04) mg/dL Glucose (74-99) mg/dL POC Glucose (mg/dL) 350 H 260 H (70-110) mg/dL 11/13/21 11/13/21 11/13/21 Range/Units 05:36 06:12 11:52 Sodium (137-145) mmol/L Chloride 112 H (98-107) mmol/L BUN 40 H (7-17) mg/dL Creatinine 1.08 H (0.52-1.04) mg/dL Glucose 211 H (74-99) mg/dL POC Glucose (mg/dL) 188 H 293 H (70-110) mg/dL Microbiology - Last 24 Hours (Table) 11/07/21 00:50 Blood Culture - Final Blood No Growth after 144 hours 11/07/21 00:40 Blood Culture - Final Blood No Growth after 144 hours 11/06/21 21:25 Blood Culture - Final Blood No Growth after 144 hours 11/08/21 18:47 Blood Culture - Preliminary Blood No Growth after 96 hours 11/09/21 12:25 Blood Culture - Preliminary Blood No Growth after 72 hours
[2021-11-13] MEDS ORDERED: INSULIN ASPART (NovoLOG) 100 UNIT/ML VIAL SQ ONE (14:30)
[2021-11-13] MEDS: SODIUM CHLORIDE 0.45% 1,000 ML IV SCH (14:43)
[2021-11-13 15:22] LABS: Glucose,Whole Blood 219 mg/dL (70-110)
[2021-11-13 17:11] LABS: Glucose,Whole Blood 215 mg/dL (70-110)
[2021-11-13] MEDS: ATORVASTATIN 40 MG TAB PO SCH (20:00)
[2021-11-13] MEDS: LEVOFLOXACIN 750MG-D5W PMX 750 MG in DEXTROSE/WATER 1 150ML.BAG IVPB SCH (20:00)
[2021-11-13 23:28] LABS: Glucose,Whole Blood 151 mg/dL (70-110)
[2021-11-14] MEDS: SODIUM CHLORIDE 0.45% 1,000 ML IV SCH ×3 (01:50→16:50)
[2021-11-14] MEDS: DEXMEDETOMIDINE/0.9% NACL(PMX) 400 MCG in EMPTY BAG 1 BAG IV SCH ×4 (04:11→17:15)
[2021-11-14] MEDS: DEXTROSE 5% IN WATER 1,000 ML IV SCH (04:12)
[2021-11-14 05:00] LABS: Glucose,Whole Blood 178 mg/dL (70-110)
[2021-11-14] MEDS: INSULIN ASPART (NovoLOG) 100 UNIT/ML VIAL SQ SCH ×3 (05:17→18:08)
[2021-11-14] MEDS: LEVOTHYROXINE 100 MCG TAB PO SCH (05:17)
[2021-11-14 06:46] LABS: Glucose,Whole Blood 174 mg/dL (70-110)
[2021-11-14] MEDS: INSULIN DETEMIR (LEVEMIR) 100 UNIT/ML SYR SQ SCH (06:47)
[2021-11-14 07:21] LABS: HGB 11.5 gm/dL (11.4-16.0); Hypochromasia Marked; MCH 26.8 pg (25.0-35.0); MCV 86.6 fL (80.0-100.0); Mean Platelet Volume 8.9; Platelet Count 251 k/uL (150-450); RBC 4.28 m/uL (3.80-5.40); RDW 15.3 % (11.5-15.5)
[2021-11-14 07:40] LABS: Calcium 8.9 mg/dL (8.4-10.2); Potassium 4.3 mmol/L (3.5-5.1)
[2021-11-14] MEDS ORDERED: bisacodyL 10 MG SUPP RECTAL STA (07:45)
[2021-11-14] MEDS: APIXABAN 5 MG TAB PO SCH ×2 (08:06→21:03)
[2021-11-14] MEDS: cloZAPine 100 MG TAB PO SCH ×3 (08:06→21:03)
[2021-11-14] MEDS: PANTOPRAZOLE 40 MG/10 ML VIAL IV SCH (08:06)
[2021-11-14] MEDS: THIAMINE 100 MG TAB PO SCH (08:06)
[2021-11-14] MEDS: ASPIRIN 81 MG PO SCH (08:06)
[2021-11-14] MEDS: DEXAMETHASONE SOD PHOSPHATE 10 MG/ML 1 ML VIAL IVP SCH (08:06)
[2021-11-14] MEDS: lamoTRIgine 25 MG TAB PO SCH ×2 (08:06→21:03)
--- NOTE | 2021-11-14 08:22 | P.PN ---
Subjective Progress Note Date: 11/14/21 50-year-old female, who is brought in by the [place] emergency services. She apparently resides at [facility] in that area. She apparently has a history of schizophrenia, as well as a history of recent infection with coronavirus. The patient was brought in because of mental status changes, and also low saturations. Apparently the patient was evaluated there and thought to have pneumonia. The patient was treated with Levaquin here. Currently, she seen in the emergency room, room 11. She is on 15 L high flow oxygen. She's getting saline at 75 mL an hour. I did have the opportunity to speak to the patient's , name Art. He was able to provide some history. [facility], but is unable to prepare food for herself. Her mental status varies hour to hour and day today according to him. The patient herself can give me no history. She sees been here in the emergency department, she's been moaning and groaning. Her ch est x-ray shows bilateral patchy infiltrates. A blood gas was done and showed a pO2 of 89, pCO2 35, and pH is 7.332. She apparently has a history of diabetes, hypertension, hyperlipidemia, and hypothyroidism. White count 11.5, hemoglobin 12.6, hematocrit 41.3, with a normal platelet count. Sodium 157, potassium 4.3, chlorides 124, CO2 19, anion gap 14, BUN 50, creatinine 2.04. Her lactic acid was 1.2. Pro-calcitonin level is pending. Urine is yellow and cloudy. There is 1+ protein. Trace blood. Small positive leukocyte esterase, 7 RBCs, 9 WBCs, and many bacteria. Chest x-ray shows patchy bilateral infiltrates. Progress note dated 11/08/2021. 50-year-old female seen in the emergency department yesterday. She was brought in from one of the local nursing homes, with complaints of mental status changes, low saturations, and possibly pneumonia. The patient was initially seen in the ER, and then transferred to the intensive care, where she was seen yesterday and today, in room 254. She's currently on BiPAP. BiPAP settings are 12/5 and 65%. He is currently receiving Levaquin. Microbiologic cultures are negative. She did test positive for coronavirus infection. She's getting D5W 100 mL an hour Precedex at 0.5 mcg/kg per hour. White count was 12.7, hemoglobin 11.4, hematocrit 37.2, and platelet count 270,000. Sodium 153, potassium 4.5, chlorides 119, CO2 27, with a BUN and creatinine of 60, and 1.55. Chest x-ray continues to show bilateral airspace disease. Progress note dated 11/09/2021. 50-year-old female seen in consultation 2 days ago. She was brought in from one of the local nursing homes with complaints of mental status changes, possible pneumonia, and low saturations. The patient was seen initially in the emergency department, and was admitted to the intensive care unit. She remains on BiPAP, with settings of 12/5 and 80%. She's getting dexmedetomidine at 0.5 mcg/kg/h. She's getting D5W at 100 mL an hour. Today, we will attempt to get her off of dexmedetomidine, and replace it with Haldol IM. According to the nurse, she had a very uneventful night. White count 14.6, hemoglobin 11.4, hematocrit 38.2, and platelet count 315,000. Sodium 149, potassium 4.2, chlorides 117, CO2 24, BUN 44, and creatinine 1.27. Calcium is normal. Microbiologic studies are thus far negative. No chest x-ray today. CAT scan of the brain did not show anything acute. The patient is seen today 11/10/2021 in follow-up in the intensive care unit. S he remains on BiPAP 12/5 and 80% FiO2. She has required dexmedetomidine at 0.8 mcg/kg/h. Currently she is resting comfortably in bed. Chest x-ray reveals bilateral airspace disease. No evidence of pneumothorax or pleural effusions. Nasogastric tube remains in place. CT scan of the brain reveals an atrophic and chronic small vessel ischemic changes without acute intracranial process. Blood cultures revealed no growth. White count 15.2. Hemoglobin 11.2. Platelets 298. Sodium 150. Potassium 4.0. Chloride 118. BUN 36. Creatinine 1.13. Glucose 172. She remains on Decadron, Levaquin. Anticoagulated with Eliquis. Progress note dated 11/12/2021. The patient is again seen today in room 254. She remains on BiPAP, with settings of 12/5 and 55%. She is on saline at 10 mL an hour, and Precedex at 0.9 mcg/kg per hour. Today, we will discontinue the saline. We'll put her on dextrose at 100 mL an hour. She is receiving Jevity at 50 mL an hour, which is goal. Her oxygenation has improved. Just a couple days ago, she was on 100%. Sodium 152, potassium 3.9, chlorides 119, CO2 27, BUN 34, creatinine 1.07. Chest x-ray shows persistent infiltrate throughout the right midlung and right lower lobe lung zones, as well as in the left lower lobe. 11/13/2021, the patient is being seen for follow-up in the intensive care unit. The patient is a case of severe coronary related pneumonia. She is a [facility] resident. She presented to us with hypoxic respiratory failure and currently she is on a BiPAP. This morning, the patient is on a BiPAP pressure of 12/5 cm of water with an FiO2 of 55%. She had a follow-up chest x-ray that showed evidence of pneumomediastinum extending to her neck area. No evidence of any pneumothorax. There is diffuse bilateral airspace disease consistent with colloid 19 related pneumonia. The patient is tolerating the BiPAP without any m ajor difficulties pH is able to generate a tidal volume of 600. Her minute ventilation is quite high at this point in time. Her respiratory rate in the low 30s. She is on Precedex which is running at 1.2 mcg/kg per minute. She is a bit confused. She is extremely weak. She has a weak cough. Unable to raise her arms or legs. She follows simple commands intermittently. She has been on Decadron 6 mg IV every 24 hours. Along with BiPAP therapy, the patient has an NG tube in place and she is receiving enteral feeding for nutritional support and the patient is currently on Jevity 1.2 at the rate of 50 mL an hour. In terms of her blood work, the patient's sodium is 145 and the patient received D5 water at the rate of 30 mL an hour. Sodium level is normalized and is down to 145. BUN is at 40 with a creatinine of 1.08. Glucose is at 211. Calcium level is at 9.3. The patient otherwise is on Levemir insulin 20 units daily along with NovoLog sliding scale coverage. She has been covered empirically with IV antibiotics and the patient is receiving levofloxacin 750 mg every 24 hours. Her pro-calcitonin level at time of admission was 1.1. Inflammatory markers are not available. 11/14/2021, the patient is very much encephalopathic and lethargic. She is apparent on Precedex. While off the medication, the patient gets agitated and thrashes around and she becomes asynchronous with a BiPAP machine. Otherwise, while on Precedex, the patient is calm and comfortable and synchronous with the BiPAP machine. She is extremely lethargic, extremely weak, quite debilitated at this point in time. She remains BiPAP dependent and the current BiPAP settings of 12/5 with an FiO2 of 55%. The chest x-ray from today shows stable findings. No significant interval change. No worsening of the pneumomediastinum. NG tube is in a good location. The patient is generating tidal volumes of above 500 and her current respiratory rate is around 25 with a minute ventilation of 12.7 L per minute. She did have a bout of aspiration yesterday. This did not affect her oxygenation. The white cell causes 11 with a hemoglobin of 11.5. BUN is at 38 and a creatinine of 1.04 and his sodium level of 142. The patient remains on Decadron 6 mg IV every 24 hours. The patient remains on Levemir insulin 20 units subcu daily along with Novolin 70/30 coverage. The patient on half-normal saline at the rate of 75 mL's an hour. Electrolytes are all stable for now. No other significant events overnight. No seizure activity. The patient remains on Jevity 1.5 at the rate of 50 an hour. She is tolerating her tube feeds well. No abdominal distention. No bowel activity and the patient is going to receive a laxative suppository today. She is afebrile. Awaiting inflammatory markers. We will also repeat full calcitonin level. We also repeat d-dimer's. Objective - Vital Signs Vital signs: Vital Signs Temp 97.7 F 11/14/21 04:00 Pulse 80 11/14/21 07:00 Resp 20 11/14/21 07:00 BP 114/72 11/14/21 07:00 Pulse Ox 95 11/14/21 07:00 FiO2 55 11/14/21 07:00 Intake & Output 11/13/21 11/14/21 11/14/21 18:59 06:59 18:59 Intake Total 2470.979 3150.000 250 Output Total 1315 2005 100 Balance 5105.936 1535.000 150 Weight 92 kg 93.2 kg Intake: IV 475 1200 100 D5W 250 275 25 Levofloxacin 750Mg-D5w 100 Pmx 750 mg In Dextrose/ Water 1 150ml.bag @ 100 mls/hr IVPB Q24H DENISSE Rx#: [id number] Sodium Chloride 0.45% 1, 225 825 75 000 ml @ 75 mls/hr IV . [id number] DENISSE Rx#:[id number] Intake, IV Titration 285.979 300.000 Amount Dexmedetomidine/0.9% NaCl 260.979 300.000 (Pmx) 400 mcg In Empty Bag 1 bag @ 0.2 MCG/KG/HR 4.763 mls/hr IV .Q21H DENISSE Rx#:[id number] Dextrose 5% in Water 1, 25 000 ml @ 25 mls/hr IV . Q24H DENISSE Rx#:[id number] Tube Feeding 550 550 50 Other 1160 1100 100 Output: Urine 1315 2004 100 Other: Voiding Method Indwelling Catheter Indwelling Catheter - Exam Currently on BiPAP 12/5 Fio2 55%, sedated, in no acute distress, on Precedex 1.0, confused, very lethargic and weak and he is to be quite debilitated. The patient is on a full face mask with a BiPAP and she is able to tolerate. She has an NG tube in place. HEENT examination is grossly unremarkable. Neck supple. Full range of motion. No adenopathy thyromegaly or neck vein dist ention. Cardiovascular examination reveals regular rhythm rate. S1-S2 normal. No S3 or S4. No discernible murmur noted. Heart sounds are distant. Lungs reveal scattered bilateral rhonchi and crackles. Breath sounds equal. No wheezes. Abdomen soft, with bowel sounds. No tenderness.. Extremities are intact. No cyanosis clubbing or edema. Skin is without rash or lesion. Neurologic examination is difficult to assess. The patient has motor weakness in all 4 extremities. She is confused and unable to follow simple commands. Patient remains encephalopathic. She is not following any commands even while off sedation. Neurologic exam is nonfocal. Pupils are equal and reactive to light. No focal neurological deficits. - Labs CBC & Chem 7: 11/14/21 07:07 11/14/21 07:07 Labs: Abnormal Lab Results - Last 24 Hours (Table) 11/13/21 11/13/21 11/13/21 Range/Units 11:52 15:20 17:10 WBC (3.8-10.6) k/uL Chloride (98-107) mmol/L BUN (7-17) mg/dL Glucose (74-99) mg/dL POC Glucose (mg/dL) 293 H 219 H 215 H (70-110) mg/dL 11/13/21 11/14/21 11/14/21 Range/Units 23:25 04:57 06:44 WBC (3.8-10.6) k/uL Chloride (98-107) mmol/L BUN (7-17) mg/dL Glucose (74-99) mg/dL POC Glucose (mg/dL) 151 H 178 H 174 H (70-110) mg/dL 11/14/21 11/14/21 Range/Units 07:07 07:07 WBC 11.0 H (3.8-10.6) k/uL Chloride 108 H (98-107) mmol/L BUN 38 H (7-17) mg/dL Glucose 185 H (74-99) mg/dL POC Glucose (mg/dL) (70-110) mg/dL Microbiology - Last 24 Hours (Table) 11/08/21 18:47 Blood Culture - Preliminary Blood No Growth after 120 hours 11/09/21 12:25 Blood Culture - Preliminary Blood No Growth after 96 hours 11/07/21 00:50 Blood Culture - Final Blood No Growth after 144 hours 11/07/21 00:40 Blood Culture - Final Blood No Growth after 144 hours Assessment and Plan Plan: Acute hypoxemic respiratory failure secondary to bilateral pneumonia.BIPAP 1285, Fio2 55%, a complication of COVID 19 related pneumonia. The patient has developed evidence of pneumomediastinum extending to her neck. Oxygenation remains stable for now while the patient being on a BiPAP. The patient is currently on Decadron 6 mg IV 24 hours. Inflammatory markers are to follow. Chest x-ray was reviewed and there is evidence of pneumomediastinum. On today's evaluation, the patient is clinically unchanged. Still BiPAP dependent. Chest x-ray shows no interval worsening. Pneumomediastinum secondary to above, stable. History of recent coronavirus infection, 10/28/2021, [facility] Acute mental status changes, presumably secondary to infection. The patient is currently on Precedex for sedation and synchrony with the BiPAP. The patient's Precedex is running at 1.0 mcg/kg per minute. Dysphagia, on EN for nutritional support and the patient is receiving Jevity at the rate of 50 mL an hour Hypernatremia, recovered with D5 water supplementation History of hypertension. History of hyperlipidemia. History of diabetes mellitus. History of hypothyroidism. History of schizophrenia. Prior history of tobacco use. History of heavy alcohol use. History of marijuana use. Plan Continue BiPAP for respiratory support and drop the FiO2 gradually to maintain a saturation above 90% Chest x-ray findings are stable for now Aspiration precautions Keep the NG tube in place for feeding Give the patient a laxative suppository to facilitate a bowel movement activity Repeat pro calcitonin level Check LDH, CRP and d-dimer is Change the doses of Eliquis 5 mg twice a day Wean off the Precedex and monitor the mental status Condition is stable compared to yesterday. Probably neurologically slightly more awake and she's not following commands. There is obvious signs of: COVID 19 related encephalopathy in addition to underlying schizophrenia. Possibly component of delirium in addition. High likelihood for future respiratory failure, intubation mechanical ventilation. Her CODE STATUS is full. Condition is critical. We'll continue to follow and make further recommendations based on her progress. This is a critically care evaluation was done and more than 30 minutes. This is excluding time to do any procedures. Time with Patient: Greater than 30
--- NOTE | 2021-11-14 08:44 | XR ---
EXAMINATION TYPE: XR chest 1V portable DATE OF EXAM: 11/14/2021 COMPARISON: 11/13/2021 HISTORY: Shortness of breath TECHNIQUE: Single frontal view of the chest is obtained. FINDINGS: Air is seen in the soft tissues of the neck as well as in the mediastinum compatible with pneumomediastinum. NG tube stable. Bilateral infiltrates are unchanged. No sizable pleural effusion o r pneumothorax. Heart size normal. Left-sided central line with tip overlying the SVC. No sizable pne umothorax IMPRESSION: 1. There is interval reduction in degree of pneumomediastinum. Bilateral patchy infiltrates are stabl e.
[2021-11-14 09:10] LABS: Band Neutrophils % 6 %; Lymphocytes # (M) 1.21 k/uL (1.0-4.8); Metamyelocytes # (M) 0.11 k/uL (0); Metamyelocytes % 1 %; Monocytes # (M) 0.88 k/uL (0-1.0); Myelocytes # (M) 0.33 k/uL (0); Myelocytes % 3 %; Neutrophils % (M) 73 %; Nucleated Red Blood Cells 0 /100 WBC (0-0); Total Cells Counted 200
[2021-11-14 09:15] LABS: C Reactive Protein 3.6 mg/dL (<1.0)
[2021-11-14 11:40] LABS: Glucose,Whole Blood 264 mg/dL (70-110)
[2021-11-14 18:03] LABS: Glucose,Whole Blood 251 mg/dL (70-110)
[2021-11-14] MEDS: ATORVASTATIN 40 MG TAB PO SCH (21:03)
[2021-11-14] MEDS: LEVOFLOXACIN 750MG-D5W PMX 750 MG in DEXTROSE/WATER 1 150ML.BAG IVPB SCH (21:16)
[2021-11-14 23:38] LABS: Glucose,Whole Blood 214 mg/dL (70-110)
[2021-11-15] MEDS: INSULIN ASPART (NovoLOG) 100 UNIT/ML VIAL SQ SCH ×4 (00:17→17:19)
[2021-11-15] MEDS: DEXMEDETOMIDINE/0.9% NACL(PMX) 400 MCG in EMPTY BAG 1 BAG IV SCH ×5 (00:26→20:07)
[2021-11-15] MEDS: LEVOTHYROXINE 100 MCG TAB PO SCH (05:14)
[2021-11-15 06:26] LABS: Glucose,Whole Blood 153 mg/dL (70-110)
[2021-11-15] MEDS: INSULIN DETEMIR (LEVEMIR) 100 UNIT/ML SYR SQ SCH (06:30)
[2021-11-15] MEDS: ALBUTEROL HFA INHALER INHALATION PRN ×4 (07:31→18:53)
[2021-11-15 08:08] LABS: HCT 39.3 % (34.0-46.0); HGB 12.5 gm/dL (11.4-16.0); Hypochromasia Marked; MCH 27.3 pg (25.0-35.0); MCHC 31.9 g/dL (31.0-37.0); MCV 85.5 fL (80.0-100.0); Mean Platelet Volume 8.7; Platelet Count 306 k/uL (150-450); RDW 15.4 % (11.5-15.5)
--- NOTE | 2021-11-15 08:12 | XR ---
EXAMINATION TYPE: XR chest 1V DATE OF EXAM: 11/15/2021 COMPARISON: 11/14/2021 HISTORY: Shortness of breath TECHNIQUE: Single frontal view of the chest is obtained. FINDINGS: Air is seen in the soft tissues of the neck as well as in the mediastinum compatible with pneumomediastinum. NG tube stable. Bilateral infiltrates are unchanged. No sizable pleural effusion o r pneumothorax. Heart size normal. Left-sided central line with tip overlying the SVC. No sizable pne umothorax IMPRESSION: 1. Persistent pneumomediastinum similar to the prior exam. 2. Diffuse bilateral infiltrate stable.
--- NOTE | 2021-11-15 08:35 | P.PN ---
Subjective Progress Note Date: 11/14/21 Encephalopathy; multifactorial Acute hypoxemic respiratory failure secondary due to pneumonia Acute hypernatremia--trending down JAYLA 50-year-old female, who is brought in by the [place] emergency services. She apparently resides at [facility] up in that area. She apparently has a history of schizophrenia, as well as a history of recent infection with coronavirus. The patient was brought in because of mental status changes, and also low saturations. Apparently the patient was evaluated there and thought to have pneumonia. The patient was treated with Levaquin here. Currently, she seen in the emergency room, room 11. She is on 15 L high flow oxygen. She's getting saline at 75 mL an hour. I did have the opportunity to speak to the patient's , name Art. He was able to provide some history. The patient is at the [facility] as mentioned above, but is unable to prepare food for herself. Her mental status varies hour to hour and day today according to him. The patient herself can give me no history. She sees been here in the emergency department, she's been moaning and groaning. Her chest x-ray shows bilateral patchy infiltrates. A blood gas was done and showed a pO2 of 89, pCO2 35, and pH is 7.332. She apparently has a history of diabetes, hypertension, hyperlipidemia, and hypothyroidism. 11/11/2021 Patient is seen and evaluated in follow-up in the intensive care unit; remains on BiPAP 12/5 and 70% FiO2 to maintain O2 saturations in the 90s. She remains on dexmedetomidine at 1 mcg/kg per hour. D5 W2 125 ML's per hour. She is being nourished with Jevity 1.5 at 40 ML's per hour with a goal of 50 ML's per hour. She remains on antibiotics in the form of Levaquin. She is anticoagulated with Eliquis. Continued on Decadron. Asked x-ray shows increasing infiltrate in the right midlung zone and right lower lobe. Also developing infiltrate in the left perihilar region. Blood cultures reveal no growth. Sodium 144. Potassium 3.8. Bicarb 29. Creatinine 1.02. Glucose 266. AST 24. ALT 18. 11/12/2021 Patient is seen and evaluated in room at bedside; remains in ICU; per nursing staff patient is slightly more awake compared to yesterday Vital signs reveal temperature of 97.7, pulse 118, respiration 35, blood pressure of 91/59 with O2 saturation 92% with an FiO2 of 55% Labs are reviewed which revealed sodium of 152, potassium 2.9, BUN/creatinine of 304/1.07 with blood glucose of 186 Neurology on board for encephalopathy; likely related to COVID-19 pneumonia with metabolic encephalopathy given hypernatremia and acute renal injury; less likely meningoencephalitis; EEG is ordered and pending; patient remains on thiamine 100 mg daily; we will continue to have neuro checks every 3 hours Nephron board for acute renal injury secondary to septic syndrome; creatinine is improved; hypernatremia is deemed secondary to loss of free water due to high blood sugars; increase water intake via PEG tube is recommended cc per hour; labs will be redrawn later in the day; further recommendations pending 11/13/2021 Patient is seen in follow-up continues to be in the ICU with multiple medical consultations following. Patient is maintained on BiPAP with pulmonary clinical research manager following closely. FiO2 is currently at 65% which is currently increased and PEEP remains 5. Patient also continues with albuterol treatments along with IV dexamethasone. Patient also with hypernatremia currently maintained on D5 and water with improvement in sodium and currently 145 and will continue. Blood sugars have been elevated and patient is maintained on every 6 sliding scale and long-acting and recommend continuing with Accu-Cheks before meals and at bedtime and as needed and will increase long-acting and continue to monitor closely. Chest x-ray this morning showing air in the soft tissues of the next as well as the mediastinum compatible with pneumomediastinum with bilateral infiltrates that are unchanged. Patient is afebrile currently. Patient also continues on IV Levaquin and will continue. 11/14/2021 Patient continues to be in the ICU with multiple medical consultations following including pulmonary. Patient is maintained on BiPAP and continues on Precedex with continued attempts at weaning. FiO2 is now 55% and settings of 12/5. Chest x-ray today shows interval reduction in the degree of the pneumomediastinum with bilateral patchy infiltrates that are stable. WBC is trending down and patient is maintained on Levaquin and will continue. Patient also continues on IV dexamethasone along with half-normal saline and will continue. Patient is anticoagulated with Eliquis and will continue. Patient is tolerating tube feeds well and no reported bowel movements and patient is receiving a laxative today. Patient is afebrile. Review of systems: Unable to obtain as patient is lethargic and maintained on Precedex Active Medications Albuterol Sulfate (Albuterol Hfa Inhaler) 2 puff INHALATION RT-QID PRN PRN Reason: Shortness Of Breath Or Wheezing Last Admin: 11/15/21 07:31 Dose: 2 puff Apixaban (Apixaban 5 Mg Tab) 5 mg PO BID [facility]; Protocol Last Admin: 11/14/21 21:03 Dose: 5 mg Aspirin (Aspirin 81 Mg) 81 mg PO DAILY@0900 [facility] Last Admin: 11/14/21 08:06 Dose: 81 mg Atorvastatin Calcium (Atorvastatin 40 Mg Tab) 40 mg PO HS@2100 [facility] Last Admin: 11/14/21 21:03 Dose: 40 mg Clozapine (Clozapine 100 Mg Tab) 200 mg PO TID@0900,1300,2100 [facility] Stop: 11/15/21 23:00 Last Admin: 11/14/21 21:03 Dose: 200 mg Dexamethasone Sodium Phosphate (Dexamethasone Sod Phosphate 10 Mg/Ml 1 Ml Vial) 6 mg IVP DAILY [facility] Last Admin: 11/14/21 08:06 Dose: 6 mg Dexmedetomidine HCl 400 mcg/ (IV Solution) 100 mls @ 4.763 mls/hr IV .Q21H [facility]; Protocol Last Titration: 11/15/21 06:44 Dose: 1.2 mcg/kg/hr, 28.576 mls/hr Levofloxacin 750 mg/ IV (Solution) 150 mls @ 100 mls/hr IVPB Q24H [facility]; Protocol Last Admin: 11/14/21 21:16 Dose: 100 mls/hr Sodium Chloride (Saline 0.45%) 1,000 mls @ 75 mls/hr IV .[id number] [facility] Last Admin: 11/14/21 16:50 Dose: 75 mls/hr Insulin Aspart (Insulin Aspart (Novolog) 100 Unit/Ml Vial) 0 unit SQ Q6HR [facility]; Protocol Last Admin: 11/15/21 06:28 Dose: 1 unit Insulin Detemir (Insulin Detemir (Levemir) 100 Unit/Ml Syr) 20 unit SQ DAILY@0700 [facility] Last Admin: 11/15/21 06:30 Dose: 20 unit Lamotrigine (Lamotrigine 25 Mg Tab) 25 mg PO BID@0900,2100 [facility] Last Admin: 11/14/21 21:03 Dose: 25 mg Levothyroxine Sodium (Levothyroxine 100 Mcg Tab) 100 mcg PO DAILY@0600 [facility] Last Admin: 11/15/21 05:14 Dose: 100 mcg Miscellaneous Information (Pneumonia Protocol Utilized 1 Each Misc) 1 each PO ONCE PRN PRN Reason: Per Protocol Miscellaneous Information (Potassium Replacement Protocol 1 Each Misc) 1 each MISCELLANE DAILY PRN; Protocol PRN Reason: Per Protocol Naloxone HCl (Naloxone 0.4 Mg/Ml 1 Ml Vial) 0.2 mg IV Q2M PRN PRN Reason: Opioid Reversal Pantoprazole Sodium (Pantoprazole 40 Mg/10 Ml Vial) 40 mg IV DAILY [facility] Last Admin: 11/14/21 08:06 Dose: 40 mg Thiamine HCl (Thiamine 100 Mg Tab) 100 mg PO DAILY [facility] Last Admin: 11/14/21 08:06 Dose: 100 mg Physical exam: GENERAL EXAM: 50-year-old female patient, currently on BiPAP 12/5 and 55% FiO2 and PEEP is 5 EYES: Normal reaction of pupils, equal size. NOSE: Clear with pink turbinates. THROAT: No erythema or exudates. NECK: No masses, no JVD. Subcutaneous emphysema noted of the neck and chest CHEST: No chest wall deformity. LUNGS: Diminished breath sounds bilaterally with some coarse rhonchi and crackles at the bases CVS: S1 and S2 muffled ABDOMEN: No hepatosplenomegaly, obese, normal bowel sounds, no guarding or rigidity. SKIN: No rashes Assessment: Encephalopathy, multifactorial: Predominately hypoxic encephalopathy due to COVID-19 pneumonia. Also component of metabolic encephalopathy (hypernatremia, JAYLA) History of seizure Acute hypoxemic respiratory failure secondary to pneumonia Acute hypernatremia JAYLA Recent COVID-19 infection Hypertension History of diabetes History of hypothyroidism Schizoaffective disorder Primary history of tobacco use History of heavy alcohol use History of marijuana use GI prophylaxis DVT prophylaxis Full code Plan: Recommend continue with BiPAP and close monitoring with pulmonary clinical research manager following. Patient with subcutaneous emphysema and noted pneumoperitoneum on x- ray with some improvement and recommend repeat x-ray in the a.m. Patient also continues on Precedex and will continue and nursing staff working on weaning as tolerated, patient somewhat more alert today although not following commands Patient is continued on D5 and water and sodium improving Blood sugars elevated recommending sliding scale and Accu-Cheks before meals and at bedtime into a.m. and continue long-acting insulin Recommend continue tube feeds, suppository today as patient has had no reported bowel movements Patient is continued on IV dexamethasone along with IV Levaquin and will continue. Multiple medical consultations following and will continue to monitor closely. Recommend repeat labs in a.m. Due to multiple convex medical issues, prognosis is extremely guarded. The impression and plan of care has been dictated by Sumi Baldwin, Nurse Practitioner as directed. Dr. Pan MD I have performed a history and examination and MDM of this patient, discussed the same with the dictator, and agree with the dictator's assessment and plan as written ,documented as a scribe. Based on total visit time, I have performed more than 50% of the visit. Objective - Vital Signs Vital signs: Vital Signs Temp 98 F 11/14/21 08:00 Pulse 93 11/14/21 10:00 Resp 17 11/14/21 10:00 BP 112/64 11/14/21 10:00 Pulse Ox 93 L 11/14/21 10:00 FiO2 55 11/14/21 08:12 Intake & Output 11/13/21 11/14/21 11/14/21 18:59 06:59 18:59 Intake Total 2470.979 3150.000 1100 Output Total 1315 2005 685 Balance 0509.644 2216.000 415 Weight 92 kg 93.2 kg Intake: IV 475 1200 350 D5W 250 275 50 Levofloxacin 750Mg-D5w 100 Pmx 750 mg In Dextrose/ Water 1 150ml.bag @ 100 mls/hr IVPB Q24H [facility] Rx#: [id number] Sodium Chloride 0.45% 1, 225 825 300 000 ml @ 75 mls/hr IV . [id number] [facility] Rx#:[id number] Intake, IV Titration 285.979 300.000 100 Amount Dexmedetomidine/0.9% NaCl 260.979 300.000 100 (Pmx) 400 mcg In Empty Bag 1 bag @ 0.2 MCG/KG/HR 4.763 mls/hr IV .Q21H [facility] Rx#:[id number] Dextrose 5% in Water 1, 25 000 ml @ 25 mls/hr IV . Q24H [facility] Rx#:[id number] Tube Feeding 550 550 200 Other 1160 1100 450 Output: Urine 1315 2005 685 Other: Voiding Method Indwelling Catheter Indwelling Catheter Indwelling Catheter - Labs CBC & Chem 7: 11/15/21 07:12 11/14/21 07:07 Labs: Abnormal Lab Results - Last 24 Hours (Table) 11/13/21 11/13/21 11/13/21 Range/Units 11:52 15:20 17:10 WBC (3.8-10.6) k/uL Neutrophils # (Manual) (1.3-7.7) k/uL Metamyelocytes # (Man) (0) k/uL Myelocytes # (Manual) (0) k/uL D-Dimer (<0.60) mg/L FEU Chloride (98-107) mmol/L BUN (7-17) mg/dL Glucose (74-99) mg/dL POC Glucose (mg/dL) 293 H 219 H 215 H (70-110) mg/dL C-Reactive Protein (<1.0) mg/dL 11/13/21 11/14/21 11/14/21 Range/Units 23:25 04:57 06:44 WBC (3.8-10.6) k/uL Neutrophils # (Manual) (1.3-7.7) k/uL Metamyelocytes # (Man) (0) k/uL Myelocytes # (Manual) (0) k/uL D-Dimer (<0.60) mg/L FEU Chloride (98-107) mmol/L BUN (7-17) mg/dL Glucose (74-99) mg/dL POC Glucose (mg/dL) 151 H 178 H 174 H (70-110) mg/dL C-Reactive Protein (<1.0) mg/dL 11/14/21 11/14/21 11/14/21 Range/Units 07:07 07:07 08:45 WBC 11.0 H (3.8-10.6) k/uL Neutrophils # (Manual) 8.60 H (1.3-7.7) k/uL Metamyelocytes # (Man) 0.11 H (0) k/uL Myelocytes # (Manual) 0.33 H (0) k/uL D-Dimer 2.56 H (<0.60) mg/L FEU Chloride 108 H (98-107) mmol/L BUN 38 H (7-17) mg/dL Glucose 185 H (74-99) mg/dL POC Glucose (mg/dL) (70-110) mg/dL C-Reactive Protein (<1.0) mg/dL 11/14/21 Range/Units 08:45 WBC (3.8-10.6) k/uL Neutrophils # (Manual) (1.3-7.7) k/uL Metamyelocytes # (Man) (0) k/uL Myelocytes # (Manual) (0) k/uL D-Dimer (<0.60) mg/L FEU Chloride (98-107) mmol/L BUN (7-17) mg/dL Glucose (74-99) mg/dL POC Glucose (mg/dL) (70-110) mg/dL C-Reactive Protein 3.6 H (<1.0) mg/dL Microbiology - Last 24 Hours (Table) 11/08/21 18:47 Blood Culture - Preliminary Blood No Growth after 120 hours 11/09/21 12:25 Blood Culture - Preliminary Blood No Growth after 96 hours
--- NOTE | 2021-11-15 08:46 | P.PN ---
Subjective Progress Note Date: 11/15/21 50-year-old female, who is brought in by the [place] emergency services. She apparently resides at [facility] in that area. She apparently has a history of schizophrenia, as well as a history of recent infection with coronavirus. The patient was brought in because of mental status changes, and also low saturations. Apparently the patient was evaluated there and thought to have pneumonia. The patient was treated with Levaquin here. Currently, she seen in the emergency room, room 11. She is on 15 L high flow oxygen. She's getting saline at 75 mL an hour. I did have the opportunity to speak to the patient's , name Art. He was able to provide some history. [facility], but is unable to prepare food for herself. Her mental status varies hour to hour and day today according to him. The patient herself can give me no history. She sees been here in the emergency department, she's been moaning and groaning. Her ch est x-ray shows bilateral patchy infiltrates. A blood gas was done and showed a pO2 of 89, pCO2 35, and pH is 7.332. She apparently has a history of diabetes, hypertension, hyperlipidemia, and hypothyroidism. White count 11.5, hemoglobin 12.6, hematocrit 41.3, with a normal platelet count. Sodium 157, potassium 4.3, chlorides 124, CO2 19, anion gap 14, BUN 50, creatinine 2.04. Her lactic acid was 1.2. Pro-calcitonin level is pending. Urine is yellow and cloudy. There is 1+ protein. Trace blood. Small positive leukocyte esterase, 7 RBCs, 9 WBCs, and many bacteria. Chest x-ray shows patchy bilateral infiltrates. Progress note dated 11/08/2021. 50-year-old female seen in the emergency department yesterday. She was brought in from one of the local nursing homes, with complaints of mental status changes, low saturations, and possibly pneumonia. The patient was initially seen in the ER, and then transferred to the intensive care, where she was seen yesterday and today, in room 254. She's currently on BiPAP. BiPAP settings are 12/5 and 65%. He is currently receiving Levaquin. Microbiologic cultures are negative. She did test positive for coronavirus infection. She's getting D5W 100 mL an hour Precedex at 0.5 mcg/kg per hour. White count was 12.7, hemoglobin 11.4, hematocrit 37.2, and platelet count 270,000. Sodium 153, potassium 4.5, chlorides 119, CO2 27, with a BUN and creatinine of 60, and 1.55. Chest x-ray continues to show bilateral airspace disease. Progress note dated 11/09/2021. 50-year-old female seen in consultation 2 days ago. She was brought in from one of the local nursing homes with complaints of mental status changes, possible pneumonia, and low saturations. The patient was seen initially in the emergency department, and was admitted to the intensive care unit. She remains on BiPAP, with settings of 12/5 and 80%. She's getting dexmedetomidine at 0.5 mcg/kg/h. She's getting D5W at 100 mL an hour. Today, we will attempt to get her off of dexmedetomidine, and replace it with Haldol IM. According to the nurse, she had a very uneventful night. White count 14.6, hemoglobin 11.4, hematocrit 38.2, and platelet count 315,000. Sodium 149, potassium 4.2, chlorides 117, CO2 24, BUN 44, and creatinine 1.27. Calcium is normal. Microbiologic studies are thus far negative. No chest x-ray today. CAT scan of the brain did not show anything acute. The patient is seen today 11/10/2021 in follow-up in the intensive care unit. S he remains on BiPAP 12/5 and 80% FiO2. She has required dexmedetomidine at 0.8 mcg/kg/h. Currently she is resting comfortably in bed. Chest x-ray reveals bilateral airspace disease. No evidence of pneumothorax or pleural effusions. Nasogastric tube remains in place. CT scan of the brain reveals an atrophic and chronic small vessel ischemic changes without acute intracranial process. Blood cultures revealed no growth. White count 15.2. Hemoglobin 11.2. Platelets 298. Sodium 150. Potassium 4.0. Chloride 118. BUN 36. Creatinine 1.13. Glucose 172. She remains on Decadron, Levaquin. Anticoagulated with Eliquis. Progress note dated 11/12/2021. The patient is again seen today in room 254. She remains on BiPAP, with settings of 12/5 and 55%. She is on saline at 10 mL an hour, and Precedex at 0.9 mcg/kg per hour. Today, we will discontinue the saline. We'll put her on dextrose at 100 mL an hour. She is receiving Jevity at 50 mL an hour, which is goal. Her oxygenation has improved. Just a couple days ago, she was on 100%. Sodium 152, potassium 3.9, chlorides 119, CO2 27, BUN 34, creatinine 1.07. Chest x-ray shows persistent infiltrate throughout the right midlung and right lower lobe lung zones, as well as in the left lower lobe. 11/13/2021, the patient is being seen for follow-up in the intensive care unit. The patient is a case of severe coronary related pneumonia. [facility]. She presented to us with hypoxic respiratory failure and currently she is on a BiPAP. This morning, the patient is on a BiPAP pressure of 12/5 cm of water with an FiO2 of 55%. She had a follow-up chest x-ray that showed evidence of pneumomediastinum extending to her neck area. No evidence of any pneumothorax. There is diffuse bilateral airspace disease consistent with colloid 19 related pneumonia. The patient is tolerating the BiPAP without any m ajor difficulties pH is able to generate a tidal volume of 600. Her minute ventilation is quite high at this point in time. Her respiratory rate in the low 30s. She is on Precedex which is running at 1.2 mcg/kg per minute. She is a bit confused. She is extremely weak. She has a weak cough. Unable to raise her arms or legs. She follows simple commands intermittently. She has been on Decadron 6 mg IV every 24 hours. Along with BiPAP therapy, the patient has an NG tube in place and she is receiving enteral feeding for nutritional support and the patient is currently on Jevity 1.2 at the rate of 50 mL an hour. In terms of her blood work, the patient's sodium is 145 and the patient received D5 water at the rate of 30 mL an hour. Sodium level is normalized and is down to 145. BUN is at 40 with a creatinine of 1.08. Glucose is at 211. Calcium level is at 9.3. The patient otherwise is on Levemir insulin 20 units daily along with NovoLog sliding scale coverage. She has been covered empirically with IV antibiotics and the patient is receiving levofloxacin 750 mg every 24 hours. Her pro-calcitonin level at time of admission was 1.1. Inflammatory markers are not available. 11/14/2021, the patient is very much encephalopathic and lethargic. She is apparent on Precedex. While off the medication, the patient gets agitated and thrashes around and she becomes asynchronous with a BiPAP machine. Otherwise, while on Precedex, the patient is calm and comfortable and synchronous with the BiPAP machine. She is extremely lethargic, extremely weak, quite debilitated at this point in time. She remains BiPAP dependent and the current BiPAP settings of 12/5 with an FiO2 of 55%. The chest x-ray from today shows stable findings. No significant interval change. No worsening of the pneumomediastinum. NG tube is in a good location. The patient is generating tidal volumes of above 500 and her current respiratory rate is around 25 with a minute ventilation of 12.7 L per minute. She did have a bout of aspiration yesterday. This did not affect her oxygenation. The white cell causes 11 with a hemoglobin of 11.5. BUN is at 38 and a creatinine of 1.04 and his sodium level of 142. The patient remains on Decadron 6 mg IV every 24 hours. The patient remains on Levemir insulin 20 units subcu daily along with Novolin 70/30 coverage. The patient on half-normal saline at the rate of 75 mL's an hour. Electrolytes are all stable for now. No other significant events overnight. No seizure activity. The patient remains on Jevity 1.5 at the rate of 50 an hour. She is tolerating her tube feeds well. No abdominal distention. No bowel activity and the patient is going to receive a laxative suppository today. She is afebrile. Awaiting inflammatory markers. We will also repeat full calcitonin level. We also repeat d-dimer's. 11/15/2021, seeing the patient for a follow-up. Neurologically still the same. The patient is not communicating. She is profoundly weak. We'll try to wean off the Precedex yesterday and the patient became quite restless and agitated. Based on that, the patient was kept on Precedex which is currently running at 1.2 mcg/kg per minute. This case the patient quite comfortable and synchronous with the BiPAP machine. The patient remains on a BiPAP at a pressure of 12/5 cm of water with an FiO2 of 55%. And the patient's pulse ox has been fluctuating. Earlier this point she was at 97% and currently she is somewhat between 89-90%. Based on that, blood gases will be obtained to confirm the patient's oxygenation. The chest x-ray findings are essentially unchanged. The patient has some limited subcutaneous emphysema in the neck area. There is diffuse bilateral pulmonary infiltrates consistent with community related pneumonia. The patient's d-dimer is at 2.56. The patient also has a LDH level of 595 and a CRP level is at 3.6. The pro calcitonin level is at 0.1 and the patient remains on Decadron. The patient is also on anticoagulation with Eliquis. The patient's receiving enteral feeding for nutritional support. The patient on Jevity which is running at 50 mL an hour. She did have a Dulcolax suppository yesterday and she hasn't had any massive bowel movement.. Urine output is adequate. The rest of the electrolytes showing a sodium of 142, potassium of 4.3, BUN is at 38 and a creatinine is 1.0. The patient's echoes of 13 with a hemoglobin of 12.5. Most recent blood sugar is at 153. Objective - Vital Signs Vital signs: Vital Signs Temp 97.9 F 11/15/21 04:00 Pulse 85 11/15/21 06:00 Resp 19 11/15/21 06:00 BP 123/73 11/15/21 06:00 Pulse Ox 88 L 11/15/21 06:00 FiO2 55 11/15/21 07:31 Intake & Output 11/14/21 11/15/21 11/15/21 18:59 06:59 18:59 Intake Total 3016.67 2060.721 Output Total 2435 2805 Balance 581.67 -744.279 Weight 86.4 kg Intake: IV 950 975 D5W 50 Sodium Chloride 0.45% 1, 900 975 000 ml @ 75 mls/hr IV . [id number] [facility] Rx#:[id number] Intake, IV Titration 216.67 335.721 Amount Dexmedetomidine/0.9% NaCl 216.67 235.721 (Pmx) 400 mcg In Empty Bag 1 bag @ 0.2 MCG/KG/HR 4.763 mls/hr IV .Q21H [facility] Rx#:[id number] Levofloxacin 750Mg-D5w 100 Pmx 750 mg In Dextrose/ Water 1 150ml.bag @ 100 mls/hr IVPB Q24H [facility] Rx#: [id number] Tube Feeding 600 650 Other 1250 100 Output: Urine 2435 2805 Other: Voiding Method Indwelling Catheter Indwelling Catheter # Bowel Movements 1 - Exam Currently on BiPAP 12/5 Fio2 55%, sedated, in no acute distress, on Precedex 1.0, confused, very lethargic and weak and he is to be quite debilitated. The patient is on a full face mask with a BiPAP and she is able to tolerate. She has an NG tube in place. Neurologic exam is essentially unchanged compared to yesterday and the patient remains on Precedex. HEENT examination is grossly unremarkable. Neck supple. Full range of motion. No adenopathy thyromegaly or neck vein distention. Cardiovascular examination reveals regular rhythm rate. S1-S2 normal. No S3 or S4. No discernible murmur noted. Heart sounds are distant. Lungs reveal scattered bilateral rhonchi and crackles. Breath sounds equal. No wheezes. Abdomen soft, with bowel sounds. No tenderness.. Extremities are intact. No cyanosis clubbing or edema. Skin is without rash or lesion. Neurologic examination is difficult to assess. The patient has motor weakness in all 4 extremities. She is confused and unable to follow simple commands. Patient remains encephalopathic. She is not following any commands even while off sedation. Neurologic exam is nonfocal. Pupils are equal and reactive to light. No focal neurological deficits. - Labs CBC & Chem 7: 11/15/21 07:12 11/14/21 07:07 Labs: Abnormal Lab Results - Last 24 Hours (Table) 11/14/21 11/14/21 11/14/21 Range/Units 07:07 08:45 08:45 WBC (3.8-10.6) k/uL Neutrophils # (Manual) 8.60 H (1.3-7.7) k/uL Metamyelocytes # (Man) 0.11 H (0) k/uL Myelocytes # (Manual) 0.33 H (0) k/uL D-Dimer 2.56 H (<0.60) mg/L FEU POC Glucose (mg/dL) (70-110) mg/dL C-Reactive Protein 3.6 H (<1.0) mg/dL Procalcitonin (0.02-0.09) ng/mL 11/14/21 11/14/21 11/14/21 Range/Units 08:45 11:38 18:01 WBC (3.8-10.6) k/uL Neutrophils # (Manual) (1.3-7.7) k/uL Metamyelocytes # (Man) (0) k/uL Myelocytes # (Manual) (0) k/uL D-Dimer (<0.60) mg/L FEU POC Glucose (mg/dL) 264 H 251 H (70-110) mg/dL C-Reactive Protein (<1.0) mg/dL Procalcitonin 0.10 H (0.02-0.09) ng/mL 11/14/21 11/15/21 11/15/21 Range/Units 23:35 06:24 07:12 WBC 13.0 H (3.8-10.6) k/uL Neutrophils # (Manual) (1.3-7.7) k/uL Metamyelocytes # (Man) (0) k/uL Myelocytes # (Manual) (0) k/uL D-Dimer (<0.60) mg/L FEU POC Glucose (mg/dL) 214 H 153 H (70-110) mg/dL C-Reactive Protein (<1.0) mg/dL Procalcitonin (0.02-0.09) ng/mL Microbiology - Last 24 Hours (Table) 11/08/21 18:47 Blood Culture - Final Blood No Growth after 144 hours 11/09/21 12:25 Blood Culture - Preliminary Blood No Growth after 120 hours Assessment and Plan Plan: Acute hypoxemic respiratory failure secondary to bilateral pneumonia.BIPAP 12/5, Fio2 55%, a complication of COVID 19 related pneumonia. The patient has developed evidence of pneumomediastinum extending to her neck. Oxygenation remains unchanged and the patient is still BiPAP dependent. Inflammatory markers are low and the patient remains on Decadron. We'll check a blood gas on we'll assess the patient's ability to come off the BiPAP in consultation for a high flow/Airvo system. Unfortunately, the patient remains quite encephalopathic still. Remains on Precedex at 1 mcg/kg per minute. He remains on enteral feeding for nutritional support. History of recent coronavirus infection, 10/28/2021, [facility] Acute mental status changes, presumably secondary to infection. The patient is currently on Precedex for sedation and synchrony with the BiPAP. The patient's Precedex is running at 1.0 mcg/kg per minute. Dysphagia, on EN for nutritional support and the patient is receiving Jevity at the rate of 50 mL an hour Hypernatremia, recovered with D5 water supplementation History of hypertension. History of hyperlipidemia. History of diabetes mellitus. History of hypothyroidism. History of schizophrenia. Prior history of tobacco use. History of heavy alcohol use. History of marijuana use. Plan Overall condition unchanged Continue BiPAP for respiratory support Check a blood gases and assess the patient's ability to change or switched to an Airvo system Inflammatory markers were noted and the numbers are low Chest x-ray findings are stable for now Aspiration precautions Keep the NG tube in place for feeding Give the patient a laxative suppository to facilitate a bowel movement activity Eliquis 5 mg twice a day Wean off the Precedex and monitor the mental status Condition is stable compared to yesterday. Probably neurologically slightly more awake and she's not following commands. There is obvious signs of: COVID 19 related encephalopathy in addition to underlying schizophrenia. Possibly component of delirium in addition. High likelihood for future respiratory failure, intubation mechanical ventilation. Her CODE STATUS is full. Condition is critical. We'll continue to follow and make further recommendations based on her progress. This is a critically care evaluation was done and more than 30 minutes.
[2021-11-15 09:11] LABS: ABG Base Excess 8.3 mmol/L; ABG HCO3 32 mmol/L (21-25); ABG Oxygen Saturation 80.7 % (94-97); ABG PCO2 42 mmHg (35-45); ABG PH 7.49 (7.35-7.45); ABG TCO2 33 mmol/L (19-24); Allen Test Performed? Yes
[2021-11-15] MEDS: PANTOPRAZOLE 40 MG/10 ML VIAL IV SCH (09:21)
[2021-11-15] MEDS: DEXAMETHASONE SOD PHOSPHATE 10 MG/ML 1 ML VIAL IVP SCH (09:22)
[2021-11-15] MEDS: THIAMINE 100 MG TAB PO SCH (09:23)
[2021-11-15] MEDS: ASPIRIN 81 MG PO SCH (09:23)
[2021-11-15] MEDS: lamoTRIgine 25 MG TAB PO SCH ×2 (09:23→21:18)
[2021-11-15] MEDS: cloZAPine 100 MG TAB PO SCH ×3 (09:23→21:18)
[2021-11-15] MEDS: APIXABAN 5 MG TAB PO SCH ×2 (09:23→21:17)
[2021-11-15 09:24] LABS: ABG PO2 43 mmHg (83-108)
--- NOTE | 2021-11-15 11:12 | P.PN ---
Subjective Progress Note Date: 11/14/21 Patient was seen for a follow-up. Patient initially seen by Dr. Breezy Orozco. Please refer to his note for details. Patient is a 50-year-old female who has altered mental status due to hypoxic encephalopathy. Patient is Covid and is on BiPAP. Patient had 2 CT head scan in the past which were negative. Patient continues to be encephalopathic. I spoke to patient's nurse, who mentioned that patient's family has mentioned that he shouldn't has declined in the last 1 year. She sometimes would talk ab out something, that has nothing to do with the conversation going on. She had periods of incontinence of urine as well. Patient's has to tell her to do personal hygiene, as she has been declining for last 1 year. Per nurse report, she has schizoaffective bipolar disorder. Also has diabetes hypertension and hypothyroidism. At present she is not following commands. Still on BiPAP. Per nursing report, earlier this year, in June 10 admission, she was walking and talking. Objective - Vital Signs Vital signs: Vital Signs Temp 98.3 F 11/15/21 08:00 Pulse 93 11/15/21 10:00 Resp 18 11/15/21 10:00 BP 96/57 11/15/21 10:00 Pulse Ox 94 L 11/15/21 10:00 FiO2 80 11/15/21 10:53 Intake & Output 11/14/21 11/15/21 11/15/21 18:59 06:59 18:59 Intake Total 3016.67 2060.721 1000 Output Total 2435 2805 625 Balance 581.67 -744.279 375 Weight 86.4 kg Intake: IV 950 975 300 D5W 50 Sodium Chloride 0.45% 1, 900 975 300 000 ml @ 75 mls/hr IV . [id number] [facility] Rx#:[id number] Intake, IV Titration 216.67 335.721 Amount Dexmedetomidine/0.9% NaCl 216.67 235.721 (Pmx) 400 mcg In Empty Bag 1 bag @ 0.2 MCG/KG/HR 4.763 mls/hr IV .Q21H [facility] Rx#:[id number] Levofloxacin 750Mg-D5w 100 Pmx 750 mg In Dextrose/ Water 1 150ml.bag @ 100 mls/hr IVPB Q24H [facility] Rx#: [id number] Tube Feeding 600 650 200 Other 1250 100 500 Output: Urine 2435 2805 625 Other: Voiding Method Indwelling Catheter Indwelling Catheter Indwelling Catheter # Bowel Movements 1 - Exam Patient is severely encephalopathic. She is on BiPAP. She appears to have labored respiration. Her pupils are equal, round and reacting. Visual welch could not be tested. Face could not be tested. Tongue and lower cranial nerves cannot be tested. 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 Patient's forearms are antigravity (bent at the elbow) but then she slowly brings it down. She would not hold her arm up at the shoulder joint. Patient would not wiggle her toes. She however feels equally to painful stimuli in all 4 extremities with facial grimacing and minimal movement. Deep tendon reflexes are 2 all over at the biceps, brachioradialis, knees and ankles and plantars are downgoing. No clonus. - Labs CBC & Chem 7: 11/15/21 07:12 11/14/21 07:07 Labs: Abnormal Lab Results - Last 24 Hours (Table) 11/14/21 11/14/21 11/14/21 Range/Units 08:45 11:38 18:01 WBC (3.8-10.6) k/uL ABG pH (7.35-7.45) ABG pO2 (83-108) mmHg ABG HCO3 (21-25) mmol/L ABG Total CO2 (19-24) mmol/L ABG O2 Saturation (94-97) % POC Glucose (mg/dL) 264 H 251 H (70-110) mg/dL Procalcitonin 0.10 H (0.02-0.09) ng/mL 11/14/21 11/15/21 11/15/21 Range/Units 23:35 06:24 07:12 WBC 13.0 H (3.8-10.6) k/uL ABG pH (7.35-7.45) ABG pO2 (83-108) mmHg ABG HCO3 (21-25) mmol/L ABG Total CO2 (19-24) mmol/L ABG O2 Saturation (94-97) % POC Glucose (mg/dL) 214 H 153 H (70-110) mg/dL Procalcitonin (0.02-0.09) ng/mL 11/15/21 Range/Units 09:09 WBC (3.8-10.6) k/uL ABG pH 7.49 H (7.35-7.45) ABG pO2 43 L* (83-108) mmHg ABG HCO3 32 H (21-25) mmol/L ABG Total CO2 33 H (19-24) mmol/L ABG O2 Saturation 80.7 L (94-97) % POC Glucose (mg/dL) (70-110) mg/dL Procalcitonin (0.02-0.09) ng/mL Microbiology - Last 24 Hours (Table) 11/08/21 18:47 Blood Culture - Final Blood No Growth after 144 hours 11/09/21 12:25 Blood Culture - Preliminary Blood No Growth after 120 hours Assessment and Plan Assessment: Encephalopathy seems due to multifactorial: Predominately hypoxic encephalopathy due to COVID-19 pneumonia. Also component of metabolic encephalopathy (hypernatremia, JAYLA). 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 meningoencephalitis History of seizure and she had a seizure about 6-8 years ago (arnol brown) while ?reported GTC on 03/15/2021 (but her 2.5 hour EEG and routine EEG was negative for seizure or epileptiform discharges) Acute hypoxemic respiratory failure secondary due to pneumonia Acute hypernatremia--trending down JAYLA--trending down Recent [place] virus infection History of diabetes History of hyper-thousand Schizoaffective disorder Primary history of tobacco use History of heavy alcohol use History of marijuana use Plan: An EEG is pending (cannot be performed at this time since on BiPAP). Continues to have significant respiratory issues. Continue thiamine 100mg daily PO. Patient's last CT head from 11/10/2021 was reviewed, showed no acute process. With persistent encephalopathy, suggest checking MRI of the brain, EEG and perhaps lumbar puncture. Every 2 neuro checks Patient is on Eliquis, also on aspirin 81 mg and Lipitor [address] Orozco has discussed with the patient's regarding her condition via phone and notified that his suspicion of meningeal encephalitis is very low but a lumbar puncture can be helpful but he stated he does not want to pursue with lumbar puncture. Nephrology team is on board Psychiatry team is on board. We'll defer the rest of the medical management to the primary and ICU team Patient condition is critical.
[2021-11-15 11:21] LABS: Band Neutrophils % 4 %; Lymphocytes # (M) 0.78 k/uL (1.0-4.8); Metamyelocytes # (M) 0.39 k/uL (0); Metamyelocytes % 3 %; Monocytes # (M) 0.65 k/uL (0-1.0); Myelocytes # (M) 0.39 k/uL (0); Myelocytes % 3 %; Neutrophils % (M) 81 %; Nucleated Red Blood Cells 0 /100 WBC (0-0); Total Cells Counted 200
[2021-11-15 11:55] LABS: Glucose,Whole Blood 179 mg/dL (70-110)
[2021-11-15 17:15] LABS: Glucose,Whole Blood 208 mg/dL (70-110)
[2021-11-15] MEDS: LEVOFLOXACIN 750MG-D5W PMX 750 MG in DEXTROSE/WATER 1 150ML.BAG IVPB SCH (21:18)
[2021-11-15] MEDS: ATORVASTATIN 40 MG TAB PO SCH (21:18)
[2021-11-15] MEDS: SODIUM CHLORIDE 0.45% 1,000 ML IV SCH (21:19)
[2021-11-15 23:10] LABS: ABG HCO3 30 mmol/L (21-25); ABG Oxygen Saturation 83.8 % (94-97); ABG PCO2 41 mmHg (35-45); ABG PH 7.47 (7.35-7.45); ABG TCO2 31 mmol/L (19-24); Allen Test Performed? Yes
--- NOTE | 2021-11-15 23:10 | XR ---
EXAMINATION TYPE: XR chest 1V DATE OF EXAM: 11/15/2021 COMPARISON: Today HISTORY: Short of breath TECHNIQUE: FINDINGS: There is bilateral patchy airspace infiltrates. These are predominantly in the lower lobes. There is nasogastric tube. There are chest leads. There is left-sided central venous catheter with t ip in the superior vena cava. IMPRESSION: Bilateral pulmonary infiltrates in the mid and lower lung welch which are not significan tly different than exam this morning.
[2021-11-15 23:12] LABS: ABG PO2 46 mmHg (83-108)
[2021-11-15] MEDS ORDERED: propofoL 100 ML IV ONE (23:20)
[2021-11-15] MEDS: CISATRACURIUM 200 MG in SODIUM CHLORIDE 0.9% 180 ML IV SCH (23:35)
--- NOTE | 2021-11-15 23:56 | XR ---
EXAMINATION TYPE: XR chest 1V portable DATE OF EXAM: 11/15/2021 COMPARISON: Today HISTORY: Tube placement TECHNIQUE: Single view FINDINGS: There is endotracheal tube 4 cm from the funmilayo. There is left subclavian catheter with tip in the superior vena cava. There is patchy bilateral infiltrates in the mid and lower lung welch. T here is nasogastric tube in the stomach. There is pneumomediastinum with air on the right side. No pn eumothorax. IMPRESSION: Pneumomediastinum also demonstrated by previous exams. Bilateral pulmonary airspace infil trates which appear the same as exam one hour ago.
[2021-11-16 00:16] LABS: Glucose,Whole Blood 132 mg/dL (70-110)
[2021-11-16] MEDS: INSULIN ASPART (NovoLOG) 100 UNIT/ML VIAL SQ SCH ×6 (00:16→19:05)
[2021-11-16 00:28] LABS: ABG Base Excess 4.8 mmol/L; ABG HCO3 31 mmol/L (21-25); ABG Oxygen Saturation 76.2 % (94-97); ABG PCO2 58 mmHg (35-45); ABG PH 7.33 (7.35-7.45); ABG TCO2 33 mmol/L (19-24); Allen Test Performed? Yes
[2021-11-16 00:29] LABS: ABG PO2 46 mmHg (83-108)
[2021-11-16 02:33] LABS: ABG Base Excess 0.6 mmol/L; ABG HCO3 27 mmol/L (21-25); ABG Oxygen Saturation 72.5 % (94-97); ABG PCO2 58 mmHg (35-45); ABG PH 7.28 (7.35-7.45); ABG TCO2 29 mmol/L (19-24); Allen Test Performed? Yes
[2021-11-16 02:35] LABS: ABG PO2 46 mmHg (83-108)
[2021-11-16] MEDS ORDERED: NOREPINEPHRIN 4 MG-0.9% NS PMX 4 MG/250 ML ML IV ONE (02:51)
--- NOTE | 2021-11-16 04:07 | P.PN ---
Subjective Progress Note Date: 11/15/21 Encephalopathy; multifactorial Acute hypoxemic respiratory failure secondary due to pneumonia Acute hypernatremia--trending down JAYLA 50-year-old female, who is brought in by the [facility] emergency services. She apparently resides at [facility] up in that area. She apparently has a history of schizophrenia, as well as a history of recent infection with coronavirus. The patient was brought in because of mental status changes, and also low saturations. Apparently the patient was evaluated there and thought to have pneumonia. The patient was treated with Levaquin here. Currently, she seen in the emergency room, room 11. She is on 15 L high flow oxygen. She's getting saline at 75 mL an hour. I did have the opportunity to speak to the patient's , name Art. He was able to provide some history. [facility], but is unable to prepare food for herself. Her mental status varies hour to hour and day today according to him. The patient herself can give me no history. She sees been here in the emergency department, she's been moaning and groaning. Her chest x-ray shows bilateral patchy infiltrates. A blood gas was done and showed a pO2 of 89, pCO2 35, and pH is 7.332. She apparently has a history of diabetes, hypertension, hyperlipidemia, and hypothyroidism. 11/11/2021 Patient is seen and evaluated in follow-up in the intensive care unit; remains on BiPAP 12/5 and 70% FiO2 to maintain O2 saturations in the 90s. She remains on dexmedetomidine at 1 mcg/kg per hour. D5 W2 125 ML's per hour. She is being nourished with Jevity 1.5 at 40 ML's per hour with a goal of 50 ML's per hour. She remains on antibiotics in the form of Levaquin. She is anticoagulated with Eliquis. Continued on Decadron. Asked x-ray shows increasing infiltrate in the right midlung zone and right lower lobe. Also developing infiltrate in the left perihilar region. Blood cultures reveal no growth. Sodium 144. Potassium 3.8. Bicarb 29. Creatinine 1.02. Glucose 266. AST 24. ALT 18. 11/12/2021 Patient is seen and evaluated in room at bedside; remains in ICU; per nursing staff patient is slightly more awake compared to yesterday Vital signs reveal temperature of 97.7, pulse 118, respiration 35, blood pressure of 91/59 with O2 saturation 92% with an FiO2 of 55% Labs are reviewed which revealed sodium of 152, potassium 2.9, BUN/creatinine of 304/1.07 with blood glucose of 186 Neurology on board for encephalopathy; likely related to COVID-19 pneumonia with metabolic encephalopathy given hypernatremia and acute renal injury; less likely meningoencephalitis; EEG is ordered and pending; patient remains on thiamine 100 mg daily; we will continue to have neuro checks every 3 hours Nephron board for acute renal injury secondary to septic syndrome; creatinine is improved; hypernatremia is deemed secondary to loss of free water due to high blood sugars; increase water intake via PEG tube is recommended cc per hour; labs will be redrawn later in the day; further recommendations pending 11/13/2021 Patient is seen in follow-up continues to be in the ICU with multiple medical consultations following. Patient is maintained on BiPAP with pulmonary manager cash following closely. FiO2 is currently at 65% which is currently increased and PEEP remains 5. Patient also continues with albuterol treatments along with IV dexamethasone. Patient also with hypernatremia currently maintained on D5 and water with improvement in sodium and currently 145 and will continue. Blood sugars have been elevated and patient is maintained on every 6 sliding scale and long-acting and recommend continuing with Accu-Cheks before meals and at bedtime and as needed and will increase long-acting and continue to monitor closely. Chest x-ray this morning showing air in the soft tissues of the next as well as the mediastinum compatible with pneumomediastinum with bilateral infiltrates that are unchanged. Patient is afebrile currently. Patient also continues on IV Levaquin and will continue. 11/14/2021 Patient continues to be in the ICU with multiple medical consultations following including pulmonary. Patient is maintained on BiPAP and continues on Precedex with continued attempts at weaning. FiO2 is now 55% and settings of 12/5. Chest x-ray today shows interval reduction in the degree of the pneumomediastinum with bilateral patchy infiltrates that are stable. WBC is trending down and patient is maintained on Levaquin and will continue. Patient also continues on IV dexamethasone along with half-normal saline and will continue. Patient is anticoagulated with Eliquis and will continue. Patient is tolerating tube feeds well and no reported bowel movements and patient is receiving a laxative today. Patient is afebrile. 11/15/2021 Patient seen today and continues to be in critical condition in the ICU and remains Bipap dependent and also on precedex. Per nursing staff, oxygen saturations have been difficult to maintain adequately and FI02 has been increased to 80% with 12/6 settings. Chest xray shows pneumomediastinum and continued persistent patchy infiltrates that are stable. Sub-q emphysema noted on exam. Patient is afebrile and continued on tube feedings. Overall prognosis remains extremely guarded. Review of systems: Unable to obtain as patient is lethargic and maintained on Precedex Active Medications Albuterol Sulfate (Albuterol Hfa Inhaler) 2 puff INHALATION RT-QID PRN PRN Reason: Shortness Of Breath Or Wheezing Last Admin: 11/15/21 07:31 Dose: 2 puff Apixaban (Apixaban 5 Mg Tab) 5 mg PO BID [facility]; Protocol Last Admin: 11/14/21 21:03 Dose: 5 mg Aspirin (Aspirin 81 Mg) 81 mg PO DAILY@0900 [facility] Last Admin: 11/14/21 08:06 Dose: 81 mg Atorvastatin Calcium (Atorvastatin 40 Mg Tab) 40 mg PO HS@2100 [facility] Last Admin: 11/14/21 21:03 Dose: 40 mg Clozapine (Clozapine 100 Mg Tab) 200 mg PO TID@0900,1300,2100 [facility] Stop: 11/15/21 23:00 Last Admin: 11/14/21 21:03 Dose: 200 mg Dexamethasone Sodium Phosphate (Dexamethasone Sod Phosphate 10 Mg/Ml 1 Ml Vial) 6 mg IVP DAILY [facility] Last Admin: 11/14/21 08:06 Dose: 6 mg Dexmedetomidine HCl 400 mcg/ (IV Solution) 100 mls @ 4.763 mls/hr IV .Q21H [facility]; Protocol Last Titration: 11/15/21 06:44 Dose: 1.2 mcg/kg/hr, 28.576 mls/hr Levofloxacin 750 mg/ IV (Solution) 150 mls @ 100 mls/hr IVPB Q24H [facility]; Protocol Last Admin: 11/14/21 21:16 Dose: 100 mls/hr Sodium Chloride (Saline 0.45%) 1,000 mls @ 75 mls/hr IV .[id number] [facility] Last Admin: 11/14/21 16:50 Dose: 75 mls/hr Insulin Aspart (Insulin Aspart (Novolog) 100 Unit/Ml Vial) 0 unit SQ Q6HR [facility]; Protocol Last Admin: 11/15/21 06:28 Dose: 1 unit Insulin Detemir (Insulin Detemir (Levemir) 100 Unit/Ml Syr) 20 unit SQ DAILY @0700 [facility] Last Admin: 11/15/21 06:30 Dose: 20 unit Lamotrigine (Lamotrigine 25 Mg Tab) 25 mg PO BID@0900,2100 [facility] Last Admin: 11/14/21 21:03 Dose: 25 mg Levothyroxine Sodium (Levothyroxine 100 Mcg Tab) 100 mcg PO DAILY@0600 [facility] Last Admin: 11/15/21 05:14 Dose: 100 mcg Miscellaneous Information (Pneumonia Protocol Utilized 1 Each Misc) 1 each PO ONCE PRN PRN Reason: Per Protocol Miscellaneous Information (Potassium Replacement Protocol 1 Each Misc) 1 each MISCELLANE DAILY PRN; Protocol PRN Reason: Per Protocol Naloxone HCl (Naloxone 0.4 Mg/Ml 1 Ml Vial) 0.2 mg IV Q2M PRN PRN Reason: Opioid Reversal Pantoprazole Sodium (Pantoprazole 40 Mg/10 Ml Vial) 40 mg IV DAILY [facility] Last Admin: 11/14/21 08:06 Dose: 40 mg Thiamine HCl (Thiamine 100 Mg Tab) 100 mg PO DAILY [facility] Last Admin: 11/14/21 08:06 Dose: 100 mg Physical exam: GENERAL EXAM: 50-year-old female patient, currently on BiPAP 12/6 and 80% FiO2 EYES: Normal reaction of pupils, equal size. NOSE: Clear with pink turbinates. THROAT: No erythema or exudates. NECK: No masses, no JVD. Subcutaneous emphysema noted of the neck and chest CHEST: No chest wall deformity. LUNGS: Diminished breath sounds bilaterally with some coarse rhonchi and crackles at the bases CVS: S1 and S2 muffled ABDOMEN: No hepatosplenomegaly, obese, normal bowel sounds, no guarding or rigidity. SKIN: No rashes Assessment: Encephalopathy, multifactorial: Predominately hypoxic encephalopathy due to COVID-19 pneumonia. Also component of metabolic encephalopathy (hypernatremia, JAYLA) History of seizure Acute hypoxemic respiratory failure secondary to pneumonia Acute hypernatremia JAYLA Recent COVID-19 infection Hypertension History of diabetes History of hypothyroidism Schizoaffective disorder Primary history of tobacco use History of heavy alcohol use History of marijuana use GI prophylaxis DVT prophylaxis Full code Plan: Recommend continue with BiPAP and close monitoring with pulmonary manager cash following. Patient with subcutaneous emphysema and noted pneumoperitoneum on x- ray with some improvement continued stable patchy infiltrates and recommend repeat x-ray in the a.m. Patient also continues on Precedex and will continue and nursing staff working on weaning as tolerated, patient not tolerating weaning and requiring more oxygen support and BIpap being increased. Patient is continued on D5 and water and sodium improving Blood sugars elevated recommending sliding scale and Accu-Cheks before meals and at bedtime into a.m. and continue long-acting insulin Recommend continue tube feedings Patient is continued on IV dexamethasone along with IV Levaquin and will continue. Multiple medical consultations following and will continue to monitor closely. Recommend repeat labs in a.m. Due to multiple convex medical issues, overall prognosis is extremely guarded. The impression and plan of care has been dictated by Sumi Baldwin, Nurse Practitioner as directed. Dr. Pan MD I have performed a history and examination and MDM of this patient, discussed the same with the dictator, and agree with the dictator's assessment and plan as written ,documented as a scribe. Based on total visit time, I have performed more than 50% of the visit. Objective - Vital Signs Vital signs: Vital Signs Temp 97.9 F 11/15/21 04:00 Pulse 85 11/15/21 06:00 Resp 19 11/15/21 06:00 BP 123/73 11/15/21 06:00 Pulse Ox 88 L 11/15/21 06:00 FiO2 55 11/15/21 07:31 Intake & Output 11/14/21 11/15/21 11/15/21 18:59 06:59 18:59 Intake Total 3016.67 2060.721 Output Total 2435 2805 Balance 581.67 -744.279 Weight 86.4 kg Intake: IV 950 975 D5W 50 Sodium Chloride 0.45% 1, 900 975 000 ml @ 75 mls/hr IV . [id number] [facility] Rx#:[id number] Intake, IV Titration 216.67 335.721 Amount Dexmedetomidine/0.9% NaCl 216.67 235.721 (Pmx) 400 mcg In Empty Bag 1 bag @ 0.2 MCG/KG/HR 4.763 mls/hr IV .Q21H [facility] Rx#:[id number] Levofloxacin 750Mg-D5w 100 Pmx 750 mg In Dextrose/ Water 1 150ml.bag @ 100 mls/hr IVPB Q24H [facility] Rx#: [id number] Tube Feeding 600 650 Other 1250 100 Output: Urine 2435 2805 Other: Voiding Method Indwelling Catheter Indwelling Catheter # Bowel Movements 1 - Labs CBC & Chem 7: 11/15/21 07:12 11/14/21 07:07 Labs: Abnormal Lab Results - Last 24 Hours (Table) 11/14/21 11/14/21 11/14/21 Range/Units 07:07 08:45 08:45 WBC (3.8-10.6) k/uL Neutrophils # (Manual) 8.60 H (1.3-7.7) k/uL Metamyelocytes # (Man) 0.11 H (0) k/uL Myelocytes # (Manual) 0.33 H (0) k/uL D-Dimer 2.56 H (<0.60) mg/L FEU POC Glucose (mg/dL) (70-110) mg/dL C-Reactive Protein 3.6 H (<1.0) mg/dL Procalcitonin (0.02-0.09) ng/mL 11/14/21 11/14/21 11/14/21 Range/Units 08:45 11:38 18:01 WBC (3.8-10.6) k/uL Neutrophils # (Manual) (1.3-7.7) k/uL Metamyelocytes # (Man) (0) k/uL Myelocytes # (Manual) (0) k/uL D-Dimer (<0.60) mg/L FEU POC Glucose (mg/dL) 264 H 251 H (70-110) mg/dL C-Reactive Protein (<1.0) mg/dL Procalcitonin 0.10 H (0.02-0.09) ng/mL 11/14/21 11/15/21 11/15/21 Range/Units 23:35 06:24 07:12 WBC 13.0 H (3.8-10.6) k/uL Neutrophils # (Manual) (1.3-7.7) k/uL Metamyelocytes # (Man) (0) k/uL Myelocytes # (Manual) (0) k/uL D-Dimer (<0.60) mg/L FEU POC Glucose (mg/dL) 214 H 153 H (70-110) mg/dL C-Reactive Protein (<1.0) mg/dL Procalcitonin (0.02-0.09) ng/mL Microbiology - Last 24 Hours (Table) 11/08/21 18:47 Blood Culture - Final Blood No Growth after 144 hours 11/09/21 12:25 Blood Culture - Preliminary Blood No Growth after 120 hours
[2021-11-16] MEDS: NOREPINEPHRINE 8 MG in SODIUM CHLORIDE 0.9% 250 ML IV SCH ×10 (04:15→23:37)
[2021-11-16] MEDS: SODIUM CHLORIDE 0.9% 50 ML with VASOPRESSIN 20 UNIT IVPB SCH ×6 (04:15→22:39)
[2021-11-16] MEDS ORDERED: SODIUM BICARB 8.4% 50 ML SYR (1 MEQ/ML) ONE (04:22)
[2021-11-16] MEDS ORDERED: ATROPINE SULFATE 0.1 MG/ML 10ML SYRINGE ONE (04:22)
[2021-11-16] MEDS ORDERED: EPINEPHrine 10 ML SYRINGE (0.1 MG/ML) ONE (04:22)
[2021-11-16 04:36] LABS: Glucose,Whole Blood 300 mg/dL (70-110)
[2021-11-16 06:06] LABS: ABG Base Excess -4.6 mmol/L; ABG HCO3 25 mmol/L (21-25); ABG Oxygen Saturation 70.1 % (94-97); ABG TCO2 28 mmol/L (19-24); Allen Test Performed? Yes
[2021-11-16 06:08] LABS: ABG PCO2 85 mmHg (35-45); ABG PH 7.08 (7.35-7.45); ABG PO2 50 mmHg (83-108)
[2021-11-16 06:13] LABS: Glucose,Whole Blood 311 mg/dL (70-110)
[2021-11-16 06:16] LABS: HCT 41.4 % (34.0-46.0); HGB 11.7 gm/dL (11.4-16.0); Hypochromasia Marked; MCH 26.5 pg (25.0-35.0); MCHC 28.2 g/dL (31.0-37.0); Mean Platelet Volume 9.2; Platelet Count 449 k/uL (150-450); RBC 4.42 m/uL (3.80-5.40); RDW 15.5 % (11.5-15.5)
[2021-11-16] MEDS: LEVOTHYROXINE 100 MCG TAB PO SCH (06:16)
[2021-11-16 06:25] LABS: MCV 93.8 fL (80.0-100.0)
[2021-11-16 06:35] LABS: Calcium 8.8 mg/dL (8.4-10.2); Total Bilirubin 0.6 mg/dL (0.2-1.3)
--- NOTE | 2021-11-16 06:35 | XR ---
EXAM: XR Chest, 1 View CLINICAL HISTORY: ITS.REASON XR Reason: R/O pneumothorax TECHNIQUE: Frontal view of the chest. COMPARISON: XR Chest dated 11/15/2021 FINDINGS: See Impression. IMPRESSION: 1. Stable support lines and tubes. 2. Pneumomediastinum similar/mildly increased. 3. Soft tissue emphysema in the right lower neck increased since the prior. 4. No definite pneumothorax although a small right apical pneumothorax may be obscured by overlapping structures. 5. Stable bilateral patchy airspace disease greater on the right. <MYCVCSECTION> Communications: 11/16/21 07:03 Verify Receipt with Nurse Verified receipt with [facility] on 11/16 07:03 (-04:00)
[2021-11-16] MEDS ORDERED: SODIUM BICARB 8.4% 50 ML SYR (1 MEQ/ML) IV STA (06:47)
[2021-11-16 06:48] LABS: Band Neutrophils % 25 %; Lymphocytes # (M) 1.57 k/uL (1.0-4.8); Metamyelocytes # (M) 1.96 k/uL (0); Metamyelocytes % 5 %; Monocytes # (M) 1.57 k/uL (0-1.0); Neutrophils % (M) 62 %; Nucleated Red Blood Cells 4 /100 WBC (0-0); Total Cells Counted 100; WBC 39.2 k/uL (3.8-10.6)
[2021-11-16 06:49] LABS: Anisocytosis (M) Present
[2021-11-16] MEDS: SODIUM CHLORIDE 0.45% 1,000 ML IV SCH ×2 (06:55→12:25)
[2021-11-16] MEDS: INSULIN DETEMIR (LEVEMIR) 100 UNIT/ML SYR SQ SCH (06:57)
[2021-11-16] MEDS: ALBUTEROL HFA INHALER INHALATION PRN (07:10)
[2021-11-16 07:16] LABS: Albumin 2.4 g/dL (3.5-5.0); Potassium 5.1 mmol/L (3.5-5.1); Total Protein 4.8 g/dL (6.3-8.2)
[2021-11-16] MEDS: APIXABAN 5 MG TAB PO SCH ×2 (10:21→20:35)
[2021-11-16] MEDS: DEXAMETHASONE SOD PHOSPHATE 10 MG/ML 1 ML VIAL IVP SCH (10:22)
[2021-11-16] MEDS: ASPIRIN 81 MG PO SCH (10:22)
[2021-11-16] MEDS: THIAMINE 100 MG TAB PO SCH (10:22)
[2021-11-16] MEDS: PANTOPRAZOLE 40 MG/10 ML VIAL IV SCH (10:24)
[2021-11-16] MEDS: CHLORHEXIDINE GLUCONATE 15 ML CUP MUCOUS MEM SCH ×2 (10:25→20:35)
[2021-11-16] MEDS: CEFEPIME 2 GM in SODIUM CHLORIDE 0.9% 100 ML IVPB SCH ×2 (10:25→20:36)
[2021-11-16] MEDS: cloZAPine 100 MG TAB PO SCH ×3 (10:31→20:38)
[2021-11-16] MEDS: lamoTRIgine 25 MG TAB PO SCH ×2 (10:32→20:39)
[2021-11-16] MEDS ORDERED: SODIUM CHLORIDE 0.9% 1,000 ML IV ONE ×2 (11:26→11:30)
--- NOTE | 2021-11-16 11:32 | P.PN ---
Subjective Progress Note Date: 11/16/21 50-year-old female, who is brought in by the [place] emergency services. She apparently resides at [facility] in that area. She apparently has a history of schizophrenia, as well as a history of recent infection with coronavirus. The patient was brought in because of mental status changes, and also low saturations. Apparently the patient was evaluated there and thought to have pneumonia. The patient was treated with Levaquin here. Currently, she seen in the emergency room, room 11. She is on 15 L high flow oxygen. She's getting saline at 75 mL an hour. I did have the opportunity to speak to the patient's , name Art. He was able to provide some history. The patient is at the [place] [facility] as mentioned above, but is unable to prepare food for herself. Her mental status varies hour to hour and day today according to him. The patient herself can give me no history. She sees been here in the emergency department, she's been moaning and groaning. Her ch est x-ray shows bilateral patchy infiltrates. A blood gas was done and showed a pO2 of 89, pCO2 35, and pH is 7.332. She apparently has a history of diabetes, hypertension, hyperlipidemia, and hypothyroidism. White count 11.5, hemoglobin 12.6, hematocrit 41.3, with a normal platelet count. Sodium 157, potassium 4.3, chlorides 124, CO2 19, anion gap 14, BUN 50, creatinine 2.04. Her lactic acid was 1.2. Pro-calcitonin level is pending. Urine is yellow and cloudy. There is 1+ protein. Trace blood. Small positive leukocyte esterase, 7 RBCs, 9 WBCs, and many bacteria. Chest x-ray shows patchy bilateral infiltrates. Progress note dated 11/08/2021. 50-year-old female seen in the emergency department yesterday. She was brought in from one of the local nursing homes, with complaints of mental status changes, low saturations, and possibly pneumonia. The patient was initially seen in the ER, and then transferred to the intensive care, where she was seen yesterday and today, in room 254. She's currently on BiPAP. BiPAP settings are 12/5 and 65%. He is currently receiving Levaquin. Microbiologic cultures are negative. She did test positive for coronavirus infection. She's getting D5W 100 mL an hour Precedex at 0.5 mcg/kg per hour. White count was 12.7, hemoglobin 11.4, hematocrit 37.2, and platelet count 270,000. Sodium 153, potassium 4.5, chlorides 119, CO2 27, with a BUN and creatinine of 60, and 1.55. Chest x-ray continues to show bilateral airspace disease. Progress note dated 11/09/2021. 50-year-old female seen in consultation 2 days ago. She was brought in from one of the local nursing homes with complaints of mental status changes, possible pneumonia, and low saturations. The patient was seen initially in the emergency department, and was admitted to the intensive care unit. She remains on BiPAP, with settings of 12/5 and 80%. She's getting dexmedetomidine at 0.5 mcg/kg/h. She's getting D5W at 100 mL an hour. Today, we will attempt to get her off of dexmedetomidine, and replace it with Haldol IM. According to the nurse, she had a very uneventful night. White count 14.6, hemoglobin 11.4, hematocrit 38.2, and platelet count 315,000. Sodium 149, potassium 4.2, chlorides 117, CO2 24, BUN 44, and creatinine 1.27. Calcium is normal. Microbiologic studies are thus far negative. No chest x-ray today. CAT scan of the brain did not show anything acute. The patient is seen today 11/10/2021 in follow-up in the intensive care unit. S he remains on BiPAP 12/5 and 80% FiO2. She has required dexmedetomidine at 0.8 mcg/kg/h. Currently she is resting comfortably in bed. Chest x-ray reveals bilateral airspace disease. No evidence of pneumothorax or pleural effusions. Nasogastric tube remains in place. CT scan of the brain reveals an atrophic and chronic small vessel ischemic changes without acute intracranial process. Blood cultures revealed no growth. White count 15.2. Hemoglobin 11.2. Platelets 298. Sodium 150. Potassium 4.0. Chloride 118. BUN 36. Creatinine 1.13. Glucose 172. She remains on Decadron, Levaquin. Anticoagulated with Eliquis. Progress note dated 11/12/2021. The patient is again seen today in room 254. She remains on BiPAP, with settings of 12/5 and 55%. She is on saline at 10 mL an hour, and Precedex at 0.9 mcg/kg per hour. Today, we will discontinue the saline. We'll put her on dextrose at 100 mL an hour. She is receiving Jevity at 50 mL an hour, which is goal. Her oxygenation has improved. Just a couple days ago, she was on 100%. Sodium 152, potassium 3.9, chlorides 119, CO2 27, BUN 34, creatinine 1.07. Chest x-ray shows persistent infiltrate throughout the right midlung and right lower lobe lung zones, as well as in the left lower lobe. 11/13/2021, the patient is being seen for follow-up in the intensive care unit. The patient is a case of severe coronary related pneumonia. She is a [facility] resident. She presented to us with hypoxic respiratory failure and currently she is on a BiPAP. This morning, the patient is on a BiPAP pressure of 12/5 cm of water with an FiO2 of 55%. She had a follow-up chest x-ray that showed evidence of pneumomediastinum extending to her neck area. No evidence of any pneumothorax. There is diffuse bilateral airspace disease consistent with colloid 19 related pneumonia. The patient is tolerating the BiPAP without any m ajor difficulties pH is able to generate a tidal volume of 600. Her minute ventilation is quite high at this point in time. Her respiratory rate in the low 30s. She is on Precedex which is running at 1.2 mcg/kg per minute. She is a bit confused. She is extremely weak. She has a weak cough. Unable to raise her arms or legs. She follows simple commands intermittently. She has been on Decadron 6 mg IV every 24 hours. Along with BiPAP therapy, the patient has an NG tube in place and she is receiving enteral feeding for nutritional support and the patient is currently on Jevity 1.2 at the rate of 50 mL an hour. In terms of her blood work, the patient's sodium is 145 and the patient received D5 water at the rate of 30 mL an hour. Sodium level is normalized and is down to 145. BUN is at 40 with a creatinine of 1.08. Glucose is at 211. Calcium level is at 9.3. The patient otherwise is on Levemir insulin 20 units daily along with NovoLog sliding scale coverage. She has been covered empirically with IV antibiotics and the patient is receiving levofloxacin 750 mg every 24 hours. Her pro-calcitonin level at time of admission was 1.1. Inflammatory markers are not available. 11/14/2021, the patient is very much encephalopathic and lethargic. She is apparent on Precedex. While off the medication, the patient gets agitated and thrashes around and she becomes asynchronous with a BiPAP machine. Otherwise, while on Precedex, the patient is calm and comfortable and synchronous with the BiPAP machine. She is extremely lethargic, extremely weak, quite debilitated at this point in time. She remains BiPAP dependent and the current BiPAP settings of 12/5 with an FiO2 of 55%. The chest x-ray from today shows stable findings. No significant interval change. No worsening of the pneumomediastinum. NG tube is in a good location. The patient is generating tidal volumes of above 500 and her current respiratory rate is around 25 with a minute ventilation of 12.7 L per minute. She did have a bout of aspiration yesterday. This did not affect her oxygenation. The white cell causes 11 with a hemoglobin of 11.5. BUN is at 38 and a creatinine of 1.04 and his sodium level of 142. The patient remains on Decadron 6 mg IV every 24 hours. The patient remains on Levemir insulin 20 units subcu daily along with Novolin 70/30 coverage. The patient on half-normal saline at the rate of 75 mL's an hour. Electrolytes are all stable for now. No other significant events overnight. No seizure activity. The patient remains on Jevity 1.5 at the rate of 50 an hour. She is tolerating her tube feeds well. No abdominal distention. No bowel activity and the patient is going to receive a laxative suppository today. She is afebrile. Awaiting inflammatory markers. We will also repeat full calcitonin level. We also repeat d-dimer's. 11/15/2021, seeing the patient for a follow-up. Neurologically still the same. The patient is not communicating. She is profoundly weak. We'll try to wean off the Precedex yesterday and the patient became quite restless and agitated. Based on that, the patient was kept on Precedex which is currently running at 1.2 mcg/kg per minute. This case the patient quite comfortable and synchronous with the BiPAP machine. The patient remains on a BiPAP at a pressure of 12/5 cm of water with an FiO2 of 55%. And the patient's pulse ox has been fluctuating. Earlier this point she was at 97% and currently she is somewhat between 89-90%. Based on that, blood gases will be obtained to confirm the patient's oxygenation. The chest x-ray findings are essentially unchanged. The patient has some limited subcutaneous emphysema in the neck area. There is diffuse bilateral pulmonary infiltrates consistent with community related pneumonia. The patient's d-dimer is at 2.56. The patient also has a LDH level of 595 and a CRP level is at 3.6. The pro calcitonin level is at 0.1 and the patient remains on Decadron. The patient is also on anticoagulation with Eliquis. The patient's receiving enteral feeding for nutritional support. The patient on Jevity which is running at 50 mL an hour. She did have a Dulcolax suppository yesterday and she hasn't had any massive bowel movement.. Urine output is adequate. The rest of the electrolytes showing a sodium of 142, potassium of 4.3, BUN is at 38 and a creatinine is 1.0. The patient's echoes of 13 with a hemoglobin of 12.5. Most recent blood sugar is at 153. 11/16/2021, seeing the patient for a follow-up. Significant events occurred about the night. Mother the patient became progressively more hypoxic and we were at the point where we were unable to improve her oxygenation with a BiPAP machine. At that point, the round 11:30 PM yesterday, it was decided to go to intubate the patient. Intubation process was done by the BENDING MACHINE OPERATOR. Post intubation, the patient remained hypoxic and I did the necessity ventilator changes. I put that on assist-control at the rate of 32, tidal volume of 375, FiO2 of 100% with a PEEP of 16 which ultimately was brought up to 22 acute ongoing hypoxemia. However, at around 4:22 AM, the patient had a episodes of hypotension followed by cardiac pulmonary arrest. She was in a PEA rhythm. The patient received 3 rounds of CPR with epinephrine. A second arrest occurred at 4:50 AM and this lasted for around a few minutes where one round of epinephrine and CPR was given to her with recovery and return of spontaneous circulation. This morning, the patient is intubated on mechanical ventilator. She is sedated with propofol which is currently running at 20 mcg/kg. The patient is also on Nimbex at 1 mcg/kg per minute. She is adequately sedated and paralyzed. She is on normal saline running at the rate of 75 mL an hour. She is on levo fed running at 0.8 mcg/kg per minute and the patient is also on vasopressin physio logic dose of 0.03. Note that post intubation, the patient developed profound hypotension and she had to be started on pressors also. The chest x-ray from today showing diffuse bilateral pulmonary infiltrates in addition to subcutaneous emphysema in the right neck area and pneumomediastinum along the left cardiac border. ET tube is in a good location. The patient's blood gases from this morning shows a pH of 7.08 with a pCO2 of 85 and a pO2 of 50. Her current pulse ox on 78 who 82%. The patient's peak airway pressures around 36. Static pressure is 24. The patient's white cell count is at 39 with a hemoglobin of 11 and a platelet count of 449. Sodium is at 142 with a potassium level of 5.1. BUN is 45 and a creatinine of 1.08. AST is 296, ALT is 142 and alkaline phosphatase is 66. The patient remains on Levemir insulin in those was brought up to 20 units along with NovoLog 10 units 4 times a day and a sliding scale coverage. The patient remains on Decadron 6 mg IV every 24 hours. I'm going to stop the IV Levaquin and has associated this patient to broader antibiotic coverage with IV cefepime. She is sedated and paralyzed. Hemodynamically unstable. Remains on a mechanical ventilator. Obviously prognosis is poor baseline above-mentioned comorbidities. Objective - Vital Signs Vital signs: Vital Signs Temp 98.1 F 11/16/21 00:00 Pulse 100 11/16/21 07:00 Resp 32 H 11/16/21 07:00 BP 100/61 11/16/21 07:00 Pulse Ox 77 L 11/16/21 07:00 FiO2 100 11/16/21 10:44 Intake & Output 11/15/21 11/16/21 11/16/21 18:59 06:59 18:59 Intake Total 2439.279 2235.762 300.141 Output Total 1310 930 10 Balance 1426.472 8766.762 290.141 Weight 86.4 kg 86.4 kg 86.4 kg Intake: IV 825 900 75 Levofloxacin 750Mg-D5w 150 Pmx 750 mg In Dextrose/ Water 1 150ml.bag @ 100 mls/hr IVPB Q24H DENISSE Rx#: [id number] Sodium Chloride 0.45% 1, 825 750 75 000 ml @ 75 mls/hr IV . [id number] DENISSE Rx#:[id number] Intake, IV Titration 164.279 455.762 225.141 Amount Dexmedetomidine/0.9% NaCl 164.279 196.682 (Pmx) 400 mcg In Empty Bag 1 bag @ 0.2 MCG/KG/HR 4.763 mls/hr IV .Q21H DENISSE Rx#:[id number] Norepinephrine 8 mg In 258.000 225.141 Sodium Chloride 0.9% 250 ml @ 0.05 MCG/KG/MIN 8. 359 mls/hr IV .Q24H DENISSE Rx#:[id number] propofoL 1,000 mg In 1.080 Empty Bag 1 bag @ 5 MCG/ KG/MIN 2.592 mls/hr IV . Q24H DENISSE Rx#:[id number] Tube Feeding 550 350 Other 900 530 Output: Urine 1310 930 10 Other: Voiding Method Indwelling Catheter Indwelling Catheter - Exam Gen. appearance the patient is calm and comfortable sedated intubated on a mPura ventilator. The patient sedated and paralyzed for now. Orotracheal and orogastric tube are both in place. HEENT examination is grossly unremarkable. The patient has evidence of subcutaneous emphysema along the right neck area. Neck supple. Full range of motion. No adenopathy thyromegaly or neck vein distention. Subcutaneous emphysema along the right neck Cardiovascular examination reveals regular rhythm rate. S1-S2 normal. No S3 or S4. No discernible murmur noted. Heart sounds are distant. Lungs reveal scattered bilateral rhonchi and crackles. Breath sounds equal. No wheezes. The breath sounds are overall diminished Abdominal exam revealed normal bowel sounds. The abdomen was soft, non-tender, and without masses, organomegaly, or appreciable enlargement of the abdominal aorta. Extremities are intact. No cyanosis clubbing or edema. Skin is without rash or lesion. Neurologic examination is difficult to assess. As the patient is currently sedated and paralyzed. - Labs CBC & Chem 7: 11/16/21 05:51 11/16/21 05:51 Labs: Abnormal Lab Results - Last 24 Hours (Table) 11/15/21 11/15/21 11/15/21 Range/Units 07:12 11:53 17:13 WBC (3.8-10.6) k/uL MCHC (31.0-37.0) g/dL Neutrophils # (Manual) 11.00 H (1.3-7.7) k/uL Lymphocytes # (Manual) 0.78 L (1.0-4.8) k/uL Monocytes # (Manual) (0-1.0) k/uL Metamyelocytes # (Man) 0.39 H (0) k/uL Myelocytes # (Manual) 0.39 H (0) k/uL Nucleated RBCs (0-0) /100 WBC ABG pH (7.35-7.45) ABG pCO2 (35-45) mmHg ABG pO2 (83-108) mmHg ABG HCO3 (21-25) mmol/L ABG Total CO2 (19-24) mmol/L ABG O2 Saturation (94-97) % Chloride (98-107) mmol/L Carbon Dioxide (22-30) mmol/L BUN (7-17) mg/dL Creatinine (0.52-1.04) mg/dL Glucose (74-99) mg/dL POC Glucose (mg/dL) 179 H 208 H (70-110) mg/dL AST (14-36) U/L ALT (4-34) U/L Total Protein (6.3-8.2) g/dL Albumin (3.5-5.0) g/dL 11/15/21 11/16/21 11/16/21 Range/Units 23:08 00:14 00:20 WBC (3.8-10.6) k/uL MCHC (31.0-37.0) g/dL Neutrophils # (Manual) (1.3-7.7) k/uL Lymphocytes # (Manual) (1.0-4.8) k/uL Monocytes # (Manual) (0-1.0) k/uL Metamyelocytes # (Man) (0) k/uL Myelocytes # (Manual) (0) k/uL Nucleated RBCs (0-0) /100 WBC ABG pH 7.47 H 7.33 L (7.35-7.45) ABG pCO2 58 H (35-45) mmHg ABG pO2 46 L* 46 L* (83-108) mmHg ABG HCO3 30 H 31 H (21-25) mmol/L ABG Total CO2 31 H 33 H (19-24) mmol/L ABG O2 Saturation 83.8 L 76.2 L (94-97) % Chloride (98-107) mmol/L Carbon Dioxide (22-30) mmol/L BUN (7-17) mg/dL Creatinine (0.52-1.04) mg/dL Glucose (74-99) mg/dL POC Glucose (mg/dL) 132 H (70-110) mg/dL AST (14-36) U/L ALT (4-34) U/L Total Protein (6.3-8.2) g/dL Albumin (3.5-5.0) g/dL 11/16/21 11/16/21 11/16/21 Range/Units 02:31 04:35 05:43 WBC (3.8-10.6) k/uL MCHC (31.0-37.0) g/dL Neutrophils # (Manual) (1.3-7.7) k/uL Lymphocytes # (Manual) (1.0-4.8) k/uL Monocytes # (Manual) (0-1.0) k/uL Metamyelocytes # (Man) (0) k/uL Myelocytes # (Manual) (0) k/uL Nucleated RBCs (0-0) /100 WBC ABG pH 7.28 L 7.08 L* (7.35-7.45) ABG pCO2 58 H 85 H* (35-45) mmHg ABG pO2 46 L* 50 L* (83-108) mmHg ABG HCO3 27 H (21-25) mmol/L ABG Total CO2 29 H 28 H (19-24) mmol/L ABG O2 Saturation 72.5 L 70.1 L (94-97) % Chloride (98-107) mmol/L Carbon Dioxide (22-30) mmol/L BUN (7-17) mg/dL Creatinine (0.52-1.04) mg/dL Glucose (74-99) mg/dL POC Glucose (mg/dL) 300 H (70-110) mg/dL AST (14-36) U/L ALT (4-34) U/L Total Protein (6.3-8.2) g/dL Albumin (3.5-5.0) g/dL 11/16/21 11/16/21 11/16/21 Range/Units 05:51 05:51 06:12 WBC 39.2 H (3.8-10.6) k/uL MCHC 28.2 L (31.0-37.0) g/dL Neutrophils # (Manual) 34.10 H (1.3-7.7) k/uL Lymphocytes # (Manual) (1.0-4.8) k/uL Monocytes # (Manual) 1.57 H (0-1.0) k/uL Metamyelocytes # (Man) 1.96 H (0) k/uL Myelocytes # (Manual) (0) k/uL Nucleated RBCs 4 H (0-0) /100 WBC ABG pH (7.35-7.45) ABG pCO2 (35-45) mmHg ABG pO2 (83-108) mmHg ABG HCO3 (21-25) mmol/L ABG Total CO2 (19-24) mmol/L ABG O2 Saturation (94-97) % Chloride 108 H (98-107) mmol/L Carbon Dioxide 19 L (22-30) mmol/L BUN 45 H (7-17) mg/dL Creatinine 1.68 H (0.52-1.04) mg/dL Glucose 335 H (74-99) mg/dL POC Glucose (mg/dL) 311 H (70-110) mg/dL AST 296 H (14-36) U/L ALT 142 H (4-34) U/L Total Protein 4.8 L (6.3-8.2) g/dL Albumin 2.4 L (3.5-5.0) g/dL Microbiology - Last 24 Hours (Table) 11/16/21 01:00 Sputum Culture - Preliminary Sputum 11/09/21 12:25 Blood Culture - Final Blood No Growth after 144 hours Assessment and Plan Plan: Acute hypoxemic respiratory failure secondary to bilateral pneumonia. The patient was severely hypoxic. The patient was on BiPAP since the beginning of the week and the patient failed and the patient became progressively more hypoxic and the patient had to be intubated and placed on mechanical ventilator. Currently intubated on mechanical ventilator, sedated and paralyzed. She has permissive hypercapnia. She is obviously in severe pneumonia/ARDS with increased peak and static pressure and severe hypoxemia. Acute hypotension, under investigation. Currently on a combination of norepinephrine infusion and vasopressin physiologic dose. Acute cardio pulmonary arrest, probably related to severe hypoxemia/hypotension. The patient had cardiac arrest 2 requiring CPR and epinephrine and the patient had return of spontaneous circulation. Currently on pressors. History of recent coronavirus infection, 10/28/2021, [facility] Acute mental status changes, presumably secondary to infection. The patient is currently on propofol, intubated on mechanical ventilator and sedated and paralyzed. Acute kidney injury in the creatinine is up to 1.68 Metabolic acidosis a combination of anion and non-anion gap type addition to a combination of metabolic and respiratory acidosis. Respiratory acidosis due to permissive hypercapnia. Dysphagia, on EN for nutritional support History of hypertension. History of hyperlipidemia. History of diabetes mellitus, blood sugar control is been poor and the patient would have the Levemir dose adjusted and it's up to 20 units along with a 10 units 4 times a day and sliding scale coverage. History of hypothyroidism. History of schizophrenia. Prior history of tobacco use. History of heavy alcohol use. History of marijuana use. Acute leukocytosis on that investigation Plan Condition is critical Continue ventilator support and necessity ventilator changes will be done. Repeat blood gases at noontime today and we will review the blood gases and will do an incentive ventilator changes. Currently the patient and a PEEP of 22 with an FiO2 on the percent. Continue Decadron Keep the patient sedated and paralyzed Continue pressors Give the patient bolus of 2 L of IV fluids normal saline and wean off the press ors if possible Stop the Levaquin and move this patient to IV cefepime 2 g every 12 hours. Obtain blood cultures 2 Sputum cultures if possible Monitor pneumomediastinum and subcutaneous emphysema in the neck area. Enteral feeding for nutritional support Very critical condition. We'll try to change the CODE STATUS to DO NOT RESUSCITATE after having a discussion with the . Overall condition unchanged This is a critically care evaluation was done and more than 30 minutes. Time with Patient: Greater than 30
[2021-11-16 12:02] LABS: Glucose,Whole Blood 276 mg/dL (70-110)
--- NOTE | 2021-11-16 12:20 | CA ---
Transthoracic Echo Report Name: Kelly Way Age: 50 Gender: F : 1970 Exam Date: 11/16/2021 08:42 Exam Location: [facility] Ht (in): Wt (lb): Ordering Physician: Sharmin Slaughter MD Attending/Referring Phys: Educational Recruiter Jane Fajardo RDCS Procedure CPT: Indications: Cardiac Arrest Cardiac Hx: Cardiac arrest Technical Quality: Very technically difficult study Contrast 1: Lumason Total Dose (mL): 1 Contrast 2: Total Dose (mL): MEASUREMENTS (Male / Female) Normal Values FINDINGS Left Ventricle Unable to visualize heart with Lumason. Subcoastal view only. Unable to assess EF. Limited views due to poor images. Right Ventricle Right Atrium Left Atrium Mitral Valve Aortic Valve Tricuspid Valve Pulmonic Valve Pericardium Aorta CONCLUSIONS This is limited suboptimal and incomplete study difficult to assess LV function on this test Previewed by: Dr. Zaid Medina MD (Electronically Signed) Final Date: 16 November 2021 12:19
[2021-11-16 12:29] LABS: ABG Base Excess -1.4 mmol/L; ABG HCO3 28 mmol/L (21-25); ABG Oxygen Saturation 87.6 % (94-97); ABG PO2 62 mmHg (83-108); ABG TCO2 31 mmol/L (19-24); Allen Test Performed? Yes
--- NOTE | 2021-11-16 12:34 | P.PN ---
Subjective Patient is seen for follow-up for acute kidney injury Patient had been maintained on IV fluids and renal function had improved with creatinine going down from about 2.0-1.0 on 625. Serum creatinine had remained around 1.0 for the last 5 days. Early this morning patient had a cardiac arrest. She coded twice. She is currently on the vent. Patient had been hypoxic and requiring BiPAP. She is being treated for pneumonia. Patient is hypotensive requiring pressors. Urine output is low at about 10 mL an hour. FiO2 is at 100% Serum creatinine increased to 1.6 today Objective - Vital Signs Vital signs: Vital Signs Temp 96.8 F L 11/16/21 08:00 Pulse 92 11/16/21 11:30 Resp 32 H 11/16/21 11:30 BP 108/58 11/16/21 11:30 Pulse Ox 86 L 11/16/21 11:30 FiO2 100 11/16/21 10:44 Intake & Output 11/15/21 11/16/21 11/16/21 18:59 06:59 18:59 Intake Total 2439.279 2235.762 700.141 Output Total 1310 930 50 Balance 3767.158 0941.762 650.141 Weight 86.4 kg 86.4 kg 86.4 kg Intake: IV 825 900 475 Cefepime 2 gm In Sodium 100 Chloride 0.9% 100 ml @ 25 mls/hr IVPB Q12HR [facility] Rx #:[id number] Levofloxacin 750Mg-D5w 150 Pmx 750 mg In Dextrose/ Water 1 150ml.bag @ 100 mls/hr IVPB Q24H [facility] Rx#: [id number] Sodium Chloride 0.45% 1, 825 750 375 000 ml @ 75 mls/hr IV . [id number] [facility] Rx#:[id number] Intake, IV Titration 164.279 455.762 225.141 Amount Dexmedetomidine/0.9% NaCl 164.279 196.682 (Pmx) 400 mcg In Empty Bag 1 bag @ 0.2 MCG/KG/HR 4.763 mls/hr IV .Q21H [facility] Rx#:[id number] Norepinephrine 8 mg In 258.000 225.141 Sodium Chloride 0.9% 250 ml @ 0.05 MCG/KG/MIN 8. 359 mls/hr IV .Q24H [facility] Rx#:[id number] propofoL 1,000 mg In 1.080 Empty Bag 1 bag @ 5 MCG/ KG/MIN 2.592 mls/hr IV . 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 ANALYST exam could not be performed - Labs CBC & Chem 7: 11/16/21 05:51 11/16/21 05:51 Labs: Abnormal Lab Results - Last 24 Hours (Table) 11/15/21 11/15/21 11/16/21 Range/Units 17:13 23:08 00:14 WBC (3.8-10.6) k/uL MCHC (31.0-37.0) g/dL Neutrophils # (Manual) (1.3-7.7) k/uL Monocytes # (Manual) (0-1.0) k/uL Metamyelocytes # (Man) (0) k/uL Nucleated RBCs (0-0) /100 WBC ABG pH 7.47 H (7.35-7.45) ABG pCO2 (35-45) mmHg ABG pO2 46 L* (83-108) mmHg ABG HCO3 30 H (21-25) mmol/L ABG Total CO2 31 H (19-24) mmol/L ABG O2 Saturation 83.8 L (94-97) % Chloride (98-107) mmol/L Carbon Dioxide (22-30) mmol/L BUN (7-17) mg/dL Creatinine (0.52-1.04) mg/dL Glucose (74-99) mg/dL POC Glucose (mg/dL) 208 H 132 H (70-110) mg/dL AST (14-36) U/L ALT (4-34) U/L Total Protein (6.3-8.2) g/dL Albumin (3.5-5.0) g/dL 11/16/21 11/16/21 11/16/21 Range/Units 00:20 02:31 04:35 WBC (3.8-10.6) k/uL MCHC (31.0-37.0) g/dL Neutrophils # (Manual) (1.3-7.7) k/uL Monocytes # (Manual) (0-1.0) k/uL Metamyelocytes # (Man) (0) k/uL Nucleated RBCs (0-0) /100 WBC ABG pH 7.33 L 7.28 L (7.35-7.45) ABG pCO2 58 H 58 H (35-45) mmHg ABG pO2 46 L* 46 L* (83-108) mmHg ABG HCO3 31 H 27 H (21-25) mmol/L ABG Total CO2 33 H 29 H (19-24) mmol/L ABG O2 Saturation 76.2 L 72.5 L (94-97) % Chloride (98-107) mmol/L Carbon Dioxide (22-30) mmol/L BUN (7-17) mg/dL Creatinine (0.52-1.04) mg/dL Glucose (74-99) mg/dL POC Glucose (mg/dL) 300 H (70-110) mg/dL AST (14-36) U/L ALT (4-34) U/L Total Protein (6.3-8.2) g/dL Albumin (3.5-5.0) g/dL 11/16/21 11/16/21 11/16/21 Range/Units 05:43 05:51 05:51 WBC 39.2 H (3.8-10.6) k/uL MCHC 28.2 L (31.0-37.0) g/dL Neutrophils # (Manual) 34.10 H (1.3-7.7) k/uL Monocytes # (Manual) 1.57 H (0-1.0) k/uL Metamyelocytes # (Man) 1.96 H (0) k/uL Nucleated RBCs 4 H (0-0) /100 WBC ABG pH 7.08 L* (7.35-7.45) ABG pCO2 85 H* (35-45) mmHg ABG pO2 50 L* (83-108) mmHg ABG HCO3 (21-25) mmol/L ABG Total CO2 28 H (19-24) mmol/L ABG O2 Saturation 70.1 L (94-97) % Chloride 108 H (98-107) mmol/L Carbon Dioxide 19 L (22-30) mmol/L BUN 45 H (7-17) mg/dL Creatinine 1.68 H (0.52-1.04) mg/dL Glucose 335 H (74-99) mg/dL POC Glucose (mg/dL) (70-110) mg/dL AST 296 H (14-36) U/L ALT 142 H (4-34) U/L Total Protein 4.8 L (6.3-8.2) g/dL Albumin 2.4 L (3.5-5.0) g/dL 11/16/21 11/16/21 Range/Units 06:12 12:00 WBC (3.8-10.6) k/uL MCHC (31.0-37.0) g/dL Neutrophils # (Manual) (1.3-7.7) k/uL Monocytes # (Manual) (0-1.0) k/uL Metamyelocytes # (Man) (0) k/uL Nucleated RBCs (0-0) /100 WBC ABG pH (7.35-7.45) ABG pCO2 (35-45) mmHg ABG pO2 (83-108) mmHg ABG HCO3 (21-25) mmol/L ABG Total CO2 (19-24) mmol/L ABG O2 Saturation (94-97) % Chloride (98-107) mmol/L Carbon Dioxide (22-30) mmol/L BUN (7-17) mg/dL Creatinine (0.52-1.04) mg/dL Glucose (74-99) mg/dL POC Glucose (mg/dL) 311 H 276 H (70-110) mg/dL AST (14-36) U/L ALT (4-34) U/L Total Protein (6.3-8.2) g/dL Albumin (3.5-5.0) g/dL Microbiology - Last 24 Hours (Table) 11/16/21 01:00 Sputum Culture - Preliminary Sputum 11/09/21 12:25 Blood Culture - Final Blood No Growth after 144 hours Assessment and Plan Assessment: 1. Acute kidney injury secondary to sepsis, renal function had improved with creatinine going down from about 2-1.0 mg/dL. Renal function is worse again secondary to hypotension and cardiac arrest. Patient is currently oliguric. She is maintained on high-dose pressors. Electrolytes are within normal range except for acidosis. 2. Hypernatremia associated with free water deficit currently improved 3. Status post cardiac arrest 4. Acute hypoxic respiratory failure secondary to pneumonia currently on the vent and maintained on antibiotics 5. History of recent coronavirus infection Plan: Continue half-normal saline Continue with antibiotics Monitor labs closely for electrolytes and acidosis
[2021-11-16 12:40] LABS: ABG PCO2 86 mmHg (35-45); ABG PH 7.12 (7.35-7.45)
[2021-11-16 15:20] LABS: Amorphous Sediment,Urine Rare /hpf; Appearance,Urine Cloudy (Clear); Bacteria,Urine Rare /hpf; Bilirubin,Urine Negative (Negative); Blood,Urine Trace (Negative); Color,Urine Yellow; Glucose,Urine (UA) 2+ (Negative); Ketones,Urine Negative (Negative); Leukocyte Esterase,Urine Small (Negative); Mucus,Urine Occasional /hpf; Nitrite,Urine Negative (Negative); Protein,Urine 1+ (Negative); RBC,Urine 8 /hpf (0-5); Specific Gravity,Urine 1.012 (1.001-1.035); Squamous Epithelial Cell,Urine 1 /hpf (0-4); Urobilinogen,Urine <2.0 mg/dL (<2.0); WBC,Urine 12 /hpf (0-5)
--- NOTE | 2021-11-16 15:40 | P.PN ---
Subjective Progress Note Date: 11/16/21 Encephalopathy; multifactorial Acute hypoxemic respiratory failure secondary due to pneumonia Acute hypernatremia--trending down JAYLA 50-year-old female, who is brought in by the [facility] emergency services. She apparently resides at [facility] up in that area. She apparently has a history of schizophrenia, as well as a history of recent infection with coronavirus. The patient was brought in because of mental status changes, and also low saturations. Apparently the patient was evaluated there and thought to have pneumonia. The patient was treated with Levaquin here. Currently, she seen in the emergency room, room 11. She is on 15 L high flow oxygen. She's getting saline at 75 mL an hour. I did have the opportunity to speak to the patient's , name Art. He was able to provide some history. [facility] as [facility], but is unable to prepare food for herself. Her mental status varies hour to hour and day today according to him. The patient herself can give me no history. She sees been here in the emergency department, she's been moaning and groaning. Her chest x-ray shows bilateral patchy infiltrates. A blood gas was done and showed a pO2 of 89, pCO2 35, and pH is 7.332. She apparently has a history of diabetes, hypertension, hyperlipidemia, and hypothyroidism. 11/11/2021 Patient is seen and evaluated in follow-up in the intensive care unit; remains on BiPAP 12/5 and 70% FiO2 to maintain O2 saturations in the 90s. She remains on dexmedetomidine at 1 mcg/kg per hour. D5 W2 125 ML's per hour. She is being nourished with Jevity 1.5 at 40 ML's per hour with a goal of 50 ML's per hour. She remains on antibiotics in the form of Levaquin. She is anticoagulated with Eliquis. Continued on Decadron. Asked x-ray shows increasing infiltrate in the right midlung zone and right lower lobe. Also developing infiltrate in the left perihilar region. Blood cultures reveal no growth. Sodium 144. Potassium 3.8. Bicarb 29. Creatinine 1.02. Glucose 266. AST 24. ALT 18. 11/12/2021 Patient is seen and evaluated in room at bedside; remains in ICU; per nursing staff patient is slightly more awake compared to yesterday Vital signs reveal temperature of 97.7, pulse 118, respiration 35, blood pressure of 91/59 with O2 saturation 92% with an FiO2 of 55% Labs are reviewed which revealed sodium of 152, potassium 2.9, BUN/creatinine of 304/1.07 with blood glucose of 186 Neurology on board for encephalopathy; likely related to COVID-19 pneumonia with metabolic encephalopathy given hypernatremia and acute renal injury; less likely meningoencephalitis; EEG is ordered and pending; patient remains on thiamine 100 mg daily; we will continue to have neuro checks every 3 hours Nephron board for acute renal injury secondary to septic syndrome; creatinine is improved; hypernatremia is deemed secondary to loss of free water due to high blood sugars; increase water intake via PEG tube is recommended cc per hour; labs will be redrawn later in the day; further recommendations pending 11/13/2021 Patient is seen in follow-up continues to be in the ICU with multiple medical consultations following. Patient is maintained on BiPAP with pulmonary snow plow tractor operator following closely. FiO2 is currently at 65% which is currently increased and PEEP remains 5. Patient also continues with albuterol treatments along with IV dexamethasone. Patient also with hypernatremia currently maintained on D5 and water with improvement in sodium and currently 145 and will continue. Blood sugars have been elevated and patient is maintained on every 6 sliding scale and long-acting and recommend continuing with Accu-Cheks before meals and at bedtime and as needed and will increase long-acting and continue to monitor closely. Chest x-ray this morning showing air in the soft tissues of the next as well as the mediastinum compatible with pneumomediastinum with bilateral infiltrates that are unchanged. Patient is afebrile currently. Patient also continues on IV Levaquin and will continue. 11/14/2021 Patient continues to be in the ICU with multiple medical consultations following including pulmonary. Patient is maintained on BiPAP and continues on Precedex with continued attempts at weaning. FiO2 is now 55% and settings of 12/5. Chest x-ray today shows interval reduction in the degree of the pneumomediastinum with bilateral patchy infiltrates that are stable. WBC is trending down and patient is maintained on Levaquin and will continue. Patient also continues on IV dexamethasone along with half-normal saline and will continue. Patient is anticoagulated with Eliquis and will continue. Patient is tolerating tube feeds well and no reported bowel movements and patient is receiving a laxative today. Patient is afebrile. 11/15/2021 Patient seen today and continues to be in critical condition in the ICU and remains Bipap dependent and also on precedex. Per nursing staff, oxygen saturations have been difficult to maintain adequately and FI02 has been increased to 80% with 12/6 settings. Chest xray shows pneumomediastinum and continued persistent patchy infiltrates that are stable. Sub-q emphysema noted on exam. Patient is afebrile and continued on tube feedings. Overall prognosis remains extremely guarded. 11/16/2021 Patient is seen this morning and respiratory status significantly declined and patient required mechanical intubation and is currently maintained on mechanical vent with an FiO2 of 100% and PEEP is 22 and continues to have poor oxygen saturations. Lengthy discussion was had with the family and are now agreeable to no code and would like to continue current measures. Patient per nursing staff had to CODE BLUE events losing pulse early this morning and is in critical condition. Patient is maintained on Cleviprex, Levophed, propofol and requiring pressor support as well. Patient also continues with IV antibiotics. Chest x- ray today shows no definite pneumothorax although a small right apical pneumothorax may be obscured by overlying structures with stable bilateral patchy airspace disease greater on the right. WBC is 39.2, hemoglobin is 11.7, and kidney functions worsening. Blood sugars are elevated and will increase and continue with sliding scale and long-acting. Overall Prognosis is extremely poor and guarded. Review of systems: Unable to obtain as patient is now on mechanical ventilation and intubated and sedated Active Medications Apixaban (Apixaban 5 Mg Tab) 5 mg PO BID [facility]; Protocol Last Admin: 11/16/21 10:21 Dose: 5 mg Aspirin (Aspirin 81 Mg) 81 mg PO DAILY@0900 [facility] Last Admin: 11/16/21 10:22 Dose: 81 mg Atorvastatin Calcium (Atorvastatin 40 Mg Tab) 40 mg PO HS@2100 [facility] Last Admin: 11/15/21 21:18 Dose: 40 mg Chlorhexidine Gluconate (Chlorhexidine Gluconate 15 Ml Cup) 15 ml MUCOUS MEM BID [facility] Last Admin: 11/16/21 10:25 Dose: 15 ml Clozapine (Clozapine 100 Mg Tab) 200 mg PO TID@0900,1300,2100 [facility] Stop: 11/22/21 23:00 Last Admin: 11/16/21 14:00 Dose: 200 mg Dexamethasone Sodium Phosphate (Dexamethasone Sod Phosphate 10 Mg/Ml 1 Ml Vial) 6 mg IVP DAILY [facility] Last Admin: 11/16/21 10:22 Dose: 6 mg Dexmedetomidine HCl 400 mcg/ (IV Solution) 100 mls @ 4.763 mls/hr IV .Q21H [facility]; Protocol Last Titration: 11/15/21 23:30 Dose: 0 mcg/kg/hr, 0 mls/hr Sodium Chloride (Saline 0.45%) 1,000 mls @ 75 mls/hr IV .[id number] [facility] Last Admin: 11/16/21 12:25 Dose: 75 mls/hr Cisatracurium Besylate 200 mg/ (Sodium Chloride) 200 mls @ 5.184 mls/hr IV .Q24H [facility]; Protocol Last Admin: 11/15/21 23:35 Dose: 1 mcg/kg/min, 5.184 mls/hr Propofol 1,000 mg/ IV Solution 100 mls @ 2.592 mls/hr IV .Q24H [facility]; Protocol Last Titration: 11/15/21 23:45 Dose: 20 mcg/kg/min, 10.368 mls/hr Norepinephrine Bitartrate 8 mg (/ Sodium Chloride) 258 mls @ 8.359 mls/hr IV .Q24H [facility]; Protocol Last Titration: 11/16/21 14:38 Dose: 0.76 mcg/kg/min, 127.06 mls/hr Vasopressin 20 unit/ Sodium (Chloride) 51 mls @ 4.59 mls/hr IVPB .Q11H7M [facility] Last Admin: 11/16/21 11:16 Dose: 4.59 mls/hr Cefepime HCl 2 gm/ Sodium (Chloride) 100 mls @ 25 mls/hr IVPB Q12HR [facility]; Protocol Last Admin: 11/16/21 10:25 Dose: 25 mls/hr Insulin Aspart (Insulin Aspart (Novolog) 100 Unit/Ml Vial) 0 unit SQ Q6HR [facility]; Protocol Last Admin: 11/16/21 12:39 Dose: 4 unit Insulin Aspart (Insulin Aspart (Novolog) 100 Unit/Ml Vial) 10 unit SQ AC-TID [facility] Last Admin: 11/16/21 12:40 Dose: 10 unit Insulin Detemir (Insulin Detemir (Levemir) 100 Unit/Ml Syr) 20 unit SQ DAILY@0700 [facility] Last Admin: 11/16/21 06:57 Dose: 20 unit Lamotrigine (Lamotrigine 25 Mg Tab) 25 mg PO BID@0900,2100 [facility] Last Admin: 11/16/21 10:32 Dose: 25 mg Levothyroxine Sodium (Levothyroxine 100 Mcg Tab) 100 mcg PO DAILY@0600 [facility] Last Admin: 11/16/21 06:16 Dose: 100 mcg Miscellaneous Information (Pneumonia Protocol Utilized 1 Each [facility]) 1 each PO ONCE PRN PRN Reason: Per Protocol Miscellaneous Information (Potassium Replacement Protocol 1 Each [facility]) 1 each MISCELLANE DAILY PRN; Protocol PRN Reason: Per Protocol Naloxone HCl (Naloxone 0.4 Mg/Ml 1 Ml Vial) 0.2 mg IV Q2M PRN PRN Reason: Opioid Reversal Pantoprazole Sodium (Pantoprazole 40 Mg/10 Ml Vial) 40 mg IV DAILY [facility] Last Admin: 11/16/21 10:24 Dose: 40 mg Thiamine HCl (Thiamine 100 Mg Tab) 100 mg PO DAILY [facility] Last Admin: 11/16/21 10:22 Dose: 100 mg Physical exam: GENERAL EXAM: 50-year-old female patient, intubated on mechanical vent with an FiO2 of 100% and PEEP is 22 EYES: Normal reaction of pupils, equal size. NOSE: Clear with pink turbinates. THROAT: No erythema or exudates. NECK: No masses, no JVD. Subcutaneous emphysema noted of the neck and chest CHEST: No chest wall deformity. LUNGS: Diminished breath sounds bilaterally with some coarse rhonchi and crackles at the bases CVS: S1 and S2 muffled ABDOMEN: No hepatosplenomegaly, obese, normal bowel sounds, no guarding or rigidity. SKIN: No rashes Assessment: Encephalopathy, multifactorial: Predominately hypoxic encephalopathy due to COVID-19 pneumonia. Also component of metabolic encephalopathy (hypernatremia, JAYLA) History of seizure Acute hypoxemic respiratory failure secondary to pneumonia now requiring mechanical ventilation Acute hypernatremia JAYLA Recent COVID-19 infection Hypertension History of diabetes History of hypothyroidism Schizoaffective disorder Primary history of tobacco use History of heavy alcohol use History of marijuana use GI prophylaxis DVT prophylaxis No code Plan: Recommend to continue with close monitoring in the ICU and maintained on mechanical ventilation at 100% and oxygen saturations remain in the 80s. Matteo coelho is also continued on propofol and Cleviprex and also pressor support. Patient had worsening respiratory decline and CODE BLUE 2 and lengthy discussion was had with pulmonary snow plow tractor operator and family and now agreeable to no CODE STATUS although would like to continue with current measures. continue with BiPAP and close monitoring with pulmonary snow plow tractor operator following. Patient with subcutaneous emphysema and noted pneumoperitoneum on x-ray Patient until he is on sedation with propofol and cleviprex Blood sugars elevated recommending sliding scale and Accu-Cheks before meals and at bedtime into a.m. and continue long-acting insulin and have increased the dosing Recommend to continue tube feedings Patient is continued on IV cefepime Multiple medical consultations following and will continue to monitor closely. Recommend repeat labs in a.m. Due to multiple convex medical issues, overall prognosis is extremely poor and guarded. CODE STATUS was addressed and changed to no code The impression and plan of care has been dictated by Sumi Baldwin, Nurse Practitioner as directed. Dr. Pan MD I have performed a history and examination and MDM of this patient, discussed the same with the dictator, and agree with the dictator's assessment and plan as written ,documented as a scribe. Based on total visit time, I have performed more than 50% of the visit. Objective - Vital Signs Vital signs: Vital Signs Temp 98.1 F 11/16/21 00:00 Pulse 100 11/16/21 07:00 Resp 32 H 11/16/21 07:00 BP 100/61 11/16/21 07:00 Pulse Ox 77 L 11/16/21 07:00 FiO2 100 11/16/21 07:05 Intake & Output 11/15/21 11/16/21 11/16/21 18:59 06:59 18:59 Intake Total 2439.279 2235.762 75 Output Total 1310 930 10 Balance 5526.606 3183.762 65 Weight 86.4 kg 86.4 kg Intake: IV 825 900 75 Levofloxacin 750Mg-D5w 150 Pmx 750 mg In Dextrose/ Water 1 150ml.bag @ 100 mls/hr IVPB Q24H [facility] Rx#: [id number] Sodium Chloride 0.45% 1, 825 750 75 000 ml @ 75 mls/hr IV . [id number] [facility] Rx#:[id number] Intake, IV Titration 164.279 455.762 Amount Dexmedetomidine/0.9% NaCl 164.279 196.682 (Pmx) 400 mcg In Empty Bag 1 bag @ 0.2 MCG/KG/HR 4.763 mls/hr IV .Q21H [facility] Rx#:[id number] Norepinephrine 8 mg In 258.000 Sodium Chloride 0.9% 250 ml @ 0.05 MCG/KG/MIN 8. 359 mls/hr IV .Q24H [facility] Rx#:[id number] propofoL 1,000 mg In 1.080 Empty Bag 1 bag @ 5 MCG/ KG/MIN 2.592 mls/hr IV . Q24H [facility] Rx#:[id number] Tube Feeding 550 350 Other 900 530 Output: Urine 1310 930 10 Other: Voiding Method Indwelling Catheter Indwelling Catheter - Labs CBC & Chem 7: 11/16/21 05:51 11/16/21 05:51 Labs: Abnormal Lab Results - Last 24 Hours (Table) 11/15/21 11/15/21 11/15/21 Range/Units 07:12 09:09 11:53 WBC (3.8-10.6) k/uL MCHC (31.0-37.0) g/dL Neutrophils # (Manual) 11.00 H (1.3-7.7) k/uL Lymphocytes # (Manual) 0.78 L (1.0-4.8) k/uL Monocytes # (Manual) (0-1.0) k/uL Metamyelocytes # (Man) 0.39 H (0) k/uL Myelocytes # (Manual) 0.39 H (0) k/uL Nucleated RBCs (0-0) /100 WBC ABG pH 7.49 H (7.35-7.45) ABG pCO2 (35-45) mmHg ABG pO2 43 L* (83-108) mmHg ABG HCO3 32 H (21-25) mmol/L ABG Total CO2 33 H (19-24) mmol/L ABG O2 Saturation 80.7 L (94-97) % Chloride (98-107) mmol/L Carbon Dioxide (22-30) mmol/L BUN (7-17) mg/dL Creatinine (0.52-1.04) mg/dL Glucose (74-99) mg/dL POC Glucose (mg/dL) 179 H (70-110) mg/dL AST (14-36) U/L ALT (4-34) U/L Total Protein (6.3-8.2) g/dL Albumin (3.5-5.0) g/dL 11/15/21 11/15/21 11/16/21 Range/Units 17:13 23:08 00:14 WBC (3.8-10.6) k/uL MCHC (31.0-37.0) g/dL Neutrophils # (Manual) (1.3-7.7) k/uL Lymphocytes # (Manual) (1.0-4.8) k/uL Monocytes # (Manual) (0-1.0) k/uL Metamyelocytes # (Man) (0) k/uL Myelocytes # (Manual) (0) k/uL Nucleated RBCs (0-0) /100 WBC ABG pH 7.47 H (7.35-7.45) ABG pCO2 (35-45) mmHg ABG pO2 46 L* (83-108) mmHg ABG HCO3 30 H (21-25) mmol/L ABG Total CO2 31 H (19-24) mmol/L ABG O2 Saturation 83.8 L (94-97) % Chloride (98-107) mmol/L Carbon Dioxide (22-30) mmol/L BUN (7-17) mg/dL Creatinine (0.52-1.04) mg/dL Glucose (74-99) mg/dL POC Glucose (mg/dL) 208 H 132 H (70-110) mg/dL AST (14-36) U/L ALT (4-34) U/L Total Protein (6.3-8.2) g/dL Albumin (3.5-5.0) g/dL 11/16/21 11/16/21 11/16/21 Range/Units 00:20 02:31 04:35 WBC (3.8-10.6) k/uL MCHC (31.0-37.0) g/dL Neutrophils # (Manual) (1.3-7.7) k/uL Lymphocytes # (Manual) (1.0-4.8) k/uL Monocytes # (Manual) (0-1.0) k/uL Metamyelocytes # (Man) (0) k/uL Myelocytes # (Manual) (0) k/uL Nucleated RBCs (0-0) /100 WBC ABG pH 7.33 L 7.28 L (7.35-7.45) ABG pCO2 58 H 58 H (35-45) mmHg ABG pO2 46 L* 46 L* (83-108) mmHg ABG HCO3 31 H 27 H (21-25) mmol/L ABG Total CO2 33 H 29 H (19-24) mmol/L ABG O2 Saturation 76.2 L 72.5 L (94-97) % Chloride (98-107) mmol/L Carbon Dioxide (22-30) mmol/L BUN (7-17) mg/dL Creatinine (0.52-1.04) mg/dL Glucose (74-99) mg/dL POC Glucose (mg/dL) 300 H (70-110) mg/dL AST (14-36) U/L ALT (4-34) U/L Total Protein (6.3-8.2) g/dL Albumin (3.5-5.0) g/dL 11/16/21 11/16/21 11/16/21 Range/Units 05:43 05:51 05:51 WBC 39.2 H (3.8-10.6) k/uL MCHC 28.2 L (31.0-37.0) g/dL Neutrophils # (Manual) 34.10 H (1.3-7.7) k/uL Lymphocytes # (Manual) (1.0-4.8) k/uL Monocytes # (Manual) 1.57 H (0-1.0) k/uL Metamyelocytes # (Man) 1.96 H (0) k/uL Myelocytes # (Manual) (0) k/uL Nucleated RBCs 4 H (0-0) /100 WBC ABG pH 7.08 L* (7.35-7.45) ABG pCO2 85 H* (35-45) mmHg ABG pO2 50 L* (83-108) mmHg ABG HCO3 (21-25) mmol/L ABG Total CO2 28 H (19-24) mmol/L ABG O2 Saturation 70.1 L (94-97) % Chloride 108 H (98-107) mmol/L Carbon Dioxide 19 L (22-30) mmol/L BUN 45 H (7-17) mg/dL Creatinine 1.68 H (0.52-1.04) mg/dL Glucose 335 H (74-99) mg/dL POC Glucose (mg/dL) (70-110) mg/dL AST 296 H (14-36) U/L ALT 142 H (4-34) U/L Total Protein 4.8 L (6.3-8.2) g/dL Albumin 2.4 L (3.5-5.0) g/dL 11/16/21 Range/Units 06:12 WBC (3.8-10.6) k/uL MCHC (31.0-37.0) g/dL Neutrophils # (Manual) (1.3-7.7) k/uL Lymphocytes # (Manual) (1.0-4.8) k/uL Monocytes # (Manual) (0-1.0) k/uL Metamyelocytes # (Man) (0) k/uL Myelocytes # (Manual) (0) k/uL Nucleated RBCs (0-0) /100 WBC ABG pH (7.35-7.45) ABG pCO2 (35-45) mmHg ABG pO2 (83-108) mmHg ABG HCO3 (21-25) mmol/L ABG Total CO2 (19-24) mmol/L ABG O2 Saturation (94-97) % Chloride (98-107) mmol/L Carbon Dioxide (22-30) mmol/L BUN (7-17) mg/dL Creatinine (0.52-1.04) mg/dL Glucose (74-99) mg/dL POC Glucose (mg/dL) 311 H (70-110) mg/dL AST (14-36) U/L ALT (4-34) U/L Total Protein (6.3-8.2) g/dL Albumin (3.5-5.0) g/dL Microbiology - Last 24 Hours (Table) 11/09/21 12:25 Blood Culture - Final Blood No Growth after 144 hours
--- NOTE | 2021-11-16 16:46 | P.PCN ---
Date of Procedure: 11/16/21 Preoperative Diagnosis: COVID 19 pneumonia and respiratory failure Postoperative Diagnosis: COVID 19 related pneumonia Procedure(s) Performed: Arterial line insertion Anesthesia: local Surgeon: Sharmin Slaughter Estimated Blood Loss (ml): 0 Condition: critical Disposition: ICU Operative Findings: Indication: Hemodynamic monitoring. A time-out was completed verifying correct patient, procedure, site, positioning, and implant(s) or special equipment if applicable. Allens test was performed to ensure adequate perfusion. The patient s left wrist was prepped and draped in sterile fashion. 1% Lidocaine was used to anesthetize the area. An 18G Arrow arterial line was introduced into the radia l artery. The catheter was threaded over the guide wire and the needle was removed with appropriate pulsatile blood return. Blood loss was minimal. The catheter was then sutured in place to the skin and a sterile dressing applied. Perfusion to the extremity distal to the point of catheter insertion was checked and found to be adequate. The patient tolerated the procedure well and there were no complications.
[2021-11-16 18:53] LABS: Glucose,Whole Blood 269 mg/dL (70-110)
[2021-11-16] MEDS: ATORVASTATIN 40 MG TAB PO SCH (20:35)
[2021-11-16] MEDS: ARTIFICIAL TEARS-HYPROMELLOSE DROPS 15 ML BTL BOTH EYES SCH (20:39)
[2021-11-17] MEDS: CISATRACURIUM 200 MG in SODIUM CHLORIDE 0.9% 180 ML IV SCH ×3 (00:46→19:48)
[2021-11-17] MEDS: NOREPINEPHRINE 32 MG in SODIUM CHLORIDE 0.9% 218 ML IV SCH ×4 (00:47→20:20)
[2021-11-17 01:07] LABS: Glucose,Whole Blood 215 mg/dL (70-110)
[2021-11-17] MEDS: INSULIN ASPART (NovoLOG) 100 UNIT/ML VIAL SQ SCH ×7 (01:14→18:27)
[2021-11-17] MEDS: ARTIFICIAL TEARS-HYPROMELLOSE DROPS 15 ML BTL BOTH EYES SCH ×6 (01:15→20:27)
[2021-11-17 05:33] LABS: Basophils # (A) 0.2 k/uL (0-0.2); Basophils % (A) 1 %; Eosinophils % (A) 0 %; HCT 36.2 % (34.0-46.0); HGB 10.7 gm/dL (11.4-16.0); Hypochromasia Marked; Lymphocytes # (A) 0.5 k/uL (1.0-4.8); Lymphocytes % (A) 2 %; MCH 26.7 pg (25.0-35.0); MCHC 29.4 g/dL (31.0-37.0); MCV 90.7 fL (80.0-100.0); Mean Platelet Volume 8.7; Monocytes # (A) 0.7 k/uL (0-1.0); Monocytes % (A) 3 %; Neutrophils # (A) 23.2 k/uL (1.3-7.7); Neutrophils % (A) 93 %; Platelet Count 316 k/uL (150-450); RDW 15.6 % (11.5-15.5); WBC 24.9 k/uL (3.8-10.6)
[2021-11-17 05:42] LABS: Calcium 8.3 mg/dL (8.4-10.2); Potassium 5.5 mmol/L (3.5-5.1)
[2021-11-17 05:58] LABS: ABG Base Excess -4.3 mmol/L; ABG HCO3 26 mmol/L (21-25); ABG Oxygen Saturation 96.6 % (94-97); ABG PO2 92 mmHg (83-108); ABG TCO2 28 mmol/L (19-24); Allen Test Performed? Yes
[2021-11-17 06:06] LABS: ABG PH 7.09 (7.35-7.45)
[2021-11-17 06:07] LABS: ABG PCO2 85 mmHg (35-45)
[2021-11-17 06:12] LABS: Glucose,Whole Blood 191 mg/dL (70-110)
[2021-11-17] MEDS: INSULIN DETEMIR (LEVEMIR) 100 UNIT/ML SYR SQ SCH (06:31)
[2021-11-17] MEDS: LEVOTHYROXINE 100 MCG TAB PO SCH (06:33)
[2021-11-17] MEDS ORDERED: SODIUM ZIRCONIUM CYCLOSILICATE 10 GM PACKET PO ONE (08:00)
--- NOTE | 2021-11-17 08:42 | P.PN ---
Subjective Patient is seen for follow-up for acute kidney injury Patient had been maintained on IV fluids and renal function had improved with creatinine going down from about 2.0-1.0 on 10/2521. Serum creatinine had remained around 1.0 for the last 5 days. Yesterday patient had a cardiac arrest. She coded twice. She is currently on the vent. Patient had been hypoxic and requiring BiPAP. She is being treated for pneumonia. Patient is hypotensive requiring pressors. Urine output was low but picked up now to 62 175 mL per hour. FiO2 is at 100% Serum creatinine increased to 1.6 yesterday and today it is at 1.8 mg/dL. Objective - Vital Signs Vital signs: Vital Signs Temp 99.2 F 11/17/21 08:00 Pulse 94 11/17/21 08:00 Resp 32 H 11/17/21 08:00 BP 144/73 11/17/21 06:00 Pulse Ox 98 11/17/21 08:00 FiO2 100 11/17/21 08:00 Intake & Output 11/16/21 11/17/21 11/17/21 18:59 06:59 18:59 Intake Total 4541.084 1999.428 220 Output Total 543 1040 225 Balance 3998.084 959.428 -5 Weight 86.4 kg 94.4 kg Intake: IV 3100 1000 150 Cefepime 2 gm In Sodium 200 100 Chloride 0.9% 100 ml @ 25 mls/hr IVPB Q12HR [facility] Rx #:[id number] Sodium Chloride 0.45% 1, 900 900 150 000 ml @ 75 mls/hr IV . [id number] [facility] Rx#:[id number] Sodium Chloride 0.9% 1, 2000 000 ml @ 999 mls/hr IV . Q1H1M [facility] Rx#:[id number] Intake, IV Titration 1441.084 979.428 Amount Cisatracurium 200 mg In 91.066 78.97 Sodium Chloride 0.9% 180 ml @ 1 MCG/KG/MIN 5.184 mls/hr IV .Q24H [facility] Rx#: [id number] Norepinephrine 32 mg In 207.994 Sodium Chloride 0.9% 218 ml @ 0.84 MCG/KG/MIN 34. 02 mls/hr IV .Q7H21M [facility] Rx#:[id number] Norepinephrine 8 mg In 1245.180 516.000 Sodium Chloride 0.9% 250 ml @ 0.05 MCG/KG/MIN 8. 359 mls/hr IV .Q24H [facility] Rx#:[id number] propofoL 1,000 mg In 104.838 176.464 Empty Bag 1 bag @ 5 MCG/ KG/MIN 2.592 mls/hr IV . Q24H [facility] Rx#:[id number] Tube Feeding 20 40 Other 30 Output: Urine 543 1040 225 Other: Voiding Method Indwelling Catheter Indwelling Catheter ABP, PAP, CO, CI - Last Documented Arterial Blood Pressure 116/49 - Exam Patient is sedated and on the vent Bilateral breath sounds are heard Abdomen is soft nontender Examination of lower extremity shows edema trace bilaterally BICYCLE INSPECTOR exam could not be performed - Labs CBC & Chem 7: 11/17/21 04:52 11/17/21 04:52 Labs: Abnormal Lab Results - Last 24 Hours (Table) 11/16/21 11/16/21 11/16/21 Range/Units 12:00 12:02 12:28 WBC (3.8-10.6) k/uL Hgb (11.4-16.0) gm/dL MCHC (31.0-37.0) g/dL RDW (11.5-15.5) % Neutrophils # (1.3-7.7) k/uL Lymphocytes # (1.0-4.8) k/uL ABG pH 7.12 L* (7.35-7.45) ABG pCO2 86 H* (35-45) mmHg ABG pO2 62 L (83-108) mmHg ABG HCO3 28 H (21-25) mmol/L ABG Total CO2 31 H (19-24) mmol/L ABG O2 Saturation 87.6 L (94-97) % Potassium (3.5-5.1) mmol/L Chloride (98-107) mmol/L BUN (7-17) mg/dL Creatinine (0.52-1.04) mg/dL Glucose (74-99) mg/dL POC Glucose (mg/dL) 276 H (70-110) mg/dL Calcium (8.4-10.2) mg/dL Procalcitonin 11.10 H (0.02-0.09) ng/mL Urine Appearance (Clear) Urine Protein (Negative) Urine Glucose (UA) (Negative) Urine Blood (Negative) Ur Leukocyte Esterase (Negative) Urine RBC (0-5) /hpf Urine WBC (0-5) /hpf Amorphous Sediment (None) /hpf Urine Bacteria (None) /hpf Urine Mucus (None) /hpf 11/16/21 11/16/21 11/17/21 Range/Units 14:34 18:51 01:05 WBC (3.8-10.6) k/uL Hgb (11.4-16.0) gm/dL MCHC (31.0-37.0) g/dL RDW (11.5-15.5) % Neutrophils # (1.3-7.7) k/uL Lymphocytes # (1.0-4.8) k/uL ABG pH (7.35-7.45) ABG pCO2 (35-45) mmHg ABG pO2 (83-108) mmHg ABG HCO3 (21-25) mmol/L ABG Total CO2 (19-24) mmol/L ABG O2 Saturation (94-97) % Potassium (3.5-5.1) mmol/L Chloride (98-107) mmol/L BUN (7-17) mg/dL Creatinine (0.52-1.04) mg/dL Glucose (74-99) mg/dL POC Glucose (mg/dL) 269 H 215 H (70-110) mg/dL Calcium (8.4-10.2) mg/dL Procalcitonin (0.02-0.09) ng/mL Urine Appearance Cloudy H (Clear) Urine Protein 1+ H (Negative) Urine Glucose (UA) 2+ H (Negative) Urine Blood Trace H (Negative) Ur Leukocyte Esterase Small H (Negative) Urine RBC 8 H (0-5) /hpf Urine WBC 12 H (0-5) /hpf Amorphous Sediment Rare H (None) /hpf Urine Bacteria Rare H (None) /hpf Urine Mucus Occasional H (None) /hpf 11/17/21 11/17/21 11/17/21 Range/Units 04:52 04:52 05:53 WBC 24.9 H (3.8-10.6) k/uL Hgb 10.7 L (11.4-16.0) gm/dL MCHC 29.4 L (31.0-37.0) g/dL RDW 15.6 H (11.5-15.5) % Neutrophils # 23.2 H (1.3-7.7) k/uL Lymphocytes # 0.5 L (1.0-4.8) k/uL ABG pH 7.09 L* (7.35-7.45) ABG pCO2 85 H* (35-45) mmHg ABG pO2 (83-108) mmHg ABG HCO3 26 H (21-25) mmol/L ABG Total CO2 28 H (19-24) mmol/L ABG O2 Saturation (94-97) % Potassium 5.5 H (3.5-5.1) mmol/L Chloride 110 H (98-107) mmol/L BUN 53 H (7-17) mg/dL Creatinine 1.82 H (0.52-1.04) mg/dL Glucose 193 H (74-99) mg/dL POC Glucose (mg/dL) (70-110) mg/dL Calcium 8.3 L (8.4-10.2) mg/dL Procalcitonin (0.02-0.09) ng/mL Urine Appearance (Clear) Urine Protein (Negative) Urine Glucose (UA) (Negative) Urine Blood (Negative) Ur Leukocyte Esterase (Negative) Urine RBC (0-5) /hpf Urine WBC (0-5) /hpf Amorphous Sediment (None) /hpf Urine Bacteria (None) /hpf Urine Mucus (None) /hpf 11/17/21 Range/Units 06:11 WBC (3.8-10.6) k/uL Hgb (11.4-16.0) gm/dL MCHC (31.0-37.0) g/dL RDW (11.5-15.5) % Neutrophils # (1.3-7.7) k/uL Lymphocytes # (1.0-4.8) k/uL ABG pH (7.35-7.45) ABG pCO2 (35-45) mmHg ABG pO2 (83-108) mmHg ABG HCO3 (21-25) mmol/L ABG Total CO2 (19-24) mmol/L ABG O2 Saturation (94-97) % Potassium (3.5-5.1) mmol/L Chloride (98-107) mmol/L BUN (7-17) mg/dL Creatinine (0.52-1.04) mg/dL Glucose (74-99) mg/dL POC Glucose (mg/dL) 191 H (70-110) mg/dL Calcium (8.4-10.2) mg/dL Procalcitonin (0.02-0.09) ng/mL Urine Appearance (Clear) Urine Protein (Negative) Urine Glucose (UA) (Negative) Urine Blood (Negative) Ur Leukocyte Esterase (Negative) Urine RBC (0-5) /hpf Urine WBC (0-5) /hpf Amorphous Sediment (None) /hpf Urine Bacteria (None) /hpf Urine Mucus (None) /hpf Microbiology - Last 24 Hours (Table) 11/16/21 14:34 Urine Culture - Preliminary Urine,Voided 11/16/21 01:00 Sputum Culture - Preliminary Sputum Assessment and Plan Assessment: 1. Acute kidney injury secondary to sepsis, renal function had improved with creatinine going down from about 2-1.0 mg/dL. Renal function is worse again secondary to hypotension and cardiac arrest. Patient was oliguric but urine output has now increased.. She is maintained on high-dose pressors. Electrolytes are within normal range except for acidosis. 2. Hypernatremia associated with free water deficit currently improved 3. Status post cardiac arrest 4. Acute hypoxic respiratory failure secondary to pneumonia currently on the vent and maintained on antibiotics 5. History of recent coronavirus infection Plan: Continue half-normal saline Continue with antibiotics Monitor labs closely for electrolytes and acidosis [place] [id number]
--- NOTE | 2021-11-17 08:50 | XR ---
EXAMINATION TYPE: XR chest 1V portable DATE OF EXAM: 11/17/2021 COMPARISON: 11/16/2021 HISTORY: Shortness of breath TECHNIQUE: Single frontal view of the chest is obtained. FINDINGS: ET tube, NG tube and central line stable. Tip of the NG tube now loss. May be terminating in the low distal esophagus. Diffuse bilateral infiltrates, diffuse subcutaneous emphysema are stable . Degree of pneumomediastinum may be slightly improved. IMPRESSION: 1. Diffuse bilateral infiltrates stable. 2. Diffuse soft tissue emphysema. 3. may be mild improvement in the pneumomediastinum. 4. NG tube may be terminating in the distal esophagus correlate for position.
--- NOTE | 2021-11-17 09:18 | P.PN ---
Subjective Progress Note Date: 11/15/21 11/15/2021: Patient was seen for a follow-up. Patient continues to be on BiPAP. Patient appears generalized weak. Continues to be significantly encephalopathic. Please refer to examination below. 11/14/2021: Patient was seen for a follow-up. Patient initially seen by Dr. Breezy Orozco. Please refer to his note for details. Patient is a 50-year-old female who has altered mental status due to hypoxic encephalopathy. Patient is Covid and is on BiPAP. Patient had 2 CT head scan in the past which were negative. Patient continues to be encephalopathic. I spoke to patient's nurse, who mentioned that patient's family has mentioned that he shouldn't has declined in the last 1 year. She sometimes would talk about something, that has nothing to do with the conversation going on. She had periods of incontinence of urine as well. Patient's has to tell her to do personal hygiene, as she has been declining for last 1 year. Per nurse report, she has schizoaffective bipolar disorder. Also has diabetes hypertension and hypothyroidism. At present she is not following commands. Still on BiPAP. Per nursing report, earlier this year, in June 10 admission, she was walking and talking. Objective - Vital Signs Vital signs: Vital Signs Temp 97.8 F 11/15/21 12:00 Pulse 92 11/15/21 13:00 Resp 15 11/15/21 13:00 BP 104/59 11/15/21 13:00 Pulse Ox 96 11/15/21 13:00 FiO2 80 11/15/21 13:00 Intake & Output 11/14/21 11/15/21 11/15/21 18:59 06:59 18:59 Intake Total 3016.67 2060.721 1514.279 Output Total 2435 2805 895 Balance 581.67 -744.279 619.279 Weight 86.4 kg Intake: IV 950 975 450 D5W 50 Sodium Chloride 0.45% 1, 900 975 450 000 ml @ 75 mls/hr IV . [id number] [facility] Rx#:[id number] Intake, IV Titration 216.67 335.721 64.279 Amount Dexmedetomidine/0.9% NaCl 216.67 235.721 64.279 (Pmx) 400 mcg In Empty Bag 1 bag @ 0.2 MCG/KG/HR 4.763 mls/hr IV .Q21H [facility] Rx#:[id number] Levofloxacin 750Mg-D5w 100 Pmx 750 mg In Dextrose/ Water 1 150ml.bag @ 100 mls/hr IVPB Q24H [facility] Rx#: [id number] Tube Feeding 600 650 300 Other 1250 100 700 Output: Urine 2435 2805 895 Other: Voiding Method Indwelling Catheter Indwelling Catheter Indwelling Catheter # Bowel Movements 1 - Exam Patient is severely encephalopathic. She is on BiPAP. She appears to have labored respiration. Her pupils are equal, round and reacting. Visual welch could not be tested. Face could not be tested. Tongue and lower cranial nerves cannot be tested. On muscle strength testing, patient has no quality control checker. Patient did not hold her arms up when passively lifted. Patient would not wiggle her toes. She however feels equally to painful stimuli in all 4 extremities with facial grimacing and minimal movement. Deep tendon reflexes are 2 all over at the biceps, brachioradialis, knees and ankles and plantars are downgoing. No clonus. - Labs CBC & Chem 7: 11/17/21 04:52 11/17/21 04:52 Labs: Abnormal Lab Results - Last 24 Hours (Table) 11/14/21 11/14/21 11/15/21 Range/Units 18:01 23:35 06:24 WBC (3.8-10.6) k/uL Neutrophils # (Manual) (1.3-7.7) k/uL Lymphocytes # (Manual) (1.0-4.8) k/uL Metamyelocytes # (Man) (0) k/uL Myelocytes # (Manual) (0) k/uL ABG pH (7.35-7.45) ABG pO2 (83-108) mmHg ABG HCO3 (21-25) mmol/L ABG Total CO2 (19-24) mmol/L ABG O2 Saturation (94-97) % POC Glucose (mg/dL) 251 H 214 H 153 H (70-110) mg/dL 11/15/21 11/15/21 11/15/21 Range/Units 07:12 09:09 11:53 WBC 13.0 H (3.8-10.6) k/uL Neutrophils # (Manual) 11.00 H (1.3-7.7) k/uL Lymphocytes # (Manual) 0.78 L (1.0-4.8) k/uL Metamyelocytes # (Man) 0.39 H (0) k/uL Myelocytes # (Manual) 0.39 H (0) k/uL ABG pH 7.49 H (7.35-7.45) ABG pO2 43 L* (83-108) mmHg ABG HCO3 32 H (21-25) mmol/L ABG Total CO2 33 H (19-24) mmol/L ABG O2 Saturation 80.7 L (94-97) % POC Glucose (mg/dL) 179 H (70-110) mg/dL Microbiology - Last 24 Hours (Table) 11/08/21 18:47 Blood Culture - Final Blood No Growth after 144 hours 11/09/21 12:25 Blood Culture - Preliminary Blood No Growth after 120 hours Assessment and Plan Assessment: Encephalopathy seems due to multifactorial: Predominately hypoxic encephalopathy due to COVID-19 pneumonia. Also component of metabolic encephalopathy (hypernatremia, JAYLA). Seems unlikely meningoencephalitis History of seizure and she had a seizure about 6-8 years ago (arnol brown) while ?reported GTC on 03/15/2021 (but her 2.5 hour EEG and routine EEG was negative for seizure or epileptiform discharges) Acute hypoxemic respiratory failure secondary due to pneumonia Acute hypernatremia--resolved JAYLA--resolved Recent [place] virus infection History of diabetes History of hyperthyroid Schizoaffective disorder Primary history of tobacco use History of heavy alcohol use History of marijuana use Plan: An EEG is pending (cannot be performed at this time since on BiPAP). Continues to have significant respiratory issues. Continue thiamine 100mg daily PO. Patient's last CT head from 11/10/2021 was reviewed, showed no acute process. With persistent encephalopathy Consider MRI of the brain, but patient would not able to tolerate MRI because of being on BiPAP and significant respiratory difficulty. Every 2 neuro checks Patient is on Eliquis, also on aspirin 81 mg and Lipitor [address] Orozco has discussed with the patient's regarding her condition via phone and notified that his suspicion of meningeal encephalitis is very low but a lumbar puncture can be helpful but he stated he does not want to pursue with lumbar puncture. Nephrology team is on board Psychiatry team is on board. We'll defer the rest of the medical management to the primary and ICU team Patient condition is critical.
[2021-11-17] MEDS ORDERED: SODIUM BICARB 8.4% 50 ML SYR (1 MEQ/ML) IV STA ×2 (09:39)
--- NOTE | 2021-11-17 09:44 | P.PN ---
Subjective Progress Note Date: 11/17/21 50-year-old female, who is brought in by the [place] emergency services. She apparently resides at [facility] in that area. She apparently has a history of schizophrenia, as well as a history of recent infection with coronavirus. The patient was brought in because of mental status changes, and also low saturations. Apparently the patient was evaluated there and thought to have pneumonia. The patient was treated with Levaquin here. Currently, she seen in the emergency room, room 11. She is on 15 L high flow oxygen. She's getting saline at 75 mL an hour. I did have the opportunity to speak to the patient's , name Art. He was able to provide some history. [facility] as [facility], but is unable to prepare food for herself. Her mental status varies hour to hour and day today according to him. The patient herself can give me no history. She sees been here in the emergency department, she's been moaning and groaning. Her ch est x-ray shows bilateral patchy infiltrates. A blood gas was done and showed a pO2 of 89, pCO2 35, and pH is 7.332. She apparently has a history of diabetes, hypertension, hyperlipidemia, and hypothyroidism. White count 11.5, hemoglobin 12.6, hematocrit 41.3, with a normal platelet count. Sodium 157, potassium 4.3, chlorides 124, CO2 19, anion gap 14, BUN 50, creatinine 2.04. Her lactic acid was 1.2. Pro-calcitonin level is pending. Urine is yellow and cloudy. There is 1+ protein. Trace blood. Small positive leukocyte esterase, 7 RBCs, 9 WBCs, and many bacteria. Chest x-ray shows patchy bilateral infiltrates. Progress note dated 11/08/2021. 50-year-old female seen in the emergency department yesterday. She was brought in from one of the local nursing homes, with complaints of mental status changes, low saturations, and possibly pneumonia. The patient was initially seen in the ER, and then transferred to the intensive care, where she was seen yesterday and today, in room 254. She's currently on BiPAP. BiPAP settings are 12/5 and 65%. He is currently receiving Levaquin. Microbiologic cultures are negative. She did test positive for coronavirus infection. She's getting D5W 100 mL an hour Precedex at 0.5 mcg/kg per hour. White count was 12.7, hemoglobin 11.4, hematocrit 37.2, and platelet count 270,000. Sodium 153, potassium 4.5, chlorides 119, CO2 27, with a BUN and creatinine of 60, and 1.55. Chest x-ray continues to show bilateral airspace disease. Progress note dated 11/09/2021. 50-year-old female seen in consultation 2 days ago. She was brought in from one of the local nursing homes with complaints of mental status changes, possible pneumonia, and low saturations. The patient was seen initially in the emergency department, and was admitted to the intensive care unit. She remains on BiPAP, with settings of 12/5 and 80%. She's getting dexmedetomidine at 0.5 mcg/kg/h. She's getting D5W at 100 mL an hour. Today, we will attempt to get her off of dexmedetomidine, and replace it with Haldol IM. According to the nurse, she had a very uneventful night. White count 14.6, hemoglobin 11.4, hematocrit 38.2, and platelet count 315,000. Sodium 149, potassium 4.2, chlorides 117, CO2 24, BUN 44, and creatinine 1.27. Calcium is normal. Microbiologic studies are thus far negative. No chest x-ray today. CAT scan of the brain did not show anything acute. The patient is seen today 11/10/2021 in follow-up in the intensive care unit. S he remains on BiPAP 12/5 and 80% FiO2. She has required dexmedetomidine at 0.8 mcg/kg/h. Currently she is resting comfortably in bed. Chest x-ray reveals bilateral airspace disease. No evidence of pneumothorax or pleural effusions. Nasogastric tube remains in place. CT scan of the brain reveals an atrophic and chronic small vessel ischemic changes without acute intracranial process. Blood cultures revealed no growth. White count 15.2. Hemoglobin 11.2. Platelets 298. Sodium 150. Potassium 4.0. Chloride 118. BUN 36. Creatinine 1.13. Glucose 172. She remains on Decadron, Levaquin. Anticoagulated with Eliquis. Progress note dated 11/12/2021. The patient is again seen today in room 254. She remains on BiPAP, with settings of 12/5 and 55%. She is on saline at 10 mL an hour, and Precedex at 0.9 mcg/kg per hour. Today, we will discontinue the saline. We'll put her on dextrose at 100 mL an hour. She is receiving Jevity at 50 mL an hour, which is goal. Her oxygenation has improved. Just a couple days ago, she was on 100%. Sodium 152, potassium 3.9, chlorides 119, CO2 27, BUN 34, creatinine 1.07. Chest x-ray shows persistent infiltrate throughout the right midlung and right lower lobe lung zones, as well as in the left lower lobe. 11/13/2021, the patient is being seen for follow-up in the intensive care unit. The patient is a case of severe coronary related pneumonia. She is a [facility] resident. She presented to us with hypoxic respiratory failure and currently she is on a BiPAP. This morning, the patient is on a BiPAP pressure of 12/5 cm of water with an FiO2 of 55%. She had a follow-up chest x-ray that showed evidence of pneumomediastinum extending to her neck area. No evidence of any pneumothorax. There is diffuse bilateral airspace disease consistent with colloid 19 related pneumonia. The patient is tolerating the BiPAP without any m ajor difficulties pH is able to generate a tidal volume of 600. Her minute ventilation is quite high at this point in time. Her respiratory rate in the low 30s. She is on Precedex which is running at 1.2 mcg/kg per minute. She is a bit confused. She is extremely weak. She has a weak cough. Unable to raise her arms or legs. She follows simple commands intermittently. She has been on Decadron 6 mg IV every 24 hours. Along with BiPAP therapy, the patient has an NG tube in place and she is receiving enteral feeding for nutritional support and the patient is currently on Jevity 1.2 at the rate of 50 mL an hour. In terms of her blood work, the patient's sodium is 145 and the patient received D5 water at the rate of 30 mL an hour. Sodium level is normalized and is down to 145. BUN is at 40 with a creatinine of 1.08. Glucose is at 211. Calcium level is at 9.3. The patient otherwise is on Levemir insulin 20 units daily along with NovoLog sliding scale coverage. She has been covered empirically with IV antibiotics and the patient is receiving levofloxacin 750 mg every 24 hours. Her pro-calcitonin level at time of admission was 1.1. Inflammatory markers are not available. 11/14/2021, the patient is very much encephalopathic and lethargic. She is apparent on Precedex. While off the medication, the patient gets agitated and thrashes around and she becomes asynchronous with a BiPAP machine. Otherwise, while on Precedex, the patient is calm and comfortable and synchronous with the BiPAP machine. She is extremely lethargic, extremely weak, quite debilitated at this point in time. She remains BiPAP dependent and the current BiPAP settings of 12/5 with an FiO2 of 55%. The chest x-ray from today shows stable findings. No significant interval change. No worsening of the pneumomediastinum. NG tube is in a good location. The patient is generating tidal volumes of above 500 and her current respiratory rate is around 25 with a minute ventilation of 12.7 L per minute. She did have a bout of aspiration yesterday. This did not affect her oxygenation. The white cell causes 11 with a hemoglobin of 11.5. BUN is at 38 and a creatinine of 1.04 and his sodium level of 142. The patient remains on Decadron 6 mg IV every 24 hours. The patient remains on Levemir insulin 20 units subcu daily along with Novolin 70/30 coverage. The patient on half-normal saline at the rate of 75 mL's an hour. Electrolytes are all stable for now. No other significant events overnight. No seizure activity. The patient remains on Jevity 1.5 at the rate of 50 an hour. She is tolerating her tube feeds well. No abdominal distention. No bowel activity and the patient is going to receive a laxative suppository today. She is afebrile. Awaiting inflammatory markers. We will also repeat full calcitonin level. We also repeat d-dimer's. 11/15/2021, seeing the patient for a follow-up. Neurologically still the same. The patient is not communicating. She is profoundly weak. We'll try to wean off the Precedex yesterday and the patient became quite restless and agitated. Based on that, the patient was kept on Precedex which is currently running at 1.2 mcg/kg per minute. This case the patient quite comfortable and synchronous with the BiPAP machine. The patient remains on a BiPAP at a pressure of 12/5 cm of water with an FiO2 of 55%. And the patient's pulse ox has been fluctuating. Earlier this point she was at 97% and currently she is somewhat between 89-90%. Based on that, blood gases will be obtained to confirm the patient's oxygenation. The chest x-ray findings are essentially unchanged. The patient has some limited subcutaneous emphysema in the neck area. There is diffuse bilateral pulmonary infiltrates consistent with community related pneumonia. The patient's d-dimer is at 2.56. The patient also has a LDH level of 595 and a CRP level is at 3.6. The pro calcitonin level is at 0.1 and the patient remains on Decadron. The patient is also on anticoagulation with Eliquis. The patient's receiving enteral feeding for nutritional support. The patient on Jevity which is running at 50 mL an hour. She did have a Dulcolax suppository yesterday and she hasn't had any massive bowel movement.. Urine output is adequate. The rest of the electrolytes showing a sodium of 142, potassium of 4.3, BUN is at 38 and a creatinine is 1.0. The patient's echoes of 13 with a hemoglobin of 12.5. Most recent blood sugar is at 153. 11/16/2021, seeing the patient for a follow-up. Significant events occurred about the night. Mother the patient became progressively more hypoxic and we were at the point where we were unable to improve her oxygenation with a BiPAP machine. At that point, the round 11:30 PM yesterday, it was decided to go to intubate the patient. Intubation process was done by the [employer]. Post intubation, the patient remained hypoxic and I did the necessity ventilator changes. I put that on assist-control at the rate of 32, tidal volume of 375, FiO2 of 100% with a PEEP of 16 which ultimately was brought up to 22 acute ongoing hypoxemia. However, at around 4:22 AM, the patient had a episodes of hypotension followed by cardiac pulmonary arrest. She was in a PEA rhythm. The patient received 3 rounds of CPR with epinephrine. A second arrest occurred at 4:50 AM and this lasted for around a few minutes where one round of epinephrine and CPR was given to her with recovery and return of spontaneous circulation. This morning, the patient is intubated on mechanical ventilator. She is sedated with propofol which is currently running at 20 mcg/kg. The patient is also on Nimbex at 1 mcg/kg per minute. She is adequately sedated and paralyzed. She is on normal saline running at the rate of 75 mL an hour. She is on levo fed running at 0.8 mcg/kg per minute and the patient is also on vasopressin physio logic dose of 0.03. Note that post intubation, the patient developed profound hypotension and she had to be started on pressors also. The chest x-ray from today showing diffuse bilateral pulmonary infiltrates in addition to subcutaneous emphysema in the right neck area and pneumomediastinum along the left cardiac border. ET tube is in a good location. The patient's blood gases from this morning shows a pH of 7.08 with a pCO2 of 85 and a pO2 of 50. Her current pulse ox on 78 who 82%. The patient's peak airway pressures around 36. Static pressure is 24. The patient's white cell count is at 39 with a hemoglobin of 11 and a platelet count of 449. Sodium is at 142 with a potassium level of 5.1. BUN is 45 and a creatinine of 1.08. AST is 296, ALT is 142 and alkaline phosphatase is 66. The patient remains on Levemir insulin in those was brought up to 20 units along with NovoLog 10 units 4 times a day and a sliding scale coverage. The patient remains on Decadron 6 mg IV every 24 hours. I'm going to stop the IV Levaquin and has associated this patient to broader antibiotic coverage with IV cefepime. She is sedated and paralyzed. Hemodynamically unstable. Remains on a mechanical ventilator. Obviously prognosis is poor baseline above-mentioned comorbidities. 11/17/2021, the patient is critically ill, intubated on a mechanical ventilator porous-coated 19 related pneumonia with ARDS. This morning, the patient sedated and paralyzed. Propofol is running at 25 mcg/kg per minute and the patient is also on Nimbex at 2 mics of respiratory kilo gram per minute. She is adequately sedated and paralyzed. She continues to be on a mechanical ventilator with permissive hypercapnia. She is assist-control mode of mechanical ventilation at the rate of 32, tidal volumes at 375 mL with a FiO2 of 100% and a PEEP of 22. Peak airway pressures around 42. Static pressures around 40. The blood gases from today shows a pH of 7.09 with a pCO2 of 85 and pO2 of 92. The chest x-ray showing diffuse breath and pulmonary infiltrates. Subcutaneous emphysema in the right neck area. Diffuse bilateral pulmonary infiltrates are present and ET tube is in good location patient has a left subclavian triple-lumen catheter in place. An arterial line was also established yesterday without any major difficulties. At the same time, the patient remains on Decadron. The patient remains in a shock state with hypotension. She was quite hypotensive postintubation and she remained hypotensive for yesterday and today. Note that she is post cardiac arrest 2. Her cardiac rhythm is sinus. Echocardiogram was done and was showing a poor window an adequate assessment of the LV function was not obtained. Meanwhile, the patient remains on norepinephrine infusion and currently norepinephrine is running at a dose of 0.86 mcg/kg per minute and the patient is also on physiologic dose of vasopressin. IV fluids are in the form of half normal saline at the rate of 75 mL an hour. Her antibiotics was broadened and the patient is currently on IV cefepime and Levaquin was discontinued. Meanwhile, the patient is afebrile. The white cell count is currently down to 25 and the rest of the blood work shows a hemoglobin of 10.7 and a platelet count of 316. Rest of the electrolytes showing acute kidney injury. Creatinine is up to 1.8 on today's evaluation with a BUN of 53 and his sodium level of 142 with a potassium level of 5.5. Blood sugar is 191. Nephrology was aware and the patient was given a dose of Lokalma. The patient is also on vital AF which is running at the rate of 40 mL an hour. Her CODE STATUS is DO NOT RESUSCITATE. Family is agree to that. is being updated regularly on her condition which is essentially critical. Objective - Vital Signs Vital signs: Vital Signs Temp 99.2 F 11/17/21 08:00 Pulse 96 11/17/21 09:00 Resp 32 H 11/17/21 09:00 BP 95/59 11/17/21 09:00 Pulse Ox 98 11/17/21 09:00 FiO2 100 11/17/21 09:00 Intake & Output 11/16/21 11/17/21 11/17/21 18:59 06:59 18:59 Intake Total 4541.084 1999.428 355.443 Output Total 543 1040 315 Balance 3998.084 959.428 40.443 Weight 86.4 kg 94.4 kg Intake: IV 3100 1000 240 Cefepime 2 gm In Sodium 200 100 Chloride 0.9% 100 ml @ 25 mls/hr IVPB Q12HR [facility] Rx #:[id number] Sodium Chloride 0.45% 1, 900 900 240 000 ml @ 75 mls/hr IV . [id number] [facility] Rx#:[id number] Sodium Chloride 0.9% 1, 2000 000 ml @ 999 mls/hr IV . Q1H1M [facility] Rx#:[id number] Intake, IV Titration 1441.084 979.428 5.443 Amount Cisatracurium 200 mg In 91.066 78.97 Sodium Chloride 0.9% 180 ml @ 1 MCG/KG/MIN 5.184 mls/hr IV .Q24H [facility] Rx#: [id number] Norepinephrine 32 mg In 207.994 Sodium Chloride 0.9% 218 ml @ 0.84 MCG/KG/MIN 34. 02 mls/hr IV .Q7H21M [facility] Rx#:[id number] Norepinephrine 8 mg In 1245.180 516.000 Sodium Chloride 0.9% 250 ml @ 0.05 MCG/KG/MIN 8. 359 mls/hr IV .Q24H [facility] Rx#:[id number] propofoL 1,000 mg In 104.838 176.464 5.443 Empty Bag 1 bag @ 5 MCG/ KG/MIN 2.592 mls/hr IV . Q24H [facility] Rx#:[id number] Tube Feeding 20 80 Other 30 Output: Urine 543 1040 315 Other: Voiding Method Indwelling Catheter Indwelling Catheter ABP, PAP, CO, CI - Last Documented Arterial Blood Pressure 102/47 - Exam Gen. appearance the patient is calm and comfortable sedated intubated on a mechanical ventilator. The patient sedated and paralyzed for now. Orotracheal and orogastric tube are both in place. HEENT examination is grossly unremarkable. The patient has evidence of subcutaneous emphysema along the right neck area. Neck supple. Full range of motion. No adenopathy thyromegaly or neck vein distention. Subcutaneous emphysema along the right neck Cardiovascular examination reveals regular rhythm rate. S1-S2 normal. No S3 or S4. No discernible murmur noted. Heart sounds are distant. Lungs reveal scattered bilateral rhonchi and crackles. Breath sounds equal. No wheezes. The breath sounds are overall diminished Abdominal exam revealed normal bowel sounds. The abdomen was soft, non-tender, and without masses, organomegaly, or appreciable enlargement of the abdominal aorta. Extremities are intact. No cyanosis clubbing or edema. Skin is without rash or lesion. The patient has a triple-lumen catheter in her left subclavian and the patient also has a left arterial radial line. Neurologic examination is difficult to assess. As the patient is currently sedated and paralyzed. - Labs CBC & Chem 7: 11/17/21 04:52 11/17/21 04:52 Labs: Abnormal Lab Results - Last 24 Hours (Table) 11/16/21 11/16/21 11/16/21 Range/Units 12:00 12:02 12:28 WBC (3.8-10.6) k/uL Hgb (11.4-16.0) gm/dL MCHC (31.0-37.0) g/dL RDW (11.5-15.5) % Neutrophils # (1.3-7.7) k/uL Lymphocytes # (1.0-4.8) k/uL ABG pH 7.12 L* (7.35-7.45) ABG pCO2 86 H* (35-45) mmHg ABG pO2 62 L (83-108) mmHg ABG HCO3 28 H (21-25) mmol/L ABG Total CO2 31 H (19-24) mmol/L ABG O2 Saturation 87.6 L (94-97) % Potassium (3.5-5.1) mmol/L Chloride (98-107) mmol/L BUN (7-17) mg/dL Creatinine (0.52-1.04) mg/dL Glucose (74-99) mg/dL POC Glucose (mg/dL) 276 H (70-110) mg/dL Calcium (8.4-10.2) mg/dL Procalcitonin 11.10 H (0.02-0.09) ng/mL Urine Appearance (Clear) Urine Protein (Negative) Urine Glucose (UA) (Negative) Urine Blood (Negative) Ur Leukocyte Esterase (Negative) Urine RBC (0-5) /hpf Urine WBC (0-5) /hpf Amorphous Sediment (None) /hpf Urine Bacteria (None) /hpf Urine Mucus (None) /hpf 11/16/21 11/16/21 11/17/21 Range/Units 14:34 18:51 01:05 WBC (3.8-10.6) k/uL Hgb (11.4-16.0) gm/dL MCHC (31.0-37.0) g/dL RDW (11.5-15.5) % Neutrophils # (1.3-7.7) k/uL Lymphocytes # (1.0-4.8) k/uL ABG pH (7.35-7.45) ABG pCO2 (35-45) mmHg ABG pO2 (83-108) mmHg ABG HCO3 (21-25) mmol/L ABG Total CO2 (19-24) mmol/L ABG O2 Saturation (94-97) % Potassium (3.5-5.1) mmol/L Chloride (98-107) mmol/L BUN (7-17) mg/dL Creatinine (0.52-1.04) mg/dL Glucose (74-99) mg/dL POC Glucose (mg/dL) 269 H 215 H (70-110) mg/dL Calcium (8.4-10.2) mg/dL Procalcitonin (0.02-0.09) ng/mL Urine Appearance Cloudy H (Clear) Urine Protein 1+ H (Negative) Urine Glucose (UA) 2+ H (Negative) Urine Blood Trace H (Negative) Ur Leukocyte Esterase Small H (Negative) Urine RBC 8 H (0-5) /hpf Urine WBC 12 H (0-5) /hpf Amorphous Sediment Rare H (None) /hpf Urine Bacteria Rare H (None) /hpf Urine Mucus Occasional H (None) /hpf 11/17/21 11/17/21 11/17/21 Range/Units 04:52 04:52 05:53 WBC 24.9 H (3.8-10.6) k/uL Hgb 10.7 L (11.4-16.0) gm/dL MCHC 29.4 L (31.0-37.0) g/dL RDW 15.6 H (11.5-15.5) % Neutrophils # 23.2 H (1.3-7.7) k/uL Lymphocytes # 0.5 L (1.0-4.8) k/uL ABG pH 7.09 L* (7.35-7.45) ABG pCO2 85 H* (35-45) mmHg ABG pO2 (83-108) mmHg ABG HCO3 26 H (21-25) mmol/L ABG Total CO2 28 H (19-24) mmol/L ABG O2 Saturation (94-97) % Potassium 5.5 H (3.5-5.1) mmol/L Chloride 110 H (98-107) mmol/L BUN 53 H (7-17) mg/dL Creatinine 1.82 H (0.52-1.04) mg/dL Glucose 193 H (74-99) mg/dL POC Glucose (mg/dL) (70-110) mg/dL Calcium 8.3 L (8.4-10.2) mg/dL Procalcitonin (0.02-0.09) ng/mL Urine Appearance (Clear) Urine Protein (Negative) Urine Glucose (UA) (Negative) Urine Blood (Negative) Ur Leukocyte Esterase (Negative) Urine RBC (0-5) /hpf Urine WBC (0-5) /hpf Amorphous Sediment (None) /hpf Urine Bacteria (None) /hpf Urine Mucus (None) /hpf 11/17/21 Range/Units 06:11 WBC (3.8-10.6) k/uL Hgb (11.4-16.0) gm/dL MCHC (31.0-37.0) g/dL RDW (11.5-15.5) % Neutrophils # (1.3-7.7) k/uL Lymphocytes # (1.0-4.8) k/uL ABG pH (7.35-7.45) ABG pCO2 (35-45) mmHg ABG pO2 (83-108) mmHg ABG HCO3 (21-25) mmol/L ABG Total CO2 (19-24) mmol/L ABG O2 Saturation (94-97) % Potassium (3.5-5.1) mmol/L Chloride (98-107) mmol/L BUN (7-17) mg/dL Creatinine (0.52-1.04) mg/dL Glucose (74-99) mg/dL POC Glucose (mg/dL) 191 H (70-110) mg/dL Calcium (8.4-10.2) mg/dL Procalcitonin (0.02-0.09) ng/mL Urine Appearance (Clear) Urine Protein (Negative) Urine Glucose (UA) (Negative) Urine Blood (Negative) Ur Leukocyte Esterase (Negative) Urine RBC (0-5) /hpf Urine WBC (0-5) /hpf Amorphous Sediment (None) /hpf Urine Bacteria (None) /hpf Urine Mucus (None) /hpf Microbiology - Last 24 Hours (Table) 11/16/21 14:34 Urine Culture - Preliminary Urine,Voided 11/16/21 01:00 Sputum Culture - Preliminary Sputum Assessment and Plan Plan: Acute hypoxemic respiratory failure secondary to COVID 19 related pneumonia/ARDS, intubated on a mechanical ventilator, sedated and paralyzed, currently on low tidal volume mechanical ventilation with permissive hypercapnia. There is some stable subcutaneous emphysema along the right neck area. Chest x-ray showing diffuse bilateral pulmonary infiltrates. Acute hypotension, under investigation. Currently on a combination of norepinephrine infusion and vasopressin physiologic dose. Could be related to acidosis and mild hyperkalemia contributing to the lower BP, sepsis felt to be less likely. Nevertheless, the patient's antibiotics have been broadened up to IV cefepime. Acute cardio pulmonary arrest, probably related to severe hypoxemia/hypotension. The patient had cardiac arrest 2 requiring CPR and epinephrine and the patient had return of spontaneous circulation. Currently on pressors. The pressor requirements have been unchanged compared to yesterday History of recent coronavirus infection, 10/28/2021, [facility] Acute mental status changes, presumably secondary to infection. The patient is currently on propofol, intubated on mechanical ventilator and sedated and paralyzed. Acute kidney injury in the creatinine is up to 1.8 and the overall fluid balance is been +4.9 L over the past 24 hours in the urine output is in order of 90 mL an hour and the patient has a nonoliguric renal failure. Metabolic acidosis a combination of anion and non-anion gap type addition to a combination of metabolic and respiratory acidosis. Respiratory acidosis due to permissive hypercapnia. EN for nutritional support History of hypertension. History of hyperlipidemia. History of diabetes mellitus, blood sugar control is been poor and the patient would have the Levemir dose adjusted and it's up to 20 units along with a 10 units 4 times a day and sliding scale coverage. History of hypothyroidism. History of schizophrenia. Prior history of tobacco use. History of heavy alcohol use. History of marijuana use. Acute leukocytosis on that investigation Plan Condition is critical Continue ventilator support and necessity ventilator changes will be done. We are going to drop the FiO2 down to 90% and gradually wean it down as long as the saturation remains above 90%. We'll give the patient 2 Amp of sodium bicarb and put the patient bicarb infusion with 150 mEq at the rate of 75 mL an hour. The aim is to counteract her acidosis with some bicarb infusion. Unable to increase the minute ventilation and further due to higher peak and static pressures and possibility of barotrauma.. Give Lokalma 10 grams po x1 Continue Decadron Keep the patient sedated and paralyzed Continue pressors IV cefepime 2 g every 12 hours. Other sputum cultures still pending Monitor pneumomediastinum and subcutaneous emphysema in the neck area. Enteral feeding for nutritional support Very critical condition. We'll try to change the CODE STATUS to DO NOT RESUSCITATE after having a discussion with the . Overall condition unchanged This is a critically care evaluation was done and more than 30 minutes. Time with Patient: Greater than 30
[2021-11-17] MEDS: ASPIRIN 81 MG PO SCH (09:46)
[2021-11-17] MEDS: APIXABAN 5 MG TAB PO SCH ×2 (09:46→20:35)
[2021-11-17] MEDS: DEXAMETHASONE SOD PHOSPHATE 10 MG/ML 1 ML VIAL IVP SCH (09:46)
[2021-11-17] MEDS: CHLORHEXIDINE GLUCONATE 15 ML CUP MUCOUS MEM SCH ×2 (09:46→20:35)
[2021-11-17] MEDS: cloZAPine 100 MG TAB PO SCH ×3 (09:46→20:36)
[2021-11-17] MEDS: CEFEPIME 2 GM in SODIUM CHLORIDE 0.9% 100 ML IVPB SCH ×2 (09:46→20:36)
[2021-11-17] MEDS: lamoTRIgine 25 MG TAB PO SCH ×2 (09:47→20:38)
[2021-11-17] MEDS: THIAMINE 100 MG TAB PO SCH (09:48)
[2021-11-17] MEDS: PANTOPRAZOLE 40 MG/10 ML VIAL IV SCH (09:48)
[2021-11-17] MEDS: DEXTROSE 5% IN WATER 1,000 ML with SODIUM BICARB (1 MEQ/ML) 150 ML IV SCH (10:27)
[2021-11-17] MEDS: SODIUM CHLORIDE 0.45% 1,000 ML IV SCH (10:31)
[2021-11-17 12:19] LABS: Glucose,Whole Blood 249 mg/dL (70-110)
[2021-11-17] MEDS: SODIUM CHLORIDE 0.9% 50 ML with VASOPRESSIN 20 UNIT IVPB SCH ×2 (13:13)
[2021-11-17] MEDS ORDERED: SODIUM CHLORIDE 0.9% 1,000 ML IV ONE ×2 (18:16→18:58)
[2021-11-17 18:26] LABS: Glucose,Whole Blood 262 mg/dL (70-110)
--- NOTE | 2021-11-17 18:30 | EEG ---
ELECTROENCEPHALOGRAM REPORT DATE OF SERVICE: 11/17/2021 PREAMBLE: This is a 50-year-old female with cardiac arrest. Patient is comatose. EEG FINDINGS: A 21 channel digital EEG recorded with video component, utilizing 10/20 international system with referential and bipolar montages. Background consists of well- developed, poorly regulated, mixed frequencies of 2-3 hertz, moderate amplitude delta, mixed with some 5-6 hertz theta, as well as superimposed fast frequency beta activity seen in bihemispheric region. No reactivity to eye opening or closing was seen. Photic stimulation was not performed. Different stages of sleep were not seen. No focal or generalized epileptiform activity was seen. IMPRESSION: This is an abnormal EEG due to background slowing of at least moderate to severe degree. This is suggestive of generalized cerebral dysfunction as can be seen with toxic metabolic encephalopathy or related to diffuse structural brain abnormality. Clinical correlation is recommended. Slightly excessive superimposed fast frequency beta activity suggests medication effect. No epileptiform activity was seen. MMODL / IJN: [id number] / [facility]
[2021-11-17] MEDS: INSULIN REGULAR 100 UNIT in SODIUM CHLORIDE 0.9% 100 ML IV SCH (19:02)
[2021-11-17 19:03] LABS: Glucose,Whole Blood 218 mg/dL (70-110)
[2021-11-17 20:01] LABS: Glucose,Whole Blood 250 mg/dL (70-110)
[2021-11-17] MEDS: ATORVASTATIN 40 MG TAB PO SCH (20:36)
[2021-11-17 21:06] LABS: Glucose,Whole Blood 195 mg/dL (70-110)
[2021-11-17] MEDS ORDERED: SODIUM CHLORIDE 0.9% 2,000 ML IV ONE (21:34)
[2021-11-17 22:03] LABS: Glucose,Whole Blood 174 mg/dL (70-110)
[2021-11-17 23:01] LABS: Glucose,Whole Blood 133 mg/dL (70-110)
[2021-11-18 00:13] LABS: Glucose,Whole Blood 133 mg/dL (70-110)
[2021-11-18] MEDS: SODIUM CHLORIDE 0.9% 50 ML with VASOPRESSIN 20 UNIT IVPB SCH ×6 (00:33→21:48)
[2021-11-18] MEDS: ARTIFICIAL TEARS-HYPROMELLOSE DROPS 15 ML BTL BOTH EYES SCH ×6 (00:34→20:33)
[2021-11-18 00:58] LABS: Glucose,Whole Blood 139 mg/dL (70-110)
[2021-11-18 02:07] LABS: Glucose,Whole Blood 184 mg/dL (70-110)
[2021-11-18] MEDS: DEXTROSE 5% IN WATER 1,000 ML with SODIUM BICARB (1 MEQ/ML) 150 ML IV SCH ×2 (02:13→17:51)
[2021-11-18] MEDS: NOREPINEPHRINE 32 MG in SODIUM CHLORIDE 0.9% 218 ML IV SCH ×4 (02:27→20:05)
[2021-11-18 02:59] LABS: Glucose,Whole Blood 198 mg/dL (70-110)
[2021-11-18 03:54] LABS: Glucose,Whole Blood 182 mg/dL (70-110)
--- NOTE | 2021-11-18 04:33 | P.PN ---
Subjective Progress Note Date: 11/17/21 Encephalopathy; multifactorial Acute hypoxemic respiratory failure secondary due to pneumonia Acute hypernatremia--trending down JAYLA 50-year-old female, who is brought in by the [place] emergency services. She apparently resides at [facility] up in that area. She apparently has a history of schizophrenia, as well as a history of recent infection with coronavirus. The patient was brought in because of mental status changes, and also low saturations. Apparently the patient was evaluated there and thought to have pneumonia. The patient was treated with Levaquin here. Currently, she seen in the emergency room, room 11. She is on 15 L high flow oxygen. She's getting saline at 75 mL an hour. I did have the opportunity to speak to the patient's , name Art. He was able to provide some history. The patient is at the [place] as mentioned above, but is unable to prepare food for herself. Her mental status varies hour to hour and day today according to him. The patient herself can give me no history. She sees been here in the emergency department, she's been moaning and groaning. Her chest x-ray shows bilateral patchy infiltrates. A blood gas was done and showed a pO2 of 89, pCO2 35, and pH is 7.332. She apparently has a history of diabetes, hypertension, hyperlipidemia, and hypothyroidism. 11/11/2021 Patient is seen and evaluated in follow-up in the intensive care unit; remains on BiPAP 12/5 and 70% FiO2 to maintain O2 saturations in the 90s. She remains on dexmedetomidine at 1 mcg/kg per hour. D5 W2 125 ML's per hour. She is being nourished with Jevity 1.5 at 40 ML's per hour with a goal of 50 ML's per hour. She remains on antibiotics in the form of Levaquin. She is anticoagulated with Eliquis. Continued on Decadron. Asked x-ray shows increasing infiltrate in the right midlung zone and right lower lobe. Also developing infiltrate in the left perihilar region. Blood cultures reveal no growth. Sodium 144. Potassium 3.8. Bicarb 29. Creatinine 1.02. Glucose 266. AST 24. ALT 18. 11/12/2021 Patient is seen and evaluated in room at bedside; remains in ICU; per nursing staff patient is slightly more awake compared to yesterday Vital signs reveal temperature of 97.7, pulse 118, respiration 35, blood pressure of 91/59 with O2 saturation 92% with an FiO2 of 55% Labs are reviewed which revealed sodium of 152, potassium 2.9, BUN/creatinine of 304/1.07 with blood glucose of 186 Neurology on board for encephalopathy; likely related to COVID-19 pneumonia with metabolic encephalopathy given hypernatremia and acute renal injury; less likely meningoencephalitis; EEG is ordered and pending; patient remains on thiamine 100 mg daily; we will continue to have neuro checks every 3 hours Nephron board for acute renal injury secondary to septic syndrome; creatinine is improved; hypernatremia is deemed secondary to loss of free water due to high blood sugars; increase water intake via PEG tube is recommended cc per hour; labs will be redrawn later in the day; further recommendations pending 11/13/2021 Patient is seen in follow-up continues to be in the ICU with multiple medical consultations following. Patient is maintained on BiPAP with pulmonary hand glass cutter following closely. FiO2 is currently at 65% which is currently increased and PEEP remains 5. Patient also continues with albuterol treatments along with IV dexamethasone. Patient also with hypernatremia currently maintained on D5 and water with improvement in sodium and currently 145 and will continue. Blood sugars have been elevated and patient is maintained on every 6 sliding scale and long-acting and recommend continuing with Accu-Cheks before meals and at bedtime and as needed and will increase long-acting and continue to monitor closely. Chest x-ray this morning showing air in the soft tissues of the next as well as the mediastinum compatible with pneumomediastinum with bilateral infiltrates that are unchanged. Patient is afebrile currently. Patient also continues on IV Levaquin and will continue. 11/14/2021 Patient continues to be in the ICU with multiple medical consultations following including pulmonary. Patient is maintained on BiPAP and continues on Precedex with continued attempts at weaning. FiO2 is now 55% and settings of 12/5. Chest x-ray today shows interval reduction in the degree of the pneumomediastinum with bilateral patchy infiltrates that are stable. WBC is trending down and patient is maintained on Levaquin and will continue. Patient also continues on IV dexamethasone along with half-normal saline and will continue. Patient is anticoagulated with Eliquis and will continue. Patient is tolerating tube feeds well and no reported bowel movements and patient is receiving a laxative today. Patient is afebrile. 11/15/2021 Patient seen today and continues to be in critical condition in the ICU and remains Bipap dependent and also on precedex. Per nursing staff, oxygen saturations have been difficult to maintain adequately and FI02 has been increased to 80% with 12/6 settings. Chest xray shows pneumomediastinum and continued persistent patchy infiltrates that are stable. Sub-q emphysema noted on exam. Patient is afebrile and continued on tube feedings. Overall prognosis remains extremely guarded. 11/16/2021 Patient is seen this morning and respiratory status significantly declined and patient required mechanical intubation and is currently maintained on mechanical vent with an FiO2 of 100% and PEEP is 22 and continues to have poor oxygen saturations. Lengthy discussion was had with the family and are now agreeable to no code and would like to continue current measures. Patient per nursing staff had to CODE BLUE events losing pulse early this morning and is in critical condition. Patient is maintained on Cleviprex, Levophed, propofol and requiring pressor support as well. Patient also continues with IV antibiotics. Chest x- ray today shows no definite pneumothorax although a small right apical pneumothorax may be obscured by overlying structures with stable bilateral patchy airspace disease greater on the right. WBC is 39.2, hemoglobin is 11.7, and kidney functions worsening. Blood sugars are elevated and will increase and continue with sliding scale and long-acting. Overall Prognosis is extremely poor and guarded. 11/17/2021 She continues to be in the ICU under critical condition maintained on mechanical ventilation 100% FiO2 and oxygen saturations have slightly improved. Patient also is being started on bicarb drip, and maintained on Levophed, propofol, and IV antibiotics in the form of cefepime. Chest x-ray shows continuous subcutaneous emphysema with persistent bilateral patchy infiltrates and appears possibly some improvement in aeration. Kidney functions worsening and patient being started on bicarb drip and creatinine is 1.82 with a potassium of 5.5 today. White blood count elevated although trending down and is currently 24.9. Cultures are pending. Codes status has been addressed and change to no code per family members. Patient is currently having some low-grade temps of 99.2 and increased respirations and blood pressures are marginal. Review of systems: Unable to obtain as patient is now on mechanical ventilation and intubated and sedated Active Medications Apixaban (Apixaban 5 Mg Tab) 5 mg PO BID [facility]; Protocol Last Admin: 11/17/21 09:46 Dose: 5 mg Artificial Tears (Artificial Tears-Hypromellose Drops 15 Ml Btl) 1 drops BOTH EYES Q4HR [facility] Last Admin: 11/17/21 08:24 Dose: 1 drops Aspirin (Aspirin 81 Mg) 81 mg PO DAILY@0900 [facility] Last Admin: 11/17/21 09:46 Dose: 81 mg Atorvastatin Calcium (Atorvastatin 40 Mg Tab) 40 mg PO HS@2100 [facility] Last Admin: 11/16/21 20:35 Dose: 40 mg Chlorhexidine Gluconate (Chlorhexidine Gluconate 15 Ml Cup) 15 ml MUCOUS MEM BID [facility] Last Admin: 11/17/21 09:46 Dose: 15 ml Clozapine (Clozapine 100 Mg Tab) 200 mg PO TID@0900,1300,2100 [facility] Stop: 11/22/21 23:00 Last Admin: 11/17/21 09:46 Dose: 200 mg Dexamethasone Sodium Phosphate (Dexamethasone Sod Phosphate 10 Mg/Ml 1 Ml Vial) 6 mg IVP DAILY [facility] Last Admin: 11/17/21 09:46 Dose: 6 mg Dexmedetomidine HCl 400 mcg/ (IV Solution) 100 mls @ 4.763 mls/hr IV .Q21H [facility]; Protocol Last Titration: 11/15/21 23:30 Dose: 0 mcg/kg/hr, 0 mls/hr Sodium Chloride (Saline 0.45%) 1,000 mls @ 75 mls/hr IV .[id number] [facility] Last Admin: 11/16/21 12:25 Dose: 75 mls/hr Cisatracurium Besylate 200 mg/ (Sodium Chloride) 200 mls @ 5.184 mls/hr IV .Q24H [facility]; Protocol Last Admin: 11/17/21 00:46 Dose: 2 mcg/kg/min, 10.368 mls/hr Propofol 1,000 mg/ IV Solution 100 mls @ 2.592 mls/hr IV .Q24H [facility]; Protocol Last Titration: 11/17/21 08:45 Dose: 25 mcg/kg/min, 12.96 mls/hr Vasopressin 20 unit/ Sodium (Chloride) 51 mls @ 4.59 mls/hr IVPB .Q11H7M [facility] Last Admin: 11/16/21 22:39 Dose: 4.59 mls/hr Cefepime HCl 2 gm/ Sodium (Chloride) 100 mls @ 25 mls/hr IVPB Q12HR [facility]; Protocol Last Admin: 11/17/21 09:46 Dose: 25 mls/hr Norepinephrine Bitartrate 32 (mg/ Sodium Chloride) 250 mls @ 34.02 mls/hr IV .Q7H21M [facility]; Protocol Last Admin: 11/17/21 06:47 Dose: 0.86 mcg/kg/min, 34.83 mls/hr Sodium Bicarbonate 150 ml/ (Dextrose/Water) 1,150 mls @ 75 mls/hr IV .[id number] [facility] Insulin Aspart (Insulin Aspart (Novolog) 100 Unit/Ml Vial) 0 unit SQ Q6HR [facility]; Protocol Last Admin: 11/17/21 06:32 Dose: 2 unit Insulin Aspart (Insulin Aspart (Novolog) 100 Unit/Ml Vial) 10 unit SQ AC-TID [facility] Last Admin: 11/17/21 07:15 Dose: 10 unit Insulin Detemir (Insulin Detemir (Levemir) 100 Unit/Ml Syr) 20 unit SQ DAILY@0700 [facility] Last Admin: 11/17/21 06:31 Dose: 20 unit Lamotrigine (Lamotrigine 25 Mg Tab) 25 mg PO BID@0900,2100 [facility] Last Admin: 11/17/21 09:47 Dose: 25 mg Levothyroxine Sodium (Levothyroxine 100 Mcg Tab) 100 mcg PO DAILY@0600 [facility] Last Admin: 11/17/21 06:33 Dose: 100 mcg Miscellaneous Information (Pneumonia Protocol Utilized 1 Each Misc) 1 each PO ONCE PRN PRN Reason: Per Protocol Miscellaneous Information (Potassium Replacement Protocol 1 Each Misc) 1 each MISCELLANE DAILY PRN; Protocol PRN Reason: Per Protocol Naloxone HCl (Naloxone 0.4 Mg/Ml 1 Ml Vial) 0.2 mg IV Q2M PRN PRN Reason: Opioid Reversal Pantoprazole Sodium (Pantoprazole 40 Mg/10 Ml Vial) 40 mg IV DAILY [facility] Last Admin: 11/17/21 09:48 Dose: 40 mg Thiamine HCl (Thiamine 100 Mg Tab) 100 mg PO DAILY [facility] Last Admin: 11/17/21 09:48 Dose: 100 mg Physical exam: GENERAL EXAM: 50-year-old female patient, intubated on mechanical vent with an FiO2 of 100% and PEEP is 22 EYES: Normal reaction of pupils, equal size. NOSE: Clear with pink turbinates. THROAT: No erythema or exudates. NECK: No masses, no JVD. Subcutaneous emphysema noted of the neck and chest CHEST: No chest wall deformity. LUNGS: Diminished breath sounds bilaterally with some coarse rhonchi and crackles at the bases CVS: S1 and S2 muffled ABDOMEN: No hepatosplenomegaly, obese, normal bowel sounds, no guarding or rigidity. SKIN: No rashes Assessment: Encephalopathy, multifactorial: Predominately hypoxic encephalopathy due to COVID-19 pneumonia. Also component of metabolic encephalopathy (hypernatremia, JAYLA) History of seizure Acute hypoxemic respiratory failure secondary to pneumonia now requiring mechanical ventilation Acute hypernatremia JAYLA Recent COVID-19 infection Hypertension History of diabetes History of hypothyroidism Schizoaffective disorder Primary history of tobacco use History of heavy alcohol use History of marijuana use GI prophylaxis DVT prophylaxis No code Plan: Recommend to continue with close monitoring in the ICU and maintained on mec hanical ventilation at 100% and oxygen saturations marginally improved and FI02 is being titrated down to 90%.. Patient is also continued on propofol and also pressor support. Blood sugars elevated recommending sliding scale and Accu-Cheks before meals and at bedtime into a.m. and continue long-acting insulin and have increased the dosing Recommend to continue tube feedings Patient is continued on IV cefepime Multiple medical consultations following and will continue to monitor closely. Recommend repeat labs in a.m. Due to multiple complex medical issues, overall prognosis is extremely poor and guarded. CODE STATUS was addressed and changed to no code The impression and plan of care has been dictated by Sumi Baldwin, Nurse Practitioner as directed. Dr. Pan MD I have performed a history and examination and MDM of this patient, discussed the same with the dictator, and agree with the dictator's assessment and plan as written ,documented as a scribe. Based on total visit time, I have performed more than 50% of the visit. Objective - Vital Signs Vital signs: Vital Signs Temp 99.2 F 11/17/21 08:00 Pulse 96 11/17/21 09:00 Resp 32 H 11/17/21 09:00 BP 95/59 11/17/21 09:00 Pulse Ox 98 11/17/21 09:00 FiO2 100 11/17/21 09:00 Intake & Output 11/16/21 11/17/21 11/17/21 18:59 06:59 18:59 Intake Total 4541.084 1999.428 355.443 Output Total 543 1040 315 Balance 3998.084 959.428 40.443 Weight 86.4 kg 94.4 kg 94.4 kg Intake: IV 3100 1000 240 Cefepime 2 gm In Sodium 200 100 Chloride 0.9% 100 ml @ 25 mls/hr IVPB Q12HR [facility] Rx #:[id number] Sodium Chloride 0.45% 1, 900 900 240 000 ml @ 75 mls/hr IV . [id number] [facility] Rx#:[id number] Sodium Chloride 0.9% 1, 2000 000 ml @ 999 mls/hr IV . Q1H1M [facility] Rx#:[id number] Intake, IV Titration 1441.084 979.428 5.443 Amount Cisatracurium 200 mg In 91.066 78.97 Sodium Chloride 0.9% 180 ml @ 1 MCG/KG/MIN 5.184 mls/hr IV .Q24H [facility] Rx#: [id number] Norepinephrine 32 mg In 207.994 Sodium Chloride 0.9% 218 ml @ 0.84 MCG/KG/MIN 34. 02 mls/hr IV .Q7H21M [facility] Rx#:[id number] Norepinephrine 8 mg In 1245.180 516.000 Sodium Chloride 0.9% 250 ml @ 0.05 MCG/KG/MIN 8. 359 mls/hr IV .Q24H [facility] Rx#:[id number] propofoL 1,000 mg In 104.838 176.464 5.443 Empty Bag 1 bag @ 5 MCG/ KG/MIN 2.592 mls/hr IV . Q24H [facility] Rx#:[id number] Tube Feeding 20 80 Other 30 Output: Urine 543 1040 315 Other: Voiding Method Indwelling Catheter Indwelling Catheter ABP, PAP, CO, CI - Last Documented Arterial Blood Pressure 102/47 - Labs CBC & Chem 7: 11/17/21 04:52 11/17/21 04:52 Labs: Abnormal Lab Results - Last 24 Hours (Table) 11/16/21 11/16/21 11/16/21 Range/Units 12:00 12:02 12:28 WBC (3.8-10.6) k/uL Hgb (11.4-16.0) gm/dL MCHC (31.0-37.0) g/dL RDW (11.5-15.5) % Neutrophils # (1.3-7.7) k/uL Lymphocytes # (1.0-4.8) k/uL ABG pH 7.12 L* (7.35-7.45) ABG pCO2 86 H* (35-45) mmHg ABG pO2 62 L (83-108) mmHg ABG HCO3 28 H (21-25) mmol/L ABG Total CO2 31 H (19-24) mmol/L ABG O2 Saturation 87.6 L (94-97) % Potassium (3.5-5.1) mmol/L Chloride (98-107) mmol/L BUN (7-17) mg/dL Creatinine (0.52-1.04) mg/dL Glucose (74-99) mg/dL POC Glucose (mg/dL) 276 H (70-110) mg/dL Calcium (8.4-10.2) mg/dL Procalcitonin 11.10 H (0.02-0.09) ng/mL Urine Appearance (Clear) Urine Protein (Negative) Urine Glucose (UA) (Negative) Urine Blood (Negative) Ur Leukocyte Esterase (Negative) Urine RBC (0-5) /hpf Urine WBC (0-5) /hpf Amorphous Sediment (None) /hpf Urine Bacteria (None) /hpf Urine Mucus (None) /hpf 11/16/21 11/16/21 11/17/21 Range/Units 14:34 18:51 01:05 WBC (3.8-10.6) k/uL Hgb (11.4-16.0) gm/dL MCHC (31.0-37.0) g/dL RDW (11.5-15.5) % Neutrophils # (1.3-7.7) k/uL Lymphocytes # (1.0-4.8) k/uL ABG pH (7.35-7.45) ABG pCO2 (35-45) mmHg ABG pO2 (83-108) mmHg ABG HCO3 (21-25) mmol/L ABG Total CO2 (19-24) mmol/L ABG O2 Saturation (94-97) % Potassium (3.5-5.1) mmol/L Chloride (98-107) mmol/L BUN (7-17) mg/dL Creatinine (0.52-1.04) mg/dL Glucose (74-99) mg/dL POC Glucose (mg/dL) 269 H 215 H (70-110) mg/dL Calcium (8.4-10.2) mg/dL Procalcitonin (0.02-0.09) ng/mL Urine Appearance Cloudy H (Clear) Urine Protein 1+ H (Negative) Urine Glucose (UA) 2+ H (Negative) Urine Blood Trace H (Negative) Ur Leukocyte Esterase Small H (Negative) Urine RBC 8 H (0-5) /hpf Urine WBC 12 H (0-5) /hpf Amorphous Sediment Rare H (None) /hpf Urine Bacteria Rare H (None) /hpf Urine Mucus Occasional H (None) /hpf 11/17/21 11/17/21 11/17/21 Range/Units 04:52 04:52 05:53 WBC 24.9 H (3.8-10.6) k/uL Hgb 10.7 L (11.4-16.0) gm/dL MCHC 29.4 L (31.0-37.0) g/dL RDW 15.6 H (11.5-15.5) % Neutrophils # 23.2 H (1.3-7.7) k/uL Lymphocytes # 0.5 L (1.0-4.8) k/uL ABG pH 7.09 L* (7.35-7.45) ABG pCO2 85 H* (35-45) mmHg ABG pO2 (83-108) mmHg ABG HCO3 26 H (21-25) mmol/L ABG Total CO2 28 H (19-24) mmol/L ABG O2 Saturation (94-97) % Potassium 5.5 H (3.5-5.1) mmol/L Chloride 110 H (98-107) mmol/L BUN 53 H (7-17) mg/dL Creatinine 1.82 H (0.52-1.04) mg/dL Glucose 193 H (74-99) mg/dL POC Glucose (mg/dL) (70-110) mg/dL Calcium 8.3 L (8.4-10.2) mg/dL Procalcitonin (0.02-0.09) ng/mL Urine Appearance (Clear) Urine Protein (Negative) Urine Glucose (UA) (Negative) Urine Blood (Negative) Ur Leukocyte Esterase (Negative) Urine RBC (0-5) /hpf Urine WBC (0-5) /hpf Amorphous Sediment (None) /hpf Urine Bacteria (None) /hpf Urine Mucus (None) /hpf 11/17/21 Range/Units 06:11 WBC (3.8-10.6) k/uL Hgb (11.4-16.0) gm/dL MCHC (31.0-37.0) g/dL RDW (11.5-15.5) % Neutrophils # (1.3-7.7) k/uL Lymphocytes # (1.0-4.8) k/uL ABG pH (7.35-7.45) ABG pCO2 (35-45) mmHg ABG pO2 (83-108) mmHg ABG HCO3 (21-25) mmol/L ABG Total CO2 (19-24) mmol/L ABG O2 Saturation (94-97) % Potassium (3.5-5.1) mmol/L Chloride (98-107) mmol/L BUN (7-17) mg/dL Creatinine (0.52-1.04) mg/dL Glucose (74-99) mg/dL POC Glucose (mg/dL) 191 H (70-110) mg/dL Calcium (8.4-10.2) mg/dL Procalcitonin (0.02-0.09) ng/mL Urine Appearance (Clear) Urine Protein (Negative) Urine Glucose (UA) (Negative) Urine Blood (Negative) Ur Leukocyte Esterase (Negative) Urine RBC (0-5) /hpf Urine WBC (0-5) /hpf Amorphous Sediment (None) /hpf Urine Bacteria (None) /hpf Urine Mucus (None) /hpf Microbiology - Last 24 Hours (Table) 11/16/21 14:34 Urine Culture - Preliminary Urine,Voided 11/16/21 01:00 Sputum Culture - Preliminary Sputum
[2021-11-18 05:03] LABS: Glucose,Whole Blood 154 mg/dL (70-110)
[2021-11-18 05:07] LABS: Basophils # (A) 0.1 k/uL (0-0.2); Basophils % (A) 1 %; Eosinophils % (A) 0 %; HCT 27.6 % (34.0-46.0); Hypochromasia Marked; Lymphocytes # (A) 0.5 k/uL (1.0-4.8); Lymphocytes % (A) 2 %; MCH 26.9 pg (25.0-35.0); MCHC 29.7 g/dL (31.0-37.0); MCV 90.6 fL (80.0-100.0); Mean Platelet Volume 8.6; Monocytes # (A) 0.8 k/uL (0-1.0); Monocytes % (A) 4 %; Neutrophils # (A) 18.7 k/uL (1.3-7.7); Neutrophils % (A) 92 %; Platelet Count 264 k/uL (150-450); RBC 3.04 m/uL (3.80-5.40); RDW 15.6 % (11.5-15.5); WBC 20.2 k/uL (3.8-10.6)
[2021-11-18 05:16] LABS: Calcium 7.4 mg/dL (8.4-10.2); HGB 8.2 gm/dL (11.4-16.0); Potassium 4.1 mmol/L (3.5-5.1)
[2021-11-18] MEDS: LEVOTHYROXINE 100 MCG TAB PO SCH (05:45)
[2021-11-18 05:58] LABS: ABG Base Excess -0.6 mmol/L; ABG HCO3 28 mmol/L (21-25); ABG Oxygen Saturation 95.9 % (94-97); ABG PO2 78 mmHg (83-108); ABG TCO2 31 mmol/L (19-24); Allen Test Performed? Yes
[2021-11-18 05:58] LABS: Glucose,Whole Blood 147 mg/dL (70-110)
[2021-11-18 06:00] LABS: ABG PCO2 82 mmHg (35-45); ABG PH 7.15 (7.35-7.45)
[2021-11-18 07:05] LABS: Glucose,Whole Blood 147 mg/dL (70-110)
--- NOTE | 2021-11-18 07:05 | XR ---
EXAMINATION TYPE: XR chest 1V portable DATE OF EXAM: 11/18/2021 5:10 AM COMPARISON: Chest radiograph from one day prior. TECHNIQUE: XR chest 1V portable Portable AP radiograph of the chest.. CLINICAL INDICATION:Female, 50 years old with history of Tube placement; FINDINGS: Lungs/Pleura: Similar multifocal airspace opacities. No evidence of pneumothorax or pleural effusion. Pulmonary vascularity: Unremarkable. Heart/mediastinum: Cardiomediastinal silhouette is unremarkable. Musculoskeletal: No acute osseous pathology. Other findings: Subcutaneous emphysema scattered throughout the visualized thorax. Lines/Tubes: Endotracheal tube with distal tip above the aorta. Evaluation slightly limited given nasogastric tube in similar alignment. Nasogastric tube with its distal tip and side-port projecting under the diaphragm. Left central venous catheter with distal tip at the superior vena cava. IMPRESSION: 1. Similar multifocal airspace opacities. 2. Similar subcutaneous emphysema. 3. Stable support line and tubes.
[2021-11-18] MEDS ORDERED: SODIUM CHLORIDE 0.9% 1,000 ML IV ONE ×2 (08:08→09:15)
--- NOTE | 2021-11-18 08:08 | P.PN ---
Subjective Progress Note Date: 11/18/21 50-year-old female, who is brought in by the [place] emergency services. She apparently resides at [facility] in that area. She apparently has a history of schizophrenia, as well as a history of recent infection with coronavirus. The patient was brought in because of mental status changes, and also low saturations. Apparently the patient was evaluated there and thought to have pneumonia. The patient was treated with Levaquin here. Currently, she seen in the emergency room, room 11. She is on 15 L high flow oxygen. She's getting saline at 75 mL an hour. I did have the opportunity to speak to the patient's , name Art. He was able to provide some history. The patient is at the snf as mentioned above, but is unable to prepare food for herself. Her mental status varies hour to hour and day today according to him. The patient herself can give me no history. She sees been here in the emergency department, she's been moaning and groaning. Her ch est x-ray shows bilateral patchy infiltrates. A blood gas was done and showed a pO2 of 89, pCO2 35, and pH is 7.332. She apparently has a history of diabetes, hypertension, hyperlipidemia, and hypothyroidism. White count 11.5, hemoglobin 12.6, hematocrit 41.3, with a normal platelet count. Sodium 157, potassium 4.3, chlorides 124, CO2 19, anion gap 14, BUN 50, creatinine 2.04. Her lactic acid was 1.2. Pro-calcitonin level is pending. Urine is yellow and cloudy. There is 1+ protein. Trace blood. Small positive leukocyte esterase, 7 RBCs, 9 WBCs, and many bacteria. Chest x-ray shows patchy bilateral infiltrates. Progress note dated 11/08/2021. 50-year-old female seen in the emergency department yesterday. She was brought in from one of the local nursing homes, with complaints of mental status changes, low saturations, and possibly pneumonia. The patient was initially seen in the ER, and then transferred to the intensive care, where she was seen yesterday and today, in room 254. She's currently on BiPAP. BiPAP settings are 12/5 and 65%. He is currently receiving Levaquin. Microbiologic cultures are negative. She did test positive for coronavirus infection. She's getting D5W 100 mL an hour Precedex at 0.5 mcg/kg per hour. White count was 12.7, hemoglobin 11.4, hematocrit 37.2, and platelet count 270,000. Sodium 153, potassium 4.5, chlorides 119, CO2 27, with a BUN and creatinine of 60, and 1.55. Chest x-ray continues to show bilateral airspace disease. Progress note dated 11/09/2021. 50-year-old female seen in consultation 2 days ago. She was brought in from one of the local nursing homes with complaints of mental status changes, possible pneumonia, and low saturations. The patient was seen initially in the emergency department, and was admitted to the intensive care unit. She remains on BiPAP, with settings of 12/5 and 80%. She's getting dexmedetomidine at 0.5 mcg/kg/h. She's getting D5W at 100 mL an hour. Today, we will attempt to get her off of dexmedetomidine, and replace it with Haldol IM. According to the nurse, she had a very uneventful night. White count 14.6, hemoglobin 11.4, hematocrit 38.2, and platelet count 315,000. Sodium 149, potassium 4.2, chlorides 117, CO2 24, BUN 44, and creatinine 1.27. Calcium is normal. Microbiologic studies are thus far negative. No chest x-ray today. CAT scan of the brain did not show anything acute. The patient is seen today 11/10/2021 in follow-up in the intensive care unit. S he remains on BiPAP 12/5 and 80% FiO2. She has required dexmedetomidine at 0.8 mcg/kg/h. Currently she is resting comfortably in bed. Chest x-ray reveals bilateral airspace disease. No evidence of pneumothorax or pleural effusions. Nasogastric tube remains in place. CT scan of the brain reveals an atrophic and chronic small vessel ischemic changes without acute intracranial process. Blood cultures revealed no growth. White count 15.2. Hemoglobin 11.2. Platelets 298. Sodium 150. Potassium 4.0. Chloride 118. BUN 36. Creatinine 1.13. Glucose 172. She remains on Decadron, Levaquin. Anticoagulated with Eliquis. Progress note dated 11/12/2021. The patient is again seen today in room 254. She remains on BiPAP, with settings of 12/5 and 55%. She is on saline at 10 mL an hour, and Precedex at 0.9 mcg/kg per hour. Today, we will discontinue the saline. We'll put her on dextrose at 100 mL an hour. She is receiving Jevity at 50 mL an hour, which is goal. Her oxygenation has improved. Just a couple days ago, she was on 100%. Sodium 152, potassium 3.9, chlorides 119, CO2 27, BUN 34, creatinine 1.07. Chest x-ray shows persistent infiltrate throughout the right midlung and right lower lobe lung zones, as well as in the left lower lobe. 11/13/2021, the patient is being seen for follow-up in the intensive care unit. The patient is a case of severe coronary related pneumonia. She is a snf resident. She presented to us with hypoxic respiratory failure and currently she is on a BiPAP. This morning, the patient is on a BiPAP pressure of 12/5 cm of water with an FiO2 of 55%. She had a follow-up chest x-ray that showed evidence of pneumomediastinum extending to her neck area. No evidence of any pneumothorax. There is diffuse bilateral airspace disease consistent with colloid 19 related pneumonia. The patient is tolerating the BiPAP without any m ajor difficulties pH is able to generate a tidal volume of 600. Her minute ventilation is quite high at this point in time. Her respiratory rate in the low 30s. She is on Precedex which is running at 1.2 mcg/kg per minute. She is a bit confused. She is extremely weak. She has a weak cough. Unable to raise her arms or legs. She follows simple commands intermittently. She has been on Decadron 6 mg IV every 24 hours. Along with BiPAP therapy, the patient has an NG tube in place and she is receiving enteral feeding for nutritional support and the patient is currently on Jevity 1.2 at the rate of 50 mL an hour. In terms of her blood work, the patient's sodium is 145 and the patient received D5 water at the rate of 30 mL an hour. Sodium level is normalized and is down to 145. BUN is at 40 with a creatinine of 1.08. Glucose is at 211. Calcium level is at 9.3. The patient otherwise is on Levemir insulin 20 units daily along with NovoLog sliding scale coverage. She has been covered empirically with IV antibiotics and the patient is receiving levofloxacin 750 mg every 24 hours. Her pro-calcitonin level at time of admission was 1.1. Inflammatory markers are not available. 11/14/2021, the patient is very much encephalopathic and lethargic. She is apparent on Precedex. While off the medication, the patient gets agitated and thrashes around and she becomes asynchronous with a BiPAP machine. Otherwise, while on Precedex, the patient is calm and comfortable and synchronous with the BiPAP machine. She is extremely lethargic, extremely weak, quite debilitated at this point in time. She remains BiPAP dependent and the current BiPAP settings of 12/5 with an FiO2 of 55%. The chest x-ray from today shows stable findings. No significant interval change. No worsening of the pneumomediastinum. NG tube is in a good location. The patient is generating tidal volumes of above 500 and her current respiratory rate is around 25 with a minute ventilation of 12.7 L per minute. She did have a bout of aspiration yesterday. This did not affect her oxygenation. The white cell causes 11 with a hemoglobin of 11.5. BUN is at 38 and a creatinine of 1.04 and his sodium level of 142. The patient remains on Decadron 6 mg IV every 24 hours. The patient remains on Levemir insulin 20 units subcu daily along with Novolin 70/30 coverage. The patient on half-normal saline at the rate of 75 mL's an hour. Electrolytes are all stable for now. No other significant events overnight. No seizure activity. The patient remains on Jevity 1.5 at the rate of 50 an hour. She is tolerating her tube feeds well. No abdominal distention. No bowel activity and the patient is going to receive a laxative suppository today. She is afebrile. Awaiting inflammatory markers. We will also repeat full calcitonin level. We also repeat d-dimer's. 11/15/2021, seeing the patient for a follow-up. Neurologically still the same. The patient is not communicating. She is profoundly weak. We'll try to wean off the Precedex yesterday and the patient became quite restless and agitated. Based on that, the patient was kept on Precedex which is currently running at 1.2 mcg/kg per minute. This case the patient quite comfortable and synchronous with the BiPAP machine. The patient remains on a BiPAP at a pressure of 12/5 cm of water with an FiO2 of 55%. And the patient's pulse ox has been fluctuating. Earlier this point she was at 97% and currently she is somewhat between 89-90%. Based on that, blood gases will be obtained to confirm the patient's oxygenation. The chest x-ray findings are essentially unchanged. The patient has some limited subcutaneous emphysema in the neck area. There is diffuse bilateral pulmonary infiltrates consistent with community related pneumonia. The patient's d-dimer is at 2.56. The patient also has a LDH level of 595 and a CRP level is at 3.6. The pro calcitonin level is at 0.1 and the patient remains on Decadron. The patient is also on anticoagulation with Eliquis. The patient's receiving enteral feeding for nutritional support. The patient on Jevity which is running at 50 mL an hour. She did have a Dulcolax suppository yesterday and she hasn't had any massive bowel movement.. Urine output is adequate. The rest of the electrolytes showing a sodium of 142, potassium of 4.3, BUN is at 38 and a creatinine is 1.0. The patient's echoes of 13 with a hemoglobin of 12.5. Most recent blood sugar is at 153. 11/16/2021, seeing the patient for a follow-up. Significant events occurred about the night. Mother the patient became progressively more hypoxic and we were at the point where we were unable to improve her oxygenation with a BiPAP machine. At that point, the round 11:30 PM yesterday, it was decided to go to intubate the patient. Intubation process was done by the [facility]IG [facility]. Post intubation, the patient remained hypoxic and I did the necessity ventilator changes. I put that on assist-control at the rate of 32, tidal volume of 375, FiO2 of 100% with a PEEP of 16 which ultimately was brought up to 22 acute ongoing hypoxemia. However, at around 4:22 AM, the patient had a episodes of hypotension followed by cardiac pulmonary arrest. She was in a PEA rhythm. The patient received 3 rounds of CPR with epinephrine. A second arrest occurred at 4:50 AM and this lasted for around a few minutes where one round of epinephrine and CPR was given to her with recovery and return of spontaneous circulation. This morning, the patient is intubated on mechanical ventilator. She is sedated with propofol which is currently running at 20 mcg/kg. The patient is also on Nimbex at 1 mcg/kg per minute. She is adequately sedated and paralyzed. She is on normal saline running at the rate of 75 mL an hour. She is on levo fed running at 0.8 mcg/kg per minute and the patient is also on vasopressin physio logic dose of 0.03. Note that post intubation, the patient developed profound hypotension and she had to be started on pressors also. The chest x-ray from today showing diffuse bilateral pulmonary infiltrates in addition to subcutaneous emphysema in the right neck area and pneumomediastinum along the left cardiac border. ET tube is in a good location. The patient's blood gases from this morning shows a pH of 7.08 with a pCO2 of 85 and a pO2 of 50. Her current pulse ox on 78 who 82%. The patient's peak airway pressures around 36. Static pressure is 24. The patient's white cell count is at 39 with a hemoglobin of 11 and a platelet count of 449. Sodium is at 142 with a potassium level of 5.1. BUN is 45 and a creatinine of 1.08. AST is 296, ALT is 142 and alkaline phosphatase is 66. The patient remains on Levemir insulin in those was brought up to 20 units along with NovoLog 10 units 4 times a day and a sliding scale coverage. The patient remains on Decadron 6 mg IV every 24 hours. I'm going to stop the IV Levaquin and has associated this patient to broader antibiotic coverage with IV cefepime. She is sedated and paralyzed. Hemodynamically unstable. Remains on a mechanical ventilator. Obviously prognosis is poor baseline above-mentioned comorbidities. 11/17/2021, the patient is critically ill, intubated on a mechanical ventilator porous-coated 19 related pneumonia with ARDS. This morning, the patient sedated and paralyzed. Propofol is running at 25 mcg/kg per minute and the patient is also on Nimbex at 2 mics of respiratory kilo gram per minute. She is adequately sedated and paralyzed. She continues to be on a mechanical ventilator with permissive hypercapnia. She is assist-control mode of mechanical ventilation at the rate of 32, tidal volumes at 375 mL with a FiO2 of 100% and a PEEP of 22. Peak airway pressures around 42. Static pressures around 40. The blood gases from today shows a pH of 7.09 with a pCO2 of 85 and pO2 of 92. The chest x-ray showing diffuse breath and pulmonary infiltrates. Subcutaneous emphysema in the right neck area. Diffuse bilateral pulmonary infiltrates are present and ET tube is in good location patient has a left subclavian triple-lumen catheter in place. An arterial line was also established yesterday without any major difficulties. At the same time, the patient remains on Decadron. The patient remains in a shock state with hypotension. She was quite hypotensive postintubation and she remained hypotensive for yesterday and today. Note that she is post cardiac arrest 2. Her cardiac rhythm is sinus. Echocardiogram was done and was showing a poor window an adequate assessment of the LV function was not obtained. Meanwhile, the patient remains on norepinephrine infusion and currently norepinephrine is running at a dose of 0.86 mcg/kg per minute and the patient is also on physiologic dose of vasopressin. IV fluids are in the form of half normal saline at the rate of 75 mL an hour. Her antibiotics was broadened and the patient is currently on IV cefepime and Levaquin was discontinued. Meanwhile, the patient is afebrile. The white cell count is currently down to 25 and the rest of the blood work shows a hemoglobin of 10.7 and a platelet count of 316. Rest of the electrolytes showing acute kidney injury. Creatinine is up to 1.8 on today's evaluation with a BUN of 53 and his sodium level of 142 with a potassium level of 5.5. Blood sugar is 191. Nephrology was aware and the patient was given a dose of Lokalma. The patient is also on vital AF which is running at the rate of 40 mL an hour. Her CODE STATUS is DO NOT RESUSCITATE. Family is agree to that. is being updated regularly on her condition which is essentially critical. 11/18/2021, the patient is being seen for a follow-up. A case of COVID 19 related pneumonia with secondary ARDS and respiratory failure. This morning, the patient is sedated with propofol at 25 mcg/kg per minute and Nimbex is still running at 2 mcg/kg per minute. The patient is still on a mechanical ventilator, and we are still in the process of performing low tidal volume ventilation permissive hypercapnia. The respiratory rate is at 32 with a abdomen was 375. FiO2 is down to 60% and a PEEP is at 22. There is improvement in oxygenation. Currently all flex to 95%. Blood gas showed a pH of 7.15 with a pCO2 of 82 and pO2 of 78 and this was on FiO2 of 50%. Meanwhile, the peak airway pressure today's a 38 with acetic acid pressure of 30. The chest x-ray from today showed no major interval change. ET tube is in a good location. The patient had diffuse bilateral pulmonary infiltrates consistent with pneumonia/AR DS. There is evidence of subcutaneous emphysema which is worse compared to yesterday's chest x-ray. This is seen along the right upper chest area, neck area, left neck area, and left chest area. There is no evidence of pneumothorax. ET tube is in a good location. No significant cardiomegaly. O bviously, this is related to pneumonia and barotrauma caused by the mechanical ventilator. At the same time, the patient was quite acidotic. The patient was profoundly hypotensive. Based on that the patient was given IV bicarbonate started on a bicarb drip which is currently running at the rate of 75 mL an hour. Serum bicarbonate was up to 27. The acidosis is somewhat improved which is essentially a respiratory acidosis. The patient currently is still on pressors. Norepinephrine is running at 1 mcg/kg per minute and the patient is also on vasopressin physiologic dose. She was given a total of 4 L of IV fluids yesterday to augment her blood pressure. The mean arterial pressure currently is above 60. Overall fluid balance is at least 10 L positive over the past 24 hours and the patient's urine output is adequate and the order of 10 mL an hour. Sodium level is at 146. Creatinine is slightly improved compared to yesterday with a BUN of 59 and a creatinine of 1.39. The white cell count is at 20.2 with a hemoglobin of 8.2 and a platelet count of 264. Note that her white cell count is also improving. Cultures including urine cultures and blood cultures of been negative. The patient is empirically covered with IV cefepime. Echocardiogram was performed and was suboptimal due to poor window. The cardiac rhythm remains sinus. The patient remains on enteral feeding for nutritional support. The patient is receiving vitamin 1.2 at the rate of 55 mL an hour. She is a no CODE STATUS based on the Objective - Vital Signs Vital signs: Vital Signs Temp 98.9 F 11/18/21 06:15 Pulse 100 11/18/21 07:30 Resp 32 H 11/18/21 07:30 BP 99/52 11/18/21 07:30 Pulse Ox 95 11/18/21 07:30 FiO2 60 11/18/21 07:30 Intake & Output 11/17/21 11/18/21 11/18/21 18:59 06:59 18:59 Intake Total 2348.210 6391.740 133.434 Output Total 1475 1285 150 Balance 952.834 2565.740 -16.566 Weight 94.4 kg Intake: IV 940 5000 75 Cefepime 2 gm In Sodium 100 100 Chloride 0.9% 100 ml @ 25 mls/hr IVPB Q12HR DENISSE Rx #:[id number] Dextrose 5% in Water 1, 450 900 75 000 ml @ 75 mls/hr IV . [id number] DENISSE with Sodium Bicarb (1 Meq/ml) 150 ml Rx#:[id number] Sodium Chloride 0.45% 1, 390 000 ml @ 75 mls/hr IV . [id number] DENISSE Rx#:[id number] Sodium Chloride 0.9% 1, 4000 000 ml @ 999 mls/hr IV . Q1H1M ONE Rx#:[id number] Intake, IV Titration 578.210 641.740 3.434 Amount Cisatracurium 200 mg In 182.304 15.034 Sodium Chloride 0.9% 180 ml @ 1 MCG/KG/MIN 5.184 mls/hr IV .Q24H DENISSE Rx#: [id number] Insulin Regular 100 unit 54.238 3.434 In Sodium Chloride 0.9% 100 ml @ Per Protocol IV .Q0M DENISSE Rx#:[id number] Norepinephrine 32 mg In 295.906 417.596 Sodium Chloride 0.9% 218 ml @ 0.84 MCG/KG/MIN 34. 02 mls/hr IV .Q7H21M DENISSE Rx#:[id number] propofoL 1,000 mg In 100.000 154.872 Empty Bag 1 bag @ 5 MCG/ KG/MIN 2.592 mls/hr IV . Q24H DENISSE Rx#:[id number] Tube Feeding 515 660 55 Lipid 75 Dextrose 5% in Water 1, 75 000 ml @ 75 mls/hr IV . [id number] DENISSE with Sodium Bicarb (1 Meq/ml) 150 ml Rx#:[id number] Other 240 90 Output: Urine 1475 1285 150 Other: Voiding Method Indwelling Catheter Indwelling Catheter ABP, PAP, CO, CI - Last Documented Arterial Blood Pressure 96/45 - Exam Gen. appearance the patient is calm and comfortable sedated intubated on a mechanical ventilator. The patient sedated and paralyzed for now. Orotracheal and orogastric tube are both in place. HEENT examination is grossly unremarkable. The patient has evidence of subcutaneous emphysema along the right neck area. Neck supple. Full range of motion. No adenopathy thyromegaly or neck vein distention. Subcutaneous emphysema along the right neck Cardiovascular examination reveals regular rhythm rate. S1-S2 normal. No S3 or S4. No discernible murmur noted. Heart sounds are distant. Lungs reveal scattered bilateral rhonchi and crackles. Breath sounds equal. No wheezes. The breath sounds are overall diminished Abdominal exam revealed normal bowel sounds. The abdomen was soft, non-tender, and without masses, organomegaly, or appreciable enlargement of the abdominal aorta. Extremities are intact. No cyanosis clubbing or edema. Skin is without rash or lesion. The patient has a triple-lumen catheter in her left subclavian and the patient also has a left arterial radial line. Neurologic examination is difficult to assess. As the patient is currently sedated and paralyzed. - Labs CBC & Chem 7: 11/18/21 04:40 11/18/21 04:40 Labs: Abnormal Lab Results - Last 24 Hours (Table) 11/17/21 11/17/21 11/17/21 Range/Units 12:17 18:24 19:02 WBC (3.8-10.6) k/uL RBC (3.80-5.40) m/uL Hgb (11.4-16.0) gm/dL Hct (34.0-46.0) % MCHC (31.0-37.0) g/dL RDW (11.5-15.5) % Neutrophils # (1.3-7.7) k/uL Lymphocytes # (1.0-4.8) k/uL ABG pH (7.35-7.45) ABG pCO2 (35-45) mmHg ABG pO2 (83-108) mmHg ABG HCO3 (21-25) mmol/L ABG Total CO2 (19-24) mmol/L Sodium (137-145) mmol/L Chloride (98-107) mmol/L BUN (7-17) mg/dL Creatinine (0.52-1.04) mg/dL Glucose (74-99) mg/dL POC Glucose (mg/dL) 249 H 262 H 218 H (70-110) mg/dL Calcium (8.4-10.2) mg/dL 11/17/21 11/17/21 11/17/21 Range/Units 20:00 21:04 21:59 WBC (3.8-10.6) k/uL RBC (3.80-5.40) m/uL Hgb (11.4-16.0) gm/dL Hct (34.0-46.0) % MCHC (31.0-37.0) g/dL RDW (11.5-15.5) % Neutrophils # (1.3-7.7) k/uL Lymphocytes # (1.0-4.8) k/uL ABG pH (7.35-7.45) ABG pCO2 (35-45) mmHg ABG pO2 (83-108) mmHg ABG HCO3 (21-25) mmol/L ABG Total CO2 (19-24) mmol/L Sodium (137-145) mmol/L Chloride (98-107) mmol/L BUN (7-17) mg/dL Creatinine (0.52-1.04) mg/dL Glucose (74-99) mg/dL POC Glucose (mg/dL) 250 H 195 H 174 H (70-110) mg/dL Calcium (8.4-10.2) mg/dL 11/17/21 11/18/21 11/18/21 Range/Units 22:59 00:10 00:56 WBC (3.8-10.6) k/uL RBC (3.80-5.40) m/uL Hgb (11.4-16.0) gm/dL Hct (34.0-46.0) % MCHC (31.0-37.0) g/dL RDW (11.5-15.5) % Neutrophils # (1.3-7.7) k/uL Lymphocytes # (1.0-4.8) k/uL ABG pH (7.35-7.45) ABG pCO2 (35-45) mmHg ABG pO2 (83-108) mmHg ABG HCO3 (21-25) mmol/L ABG Total CO2 (19-24) mmol/L Sodium (137-145) mmol/L Chloride (98-107) mmol/L BUN (7-17) mg/dL Creatinine (0.52-1.04) mg/dL Glucose (74-99) mg/dL POC Glucose (mg/dL) 133 H 133 H 139 H (70-110) mg/dL Calcium (8.4-10.2) mg/dL 11/18/21 11/18/21 11/18/21 Range/Units 02:05 02:56 03:52 WBC (3.8-10.6) k/uL RBC (3.80-5.40) m/uL Hgb (11.4-16.0) gm/dL Hct (34.0-46.0) % MCHC (31.0-37.0) g/dL RDW (11.5-15.5) % Neutrophils # (1.3-7.7) k/uL Lymphocytes # (1.0-4.8) k/uL ABG pH (7.35-7.45) ABG pCO2 (35-45) mmHg ABG pO2 (83-108) mmHg ABG HCO3 (21-25) mmol/L ABG Total CO2 (19-24) mmol/L Sodium (137-145) mmol/L Chloride (98-107) mmol/L BUN (7-17) mg/dL Creatinine (0.52-1.04) mg/dL Glucose (74-99) mg/dL POC Glucose (mg/dL) 184 H 198 H 182 H (70-110) mg/dL Calcium (8.4-10.2) mg/dL 11/18/21 11/18/21 11/18/21 Range/Units 04:40 04:40 05:01 WBC 20.2 H (3.8-10.6) k/uL RBC 3.04 L (3.80-5.40) m/uL Hgb 8.2 L D (11.4-16.0) gm/dL Hct 27.6 L (34.0-46.0) % MCHC 29.7 L (31.0-37.0) g/dL RDW 15.6 H (11.5-15.5) % Neutrophils # 18.7 H (1.3-7.7) k/uL Lymphocytes # 0.5 L (1.0-4.8) k/uL ABG pH (7.35-7.45) ABG pCO2 (35-45) mmHg ABG pO2 (83-108) mmHg ABG HCO3 (21-25) mmol/L ABG Total CO2 (19-24) mmol/L Sodium 146 H (137-145) mmol/L Chloride 117 H (98-107) mmol/L BUN 59 H (7-17) mg/dL Creatinine 1.39 H (0.52-1.04) mg/dL Glucose 160 H (74-99) mg/dL POC Glucose (mg/dL) 154 H (70-110) mg/dL Calcium 7.4 L (8.4-10.2) mg/dL 11/18/21 11/18/21 11/18/21 Range/Units 05:53 05:56 07:03 WBC (3.8-10.6) k/uL RBC (3.80-5.40) m/uL Hgb (11.4-16.0) gm/dL Hct (34.0-46.0) % MCHC (31.0-37.0) g/dL RDW (11.5-15.5) % Neutrophils # (1.3-7.7) k/uL Lymphocytes # (1.0-4.8) k/uL ABG pH 7.15 L* (7.35-7.45) ABG pCO2 82 H* (35-45) mmHg ABG pO2 78 L (83-108) mmHg ABG HCO3 28 H (21-25) mmol/L ABG Total CO2 31 H (19-24) mmol/L Sodium (137-145) mmol/L Chloride (98-107) mmol/L BUN (7-17) mg/dL Creatinine (0.52-1.04) mg/dL Glucose (74-99) mg/dL POC Glucose (mg/dL) 147 H 147 H (70-110) mg/dL Calcium (8.4-10.2) mg/dL Microbiology - Last 24 Hours (Table) 11/16/21 14:34 Urine Culture - Final Urine,Voided 11/16/21 12:02 Blood Culture - Preliminary Blood No Growth after 24 hours 11/16/21 12:02 Blood Culture - Preliminary Blood No Growth after 24 hours Assessment and Plan Plan: Acute hypoxemic respiratory failure secondary to COVID 19 related pneumonia/ARDS, intubated on a mechanical ventilator, sedated and paralyzed, currently on low tidal volume mechanical ventilation with permissive hypercapnia. There is worsening in the subcutaneous emphysema bilaterally. The patient is receiving permissive hypercapnia, low tidal volume ventilation. Chest x-ray was noted. Blood gases was noted. The patient is having adequate oxygenation for now. Acute hypotension, under investigation. Currently on a combination of norepinephrine infusion and vasopressin physiologic dose. Blood pressure is stable for now on a combination of norepinephrine infusion and vasopressin. The patient was aggressively resuscitated IV fluids. Urine output is adequate. I'm considering gradually wean off the norepinephrine infusion. Cultures are all negative. Echocardiogram was noted. This is probably a combination of post cardiac arrest and posterior story failure/acidosis induced hypotension. Septic event is felt to be less likely. The white cell count is improving. Acute cardio pulmonary arrest, probably related to severe hypoxemia/hypotension. The patient had cardiac arrest 2 requiring CPR and epinephrine and the patient had return of spontaneous circulation. Currently on pressors. The pressor requirements have been unchanged compared to yesterday History of recent coronavirus infection, 10/28/2021, [facility] Acute mental status changes prior to intubation mechanical ventilation, presumably secondary to infection. The patient is currently on propofol, intubated on mechanical ventilator and sedated and paralyzed. Acute kidney injury in the creatinine is improving is down to 1.46 and the patient is producing adequate amount of urine output Metabolic acidosis a combination of anion and non-anion gap type addition to a combination of metabolic and respiratory acidosis. Respiratory acidosis due to permissive hypercapnia. The acidosis improving while the patient being done bicarb infusion EN for nutritional support History of hypertension. History of hyperlipidemia. History of diabetes mellitus, blood sugar controled with insulin drip @3 U/HR History of hypothyroidism. History of schizophrenia. Prior history of tobacco use. History of heavy alcohol use. History of marijuana use. Acute leukocytosis on that investigation, improving Plan Condition is critical Continue ventilator support and necessity ventilator changes will be done. WEAN DOWN THE FIO2 FURTHER CONTINUE THE BICARB INFUSION and Free water through the NGT 300c q 6 hours Give another 2 liters bolus Wean down the pressors if possible Continue Decadron Keep the patient sedated and paralyzed Continue IV cefepime 2 g every 12 hours. Monitor pneumomediastinum and subcutaneous emphysema in the neck area and the chest area Enteral feeding for nutritional support Very critical condition. We'll try to change the CODE STATUS to DO NOT RESUSCITATE after having a discussion with the . Overall condition unchanged This is a critically care evaluation was done and more than 30 minutes. Time with Patient: Greater than 30
[2021-11-18 08:12] LABS: Glucose,Whole Blood 142 mg/dL (70-110)
[2021-11-18] MEDS: APIXABAN 5 MG TAB PO SCH ×2 (08:22→20:38)
[2021-11-18] MEDS: DEXAMETHASONE SOD PHOSPHATE 10 MG/ML 1 ML VIAL IVP SCH (08:22)
[2021-11-18] MEDS: ASPIRIN 81 MG PO SCH (08:22)
[2021-11-18] MEDS: CHLORHEXIDINE GLUCONATE 15 ML CUP MUCOUS MEM SCH ×2 (08:22→20:38)
[2021-11-18] MEDS: THIAMINE 100 MG TAB PO SCH (08:22)
[2021-11-18] MEDS: PANTOPRAZOLE 40 MG/10 ML VIAL IV SCH (08:23)
[2021-11-18] MEDS: CEFEPIME 2 GM in SODIUM CHLORIDE 0.9% 100 ML IVPB SCH ×2 (08:24→20:36)
--- NOTE | 2021-11-18 08:57 | P.PN ---
Subjective Patient is seen in follow-up for acute kidney injury. Patient has a cardiac arrest this admission. She is currently intubated. She is maintained on Levophed and vasopressin. Renal function better today. Receiving tube feeds. On bicarb drip as well. Vital signs are stable. General: Resting in bed. On vasopressor support. HEENT: Intubated. LUNGS: Breath sounds decreased. HEART: Rate and Rhythm are regular. ABDOMEN: Soft, no distention. EXTREMITITES: No edema. Objective - Vital Signs Vital signs: Vital Signs Temp 100.1 F H 11/18/21 08:00 Pulse 99 11/18/21 08:00 Resp 32 H 11/18/21 08:00 BP 99/52 11/18/21 08:00 Pulse Ox 95 11/18/21 08:00 FiO2 60 11/18/21 07:30 Intake & Output 11/17/21 11/18/21 11/18/21 18:59 06:59 18:59 Intake Total 2348.210 6391.740 293.434 Output Total 1475 1285 195 Balance 484.340 3082.740 98.434 Weight 94.4 kg Intake: IV 940 5000 150 Cefepime 2 gm In Sodium 100 100 Chloride 0.9% 100 ml @ 25 mls/hr IVPB Q12HR [facility] Rx #:[id number] Dextrose 5% in Water 1, 450 900 150 000 ml @ 75 mls/hr IV . [id number] [facility] with Sodium Bicarb (1 Meq/ml) 150 ml Rx#:[id number] Sodium Chloride 0.45% 1, 390 000 ml @ 75 mls/hr IV . [id number] [facility] Rx#:[id number] Sodium Chloride 0.9% 1, 4000 000 ml @ 999 mls/hr IV . Q1H1M [facility] Rx#:[id number] Intake, IV Titration 578.210 641.740 3.434 Amount Cisatracurium 200 mg In 182.304 15.034 Sodium Chloride 0.9% 180 ml @ 1 MCG/KG/MIN 5.184 mls/hr IV .Q24H [facility] Rx#: [id number] Insulin Regular 100 unit 54.238 3.434 In Sodium Chloride 0.9% 100 ml @ Per Protocol IV .Q0M [facility] Rx#:[id number] Norepinephrine 32 mg In 295.906 417.596 Sodium Chloride 0.9% 218 ml @ 0.84 MCG/KG/MIN 34. 02 mls/hr IV .Q7H21M [facility] Rx#:[id number] propofoL 1,000 mg In 100.000 154.872 Empty Bag 1 bag @ 5 MCG/ KG/MIN 2.592 mls/hr IV . Q24H [facility] Rx#:[id number] Tube Feeding 515 660 110 Lipid 75 Dextrose 5% in Water 1, 75 000 ml @ 75 mls/hr IV . [id number] [facility] with Sodium Bicarb (1 Meq/ml) 150 ml Rx#:[id number] Other 240 90 30 Output: Urine 1475 1285 195 Other: Voiding Method Indwelling Catheter Indwelling Catheter ABP, PAP, CO, CI - Last Documented Arterial Blood Pressure 98/46 - Labs CBC & Chem 7: 11/18/21 04:40 11/18/21 04:40 Labs: Abnormal Lab Results - Last 24 Hours (Table) 11/17/21 11/17/21 11/17/21 Range/Units 12:17 18:24 19:02 WBC (3.8-10.6) k/uL RBC (3.80-5.40) m/uL Hgb (11.4-16.0) gm/dL Hct (34.0-46.0) % MCHC (31.0-37.0) g/dL RDW (11.5-15.5) % Neutrophils # (1.3-7.7) k/uL Lymphocytes # (1.0-4.8) k/uL ABG pH (7.35-7.45) ABG pCO2 (35-45) mmHg ABG pO2 (83-108) mmHg ABG HCO3 (21-25) mmol/L ABG Total CO2 (19-24) mmol/L Sodium (137-145) mmol/L Chloride (98-107) mmol/L BUN (7-17) mg/dL Creatinine (0.52-1.04) mg/dL Glucose (74-99) mg/dL POC Glucose (mg/dL) 249 H 262 H 218 H (70-110) mg/dL Calcium (8.4-10.2) mg/dL 11/17/21 11/17/21 11/17/21 Range/Units 20:00 21:04 21:59 WBC (3.8-10.6) k/uL RBC (3.80-5.40) m/uL Hgb (11.4-16.0) gm/dL Hct (34.0-46.0) % MCHC (31.0-37.0) g/dL RDW (11.5-15.5) % Neutrophils # (1.3-7.7) k/uL Lymphocytes # (1.0-4.8) k/uL ABG pH (7.35-7.45) ABG pCO2 (35-45) mmHg ABG pO2 (83-108) mmHg ABG HCO3 (21-25) mmol/L ABG Total CO2 (19-24) mmol/L Sodium (137-145) mmol/L Chloride (98-107) mmol/L BUN (7-17) mg/dL Creatinine (0.52-1.04) mg/dL Glucose (74-99) mg/dL POC Glucose (mg/dL) 250 H 195 H 174 H (70-110) mg/dL Calcium (8.4-10.2) mg/dL 11/17/21 11/18/21 11/18/21 Range/Units 22:59 00:10 00:56 WBC (3.8-10.6) k/uL RBC (3.80-5.40) m/uL Hgb (11.4-16.0) gm/dL Hct (34.0-46.0) % MCHC (31.0-37.0) g/dL RDW (11.5-15.5) % Neutrophils # (1.3-7.7) k/uL Lymphocytes # (1.0-4.8) k/uL ABG pH (7.35-7.45) ABG pCO2 (35-45) mmHg ABG pO2 (83-108) mmHg ABG HCO3 (21-25) mmol/L ABG Total CO2 (19-24) mmol/L Sodium (137-145) mmol/L Chloride (98-107) mmol/L BUN (7-17) mg/dL Creatinine (0.52-1.04) mg/dL Glucose (74-99) mg/dL POC Glucose (mg/dL) 133 H 133 H 139 H (70-110) mg/dL Calcium (8.4-10.2) mg/dL 11/18/21 11/18/21 11/18/21 Range/Units 02:05 02:56 03:52 WBC (3.8-10.6) k/uL RBC (3.80-5.40) m/uL Hgb (11.4-16.0) gm/dL Hct (34.0-46.0) % MCHC (31.0-37.0) g/dL RDW (11.5-15.5) % Neutrophils # (1.3-7.7) k/uL Lymphocytes # (1.0-4.8) k/uL ABG pH (7.35-7.45) ABG pCO2 (35-45) mmHg ABG pO2 (83-108) mmHg ABG HCO3 (21-25) mmol/L ABG Total CO2 (19-24) mmol/L Sodium (137-145) mmol/L Chloride (98-107) mmol/L BUN (7-17) mg/dL Creatinine (0.52-1.04) mg/dL Glucose (74-99) mg/dL POC Glucose (mg/dL) 184 H 198 H 182 H (70-110) mg/dL Calcium (8.4-10.2) mg/dL 11/18/21 11/18/21 11/18/21 Range/Units 04:40 04:40 05:01 WBC 20.2 H (3.8-10.6) k/uL RBC 3.04 L (3.80-5.40) m/uL Hgb 8.2 L D (11.4-16.0) gm/dL Hct 27.6 L (34.0-46.0) % MCHC 29.7 L (31.0-37.0) g/dL RDW 15.6 H (11.5-15.5) % Neutrophils # 18.7 H (1.3-7.7) k/uL Lymphocytes # 0.5 L (1.0-4.8) k/uL ABG pH (7.35-7.45) ABG pCO2 (35-45) mmHg ABG pO2 (83-108) mmHg ABG HCO3 (21-25) mmol/L ABG Total CO2 (19-24) mmol/L Sodium 146 H (137-145) mmol/L Chloride 117 H (98-107) mmol/L BUN 59 H (7-17) mg/dL Creatinine 1.39 H (0.52-1.04) mg/dL Glucose 160 H (74-99) mg/dL POC Glucose (mg/dL) 154 H (70-110) mg/dL Calcium 7.4 L (8.4-10.2) mg/dL 11/18/21 11/18/21 11/18/21 Range/Units 05:53 05:56 07:03 WBC (3.8-10.6) k/uL RBC (3.80-5.40) m/uL Hgb (11.4-16.0) gm/dL Hct (34.0-46.0) % MCHC (31.0-37.0) g/dL RDW (11.5-15.5) % Neutrophils # (1.3-7.7) k/uL Lymphocytes # (1.0-4.8) k/uL ABG pH 7.15 L* (7.35-7.45) ABG pCO2 82 H* (35-45) mmHg ABG pO2 78 L (83-108) mmHg ABG HCO3 28 H (21-25) mmol/L ABG Total CO2 31 H (19-24) mmol/L Sodium (137-145) mmol/L Chloride (98-107) mmol/L BUN (7-17) mg/dL Creatinine (0.52-1.04) mg/dL Glucose (74-99) mg/dL POC Glucose (mg/dL) 147 H 147 H (70-110) mg/dL Calcium (8.4-10.2) mg/dL 11/18/21 Range/Units 08:10 WBC (3.8-10.6) k/uL RBC (3.80-5.40) m/uL Hgb (11.4-16.0) gm/dL Hct (34.0-46.0) % MCHC (31.0-37.0) g/dL RDW (11.5-15.5) % Neutrophils # (1.3-7.7) k/uL Lymphocytes # (1.0-4.8) k/uL ABG pH (7.35-7.45) ABG pCO2 (35-45) mmHg ABG pO2 (83-108) mmHg ABG HCO3 (21-25) mmol/L ABG Total CO2 (19-24) mmol/L Sodium (137-145) mmol/L Chloride (98-107) mmol/L BUN (7-17) mg/dL Creatinine (0.52-1.04) mg/dL Glucose (74-99) mg/dL POC Glucose (mg/dL) 142 H (70-110) mg/dL Calcium (8.4-10.2) mg/dL Microbiology - Last 24 Hours (Table) 11/16/21 14:34 Urine Culture - Final Urine,Voided 11/16/21 12:02 Blood Culture - Preliminary Blood No Growth after 24 hours 11/16/21 12:02 Blood Culture - Preliminary Blood No Growth after 24 hours Assessment and Plan Plan: Assessment: 1. Acute kidney injury secondary to ATN secondary to cardiac arrest/shock. Baseline creatinine near 1. Renal function better today. Nonoliguric. No hydronephrosis noted on kidney ultrasound. 2. Hypernatremia from lack of oral water intake. 3. Acute hypercapnic respiratory failure. 4. Status post cardiac arrest this admission. 5. Recent coronavirus infection. 6. Anemia. No active bleeding. Likely dilutional as patient received almost 4 L normal saline yesterday. Plan: Maintain bicarb drip for now due to underlying respiratory acidosis. Maintain tube feeds. Add free water flushes 200 mL every 6 hours. Wean FiO2 and vasopressors. Avoid nephrotoxins. Continue to monitor renal function and urine output. Cortisol level not low data 11/08/2021. Currently on dexamethasone. Check iron studies.
[2021-11-18] MEDS: cloZAPine 100 MG TAB PO SCH ×3 (09:15→20:38)
[2021-11-18] MEDS: lamoTRIgine 25 MG TAB PO SCH ×2 (09:15→20:39)
[2021-11-18 09:42] LABS: Glucose,Whole Blood 141 mg/dL (70-110)
[2021-11-18 11:55] LABS: Glucose,Whole Blood 151 mg/dL (70-110)
--- NOTE | 2021-11-18 12:51 | P.PN ---
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 Patient's respiratory difficulty got worse, heart bradycardia down leading to cardiac arrest. There were 2 separate times of cardiac arrest, but the total downtime was 10 minutes. Nurse does not know details how much time was between the 2 events. Patient at present appears critically sick. Patient is on propofol 25 g, Nimbex 2 g, Levothroid 75 g, vasopressin. Patient has been made no code. At present patient's examination is limited because of sedation and ALLERGIC agents. Patient is on PEEP of 20. 11/15/2021: Patient was seen for a follow-up. Patient continues to be on BiPAP. Patient appears generalized weak. Continues to be significantly encephalopathic. Please refer to examination below. 11/14/2021: Patient was seen for a follow-up. Patient initially seen by Dr. Breezy Orozco. Please refer to his note for details. Patient is a 50-year-old female who has altered mental status due to hypoxic encephalopathy. Patient is Covid and is on BiPAP. Patient had 2 CT head scan in the past which were negative. Patient continues to be encephalopathic. I spoke to patient's nurse, who mentioned that patient's family has mentioned that he shouldn't has declined in the last 1 year. She sometimes would talk about something, that has nothing to do with the conversation going on. She had periods of incontinence of urine as well. Patient's has to tell her to do personal hygiene, as she has been declining for last 1 year. Per nurse report, she has schizoaffective bipolar disorder. Also has diabetes hypertension and hypothyroidism. At present she is not following commands. Still on BiPAP. Per nursing report, earlier this year, in June 10 admission, she was walking and talking. Objective - Vital Signs Vital signs: Vital Signs Temp 100.1 F H 11/18/21 08:00 Pulse 93 11/18/21 11:00 Resp 32 H 11/18/21 11:00 BP 99/52 11/18/21 08:00 Pulse Ox 93 L 11/18/21 11:00 FiO2 60 11/18/21 11:08 Intake & Output 11/17/21 11/18/21 11/18/21 18:59 06:59 18:59 Intake Total 2348.210 6391.740 3019.018 Output Total 1475 1285 695 Balance 269.409 3394.740 2324.018 Weight 94.4 kg Intake: IV 940 5000 2400 Cefepime 2 gm In Sodium 100 100 25 Chloride 0.9% 100 ml @ 25 mls/hr IVPB Q12HR [facility] Rx #:[id number] Dextrose 5% in Water 1, 450 900 375 000 ml @ 75 mls/hr IV . [id number] [facility] with Sodium Bicarb (1 Meq/ml) 150 ml Rx#:[id number] Sodium Chloride 0.45% 1, 390 000 ml @ 75 mls/hr IV . [id number] [facility] Rx#:[id number] Sodium Chloride 0.9% 1, 4000 2000 000 ml @ 999 mls/hr IV . Q1H1M [facility] Rx#:[id number] Intake, IV Titration 578.210 641.740 264.018 Amount Cisatracurium 200 mg In 182.304 15.034 Sodium Chloride 0.9% 180 ml @ 1 MCG/KG/MIN 5.184 mls/hr IV .Q24H [facility] Rx#: [id number] Insulin Regular 100 unit 54.238 3.434 In Sodium Chloride 0.9% 100 ml @ Per Protocol IV .Q0M [facility] Rx#:[id number] Norepinephrine 32 mg In 295.906 417.596 260.584 Sodium Chloride 0.9% 218 ml @ 0.84 MCG/KG/MIN 34. 02 mls/hr IV .Q7H21M [facility] Rx#:[id number] propofoL 1,000 mg In 100.000 154.872 Empty Bag 1 bag @ 5 MCG/ KG/MIN 2.592 mls/hr IV . Q24H [facility] Rx#:[id number] Tube Feeding 515 660 275 Lipid 75 Dextrose 5% in Water 1, 75 000 ml @ 75 mls/hr IV . [id number] [facility] with Sodium Bicarb (1 Meq/ml) 150 ml Rx#:[id number] Other 240 90 80 Output: Urine 1475 1285 695 Other: Voiding Method Indwelling Catheter Indwelling Catheter ABP, PAP, CO, CI - Last Documented Arterial Blood Pressure 110/48 - Exam Patient is intubated, sedated, on paralytic agent. Exam very limited. Pupils are not clearly reacting. - Labs CBC & Chem 7: 11/18/21 04:40 11/18/21 04:40 Labs: Abnormal Lab Results - Last 24 Hours (Table) 11/17/21 11/17/21 11/17/21 Range/Units 18:24 19:02 20:00 WBC (3.8-10.6) k/uL RBC (3.80-5.40) m/uL Hgb (11.4-16.0) gm/dL Hct (34.0-46.0) % MCHC (31.0-37.0) g/dL RDW (11.5-15.5) % Neutrophils # (1.3-7.7) k/uL Lymphocytes # (1.0-4.8) k/uL ABG pH (7.35-7.45) ABG pCO2 (35-45) mmHg ABG pO2 (83-108) mmHg ABG HCO3 (21-25) mmol/L ABG Total CO2 (19-24) mmol/L Sodium (137-145) mmol/L Chloride (98-107) mmol/L BUN (7-17) mg/dL Creatinine (0.52-1.04) mg/dL Glucose (74-99) mg/dL POC Glucose (mg/dL) 262 H 218 H 250 H (70-110) mg/dL Calcium (8.4-10.2) mg/dL 11/17/21 11/17/21 11/17/21 Range/Units 21:04 21:59 22:59 WBC (3.8-10.6) k/uL RBC (3.80-5.40) m/uL Hgb (11.4-16.0) gm/dL Hct (34.0-46.0) % MCHC (31.0-37.0) g/dL RDW (11.5-15.5) % Neutrophils # (1.3-7.7) k/uL Lymphocytes # (1.0-4.8) k/uL ABG pH (7.35-7.45) ABG pCO2 (35-45) mmHg ABG pO2 (83-108) mmHg ABG HCO3 (21-25) mmol/L ABG Total CO2 (19-24) mmol/L Sodium (137-145) mmol/L Chloride (98-107) mmol/L BUN (7-17) mg/dL Creatinine (0.52-1.04) mg/dL Glucose (74-99) mg/dL POC Glucose (mg/dL) 195 H 174 H 133 H (70-110) mg/dL Calcium (8.4-10.2) mg/dL 11/18/21 11/18/21 11/18/21 Range/Units 00:10 00:56 02:05 WBC (3.8-10.6) k/uL RBC (3.80-5.40) m/uL Hgb (11.4-16.0) gm/dL Hct (34.0-46.0) % MCHC (31.0-37.0) g/dL RDW (11.5-15.5) % Neutrophils # (1.3-7.7) k/uL Lymphocytes # (1.0-4.8) k/uL ABG pH (7.35-7.45) ABG pCO2 (35-45) mmHg ABG pO2 (83-108) mmHg ABG HCO3 (21-25) mmol/L ABG Total CO2 (19-24) mmol/L Sodium (137-145) mmol/L Chloride (98-107) mmol/L BUN (7-17) mg/dL Creatinine (0.52-1.04) mg/dL Glucose (74-99) mg/dL POC Glucose (mg/dL) 133 H 139 H 184 H (70-110) mg/dL Calcium (8.4-10.2) mg/dL 11/18/21 11/18/21 11/18/21 Range/Units 02:56 03:52 04:40 WBC 20.2 H (3.8-10.6) k/uL RBC 3.04 L (3.80-5.40) m/uL Hgb 8.2 L D (11.4-16.0) gm/dL Hct 27.6 L (34.0-46.0) % MCHC 29.7 L (31.0-37.0) g/dL RDW 15.6 H (11.5-15.5) % Neutrophils # 18.7 H (1.3-7.7) k/uL Lymphocytes # 0.5 L (1.0-4.8) k/uL ABG pH (7.35-7.45) ABG pCO2 (35-45) mmHg ABG pO2 (83-108) mmHg ABG HCO3 (21-25) mmol/L ABG Total CO2 (19-24) mmol/L Sodium (137-145) mmol/L Chloride (98-107) mmol/L BUN (7-17) mg/dL Creatinine (0.52-1.04) mg/dL Glucose (74-99) mg/dL POC Glucose (mg/dL) 198 H 182 H (70-110) mg/dL Calcium (8.4-10.2) mg/dL 11/18/21 11/18/21 11/18/21 Range/Units 04:40 05:01 05:53 WBC (3.8-10.6) k/uL RBC (3.80-5.40) m/uL Hgb (11.4-16.0) gm/dL Hct (34.0-46.0) % MCHC (31.0-37.0) g/dL RDW (11.5-15.5) % Neutrophils # (1.3-7.7) k/uL Lymphocytes # (1.0-4.8) k/uL ABG pH 7.15 L* (7.35-7.45) ABG pCO2 82 H* (35-45) mmHg ABG pO2 78 L (83-108) mmHg ABG HCO3 28 H (21-25) mmol/L ABG Total CO2 31 H (19-24) mmol/L Sodium 146 H (137-145) mmol/L Chloride 117 H (98-107) mmol/L BUN 59 H (7-17) mg/dL Creatinine 1.39 H (0.52-1.04) mg/dL Glucose 160 H (74-99) mg/dL POC Glucose (mg/dL) 154 H (70-110) mg/dL Calcium 7.4 L (8.4-10.2) mg/dL 11/18/21 11/18/21 11/18/21 Range/Units 05:56 07:03 08:10 WBC (3.8-10.6) k/uL RBC (3.80-5.40) m/uL Hgb (11.4-16.0) gm/dL Hct (34.0-46.0) % MCHC (31.0-37.0) g/dL RDW (11.5-15.5) % Neutrophils # (1.3-7.7) k/uL Lymphocytes # (1.0-4.8) k/uL ABG pH (7.35-7.45) ABG pCO2 (35-45) mmHg ABG pO2 (83-108) mmHg ABG HCO3 (21-25) mmol/L ABG Total CO2 (19-24) mmol/L Sodium (137-145) mmol/L Chloride (98-107) mmol/L BUN (7-17) mg/dL Creatinine (0.52-1.04) mg/dL Glucose (74-99) mg/dL POC Glucose (mg/dL) 147 H 147 H 142 H (70-110) mg/dL Calcium (8.4-10.2) mg/dL 11/18/21 11/18/21 Range/Units 09:40 11:52 WBC (3.8-10.6) k/uL RBC (3.80-5.40) m/uL Hgb (11.4-16.0) gm/dL Hct (34.0-46.0) % MCHC (31.0-37.0) g/dL RDW (11.5-15.5) % Neutrophils # (1.3-7.7) k/uL Lymphocytes # (1.0-4.8) k/uL ABG pH (7.35-7.45) ABG pCO2 (35-45) mmHg ABG pO2 (83-108) mmHg ABG HCO3 (21-25) mmol/L ABG Total CO2 (19-24) mmol/L Sodium (137-145) mmol/L Chloride (98-107) mmol/L BUN (7-17) mg/dL Creatinine (0.52-1.04) mg/dL Glucose (74-99) mg/dL POC Glucose (mg/dL) 141 H 151 H (70-110) mg/dL Calcium (8.4-10.2) mg/dL Microbiology - Last 24 Hours (Table) 11/16/21 01:00 Sputum Culture - Final Sputum 11/16/21 14:34 Urine Culture - Final Urine,Voided 11/16/21 12:02 Blood Culture - Preliminary Blood No Growth after 24 hours 11/16/21 12:02 Blood Culture - Preliminary Blood No Growth after 24 hours Assessment and Plan Assessment: Status post cardiac arrest with downtime of 10 minutes. Rule out anoxic encephalopathy superimposed on pre-existing metabolic encephalopathy Encephalopathy seems due to multifactorial: Predominately hypoxic encephalopathy due to COVID-19 pneumonia. Also component of metabolic encephalopathy (hypernatremia, JAYLA). History of seizure and she had a seizure about 6-8 years ago (blank starkarla) while ?reported GTC on 03/15/2021 (but her 2.5 hour EEG and routine EEG was negative for seizure or epileptiform discharges) Acute hypoxemic respiratory failure secondary due to pneumonia Acute hypernatremia--resolved JAYLA--resolved Recent [place] virus infection History of diabetes History of hyperthyroid Schizoaffective disorder Primary history of tobacco use History of heavy alcohol use History of marijuana use Plan: * Stat EEG was performed, which was abnormal due to background slowing of moderate to severe degree. This is suggestive of generalized cerebral dysfu nction, as can be seen with toxic metabolic encephalopathy or due to diffuse structural brain abnormality. Clinical correlation recommended. No epileptiform activity was seen. * Repeat CT head. * Patient is on Eliquis, also on aspirin 81 mg and Lipitor 40 mg daily. * Nephrology team is on board * We'll defer the rest of the medical management to the primary and ICU team * Patient condition is critical. * Patient is NO CODE. * Discussed with nursing staff in detail. * Dr. Breezy Orozco will be available for neurology service from the morning.
[2021-11-18 14:04] LABS: Glucose,Whole Blood 184 mg/dL (70-110)
[2021-11-18] MEDS: INSULIN REGULAR 100 UNIT in SODIUM CHLORIDE 0.9% 100 ML IV SCH (14:04)
[2021-11-18 16:20] LABS: Glucose,Whole Blood 167 mg/dL (70-110)
[2021-11-18 17:56] LABS: Glucose,Whole Blood 163 mg/dL (70-110)
[2021-11-18 19:55] LABS: Glucose,Whole Blood 156 mg/dL (70-110)
[2021-11-18] MEDS: ATORVASTATIN 40 MG TAB PO SCH (20:38)
[2021-11-18 21:56] LABS: Glucose,Whole Blood 169 mg/dL (70-110)
[2021-11-19 00:04] LABS: Glucose,Whole Blood 166 mg/dL (70-110)
[2021-11-19 00:16] LABS: % Iron Saturation 36.08 (12.00-45.00)
[2021-11-19] MEDS: ARTIFICIAL TEARS-HYPROMELLOSE DROPS 15 ML BTL BOTH EYES SCH ×7 (00:39→23:59)
[2021-11-19 02:01] LABS: Glucose,Whole Blood 158 mg/dL (70-110)
--- NOTE | 2021-11-19 02:15 | P.PN ---
Subjective Progress Note Date: 11/18/21 Encephalopathy; multifactorial Acute hypoxemic respiratory failure secondary due to pneumonia Acute hypernatremia--trending down JAYLA 50-year-old female, who is brought in by the [place] emergency services. She apparently resides at [facility] up in that area. She apparently has a history of schizophrenia, as well as a history of recent infection with coronavirus. The patient was brought in because of mental status changes, and also low saturations. Apparently the patient was evaluated there and thought to have pneumonia. The patient was treated with Levaquin here. Currently, she seen in the emergency room, room 11. She is on 15 L high flow oxygen. She's getting saline at 75 mL an hour. I did have the opportunity to speak to the patient's , name Art. He was able to provide some history. The patient is at the assisted as mentioned above, but is unable to prepare food for herself. Her mental status varies hour to hour and day today according to him. The patient herself can give me no history. She sees been here in the emergency department, she's been moaning and groaning. Her chest x-ray shows bilateral patchy infiltrates. A blood gas was done and showed a pO2 of 89, pCO2 35, and pH is 7.332. She apparently has a history of diabetes, hypertension, hyperlipidemia, and hypothyroidism. 11/11/2021 Patient is seen and evaluated in follow-up in the intensive care unit; remains on BiPAP 12/5 and 70% FiO2 to maintain O2 saturations in the 90s. She remains on dexmedetomidine at 1 mcg/kg per hour. D5 W2 125 ML's per hour. She is being nourished with Jevity 1.5 at 40 ML's per hour with a goal of 50 ML's per hour. She remains on antibiotics in the form of Levaquin. She is anticoagulated with Eliquis. Continued on Decadron. Asked x-ray shows increasing infiltrate in the right midlung zone and right lower lobe. Also developing infiltrate in the left perihilar region. Blood cultures reveal no growth. Sodium 144. Potassium 3.8. Bicarb 29. Creatinine 1.02. Glucose 266. AST 24. ALT 18. 11/12/2021 Patient is seen and evaluated in room at bedside; remains in ICU; per nursing staff patient is slightly more awake compared to yesterday Vital signs reveal temperature of 97.7, pulse 118, respiration 35, blood pressure of 91/59 with O2 saturation 92% with an FiO2 of 55% Labs are reviewed which revealed sodium of 152, potassium 2.9, BUN/creatinine of 304/1.07 with blood glucose of 186 Neurology on board for encephalopathy; likely related to COVID-19 pneumonia with metabolic encephalopathy given hypernatremia and acute renal injury; less likely meningoencephalitis; EEG is ordered and pending; patient remains on thiamine 100 mg daily; we will continue to have neuro checks every 3 hours Nephron board for acute renal injury secondary to septic syndrome; creatinine is improved; hypernatremia is deemed secondary to loss of free water due to high blood sugars; increase water intake via PEG tube is recommended cc per hour; labs will be redrawn later in the day; further recommendations pending 11/13/2021 Patient is seen in follow-up continues to be in the ICU with multiple medical consultations following. Patient is maintained on BiPAP with pulmonary scout leaser following closely. FiO2 is currently at 65% which is currently increased and PEEP remains 5. Patient also continues with albuterol treatments along with IV dexamethasone. Patient also with hypernatremia currently maintained on D5 and water with improvement in sodium and currently 145 and will continue. Blood sugars have been elevated and patient is maintained on every 6 sliding scale and long-acting and recommend continuing with Accu-Cheks before meals and at bedtime and as needed and will increase long-acting and continue to monitor closely. Chest x-ray this morning showing air in the soft tissues of the next as well as the mediastinum compatible with pneumomediastinum with bilateral infiltrates that are unchanged. Patient is afebrile currently. Patient also continues on IV Levaquin and will continue. 11/14/2021 Patient continues to be in the ICU with multiple medical consultations following including pulmonary. Patient is maintained on BiPAP and continues on Precedex with continued attempts at weaning. FiO2 is now 55% and settings of 12/5. Chest x-ray today shows interval reduction in the degree of the pneumomediastinum with bilateral patchy infiltrates that are stable. WBC is trending down and patient is maintained on Levaquin and will continue. Patient also continues on IV dexamethasone along with half-normal saline and will continue. Patient is anticoagulated with Eliquis and will continue. Patient is tolerating tube feeds well and no reported bowel movements and patient is receiving a laxative today. Patient is afebrile. 11/15/2021 Patient seen today and continues to be in critical condition in the ICU and remains Bipap dependent and also on precedex. Per nursing staff, oxygen saturations have been difficult to maintain adequately and FI02 has been increased to 80% with 12/6 settings. Chest xray shows pneumomediastinum and continued persistent patchy infiltrates that are stable. Sub-q emphysema noted on exam. Patient is afebrile and continued on tube feedings. Overall prognosis remains extremely guarded. 11/16/2021 Patient is seen this morning and respiratory status significantly declined and patient required mechanical intubation and is currently maintained on mechanical vent with an FiO2 of 100% and PEEP is 22 and continues to have poor oxygen saturations. Lengthy discussion was had with the family and are now agreeable to no code and would like to continue current measures. Patient per nursing staff had to CODE BLUE events losing pulse early this morning and is in critical condition. Patient is maintained on Cleviprex, Levophed, propofol and requiring pressor support as well. Patient also continues with IV antibiotics. Chest x- ray today shows no definite pneumothorax although a small right apical pneumothorax may be obscured by overlying structures with stable bilateral patchy airspace disease greater on the right. WBC is 39.2, hemoglobin is 11.7, and kidney functions worsening. Blood sugars are elevated and will increase and continue with sliding scale and long-acting. Overall Prognosis is extremely poor and guarded. 11/17/2021 She continues to be in the ICU under critical condition maintained on mechanical ventilation 100% FiO2 and oxygen saturations have slightly improved. Patient also is being started on bicarb drip, and maintained on Levophed, propofol, and IV antibiotics in the form of cefepime. Chest x-ray shows continuous subcutaneous emphysema with persistent bilateral patchy infiltrates and appears possibly some improvement in aeration. Kidney functions worsening and patient being started on bicarb drip and creatinine is 1.82 with a potassium of 5.5 today. White blood count elevated although trending down and is currently 24.9. Cultures are pending. Codes status has been addressed and change to no code per family members. Patient is currently having some low-grade temps of 99.2 and increased respirations and blood pressures are marginal. 11/18/2021 Patient continued to be in the ICU on mechanical ventilation on sedation and FI02 titrated down to 80% and peep is 22. Continued on pressor support and bicarb drip and having some improvement in renal function. Patient WBC trending down and remains on cefepime. Patient also continues on IV steroids and now insulin drip as well. Afebrile. Extremely guarded prognosis. Review of systems: Unable to obtain as patient is now on mechanical ventilation and intubated and sedated Active Medications Apixaban (Apixaban 5 Mg Tab) 5 mg PO BID [facility]; Protocol Last Admin: 11/18/21 20:38 Dose: 5 mg Artificial Tears (Artificial Tears-Hypromellose Drops 15 Ml Btl) 1 drops BOTH EYES Q4HR [facility] Last Admin: 11/19/21 00:39 Dose: 1 drops Aspirin (Aspirin 81 Mg) 81 mg PO DAILY@0900 [facility] Last Admin: 11/18/21 08:22 Dose: 81 mg Atorvastatin Calcium (Atorvastatin 40 Mg Tab) 40 mg PO HS@2100 [facility] Last Admin: 11/18/21 20:38 Dose: 40 mg Chlorhexidine Gluconate (Chlorhexidine Gluconate 15 Ml Cup) 15 ml MUCOUS MEM BID [facility] Last Admin: 11/18/21 20:38 Dose: 15 ml Clozapine (Clozapine 100 Mg Tab) 200 mg PO TID@0900,1300,2100 [facility] Stop: 11/22/21 23:00 Last Admin: 11/18/21 20:38 Dose: 200 mg Dexamethasone Sodium Phosphate (Dexamethasone Sod Phosphate 10 Mg/Ml 1 Ml Vial) 6 mg IVP DAILY [facility] Last Admin: 11/18/21 08:22 Dose: 6 mg Cisatracurium Besylate 200 mg/ (Sodium Chloride) 200 mls @ 5.184 mls/hr IV .Q24H [facility]; Protocol Last Admin: 11/17/21 19:48 Dose: 2 mcg/kg/min, 10.368 mls/hr Propofol 1,000 mg/ IV Solution 100 mls @ 2.592 mls/hr IV .Q24H [facility]; Protocol Last Admin: 11/18/21 18:34 Dose: 25 mcg/kg/min, 12.96 mls/hr Vasopressin 20 unit/ Sodium (Chloride) 51 mls @ 4.59 mls/hr IVPB .Q11H7M [facility] Last Admin: 11/18/21 21:48 Dose: 4.59 mls/hr Cefepime HCl 2 gm/ Sodium (Chloride) 100 mls @ 25 mls/hr IVPB Q12HR [facility]; Pro tocol Last Admin: 11/18/21 20:36 Dose: 25 mls/hr Norepinephrine Bitartrate 32 (mg/ Sodium Chloride) 250 mls @ 34.02 mls/hr IV .Q7H21M [facility]; Protocol Last Titration: 11/19/21 01:17 Dose: 0.52 mcg/kg/min, 21.06 mls/hr Sodium Bicarbonate 150 ml/ (Dextrose/Water) 1,150 mls @ 75 mls/hr IV .[id number] [facility] Last Admin: 11/18/21 17:51 Dose: 75 mls/hr Insulin Human Regular 100 unit (/ Sodium Chloride) 101 mls @ 0 mls/hr IV .Q0M [facility]; Protocol Last Titration: 11/19/21 02:00 Dose: 3 unit/hr, 3.03 mls/hr Lamotrigine (Lamotrigine 25 Mg Tab) 25 mg PO BID@0900,2100 [facility] Last Admin: 11/18/21 20:39 Dose: 25 mg Levothyroxine Sodium (Levothyroxine 100 Mcg Tab) 100 mcg PO DAILY@0600 [facility] Last Admin: 11/18/21 05:45 Dose: 100 mcg Miscellaneous Information (Pneumonia Protocol Utilized 1 Each Misc) 1 each PO ONCE PRN PRN Reason: Per Protocol Miscellaneous Information (Potassium Replacement Protocol 1 Each Misc) 1 each MISCELLANE DAILY PRN; Protocol PRN Reason: Per Protocol Naloxone HCl (Naloxone 0.4 Mg/Ml 1 Ml Vial) 0.2 mg IV Q2M PRN PRN Reason: Opioid Reversal Pantoprazole Sodium (Pantoprazole 40 Mg/10 Ml Vial) 40 mg IV DAILY [facility] Last Admin: 11/18/21 08:23 Dose: 40 mg Thiamine HCl (Thiamine 100 Mg Tab) 100 mg PO DAILY [facility] Last Admin: 11/18/21 08:22 Dose: 100 mg Physical exam: GENERAL EXAM: 50-year-old female patient, intubated on mechanical vent with an FiO2 of 80% and PEEP is 22 EYES: Normal reaction of pupils, equal size. NOSE: Clear with pink turbinates. THROAT: No erythema or exudates. NECK: No masses, no JVD. Subcutaneous emphysema noted of the neck and chest CHEST: No chest wall deformity. LUNGS: Diminished breath sounds bilaterally with some coarse rhonchi and crackles at the bases CVS: S1 and S2 muffled ABDOMEN: No hepatosplenomegaly, obese, normal bowel sounds, no guarding or rigidity. SKIN: No rashes Assessment: Encephalopathy, multifactorial: Predominately hypoxic encephalopathy due to COVID-19 pneumonia. Also component of metabolic encephalopathy (hypernatremia, JAYLA) History of seizure Acute hypoxemic respiratory failure secondary to pneumonia now requiring mechanical ventilation Acute hypernatremia JAYLA Recent COVID-19 infection Hypertension History of diabetes History of hypothyroidism Schizoaffective disorder Primary history of tobacco use History of heavy alcohol use History of marijuana use GI prophylaxis DVT prophylaxis No code Plan: Recommend to continue with close monitoring in the ICU and maintained on mechanical ventilation at 80% and oxygen saturations improved and FI02 is being titrated down Patient is also continued on propofol and also pressor support. Blood sugars elevated recommending sliding scale and Accu-Cheks and insulin drip Recommend to continue tube feedings Patient is continued on IV cefepime Multiple medical consultations following and will continue to monitor closely. Recommend repeat labs in a.m. Due to multiple complex medical issues, overall prognosis is extremely poor and guarded. CODE STATUS was addressed and changed to no code The impression and plan of care has been dictated by Sumi Baldwin, Nurse Practitioner as directed. Dr. Pan MD I have performed a history and examination and MDM of this patient, discussed the same with the dictator, and agree with the dictator's assessment and plan as written ,documented as a scribe. Based on total visit time, I have performed more than 50% of the visit. Objective - Vital Signs Vital signs: Vital Signs Temp 100.1 F H 11/18/21 08:00 Pulse 92 11/18/21 10:00 Resp 32 H 11/18/21 10:00 BP 99/52 11/18/21 08:00 Pulse Ox 94 L 11/18/21 10:00 FiO2 60 11/18/21 09:00 Intake & Output 11/17/21 11/18/21 11/18/21 18:59 06:59 18:59 Intake Total 2348.210 6391.740 2889.018 Output Total 1475 1285 545 Balance 325.391 8421.740 2344.018 Weight 94.4 kg Intake: IV 940 5000 2325 Cefepime 2 gm In Sodium 100 100 25 Chloride 0.9% 100 ml @ 25 mls/hr IVPB Q12HR [facility]ISSE Rx #:[id number] Dextrose 5% in Water 1, 450 900 300 000 ml @ 75 mls/hr IV . [id number] DENISSE with Sodium Bicarb (1 Meq/ml) 150 ml Rx#:[id number] Sodium Chloride 0.45% 1, 390 000 ml @ 75 mls/hr IV . [id number] DENISSE Rx#:[id number] Sodium Chloride 0.9% 1, 4000 2000 000 ml @ 999 mls/hr IV . Q1H1M ONE Rx#:[id number] Intake, IV Titration 578.210 641.740 264.018 Amount Cisatracurium 200 mg In 182.304 15.034 Sodium Chloride 0.9% 180 ml @ 1 MCG/KG/MIN 5.184 mls/hr IV .Q24H [facility] Rx#: [id number] Insulin Regular 100 unit 54.238 3.434 In Sodium Chloride 0.9% 100 ml @ Per Protocol IV .Q0M DENISSE Rx#:[id number] Norepinephrine 32 mg In 295.906 417.596 260.584 Sodium Chloride 0.9% 218 ml @ 0.84 MCG/KG/MIN 34. 02 mls/hr IV .Q7H21M [facility] Rx#:[id number] propofoL 1,000 mg In 100.000 154.872 Empty Bag 1 bag @ 5 MCG/ KG/MIN 2.592 mls/hr IV . Q24H [facility] Rx#:[id number] Tube Feeding 515 660 220 Lipid 75 Dextrose 5% in Water 1, 75 000 ml @ 75 mls/hr IV . [id number] DENISSE with Sodium Bicarb (1 Meq/ml) 150 ml Rx#:[id number] Other 240 90 80 Output: Urine 1475 1285 545 Other: Voiding Method Indwelling Catheter Indwelling Catheter ABP, PAP, CO, CI - Last Documented Arterial Blood Pressure 93/39 - Labs CBC & Chem 7: 11/18/21 04:40 11/18/21 04:40 Labs: Abnormal Lab Results - Last 24 Hours (Table) 11/17/21 11/17/21 11/17/21 Range/Units 12:17 18:24 19:02 WBC (3.8-10.6) k/uL RBC (3.80-5.40) m/uL Hgb (11.4-16.0) gm/dL Hct (34.0-46.0) % MCHC (31.0-37.0) g/dL RDW (11.5-15.5) % Neutrophils # (1.3-7.7) k/uL Lymphocytes # (1.0-4.8) k/uL ABG pH (7.35-7.45) ABG pCO2 (35-45) mmHg ABG pO2 (83-108) mmHg ABG HCO3 (21-25) mmol/L ABG Total CO2 (19-24) mmol/L Sodium (137-145) mmol/L Chloride (98-107) mmol/L BUN (7-17) mg/dL Creatinine (0.52-1.04) mg/dL Glucose (74-99) mg/dL POC Glucose (mg/dL) 249 H 262 H 218 H (70-110) mg/dL Calcium (8.4-10.2) mg/dL 11/17/21 11/17/21 11/17/21 Range/Units 20:00 21:04 21:59 WBC (3.8-10.6) k/uL RBC (3.80-5.40) m/uL Hgb (11.4-16.0) gm/dL Hct (34.0-46.0) % MCHC (31.0-37.0) g/dL RDW (11.5-15.5) % Neutrophils # (1.3-7.7) k/uL Lymphocytes # (1.0-4.8) k/uL ABG pH (7.35-7.45) ABG pCO2 (35-45) mmHg ABG pO2 (83-108) mmHg ABG HCO3 (21-25) mmol/L ABG Total CO2 (19-24) mmol/L Sodium (137-145) mmol/L Chloride (98-107) mmol/L BUN (7-17) mg/dL Creatinine (0.52-1.04) mg/dL Glucose (74-99) mg/dL POC Glucose (mg/dL) 250 H 195 H 174 H (70-110) mg/dL Calcium (8.4-10.2) mg/dL 11/17/21 11/18/21 11/18/21 Range/Units 22:59 00:10 00:56 WBC (3.8-10.6) k/uL RBC (3.80-5.40) m/uL Hgb (11.4-16.0) gm/dL Hct (34.0-46.0) % MCHC (31.0-37.0) g/dL RDW (11.5-15.5) % Neutrophils # (1.3-7.7) k/uL Lymphocytes # (1.0-4.8) k/uL ABG pH (7.35-7.45) ABG pCO2 (35-45) mmHg ABG pO2 (83-108) mmHg ABG HCO3 (21-25) mmol/L ABG Total CO2 (19-24) mmol/L Sodium (137-145) mmol/L Chloride (98-107) mmol/L BUN (7-17) mg/dL Creatinine (0.52-1.04) mg/dL Glucose (74-99) mg/dL POC Glucose (mg/dL) 133 H 133 H 139 H (70-110) mg/dL Calcium (8.4-10.2) mg/dL 11/18/21 11/18/21 11/18/21 Range/Units 02:05 02:56 03:52 WBC (3.8-10.6) k/uL RBC (3.80-5.40) m/uL Hgb (11.4-16.0) gm/dL Hct (34.0-46.0) % MCHC (31.0-37.0) g/dL RDW (11.5-15.5) % Neutrophils # (1.3-7.7) k/uL Lymphocytes # (1.0-4.8) k/uL ABG pH (7.35-7.45) ABG pCO2 (35-45) mmHg ABG pO2 (83-108) mmHg ABG HCO3 (21-25) mmol/L ABG Total CO2 (19-24) mmol/L Sodium (137-145) mmol/L Chloride (98-107) mmol/L BUN (7-17) mg/dL Creatinine (0.52-1.04) mg/dL Glucose (74-99) mg/dL POC Glucose (mg/dL) 184 H 198 H 182 H (70-110) mg/dL Calcium (8.4-10.2) mg/dL 11/18/21 11/18/21 11/18/21 Range/Units 04:40 04:40 05:01 WBC 20.2 H (3.8-10.6) k/uL RBC 3.04 L (3.80-5.40) m/uL Hgb 8.2 L D (11.4-16.0) gm/dL Hct 27.6 L (34.0-46.0) % MCHC 29.7 L (31.0-37.0) g/dL RDW 15.6 H (11.5-15.5) % Neutrophils # 18.7 H (1.3-7.7) k/uL Lymphocytes # 0.5 L (1.0-4.8) k/uL ABG pH (7.35-7.45) ABG pCO2 (35-45) mmHg ABG pO2 (83-108) mmHg ABG HCO3 (21-25) mmol/L ABG Total CO2 (19-24) mmol/L Sodium 146 H (137-145) mmol/L Chloride 117 H (98-107) mmol/L BUN 59 H (7-17) mg/dL Creatinine 1.39 H (0.52-1.04) mg/dL Glucose 160 H (74-99) mg/dL POC Glucose (mg/dL) 154 H (70-110) mg/dL Calcium 7.4 L (8.4-10.2) mg/dL 11/18/21 11/18/21 11/18/21 Range/Units 05:53 05:56 07:03 WBC (3.8-10.6) k/uL RBC (3.80-5.40) m/uL Hgb (11.4-16.0) gm/dL Hct (34.0-46.0) % MCHC (31.0-37.0) g/dL RDW (11.5-15.5) % Neutrophils # (1.3-7.7) k/uL Lymphocytes # (1.0-4.8) k/uL ABG pH 7.15 L* (7.35-7.45) ABG pCO2 82 H* (35-45) mmHg ABG pO2 78 L (83-108) mmHg ABG HCO3 28 H (21-25) mmol/L ABG Total CO2 31 H (19-24) mmol/L Sodium (137-145) mmol/L Chloride (98-107) mmol/L BUN (7-17) mg/dL Creatinine (0.52-1.04) mg/dL Glucose (74-99) mg/dL POC Glucose (mg/dL) 147 H 147 H (70-110) mg/dL Calcium (8.4-10.2) mg/dL 11/18/21 11/18/21 Range/Units 08:10 09:40 WBC (3.8-10.6) k/uL RBC (3.80-5.40) m/uL Hgb (11.4-16.0) gm/dL Hct (34.0-46.0) % MCHC (31.0-37.0) g/dL RDW (11.5-15.5) % Neutrophils # (1.3-7.7) k/uL Lymphocytes # (1.0-4.8) k/uL ABG pH (7.35-7.45) ABG pCO2 (35-45) mmHg ABG pO2 (83-108) mmHg ABG HCO3 (21-25) mmol/L ABG Total CO2 (19-24) mmol/L Sodium (137-145) mmol/L Chloride (98-107) mmol/L BUN (7-17) mg/dL Creatinine (0.52-1.04) mg/dL Glucose (74-99) mg/dL POC Glucose (mg/dL) 142 H 141 H (70-110) mg/dL Calcium (8.4-10.2) mg/dL Microbiology - Last 24 Hours (Table) 11/16/21 14:34 Urine Culture - Final Urine,Voided 11/16/21 12:02 Blood Culture - Preliminary Blood No Growth after 24 hours 11/16/21 12:02 Blood Culture - Preliminary Blood No Growth after 24 hours
[2021-11-19 03:58] LABS: Glucose,Whole Blood 176 mg/dL (70-110)
[2021-11-19 04:15] LABS: Basophils # (A) 0.1 k/uL (0-0.2); Basophils % (A) 0 %; Eosinophils % (A) 0 %; HCT 22.6 % (34.0-46.0); Hypochromasia Marked; Lymphocytes # (A) 0.6 k/uL (1.0-4.8); Lymphocytes % (A) 4 %; MCH 26.7 pg (25.0-35.0); MCHC 30.5 g/dL (31.0-37.0); MCV 87.6 fL (80.0-100.0); Mean Platelet Volume 8.5; Monocytes # (A) 0.6 k/uL (0-1.0); Monocytes % (A) 4 %; Neutrophils # (A) 14.3 k/uL (1.3-7.7); Neutrophils % (A) 91 %; Platelet Count 204 k/uL (150-450); RBC 2.58 m/uL (3.80-5.40); WBC 15.7 k/uL (3.8-10.6)
[2021-11-19 04:28] LABS: HGB 6.9 gm/dL (11.4-16.0)
[2021-11-19 04:31] LABS: Calcium 7.9 mg/dL (8.4-10.2); Potassium 3.6 mmol/L (3.5-5.1)
[2021-11-19] MEDS ORDERED: POTASSIUM BICARBONATE/CIT AC 20 MEQ TABLET.EFF NG-TUBE SCH (05:00)
[2021-11-19] MEDS: LEVOTHYROXINE 100 MCG TAB PO SCH (05:08)
[2021-11-19] MEDS: NOREPINEPHRINE 32 MG in SODIUM CHLORIDE 0.9% 218 ML IV SCH (05:33)
[2021-11-19] MEDS: CISATRACURIUM 200 MG in SODIUM CHLORIDE 0.9% 180 ML IV SCH (05:35)
[2021-11-19 06:03] LABS: ABG Base Excess 4.5 mmol/L; ABG HCO3 32 mmol/L (21-25); ABG Oxygen Saturation 94.3 % (94-97); ABG PH 7.26 (7.35-7.45); ABG PO2 67 mmHg (83-108); ABG TCO2 34 mmol/L (19-24); Allen Test Performed? Yes
[2021-11-19 06:05] LABS: ABG PCO2 71 mmHg (35-45)
[2021-11-19 06:17] LABS: Glucose,Whole Blood 161 mg/dL (70-110)
[2021-11-19 06:24] LABS: Basophils # (A) 0.1 k/uL (0-0.2); Basophils % (A) 1 %; Eosinophils % (A) 0 %; HCT 22.4 % (34.0-46.0); Hypochromasia Marked; Lymphocytes # (A) 0.7 k/uL (1.0-4.8); Lymphocytes % (A) 5 %; MCH 26.4 pg (25.0-35.0); MCHC 30.1 g/dL (31.0-37.0); MCV 87.8 fL (80.0-100.0); Mean Platelet Volume 8.7; Monocytes # (A) 0.7 k/uL (0-1.0); Monocytes % (A) 4 %; Neutrophils # (A) 14.7 k/uL (1.3-7.7); Neutrophils % (A) 90 %; Platelet Count 206 k/uL (150-450); RBC 2.55 m/uL (3.80-5.40); WBC 16.3 k/uL (3.8-10.6)
[2021-11-19 06:50] LABS: HGB 6.7 gm/dL (11.4-16.0)
--- NOTE | 2021-11-19 07:09 | XR ---
EXAMINATION TYPE: XR chest 1V portable DATE OF EXAM: 11/19/2021 5:43 AM COMPARISON: Chest radiograph from one day prior. TECHNIQUE: XR chest 1V portable Portable AP radiograph of the chest.. CLINICAL INDICATION:Female, 50 years old with history of Tube placement; FINDINGS: Lungs/Pleura: Similar multifocal airspace opacities. No evidence of pneumothorax or pleural effusion. Pulmonary vascularity: Unremarkable. Heart/mediastinum: Cardiomediastinal silhouette is unremarkable. Musculoskeletal: No acute osseous pathology. Other findings: Subcutaneous emphysema scattered throughout the visualized thorax is not significantl y changed. Lines/Tubes: Endotracheal tube with distal tip 4.6 cm above the funmilayo Nasogastric tube with its distal tip and side-port projecting under the diaphragm. Left internal jugular central venous catheter with distal tip at the cavoatrial junction. IMPRESSION: 1. Similar multifocal airspace opacities. 2. Stable support lines and tubes.
[2021-11-19 08:20] LABS: Glucose,Whole Blood 141 mg/dL (70-110)
--- NOTE | 2021-11-19 09:04 | P.PN ---
Subjective Patient is seen in follow-up for acute kidney injury. Patient has a cardiac arrest this admission. She is currently intubated. She is maintained on Levophed and vasopressin. Renal function better today. Receiving tube feeds. On bicarb drip as well. Sodium level 147. Vital signs are stable. General: Resting in bed. On vasopressor support. HEENT: Intubated. LUNGS: Breath sounds decreased. HEART: Tachycardic. ABDOMEN: Soft, no distention. EXTREMITITES: No edema. Objective - Vital Signs Vital signs: Vital Signs Temp 99.2 F 11/19/21 08:53 Pulse 103 H 11/19/21 08:53 Resp 32 H 11/19/21 08:53 BP 101/46 11/19/21 08:53 Pulse Ox 91 L 11/19/21 08:13 FiO2 50 11/19/21 08:00 Intake & Output 11/18/21 11/19/21 11/19/21 18:59 06:59 18:59 Intake Total 5054.934 2572.454 315.853 Output Total 1770 1565 175 Balance 3284.934 1007.454 140.853 Weight 105.7 kg Intake: IV 3000 1000 160 Cefepime 2 gm In Sodium 100 100 Chloride 0.9% 100 ml @ 25 mls/hr IVPB Q12HR [facility] Rx #:[id number] Dextrose 5% in Water 1, 900 900 150 000 ml @ 75 mls/hr IV . [id number] [facility] with Sodium Bicarb (1 Meq/ml) 150 ml Rx#:[id number] Sodium Chloride 0.9 10 Sodium Chloride 0.9% 1, 2000 000 ml @ 999 mls/hr IV . Q1H1M ONE Rx#:[id number] Intake, IV Titration 964.934 367.454 45.853 Amount Cisatracurium 200 mg In 200 Sodium Chloride 0.9% 180 ml @ 1 MCG/KG/MIN 5.184 mls/hr IV .Q24H [facility] Rx#: [id number] Insulin Regular 100 unit 36.158 52.471 7.945 In Sodium Chloride 0.9% 100 ml @ Per Protocol IV .Q0M [facility] Rx#:[id number] Norepinephrine 32 mg In 555.120 314.983 37.908 Sodium Chloride 0.9% 218 ml @ 0.84 MCG/KG/MIN 34. 02 mls/hr IV .Q7H21M [facility] Rx#:[id number] propofoL 1,000 mg In 173.656 Empty Bag 1 bag @ 5 MCG/ KG/MIN 2.592 mls/hr IV . Q24H [facility] Rx#:[id number] Tube Feeding 660 605 110 Blood Product 0 Rc As-1 Unit 0 [id number] Other 430 600 Output: Urine 1770 1565 175 Other: Voiding Method Indwelling Catheter Indwelling Catheter Indwelling Catheter ABP, PAP, CO, CI - Last Documented Arterial Blood Pressure 91/44 - Labs CBC & Chem 7: 11/19/21 06:15 11/19/21 03:56 Labs: Abnormal Lab Results - Last 24 Hours (Table) 11/18/21 11/18/21 11/18/21 Range/Units 04:40 09:40 11:52 WBC (3.8-10.6) k/uL RBC (3.80-5.40) m/uL Hgb (11.4-16.0) gm/dL Hct (34.0-46.0) % MCHC (31.0-37.0) g/dL RDW (11.5-15.5) % Neutrophils # (1.3-7.7) k/uL Lymphocytes # (1.0-4.8) k/uL ABG pH (7.35-7.45) ABG pCO2 (35-45) mmHg ABG pO2 (83-108) mmHg ABG HCO3 (21-25) mmol/L ABG Total CO2 (19-24) mmol/L Sodium (137-145) mmol/L Chloride (98-107) mmol/L Carbon Dioxide (22-30) mmol/L BUN (7-17) mg/dL Creatinine (0.52-1.04) mg/dL Glucose (74-99) mg/dL POC Glucose (mg/dL) 141 H 151 H (70-110) mg/dL Calcium (8.4-10.2) mg/dL TIBC 193 L (228-460) ug/dL Transferrin 138.0 L (204.0-354.0) mg/dL Crossmatch 11/18/21 11/18/21 11/18/21 Range/Units 14:02 16:18 17:54 WBC (3.8-10.6) k/uL RBC (3.80-5.40) m/uL Hgb (11.4-16.0) gm/dL Hct (34.0-46.0) % MCHC (31.0-37.0) g/dL RDW (11.5-15.5) % Neutrophils # (1.3-7.7) k/uL Lymphocytes # (1.0-4.8) k/uL ABG pH (7.35-7.45) ABG pCO2 (35-45) mmHg ABG pO2 (83-108) mmHg ABG HCO3 (21-25) mmol/L ABG Total CO2 (19-24) mmol/L Sodium (137-145) mmol/L Chloride (98-107) mmol/L Carbon Dioxide (22-30) mmol/L BUN (7-17) mg/dL Creatinine (0.52-1.04) mg/dL Glucose (74-99) mg/dL POC Glucose (mg/dL) 184 H 167 H 163 H (70-110) mg/dL Calcium (8.4-10.2) mg/dL TIBC (228-460) ug/dL Transferrin (204.0-354.0) mg/dL Crossmatch 11/18/21 11/18/21 11/19/21 Range/Units 19:54 21:55 00:02 WBC (3.8-10.6) k/uL RBC (3.80-5.40) m/uL Hgb (11.4-16.0) gm/dL Hct (34.0-46.0) % MCHC (31.0-37.0) g/dL RDW (11.5-15.5) % Neutrophils # (1.3-7.7) k/uL Lymphocytes # (1.0-4.8) k/uL ABG pH (7.35-7.45) ABG pCO2 (35-45) mmHg ABG pO2 (83-108) mmHg ABG HCO3 (21-25) mmol/L ABG Total CO2 (19-24) mmol/L Sodium (137-145) mmol/L Chloride (98-107) mmol/L Carbon Dioxide (22-30) mmol/L BUN (7-17) mg/dL Creatinine (0.52-1.04) mg/dL Glucose (74-99) mg/dL POC Glucose (mg/dL) 156 H 169 H 166 H (70-110) mg/dL Calcium (8.4-10.2) mg/dL TIBC (228-460) ug/dL Transferrin (204.0-354.0) mg/dL Crossmatch 11/19/21 11/19/21 11/19/21 Range/Units 01:59 03:55 03:56 WBC (3.8-10.6) k/uL RBC (3.80-5.40) m/uL Hgb (11.4-16.0) gm/dL Hct (34.0-46.0) % MCHC (31.0-37.0) g/dL RDW (11.5-15.5) % Neutrophils # (1.3-7.7) k/uL Lymphocytes # (1.0-4.8) k/uL ABG pH (7.35-7.45) ABG pCO2 (35-45) mmHg ABG pO2 (83-108) mmHg ABG HCO3 (21-25) mmol/L ABG Total CO2 (19-24) mmol/L Sodium 147 H (137-145) mmol/L Chloride 114 H (98-107) mmol/L Carbon Dioxide 31 H (22-30) mmol/L BUN 55 H (7-17) mg/dL Creatinine 1.16 H (0.52-1.04) mg/dL Glucose 168 H (74-99) mg/dL POC Glucose (mg/dL) 158 H 176 H (70-110) mg/dL Calcium 7.9 L (8.4-10.2) mg/dL TIBC (228-460) ug/dL Transferrin (204.0-354.0) mg/dL Crossmatch 11/19/21 11/19/21 11/19/21 Range/Units 03:56 05:54 06:12 WBC 15.7 H (3.8-10.6) k/uL RBC 2.58 L (3.80-5.40) m/uL Hgb 6.9 L* (11.4-16.0) gm/dL Hct 22.6 L (34.0-46.0) % MCHC 30.5 L (31.0-37.0) g/dL RDW 16.0 H (11.5-15.5) % Neutrophils # 14.3 H (1.3-7.7) k/uL Lymphocytes # 0.6 L (1.0-4.8) k/uL ABG pH 7.26 L (7.35-7.45) ABG pCO2 71 H* (35-45) mmHg ABG pO2 67 L (83-108) mmHg ABG HCO3 32 H (21-25) mmol/L ABG Total CO2 34 H (19-24) mmol/L Sodium (137-145) mmol/L Chloride (98-107) mmol/L Carbon Dioxide (22-30) mmol/L BUN (7-17) mg/dL Creatinine (0.52-1.04) mg/dL Glucose (74-99) mg/dL POC Glucose (mg/dL) 161 H (70-110) mg/dL Calcium (8.4-10.2) mg/dL TIBC (228-460) ug/dL Transferrin (204.0-354.0) mg/dL Crossmatch 11/19/21 11/19/21 11/19/21 Range/Units 06:15 06:58 08:19 WBC 16.3 H (3.8-10.6) k/uL RBC 2.55 L (3.80-5.40) m/uL Hgb 6.7 L* (11.4-16.0) gm/dL Hct 22.4 L (34.0-46.0) % MCHC 30.1 L (31.0-37.0) g/dL RDW 16.0 H (11.5-15.5) % Neutrophils # 14.7 H (1.3-7.7) k/uL Lymphocytes # 0.7 L (1.0-4.8) k/uL ABG pH (7.35-7.45) ABG pCO2 (35-45) mmHg ABG pO2 (83-108) mmHg ABG HCO3 (21-25) mmol/L ABG Total CO2 (19-24) mmol/L Sodium (137-145) mmol/L Chloride (98-107) mmol/L Carbon Dioxide (22-30) mmol/L BUN (7-17) mg/dL Creatinine (0.52-1.04) mg/dL Glucose (74-99) mg/dL POC Glucose (mg/dL) 141 H (70-110) mg/dL Calcium (8.4-10.2) mg/dL TIBC (228-460) ug/dL Transferrin (204.0-354.0) mg/dL Crossmatch See Detail Microbiology - Last 24 Hours (Table) 11/16/21 12:02 Blood Culture - Preliminary Blood No Growth after 48 hours 11/16/21 12:02 Blood Culture - Preliminary Blood No Growth after 48 hours 11/16/21 01:00 Gram Stain - Final Sputum Sputum Culture - Final Assessment and Plan Plan: Assessment: 1. Acute kidney injury secondary to ATN secondary to cardiac arrest/shock. Baseline creatinine near 1. Renal function better today. Nonoliguric. No hydronephrosis noted on kidney ultrasound. 2. Hypernatremia from lack of oral water intake. 3. Acute hypercapnic respiratory failure. Improved. 4. Status post cardiac arrest this admission. 5. Recent coronavirus infection. 6. Acute blood loss anemia. No active bleeding. Receiving 2 units of blood today. Iron replete. 7. Hypokalemia from poor intake and intrasellar shifting from IV bicarb. Plan: Consider changing bicarb drip to normal saline. ABGs improved. Defer to baler. Maintain tube feeds. Increase free water flushes to 300 mL every 4 hours. Wean FiO2 and vasopressors. Avoid nephrotoxins. Continue to monitor renal function and urine output. Cortisol level not low data 11/08/2021. Currently on dexamethasone. Potassium replaced.
[2021-11-19] MEDS: SODIUM CHLORIDE 0.9% 500 ML 500 ML IV SCH (09:30)
[2021-11-19] MEDS ORDERED: SODIUM CHLORIDE 0.9% 1,000 ML IV SCH (09:30)
--- NOTE | 2021-11-19 09:35 | P.PN ---
Subjective Progress Note Date: 11/19/21 50-year-old female, who is brought in by the [place] emergency services. She apparently resides at [facility] in that area. She apparently has a history of schizophrenia, as well as a history of recent infection with coronavirus. The patient was brought in because of mental status changes, and also low saturations. Apparently the patient was evaluated there and thought to have pneumonia. The patient was treated with Levaquin here. Currently, she seen in the emergency room, room 11. She is on 15 L high flow oxygen. She's getting saline at 75 mL an hour. I did have the opportunity to speak to the patient's , name Art. He was able to provide some history. The patient is at the detention as mentioned above, but is unable to prepare food for herself. Her mental status varies hour to hour and day today according to him. The patient herself can give me no history. She sees been here in the emergency department, she's been moaning and groaning. Her ch est x-ray shows bilateral patchy infiltrates. A blood gas was done and showed a pO2 of 89, pCO2 35, and pH is 7.332. She apparently has a history of diabetes, hypertension, hyperlipidemia, and hypothyroidism. White count 11.5, hemoglobin 12.6, hematocrit 41.3, with a normal platelet count. Sodium 157, potassium 4.3, chlorides 124, CO2 19, anion gap 14, BUN 50, creatinine 2.04. Her lactic acid was 1.2. Pro-calcitonin level is pending. Urine is yellow and cloudy. There is 1+ protein. Trace blood. Small positive leukocyte esterase, 7 RBCs, 9 WBCs, and many bacteria. Chest x-ray shows patchy bilateral infiltrates. Progress note dated 11/08/2021. 50-year-old female seen in the emergency department yesterday. She was brought in from one of the local nursing homes, with complaints of mental status changes, low saturations, and possibly pneumonia. The patient was initially seen in the ER, and then transferred to the intensive care, where she was seen yesterday and today, in room 254. She's currently on BiPAP. BiPAP settings are 12/5 and 65%. He is currently receiving Levaquin. Microbiologic cultures are negative. She did test positive for coronavirus infection. She's getting D5W 100 mL an hour Precedex at 0.5 mcg/kg per hour. White count was 12.7, hemoglobin 11.4, hematocrit 37.2, and platelet count 270,000. Sodium 153, potassium 4.5, chlorides 119, CO2 27, with a BUN and creatinine of 60, and 1.55. Chest x-ray continues to show bilateral airspace disease. Progress note dated 11/09/2021. 50-year-old female seen in consultation 2 days ago. She was brought in from one of the local nursing homes with complaints of mental status changes, possible pneumonia, and low saturations. The patient was seen initially in the emergency department, and was admitted to the intensive care unit. She remains on BiPAP, with settings of 12/5 and 80%. She's getting dexmedetomidine at 0.5 mcg/kg/h. She's getting D5W at 100 mL an hour. Today, we will attempt to get her off of dexmedetomidine, and replace it with Haldol IM. According to the nurse, she had a very uneventful night. White count 14.6, hemoglobin 11.4, hematocrit 38.2, and platelet count 315,000. Sodium 149, potassium 4.2, chlorides 117, CO2 24, BUN 44, and creatinine 1.27. Calcium is normal. Microbiologic studies are thus far negative. No chest x-ray today. CAT scan of the brain did not show anything acute. The patient is seen today 11/10/2021 in follow-up in the intensive care unit. S he remains on BiPAP 12/5 and 80% FiO2. She has required dexmedetomidine at 0.8 mcg/kg/h. Currently she is resting comfortably in bed. Chest x-ray reveals bilateral airspace disease. No evidence of pneumothorax or pleural effusions. Nasogastric tube remains in place. CT scan of the brain reveals an atrophic and chronic small vessel ischemic changes without acute intracranial process. Blood cultures revealed no growth. White count 15.2. Hemoglobin 11.2. Platelets 298. Sodium 150. Potassium 4.0. Chloride 118. BUN 36. Creatinine 1.13. Glucose 172. She remains on Decadron, Levaquin. Anticoagulated with Eliquis. Progress note dated 11/12/2021. The patient is again seen today in room 254. She remains on BiPAP, with settings of 12/5 and 55%. She is on saline at 10 mL an hour, and Precedex at 0.9 mcg/kg per hour. Today, we will discontinue the saline. We'll put her on dextrose at 100 mL an hour. She is receiving Jevity at 50 mL an hour, which is goal. Her oxygenation has improved. Just a couple days ago, she was on 100%. Sodium 152, potassium 3.9, chlorides 119, CO2 27, BUN 34, creatinine 1.07. Chest x-ray shows persistent infiltrate throughout the right midlung and right lower lobe lung zones, as well as in the left lower lobe. 11/13/2021, the patient is being seen for follow-up in the intensive care unit. The patient is a case of severe coronary related pneumonia. She is a detention resident. She presented to us with hypoxic respiratory failure and currently she is on a BiPAP. This morning, the patient is on a BiPAP pressure of 12/5 cm of water with an FiO2 of 55%. She had a follow-up chest x-ray that showed evidence of pneumomediastinum extending to her neck area. No evidence of any pneumothorax. There is diffuse bilateral airspace disease consistent with colloid 19 related pneumonia. The patient is tolerating the BiPAP without any m ajor difficulties pH is able to generate a tidal volume of 600. Her minute ventilation is quite high at this point in time. Her respiratory rate in the low 30s. She is on Precedex which is running at 1.2 mcg/kg per minute. She is a bit confused. She is extremely weak. She has a weak cough. Unable to raise her arms or legs. She follows simple commands intermittently. She has been on Decadron 6 mg IV every 24 hours. Along with BiPAP therapy, the patient has an NG tube in place and she is receiving enteral feeding for nutritional support and the patient is currently on Jevity 1.2 at the rate of 50 mL an hour. In terms of her blood work, the patient's sodium is 145 and the patient received D5 water at the rate of 30 mL an hour. Sodium level is normalized and is down to 145. BUN is at 40 with a creatinine of 1.08. Glucose is at 211. Calcium level is at 9.3. The patient otherwise is on Levemir insulin 20 units daily along with NovoLog sliding scale coverage. She has been covered empirically with IV antibiotics and the patient is receiving levofloxacin 750 mg every 24 hours. Her pro-calcitonin level at time of admission was 1.1. Inflammatory markers are not available. 11/14/2021, the patient is very much encephalopathic and lethargic. She is apparent on Precedex. While off the medication, the patient gets agitated and thrashes around and she becomes asynchronous with a BiPAP machine. Otherwise, while on Precedex, the patient is calm and comfortable and synchronous with the BiPAP machine. She is extremely lethargic, extremely weak, quite debilitated at this point in time. She remains BiPAP dependent and the current BiPAP settings of 12/5 with an FiO2 of 55%. The chest x-ray from today shows stable findings. No significant interval change. No worsening of the pneumomediastinum. NG tube is in a good location. The patient is generating tidal volumes of above 500 and her current respiratory rate is around 25 with a minute ventilation of 12.7 L per minute. She did have a bout of aspiration yesterday. This did not affect her oxygenation. The white cell causes 11 with a hemoglobin of 11.5. BUN is at 38 and a creatinine of 1.04 and his sodium level of 142. The patient remains on Decadron 6 mg IV every 24 hours. The patient remains on Levemir insulin 20 units subcu daily along with Novolin 70/30 coverage. The patient on half-normal saline at the rate of 75 mL's an hour. Electrolytes are all stable for now. No other significant events overnight. No seizure activity. The patient remains on Jevity 1.5 at the rate of 50 an hour. She is tolerating her tube feeds well. No abdominal distention. No bowel activity and the patient is going to receive a laxative suppository today. She is afebrile. Awaiting inflammatory markers. We will also repeat full calcitonin level. We also repeat d-dimer's. 11/15/2021, seeing the patient for a follow-up. Neurologically still the same. The patient is not communicating. She is profoundly weak. We'll try to wean off the Precedex yesterday and the patient became quite restless and agitated. Based on that, the patient was kept on Precedex which is currently running at 1.2 mcg/kg per minute. This case the patient quite comfortable and synchronous with the BiPAP machine. The patient remains on a BiPAP at a pressure of 12/5 cm of water with an FiO2 of 55%. And the patient's pulse ox has been fluctuating. Earlier this point she was at 97% and currently she is somewhat between 89-90%. Based on that, blood gases will be obtained to confirm the patient's oxygenation. The chest x-ray findings are essentially unchanged. The patient has some limited subcutaneous emphysema in the neck area. There is diffuse bilateral pulmonary infiltrates consistent with community related pneumonia. The patient's d-dimer is at 2.56. The patient also has a LDH level of 595 and a CRP level is at 3.6. The pro calcitonin level is at 0.1 and the patient remains on Decadron. The patient is also on anticoagulation with Eliquis. The patient's receiving enteral feeding for nutritional support. The patient on Jevity which is running at 50 mL an hour. She did have a Dulcolax suppository yesterday and she hasn't had any massive bowel movement.. Urine output is adequate. The rest of the electrolytes showing a sodium of 142, potassium of 4.3, BUN is at 38 and a creatinine is 1.0. The patient's echoes of 13 with a hemoglobin of 12.5. Most recent blood sugar is at 153. 11/16/2021, seeing the patient for a follow-up. Significant events occurred about the night. Mother the patient became progressively more hypoxic and we were at the point where we were unable to improve her oxygenation with a BiPAP machine. At that point, the round 11:30 PM yesterday, it was decided to go to intubate the patient. Intubation process was done by the [employer]VIEW[employer]. Post intubation, the patient remained hypoxic and I did the necessity ventilator changes. I put that on assist-control at the rate of 32, tidal volume of 375, FiO2 of 100% with a PEEP of 16 which ultimately was brought up to 22 acute ongoing hypoxemia. However, at around 4:22 AM, the patient had a episodes of hypotension followed by cardiac pulmonary arrest. She was in a PEA rhythm. The patient received 3 rounds of CPR with epinephrine. A second arrest occurred at 4:50 AM and this lasted for around a few minutes where one round of epinephrine and CPR was given to her with recovery and return of spontaneous circulation. This morning, the patient is intubated on mechanical ventilator. She is sedated with propofol which is currently running at 20 mcg/kg. The patient is also on Nimbex at 1 mcg/kg per minute. She is adequately sedated and paralyzed. She is on normal saline running at the rate of 75 mL an hour. She is on levo fed running at 0.8 mcg/kg per minute and the patient is also on vasopressin physio logic dose of 0.03. Note that post intubation, the patient developed profound hypotension and she had to be started on pressors also. The chest x-ray from today showing diffuse bilateral pulmonary infiltrates in addition to subcutaneous emphysema in the right neck area and pneumomediastinum along the left cardiac border. ET tube is in a good location. The patient's blood gases from this morning shows a pH of 7.08 with a pCO2 of 85 and a pO2 of 50. Her current pulse ox on 78 who 82%. The patient's peak airway pressures around 36. Static pressure is 24. The patient's white cell count is at 39 with a hemoglobin of 11 and a platelet count of 449. Sodium is at 142 with a potassium level of 5.1. BUN is 45 and a creatinine of 1.08. AST is 296, ALT is 142 and alkaline phosphatase is 66. The patient remains on Levemir insulin in those was brought up to 20 units along with NovoLog 10 units 4 times a day and a sliding scale coverage. The patient remains on Decadron 6 mg IV every 24 hours. I'm going to stop the IV Levaquin and has associated this patient to broader antibiotic coverage with IV cefepime. She is sedated and paralyzed. Hemodynamically unstable. Remains on a mechanical ventilator. Obviously prognosis is poor baseline above-mentioned comorbidities. 11/17/2021, the patient is critically ill, intubated on a mechanical ventilator porous-coated 19 related pneumonia with ARDS. This morning, the patient sedated and paralyzed. Propofol is running at 25 mcg/kg per minute and the patient is also on Nimbex at 2 mics of respiratory kilo gram per minute. She is adequately sedated and paralyzed. She continues to be on a mechanical ventilator with permissive hypercapnia. She is assist-control mode of mechanical ventilation at the rate of 32, tidal volumes at 375 mL with a FiO2 of 100% and a PEEP of 22. Peak airway pressures around 42. Static pressures around 40. The blood gases from today shows a pH of 7.09 with a pCO2 of 85 and pO2 of 92. The chest x-ray showing diffuse breath and pulmonary infiltrates. Subcutaneous emphysema in the right neck area. Diffuse bilateral pulmonary infiltrates are present and ET tube is in good location patient has a left subclavian triple-lumen catheter in place. An arterial line was also established yesterday without any major difficulties. At the same time, the patient remains on Decadron. The patient remains in a shock state with hypotension. She was quite hypotensive postintubation and she remained hypotensive for yesterday and today. Note that she is post cardiac arrest 2. Her cardiac rhythm is sinus. Echocardiogram was done and was showing a poor window an adequate assessment of the LV function was not obtained. Meanwhile, the patient remains on norepinephrine infusion and currently norepinephrine is running at a dose of 0.86 mcg/kg per minute and the patient is also on physiologic dose of vasopressin. IV fluids are in the form of half normal saline at the rate of 75 mL an hour. Her antibiotics was broadened and the patient is currently on IV cefepime and Levaquin was discontinued. Meanwhile, the patient is afebrile. The white cell count is currently down to 25 and the rest of the blood work shows a hemoglobin of 10.7 and a platelet count of 316. Rest of the electrolytes showing acute kidney injury. Creatinine is up to 1.8 on today's evaluation with a BUN of 53 and his sodium level of 142 with a potassium level of 5.5. Blood sugar is 191. Nephrology was aware and the patient was given a dose of Lokalma. The patient is also on vital AF which is running at the rate of 40 mL an hour. Her CODE STATUS is DO NOT RESUSCITATE. Family is agree to that. is being updated regularly on her condition which is essentially critical. 11/18/2021, the patient is being seen for a follow-up. A case of COVID 19 related pneumonia with secondary ARDS and respiratory failure. This morning, the patient is sedated with propofol at 25 mcg/kg per minute and Nimbex is still running at 2 mcg/kg per minute. The patient is still on a mechanical ventilator, and we are still in the process of performing low tidal volume ventilation permissive hypercapnia. The respiratory rate is at 32 with a abdomen was 375. FiO2 is down to 60% and a PEEP is at 22. There is improvement in oxygenation. Currently all flex to 95%. Blood gas showed a pH of 7.15 with a pCO2 of 82 and pO2 of 78 and this was on FiO2 of 50%. Meanwhile, the peak airway pressure today's a 38 with acetic acid pressure of 30. The chest x-ray from today showed no major interval change. ET tube is in a good location. The patient had diffuse bilateral pulmonary infiltrates consistent with pneumonia/AR DS. There is evidence of subcutaneous emphysema which is worse compared to yesterday's chest x-ray. This is seen along the right upper chest area, neck area, left neck area, and left chest area. There is no evidence of pneumothorax. ET tube is in a good location. No significant cardiomegaly. O bviously, this is related to pneumonia and barotrauma caused by the mechanical ventilator. At the same time, the patient was quite acidotic. The patient was profoundly hypotensive. Based on that the patient was given IV bicarbonate started on a bicarb drip which is currently running at the rate of 75 mL an hour. Serum bicarbonate was up to 27. The acidosis is somewhat improved which is essentially a respiratory acidosis. The patient currently is still on pressors. Norepinephrine is running at 1 mcg/kg per minute and the patient is also on vasopressin physiologic dose. She was given a total of 4 L of IV fluids yesterday to augment her blood pressure. The mean arterial pressure currently is above 60. Overall fluid balance is at least 10 L positive over the past 24 hours and the patient's urine output is adequate and the order of 10 mL an hour. Sodium level is at 146. Creatinine is slightly improved compared to yesterday with a BUN of 59 and a creatinine of 1.39. The white cell count is at 20.2 with a hemoglobin of 8.2 and a platelet count of 264. Note that her white cell count is also improving. Cultures including urine cultures and blood cultures of been negative. The patient is empirically covered with IV cefepime. Echocardiogram was performed and was suboptimal due to poor window. The cardiac rhythm remains sinus. The patient remains on enteral feeding for nutritional support. The patient is receiving vitamin 1.2 at the rate of 55 mL an hour. She is a no CODE STATUS 11/19/2021, the patient is being seen for a follow-up. On today's evaluation, the patient remains sedated and paralyzed. The patient has shown some limited improvement in the oxygenation. The chest x-ray still showing diffuse but the pulmonary infiltrates along with pneumomediastinum and subcutaneous emphysema. Nevertheless, there is no evidence of any pneumothorax. On today's evaluation, the patient's ventilator setting includes an assist-control mode at the rate of 32 with a tidal volume of 375 with an FiO2 of 50% and a PEEP of 22. Peak airway pressures 38. Static pressure is 36. The blood gases from today shows a pH of 7.26 with a pCO2 of 71 and a pO2 of 67. This was done and FiO2 of 50%. The patient clinically has some subcutaneous emphysema involving over the chest and the neck area. No major interval worsening compared to yesterday. She is afebrile. She remains on Decadron. She is also empirically covered with IV cefepime. Meanwhile, the patient's hemodynamics is improved slightly compared to yesterday. The patient's pressor requirements of become less and the patient is currently on norepinephrine running at 0.5 mcg/kg per minute. She is also on vasopressin physiologic dose. Input output balance over the past 24 hours has been +5.9 L and the patient received significant amount of fluid boluses to optimize her blood pressure. At this point in time, we're the process of weaning down the pressors. Nevertheless, there has been a drop in hemoglobin down to 6.7 and this could be essentially dilutional due to aggressive fluid resuscitation. The patient was also on a bicarb infusion. Serum bicarb level is up to 31. The bicarb infusion will be discontinued today. As mentioned, the most recent pH is at 7.26 with a pCO2 of 71 and pO2 of 67. The white count was at 16.3 with a hemoglobin of 6.7 and a platelet count of 206. Patient is leaving enteral feeding for nutritional support. The patient is currently on vital AF at the rate of 55 mL an hour. Bowel movement activity has not been reported yet and we are going to facilitate that with some laxatives. The patient is also receiving free water flushes 300 mL every 4 hours through her NG tube. CODE STATUS is DO NOT RESUSCITATE. Objective - Vital Signs Vital signs: Vital Signs Temp 99.2 F 11/19/21 08:53 Pulse 103 H 11/19/21 09:00 Resp 32 H 11/19/21 09:00 BP 106/58 11/19/21 09:00 Pulse Ox 92 L 11/19/21 09:00 FiO2 50 11/19/21 08:00 Intake & Output 11/18/21 11/19/21 11/19/21 18:59 06:59 18:59 Intake Total 5054.934 2572.454 455.853 Output Total 1770 1565 260 Balance 3284.934 1007.454 195.853 Weight 105.7 kg Intake: IV 3000 1000 245 Cefepime 2 gm In Sodium 100 100 Chloride 0.9% 100 ml @ 25 mls/hr IVPB Q12HR [facility] Rx #:[id number] Dextrose 5% in Water 1, 900 900 225 000 ml @ 75 mls/hr IV . [id number] [facility] with Sodium Bicarb (1 Meq/ml) 150 ml Rx#:[id number] Sodium Chloride 0.9 20 Sodium Chloride 0.9% 1, 2000 000 ml @ 999 mls/hr IV . Q1H1M ONE Rx#:[id number] Intake, IV Titration 964.934 367.454 45.853 Amount Cisatracurium 200 mg In 200 Sodium Chloride 0.9% 180 ml @ 1 MCG/KG/MIN 5.184 mls/hr IV .Q24H [facility] Rx#: [id number] Insulin Regular 100 unit 36.158 52.471 7.945 In Sodium Chloride 0.9% 100 ml @ Per Protocol IV .Q0M [facility] Rx#:[id number] Norepinephrine 32 mg In 555.120 314.983 37.908 Sodium Chloride 0.9% 218 ml @ 0.84 MCG/KG/MIN 34. 02 mls/hr IV .Q7H21M [facility] Rx#:[id number] propofoL 1,000 mg In 173.656 Empty Bag 1 bag @ 5 MCG/ KG/MIN 2.592 mls/hr IV . Q24H [facility] Rx#:[id number] Tube Feeding 660 605 165 Blood Product 0 Rc As-1 Unit 0 [id number] Other 430 600 Output: Urine 1770 1565 260 Other: Voiding Method Indwelling Catheter Indwelling Catheter Indwelling Catheter ABP, PAP, CO, CI - Last Documented Arterial Blood Pressure 103/48 - Exam Gen. appearance the patient is calm and comfortable sedated intubated on a m echanical ventilator. The patient sedated and paralyzed for now. Orotracheal and orogastric tube are both in place. HEENT examination is grossly unremarkable. The patient has evidence of subcutaneous emphysema along the right neck area. Neck supple. Full range of motion. No adenopathy thyromegaly or neck vein distention. Subcutaneous emphysema along the right neck Cardiovascular examination reveals regular rhythm rate. S1-S2 normal. No S3 or S4. No discernible murmur noted. Heart sounds are distant. Lungs reveal scattered bilateral rhonchi and crackles. Breath sounds equal. No wheezes. The breath sounds are overall diminished Abdominal exam revealed normal bowel sounds. The abdomen was soft, non-tender, and without masses, organomegaly, or appreciable enlargement of the abdominal aorta. Extremities are intact. No cyanosis clubbing or edema. Skin is without rash or lesion. The patient has a triple-lumen catheter in her left subclavian and the patient also has a left arterial radial line. Neurologic examination is difficult to assess. As the patient is currently sedated and paralyzed. - Labs CBC & Chem 7: 11/19/21 06:15 11/19/21 03:56 Labs: Abnormal Lab Results - Last 24 Hours (Table) 11/18/21 11/18/21 11/18/21 Range/Units 04:40 09:40 11:52 WBC (3.8-10.6) k/uL RBC (3.80-5.40) m/uL Hgb (11.4-16.0) gm/dL Hct (34.0-46.0) % MCHC (31.0-37.0) g/dL RDW (11.5-15.5) % Neutrophils # (1.3-7.7) k/uL Lymphocytes # (1.0-4.8) k/uL ABG pH (7.35-7.45) ABG pCO2 (35-45) mmHg ABG pO2 (83-108) mmHg ABG HCO3 (21-25) mmol/L ABG Total CO2 (19-24) mmol/L Sodium (137-145) mmol/L Chloride (98-107) mmol/L Carbon Dioxide (22-30) mmol/L BUN (7-17) mg/dL Creatinine (0.52-1.04) mg/dL Glucose (74-99) mg/dL POC Glucose (mg/dL) 141 H 151 H (70-110) mg/dL Calcium (8.4-10.2) mg/dL TIBC 193 L (228-460) ug/dL Transferrin 138.0 L (204.0-354.0) mg/dL Crossmatch 11/18/21 11/18/21 11/18/21 Range/Units 14:02 16:18 17:54 WBC (3.8-10.6) k/uL RBC (3.80-5.40) m/uL Hgb (11.4-16.0) gm/dL Hct (34.0-46.0) % MCHC (31.0-37.0) g/dL RDW (11.5-15.5) % Neutrophils # (1.3-7.7) k/uL Lymphocytes # (1.0-4.8) k/uL ABG pH (7.35-7.45) ABG pCO2 (35-45) mmHg ABG pO2 (83-108) mmHg ABG HCO3 (21-25) mmol/L ABG Total CO2 (19-24) mmol/L Sodium (137-145) mmol/L Chloride (98-107) mmol/L Carbon Dioxide (22-30) mmol/L BUN (7-17) mg/dL Creatinine (0.52-1.04) mg/dL Glucose (74-99) mg/dL POC Glucose (mg/dL) 184 H 167 H 163 H (70-110) mg/dL Calcium (8.4-10.2) mg/dL TIBC (228-460) ug/dL Transferrin (204.0-354.0) mg/dL Crossmatch 11/18/21 11/18/21 11/19/21 Range/Units 19:54 21:55 00:02 WBC (3.8-10.6) k/uL RBC (3.80-5.40) m/uL Hgb (11.4-16.0) gm/dL Hct (34.0-46.0) % MCHC (31.0-37.0) g/dL RDW (11.5-15.5) % Neutrophils # (1.3-7.7) k/uL Lymphocytes # (1.0-4.8) k/uL ABG pH (7.35-7.45) ABG pCO2 (35-45) mmHg ABG pO2 (83-108) mmHg ABG HCO3 (21-25) mmol/L ABG Total CO2 (19-24) mmol/L Sodium (137-145) mmol/L Chloride (98-107) mmol/L Carbon Dioxide (22-30) mmol/L BUN (7-17) mg/dL Creatinine (0.52-1.04) mg/dL Glucose (74-99) mg/dL POC Glucose (mg/dL) 156 H 169 H 166 H (70-110) mg/dL Calcium (8.4-10.2) mg/dL TIBC (228-460) ug/dL Transferrin (204.0-354.0) mg/dL Crossmatch 11/19/21 11/19/21 11/19/21 Range/Units 01:59 03:55 03:56 WBC (3.8-10.6) k/uL RBC (3.80-5.40) m/uL Hgb (11.4-16.0) gm/dL Hct (34.0-46.0) % MCHC (31.0-37.0) g/dL RDW (11.5-15.5) % Neutrophils # (1.3-7.7) k/uL Lymphocytes # (1.0-4.8) k/uL ABG pH (7.35-7.45) ABG pCO2 (35-45) mmHg ABG pO2 (83-108) mmHg ABG HCO3 (21-25) mmol/L ABG Total CO2 (19-24) mmol/L Sodium 147 H (137-145) mmol/L Chloride 114 H (98-107) mmol/L Carbon Dioxide 31 H (22-30) mmol/L BUN 55 H (7-17) mg/dL Creatinine 1.16 H (0.52-1.04) mg/dL Glucose 168 H (74-99) mg/dL POC Glucose (mg/dL) 158 H 176 H (70-110) mg/dL Calcium 7.9 L (8.4-10.2) mg/dL TIBC (228-460) ug/dL Transferrin (204.0-354.0) mg/dL Crossmatch 11/19/21 11/19/21 11/19/21 Range/Units 03:56 05:54 06:12 WBC 15.7 H (3.8-10.6) k/uL RBC 2.58 L (3.80-5.40) m/uL Hgb 6.9 L* (11.4-16.0) gm/dL Hct 22.6 L (34.0-46.0) % MCHC 30.5 L (31.0-37.0) g/dL RDW 16.0 H (11.5-15.5) % Neutrophils # 14.3 H (1.3-7.7) k/uL Lymphocytes # 0.6 L (1.0-4.8) k/uL ABG pH 7.26 L (7.35-7.45) ABG pCO2 71 H* (35-45) mmHg ABG pO2 67 L (83-108) mmHg ABG HCO3 32 H (21-25) mmol/L ABG Total CO2 34 H (19-24) mmol/L Sodium (137-145) mmol/L Chloride (98-107) mmol/L Carbon Dioxide (22-30) mmol/L BUN (7-17) mg/dL Creatinine (0.52-1.04) mg/dL Glucose (74-99) mg/dL POC Glucose (mg/dL) 161 H (70-110) mg/dL Calcium (8.4-10.2) mg/dL TIBC (228-460) ug/dL Transferrin (204.0-354.0) mg/dL Crossmatch 11/19/21 11/19/21 11/19/21 Range/Units 06:15 06:58 08:19 WBC 16.3 H (3.8-10.6) k/uL RBC 2.55 L (3.80-5.40) m/uL Hgb 6.7 L* (11.4-16.0) gm/dL Hct 22.4 L (34.0-46.0) % MCHC 30.1 L (31.0-37.0) g/dL RDW 16.0 H (11.5-15.5) % Neutrophils # 14.7 H (1.3-7.7) k/uL Lymphocytes # 0.7 L (1.0-4.8) k/uL ABG pH (7.35-7.45) ABG pCO2 (35-45) mmHg ABG pO2 (83-108) mmHg ABG HCO3 (21-25) mmol/L ABG Total CO2 (19-24) mmol/L Sodium (137-145) mmol/L Chloride (98-107) mmol/L Carbon Dioxide (22-30) mmol/L BUN (7-17) mg/dL Creatinine (0.52-1.04) mg/dL Glucose (74-99) mg/dL POC Glucose (mg/dL) 141 H (70-110) mg/dL Calcium (8.4-10.2) mg/dL TIBC (228-460) ug/dL Transferrin (204.0-354.0) mg/dL Crossmatch See Detail Microbiology - Last 24 Hours (Table) 11/16/21 12:02 Blood Culture - Preliminary Blood No Growth after 48 hours 11/16/21 12:02 Blood Culture - Preliminary Blood No Growth after 48 hours 11/16/21 01:00 Gram Stain - Final Sputum Sputum Culture - Final Assessment and Plan Plan: Acute hypoxemic respiratory failure secondary to COVID 19 related pneumonia/ARDS, intubated on a mechanical ventilator, sedated and paralyzed, currently on low tidal volume mechanical ventilation with permissive hype rcapnia. There is worsening in the subcutaneous emphysema bilaterally. The patient is receiving permissive hypercapnia, low tidal volume ventilation. Chest x-ray was noted. Blood gases was noted. The patient is having adequate oxygenation for now. No major interval change compared to yesterday. There may be some interval improvement oxygenation. The patient continues to have normal mediastinum and subcutaneous emphysema extending to the neck area. Peak and static pressures are both elevated. The patient was given permissive hypercapnia and bicarb infusion and most recent acid base status has improved. Acute hypotension, under investigation. Currently on a combination of norepinep hrine infusion and vasopressin physiologic dose. Blood pressure is stable for now on a combination of norepinephrine infusion and vasopressin. The patient was aggressively resuscitated IV fluids. The urine output is adequate. The pressor doses are being gradually weaned off and the patient is currently on norepinephrine at 0.5 [facility] kilogram per minute. Acute cardio pulmonary arrest, probably related to severe hypoxemia/hypotension. The patient had cardiac arrest 2 requiring CPR and epinephrine and the patient had return of spontaneous circulation. Currently on pressors. The pressor requirements have been unchanged compared to yesterday History of recent coronavirus infection, 10/28/2021, [facility] Acute mental status changes prior to intubation mechanical ventilation, presumably secondary to infection. The patient is currently on propofol, intubated on mechanical ventilator and sedated and paralyzed. Acute kidney injury in the creatinine is improving is down to 1.46 and the patient is producing adequate amount of urine output Metabolic acidosis a combination of anion and non-anion gap type addition to a combination of metabolic and respiratory acidosis. Respiratory acidosis due to permissive hypercapnia. The acidosis improving while the patient being done bicarb infusion EN for nutritional support History of hypertension. History of hyperlipidemia. History of diabetes mellitus, blood sugar controled with insulin drip @3 U/HR History of hypothyroidism. History of schizophrenia. Prior history of tobacco use. History of heavy alcohol use. History of marijuana use. Acute leukocytosis on that investigation, improving Anemia, with acute drop in hemoglobin down to 6.7, could be essentially dilutional. Plan Condition is still critical Continue ventilator support and necessity ventilator changes will be done. WEAN DOWN THE FIO2 FURTHER Give the patient paralytic holiday Continue sedation with propofol Stop the bicarb infusion Free water through the NG Monitor sodium level Continue Decadron Continue IV cefepime 2 g every 12 hours Monitor pneumomediastinum and subcutaneous emphysema in the neck area and the chest area Enteral feeding for nutritional support Laxatives to facilitate bowel movements Acid base status was noted in the pH is improved Continue insulin drip at 3 units an hour Very critical condition. We'll try to change the CODE STATUS to DO NOT RESUSCITATE after having a discussion with the . Overall condition unchanged This is a critically care evaluation was done and more than 30 minutes. Time with Patient: Greater than 30
[2021-11-19] MEDS: PANTOPRAZOLE 40 MG/10 ML VIAL IV SCH (09:42)
[2021-11-19] MEDS: ASPIRIN 81 MG PO SCH (09:52)
[2021-11-19] MEDS: THIAMINE 100 MG TAB PO SCH (09:52)
[2021-11-19] MEDS: APIXABAN 5 MG TAB PO SCH ×2 (09:53→21:39)
[2021-11-19] MEDS: DEXTROSE 5% IN WATER 1,000 ML with SODIUM BICARB (1 MEQ/ML) 150 ML IV SCH (09:54)
[2021-11-19] MEDS: CEFEPIME 2 GM in SODIUM CHLORIDE 0.9% 100 ML IVPB SCH ×2 (09:54→21:40)
[2021-11-19] MEDS: CHLORHEXIDINE GLUCONATE 15 ML CUP MUCOUS MEM SCH ×2 (09:55→21:39)
[2021-11-19] MEDS: DEXAMETHASONE SOD PHOSPHATE 10 MG/ML 1 ML VIAL IVP SCH (09:55)
[2021-11-19] MEDS: cloZAPine 100 MG TAB PO SCH ×3 (09:55→21:40)
[2021-11-19] MEDS: lamoTRIgine 25 MG TAB PO SCH ×2 (09:56→21:40)
[2021-11-19 10:33] LABS: Glucose,Whole Blood 144 mg/dL (70-110)
--- NOTE | 2021-11-19 12:00 | P.PN ---
Subjective Progress Note Date: 11/19/21 I am seeing this patient as follow-up during this admission. She was last seen by me on 11/12/2021. Please refer to Dr. Schuler's notes for further details. She is intubated on ventilator. She was IV Nimbex 2mcg/kg/min and was stopped about 30 minutes prior to me examining her. Also is currently on IV Propofol 35mcg/kg/min Objective - Vital Signs Vital signs: Vital Signs Temp 98.8 F 11/19/21 10:51 Pulse 101 H 11/19/21 11:00 Resp 32 H 11/19/21 11:00 BP 107/48 11/19/21 10:51 Pulse Ox 92 L 11/19/21 11:00 FiO2 50 11/19/21 11:00 Intake & Output 11/18/21 11/19/21 11/19/21 18:59 06:59 18:59 Intake Total 5054.934 2572.454 1138.715 Output Total 1770 1565 510 Balance 3284.934 1007.454 628.715 Weight 105.7 kg Intake: IV 3000 1000 365 Cefepime 2 gm In Sodium 100 100 100 Chloride 0.9% 100 ml @ 25 mls/hr IVPB Q12HR DENISSE Rx #:[id number] Dextrose 5% in Water 1, 900 900 225 000 ml @ 75 mls/hr IV . [id number] DENISSE with Sodium Bicarb (1 Meq/ml) 150 ml Rx#:[id number] Sodium Chloride 0.9 40 Sodium Chloride 0.9% 1, 2000 000 ml @ 999 mls/hr IV . Q1H1M ONE Rx#:[id number] Intake, IV Titration 964.934 367.454 243.715 Amount Cisatracurium 200 mg In 200 40.608 Sodium Chloride 0.9% 180 ml @ 1 MCG/KG/MIN 5.184 mls/hr IV .Q24H DENISSE Rx#: [id number] Insulin Regular 100 unit 36.158 52.471 7.945 In Sodium Chloride 0.9% 100 ml @ Per Protocol IV .Q0M DENISSE Rx#:[id number] Norepinephrine 32 mg In 555.120 314.983 95.162 Sodium Chloride 0.9% 218 ml @ 0.84 MCG/KG/MIN 34. 02 mls/hr IV .Q7H21M DENISSE Rx#:[id number] propofoL 1,000 mg In 173.656 100 Empty Bag 1 bag @ 5 MCG/ KG/MIN 2.592 mls/hr IV . Q24H DENISSE Rx#:[id number] Tube Feeding 660 605 220 Blood Product 310 Rc As-1 Unit 310 [id number] Rc As-1 Unit 0 [id number] Other 430 600 Output: Urine 1770 1565 510 Other: Voiding Method Indwelling Catheter Indwelling Catheter Indwelling Catheter ABP, PAP, CO, CI - Last Documented Arterial Blood Pressure 108/49 - Exam GENERAL: The patient is lying in bed and does not seem in acute distress.. LUNG: Intubated on vent. NEUROLOGICAL: Limited. IV Nimbex 2mcg/kg/min and was stopped about 30 minutes prior to me examining her. Also is currently on IV Propofol 35mcg/kg/min Higher mental function: Is comatose. Cranial nerves:Pupils are pinpoint and no reactive to light. Has intact corneal reflex bilaterally. No facial weakness. Has weak gag reflex. Is not breathing over vent. Grimaces face to suctioning. r Motor: Unable to asssess. Cerebellum: Unable to assess. Sensation: Unable to assess. - Labs CBC & Chem 7: 11/19/21 06:15 11/19/21 03:56 Labs: Abnormal Lab Results - Last 24 Hours (Table) 11/18/21 11/18/21 11/18/21 Range/Units 04:40 11:52 14:02 WBC (3.8-10.6) k/uL RBC (3.80-5.40) m/uL Hgb (11.4-16.0) gm/dL Hct (34.0-46.0) % MCHC (31.0-37.0) g/dL RDW (11.5-15.5) % Neutrophils # (1.3-7.7) k/uL Lymphocytes # (1.0-4.8) k/uL ABG pH (7.35-7.45) ABG pCO2 (35-45) mmHg ABG pO2 (83-108) mmHg ABG HCO3 (21-25) mmol/L ABG Total CO2 (19-24) mmol/L Sodium (137-145) mmol/L Chloride (98-107) mmol/L Carbon Dioxide (22-30) mmol/L BUN (7-17) mg/dL Creatinine (0.52-1.04) mg/dL Glucose (74-99) mg/dL POC Glucose (mg/dL) 151 H 184 H (70-110) mg/dL Calcium (8.4-10.2) mg/dL TIBC 193 L (228-460) ug/dL Transferrin 138.0 L (204.0-354.0) mg/dL Crossmatch 11/18/21 11/18/21 11/18/21 Range/Units 16:18 17:54 19:54 WBC (3.8-10.6) k/uL RBC (3.80-5.40) m/uL Hgb (11.4-16.0) gm/dL Hct (34.0-46.0) % MCHC (31.0-37.0) g/dL RDW (11.5-15.5) % Neutrophils # (1.3-7.7) k/uL Lymphocytes # (1.0-4.8) k/uL ABG pH (7.35-7.45) ABG pCO2 (35-45) mmHg ABG pO2 (83-108) mmHg ABG HCO3 (21-25) mmol/L ABG Total CO2 (19-24) mmol/L Sodium (137-145) mmol/L Chloride (98-107) mmol/L Carbon Dioxide (22-30) mmol/L BUN (7-17) mg/dL Creatinine (0.52-1.04) mg/dL Glucose (74-99) mg/dL POC Glucose (mg/dL) 167 H 163 H 156 H (70-110) mg/dL Calcium (8.4-10.2) mg/dL TIBC (228-460) ug/dL Transferrin (204.0-354.0) mg/dL Crossmatch 11/18/21 11/19/21 11/19/21 Range/Units 21:55 00:02 01:59 WBC (3.8-10.6) k/uL RBC (3.80-5.40) m/uL Hgb (11.4-16.0) gm/dL Hct (34.0-46.0) % MCHC (31.0-37.0) g/dL RDW (11.5-15.5) % Neutrophils # (1.3-7.7) k/uL Lymphocytes # (1.0-4.8) k/uL ABG pH (7.35-7.45) ABG pCO2 (35-45) mmHg ABG pO2 (83-108) mmHg ABG HCO3 (21-25) mmol/L ABG Total CO2 (19-24) mmol/L Sodium (137-145) mmol/L Chloride (98-107) mmol/L Carbon Dioxide (22-30) mmol/L BUN (7-17) mg/dL Creatinine (0.52-1.04) mg/dL Glucose (74-99) mg/dL POC Glucose (mg/dL) 169 H 166 H 158 H (70-110) mg/dL Calcium (8.4-10.2) mg/dL TIBC (228-460) ug/dL Transferrin (204.0-354.0) mg/dL Crossmatch 11/19/21 11/19/21 11/19/21 Range/Units 03:55 03:56 03:56 WBC 15.7 H (3.8-10.6) k/uL RBC 2.58 L (3.80-5.40) m/uL Hgb 6.9 L* (11.4-16.0) gm/dL Hct 22.6 L (34.0-46.0) % MCHC 30.5 L (31.0-37.0) g/dL RDW 16.0 H (11.5-15.5) % Neutrophils # 14.3 H (1.3-7.7) k/uL Lymphocytes # 0.6 L (1.0-4.8) k/uL ABG pH (7.35-7.45) ABG pCO2 (35-45) mmHg ABG pO2 (83-108) mmHg ABG HCO3 (21-25) mmol/L ABG Total CO2 (19-24) mmol/L Sodium 147 H (137-145) mmol/L Chloride 114 H (98-107) mmol/L Carbon Dioxide 31 H (22-30) mmol/L BUN 55 H (7-17) mg/dL Creatinine 1.16 H (0.52-1.04) mg/dL Glucose 168 H (74-99) mg/dL POC Glucose (mg/dL) 176 H (70-110) mg/dL Calcium 7.9 L (8.4-10.2) mg/dL TIBC (228-460) ug/dL Transferrin (204.0-354.0) mg/dL Crossmatch 11/19/21 11/19/21 11/19/21 Range/Units 05:54 06:12 06:15 WBC 16.3 H (3.8-10.6) k/uL RBC 2.55 L (3.80-5.40) m/uL Hgb 6.7 L* (11.4-16.0) gm/dL Hct 22.4 L (34.0-46.0) % MCHC 30.1 L (31.0-37.0) g/dL RDW 16.0 H (11.5-15.5) % Neutrophils # 14.7 H (1.3-7.7) k/uL Lymphocytes # 0.7 L (1.0-4.8) k/uL ABG pH 7.26 L (7.35-7.45) ABG pCO2 71 H* (35-45) mmHg ABG pO2 67 L (83-108) mmHg ABG HCO3 32 H (21-25) mmol/L ABG Total CO2 34 H (19-24) mmol/L Sodium (137-145) mmol/L Chloride (98-107) mmol/L Carbon Dioxide (22-30) mmol/L BUN (7-17) mg/dL Creatinine (0.52-1.04) mg/dL Glucose (74-99) mg/dL POC Glucose (mg/dL) 161 H (70-110) mg/dL Calcium (8.4-10.2) mg/dL TIBC (228-460) ug/dL Transferrin (204.0-354.0) mg/dL Crossmatch 11/19/21 11/19/21 11/19/21 Range/Units 06:58 08:19 10:32 WBC (3.8-10.6) k/uL RBC (3.80-5.40) m/uL Hgb (11.4-16.0) gm/dL Hct (34.0-46.0) % MCHC (31.0-37.0) g/dL RDW (11.5-15.5) % Neutrophils # (1.3-7.7) k/uL Lymphocytes # (1.0-4.8) k/uL ABG pH (7.35-7.45) ABG pCO2 (35-45) mmHg ABG pO2 (83-108) mmHg ABG HCO3 (21-25) mmol/L ABG Total CO2 (19-24) mmol/L Sodium (137-145) mmol/L Chloride (98-107) mmol/L Carbon Dioxide (22-30) mmol/L BUN (7-17) mg/dL Creatinine (0.52-1.04) mg/dL Glucose (74-99) mg/dL POC Glucose (mg/dL) 141 H 144 H (70-110) mg/dL Calcium (8.4-10.2) mg/dL TIBC (228-460) ug/dL Transferrin (204.0-354.0) mg/dL Crossmatch See Detail Microbiology - Last 24 Hours (Table) 11/16/21 12:02 Blood Culture - Preliminary Blood No Growth after 48 hours 11/16/21 12:02 Blood Culture - Preliminary Blood No Growth after 48 hours 11/16/21 01:00 Gram Stain - Final Sputum Sputum Culture - Final Assessment and Plan Assessment: Status post cardiac arrest with downtime of 10 minutes. Rule out anoxic encephalopathy superimposed on pre-existing metabolic encephalopathy Encephalopathy seems due to multifactorial: Predominately hypoxic encephalopathy due to COVID-19 pneumonia. Also component of metabolic encephalopathy (hypernatremia, JAYLA). Encephalopathy also due to medication effect (IV Nimbex and Propofol). History of seizure and she had a seizure about 6-8 years ago (blank stares) while ?reported GTC on 03/15/2021 (but her 2.5 hour EEG and routine EEG was negative for seizure or epileptiform discharges) Acute hypoxemic respiratory failure secondary due to pneumonia Acute hypernatremia--resolved JAYLA--resolved Recent [place] virus infection History of diabetes History of hyperthyroid Schizoaffective disorder Primary history of tobacco use History of heavy alcohol use History of marijuana use Plan: * EEG was performed, which was abnormal due to background slowing of moderate to severe degree. This is suggestive of generalized cerebral dysfunction, as can be seen with toxic metabolic encephalopathy or due to diffuse structural brain abnormality. Clinical correlation recommended. No epileptiform activity was seen. * Dr. Schuler ordered repeat CT head on 11/18/2021 to rule out any new intracranial changes and is pending.. * Patient is on Eliquis, also on aspirin 81 mg and Lipitor 40 mg daily. * Nephrology team is on board * We'll defer the rest of the medical management to the primary and ICU team * Patient condition is critical. * Patient is NO CODE. * Discussed with nursing staff in detail. Breezy Orozco M.D. Neuro-Hospitalist Time with Patient: Less than 30
[2021-11-19 13:06] LABS: Glucose,Whole Blood 151 mg/dL (70-110)
--- NOTE | 2021-11-19 14:05 | P.PN ---
Progress Note - Text Progress Note Date: 11/19/21 Chief Complaint: Decreased mentation History of presenting complaint: This is a 50-year-old patient, who follows with Dr. Saenz . Resident of [facility] [place].. known history of bipolar disorder and schizophrenia. 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 Patient was here in May 2021. Severe hypernatremia, acute kidney injury metabolic encephalopathy. 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 Low-dose and high-dose dexamethasone test was put on telemetry specific. Does of Synthroid was increased. Patient now brought in from [facility]. Patient was diagnosed with COVID 19 a few days ago. Was on Paxil of it. Patient became increasingly lethargic. Patient is felt to secondary bacterial pneumonia. Given Levaquin and transferred here. Also noted. Significantly hypernatremic. Patient admitted to ICU. Consultation is made to physical science professor, nephrology, psychiatry, neurology. This morning patient int ICU. On a Precedex drip. BiPAP. Lethargic. Not able to give any history. Admitted with COVID 19 pneumonitis, hypoxia, possibly secondary bacterial pneumonia, severe hyponatremia, severe metabolic encephalopathy, acute kidney injury. On IV Precedex. IV fluids. Levaquin. EEG. November 08: ICU: On BiPAP 12/5. IV Precedex. Lethargic. IV Levaquin. Oral bicarbonate. Medications through NG tube. EEG pending. November 09: ICU: On BiPAP 12/5. Off Precedex. Remains lethargic a bit restless. November 10: ICU: On BiPAP 12. Remains on Precedex. IV fluids. Sinus rhythm. Remains encephalopathic/delirious. 11/14/2021 Sonny Rubin feels better today, he does not feel dizziness while he is lying in bed all the time. He still have low appetite but no chest pain or dyspnea, no abdominal pain. He still complaining from pain in his legs and he has right leg DVT been on Lovenox with plan to switch him to heparin drip on today as he got midline Blood pressure is 87/56, heart rate 120, sodium is 121 On admission his sodium was still low and was started on D5 normal saline at 100 mL/h however after initial improvement sodium dropped to 121 yesterday so we held his IV fluid and the evening sodium improved 124 (no iv lasix given), however this morning is 121 again. We send urine studies and I'll consult ne phrologist. Also patient has negative CTPA for pulmonary embolism but CT of the abdomen and pelvis showing possible gallbladder fossa abscess or complex fluid collection although it is improved from previous 5 cm down to 2.7 centimeters. The recommended liver ultrasound versus MRI, ultrasound shows the same findings. Also surgery due on the case 11/15/2021 Last night his blood pressure dropped with systolic and 50s, there was a rapid response a team response and he was as stated with IV fluids aggressively, his blood pressure improved in 90s this morning and during the round he was awake an d alert looks tired but is appropriate. Sodium was 121 and then 119. He denied any chest pain or abdominal pain, no other complaints clinically. His losing from his puncture wound in the right lower abdomen was a stopped, he was started on heparin drip per recommendation of pointer machine operator. After once by the evening time his blood pressure dropped again was 53/32 with altered mental status, there was another rapid response where patient was transferred to the ICU and levophed was started and his mentation started to improve again. Patient was started also on antibiotic empirically with Zosyn and IV vancomycin total infection ruled out completely as there is still high suspicion, with possible sources including the pressure wound sacral ulcer in the lower back, and less likely the gallbladder bed and fossa with 2.7 cm fluid collection (felt less likely because actually it decreased in size from 5.0 cm previously) After transfer patient and at bedside opted for the DO NOT RESUSCITATE order as per bedside nurse. 11/16/2021 Yesterday patient was still deteriorating, however today patient turned around and start improving patient remains in the ICU he needs to pressors we will fit and vasopressin, lactic acid trending up 6.4. Patient mentation is also deteriorated and become more confused and less responsive. His creatinine remains around 1 although he has low urine output. Patient is resuscitated with many fluids and also his broad-spectrum antibiotics with IV vancomycin and Zosyn, as septic shock is highly suspected is the cause of the patient profound hypotension and shock state. Although other factors might be contributing to it. Because of this we started the patient on hydrocortisone to increase the sensitivity of the adrenergic receptors to the catecholamine. Also replacing electrolytes including calcium and magnesium. Sodium slightly trending up. Patient remains in critical condition. Family at bedside 11/17/2021 Patient today workup and he was awake alert and oriented 3, he follows commands, he feels hungry and actually he started tolerating diet for the first time after several months. He denies any respiratory symptoms, his abdomen looks benign, no other new complaints. Blood pressure is improving and he required less pressors, currently blood pressure is 87/61, is less tachycardic around 110. He is currently on levophed 0.03 which is decreased from yesterday. Last night we added hydrocortisone 100 mg 3 times a day as a replacement therapy but to support blood pressure and increased sensitivity of levophed to its adrenergic receptors. Since blood pressure improvement with lower dose to 50 mg today, possibly we will discontinue it in one or 2 days once blood pressure keep improvement. Also patient receiving fluids. Labs looks stable, hemoglobin 9.8, sodium 126 he remains on Zosyn, vancomycin was discontinued. He remains on Zosyn. Anticoagulation is switched to Eliquis therapeutic dose at 10 mg which could be switched to 5 mg on 11/27. Prognosis remains guarded 11/18/2021 Patient is awake but drowsy, His blood pressure is improving but he still on pressors although is requiring less amount He has poor urine output but creatinine is around 1.1. His GFR is 66. He is going to receive 1 dose of Lasix 80 mg today. Also significant sodium bicarb and albumin infusion. He remains on Zosyn Anticoagulation with Eliquis Patient was seen and covered by [facility] hospitalist from November 14 through November 18. 11/19/2021: I resumed care of patient today ICU: Ventilated intubated. FiO2 50 and a PEEP of 22. Telemetry sinus rhythm. Drips include norepinephrine, propofol, insulin, vasopressin. Nimbex was discontinued earlier today. Receiving a unit of blood. 2 feeding at 55 mL an hour. Bicarbonate infusion discontinued earlier. NG tube. Active Medications Apixaban (Apixaban 5 Mg Tab) 5 mg PO BID [facility]; Protocol Last Admin: 11/19/21 09:53 Dose: 5 mg Artificial Tears (Artificial Tears-Hypromellose Drops 15 Ml Btl) 1 drops BOTH EYES Q4HR [facility] Last Admin: 11/19/21 08:28 Dose: 1 drops Aspirin (Aspirin 81 Mg) 81 mg PO DAILY@0900 [facility] Last Admin: 11/19/21 09:52 Dose: 81 mg Atorvastatin Calcium (Atorvastatin 40 Mg Tab) 40 mg PO HS@2100 [facility] Last Admin: 11/18/21 20:38 Dose: 40 mg Chlorhexidine Gluconate (Chlorhexidine Gluconate 15 Ml Cup) 15 ml MUCOUS MEM BID [facility] Last Admin: 11/19/21 09:55 Dose: 15 ml Clozapine (Clozapine 100 Mg Tab) 200 mg PO TID@0900,1300,2100 [facility] Stop: 11/22/21 23:00 Last Admin: 11/19/21 09:55 Dose: 200 mg Dexamethasone Sodium Phosphate (Dexamethasone Sod Phosphate 10 Mg/Ml 1 Ml Vial) 6 mg IVP DAILY [facility] Last Admin: 11/19/21 09:55 Dose: 6 mg Cisatracurium Besylate 200 mg/ (Sodium Chloride) 200 mls @ 5.184 mls/hr IV .Q24H [facility]; Protocol Last Titration: 11/19/21 09:30 Dose: 0 mcg/kg/min, 0 mls/hr Propofol 1,000 mg/ IV Solution 100 mls @ 2.592 mls/hr IV .Q24H [facility]; Protocol Last Admin: 11/19/21 13:19 Dose: 45 mcg/kg/min, 23.328 mls/hr Vasopressin 20 unit/ Sodium (Chloride) 51 mls @ 4.59 mls/hr IVPB .Q11H7M [facility] Last Admin: 11/18/21 21:48 Dose: 4.59 mls/hr Cefepime HCl 2 gm/ Sodium (Chloride) 100 mls @ 25 mls/hr IVPB Q12HR [facility]; Protocol Last Admin: 11/19/21 09:54 Dose: 25 mls/hr Norepinephrine Bitartrate 32 (mg/ Sodium Chloride) 250 mls @ 34.02 mls/hr IV .Q7H21M [facility]; Protocol Last Titration: 11/19/21 12:00 Dose: 0.24 mcg/kg/min, 9.72 mls/hr Sodium Bicarbonate 150 ml/ (Dextrose/Water) 1,150 mls @ 75 mls/hr IV .[id number] [facility] Last Admin: 11/19/21 09:54 Dose: Not Given Insulin Human Regular 100 unit (/ Sodium Chloride) 101 mls @ 0 mls/hr IV .Q0M [facility]; Protocol Last Titration: 11/19/21 08:19 Dose: 3 unit/hr, 3.03 mls/hr Lamotrigine (Lamotrigine 25 Mg Tab) 25 mg PO BID@0900,2100 [facility] Last Admin: 11/19/21 09:56 Dose: 25 mg Levothyroxine Sodium (Levothyroxine 100 Mcg Tab) 100 mcg PO DAILY@0600 [facility] Last Admin: 11/19/21 05:08 Dose: 100 mcg Miscellaneous Information (Pneumonia Protocol Utilized 1 Each [facility]) 1 each PO ONCE PRN PRN Reason: Per Protocol Miscellaneous Information (Potassium Replacement Protocol 1 Each [facility]) 1 each MISCELLANE DAILY PRN; Protocol PRN Reason: Per Protocol Naloxone HCl (Naloxone 0.4 Mg/Ml 1 Ml Vial) 0.2 mg IV Q2M PRN PRN Reason: Opioid Reversal Pantoprazole Sodium (Pantoprazole 40 Mg/10 Ml Vial) 40 mg IV DAILY [facility] Last Admin: 11/19/21 09:42 Dose: 40 mg Thiamine HCl (Thiamine 100 Mg Tab) 100 mg PO DAILY [facility] Last Admin: 11/19/21 09:52 Dose: 100 mg Past medical history to include: Hypertension, hypothyroid, bipolar disorder, schizophrenia. excessive alcohol use in the past. No smoking. Psychosis, catatonic-like syndrome Social history: Heavy alcohol use in the past. . No smoking. Currently at [facility] Family history: Patient cannot tell Physical examination: VITAL SIGNS: 98.8, 98, 36, 97.47, 80% on the ventilator GENERAL: Intubated on the ventilator. Sedated and paralyzed. EYES: Pupils equal. Conjunctiva normal. HEENT: External appearance of nose and ears normal, oral cavity dry. NG tube NECK: JVD unable to assess; masses not palpable. HEART: First and second heart sounds are normal; some edema. LUNGS: Respiratory rate increased; decreased breath sounds ABDOMEN: Soft, nontender, liver spleen not palpable, no masses palpable. PSYCH: Patient sedated, unable to assess MUSCULOSKELETAL:No Clubbing/cyanosis;muscles-grossly intact. NEUROLOGICAL: Patient sedated INVESTIGATIONS, reviewed in the clinical context: November 19: WBC is 16.3 hemoglobin 6.7 platelets 206 November 10: WBC 15.2 hemoglobin 11.2 sodium 150 progression 4. 36 creatinine 1.13 November 09: WBC 14.6 hemoglobin 11.4 2149 potassium 4.2 BUN 44 creatinine 1.27 November 08: WBC 12.7 hemoglobin 11.4 sodium 153 potassium 4.5 BUN 60 creatinine 1.55 cortisol 18 November 07: White count 20.7 hemoglobin 12 platelets 345 sodium 162 potassium 4.2. 58 creatinine 2.13 ammonia less than 9 COVID 19: Detected November 06: White count 9.5 hemoglobin 12.6 platelets 321 sodium 157 potassium 4.3 chloride 124 BUN 50 creatinine 2.04 UA positive for leukoesterase, WBC Pro-calcitonin 1.11 Chest x-ray film personally reviewed by me-scattered infiltrate EKG tracing personally reviewed by me-sinus rhythm Previous labs: BUN 9 creatinine 0.95 on June 2021 Assessment and plan: -Severe hypernatremia, from free water deficit from decreased oral intake: Slow improvement Free fluid -COVID 19 with pneumonitis/hypoxia: Slow to respond Intubated Dexamethasone 6 mg -Possible secondary bacterial pneumonia : Slow to respond Levaquin 750 mg, then changed over to cefepime -Acute hypoxic respiratory failure from respiratory suppression multifactorial: Slow to respond Initially BiPAP 12/5. Currently intubated -Acute severe metabolic encephalopathy from renal failure and delirium: Slow to respond Treat underlying conditions. EEG done. -Schizoaffective disorder, bipolar type. Psychosis: Clozaril 200 mg by mouth daily 3 times a day Lamictal 25 mg twice a day Ativan 1 mg IV every 4 when necessary -Bipolar disorder See above medications -Acute kidney injury, possibly prerenal/ ATN : Some improvement Admission creatinine 2.04. D5W. -Diabetes mellitus type 2, on oral hypoglycemic Follow Accu-Cheks -Hypothyroid, Synthroid 100g a day -Hyperlipidemia Lipitor 40 mg daily at bedtime TriCor 134 mg before supper -Chronic DVT both lower extremity diagnosed on October 19 2020 [place]. -Full code Currently in IV norepinephrine, propofol, insulin, vasopressin. Getting 1 unit of blood. 2 feeding at 55 mL an hour. Nimbex discontinued earlier today. Pulses guarded. Follow-up with other consultants.
--- NOTE | 2021-11-19 14:07 | CT ---
EXAMINATION TYPE: CT brain wo con CT DLP: 1141.4 mGycm, Automated exposure control for dose reduction was used. DATE OF EXAM: 11/19/2021 1:55 PM COMPARISON: Prior CT Brain from . 11/10/2021 CLINICAL INDICATION:Female, 50 years old with history of Cardiac arrest, TECHNIQUE: Brain: Multiple axial CT images of the brain were obtained without IV contrast. FINDINGS: Brain: Extra-axial spaces: No abnormal extra-axial fluid collections. Ventricular system: Within normal limits. Cavum septum pellucidum Cerebral parenchyma: No acute intraparenchymal hemorrhage or mass effect. The nick-white junction is well differentiated. Cerebellum: Unremarkable. Mass effect: No evidence of midline shift. Intracranial vasculature: unremarkable Soft tissues: There is subcutaneous gas tracking in to the skull base Calvarium/osseous structures: No depressed skull fracture. Paranasal sinuses and mastoid air cells: Mild scattered paranasal sinus disease. Visualized orbits: Orbital contents are intact. Mild exophthalmos bilaterally similar to prior. Other: Partially visualized nasogastric and endotracheal tubes. IMPRESSION: 1. No acute intracranial process. 2. Subcutaneous emphysema tracking into the skull base myofascial planes.
[2021-11-19 15:49] LABS: Glucose,Whole Blood 136 mg/dL (70-110)
[2021-11-19 17:45] LABS: Glucose,Whole Blood 192 mg/dL (70-110)
[2021-11-19 18:20] LABS: Glucose,Whole Blood 191 mg/dL (70-110)
[2021-11-19 19:00] LABS: Glucose,Whole Blood 202 mg/dL (70-110)
[2021-11-19 19:07] LABS: Anisocytosis Slight; HCT 27.4 % (34.0-46.0); Hypochromasia Marked; MCH 27.1 pg (25.0-35.0); MCHC 30.9 g/dL (31.0-37.0); MCV 87.6 fL (80.0-100.0); Mean Platelet Volume 8.7; Platelet Count 202 k/uL (150-450); Poikilocytosis Slight; RBC 3.12 m/uL (3.80-5.40); RDW 16.2 % (11.5-15.5); WBC 15.2 k/uL (3.8-10.6)
[2021-11-19 19:14] LABS: HGB 8.5 gm/dL (11.4-16.0)
[2021-11-19 20:27] LABS: Glucose,Whole Blood 186 mg/dL (70-110)
[2021-11-19] MEDS: INSULIN REGULAR 100 UNIT in SODIUM CHLORIDE 0.9% 100 ML IV SCH (20:28)
[2021-11-19] MEDS: ATORVASTATIN 40 MG TAB PO SCH (21:39)
[2021-11-19 21:57] LABS: Glucose,Whole Blood 138 mg/dL (70-110)
[2021-11-19] MEDS: SODIUM CHLORIDE 0.9% 50 ML with VASOPRESSIN 20 UNIT IVPB SCH ×2 (22:11)
[2021-11-19 22:42] LABS: Glucose,Whole Blood 126 mg/dL (70-110)
[2021-11-19 23:33] LABS: Glucose,Whole Blood 157 mg/dL (70-110)
[2021-11-20 01:54] LABS: Glucose,Whole Blood 132 mg/dL (70-110)
[2021-11-20 03:12] LABS: Glucose,Whole Blood 153 mg/dL (70-110)
[2021-11-20] MEDS: NOREPINEPHRINE 32 MG in SODIUM CHLORIDE 0.9% 218 ML IV SCH ×4 (04:46→17:38)
[2021-11-20 04:59] LABS: Glucose,Whole Blood 189 mg/dL (70-110)
[2021-11-20 05:08] LABS: ABG HCO3 33 mmol/L (21-25); ABG Oxygen Saturation 90.1 % (94-97); ABG PCO2 69 mmHg (35-45); ABG PH 7.29 (7.35-7.45); ABG TCO2 35 mmol/L (19-24)
[2021-11-20 05:10] LABS: ABG PO2 56 mmHg (83-108); Allen Test Performed? no
[2021-11-20 05:20] LABS: Anisocytosis Slight; HCT 25.2 % (34.0-46.0); HGB 8.1 gm/dL (11.4-16.0); Hypochromasia Marked; MCHC 32.2 g/dL (31.0-37.0); MCV 86.9 fL (80.0-100.0); Mean Platelet Volume 8.7; Platelet Count 202 k/uL (150-450); Poikilocytosis Slight; RDW 16.2 % (11.5-15.5)
[2021-11-20] MEDS: ARTIFICIAL TEARS-HYPROMELLOSE DROPS 15 ML BTL BOTH EYES SCH ×5 (05:55→22:06)
[2021-11-20 06:07] LABS: Glucose,Whole Blood 168 mg/dL (70-110)
[2021-11-20] MEDS: LEVOTHYROXINE 100 MCG TAB PO SCH (06:11)
[2021-11-20 06:40] LABS: Calcium 8.3 mg/dL (8.4-10.2); Potassium 3.4 mmol/L (3.5-5.1)
[2021-11-20 07:07] LABS: Glucose,Whole Blood 157 mg/dL (70-110)
[2021-11-20] MEDS: SODIUM CHLORIDE 0.9% 50 ML with VASOPRESSIN 20 UNIT IVPB SCH ×6 (07:13→18:37)
[2021-11-20] MEDS: POTASSIUM CHLORIDE 20 MEQ in WATER FOR INJECTION 1 100ML.BAG IVPB SCH ×2 (07:15→09:30)
--- NOTE | 2021-11-20 07:30 | XR ---
EXAMINATION TYPE: XR chest 1V portable DATE OF EXAM: 11/20/2021 5:38 AM COMPARISON: Chest radiograph from one day prior. TECHNIQUE: XR chest 1V portable Portable AP radiograph of the chest.. CLINICAL INDICATION:Female, 50 years old with history of Tube placement; FINDINGS: Lungs/Pleura: Multifocal airspace opacities. No evidence of pneumothorax or pleural effusion. Pulmonary vascularity: Unremarkable. Heart/mediastinum: Cardiomediastinal silhouette is unremarkable. Musculoskeletal: No acute osseous pathology. Other findings: Subcutaneous emphysema scattered throughout the visualized thorax. Lines/Tubes: Endotracheal tube with distal tip 6.1 cm above the funmilayo Nasogastric tube with its distal tip and side-port projecting under the diaphragm. Left internal jugular central venous catheter with distal tip at the cavoatrial junction. IMPRESSION: 1. Similar multifocal airspace opacities. 2. Stable support lines and tubes.
[2021-11-20 08:00] LABS: Glucose,Whole Blood 172 mg/dL (70-110)
[2021-11-20] MEDS: ASPIRIN 81 MG PO SCH (08:14)
[2021-11-20] MEDS: DEXTROSE 5% IN WATER 1,000 ML IV SCH (08:14)
[2021-11-20] MEDS: APIXABAN 5 MG TAB PO SCH ×2 (08:14→22:05)
[2021-11-20] MEDS: lamoTRIgine 25 MG TAB PO SCH ×2 (08:15→22:06)
[2021-11-20] MEDS: CHLORHEXIDINE GLUCONATE 15 ML CUP MUCOUS MEM SCH ×2 (08:15→22:05)
[2021-11-20] MEDS: cloZAPine 100 MG TAB PO SCH ×3 (08:15→22:06)
[2021-11-20] MEDS: DEXAMETHASONE SOD PHOSPHATE 10 MG/ML 1 ML VIAL IVP SCH (08:15)
[2021-11-20] MEDS: CEFEPIME 2 GM in SODIUM CHLORIDE 0.9% 100 ML IVPB SCH ×2 (08:15→22:05)
[2021-11-20] MEDS: THIAMINE 100 MG TAB PO SCH (08:16)
[2021-11-20] MEDS: PANTOPRAZOLE 40 MG/10 ML VIAL IV SCH (08:16)
--- NOTE | 2021-11-20 08:34 | P.PN ---
Subjective Patient is seen in follow-up for acute kidney injury. Patient has a cardiac arrest this admission. She is currently intubated. She is maintained on Levophed and vasopressin. Renal function continues to improve. Receiving tube feeds. Sodium level 150. Vital signs are stable. General: Resting in bed. On vasopressor support. HEENT: Intubated. LUNGS: Breath sounds decreased. HEART: Tachycardic. ABDOMEN: Soft, no distention. EXTREMITITES: No edema. Objective - Vital Signs Vital signs: Vital Signs Temp 98.4 F 11/20/21 04:00 Pulse 85 11/20/21 07:00 Resp 38 H 11/20/21 07:00 BP 101/48 11/20/21 07:00 Pulse Ox 88 L 11/20/21 07:00 FiO2 60 11/20/21 07:38 Intake & Output 11/19/21 11/20/21 11/20/21 18:59 06:59 18:59 Intake Total 2506.666 2305.924 77.929 Output Total 1465 1235 100 Balance 0242.757 5806.924 -22.071 Weight 107.2 kg Intake: IV 525 340 20 Cefepime 2 gm In Sodium 100 100 Chloride 0.9% 100 ml @ 25 mls/hr IVPB Q12HR [facility] Rx #:[id number] Dextrose 5% in Water 1, 225 000 ml @ 75 mls/hr IV . [id number] [facility] with Sodium Bicarb (1 Meq/ml) 150 ml Rx#:[id number] Sodium Chloride 0.9 200 240 20 Intake, IV Titration 411.666 405.924 2.929 Amount Cisatracurium 200 mg In 40.608 Sodium Chloride 0.9% 180 ml @ 1 MCG/KG/MIN 5.184 mls/hr IV .Q24H [facility] Rx#: [id number] Insulin Regular 100 unit 30.771 26.360 2.929 In Sodium Chloride 0.9% 100 ml @ Per Protocol IV .Q0M [facility] Rx#:[id number] Norepinephrine 32 mg In 145.247 79.772 Sodium Chloride 0.9% 218 ml @ 0.84 MCG/KG/MIN 34. 02 mls/hr IV .Q7H21M [facility] Rx#:[id number] propofoL 1,000 mg In 195.040 299.792 Empty Bag 1 bag @ 5 MCG/ KG/MIN 2.592 mls/hr IV . Q24H [facility] Rx#:[id number] Oral 900 Tube Feeding 660 660 55 Blood Product 310 Rc As-1 Unit 310 [id number] Rc As-1 Unit 0 [id number] Other 600 Output: Urine 1465 1235 100 Other: Voiding Method Indwelling Catheter Indwelling Catheter ABP, PAP, CO, CI - Last Documented Arterial Blood Pressure 101/47 - Labs CBC & Chem 7: 11/20/21 04:55 11/20/21 04:55 Labs: Abnormal Lab Results - Last 24 Hours (Table) 11/19/21 11/19/21 11/19/21 Range/Units 06:58 10:32 13:04 WBC (3.8-10.6) k/uL RBC (3.80-5.40) m/uL Hgb (11.4-16.0) gm/dL Hct (34.0-46.0) % MCHC (31.0-37.0) g/dL RDW (11.5-15.5) % ABG pH (7.35-7.45) ABG pCO2 (35-45) mmHg ABG pO2 (83-108) mmHg ABG HCO3 (21-25) mmol/L ABG Total CO2 (19-24) mmol/L ABG O2 Saturation (94-97) % Sodium (137-145) mmol/L Potassium (3.5-5.1) mmol/L Chloride (98-107) mmol/L Carbon Dioxide (22-30) mmol/L BUN (7-17) mg/dL Creatinine (0.52-1.04) mg/dL Glucose (74-99) mg/dL POC Glucose (mg/dL) 144 H 151 H (70-110) mg/dL Calcium (8.4-10.2) mg/dL Crossmatch See Detail 11/19/21 11/19/21 11/19/21 Range/Units 15:47 17:43 18:18 WBC (3.8-10.6) k/uL RBC (3.80-5.40) m/uL Hgb (11.4-16.0) gm/dL Hct (34.0-46.0) % MCHC (31.0-37.0) g/dL RDW (11.5-15.5) % ABG pH (7.35-7.45) ABG pCO2 (35-45) mmHg ABG pO2 (83-108) mmHg ABG HCO3 (21-25) mmol/L ABG Total CO2 (19-24) mmol/L ABG O2 Saturation (94-97) % Sodium (137-145) mmol/L Potassium (3.5-5.1) mmol/L Chloride (98-107) mmol/L Carbon Dioxide (22-30) mmol/L BUN (7-17) mg/dL Creatinine (0.52-1.04) mg/dL Glucose (74-99) mg/dL POC Glucose (mg/dL) 136 H 192 H 191 H (70-110) mg/dL Calcium (8.4-10.2) mg/dL Crossmatch 11/19/21 11/19/21 11/19/21 Range/Units 18:50 18:59 20:26 WBC 15.2 H (3.8-10.6) k/uL RBC 3.12 L (3.80-5.40) m/uL Hgb 8.5 L D (11.4-16.0) gm/dL Hct 27.4 L (34.0-46.0) % MCHC 30.9 L (31.0-37.0) g/dL RDW 16.2 H (11.5-15.5) % ABG pH (7.35-7.45) ABG pCO2 (35-45) mmHg ABG pO2 (83-108) mmHg ABG HCO3 (21-25) mmol/L ABG Total CO2 (19-24) mmol/L ABG O2 Saturation (94-97) % Sodium (137-145) mmol/L Potassium (3.5-5.1) mmol/L Chloride (98-107) mmol/L Carbon Dioxide (22-30) mmol/L BUN (7-17) mg/dL Creatinine (0.52-1.04) mg/dL Glucose (74-99) mg/dL POC Glucose (mg/dL) 202 H 186 H (70-110) mg/dL Calcium (8.4-10.2) mg/dL Crossmatch 07/08/0811/19/21 11/19/21 Range/Units 21:55 22:40 23:31 WBC (3.8-10.6) k/uL RBC (3.80-5.40) m/uL Hgb (11.4-16.0) gm/dL Hct (34.0-46.0) % MCHC (31.0-37.0) g/dL RDW (11.5-15.5) % ABG pH (7.35-7.45) ABG pCO2 (35-45) mmHg ABG pO2 (83-108) mmHg ABG HCO3 (21-25) mmol/L ABG Total CO2 (19-24) mmol/L ABG O2 Saturation (94-97) % Sodium (137-145) mmol/L Potassium (3.5-5.1) mmol/L Chloride (98-107) mmol/L Carbon Dioxide (22-30) mmol/L BUN (7-17) mg/dL Creatinine (0.52-1.04) mg/dL Glucose (74-99) mg/dL POC Glucose (mg/dL) 138 H 126 H 157 H (70-110) mg/dL Calcium (8.4-10.2) mg/dL Crossmatch 11/20/21 11/20/21 11/20/21 Range/Units 01:52 03:10 04:55 WBC 14.0 H (3.8-10.6) k/uL RBC 2.90 L (3.80-5.40) m/uL Hgb 8.1 L (11.4-16.0) gm/dL Hct 25.2 L (34.0-46.0) % MCHC (31.0-37.0) g/dL RDW 16.2 H (11.5-15.5) % ABG pH (7.35-7.45) ABG pCO2 (35-45) mmHg ABG pO2 (83-108) mmHg ABG HCO3 (21-25) mmol/L ABG Total CO2 (19-24) mmol/L ABG O2 Saturation (94-97) % Sodium (137-145) mmol/L Potassium (3.5-5.1) mmol/L Chloride (98-107) mmol/L Carbon Dioxide (22-30) mmol/L BUN (7-17) mg/dL Creatinine (0.52-1.04) mg/dL Glucose (74-99) mg/dL POC Glucose (mg/dL) 132 H 153 H (70-110) mg/dL Calcium (8.4-10.2) mg/dL Crossmatch 11/20/21 11/20/21 11/20/21 Range/Units 04:55 04:57 05:05 WBC (3.8-10.6) k/uL RBC (3.80-5.40) m/uL Hgb (11.4-16.0) gm/dL Hct (34.0-46.0) % MCHC (31.0-37.0) g/dL RDW (11.5-15.5) % ABG pH 7.29 L (7.35-7.45) ABG pCO2 69 H (35-45) mmHg ABG pO2 56 L* (83-108) mmHg ABG HCO3 33 H (21-25) mmol/L ABG Total CO2 35 H (19-24) mmol/L ABG O2 Saturation 90.1 L (94-97) % Sodium 150 H (137-145) mmol/L Potassium 3.4 L (3.5-5.1) mmol/L Chloride 115 H (98-107) mmol/L Carbon Dioxide 33 H (22-30) mmol/L BUN 61 H (7-17) mg/dL Creatinine 1.09 H (0.52-1.04) mg/dL Glucose 172 H (74-99) mg/dL POC Glucose (mg/dL) 189 H (70-110) mg/dL Calcium 8.3 L (8.4-10.2) mg/dL Crossmatch 11/20/21 11/20/21 11/20/21 Range/Units 06:07 07:06 07:58 WBC (3.8-10.6) k/uL RBC (3.80-5.40) m/uL Hgb (11.4-16.0) gm/dL Hct (34.0-46.0) % MCHC (31.0-37.0) g/dL RDW (11.5-15.5) % ABG pH (7.35-7.45) ABG pCO2 (35-45) mmHg ABG pO2 (83-108) mmHg ABG HCO3 (21-25) mmol/L ABG Total CO2 (19-24) mmol/L ABG O2 Saturation (94-97) % Sodium (137-145) mmol/L Potassium (3.5-5.1) mmol/L Chloride (98-107) mmol/L Carbon Dioxide (22-30) mmol/L BUN (7-17) mg/dL Creatinine (0.52-1.04) mg/dL Glucose (74-99) mg/dL POC Glucose (mg/dL) 168 H 157 H 172 H (70-110) mg/dL Calcium (8.4-10.2) mg/dL Crossmatch Microbiology - Last 24 Hours (Table) 11/16/21 12:02 Blood Culture - Preliminary Blood No Growth after 72 hours 11/16/21 12:02 Blood Culture - Preliminary Blood No Growth after 72 hours Assessment and Plan Plan: Assessment: 1. Acute kidney injury secondary to ATN secondary to cardiac arrest/shock. Baseline creatinine near 1. Renal function continues to improve. Creatinine 1.09. Nonoliguric. No hydronephrosis noted on kidney ultrasound. 2. Hypernatremia from lack of oral water intake. 3. Acute hypercapnic respiratory failure. Improved. 4. Status post cardiac arrest this admission. 5. Recent coronavirus infection. 6. Acute blood loss anemia. No active bleeding. Status post blood transfusion this admission. Iron replete. 7. Hypokalemia from poor intake. Plan: Maintain tube feeds. Increase free water flushes to 400 mL every 4 hours. Start D5W at 60 mL an hour. Repeat BMP this evening. Wean FiO2 and vasopressors. Avoid nephrotoxins. Continue to monitor renal function and urine output. Cortisol level not low data 11/08/2021. Currently on dexamethasone. Potassium being replaced. Check magnesium level as well.
[2021-11-20] MEDS: SODIUM CHLORIDE 0.9% 500 ML 500 ML IV SCH (08:40)
[2021-11-20 09:09] LABS: Glucose,Whole Blood 189 mg/dL (70-110)
[2021-11-20] MEDS: FUROSEMIDE 10 MG/ML 4 ML VIAL IV SCH (09:34)
[2021-11-20 09:57] LABS: Glucose,Whole Blood 188 mg/dL (70-110)
[2021-11-20 11:01] LABS: Glucose,Whole Blood 199 mg/dL (70-110)
[2021-11-20 12:05] LABS: Glucose,Whole Blood 188 mg/dL (70-110)
--- NOTE | 2021-11-20 12:21 | P.PN ---
Subjective Progress Note Date: 11/20/21 50-year-old female, who is brought in by the [place] emergency services. She apparently resides at [facility] in that area. She apparently has a history of schizophrenia, as well as a history of recent infection with coronavirus. The patient was brought in because of mental status changes, and also low saturations. Apparently the patient was evaluated there and thought to have pneumonia. The patient was treated with Levaquin here. Currently, she seen in the emergency room, room 11. She is on 15 L high flow oxygen. She's getting saline at 75 mL an hour. I did have the opportunity to speak to the patient's , name rAt. He was able to provide some history. [facility], but is unable to prepare food for herself. Her mental status varies hour to hour and day today according to him. The patient herself can give me no history. She sees been here in the emergency department, she's been moaning and groaning. Her ch est x-ray shows bilateral patchy infiltrates. A blood gas was done and showed a pO2 of 89, pCO2 35, and pH is 7.332. She apparently has a history of diabetes, hypertension, hyperlipidemia, and hypothyroidism. White count 11.5, hemoglobin 12.6, hematocrit 41.3, with a normal platelet count. Sodium 157, potassium 4.3, chlorides 124, CO2 19, anion gap 14, BUN 50, creatinine 2.04. Her lactic acid was 1.2. Pro-calcitonin level is pending. Urine is yellow and cloudy. There is 1+ protein. Trace blood. Small positive leukocyte esterase, 7 RBCs, 9 WBCs, and many bacteria. Chest x-ray shows patchy bilateral infiltrates. Progress note dated 11/08/2021. 50-year-old female seen in the emergency department yesterday. She was brought in from one of the local nursing homes, with complaints of mental status changes, low saturations, and possibly pneumonia. The patient was initially seen in the ER, and then transferred to the intensive care, where she was seen yesterday and today, in room 254. She's currently on BiPAP. BiPAP settings are 12/5 and 65%. He is currently receiving Levaquin. Microbiologic cultures are negative. She did test positive for coronavirus infection. She's getting D5W 100 mL an hour Precedex at 0.5 mcg/kg per hour. White count was 12.7, hemoglobin 11.4, hematocrit 37.2, and platelet count 270,000. Sodium 153, potassium 4.5, chlorides 119, CO2 27, with a BUN and creatinine of 60, and 1.55. Chest x-ray continues to show bilateral airspace disease. Progress note dated 11/09/2021. 50-year-old female seen in consultation 2 days ago. She was brought in from one of the local nursing homes with complaints of mental status changes, possible pneumonia, and low saturations. The patient was seen initially in the emergency department, and was admitted to the intensive care unit. She remains on BiPAP, with settings of 12/5 and 80%. She's getting dexmedetomidine at 0.5 mcg/kg/h. She's getting D5W at 100 mL an hour. Today, we will attempt to get her off of dexmedetomidine, and replace it with Haldol IM. According to the nurse, she had a very uneventful night. White count 14.6, hemoglobin 11.4, hematocrit 38.2, and platelet count 315,000. Sodium 149, potassium 4.2, chlorides 117, CO2 24, BUN 44, and creatinine 1.27. Calcium is normal. Microbiologic studies are thus far negative. No chest x-ray today. CAT scan of the brain did not show anything acute. The patient is seen today 11/10/2021 in follow-up in the intensive care unit. S he remains on BiPAP 12/5 and 80% FiO2. She has required dexmedetomidine at 0.8 mcg/kg/h. Currently she is resting comfortably in bed. Chest x-ray reveals bilateral airspace disease. No evidence of pneumothorax or pleural effusions. Nasogastric tube remains in place. CT scan of the brain reveals an atrophic and chronic small vessel ischemic changes without acute intracranial process. Blood cultures revealed no growth. White count 15.2. Hemoglobin 11.2. Platelets 298. Sodium 150. Potassium 4.0. Chloride 118. BUN 36. Creatinine 1.13. Glucose 172. She remains on Decadron, Levaquin. Anticoagulated with Eliquis. Progress note dated 11/12/2021. The patient is again seen today in room 254. She remains on BiPAP, with settings of 12/5 and 55%. She is on saline at 10 mL an hour, and Precedex at 0.9 mcg/kg per hour. Today, we will discontinue the saline. We'll put her on dextrose at 100 mL an hour. She is receiving Jevity at 50 mL an hour, which is goal. Her oxygenation has improved. Just a couple days ago, she was on 100%. Sodium 152, potassium 3.9, chlorides 119, CO2 27, BUN 34, creatinine 1.07. Chest x-ray shows persistent infiltrate throughout the right midlung and right lower lobe lung zones, as well as in the left lower lobe. 11/13/2021, the patient is being seen for follow-up in the intensive care unit. The patient is a case of severe coronary related pneumonia. [facility]. She presented to us with hypoxic respiratory failure and currently she is on a BiPAP. This morning, the patient is on a BiPAP pressure of 12/5 cm of water with an FiO2 of 55%. She had a follow-up chest x-ray that showed evidence of pneumomediastinum extending to her neck area. No evidence of any pneumothorax. There is diffuse bilateral airspace disease consistent with colloid 19 related pneumonia. The patient is tolerating the BiPAP without any m ajor difficulties pH is able to generate a tidal volume of 600. Her minute ventilation is quite high at this point in time. Her respiratory rate in the low 30s. She is on Precedex which is running at 1.2 mcg/kg per minute. She is a bit confused. She is extremely weak. She has a weak cough. Unable to raise her arms or legs. She follows simple commands intermittently. She has been on Decadron 6 mg IV every 24 hours. Along with BiPAP therapy, the patient has an NG tube in place and she is receiving enteral feeding for nutritional support and the patient is currently on Jevity 1.2 at the rate of 50 mL an hour. In terms of her blood work, the patient's sodium is 145 and the patient received D5 water at the rate of 30 mL an hour. Sodium level is normalized and is down to 145. BUN is at 40 with a creatinine of 1.08. Glucose is at 211. Calcium level is at 9.3. The patient otherwise is on Levemir insulin 20 units daily along with NovoLog sliding scale coverage. She has been covered empirically with IV antibiotics and the patient is receiving levofloxacin 750 mg every 24 hours. Her pro-calcitonin level at time of admission was 1.1. Inflammatory markers are not available. 11/14/2021, the patient is very much encephalopathic and lethargic. She is apparent on Precedex. While off the medication, the patient gets agitated and thrashes around and she becomes asynchronous with a BiPAP machine. Otherwise, while on Precedex, the patient is calm and comfortable and synchronous with the BiPAP machine. She is extremely lethargic, extremely weak, quite debilitated at this point in time. She remains BiPAP dependent and the current BiPAP settings of 12/5 with an FiO2 of 55%. The chest x-ray from today shows stable findings. No significant interval change. No worsening of the pneumomediastinum. NG tube is in a good location. The patient is generating tidal volumes of above 500 and her current respiratory rate is around 25 with a minute ventilation of 12.7 L per minute. She did have a bout of aspiration yesterday. This did not affect her oxygenation. The white cell causes 11 with a hemoglobin of 11.5. BUN is at 38 and a creatinine of 1.04 and his sodium level of 142. The patient remains on Decadron 6 mg IV every 24 hours. The patient remains on Levemir insulin 20 units subcu daily along with Novolin 70/30 coverage. The patient on half-normal saline at the rate of 75 mL's an hour. Electrolytes are all stable for now. No other significant events overnight. No seizure activity. The patient remains on Jevity 1.5 at the rate of 50 an hour. She is tolerating her tube feeds well. No abdominal distention. No bowel activity and the patient is going to receive a laxative suppository today. She is afebrile. Awaiting inflammatory markers. We will also repeat full calcitonin level. We also repeat d-dimer's. 11/15/2021, seeing the patient for a follow-up. Neurologically still the same. The patient is not communicating. She is profoundly weak. We'll try to wean off the Precedex yesterday and the patient became quite restless and agitated. Based on that, the patient was kept on Precedex which is currently running at 1.2 mcg/kg per minute. This case the patient quite comfortable and synchronous with the BiPAP machine. The patient remains on a BiPAP at a pressure of 12/5 cm of water with an FiO2 of 55%. And the patient's pulse ox has been fluctuating. Earlier this point she was at 97% and currently she is somewhat between 89-90%. Based on that, blood gases will be obtained to confirm the patient's oxygenation. The chest x-ray findings are essentially unchanged. The patient has some limited subcutaneous emphysema in the neck area. There is diffuse bilateral pulmonary infiltrates consistent with community related pneumonia. The patient's d-dimer is at 2.56. The patient also has a LDH level of 595 and a CRP level is at 3.6. The pro calcitonin level is at 0.1 and the patient remains on Decadron. The patient is also on anticoagulation with Eliquis. The patient's receiving enteral feeding for nutritional support. The patient on Jevity which is running at 50 mL an hour. She did have a Dulcolax suppository yesterday and she hasn't had any massive bowel movement.. Urine output is adequate. The rest of the electrolytes showing a sodium of 142, potassium of 4.3, BUN is at 38 and a creatinine is 1.0. The patient's echoes of 13 with a hemoglobin of 12.5. Most recent blood sugar is at 153. 11/16/2021, seeing the patient for a follow-up. Significant events occurred about the night. Mother the patient became progressively more hypoxic and we were at the point where we were unable to improve her oxygenation with a BiPAP machine. At that point, the round 11:30 PM yesterday, it was decided to go to intubate the patient. Intubation process was done by the POWDER ROOM ATTENDANT. Post intubation, the patient remained hypoxic and I did the necessity ventilator changes. I put that on assist-control at the rate of 32, tidal volume of 375, FiO2 of 100% with a PEEP of 16 which ultimately was brought up to 22 acute ongoing hypoxemia. However, at around 4:22 AM, the patient had a episodes of hypotension followed by cardiac pulmonary arrest. She was in a PEA rhythm. The patient received 3 rounds of CPR with epinephrine. A second arrest occurred at 4:50 AM and this lasted for around a few minutes where one round of epinephrine and CPR was given to her with recovery and return of spontaneous circulation. This morning, the patient is intubated on mechanical ventilator. She is sedated with propofol which is currently running at 20 mcg/kg. The patient is also on Nimbex at 1 mcg/kg per minute. She is adequately sedated and paralyzed. She is on normal saline running at the rate of 75 mL an hour. She is on levo fed running at 0.8 mcg/kg per minute and the patient is also on vasopressin physio logic dose of 0.03. Note that post intubation, the patient developed profound hypotension and she had to be started on pressors also. The chest x-ray from today showing diffuse bilateral pulmonary infiltrates in addition to subcutaneous emphysema in the right neck area and pneumomediastinum along the left cardiac border. ET tube is in a good location. The patient's blood gases from this morning shows a pH of 7.08 with a pCO2 of 85 and a pO2 of 50. Her current pulse ox on 78 who 82%. The patient's peak airway pressures around 36. Static pressure is 24. The patient's white cell count is at 39 with a hemoglobin of 11 and a platelet count of 449. Sodium is at 142 with a potassium level of 5.1. BUN is 45 and a creatinine of 1.08. AST is 296, ALT is 142 and alkaline phosphatase is 66. The patient remains on Levemir insulin in those was brought up to 20 units along with NovoLog 10 units 4 times a day and a sliding scale coverage. The patient remains on Decadron 6 mg IV every 24 hours. I'm going to stop the IV Levaquin and has associated this patient to broader antibiotic coverage with IV cefepime. She is sedated and paralyzed. Hemodynamically unstable. Remains on a mechanical ventilator. Obviously prognosis is poor baseline above-mentioned comorbidities. 11/17/2021, the patient is critically ill, intubated on a mechanical ventilator porous-coated 19 related pneumonia with ARDS. This morning, the patient sedated and paralyzed. Propofol is running at 25 mcg/kg per minute and the patient is also on Nimbex at 2 mics of respiratory kilo gram per minute. She is adequately sedated and paralyzed. She continues to be on a mechanical ventilator with permissive hypercapnia. She is assist-control mode of mechanical ventilation at the rate of 32, tidal volumes at 375 mL with a FiO2 of 100% and a PEEP of 22. Peak airway pressures around 42. Static pressures around 40. The blood gases from today shows a pH of 7.09 with a pCO2 of 85 and pO2 of 92. The chest x-ray showing diffuse breath and pulmonary infiltrates. Subcutaneous emphysema in the right neck area. Diffuse bilateral pulmonary infiltrates are present and ET tube is in good location patient has a left subclavian triple-lumen catheter in place. An arterial line was also established yesterday without any major difficulties. At the same time, the patient remains on Decadron. The patient remains in a shock state with hypotension. She was quite hypotensive postintubation and she remained hypotensive for yesterday and today. Note that she is post cardiac arrest 2. Her cardiac rhythm is sinus. Echocardiogram was done and was showing a poor window an adequate assessment of the LV function was not obtained. Meanwhile, the patient remains on norepinephrine infusion and currently norepinephrine is running at a dose of 0.86 mcg/kg per minute and the patient is also on physiologic dose of vasopressin. IV fluids are in the form of half normal saline at the rate of 75 mL an hour. Her antibiotics was broadened and the patient is currently on IV cefepime and Levaquin was discontinued. Meanwhile, the patient is afebrile. The white cell count is currently down to 25 and the rest of the blood work shows a hemoglobin of 10.7 and a platelet count of 316. Rest of the electrolytes showing acute kidney injury. Creatinine is up to 1.8 on today's evaluation with a BUN of 53 and his sodium level of 142 with a potassium level of 5.5. Blood sugar is 191. Nephrology was aware and the patient was given a dose of Lokalma. The patient is also on vital AF which is running at the rate of 40 mL an hour. Her CODE STATUS is DO NOT RESUSCITATE. Family is agree to that. is being updated regularly on her condition which is essentially critical. 11/18/2021, the patient is being seen for a follow-up. A case of COVID 19 related pneumonia with secondary ARDS and respiratory failure. This morning, the patient is sedated with propofol at 25 mcg/kg per minute and Nimbex is still running at 2 mcg/kg per minute. The patient is still on a mechanical ventilator, and we are still in the process of performing low tidal volume ventilation permissive hypercapnia. The respiratory rate is at 32 with a abdomen was 375. FiO2 is down to 60% and a PEEP is at 22. There is improvement in oxygenation. Currently all flex to 95%. Blood gas showed a pH of 7.15 with a pCO2 of 82 and pO2 of 78 and this was on FiO2 of 50%. Meanwhile, the peak airway pressure today's a 38 with acetic acid pressure of 30. The chest x-ray from today showed no major interval change. ET tube is in a good location. The patient had diffuse bilateral pulmonary infiltrates consistent with pneumonia/AR DS. There is evidence of subcutaneous emphysema which is worse compared to yesterday's chest x-ray. This is seen along the right upper chest area, neck area, left neck area, and left chest area. There is no evidence of pneumothorax. ET tube is in a good location. No significant cardiomegaly. O bviously, this is related to pneumonia and barotrauma caused by the mechanical ventilator. At the same time, the patient was quite acidotic. The patient was profoundly hypotensive. Based on that the patient was given IV bicarbonate started on a bicarb drip which is currently running at the rate of 75 mL an hour. Serum bicarbonate was up to 27. The acidosis is somewhat improved which is essentially a respiratory acidosis. The patient currently is still on pressors. Norepinephrine is running at 1 mcg/kg per minute and the patient is also on vasopressin physiologic dose. She was given a total of 4 L of IV fluids yesterday to augment her blood pressure. The mean arterial pressure currently is above 60. Overall fluid balance is at least 10 L positive over the past 24 hours and the patient's urine output is adequate and the order of 10 mL an hour. Sodium level is at 146. Creatinine is slightly improved compared to yesterday with a BUN of 59 and a creatinine of 1.39. The white cell count is at 20.2 with a hemoglobin of 8.2 and a platelet count of 264. Note that her white cell count is also improving. Cultures including urine cultures and blood cultures of been negative. The patient is empirically covered with IV cefepime. Echocardiogram was performed and was suboptimal due to poor window. The cardiac rhythm remains sinus. The patient remains on enteral feeding for nutritional support. The patient is receiving vitamin 1.2 at the rate of 55 mL an hour. She is a no CODE STATUS 11/19/2021, the patient is being seen for a follow-up. On today's evaluation, the patient remains sedated and paralyzed. The patient has shown some limited improvement in the oxygenation. The chest x-ray still showing diffuse but the pulmonary infiltrates along with pneumomediastinum and subcutaneous emphysema. Nevertheless, there is no evidence of any pneumothorax. On today's evaluation, the patient's ventilator setting includes an assist-control mode at the rate of 32 with a tidal volume of 375 with an FiO2 of 50% and a PEEP of 22. Peak airway pressures 38. Static pressure is 36. The blood gases from today shows a pH of 7.26 with a pCO2 of 71 and a pO2 of 67. This was done and FiO2 of 50%. The patient clinically has some subcutaneous emphysema involving over the chest and the neck area. No major interval worsening compared to yesterday. She is afebrile. She remains on Decadron. She is also empirically covered with IV cefepime. Meanwhile, the patient's hemodynamics is improved slightly compared to yesterday. The patient's pressor requirements of become less and the patient is currently on norepinephrine running at 0.5 mcg/kg per minute. She is also on vasopressin physiologic dose. Input output balance over the past 24 hours has been +5.9 L and the patient received significant amount of fluid boluses to optimize her blood pressure. At this point in time, we're the process of weaning down the pressors. Nevertheless, there has been a drop in hemoglobin down to 6.7 and this could be essentially dilutional due to aggressive fluid resuscitation. The patient was also on a bicarb infusion. Serum bicarb level is up to 31. The bicarb infusion will be discontinued today. As mentioned, the most recent pH is at 7.26 with a pCO2 of 71 and pO2 of 67. The white count was at 16.3 with a hemoglobin of 6.7 and a platelet count of 206. Patient is leaving enteral feeding for nutritional support. The patient is currently on vital AF at the rate of 55 mL an hour. Bowel movement activity has not been reported yet and we are going to facilitate that with some laxatives. The patient is also receiving free water flushes 300 mL every 4 hours through her NG tube. CODE STATUS is DO NOT RESUSCITATE. 11/20/2021, the patient is being seen for a follow-up in the intensive care unit for COVID 19 related pneumonia/ARDS and respiratory complications related to COVID 19 infection.. The patient is on propofol which is running at 55 mcg/kg per minute. The patient is currently off Nimbex. The patient was taken off Nimbex yesterday and the patient remains quite synchronous and still on a mechanical ventilator. There has been no signs of any neurologic recovery at this point in time. The patient remains completely unresponsive. The patient u nderwent a CAT scan of the brain yesterday that showed no acute abnormalities. The patient remains on assist-control mode of mechanical ventilation and the patient is currently on assist-control at the rate of 32, tidal volume of 375, FiO2 is at 60% with a PEEP of 22. Peak airway pressure is 38. Chest x-ray showed diffuse bilateral pulmonary infiltrates along with that there is subcutaneous emphysema extensively in the anterior chest on the neck area. No major change in the x-ray findings. Blood gases from today shows a pH of 7.29 with a pCO2 of 69 and pO2 of 56. The patient's acidosis is improved as the patient was given bicarb infusion. The pH is improved. Pressor requirements have also improved and the patient is on levo fed 0.2 mics respiratory per minute and the patient is on a physiologic dose of vasopressin at 0.03 units an hour. The patient is developing significant amount of third spacing and on today's labs the patient is a component of hypo-or uremic hypernatremia. The patient was started on D5 water at the rate of 60 mL an hour and the patient is also receiving free water through the NG replaced the free water deficit. Input output balance over the past 24 hours is positive for 0.6 L. The patient's sodium is at 150 with a potassium level of 3.4 and a BUN of 61 and a creatinine of 1.08. The white cell count is at 40 with a hemoglobin of 8.1. The patient remains on vital high protein at the rate of 55 mL an hour. She is afebrile. Pressor requirements are less. DNR/DNI CODE STATUS. Remains on Decadron. Objective - Vital Signs Vital signs: Vital Signs Temp 99.2 F 11/20/21 08:00 Pulse 92 11/20/21 11:00 Resp 40 H 11/20/21 11:00 BP 100/57 11/20/21 11:00 Pulse Ox 89 L 11/20/21 11:00 FiO2 60 11/20/21 10:56 Intake & Output 11/19/21 11/20/21 11/20/21 18:59 06:59 18:59 Intake Total 2506.666 2305.924 1192.365 Output Total 1465 1235 1400 Balance 3377.220 8502.924 -207.635 Weight 107.2 kg Intake: IV 525 340 380 Cefepime 2 gm In Sodium 100 100 100 Chloride 0.9% 100 ml @ 25 mls/hr IVPB Q12HR DENISSE Rx #:[id number] D5W 180 Dextrose 5% in Water 1, 225 000 ml @ 75 mls/hr IV . [id number] DENISSE with Sodium Bicarb (1 Meq/ml) 150 ml Rx#:[id number] Sodium Chloride 0.9 200 240 100 Intake, IV Titration 411.666 405.924 137.365 Amount Cisatracurium 200 mg In 40.608 Sodium Chloride 0.9% 180 ml @ 1 MCG/KG/MIN 5.184 mls/hr IV .Q24H DENISSE Rx#: [id number] Insulin Regular 100 unit 30.771 26.360 19.257 In Sodium Chloride 0.9% 100 ml @ Per Protocol IV .Q0M DENISSE Rx#:[id number] Norepinephrine 32 mg In 145.247 79.772 Sodium Chloride 0.9% 218 ml @ 0.84 MCG/KG/MIN 34. 02 mls/hr IV .Q7H21M DENISSE Rx#:[id number] propofoL 1,000 mg In 195.040 299.792 118.108 Empty Bag 1 bag @ 5 MCG/ KG/MIN 2.592 mls/hr IV . Q24H DENISSE Rx#:[id number] Oral 900 Tube Feeding 660 660 275 Blood Product 310 Rc As-1 Unit 310 [id number] Rc As-1 Unit 0 [id number] Other 600 400 Output: Urine 1465 1235 1400 Other: Voiding Method Indwelling Catheter Indwelling Catheter Indwelling Catheter ABP, PAP, CO, CI - Last Documented Arterial Blood Pressure 103/50 - Exam Gen. appearance the patient is calm and comfortable sedated intubated on a [facility] anical ventilator. The patient sedated and the patient is currently off paralytics Orotracheal and orogastric tube are both in place. HEENT examination is grossly unremarkable. The patient has evidence of subcutaneous emphysema along the right neck area. Neck supple. Full range of motion. No adenopathy thyromegaly or neck vein distention. Subcutaneous emphysema along the right neck Cardiovascular examination reveals regular rhythm rate. S1-S2 normal. No S3 or S4. No discernible murmur noted. Heart sounds are distant. Lungs reveal scattered bilateral rhonchi and crackles. Breath sounds equal. No wheezes. The breath sounds are overall diminished, there is evidence of subcu insulin emphysema to the neck and the chest area. Abdominal exam revealed normal bowel sounds. The abdomen was soft, non-tender, and without masses, organomegaly, or appreciable enlargement of the abdominal aorta. Extremities are intact. No cyanosis clubbing or edema. Skin is without rash or lesion. The patient has a triple-lumen catheter in her left subclavian and the patient also has a left arterial radial line. Neurologic examination is difficult to assess. As the patient is currently sedated and off paralytics and the patient is unresponsive. Pupils are 2-3 mm in size, sluggishly reactive to light. Motor function cannot be assessed.. - Labs CBC & Chem 7: 11/20/21 04:55 11/20/21 04:55 Labs: Abnormal Lab Results - Last 24 Hours (Table) 11/19/21 11/19/21 11/19/21 Range/Units 13:04 15:47 17:43 WBC (3.8-10.6) k/uL RBC (3.80-5.40) m/uL Hgb (11.4-16.0) gm/dL Hct (34.0-46.0) % MCHC (31.0-37.0) g/dL RDW (11.5-15.5) % ABG pH (7.35-7.45) ABG pCO2 (35-45) mmHg ABG pO2 (83-108) mmHg ABG HCO3 (21-25) mmol/L ABG Total CO2 (19-24) mmol/L ABG O2 Saturation (94-97) % Sodium (137-145) mmol/L Potassium (3.5-5.1) mmol/L Chloride (98-107) mmol/L Carbon Dioxide (22-30) mmol/L BUN (7-17) mg/dL Creatinine (0.52-1.04) mg/dL Glucose (74-99) mg/dL POC Glucose (mg/dL) 151 H 136 H 192 H (70-110) mg/dL Calcium (8.4-10.2) mg/dL 11/19/21 11/19/21 11/19/21 Range/Units 18:18 18:50 18:59 WBC 15.2 H (3.8-10.6) k/uL RBC 3.12 L (3.80-5.40) m/uL Hgb 8.5 L D (11.4-16.0) gm/dL Hct 27.4 L (34.0-46.0) % MCHC 30.9 L (31.0-37.0) g/dL RDW 16.2 H (11.5-15.5) % ABG pH (7.35-7.45) ABG pCO2 (35-45) mmHg ABG pO2 (83-108) mmHg ABG HCO3 (21-25) mmol/L ABG Total CO2 (19-24) mmol/L ABG O2 Saturation (94-97) % Sodium (137-145) mmol/L Potassium (3.5-5.1) mmol/L Chloride (98-107) mmol/L Carbon Dioxide (22-30) mmol/L BUN (7-17) mg/dL Creatinine (0.52-1.04) mg/dL Glucose (74-99) mg/dL POC Glucose (mg/dL) 191 H 202 H (70-110) mg/dL Calcium (8.4-10.2) mg/dL 11/19/21 11/19/21 11/19/21 Range/Units 20:26 21:55 22:40 WBC (3.8-10.6) k/uL RBC (3.80-5.40) m/uL Hgb (11.4-16.0) gm/dL Hct (34.0-46.0) % MCHC (31.0-37.0) g/dL RDW (11.5-15.5) % ABG pH (7.35-7.45) ABG pCO2 (35-45) mmHg ABG pO2 (83-108) mmHg ABG HCO3 (21-25) mmol/L ABG Total CO2 (19-24) mmol/L ABG O2 Saturation (94-97) % Sodium (137-145) mmol/L Potassium (3.5-5.1) mmol/L Chloride (98-107) mmol/L Carbon Dioxide (22-30) mmol/L BUN (7-17) mg/dL Creatinine (0.52-1.04) mg/dL Glucose (74-99) mg/dL POC Glucose (mg/dL) 186 H 138 H 126 H (70-110) mg/dL Calcium (8.4-10.2) mg/dL 11/19/21 11/20/21 11/20/21 Range/Units 23:31 01:52 03:10 WBC (3.8-10.6) k/uL RBC (3.80-5.40) m/uL Hgb (11.4-16.0) gm/dL Hct (34.0-46.0) % MCHC (31.0-37.0) g/dL RDW (11.5-15.5) % ABG pH (7.35-7.45) ABG pCO2 (35-45) mmHg ABG pO2 (83-108) mmHg ABG HCO3 (21-25) mmol/L ABG Total CO2 (19-24) mmol/L ABG O2 Saturation (94-97) % Sodium (137-145) mmol/L Potassium (3.5-5.1) mmol/L Chloride (98-107) mmol/L Carbon Dioxide (22-30) mmol/L BUN (7-17) mg/dL Creatinine (0.52-1.04) mg/dL Glucose (74-99) mg/dL POC Glucose (mg/dL) 157 H 132 H 153 H (70-110) mg/dL Calcium (8.4-10.2) mg/dL 11/20/21 11/20/21 11/20/21 Range/Units 04:55 04:55 04:57 WBC 14.0 H (3.8-10.6) k/uL RBC 2.90 L (3.80-5.40) m/uL Hgb 8.1 L (11.4-16.0) gm/dL Hct 25.2 L (34.0-46.0) % MCHC (31.0-37.0) g/dL RDW 16.2 H (11.5-15.5) % ABG pH (7.35-7.45) ABG pCO2 (35-45) mmHg ABG pO2 (83-108) mmHg ABG HCO3 (21-25) mmol/L ABG Total CO2 (19-24) mmol/L ABG O2 Saturation (94-97) % Sodium 150 H (137-145) mmol/L Potassium 3.4 L (3.5-5.1) mmol/L Chloride 115 H (98-107) mmol/L Carbon Dioxide 33 H (22-30) mmol/L BUN 61 H (7-17) mg/dL Creatinine 1.09 H (0.52-1.04) mg/dL Glucose 172 H (74-99) mg/dL POC Glucose (mg/dL) 189 H (70-110) mg/dL Calcium 8.3 L (8.4-10.2) mg/dL 11/20/21 11/20/21 11/20/21 Range/Units 05:05 06:07 07:06 WBC (3.8-10.6) k/uL RBC (3.80-5.40) m/uL Hgb (11.4-16.0) gm/dL Hct (34.0-46.0) % MCHC (31.0-37.0) g/dL RDW (11.5-15.5) % ABG pH 7.29 L (7.35-7.45) ABG pCO2 69 H (35-45) mmHg ABG pO2 56 L* (83-108) mmHg ABG HCO3 33 H (21-25) mmol/L ABG Total CO2 35 H (19-24) mmol/L ABG O2 Saturation 90.1 L (94-97) % Sodium (137-145) mmol/L Potassium (3.5-5.1) mmol/L Chloride (98-107) mmol/L Carbon Dioxide (22-30) mmol/L BUN (7-17) mg/dL Creatinine (0.52-1.04) mg/dL Glucose (74-99) mg/dL POC Glucose (mg/dL) 168 H 157 H (70-110) mg/dL Calcium (8.4-10.2) mg/dL 11/20/21 11/20/2111/20/22 Range/Units 07:58 09:08 09:56 WBC (3.8-10.6) k/uL RBC (3.80-5.40) m/uL Hgb (11.4-16.0) gm/dL Hct (34.0-46.0) % MCHC (31.0-37.0) g/dL RDW (11.5-15.5) % ABG pH (7.35-7.45) ABG pCO2 (35-45) mmHg ABG pO2 (83-108) mmHg ABG HCO3 (21-25) mmol/L ABG Total CO2 (19-24) mmol/L ABG O2 Saturation (94-97) % Sodium (137-145) mmol/L Potassium (3.5-5.1) mmol/L Chloride (98-107) mmol/L Carbon Dioxide (22-30) mmol/L BUN (7-17) mg/dL Creatinine (0.52-1.04) mg/dL Glucose (74-99) mg/dL POC Glucose (mg/dL) 172 H 189 H 188 H (70-110) mg/dL Calcium (8.4-10.2) mg/dL 11/20/21 11/20/21 Range/Units 11:00 12:04 WBC (3.8-10.6) k/uL RBC (3.80-5.40) m/uL Hgb (11.4-16.0) gm/dL Hct (34.0-46.0) % MCHC (31.0-37.0) g/dL RDW (11.5-15.5) % ABG pH (7.35-7.45) ABG pCO2 (35-45) mmHg ABG pO2 (83-108) mmHg ABG HCO3 (21-25) mmol/L ABG Total CO2 (19-24) mmol/L ABG O2 Saturation (94-97) % Sodium (137-145) mmol/L Potassium (3.5-5.1) mmol/L Chloride (98-107) mmol/L Carbon Dioxide (22-30) mmol/L BUN (7-17) mg/dL Creatinine (0.52-1.04) mg/dL Glucose (74-99) mg/dL POC Glucose (mg/dL) 199 H 188 H (70-110) mg/dL Calcium (8.4-10.2) mg/dL Microbiology - Last 24 Hours (Table) 11/16/21 12:02 Blood Culture - Preliminary Blood No Growth after 72 hours 11/16/21 12:02 Blood Culture - Preliminary Blood No Growth after 72 hours Assessment and Plan Plan: Acute hypoxemic respiratory failure secondary to COVID 19 related pneumonia/ARDS, intubated on a mechanical ventilator, sedated and paralyzed, currently on low tidal volume mechanical ventilation with permissive hypercapnia. There is worsening in the subcutaneous emphysema bilaterally. The patient is receiving permissive hypercapnia, low tidal volume ventilation. Chest x-ray was noted. Blood gases was noted. The patient is having adequate oxygenation for now. The patient continues to have normal mediastinum and subcutaneous emphysema extending to the neck area. Peak and static pressures are both elevated. The patient was given permissive hypercapnia and bicarb infusion and most recent acid base status has improved. No major changes in her condition. The patient on a bicarb infusion and the patient's acid base status is improved and her bicarb infusion was subsequently discontinued and the patient is currently on D5 water to replace the free water deficit. Chest x-ray findings unchanged. Oxidation is unchanged compared to yesterday. The patient is off paralytics and the patient initially sedated with propofol. Acute hypotension, under investigation. Currently on a combination of norepinephrine infusion and vasopressin physiologic dose. Blood pressure is stable for now on a combination of norepinephrine infusion and vasopressin. The patient was aggressively resuscitated IV fluids. The urine output is adequate. The pressor doses are being gradually weaned off and the patient is currently on norepinephrine at 0.2 micrograms per kilogram per minute. Acute cardio pulmonary arrest, probably related to severe hypoxemia/hypotension. The patient had cardiac arrest 2 requiring CPR and epinephrine and the patient had return of spontaneous circulation. Currently on pressors. The pressor requirements have been unchanged compared to yesterday History of recent coronavirus infection, 10/28/2021, [facility] Acute mental status changes prior to intubation mechanical ventilation, presumably secondary to infection. The patient is currently on propofol, intubated on mechanical ventilator and sedated and paralyzed. Acute kidney injury in the creatinine is improving and is normalizing Metabolic acidosis a combination of anion and non-anion gap type addition to a combination of metabolic and respiratory acidosis. Respiratory acidosis due to permissive hypercapnia. EN for nutritional support History of hypertension. History of hyperlipidemia. History of diabetes mellitus, blood sugar controled with insulin drip @4 U/HR History of hypothyroidism. History of schizophrenia. Prior history of tobacco use. History of heavy alcohol use. History of marijuana use. Acute leukocytosis on that investigation, improving Anemia, with acute drop in hemoglobin 8.1, stable Plan Condition is still critical Continue ventilator support and necessity ventilator changes will be done. Keep the patient off paralytics Continue sedation with propofol, give the patient sedation holiday visits underlying mental status Continue D5 water and monitor the sodium level Free water through the NG Monitor sodium level Continue Decadron Continue IV cefepime 2 g every 12 hours Monitor pneumomediastinum and subcutaneous emphysema in the neck area and the chest area Enteral feeding for nutritional support Laxatives to facilitate bowel movements Acid base status was noted in the pH is improved Continue insulin drip at 4 units an hour Very critical condition. We'll try to change the CODE STATUS to DO NOT RESUSCITATE after having a discussion with the . Overall condition unchanged This is a critically care evaluation was done and more than 30 minutes. Time with Patient: Greater than 30
--- NOTE | 2021-11-20 12:48 | P.PN ---
Subjective Progress Note Date: 11/20/21 The patient is seen at bedside per nurse patient continues to have significant respiratory issues. She has been requiring high PEEP for her respiratory issues. She has significant emphysema. She continues to be intubated on ventilator. She is on IV Propofol 55mcg/kg/min and once the ICU team tried titrating down she was tachypneic breathing in the 50's. Objective - Vital Signs Vital signs: Vital Signs Temp 99.2 F 11/20/21 08:00 Pulse 92 11/20/21 11:00 Resp 40 H 11/20/21 11:00 BP 100/57 11/20/21 11:00 Pulse Ox 89 L 11/20/21 11:00 FiO2 60 11/20/21 10:56 Intake & Output 11/19/21 11/20/21 11/20/21 18:59 06:59 18:59 Intake Total 2506.666 2305.924 1233.707 Output Total 1465 1235 1400 Balance 5152.047 3113.924 -166.293 Weight 107.2 kg Intake: IV 525 340 380 Cefepime 2 gm In Sodium 100 100 100 Chloride 0.9% 100 ml @ 25 mls/hr IVPB Q12HR [facility] Rx #:[id number] D5W 180 Dextrose 5% in Water 1, 225 000 ml @ 75 mls/hr IV . [id number] DENISSE with Sodium Bicarb (1 Meq/ml) 150 ml Rx#:[id number] Sodium Chloride 0.9 200 240 100 Intake, IV Titration 411.666 405.924 178.707 Amount Cisatracurium 200 mg In 40.608 Sodium Chloride 0.9% 180 ml @ 1 MCG/KG/MIN 5.184 mls/hr IV .Q24H [facility] Rx#: [id number] Insulin Regular 100 unit 30.771 26.360 19.257 In Sodium Chloride 0.9% 100 ml @ Per Protocol IV .Q0M [facility] Rx#:[id number] Norepinephrine 32 mg In 145.247 79.772 Sodium Chloride 0.9% 218 ml @ 0.84 MCG/KG/MIN 34. 02 mls/hr IV .Q7H21M [facility] Rx#:[id number] propofoL 1,000 mg In 195.040 299.792 159.450 Empty Bag 1 bag @ 5 MCG/ KG/MIN 2.592 mls/hr IV . Q24H [facility] Rx#:[id number] Oral 900 Tube Feeding 660 660 275 Blood Product 310 Rc As-1 Unit 310 [id number] Rc As-1 Unit 0 [id number] Other 600 400 Output: Urine 1465 1235 1400 Other: Voiding Method Indwelling Catheter Indwelling Catheter Indwelling Catheter ABP, PAP, CO, CI - Last Documented Arterial Blood Pressure 103/50 - Exam GENERAL: The patient is lying in bed and does not seem in acute distress.. LUNG: Intubated on vent and requiring high PEEP of 22. EXTREMITIES: Has crackling sensation on palpation of bilateral uppers (left > right). NEUROLOGICAL: Limited. IV Propofol 55mcg/kg/min Higher mental function: Is comatose. Cranial nerves:Pupils are pinpoint and no reactive to light. Has intact corneal reflex bilaterally. No facial weakness. Has weak gag reflex. Is not breathing over vent. Grimaces face to suctioning. r Motor: Unable to asssess. Cerebellum: Unable to assess. Sensation: Unable to assess. - Labs CBC & Chem 7: 11/20/21 04:55 11/20/21 04:55 Labs: Abnormal Lab Results - Last 24 Hours (Table) 11/19/21 11/19/21 11/19/21 Range/Units 13:04 15:47 17:43 WBC (3.8-10.6) k/uL RBC (3.80-5.40) m/uL Hgb (11.4-16.0) gm/dL Hct (34.0-46.0) % MCHC (31.0-37.0) g/dL RDW (11.5-15.5) % ABG pH (7.35-7.45) ABG pCO2 (35-45) mmHg ABG pO2 (83-108) mmHg ABG HCO3 (21-25) mmol/L ABG Total CO2 (19-24) mmol/L ABG O2 Saturation (94-97) % Sodium (137-145) mmol/L Potassium (3.5-5.1) mmol/L Chloride (98-107) mmol/L Carbon Dioxide (22-30) mmol/L BUN (7-17) mg/dL Creatinine (0.52-1.04) mg/dL Glucose (74-99) mg/dL POC Glucose (mg/dL) 151 H 136 H 192 H (70-110) mg/dL Calcium (8.4-10.2) mg/dL 11/19/21 11/19/21 11/19/21 Range/Units 18:18 18:50 18:59 WBC 15.2 H (3.8-10.6) k/uL RBC 3.12 L (3.80-5.40) m/uL Hgb 8.5 L D (11.4-16.0) gm/dL Hct 27.4 L (34.0-46.0) % MCHC 30.9 L (31.0-37.0) g/dL RDW 16.2 H (11.5-15.5) % ABG pH (7.35-7.45) ABG pCO2 (35-45) mmHg ABG pO2 (83-108) mmHg ABG HCO3 (21-25) mmol/L ABG Total CO2 (19-24) mmol/L ABG O2 Saturation (94-97) % Sodium (137-145) mmol/L Potassium (3.5-5.1) mmol/L Chloride (98-107) mmol/L Carbon Dioxide (22-30) mmol/L BUN (7-17) mg/dL Creatinine (0.52-1.04) mg/dL Glucose (74-99) mg/dL POC Glucose (mg/dL) 191 H 202 H (70-110) mg/dL Calcium (8.4-10.2) mg/dL 11/19/21 11/19/21 11/19/21 Range/Units 20:26 21:55 22:40 WBC (3.8-10.6) k/uL RBC (3.80-5.40) m/uL Hgb (11.4-16.0) gm/dL Hct (34.0-46.0) % MCHC (31.0-37.0) g/dL RDW (11.5-15.5) % ABG pH (7.35-7.45) ABG pCO2 (35-45) mmHg ABG pO2 (83-108) mmHg ABG HCO3 (21-25) mmol/L ABG Total CO2 (19-24) mmol/L ABG O2 Saturation (94-97) % Sodium (137-145) mmol/L Potassium (3.5-5.1) mmol/L Chloride (98-107) mmol/L Carbon Dioxide (22-30) mmol/L BUN (7-17) mg/dL Creatinine (0.52-1.04) mg/dL Glucose (74-99) mg/dL POC Glucose (mg/dL) 186 H 138 H 126 H (70-110) mg/dL Calcium (8.4-10.2) mg/dL 11/19/21 11/20/21 11/20/21 Range/Units 23:31 01:52 03:10 WBC (3.8-10.6) k/uL RBC (3.80-5.40) m/uL Hgb (11.4-16.0) gm/dL Hct (34.0-46.0) % MCHC (31.0-37.0) g/dL RDW (11.5-15.5) % ABG pH (7.35-7.45) ABG pCO2 (35-45) mmHg ABG pO2 (83-108) mmHg ABG HCO3 (21-25) mmol/L ABG Total CO2 (19-24) mmol/L ABG O2 Saturation (94-97) % Sodium (137-145) mmol/L Potassium (3.5-5.1) mmol/L Chloride (98-107) mmol/L Carbon Dioxide (22-30) mmol/L BUN (7-17) mg/dL Creatinine (0.52-1.04) mg/dL Glucose (74-99) mg/dL POC Glucose (mg/dL) 157 H 132 H 153 H (70-110) mg/dL Calcium (8.4-10.2) mg/dL 11/20/21 11/20/21 11/20/21 Range/Units 04:55 04:55 04:57 WBC 14.0 H (3.8-10.6) k/uL RBC 2.90 L (3.80-5.40) m/uL Hgb 8.1 L (11.4-16.0) gm/dL Hct 25.2 L (34.0-46.0) % MCHC (31.0-37.0) g/dL RDW 16.2 H (11.5-15.5) % ABG pH (7.35-7.45) ABG pCO2 (35-45) mmHg ABG pO2 (83-108) mmHg ABG HCO3 (21-25) mmol/L ABG Total CO2 (19-24) mmol/L ABG O2 Saturation (94-97) % Sodium 150 H (137-145) mmol/L Potassium 3.4 L (3.5-5.1) mmol/L Chloride 115 H (98-107) mmol/L Carbon Dioxide 33 H (22-30) mmol/L BUN 61 H (7-17) mg/dL Creatinine 1.09 H (0.52-1.04) mg/dL Glucose 172 H (74-99) mg/dL POC Glucose (mg/dL) 189 H (70-110) mg/dL Calcium 8.3 L (8.4-10.2) mg/dL 11/20/21 11/20/21 11/20/21 Range/Units 05:05 06:07 07:06 WBC (3.8-10.6) k/uL RBC (3.80-5.40) m/uL Hgb (11.4-16.0) gm/dL Hct (34.0-46.0) % MCHC (31.0-37.0) g/dL RDW (11.5-15.5) % ABG pH 7.29 L (7.35-7.45) ABG pCO2 69 H (35-45) mmHg ABG pO2 56 L* (83-108) mmHg ABG HCO3 33 H (21-25) mmol/L ABG Total CO2 35 H (19-24) mmol/L ABG O2 Saturation 90.1 L (94-97) % Sodium (137-145) mmol/L Potassium (3.5-5.1) mmol/L Chloride (98-107) mmol/L Carbon Dioxide (22-30) mmol/L BUN (7-17) mg/dL Creatinine (0.52-1.04) mg/dL Glucose (74-99) mg/dL POC Glucose (mg/dL) 168 H 157 H (70-110) mg/dL Calcium (8.4-10.2) mg/dL 11/20/21 11/20/21 11/20/21 Range/Units 07:58 09:08 09:56 WBC (3.8-10.6) k/uL RBC (3.80-5.40) m/uL Hgb (11.4-16.0) gm/dL Hct (34.0-46.0) % MCHC (31.0-37.0) g/dL RDW (11.5-15.5) % ABG pH (7.35-7.45) ABG pCO2 (35-45) mmHg ABG pO2 (83-108) mmHg ABG HCO3 (21-25) mmol/L ABG Total CO2 (19-24) mmol/L ABG O2 Saturation (94-97) % Sodium (137-145) mmol/L Potassium (3.5-5.1) mmol/L Chloride (98-107) mmol/L Carbon Dioxide (22-30) mmol/L BUN (7-17) mg/dL Creatinine (0.52-1.04) mg/dL Glucose (74-99) mg/dL POC Glucose (mg/dL) 172 H 189 H 188 H (70-110) mg/dL Calcium (8.4-10.2) mg/dL 11/20/21 11/20/21 Range/Units 11:00 12:04 WBC (3.8-10.6) k/uL RBC (3.80-5.40) m/uL Hgb (11.4-16.0) gm/dL Hct (34.0-46.0) % MCHC (31.0-37.0) g/dL RDW (11.5-15.5) % ABG pH (7.35-7.45) ABG pCO2 (35-45) mmHg ABG pO2 (83-108) mmHg ABG HCO3 (21-25) mmol/L ABG Total CO2 (19-24) mmol/L ABG O2 Saturation (94-97) % Sodium (137-145) mmol/L Potassium (3.5-5.1) mmol/L Chloride (98-107) mmol/L Carbon Dioxide (22-30) mmol/L BUN (7-17) mg/dL Creatinine (0.52-1.04) mg/dL Glucose (74-99) mg/dL POC Glucose (mg/dL) 199 H 188 H (70-110) mg/dL Calcium (8.4-10.2) mg/dL Microbiology - Last 24 Hours (Table) 11/16/21 12:02 Blood Culture - Preliminary Blood No Growth after 72 hours 11/16/21 12:02 Blood Culture - Preliminary Blood No Growth after 72 hours Assessment and Plan Assessment: Encephalopathy seems due to multifactorial: Predominately hypoxic encephalopathy due to COVID-19 pneumonia. Also component of metabolic encephalopathy (hypernatremia, JAYLA). Encephalopathy also due to medication effect (IV Propofol). Status post cardiac arrest with downtime of 10 minutes. Probable anoxic encephalopathy superimposed on pre-existing metabolic encephalopathy Significant Emphysema History of seizure and she had a seizure about 6-8 years ago (arnol brown) while ?reported GTC on 03/15/2021 (but her 2.5 hour EEG and routine EEG was negative for seizure or epileptiform discharges) Acute hypoxemic respiratory failure secondary due to pneumonia Acute hypernatremia--resolved JAYLA--resolved Recent [place] virus infection History of diabetes History of hyperthyroid Schizoaffective disorder Primary history of tobacco use History of heavy alcohol use History of marijuana use Plan: * EEG was performed, which was abnormal due to background slowing of moderate to severe degree. This is suggestive of generalized cerebral dysfunction, as can be seen with toxic metabolic encephalopathy or due to diffuse structural brain abnormality. Clinical correlation recommended. No epileptiform activity was seen. * CT head repeat on 11/19/2021: It is reported as no acute intracranial process. Subcutaneous emphysema tracking into the skull base myofascial planes. Of note during this hospital stay patient has significant respiratory issues and has emphysema. The ICU team is modifying her that setting. * I will get repeat CT head tomorrow to assess if worsening of emphysematous changes in brain. * Patient is on Eliquis, also on aspirin 81 mg and Lipitor 40 mg daily. * Nephrology team is on board * We'll defer the rest of the medical management to the primary and ICU team * Prognosis is poor. * Patient is NO CODE. * Discussed with her sister (who is at bedside) and spoke with her in detailed. She stated she will speak with patient's and her patient's [id number] who are the guardian. Breezy Orozco M.D. Neuro-Hospitalist Time with Patient: Greater than 30
[2021-11-20 12:51] LABS: Glucose,Whole Blood 195 mg/dL (70-110)
[2021-11-20 14:02] LABS: Glucose,Whole Blood 185 mg/dL (70-110)
[2021-11-20 14:57] LABS: Glucose,Whole Blood 170 mg/dL (70-110)
--- NOTE | 2021-11-20 15:25 | P.PN ---
Progress Note - Text Progress Note Date: 11/20/21 Chief Complaint: Decreased mentation History of presenting complaint: This is a 50-year-old patient, who follows with Dr. Saenz . Resident of [facility] of [place].. known history of bipolar disorder and schizophrenia. 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 Patient was here in May 2021. Severe hypernatremia, acute kidney injury metabolic encephalopathy. 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 Low-dose and high-dose dexamethasone test was put on telemetry specific. Does of Synthroid was increased. Patient now brought in from [facility]. Patient was diagnosed with COVID 19 a few days ago. Was on Paxil of it. Patient became increasingly lethargic. Patient is felt to secondary bacterial pneumonia. Given Levaquin and transferred here. Also noted. Significantly hypernatremic. Patient admitted to ICU. Consultation is made to rcp, nephrology, psychiatry, neurology. This morning patient int ICU. On a Precedex drip. BiPAP. Lethargic. Not able to give any history. Admitted with COVID 19 pneumonitis, hypoxia, possibly secondary bacterial pneumonia, severe hyponatremia, severe metabolic encephalopathy, acute kidney injury. On IV Precedex. IV fluids. Levaquin. EEG. November 08: ICU: On BiPAP 12/5. IV Precedex. Lethargic. IV Levaquin. Oral bicarbonate. Medications through NG tube. EEG pending. November 09: ICU: On BiPAP 12/5. Off Precedex. Remains lethargic a bit restless. November 10: ICU: On BiPAP 12. Remains on Precedex. IV fluids. Sinus rhythm. Remains encephalopathic/delirious. 11/14/2021 Sonny Rubin feels better today, he does not feel dizziness while he is lying in bed all the time. He still have low appetite but no chest pain or dyspnea, no abdominal pain. He still complaining from pain in his legs and he has right leg DVT been on Lovenox with plan to switch him to heparin drip on today as he got midline Blood pressure is 87/56, heart rate 120, sodium is 121 On admission his sodium was still low and was started on D5 normal saline at 100 mL/h however after initial improvement sodium dropped to 121 yesterday so we held his IV fluid and the evening sodium improved 124 (no iv lasix given), however this morning is 121 again. We send urine studies and I'll consult ne phrologist. Also patient has negative CTPA for pulmonary embolism but CT of the abdomen and pelvis showing possible gallbladder fossa abscess or complex fluid collection although it is improved from previous 5 cm down to 2.7 centimeters. The recommended liver ultrasound versus MRI, ultrasound shows the same findings. Also surgery due on the case 11/15/2021 Last night his blood pressure dropped with systolic and 50s, there was a rapid response a team response and he was as stated with IV fluids aggressively, his blood pressure improved in 90s this morning and during the round he was awake an d alert looks tired but is appropriate. Sodium was 121 and then 119. He denied any chest pain or abdominal pain, no other complaints clinically. His losing from his puncture wound in the right lower abdomen was a stopped, he was started on heparin drip per recommendation of research group director. After once by the evening time his blood pressure dropped again was 53/32 with altered mental status, there was another rapid response where patient was transferred to the ICU and levophed was started and his mentation started to improve again. Patient was started also on antibiotic empirically with Zosyn and IV vancomycin total infection ruled out completely as there is still high suspicion, with possible sources including the pressure wound sacral ulcer in the lower back, and less likely the gallbladder bed and fossa with 2.7 cm fluid collection (felt less likely because actually it decreased in size from 5.0 cm previously) After transfer patient and at bedside opted for the DO NOT RESUSCITATE order as per bedside nurse. 11/16/2021 Yesterday patient was still deteriorating, however today patient turned around and start improving patient remains in the ICU he needs to pressors we will fit and vasopressin, lactic acid trending up 6.4. Patient mentation is also deteriorated and become more confused and less responsive. His creatinine remains around 1 although he has low urine output. Patient is resuscitated with many fluids and also his broad-spectrum antibiotics with IV vancomycin and Zosyn, as septic shock is highly suspected is the cause of the patient profound hypotension and shock state. Although other factors might be contributing to it. Because of this we started the patient on hydrocortisone to increase the sensitivity of the adrenergic receptors to the catecholamine. Also replacing electrolytes including calcium and magnesium. Sodium slightly trending up. Patient remains in critical condition. Family at bedside 11/17/2021 Patient today workup and he was awake alert and oriented 3, he follows commands, he feels hungry and actually he started tolerating diet for the first time after several months. He denies any respiratory symptoms, his abdomen looks benign, no other new complaints. Blood pressure is improving and he required less pressors, currently blood pressure is 87/61, is less tachycardic around 110. He is currently on levophed 0.03 which is decreased from yesterday. Last night we added hydrocortisone 100 mg 3 times a day as a replacement therapy but to support blood pressure and increased sensitivity of levophed to its adrenergic receptors. Since blood pressure improvement with lower dose to 50 mg today, possibly we will discontinue it in one or 2 days once blood pressure keep improvement. Also patient receiving fluids. Labs looks stable, hemoglobin 9.8, sodium 126 he remains on Zosyn, vancomycin was discontinued. He remains on Zosyn. Anticoagulation is switched to Eliquis therapeutic dose at 10 mg which could be switched to 5 mg on 11/27. Prognosis remains guarded 11/18/2021 Patient is awake but drowsy, His blood pressure is improving but he still on pressors although is requiring less amount He has poor urine output but creatinine is around 1.1. His GFR is 66. He is going to receive 1 dose of Lasix 80 mg today. Also significant sodium bicarb and albumin infusion. He remains on Zosyn Anticoagulation with Eliquis Patient was seen and covered by [facility] from November 14 through November 18. 11/19/2021: I resumed care of patient today ICU: Ventilated intubated. FiO2 50 and a PEEP of 22. Telemetry sinus rhythm. Drips include norepinephrine, propofol, insulin, vasopressin. Nimbex was discontinued earlier today. Receiving a unit of blood. 2 feeding at 55 mL an hour. Bicarbonate infusion discontinued earlier. NG tube. 11/20/2021: ICU: On the ventilator. Intubated. FiO2 16 a PEEP of 22. Drips include vasopressin, levo fed, propofol, insulin. 2 feeding at 55 mL an hour. Telemetry shows sinus rhythm. His sed rate. Spoke to the sister at the bedside. Sedation holiday was tried. Patient became agitated. Active Medications Apixaban (Apixaban 5 Mg Tab) 5 mg PO BID [facility]; Protocol Last Admin: 11/20/21 08:14 Dose: 5 mg Artificial Tears (Artificial Tears-Hypromellose Drops 15 Ml Btl) 1 drops BOTH EYES Q4HR [facility] Last Admin: 11/20/21 12:06 Dose: 1 drops Aspirin (Aspirin 81 Mg) 81 mg PO DAILY@0900 [facility] Last Admin: 11/20/21 08:14 Dose: 81 mg Atorvastatin Calcium (Atorvastatin 40 Mg Tab) 40 mg PO HS@2100 [facility] Last Admin: 11/19/21 21:39 Dose: 40 mg Chlorhexidine Gluconate (Chlorhexidine Gluconate 15 Ml Cup) 15 ml MUCOUS MEM BID [facility] Last Admin: 11/20/21 08:15 Dose: 15 ml Clozapine (Clozapine 100 Mg Tab) 200 mg PO TID@0900,1300,2100 [facility] Stop: 11/22/21 23:00 Last Admin: 11/20/21 13:59 Dose: 200 mg Dexamethasone Sodium Phosphate (Dexamethasone Sod Phosphate 10 Mg/Ml 1 Ml Vial) 6 mg IVP DAILY [facility] Last Admin: 11/20/21 08:15 Dose: 6 mg Furosemide (Furosemide 10 Mg/Ml 4 Ml Vial) 40 mg IV DAILY [facility] Last Admin: 11/20/21 09:34 Dose: 40 mg Cisatracurium Besylate 200 mg/ (Sodium Chloride) 200 mls @ 5.184 mls/hr IV .Q24H [facility]; Protocol Last Titration: 11/19/21 09:30 Dose: 0 mcg/kg/min, 0 mls/hr Propofol 1,000 mg/ IV Solution 100 mls @ 2.592 mls/hr IV .Q24H [facility]; Protocol Last Admin: 11/20/21 12:26 Dose: 55 mcg/kg/min, 28.512 mls/hr Vasopressin 20 unit/ Sodium (Chloride) 51 mls @ 4.59 mls/hr IVPB .Q11H7M [facility] Last Admin: 11/20/21 08:27 Dose: 4.59 mls/hr Cefepime HCl 2 gm/ Sodium (Chloride) 100 mls @ 25 mls/hr IVPB Q12HR [facility]; Protocol Last Admin: 11/20/21 08:15 Dose: 25 mls/hr Norepinephrine Bitartrate 32 (mg/ Sodium Chloride) 250 mls @ 34.02 mls/hr IV .Q7H21M [facility]; Protocol Last Titration: 11/20/21 14:16 Dose: 0.3 mcg/kg/min, 12.15 mls/hr Insulin Human Regular 100 unit (/ Sodium Chloride) 101 mls @ 0 mls/hr IV .Q0M [facility]; Protocol Last Titration: 11/20/21 14:57 Dose: 4 unit/hr, 4.04 mls/hr Sodium Chloride (Saline 0.9%) 500 mls @ 20 mls/hr IV .Q24H [facility] Last Admin: 11/20/21 08:40 Dose: 20 mls/hr Dextrose/Water (Dextrose 5%-Water Iv Soln) 1,000 mls @ 60 mls/hr IV .[id number] [facility] Last Admin: 11/20/21 08:14 Dose: 60 mls/hr Lamotrigine (Lamotrigine 25 Mg Tab) 25 mg PO BID@0900,2100 [facility] Last Admin: 11/20/21 08:15 Dose: 25 mg Levothyroxine Sodium (Levothyroxine 100 Mcg Tab) 100 mcg PO DAILY@0600 [facility] Last Admin: 11/20/21 06:11 Dose: 100 mcg Miscellaneous Information (Pneumonia Protocol Utilized 1 Each Misc) 1 each PO ONCE PRN PRN Reason: Per Protocol Miscellaneous Information (Potassium Replacement Protocol 1 Each Misc) 1 each MISCELLANE DAILY PRN; Protocol PRN Reason: Per Protocol Naloxone HCl (Naloxone 0.4 Mg/Ml 1 Ml Vial) 0.2 mg IV Q2M PRN PRN Reason: Opioid Reversal Pantoprazole Sodium (Pantoprazole 40 Mg/10 Ml Vial) 40 mg IV DAILY [facility] Last Admin: 11/20/21 08:16 Dose: 40 mg Thiamine HCl (Thiamine 100 Mg Tab) 100 mg PO DAILY [facility] Last Admin: 11/20/21 08:16 Dose: 100 mg Past medical history to include: Hypertension, hypothyroid, bipolar disorder, schizophrenia. excessive alcohol use in the past. No smoking. Psychosis, catatonic-like syndrome Social history: Heavy alcohol use in the past. . No smoking. Currently at [facility] Family history: Patient cannot tell Physical examination: VITAL SIGNS: 99.1, 90, 43, 97/58, 91% on the ventilator GENERAL: Intubated on the ventilator. Sedated EYES: Pupils equal. Conjunctiva normal. HEENT: External appearance of nose and ears normal, oral cavity dry. NG tube NECK: JVD unable to assess; masses not palpable. HEART: First and second heart sounds are normal; some edema. LUNGS: Respiratory rate increased; decreased breath sounds ABDOMEN: Soft, nontender, liver spleen not palpable, no masses palpable. PSYCH: Patient sedated, unable to assess MUSCULOSKELETAL:No Clubbing/cyanosis;muscles-grossly intact. NEUROLOGICAL: Patient sedated INVESTIGATIONS, reviewed in the clinical context: November 20: WBC 14 hemoglobin 8.1 sodium 150 potassium 3.4 BUN 61 creatinine 1.09 bicarbonate 33. ABG: PO2 of 56 November 19: WBC is 16.3 hemoglobin 6.7 platelets 206 November 10: WBC 15.2 hemoglobin 11.2 sodium 150 progression 4. 36 creatinine 1.13 November 09: WBC 14.6 hemoglobin 11.4 2149 potassium 4.2 BUN 44 creatinine 1.27 November 08: WBC 12.7 hemoglobin 11.4 sodium 153 potassium 4.5 BUN 60 creatinine 1.55 cortisol 18 November 07: White count 20.7 hemoglobin 12 platelets 345 sodium 162 potassium 4.2. 58 creatinine 2.13 ammonia less than 9 COVID 19: Detected November 06: White count 9.5 hemoglobin 12.6 platelets 321 sodium 157 potassium 4.3 chloride 124 BUN 50 creatinine 2.04 UA positive for leukoesterase, WBC Pro-calcitonin 1.11 Chest x-ray film personally reviewed by me-scattered infiltrate EKG tracing personally reviewed by me-sinus rhythm Previous labs: BUN 9 creatinine 0.95 on June 2021 Assessment and plan: -Severe hypernatremia, from free water deficit from decreased oral intake: Slow to respond Free fluid -ARDS, multifactorial: Slow to respond Requiring high PEEP. -COVID 19 with pneumonitis/hypoxia: Slow to respond Intubated Dexamethasone 6 mg -Possible secondary bacterial pneumonia : Slow to respond Levaquin 750 mg, then changed over to cefepime -Acute hypoxic respiratory failure from respiratory suppression multifactorial: Slow to respond Initially BiPAP 12/5. Currently intubated -Acute severe metabolic encephalopathy from renal failure and delirium: Slow to respond Treat underlying conditions. EEG done. -Schizoaffective disorder, bipolar type. Psychosis: Clozaril 200 mg by mouth daily 3 times a day Lamictal 25 mg twice a day Ativan 1 mg IV every 4 when necessary -Bipolar disorder See above medications -Acute kidney injury, possibly prerenal/ ATN : Some improvement Admission creatinine 2.04. D5W. -Diabetes mellitus type 2, on oral hypoglycemic Follow Accu-Cheks -Hypothyroid, Synthroid 100g a day -Hyperlipidemia Lipitor 40 mg daily at bedtime TriCor 134 mg before supper -Chronic DVT both lower extremity diagnosed on October 19 2020 [place]. -Full code IV norepinephrine, propofol, insulin, vasopressin. Tube feeding at 55 mL an hour. Did not tolerate sedation holiday. Prognosis guarded.
[2021-11-20 15:52] LABS: Glucose,Whole Blood 177 mg/dL (70-110)
[2021-11-20 16:56] LABS: Glucose,Whole Blood 184 mg/dL (70-110)
[2021-11-20 17:26] LABS: Magnesium 2.4 mg/dL (1.6-2.3); Potassium 3.6 mmol/L (3.5-5.1)
[2021-11-20] MEDS: POTASSIUM BICARBONATE/CIT AC 20 MEQ TABLET.EFF NG-TUBE SCH ×2 (17:40→18:34)
[2021-11-20 17:58] LABS: Glucose,Whole Blood 180 mg/dL (70-110)
[2021-11-20 19:10] LABS: Glucose,Whole Blood 164 mg/dL (70-110)
[2021-11-20 20:20] LABS: Glucose,Whole Blood 152 mg/dL (70-110)
[2021-11-20 21:05] LABS: Glucose,Whole Blood 161 mg/dL (70-110)
[2021-11-20 22:02] LABS: Glucose,Whole Blood 165 mg/dL (70-110)
[2021-11-20] MEDS: ATORVASTATIN 40 MG TAB PO SCH (22:05)
[2021-11-20 23:36] LABS: Glucose,Whole Blood 165 mg/dL (70-110)
[2021-11-21 01:01] LABS: Glucose,Whole Blood 161 mg/dL (70-110)
[2021-11-21] MEDS: CISATRACURIUM 200 MG in SODIUM CHLORIDE 0.9% 180 ML IV SCH (01:01)
[2021-11-21 02:06] LABS: Glucose,Whole Blood 164 mg/dL (70-110)
[2021-11-21 03:35] LABS: Glucose,Whole Blood 156 mg/dL (70-110)
[2021-11-21] MEDS: NOREPINEPHRINE 32 MG in SODIUM CHLORIDE 0.9% 218 ML IV SCH ×4 (04:19→23:37)
[2021-11-21] MEDS: DEXTROSE 5% IN WATER 1,000 ML IV SCH ×2 (04:25→16:44)
[2021-11-21] MEDS: ARTIFICIAL TEARS-HYPROMELLOSE DROPS 15 ML BTL BOTH EYES SCH ×6 (04:25→20:10)
[2021-11-21] MEDS: SODIUM CHLORIDE 0.9% 50 ML with VASOPRESSIN 20 UNIT IVPB SCH ×4 (04:26→09:50)
[2021-11-21] MEDS: INSULIN REGULAR 100 UNIT in SODIUM CHLORIDE 0.9% 100 ML IV SCH (04:33)
[2021-11-21 05:10] LABS: Glucose,Whole Blood 177 mg/dL (70-110)
[2021-11-21 05:47] LABS: Anisocytosis Slight; HCT 23.1 % (34.0-46.0); HGB 7.3 gm/dL (11.4-16.0); Hypochromasia Marked; MCH 27.4 pg (25.0-35.0); MCHC 31.6 g/dL (31.0-37.0); MCV 86.5 fL (80.0-100.0); Mean Platelet Volume 8.7; Platelet Count 187 k/uL (150-450); Poikilocytosis Slight; RBC 2.67 m/uL (3.80-5.40); RDW 16.4 % (11.5-15.5); WBC 14.1 k/uL (3.8-10.6)
[2021-11-21 05:56] LABS: Potassium 3.5 mmol/L (3.5-5.1)
[2021-11-21 06:23] LABS: ABG Base Excess 7.3 mmol/L; ABG HCO3 34 mmol/L (21-25); ABG Oxygen Saturation 97.1 % (94-97); ABG PCO2 70 mmHg (35-45); ABG PH 7.29 (7.35-7.45); ABG PO2 88 mmHg (83-108); ABG TCO2 36 mmol/L (19-24)
[2021-11-21 06:28] LABS: Allen Test Performed? No
[2021-11-21] MEDS: LEVOTHYROXINE 100 MCG TAB PO SCH (06:57)
[2021-11-21 07:03] LABS: Glucose,Whole Blood 144 mg/dL (70-110)
[2021-11-21] MEDS ORDERED: POTASSIUM CHLORIDE 20 MEQ in WATER FOR INJECTION 1 100ML.BAG IVPB SCH (07:15)
[2021-11-21 08:01] LABS: Glucose,Whole Blood 150 mg/dL (70-110)
--- NOTE | 2021-11-21 08:13 | XR ---
EXAMINATION TYPE: XR chest 1V portable DATE OF EXAM: 11/21/2021 COMPARISON: Chest x-ray dated 11/20/2021 HISTORY: Intubated TECHNIQUE: Single frontal view of the chest is obtained. FINDINGS: Endotracheal tube, NG tube, left subclavian central venous catheter are stable overlying a ppropriate positions. There is extensive subcutaneous emphysema similar to prior exam, patient is rot ated. There is pneumomediastinum and possible pneumopericardium. No evident pneumothorax or pleural e ffusion. Patchy bilateral airspace disease is present. IMPRESSION: Correlate for pneumonia, edema, ARDS
[2021-11-21] MEDS: CEFEPIME 2 GM in SODIUM CHLORIDE 0.9% 100 ML IVPB SCH ×2 (08:15→20:43)
--- NOTE | 2021-11-21 08:24 | CT ---
EXAMINATION TYPE: CT brain wo con DATE OF EXAM: 11/21/2021 COMPARISON: 11/19/2021 HISTORY: ASSES EMPHYSEMA IN BASE OF SKULL CT DLP: 1232.[address] of the brain was performed. The ventricles, basal cisterns and sulci overlying the cerebral convexities demonstrate mild enlargem ent. There is no evidence for intracranial hemorrhage or sulcal effacement. There is decreased attenuation about the periventricular white matter and deep white matter of both c erebral hemispheres, compatible with chronic small vessel ischemia. Differential diagnosis does inclu de demyelination. No mass effects are seen.No midline shift. Osseous calvarium is intact. Stable Subcutaneous emphysema is redemonstrated extending throughout the fascial planes of the head and neck. There is mucosal thickening of the paranasal sinuses. If symptoms persist consider MRI. IMPRESSION: 1. Age related atrophic and chronic small vessel ischemic change without acute intracranial process s een at this time.
--- NOTE | 2021-11-21 09:42 | P.PN ---
Subjective Patient is seen in follow-up for acute kidney injury. Patient has a cardiac arrest this admission. She is currently intubated. She is maintained on Levophed and vasopressin. Renal function continues to improve. Receiving tube feeds. Sodium level 146. On 60% FiO2 and high PEEP. Vital signs are stable. General: Resting in bed. On vasopressor support. HEENT: Intubated. LUNGS: Breath sounds decreased. HEART: Regular rate and rhythm. ABDOMEN: Soft, no distention. EXTREMITITES: Trace edema. Objective - Vital Signs Vital signs: Vital Signs Temp 98.5 F 11/21/21 04:00 Pulse 77 11/21/21 07:00 Resp 36 H 11/21/21 07:00 BP 92/37 11/21/21 07:00 Pulse Ox 90 L 11/21/21 07:00 FiO2 60 11/21/21 07:20 Intake & Output 11/20/21 11/21/21 11/21/21 18:59 06:59 18:59 Intake Total 3175.685 2912.100 599.152 Output Total 2900 1150 120 Balance 723.546 1291.100 479.152 Weight 107.2 kg 107.9 kg Intake: IV 940 1060 80 Cefepime 2 gm In Sodium 100 100 Chloride 0.9% 100 ml @ 25 mls/hr IVPB Q12HR [facility] Rx #:[id number] D5W 600 720 60 Sodium Chloride 0.9 240 240 20 Intake, IV Titration 375.685 392.100 64.152 Amount Insulin Regular 100 unit 44.574 36.209 In Sodium Chloride 0.9% 100 ml @ Per Protocol IV .Q0M [facility] Rx#:[id number] Norepinephrine 32 mg In 75.195 155.891 Sodium Chloride 0.9% 218 ml @ 0.84 MCG/KG/MIN 34. 02 mls/hr IV .Q7H21M [facility] Rx#:[id number] propofoL 1,000 mg In 255.916 200 64.152 Empty Bag 1 bag @ 5 MCG/ KG/MIN 2.592 mls/hr IV . Q24H [facility] Rx#:[id number] Oral 800 400 Tube Feeding 660 660 55 Other 1200 Output: Urine 2900 1150 120 Other: Voiding Method Indwelling Catheter Indwelling Catheter ABP, PAP, CO, CI - Last Documented Arterial Blood Pressure 98/51 - Labs CBC & Chem 7: 11/21/21 05:06 11/21/21 05:06 Labs: Abnormal Lab Results - Last 24 Hours (Table) 11/20/21 11/20/21 11/20/21 Range/Units 09:56 11:00 12:04 WBC (3.8-10.6) k/uL RBC (3.80-5.40) m/uL Hgb (11.4-16.0) gm/dL Hct (34.0-46.0) % RDW (11.5-15.5) % ABG pH (7.35-7.45) ABG pCO2 (35-45) mmHg ABG HCO3 (21-25) mmol/L ABG Total CO2 (19-24) mmol/L ABG O2 Saturation (94-97) % Sodium (137-145) mmol/L Chloride (98-107) mmol/L Carbon Dioxide (22-30) mmol/L BUN (7-17) mg/dL Creatinine (0.52-1.04) mg/dL Glucose (74-99) mg/dL POC Glucose (mg/dL) 188 H 199 H 188 H (70-110) mg/dL Calcium (8.4-10.2) mg/dL Magnesium (1.6-2.3) mg/dL 11/20/21 11/20/21 11/20/21 Range/Units 12:50 14:01 14:56 WBC (3.8-10.6) k/uL RBC (3.80-5.40) m/uL Hgb (11.4-16.0) gm/dL Hct (34.0-46.0) % RDW (11.5-15.5) % ABG pH (7.35-7.45) ABG pCO2 (35-45) mmHg ABG HCO3 (21-25) mmol/L ABG Total CO2 (19-24) mmol/L ABG O2 Saturation (94-97) % Sodium (137-145) mmol/L Chloride (98-107) mmol/L Carbon Dioxide (22-30) mmol/L BUN (7-17) mg/dL Creatinine (0.52-1.04) mg/dL Glucose (74-99) mg/dL POC Glucose (mg/dL) 195 H 185 H 170 H (70-110) mg/dL Calcium (8.4-10.2) mg/dL Magnesium (1.6-2.3) mg/dL 11/20/21 11/20/21 11/20/21 Range/Units 15:51 16:54 16:57 WBC (3.8-10.6) k/uL RBC (3.80-5.40) m/uL Hgb (11.4-16.0) gm/dL Hct (34.0-46.0) % RDW (11.5-15.5) % ABG pH (7.35-7.45) ABG pCO2 (35-45) mmHg ABG HCO3 (21-25) mmol/L ABG Total CO2 (19-24) mmol/L ABG O2 Saturation (94-97) % Sodium 148 H (137-145) mmol/L Chloride 111 H (98-107) mmol/L Carbon Dioxide 36 H (22-30) mmol/L BUN 64 H (7-17) mg/dL Creatinine 1.07 H (0.52-1.04) mg/dL Glucose 175 H (74-99) mg/dL POC Glucose (mg/dL) 177 H 184 H (70-110) mg/dL Calcium 8.0 L (8.4-10.2) mg/dL Magnesium 2.4 H (1.6-2.3) mg/dL 11/20/21 11/20/21 11/20/21 Range/Units 17:56 19:08 20:19 WBC (3.8-10.6) k/uL RBC (3.80-5.40) m/uL Hgb (11.4-16.0) gm/dL Hct (34.0-46.0) % RDW (11.5-15.5) % ABG pH (7.35-7.45) ABG pCO2 (35-45) mmHg ABG HCO3 (21-25) mmol/L ABG Total CO2 (19-24) mmol/L ABG O2 Saturation (94-97) % Sodium (137-145) mmol/L Chloride (98-107) mmol/L Carbon Dioxide (22-30) mmol/L BUN (7-17) mg/dL Creatinine (0.52-1.04) mg/dL Glucose (74-99) mg/dL POC Glucose (mg/dL) 180 H 164 H 152 H (70-110) mg/dL Calcium (8.4-10.2) mg/dL Magnesium (1.6-2.3) mg/dL 11/20/21 11/20/21 11/20/21 Range/Units 21:04 22:01 23:34 WBC (3.8-10.6) k/uL RBC (3.80-5.40) m/uL Hgb (11.4-16.0) gm/dL Hct (34.0-46.0) % RDW (11.5-15.5) % ABG pH (7.35-7.45) ABG pCO2 (35-45) mmHg ABG HCO3 (21-25) mmol/L ABG Total CO2 (19-24) mmol/L ABG O2 Saturation (94-97) % Sodium (137-145) mmol/L Chloride (98-107) mmol/L Carbon Dioxide (22-30) mmol/L BUN (7-17) mg/dL Creatinine (0.52-1.04) mg/dL Glucose (74-99) mg/dL POC Glucose (mg/dL) 161 H 165 H 165 H (70-110) mg/dL Calcium (8.4-10.2) mg/dL Magnesium (1.6-2.3) mg/dL 11/21/21 11/21/21 11/21/21 Range/Units 00:59 02:03 03:35 WBC (3.8-10.6) k/uL RBC (3.80-5.40) m/uL Hgb (11.4-16.0) gm/dL Hct (34.0-46.0) % RDW (11.5-15.5) % ABG pH (7.35-7.45) ABG pCO2 (35-45) mmHg ABG HCO3 (21-25) mmol/L ABG Total CO2 (19-24) mmol/L ABG O2 Saturation (94-97) % Sodium (137-145) mmol/L Chloride (98-107) mmol/L Carbon Dioxide (22-30) mmol/L BUN (7-17) mg/dL Creatinine (0.52-1.04) mg/dL Glucose (74-99) mg/dL POC Glucose (mg/dL) 161 H 164 H 156 H (70-110) mg/dL Calcium (8.4-10.2) mg/dL Magnesium (1.6-2.3) mg/dL 11/21/21 11/21/21 11/21/21 Range/Units 05:06 05:06 05:07 WBC 14.1 H (3.8-10.6) k/uL RBC 2.67 L (3.80-5.40) m/uL Hgb 7.3 L (11.4-16.0) gm/dL Hct 23.1 L (34.0-46.0) % RDW 16.4 H (11.5-15.5) % ABG pH (7.35-7.45) ABG pCO2 (35-45) mmHg ABG HCO3 (21-25) mmol/L ABG Total CO2 (19-24) mmol/L ABG O2 Saturation (94-97) % Sodium 146 H (137-145) mmol/L Chloride 109 H (98-107) mmol/L Carbon Dioxide 35 H (22-30) mmol/L BUN 61 H (7-17) mg/dL Creatinine (0.52-1.04) mg/dL Glucose 164 H (74-99) mg/dL POC Glucose (mg/dL) 177 H (70-110) mg/dL Calcium 8.0 L (8.4-10.2) mg/dL Magnesium (1.6-2.3) mg/dL 11/21/21 11/21/21 11/21/21 Range/Units 06:17 07:02 07:59 WBC (3.8-10.6) k/uL RBC (3.80-5.40) m/uL Hgb (11.4-16.0) gm/dL Hct (34.0-46.0) % RDW (11.5-15.5) % ABG pH 7.29 L (7.35-7.45) ABG pCO2 70 H (35-45) mmHg ABG HCO3 34 H (21-25) mmol/L ABG Total CO2 36 H (19-24) mmol/L ABG O2 Saturation 97.1 H (94-97) % Sodium (137-145) mmol/L Chloride (98-107) mmol/L Carbon Dioxide (22-30) mmol/L BUN (7-17) mg/dL Creatinine (0.52-1.04) mg/dL Glucose (74-99) mg/dL POC Glucose (mg/dL) 144 H 150 H (70-110) mg/dL Calcium (8.4-10.2) mg/dL Magnesium (1.6-2.3) mg/dL Microbiology - Last 24 Hours (Table) 11/16/21 12:02 Blood Culture - Preliminary Blood No Growth after 96 hours 11/16/21 12:02 Blood Culture - Preliminary Blood No Growth after 96 hours Assessment and Plan Plan: Assessment: 1. Acute kidney injury secondary to ATN secondary to cardiac arrest/shock. Baseline creatinine near 1. Renal function continues to improve. Creatinine 0.94. Nonoliguric. No hydronephrosis noted on kidney ultrasound. 2. Hypernatremia from lack of oral water intake. Improving. 3. Acute hypercapnic respiratory failure. Improved. 4. Status post cardiac arrest this admission. 5. Recent coronavirus infection. 6. Acute blood loss anemia. No active bleeding. Status post blood transfusion this admission. Iron replete. 7. Hypokalemia from poor intake. Magnesium normal. 8. Volume overload. Receiving IV Lasix. Plan: Maintain tube feeds. Maintain free water flushes at 400 mL every 4 hours. Continue D5W at 60 mL an hour. Repeat BMP this evening. Wean FiO2 and vasopressors. Avoid nephrotoxins. Continue to monitor renal function and urine output. Cortisol level not low data 11/08/2021. Currently on dexamethasone. Potassium being replaced.
[2021-11-21] MEDS: ASPIRIN 81 MG PO SCH (09:52)
[2021-11-21] MEDS: APIXABAN 5 MG TAB PO SCH ×2 (09:52→20:29)
[2021-11-21] MEDS: POTASSIUM BICARBONATE/CIT AC 20 MEQ TABLET.EFF NG-TUBE SCH ×2 (09:52→10:35)
[2021-11-21] MEDS: CHLORHEXIDINE GLUCONATE 15 ML CUP MUCOUS MEM SCH ×2 (09:52→20:29)
[2021-11-21] MEDS: cloZAPine 100 MG TAB PO SCH ×3 (09:53→20:29)
[2021-11-21] MEDS: PANTOPRAZOLE 40 MG/10 ML VIAL IV SCH (09:53)
[2021-11-21] MEDS: DEXAMETHASONE SOD PHOSPHATE 10 MG/ML 1 ML VIAL IVP SCH (09:53)
[2021-11-21] MEDS: THIAMINE 100 MG TAB PO SCH (09:53)
[2021-11-21] MEDS: lamoTRIgine 25 MG TAB PO SCH ×2 (09:53→20:30)
[2021-11-21] MEDS: SODIUM CHLORIDE 0.9% 500 ML 500 ML IV SCH (09:53)
[2021-11-21] MEDS: FUROSEMIDE 10 MG/ML 4 ML VIAL IV SCH (09:53)
[2021-11-21 10:06] LABS: Glucose,Whole Blood 156 mg/dL (70-110)
[2021-11-21 11:32] LABS: Glucose,Whole Blood 152 mg/dL (70-110)
--- NOTE | 2021-11-21 12:50 | P.PN ---
Progress Note - Text Progress Note Date: 11/21/21 Chief Complaint: Decreased mentation History of presenting complaint: This is a 50-year-old patient, who follows with Dr. Saenz . Resident of [facility].. known history of bipolar disorder and schizophrenia. 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 Patient was here in May 2021. Severe hypernatremia, acute kidney injury metabolic encephalopathy. 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 Low-dose and high-dose dexamethasone test was put on telemetry specific. Does of Synthroid was increased. Patient now brought in from [facility]. Patient was diagnosed with COVID 19 a few days ago. Was on Paxil of it. Patient became increasingly lethargic. Patient is felt to secondary bacterial pneumonia. Given Levaquin and transferred here. Also noted. Significantly hypernatremic. Patient admitted to ICU. Consultation is made to supervisor tower, nephrology, psychiatry, neurology. This morning patient int ICU. On a Precedex drip. BiPAP. Lethargic. Not able to give any history. Admitted with COVID 19 pneumonitis, hypoxia, possibly secondary bacterial pneumonia, severe hyponatremia, severe metabolic encephalopathy, acute kidney injury. On IV Precedex. IV fluids. Levaquin. EEG. November 08: ICU: On BiPAP 12/5. IV Precedex. Lethargic. IV Levaquin. Oral bicarbonate. Medications through NG tube. EEG pending. November 09: ICU: On BiPAP 12/5. Off Precedex. Remains lethargic a bit restless. November 10: ICU: On BiPAP 12. Remains on Precedex. IV fluids. Sinus rhythm. Remains encephalopathic/delirious. 11/14/2021 Sonny Rubin feels better today, he does not feel dizziness while he is lying in bed all the time. He still have low appetite but no chest pain or dyspnea, no abdominal pain. He still complaining from pain in his legs and he has right leg DVT been on Lovenox with plan to switch him to heparin drip on today as he got midline Blood pressure is 87/56, heart rate 120, sodium is 121 On admission his sodium was still low and was started on D5 normal saline at 100 mL/h however after initial improvement sodium dropped to 121 yesterday so we held his IV fluid and the evening sodium improved 124 (no iv lasix given), however this morning is 121 again. We send urine studies and I'll consult ne phrologist. Also patient has negative CTPA for pulmonary embolism but CT of the abdomen and pelvis showing possible gallbladder fossa abscess or complex fluid collection although it is improved from previous 5 cm down to 2.7 centimeters. The recommended liver ultrasound versus MRI, ultrasound shows the same findings. Also surgery due on the case 11/15/2021 Last night his blood pressure dropped with systolic and 50s, there was a rapid response a team response and he was as stated with IV fluids aggressively, his blood pressure improved in 90s this morning and during the round he was awake an d alert looks tired but is appropriate. Sodium was 121 and then 119. He denied any chest pain or abdominal pain, no other complaints clinically. His losing from his puncture wound in the right lower abdomen was a stopped, he was started on heparin drip per recommendation of mines inspector. After once by the evening time his blood pressure dropped again was 53/32 with altered mental status, there was another rapid response where patient was transferred to the ICU and levophed was started and his mentation started to improve again. Patient was started also on antibiotic empirically with Zosyn and IV vancomycin total infection ruled out completely as there is still high suspicion, with possible sources including the pressure wound sacral ulcer in the lower back, and less likely the gallbladder bed and fossa with 2.7 cm fluid collection (felt less likely because actually it decreased in size from 5.0 cm previously) After transfer patient and at bedside opted for the DO NOT RESUSCITATE order as per bedside nurse. 11/16/2021 Yesterday patient was still deteriorating, however today patient turned around and start improving patient remains in the ICU he needs to pressors we will fit and vasopressin, lactic acid trending up 6.4. Patient mentation is also deteriorated and become more confused and less responsive. His creatinine remains around 1 although he has low urine output. Patient is resuscitated with many fluids and also his broad-spectrum antibiotics with IV vancomycin and Zosyn, as septic shock is highly suspected is the cause of the patient profound hypotension and shock state. Although other factors might be contributing to it. Because of this we started the patient on hydrocortisone to increase the sensitivity of the adrenergic receptors to the catecholamine. Also replacing electrolytes including calcium and magnesium. Sodium slightly trending up. Patient remains in critical condition. Family at bedside 11/17/2021 Patient today workup and he was awake alert and oriented 3, he follows commands, he feels hungry and actually he started tolerating diet for the first time after several months. He denies any respiratory symptoms, his abdomen looks benign, no other new complaints. Blood pressure is improving and he required less pressors, currently blood pressure is 87/61, is less tachycardic around 110. He is currently on levophed 0.03 which is decreased from yesterday. Last night we added hydrocortisone 100 mg 3 times a day as a replacement therapy but to support blood pressure and increased sensitivity of levophed to its adrenergic receptors. Since blood pressure improvement with lower dose to 50 mg today, possibly we will discontinue it in one or 2 days once blood pressure keep improvement. Also patient receiving fluids. Labs looks stable, hemoglobin 9.8, sodium 126 he remains on Zosyn, vancomycin was discontinued. He remains on Zosyn. Anticoagulation is switched to Eliquis therapeutic dose at 10 mg which could be switched to 5 mg on 11/27. Prognosis remains guarded 11/18/2021 Patient is awake but drowsy, His blood pressure is improving but he still on pressors although is requiring less amount He has poor urine output but creatinine is around 1.1. His GFR is 66. He is going to receive 1 dose of Lasix 80 mg today. Also significant sodium bicarb and albumin infusion. He remains on Zosyn Anticoagulation with Eliquis [facility] 18[facility] 11/19/2021: I resumed care of patient today ICU: Ventilated intubated. FiO2 50 and a PEEP of 22. Telemetry sinus rhythm. Drips include norepinephrine, propofol, insulin, vasopressin. Nimbex was discontinued earlier today. Receiving a unit of blood. 2 feeding at 55 mL an hour. Bicarbonate infusion discontinued earlier. NG tube. 11/20/2021: ICU: On the ventilator. Intubated. FiO2 16 a PEEP of 22. Drips include vasopressin, levo fed, propofol, insulin. 2 feeding at 55 mL an hour. Telemetry shows sinus rhythm. His sed rate. Spoke to the sister at the bedside. Sedation holiday was tried. Patient became agitated. 11/21/2021: ICU: On the ventilator. Intubated. FiO2 55 and a PEEP of 22. This include vasopressin, norepinephrine, propofol. Telemetry shows sinus rhythm. NG tube in place. 2 feeding at 41 mL an hour. Active Medications Apixaban (Apixaban 5 Mg Tab) 5 mg PO BID [facility]; Protocol Last Admin: 11/21/21 09:52 Dose: 5 mg Artificial Tears (Artificial Tears-Hypromellose Drops 15 Ml Btl) 1 drops BOTH EYES Q4HR [facility] Last Admin: 11/21/21 09:51 Dose: 1 drops Aspirin (Aspirin 81 Mg) 81 mg PO DAILY@0900 [facility] Last Admin: 11/21/21 09:52 Dose: 81 mg Atorvastatin Calcium (Atorvastatin 40 Mg Tab) 40 mg PO HS@2100 [facility] Last Admin: 11/20/21 22:05 Dose: 40 mg Chlorhexidine Gluconate (Chlorhexidine Gluconate 15 Ml Cup) 15 ml MUCOUS MEM BID [facility] Last Admin: 11/21/21 09:52 Dose: 15 ml Clozapine (Clozapine 100 Mg Tab) 200 mg PO TID@0900,1300,2100 [facility] Stop: 11/22/21 23:00 Last Admin: 11/21/21 09:53 Dose: 200 mg Dexamethasone Sodium Phosphate (Dexamethasone Sod Phosphate 10 Mg/Ml 1 Ml Vial) 6 mg IVP DAILY [facility] Last Admin: 11/21/21 09:53 Dose: 6 mg Furosemide (Furosemide 10 Mg/Ml 4 Ml Vial) 40 mg IV DAILY [facility] Last Admin: 11/21/21 09:53 Dose: 40 mg Cisatracurium Besylate 200 mg/ (Sodium Chloride) 200 mls @ 5.184 mls/hr IV .Q24H [facility]; Protocol Last Admin: 11/21/21 01:01 Dose: Not Given Propofol 1,000 mg/ IV Solution 100 mls @ 2.592 mls/hr IV .Q24H [facility]; Protocol Last Admin: 11/21/21 08:15 Dose: 55 mcg/kg/min, 28.512 mls/hr Vasopressin 20 unit/ Sodium (Chloride) 51 mls @ 4.59 mls/hr IVPB .Q11H7M [facility] Last Admin: 11/21/21 09:50 Dose: 4.59 mls/hr Cefepime HCl 2 gm/ Sodium (Chloride) 100 mls @ 25 mls/hr IVPB Q12HR [facility]; Protocol Last Admin: 11/21/21 08:15 Dose: 25 mls/hr Norepinephrine Bitartrate 32 (mg/ Sodium Chloride) 250 mls @ 34.02 mls/hr IV .Q7H21M [facility]; Protocol Last Admin: 11/21/21 08:02 Dose: Not Given Insulin Human Regular 100 unit (/ Sodium Chloride) 101 mls @ 0 mls/hr IV .Q0M [facility]; Protocol Last Admin: 11/21/21 04:33 Dose: 3 unit/hr, 3.03 mls/hr Sodium Chloride (Saline 0.9%) 500 mls @ 20 mls/hr IV .Q24H [facility] Last Admin: 11/21/21 09:53 Dose: 20 mls/hr Dextrose/Water (Dextrose 5%-Water Iv Soln) 1,000 mls @ 60 mls/hr IV .[id number] [facility] Last Admin: 11/21/21 04:25 Dose: 60 mls/hr Lamotrigine (Lamotrigine 25 Mg Tab) 25 mg PO BID@0900,2100 [facility] Last Admin: 11/21/21 09:53 Dose: 25 mg Levothyroxine Sodium (Levothyroxine 100 Mcg Tab) 100 mcg PO DAILY@0600 [facility] Last Admin: 11/21/21 06:57 Dose: 100 mcg Miscellaneous Information (Pneumonia Protocol Utilized 1 Each Misc) 1 each PO ONCE PRN PRN Reason: Per Protocol Miscellaneous Information (Potassium Replacement Protocol 1 Each Misc) 1 each MISCELLANE DAILY PRN; Protocol PRN Reason: Per Protocol Naloxone HCl (Naloxone 0.4 Mg/Ml 1 Ml Vial) 0.2 mg IV Q2M PRN PRN Reason: Opioid Reversal Pantoprazole Sodium (Pantoprazole 40 Mg/10 Ml Vial) 40 mg IV DAILY [facility] Last Admin: 11/21/21 09:53 Dose: 40 mg Thiamine HCl (Thiamine 100 Mg Tab) 100 mg PO DAILY [facility] Last Admin: 11/21/21 09:53 Dose: 100 mg Past medical history to include: Hypertension, hypothyroid, bipolar disorder, schizophrenia. excessive alcohol use in the past. No smoking. Psychosis, catatonic-like syndrome Social history: Heavy alcohol use in the past. . No smoking. Currently at [facility] Family history: Patient cannot tell Physical examination: VITAL SIGNS: 99.1, 80, 40, 100 x 64, 90% on the ventilator GENERAL: Intubated on the ventilator. Sedated EYES: Pupils equal. Conjunctiva normal. HEENT: External appearance of nose and ears normal, oral cavity dry. NG tube NECK: JVD unable to assess; masses not palpable. HEART: First and second heart sounds are normal; some edema. LUNGS: Respiratory rate increased; decreased breath sounds ABDOMEN: Soft, nontender, liver spleen not palpable, no masses palpable. PSYCH: Patient sedated, unable to assess MUSCULOSKELETAL:No Clubbing/cyanosis;muscles-grossly intact. NEUROLOGICAL: sedated INVESTIGATIONS, reviewed in the clinical context: November 21: WBC 14.1 hemoglobin 7.3 platelets 187 sodium 146 bicarbonate 35 creatinine 0.94. ABG: PH 7.29 pCO2 70 pO2 88 November 20: WBC 14 hemoglobin 8.1 sodium 150 potassium 3.4 BUN 61 creatinine 1.09 bicarbonate 33. ABG: PO2 of 56 November 19: WBC is 16.3 hemoglobin 6.7 platelets 206 November 10: WBC 15.2 hemoglobin 11.2 sodium 150 progression 4. 36 creatinine 1.13 November 09: WBC 14.6 hemoglobin 11.4 2149 potassium 4.2 BUN 44 creatinine 1.27 November 08: WBC 12.7 hemoglobin 11.4 sodium 153 potassium 4.5 BUN 60 creatinine 1.55 cortisol 18 November 07: White count 20.7 hemoglobin 12 platelets 345 sodium 162 potassium 4.2. 58 creatinine 2.13 ammonia less than 9 COVID 19: Detected November 06: White count 9.5 hemoglobin 12.6 platelets 321 sodium 157 potassium 4.3 chloride 124 BUN 50 creatinine 2.04 UA positive for leukoesterase, WBC Pro-calcitonin 1.11 Chest x-ray film personally reviewed by me-scattered infiltrate EKG tracing personally reviewed by me-sinus rhythm Previous labs: BUN 9 creatinine 0.95 on June 2021 Assessment and plan: -Severe hypernatremia, from free water deficit from decreased oral intake: Some improvement Free fluid -ARDS, multifactorial: Slow to respond Requiring high PEEP. -COVID 19 with pneumonitis/hypoxia: Slow to respond Intubated Dexamethasone 6 mg -Possible secondary bacterial pneumonia : Slow to respond IV cefepime -Acute hypoxic respiratory failure from respiratory suppression multifactorial: Slow to respond Initially BiPAP 12/5. Currently intubated -Acute severe metabolic encephalopathy from renal failure and delirium: Slow to respond Treat underlying conditions. -Schizoaffective disorder, bipolar type. Psychosis: Clozaril 200 mg by mouth daily 3 times a day Lamictal 25 mg twice a day Ativan 1 mg IV every 4 when necessary -Bipolar disorder See above medications -Acute kidney injury, possibly prerenal/ ATN : Corrected Admission creatinine 2.04. Received fluids -Diabetes mellitus type 2, on oral hypoglycemic Follow Accu-Cheks -Hypothyroid, Synthroid 100g a day -Hyperlipidemia Lipitor 40 mg daily at bedtime TriCor 134 mg before supper -Chronic DVT both lower extremity diagnosed on October 19 2020 [place]. -Full code IV norepinephrine, propofol, insulin, vasopressin. Tube feeding at 41 mL an hour. Intubated Prognosis guarded. Follow-up with consultants.
--- NOTE | 2021-11-21 12:55 | P.PN ---
Subjective Progress Note Date: 11/21/21 The patient is seen at bedside and per nurse no improvement in her condition. Objective - Vital Signs Vital signs: Vital Signs Temp 99.1 F 11/21/21 08:00 Pulse 80 11/21/21 11:00 Resp 40 H 11/21/21 11:00 BP 109/64 11/21/21 11:00 Pulse Ox 90 L 11/21/21 11:00 FiO2 60 11/21/21 11:10 Intake & Output 11/20/21 11/21/21 11/21/21 18:59 06:59 18:59 Intake Total 3175.685 2912.100 1639.152 Output Total 2900 1150 1070 Balance 973.349 1360.100 569.152 Weight 107.2 kg 107.9 kg 107.9 kg Intake: IV 940 1060 500 Cefepime 2 gm In Sodium 100 100 100 Chloride 0.9% 100 ml @ 25 mls/hr IVPB Q12HR [facility]ISSE Rx #:[id number] D5W 600 720 300 Sodium Chloride 0.9 240 240 100 Intake, IV Titration 375.685 392.100 64.152 Amount Insulin Regular 100 unit 44.574 36.209 In Sodium Chloride 0.9% 100 ml @ Per Protocol IV .Q0M [facility] Rx#:[id number] Norepinephrine 32 mg In 75.195 155.891 Sodium Chloride 0.9% 218 ml @ 0.84 MCG/KG/MIN 34. 02 mls/hr IV .Q7H21M [facility] Rx#:[id number] propofoL 1,000 mg In 255.916 200 64.152 Empty Bag 1 bag @ 5 MCG/ KG/MIN 2.592 mls/hr IV . Q24H [facility]ISSE Rx#:[id number] Oral 800 400 Tube Feeding 660 660 275 Other 1200 400 Output: Urine 2900 1150 1070 Other: Voiding Method Indwelling Catheter Indwelling Catheter ABP, PAP, CO, CI - Last Documented Arterial Blood Pressure 101/56 - Exam GENERAL: The patient is lying in bed and does not seem in acute distress.. LUNG: Intubated on vent and requiring high PEEP of 22. EXTREMITIES: Has crackling sensation on palpation of bilateral uppers proximal (left > right). NEUROLOGICAL: Limited. IV Propofol 55mcg/kg/min Higher mental function: Is comatose. Cranial nerves:Pupils are pinpoint and no reactive to light. Has intact corneal reflex bilaterally. No facial weakness. Has weak gag reflex. Is not breathing over vent. Grimaces face to suctioning. r Motor: Unable to asssess. Cerebellum: Unable to assess. Sensation: Unable to assess. - Labs CBC & Chem 7: 11/21/21 05:06 11/21/21 05:06 Labs: Abnormal Lab Results - Last 24 Hours (Table) 11/20/21 11/20/21 11/20/21 Range/Units 12:50 14:01 14:56 WBC (3.8-10.6) k/uL RBC (3.80-5.40) m/uL Hgb (11.4-16.0) gm/dL Hct (34.0-46.0) % RDW (11.5-15.5) % ABG pH (7.35-7.45) ABG pCO2 (35-45) mmHg ABG HCO3 (21-25) mmol/L ABG Total CO2 (19-24) mmol/L ABG O2 Saturation (94-97) % Sodium (137-145) mmol/L Chloride (98-107) mmol/L Carbon Dioxide (22-30) mmol/L BUN (7-17) mg/dL Creatinine (0.52-1.04) mg/dL Glucose (74-99) mg/dL POC Glucose (mg/dL) 195 H 185 H 170 H (70-110) mg/dL Calcium (8.4-10.2) mg/dL Magnesium (1.6-2.3) mg/dL 11/20/21 11/20/21 11/20/21 Range/Units 15:51 16:54 16:57 WBC (3.8-10.6) k/uL RBC (3.80-5.40) m/uL Hgb (11.4-16.0) gm/dL Hct (34.0-46.0) % RDW (11.5-15.5) % ABG pH (7.35-7.45) ABG pCO2 (35-45) mmHg ABG HCO3 (21-25) mmol/L ABG Total CO2 (19-24) mmol/L ABG O2 Saturation (94-97) % Sodium 148 H (137-145) mmol/L Chloride 111 H (98-107) mmol/L Carbon Dioxide 36 H (22-30) mmol/L BUN 64 H (7-17) mg/dL Creatinine 1.07 H (0.52-1.04) mg/dL Glucose 175 H (74-99) mg/dL POC Glucose (mg/dL) 177 H 184 H (70-110) mg/dL Calcium 8.0 L (8.4-10.2) mg/dL Magnesium 2.4 H (1.6-2.3) mg/dL 11/20/21 11/20/21 11/20/21 Range/Units 17:56 19:08 20:19 WBC (3.8-10.6) k/uL RBC (3.80-5.40) m/uL Hgb (11.4-16.0) gm/dL Hct (34.0-46.0) % RDW (11.5-15.5) % ABG pH (7.35-7.45) ABG pCO2 (35-45) mmHg ABG HCO3 (21-25) mmol/L ABG Total CO2 (19-24) mmol/L ABG O2 Saturation (94-97) % Sodium (137-145) mmol/L Chloride (98-107) mmol/L Carbon Dioxide (22-30) mmol/L BUN (7-17) mg/dL Creatinine (0.52-1.04) mg/dL Glucose (74-99) mg/dL POC Glucose (mg/dL) 180 H 164 H 152 H (70-110) mg/dL Calcium (8.4-10.2) mg/dL Magnesium (1.6-2.3) mg/dL 11/20/21 11/20/21 11/20/21 Range/Units 21:04 22:01 23:34 WBC (3.8-10.6) k/uL RBC (3.80-5.40) m/uL Hgb (11.4-16.0) gm/dL Hct (34.0-46.0) % RDW (11.5-15.5) % ABG pH (7.35-7.45) ABG pCO2 (35-45) mmHg ABG HCO3 (21-25) mmol/L ABG Total CO2 (19-24) mmol/L ABG O2 Saturation (94-97) % Sodium (137-145) mmol/L Chloride (98-107) mmol/L Carbon Dioxide (22-30) mmol/L BUN (7-17) mg/dL Creatinine (0.52-1.04) mg/dL Glucose (74-99) mg/dL POC Glucose (mg/dL) 161 H 165 H 165 H (70-110) mg/dL Calcium (8.4-10.2) mg/dL Magnesium (1.6-2.3) mg/dL 11/21/21 11/21/21 11/21/21 Range/Units 00:59 02:03 03:35 WBC (3.8-10.6) k/uL RBC (3.80-5.40) m/uL Hgb (11.4-16.0) gm/dL Hct (34.0-46.0) % RDW (11.5-15.5) % ABG pH (7.35-7.45) ABG pCO2 (35-45) mmHg ABG HCO3 (21-25) mmol/L ABG Total CO2 (19-24) mmol/L ABG O2 Saturation (94-97) % Sodium (137-145) mmol/L Chloride (98-107) mmol/L Carbon Dioxide (22-30) mmol/L BUN (7-17) mg/dL Creatinine (0.52-1.04) mg/dL Glucose (74-99) mg/dL POC Glucose (mg/dL) 161 H 164 H 156 H (70-110) mg/dL Calcium (8.4-10.2) mg/dL Magnesium (1.6-2.3) mg/dL 11/21/21 11/21/21 11/21/21 Range/Units 05:06 05:06 05:07 WBC 14.1 H (3.8-10.6) k/uL RBC 2.67 L (3.80-5.40) m/uL Hgb 7.3 L (11.4-16.0) gm/dL Hct 23.1 L (34.0-46.0) % RDW 16.4 H (11.5-15.5) % ABG pH (7.35-7.45) ABG pCO2 (35-45) mmHg ABG HCO3 (21-25) mmol/L ABG Total CO2 (19-24) mmol/L ABG O2 Saturation (94-97) % Sodium 146 H (137-145) mmol/L Chloride 109 H (98-107) mmol/L Carbon Dioxide 35 H (22-30) mmol/L BUN 61 H (7-17) mg/dL Creatinine (0.52-1.04) mg/dL Glucose 164 H (74-99) mg/dL POC Glucose (mg/dL) 177 H (70-110) mg/dL Calcium 8.0 L (8.4-10.2) mg/dL Magnesium (1.6-2.3) mg/dL 11/21/21 11/21/21 11/21/21 Range/Units 06:17 07:02 07:59 WBC (3.8-10.6) k/uL RBC (3.80-5.40) m/uL Hgb (11.4-16.0) gm/dL Hct (34.0-46.0) % RDW (11.5-15.5) % ABG pH 7.29 L (7.35-7.45) ABG pCO2 70 H (35-45) mmHg ABG HCO3 34 H (21-25) mmol/L ABG Total CO2 36 H (19-24) mmol/L ABG O2 Saturation 97.1 H (94-97) % Sodium (137-145) mmol/L Chloride (98-107) mmol/L Carbon Dioxide (22-30) mmol/L BUN (7-17) mg/dL Creatinine (0.52-1.04) mg/dL Glucose (74-99) mg/dL POC Glucose (mg/dL) 144 H 150 H (70-110) mg/dL Calcium (8.4-10.2) mg/dL Magnesium (1.6-2.3) mg/dL 11/21/21 11/21/21 Range/Units 10:04 11:31 WBC (3.8-10.6) k/uL RBC (3.80-5.40) m/uL Hgb (11.4-16.0) gm/dL Hct (34.0-46.0) % RDW (11.5-15.5) % ABG pH (7.35-7.45) ABG pCO2 (35-45) mmHg ABG HCO3 (21-25) mmol/L ABG Total CO2 (19-24) mmol/L ABG O2 Saturation (94-97) % Sodium (137-145) mmol/L Chloride (98-107) mmol/L Carbon Dioxide (22-30) mmol/L BUN (7-17) mg/dL Creatinine (0.52-1.04) mg/dL Glucose (74-99) mg/dL POC Glucose (mg/dL) 156 H 152 H (70-110) mg/dL Calcium (8.4-10.2) mg/dL Magnesium (1.6-2.3) mg/dL Microbiology - Last 24 Hours (Table) 11/16/21 12:02 Blood Culture - Preliminary Blood No Growth after 96 hours 11/16/21 12:02 Blood Culture - Preliminary Blood No Growth after 96 hours Assessment and Plan Assessment: Encephalopathy seems due to multifactorial: Predominately hypoxic encephalopathy due to COVID-19 pneumonia. Also component of metabolic encephalopathy (hypernatremia, JAYLA). Encephalopathy also due to medication effect (IV Propofol). Status post cardiac arrest with downtime of 10 minutes. Probable anoxic encep halopathy superimposed on pre-existing metabolic encephalopathy Significant Emphysema History of seizure and she had a seizure about 6-8 years ago (arnol brown) while ?reported GTC on 03/15/2021 (but her 2.5 hour EEG and routine EEG was negative for seizure or epileptiform discharges) Acute hypoxemic respiratory failure secondary due to pneumonia Acute hypernatremia--resolved JAYLA--resolved Recent [place] virus infection History of diabetes History of hyperthyroid Schizoaffective disorder Primary history of tobacco use History of heavy alcohol use History of marijuana use Plan: * EEG was performed, which was abnormal due to background slowing of moderate to severe degree. This is suggestive of generalized cerebral dysfunction, as can be seen with toxic metabolic encephalopathy or due to diffuse structural brain abnormality. Clinical correlation recommended. No epileptiform activity was seen. * CT head repeat on 11/19/2021: It is reported as no acute intracranial process. Subcutaneous emphysema tracking into the skull base myofascial planes. Of note during this hospital stay patient has significant respiratory issues and has emphysema. * Repeat CT head: It is reported as age-related atrophic and chronic small vessel ischemic change without acute intracranial process seen at this time. I personally reviewed the CT of the head and I don't feel there is any change compared to prior. * Patient is on Eliquis, also on aspirin 81 mg and Lipitor 40 mg daily. * Nephrology team is on board * We'll defer the rest of the medical management to the primary and ICU team * Prognosis is poor. * Patient is NO CODE. * I had a lengthy conversation with the patient's sister and notified her that her condition seems poor. She is on board but it seems patient does not want to make the patient comfort care. Breezy Orozco M.D. Neuro-Hospitalist Time with Patient: Less than 30
--- NOTE | 2021-11-21 13:00 | P.PN ---
Subjective Progress Note Date: 11/21/21 Principal diagnosis: Acute hypoxic respiratory failure, COVID-19 pneumonia, ARDS 50-year-old female, who is brought in by the [place] emergency services. She apparently resides at [facility] in that area. She apparently has a history of schizophrenia, as well as a history of recent infection with coronavirus. The patient was brought in because of mental status changes, and also low saturations. Apparently the patient was evaluated there and thought to have pneumonia. The patient was treated with Levaquin here. Currently, she seen in the emergency room, room 11. She is on 15 L high flow oxygen. She's getting saline at 75 mL an hour. I did have the opportunity to speak to the patient's , name Art. He was able to provide some history . The patient is at the [facility] as mentioned above, but is unable to prepare food for herself. Her mental status varies hour to hour and day today according to him. The patient herself can give me no history. She sees been here in the emergency department, she's been moaning and groaning. Her chest x- ray shows bilateral patchy infiltrates. A blood gas was done and showed a pO2 of 89, pCO2 35, and pH is 7.332. She apparently has a history of diabetes, hypertension, hyperlipidemia, and hypothyroidism. White count 11.5, hemoglobin 12.6, hematocrit 41.3, with a normal platelet count. Sodium 157, potassium 4.3, chlorides 124, CO2 19, anion gap 14, BUN 50, creatinine 2.04. Her lactic acid was 1.2. Pro-calcitonin level is pending. Urine is yellow and cloudy. There is 1+ protein. Trace blood. Small positive leukocyte esterase, 7 RBCs, 9 WBCs, and many bacteria. Chest x-ray shows patchy bilateral infiltrates. 11/20/2021, the patient is being seen for a follow-up in the intensive care unit for COVID 19 related pneumonia/ARDS and respiratory complications related to COVID 19 infection.. The patient is on propofol which is running at 55 mcg/kg per minute. The patient is currently off Nimbex. The patient was taken off Nimbex yesterday and the patient remains quite synchronous and still on a mechanical ventilator. There has been no signs of any neurologic recovery at this point in time. The patient remains completely unresponsive. The patient underwent a CAT scan of the brain yesterday that showed no acute abnormalities. The patient remains on assist-control mode of mechanical ventilation and the patient is currently on assist-control at the rate of 32, tidal volume of 375, FiO2 is at 60% with a PEEP of 22. Peak airway pressure is 38. Chest x-ray showed diffuse bilateral pulmonary infiltrates along with that there is subcutaneous emphysema extensively in the anterior chest on the neck area. No major change in the x-ray findings. Blood gases from today shows a pH of 7.29 with a pCO2 of 69 and pO2 of 56. The patient's acidosis is improved as the patient was given bicarb infusion. The pH is improved. Pressor requirements have also improved and the patient is on levo fed 0.2 mics respiratory per minute and the patient is on a physiologic dose of vasopressin at 0.03 units an hour. The patient is developing significant amount of third spacing and on today's labs the patient is a component of hypo-or uremic hypernatremia. The patient was started on D5 water at the rate of 60 mL an hour and the patient is also receiving free water through the NG replaced the free water deficit. Input output balance over the past 24 hours is positive for 0.6 L. The patient's sodium is at 150 with a potassium level of 3.4 and a BUN of 61 and a creatinine of 1.08. The white cell count is at 40 with a hemoglobin of 8.1. The patient remains on vital high protein at the rate of 55 mL an hour. She is afebrile. Pressor requirements are less. DNR/DNI CODE STATUS. Remains on Decadron. Today on 11/21/2021, patient remains in the ICU, intubated and mechanically ventilated. She is sedated, on propofol, off Nimbex, however patient needs to go back on Nimbex. Patient is on assist control rate of 3 to tidal volume 375 FiO2 60% and PEEP of 22. And after reviewing her ABG which showed a pO2 of 88 pCO2 70 pH of 7.29, I decreased her FiO2 to 55%. I have also increased her propofol to 75 mcg/kg/m, and I restarted the patient on Nimbex. CODE STATUS was changed to DO NOT RESUSCITATE CODE STATUS, and today I had a long discussion with family members and they seem to be inclined to consider possibly comfort care measures. Patient remains on norepinephrine at 0.25 mcg/kg/m vasopressin at 0.03 units per minute propofol presently at 55 mcg/kg/m insulin at 3 units per hour patient is on enteral feeding. She is on cefepime, eliquis, Lasix 40 mg IV push daily, and Decadron 6 mg IV push daily. Patient was intubated on 11/15, and since then she had cardiac arrest 2. Patient obviously sustained some severe metabolic encephalopathy and CT of the brain is basically nondiagnostic. Being followed by neurology on consultation. Chest x-ray today continues to show ARDS, and subcutaneous emphysema. WBC count is 14.1 hemoglobin 7.3 basic metabolic profile is normal BUN is 61 creatinine 0.94, last pro-calcitonin was 0.10. MedicationsShe is on eliquis, atorvastatin, cefepime, Peridex, Nimbex was restarted, she is also on clozapine, Decadron 6 mg IV push daily, Lasix 40 mg IV push daily Lamictal 25 mg twice a day Protonix 40 mg IV push daily, she is also on propofol, thiamine, norepinephrine and vasopressin Objective - Vital Signs Vital signs: Vital Signs Temp 99.1 F 11/21/21 08:00 Pulse 80 11/21/21 11:00 Resp 40 H 11/21/21 11:00 BP 109/64 11/21/21 11:00 Pulse Ox 90 L 11/21/21 11:00 FiO2 60 11/21/21 11:10 Intake & Output 11/20/21 11/21/21 11/21/21 18:59 06:59 18:59 Intake Total 3175.685 2912.100 1639.152 Output Total 2900 1150 1070 Balance 278.218 3270.100 569.152 Weight 107.2 kg 107.9 kg 107.9 kg Intake: IV 940 1060 500 Cefepime 2 gm In Sodium 100 100 100 Chloride 0.9% 100 ml @ 25 mls/hr IVPB Q12HR DENISSE Rx #:[id number] D5W 600 720 300 Sodium Chloride 0.9 240 240 100 Intake, IV Titration 375.685 392.100 64.152 Amount Insulin Regular 100 unit 44.574 36.209 In Sodium Chloride 0.9% 100 ml @ Per Protocol IV .Q0M DENISSE Rx#:[id number] Norepinephrine 32 mg In 75.195 155.891 Sodium Chloride 0.9% 218 ml @ 0.84 MCG/KG/MIN 34. 02 mls/hr IV .Q7H21M DENISSE Rx#:[id number] propofoL 1,000 mg In 255.916 200 64.152 Empty Bag 1 bag @ 5 MCG/ KG/MIN 2.592 mls/hr IV . Q24H DENISSE Rx#:[id number] Oral 800 400 Tube Feeding 660 660 275 Other 1200 400 Output: Urine 2900 1150 1070 Other: Voiding Method Indwelling Catheter Indwelling Catheter ABP, PAP, CO, CI - Last Documented Arterial Blood Pressure 101/56 - Exam Physical Exam: Revealed a 60-year-old female, obese, intubated, mechanically ventilated, sedated, and placed on Nimbex again. Head: Atraumatic, normocephalic. Endotracheal tube and orogastric tube is intact. There is evidence of subcutaneous emphysema of the along the neck area and anterior chest. HEENT: Short obese neck. [Neck is supple.] [No neck masses.] [No thyromegaly.] [No JVD.] Chest: [Symmetrical chest expansion, crackles and rhonchi noted bilaterally. No wheezing. Chest wall subcutaneous emphysema isn't palpable. Cardiac Exam: Distant S1 and S2, no S3 gallop, no murmur. Abdomen: Obese, [Soft, nontender, no megaly, no rebound, no guarding, normal bowel sounds.] Extremities: [No clubbing, no edema, no cyanosis.] Good pulses bilaterally. Neurological Exam: Unable to assess, patient is sedated, he is on propofol, and Nimbex was admitted this morning. Psychiatric: Could not be assessed. - Labs CBC & Chem 7: 11/21/21 05:06 11/21/21 05:06 Labs: Abnormal Lab Results - Last 24 Hours (Table) 11/20/21 11/20/21 11/20/21 Range/Units 12:50 14:01 14:56 WBC (3.8-10.6) k/uL RBC (3.80-5.40) m/uL Hgb (11.4-16.0) gm/dL Hct (34.0-46.0) % RDW (11.5-15.5) % ABG pH (7.35-7.45) ABG pCO2 (35-45) mmHg ABG HCO3 (21-25) mmol/L ABG Total CO2 (19-24) mmol/L ABG O2 Saturation (94-97) % Sodium (137-145) mmol/L Chloride (98-107) mmol/L Carbon Dioxide (22-30) mmol/L BUN (7-17) mg/dL Creatinine (0.52-1.04) mg/dL Glucose (74-99) mg/dL POC Glucose (mg/dL) 195 H 185 H 170 H (70-110) mg/dL Calcium (8.4-10.2) mg/dL Magnesium (1.6-2.3) mg/dL 11/20/21 11/20/21 11/20/21 Range/Units 15:51 16:54 16:57 WBC (3.8-10.6) k/uL RBC (3.80-5.40) m/uL Hgb (11.4-16.0) gm/dL Hct (34.0-46.0) % RDW (11.5-15.5) % ABG pH (7.35-7.45) ABG pCO2 (35-45) mmHg ABG HCO3 (21-25) mmol/L ABG Total CO2 (19-24) mmol/L ABG O2 Saturation (94-97) % Sodium 148 H (137-145) mmol/L Chloride 111 H (98-107) mmol/L Carbon Dioxide 36 H (22-30) mmol/L BUN 64 H (7-17) mg/dL Creatinine 1.07 H (0.52-1.04) mg/dL Glucose 175 H (74-99) mg/dL POC Glucose (mg/dL) 177 H 184 H (70-110) mg/dL Calcium 8.0 L (8.4-10.2) mg/dL Magnesium 2.4 H (1.6-2.3) mg/dL 11/20/21 11/20/21 11/20/21 Range/Units 17:56 19:08 20:19 WBC (3.8-10.6) k/uL RBC (3.80-5.40) m/uL Hgb (11.4-16.0) gm/dL Hct (34.0-46.0) % RDW (11.5-15.5) % ABG pH (7.35-7.45) ABG pCO2 (35-45) mmHg ABG HCO3 (21-25) mmol/L ABG Total CO2 (19-24) mmol/L ABG O2 Saturation (94-97) % Sodium (137-145) mmol/L Chloride (98-107) mmol/L Carbon Dioxide (22-30) mmol/L BUN (7-17) mg/dL Creatinine (0.52-1.04) mg/dL Glucose (74-99) mg/dL POC Glucose (mg/dL) 180 H 164 H 152 H (70-110) mg/dL Calcium (8.4-10.2) mg/dL Magnesium (1.6-2.3) mg/dL 11/20/21 11/20/21 11/20/21 Range/Units 21:04 22:01 23:34 WBC (3.8-10.6) k/uL RBC (3.80-5.40) m/uL Hgb (11.4-16.0) gm/dL Hct (34.0-46.0) % RDW (11.5-15.5) % ABG pH (7.35-7.45) ABG pCO2 (35-45) mmHg ABG HCO3 (21-25) mmol/L ABG Total CO2 (19-24) mmol/L ABG O2 Saturation (94-97) % Sodium (137-145) mmol/L Chloride (98-107) mmol/L Carbon Dioxide (22-30) mmol/L BUN (7-17) mg/dL Creatinine (0.52-1.04) mg/dL Glucose (74-99) mg/dL POC Glucose (mg/dL) 161 H 165 H 165 H (70-110) mg/dL Calcium (8.4-10.2) mg/dL Magnesium (1.6-2.3) mg/dL 11/21/21 11/21/21 11/21/21 Range/Units 00:59 02:03 03:35 WBC (3.8-10.6) k/uL RBC (3.80-5.40) m/uL Hgb (11.4-16.0) gm/dL Hct (34.0-46.0) % RDW (11.5-15.5) % ABG pH (7.35-7.45) ABG pCO2 (35-45) mmHg ABG HCO3 (21-25) mmol/L ABG Total CO2 (19-24) mmol/L ABG O2 Saturation (94-97) % Sodium (137-145) mmol/L Chloride (98-107) mmol/L Carbon Dioxide (22-30) mmol/L BUN (7-17) mg/dL Creatinine (0.52-1.04) mg/dL Glucose (74-99) mg/dL POC Glucose (mg/dL) 161 H 164 H 156 H (70-110) mg/dL Calcium (8.4-10.2) mg/dL Magnesium (1.6-2.3) mg/dL 11/21/21 11/21/21 11/21/21 Range/Units 05:06 05:06 05:07 WBC 14.1 H (3.8-10.6) k/uL RBC 2.67 L (3.80-5.40) m/uL Hgb 7.3 L (11.4-16.0) gm/dL Hct 23.1 L (34.0-46.0) % RDW 16.4 H (11.5-15.5) % ABG pH (7.35-7.45) ABG pCO2 (35-45) mmHg ABG HCO3 (21-25) mmol/L ABG Total CO2 (19-24) mmol/L ABG O2 Saturation (94-97) % Sodium 146 H (137-145) mmol/L Chloride 109 H (98-107) mmol/L Carbon Dioxide 35 H (22-30) mmol/L BUN 61 H (7-17) mg/dL Creatinine (0.52-1.04) mg/dL Glucose 164 H (74-99) mg/dL POC Glucose (mg/dL) 177 H (70-110) mg/dL Calcium 8.0 L (8.4-10.2) mg/dL Magnesium (1.6-2.3) mg/dL 11/21/21 11/21/21 11/21/21 Range/Units 06:17 07:02 07:59 WBC (3.8-10.6) k/uL RBC (3.80-5.40) m/uL Hgb (11.4-16.0) gm/dL Hct (34.0-46.0) % RDW (11.5-15.5) % ABG pH 7.29 L (7.35-7.45) ABG pCO2 70 H (35-45) mmHg ABG HCO3 34 H (21-25) mmol/L ABG Total CO2 36 H (19-24) mmol/L ABG O2 Saturation 97.1 H (94-97) % Sodium (137-145) mmol/L Chloride (98-107) mmol/L Carbon Dioxide (22-30) mmol/L BUN (7-17) mg/dL Creatinine (0.52-1.04) mg/dL Glucose (74-99) mg/dL POC Glucose (mg/dL) 144 H 150 H (70-110) mg/dL Calcium (8.4-10.2) mg/dL Magnesium (1.6-2.3) mg/dL 11/21/21 11/21/21 Range/Units 10:04 11:31 WBC (3.8-10.6) k/uL RBC (3.80-5.40) m/uL Hgb (11.4-16.0) gm/dL Hct (34.0-46.0) % RDW (11.5-15.5) % ABG pH (7.35-7.45) ABG pCO2 (35-45) mmHg ABG HCO3 (21-25) mmol/L ABG Total CO2 (19-24) mmol/L ABG O2 Saturation (94-97) % Sodium (137-145) mmol/L Chloride (98-107) mmol/L Carbon Dioxide (22-30) mmol/L BUN (7-17) mg/dL Creatinine (0.52-1.04) mg/dL Glucose (74-99) mg/dL POC Glucose (mg/dL) 156 H 152 H (70-110) mg/dL Calcium (8.4-10.2) mg/dL Magnesium (1.6-2.3) mg/dL Microbiology - Last 24 Hours (Table) 11/16/21 12:02 Blood Culture - Preliminary Blood No Growth after 96 hours 11/16/21 12:02 Blood Culture - Preliminary Blood No Growth after 96 hours Assessment and Plan Assessment: Impression: Acute hypoxic respiratory failure secondary to COVID-19 pneumonia and ARDS. Barotrauma with pneumomediastinum and subcutaneous emphysema, but no pneumothor ax. Expected. Septic shock requiring pressors in the form of norepinephrine and vasopressin. Cardiopulmonary arrest 2 requiring CPR 2 Acute metabolic encephalopathy and possible anoxic brain injury Current 19 infection 10/28/2021 at correction. Acute kidney injury, being followed by nephrology Benign essential hypertension Dyslipidemia Type 2 diabetes History of schizophrenia Hypothyroidism History of alcohol abuse History of marijuana use Chronic anemia Recommendation: Continue ventilatory support Continue sedation and paralysis Continue nutritional support Continue GI and DVT prophylaxis Continue to monitor electrolytes and inflammatory markers as well as renal profile Continue COVID-19 cocktail including Decadron Titrate FiO2 accordingly and once FiO2 is down to 50% and will titrate PEEP accordingly Continue insulin drip Condition remains very critical Discussed her condition with family members at bedside, and they will discuss this with and possibly may consider comfort care measures. Prognosis is extremely poor. Critical care time is over 30 minutes. Time with Patient: Greater than 30
[2021-11-21 13:51] LABS: Glucose,Whole Blood 167 mg/dL (70-110)
[2021-11-21 15:50] LABS: Glucose,Whole Blood 172 mg/dL (70-110)
[2021-11-21 16:31] LABS: African American GFR (CKD) >90 (>60 ml/min/1.73 sqM); Anion Gap 2 mmol/L; Blood Urea Nitrogen 63 mg/dL (7-17); Carbon Dioxide 35 mmol/L (22-30); Chloride 104 mmol/L (98-107); Glucose 160 mg/dL (74-99); Non-African American GFR(CKD) 88 (>60 ml/min/1.73 sqM); Potassium 4.1 mmol/L (3.5-5.1); Sodium 141 mmol/L (137-145)
[2021-11-21 18:03] LABS: Glucose,Whole Blood 146 mg/dL (70-110)
[2021-11-21 20:23] LABS: Glucose,Whole Blood 137 mg/dL (70-110)
[2021-11-21] MEDS: ATORVASTATIN 40 MG TAB PO SCH (20:29)
[2021-11-21 21:59] LABS: Glucose,Whole Blood 168 mg/dL (70-110)
[2021-11-22 00:17] LABS: Glucose,Whole Blood 160 mg/dL (70-110)
[2021-11-22] MEDS: CISATRACURIUM 200 MG in SODIUM CHLORIDE 0.9% 180 ML IV SCH ×2 (00:37→15:13)
[2021-11-22] MEDS: ARTIFICIAL TEARS-HYPROMELLOSE DROPS 15 ML BTL BOTH EYES SCH ×7 (02:30→23:57)
[2021-11-22 02:33] LABS: Glucose,Whole Blood 128 mg/dL (70-110)
[2021-11-22 03:31] LABS: Glucose,Whole Blood 144 mg/dL (70-110)
[2021-11-22] MEDS: CEFEPIME 2 GM in SODIUM CHLORIDE 0.9% 100 ML IVPB SCH ×3 (04:48→20:37)
[2021-11-22 05:20] LABS: Glucose,Whole Blood 154 mg/dL (70-110)
[2021-11-22 05:54] LABS: ALT 17 U/L (4-34); AST 23 U/L (14-36); African American GFR (CKD) >90 (>60 ml/min/1.73 sqM); Albumin 2.3 g/dL (3.5-5.0); Alkaline Phosphatase 55 U/L (38-126); Anion Gap 2 mmol/L; Blood Urea Nitrogen 64 mg/dL (7-17); Calcium 8.1 mg/dL (8.4-10.2); Carbon Dioxide 35 mmol/L (22-30); Chloride 104 mmol/L (98-107); Glucose 147 mg/dL (74-99); Non-African American GFR(CKD) >90 (>60 ml/min/1.73 sqM); Potassium 3.9 mmol/L (3.5-5.1); Sodium 141 mmol/L (137-145); Total Bilirubin 0.3 mg/dL (0.2-1.3); Total Protein 4.2 g/dL (6.3-8.2)
[2021-11-22 05:55] LABS: Anisocytosis Slight; HGB 7.4 gm/dL (11.4-16.0); Hypochromasia Marked; MCH 28.3 pg (25.0-35.0); MCHC 32.3 g/dL (31.0-37.0); MCV 87.5 fL (80.0-100.0); Mean Platelet Volume 9.3; Platelet Count 180 k/uL (150-450); Poikilocytosis Slight; RBC 2.63 m/uL (3.80-5.40); RDW 16.6 % (11.5-15.5)
[2021-11-22 06:09] LABS: ABG Base Excess 9.1 mmol/L; ABG HCO3 35 mmol/L (21-25); ABG Oxygen Saturation 90.4 % (94-97); ABG PH 7.31 (7.35-7.45); ABG TCO2 38 mmol/L (19-24); Allen Test Performed? Yes
[2021-11-22 06:15] LABS: ABG PCO2 71 mmHg (35-45)
[2021-11-22 06:16] LABS: ABG PO2 57 mmHg (83-108)
[2021-11-22] MEDS: NOREPINEPHRINE 32 MG in SODIUM CHLORIDE 0.9% 218 ML IV SCH ×3 (06:29→17:09)
[2021-11-22] MEDS: LEVOTHYROXINE 100 MCG TAB PO SCH (06:36)
[2021-11-22] MEDS: SODIUM CHLORIDE 0.9% 50 ML with VASOPRESSIN 20 UNIT IVPB SCH ×6 (06:48→23:28)
[2021-11-22 06:51] LABS: Band Neutrophils % 25 %; Lymphocytes # (M) 1.78 k/uL (1.0-4.8); Metamyelocytes % 2 %; Myelocytes # (M) 0.15 k/uL (0); Myelocytes % 1 %; Neutrophils % (M) 59 %; Nucleated Red Blood Cells 4 /100 WBC (0-0); Total Cells Counted 200; WBC 14.8 k/uL (3.8-10.6)
[2021-11-22 06:52] LABS: Polychromasia Present
[2021-11-22 06:57] LABS: Large Platelets Present
[2021-11-22] MEDS ORDERED: POTASSIUM BICARBONATE/CIT AC 20 MEQ TABLET.EFF NG-TUBE SCH (07:00)
[2021-11-22 07:54] LABS: Glucose,Whole Blood 168 mg/dL (70-110)
[2021-11-22] MEDS: FUROSEMIDE 10 MG/ML 4 ML VIAL IV SCH (08:09)
[2021-11-22] MEDS: CHLORHEXIDINE GLUCONATE 15 ML CUP MUCOUS MEM SCH ×2 (08:09→20:38)
[2021-11-22] MEDS: APIXABAN 5 MG TAB PO SCH ×2 (08:09→20:39)
[2021-11-22] MEDS: cloZAPine 100 MG TAB PO SCH ×3 (08:09→20:38)
[2021-11-22] MEDS: DEXAMETHASONE SOD PHOSPHATE 10 MG/ML 1 ML VIAL IVP SCH (08:09)
[2021-11-22] MEDS: ASPIRIN 81 MG PO SCH (08:09)
[2021-11-22] MEDS: lamoTRIgine 25 MG TAB PO SCH ×2 (08:10→20:38)
[2021-11-22] MEDS: PANTOPRAZOLE 40 MG/10 ML VIAL IV SCH (08:11)
[2021-11-22] MEDS: SODIUM CHLORIDE 0.9% 500 ML 500 ML IV SCH (08:11)
[2021-11-22] MEDS: THIAMINE 100 MG TAB PO SCH (08:11)
--- NOTE | 2021-11-22 08:14 | XR ---
EXAMINATION TYPE: XR chest 1V portable DATE OF EXAM: 11/22/2021 COMPARISON: Chest x-ray 11/21/2021 HISTORY: Intubated, pulmonary edema TECHNIQUE: Single frontal view of the chest is obtained. FINDINGS: Endotracheal tube, NG tube, left subclavian central venous catheter are stable. Extensive subcutaneous emphysema could obscure detail. Bilateral airspace disease is present similar to prior e xam, there are overlying artifacts, leads. No evident pneumothorax or pleural effusion. There is evid ence of pneumomediastinum. Cardiomediastinal silhouette is stable accounting for differences in techn ique. IMPRESSION: Findings not changed appreciably. Correlate for pneumonia, edema, ARDS.
--- NOTE | 2021-11-22 08:34 | P.PN ---
Subjective Patient is seen in follow-up for acute kidney injury. Patient had a cardiac arrest this admission. She is currently intubated. She remains on Levophed and vasopressin. Renal function back to baseline. Receiving tube feeds. Sodium level 141. On 55% FiO2 and high PEEP. Vital signs are stable. General: Resting in bed. On vasopressor support. HEENT: Intubated. LUNGS: Breath sounds decreased. HEART: Regular rate and rhythm. ABDOMEN: Soft, no distention. EXTREMITITES: Trace edema. Objective - Vital Signs Vital signs: Vital Signs Temp 96.9 F L 11/22/21 04:00 Pulse 75 11/22/21 07:00 Resp 32 H 11/22/21 07:00 BP 106/52 11/22/21 07:00 Pulse Ox 89 L 11/22/21 07:00 FiO2 55 11/22/21 07:10 Intake & Output 11/21/21 11/22/21 11/22/21 18:59 06:59 18:59 Intake Total 3652.738 2677.674 22.143 Output Total 3275 1160 Balance 108.543 8570.674 22.143 Weight 107.9 kg 111.5 kg Intake: IV 960 350 Cefepime 2 gm In Sodium 100 200 Chloride 0.9% 100 ml @ 25 mls/hr IVPB Q12HR DENISSE Rx #:[id number] D5W 600 Sodium Chloride 0.9 260 150 Intake, IV Titration 432.738 625.674 22.143 Amount Cisatracurium 200 mg In 28.858 45.446 Sodium Chloride 0.9% 180 ml @ 1 MCG/KG/MIN 5.184 mls/hr IV .Q24H DENISSE Rx#: [id number] Insulin Regular 100 unit 45.163 20.907 4.444 In Sodium Chloride 0.9% 100 ml @ Per Protocol IV .Q0M DENISSE Rx#:[id number] Norepinephrine 32 mg In 259.321 17.699 Sodium Chloride 0.9% 218 ml @ 0.84 MCG/KG/MIN 34. 02 mls/hr IV .Q7H21M DENISSE Rx#:[id number] propofoL 1,000 mg In 358.717 300 Empty Bag 1 bag @ 5 MCG/ KG/MIN 2.592 mls/hr IV . Q24H DENISSE Rx#:[id number] Oral 400 Tube Feeding 660 492 Other 1200 1210 Output: Urine 0705 1160 Other: Voiding Method Indwelling Catheter Indwelling Catheter ABP, PAP, CO, CI - Last Documented Arterial Blood Pressure 122/51 - Labs CBC & Chem 7: 11/22/21 05:15 11/22/21 05:15 Labs: Abnormal Lab Results - Last 24 Hours (Table) 11/21/21 11/21/21 11/21/21 Range/Units 10:04 11:31 13:49 WBC (3.8-10.6) k/uL RBC (3.80-5.40) m/uL Hgb (11.4-16.0) gm/dL Hct (34.0-46.0) % RDW (11.5-15.5) % Neutrophils # (Manual) (1.3-7.7) k/uL Metamyelocytes # (Man) (0) k/uL Myelocytes # (Manual) (0) k/uL Nucleated RBCs (0-0) /100 WBC ABG pH (7.35-7.45) ABG pCO2 (35-45) mmHg ABG pO2 (83-108) mmHg ABG HCO3 (21-25) mmol/L ABG Total CO2 (19-24) mmol/L ABG O2 Saturation (94-97) % Carbon Dioxide (22-30) mmol/L BUN (7-17) mg/dL Glucose (74-99) mg/dL POC Glucose (mg/dL) 156 H 152 H 167 H (70-110) mg/dL Calcium (8.4-10.2) mg/dL Total Protein (6.3-8.2) g/dL Albumin (3.5-5.0) g/dL 11/21/21 11/21/21 11/21/21 Range/Units 15:45 15:48 18:03 WBC (3.8-10.6) k/uL RBC (3.80-5.40) m/uL Hgb (11.4-16.0) gm/dL Hct (34.0-46.0) % RDW (11.5-15.5) % Neutrophils # (Manual) (1.3-7.7) k/uL Metamyelocytes # (Man) (0) k/uL Myelocytes # (Manual) (0) k/uL Nucleated RBCs (0-0) /100 WBC ABG pH (7.35-7.45) ABG pCO2 (35-45) mmHg ABG pO2 (83-108) mmHg ABG HCO3 (21-25) mmol/L ABG Total CO2 (19-24) mmol/L ABG O2 Saturation (94-97) % Carbon Dioxide 35 H (22-30) mmol/L BUN 63 H (7-17) mg/dL Glucose 160 H (74-99) mg/dL POC Glucose (mg/dL) 172 H 146 H (70-110) mg/dL Calcium 8.0 L (8.4-10.2) mg/dL Total Protein (6.3-8.2) g/dL Albumin (3.5-5.0) g/dL 11/21/21 11/21/21 11/22/21 Range/Units 20:22 21:57 00:14 WBC (3.8-10.6) k/uL RBC (3.80-5.40) m/uL Hgb (11.4-16.0) gm/dL Hct (34.0-46.0) % RDW (11.5-15.5) % Neutrophils # (Manual) (1.3-7.7) k/uL Metamyelocytes # (Man) (0) k/uL Myelocytes # (Manual) (0) k/uL Nucleated RBCs (0-0) /100 WBC ABG pH (7.35-7.45) ABG pCO2 (35-45) mmHg ABG pO2 (83-108) mmHg ABG HCO3 (21-25) mmol/L ABG Total CO2 (19-24) mmol/L ABG O2 Saturation (94-97) % Carbon Dioxide (22-30) mmol/L BUN (7-17) mg/dL Glucose (74-99) mg/dL POC Glucose (mg/dL) 137 H 168 H 160 H (70-110) mg/dL Calcium (8.4-10.2) mg/dL Total Protein (6.3-8.2) g/dL Albumin (3.5-5.0) g/dL 11/22/21 11/22/21 11/22/21 Range/Units 02:31 03:29 05:13 WBC (3.8-10.6) k/uL RBC (3.80-5.40) m/uL Hgb (11.4-16.0) gm/dL Hct (34.0-46.0) % RDW (11.5-15.5) % Neutrophils # (Manual) (1.3-7.7) k/uL Metamyelocytes # (Man) (0) k/uL Myelocytes # (Manual) (0) k/uL Nucleated RBCs (0-0) /100 WBC ABG pH (7.35-7.45) ABG pCO2 (35-45) mmHg ABG pO2 (83-108) mmHg ABG HCO3 (21-25) mmol/L ABG Total CO2 (19-24) mmol/L ABG O2 Saturation (94-97) % Carbon Dioxide (22-30) mmol/L BUN (7-17) mg/dL Glucose (74-99) mg/dL POC Glucose (mg/dL) 128 H 144 H 154 H (70-110) mg/dL Calcium (8.4-10.2) mg/dL Total Protein (6.3-8.2) g/dL Albumin (3.5-5.0) g/dL 11/22/21 11/22/21 11/22/21 Range/Units 05:15 05:15 06:06 WBC 14.8 H (3.8-10.6) k/uL RBC 2.63 L (3.80-5.40) m/uL Hgb 7.4 L (11.4-16.0) gm/dL Hct 23.0 L (34.0-46.0) % RDW 16.6 H (11.5-15.5) % Neutrophils # (Manual) 12.40 H (1.3-7.7) k/uL Metamyelocytes # (Man) 0.30 H (0) k/uL Myelocytes # (Manual) 0.15 H (0) k/uL Nucleated RBCs 4 H (0-0) /100 WBC ABG pH 7.31 L (7.35-7.45) ABG pCO2 71 H* (35-45) mmHg ABG pO2 57 L* (83-108) mmHg ABG HCO3 35 H (21-25) mmol/L ABG Total CO2 38 H (19-24) mmol/L ABG O2 Saturation 90.4 L (94-97) % Carbon Dioxide 35 H (22-30) mmol/L BUN 64 H (7-17) mg/dL Glucose 147 H (74-99) mg/dL POC Glucose (mg/dL) (70-110) mg/dL Calcium 8.1 L (8.4-10.2) mg/dL Total Protein 4.2 L (6.3-8.2) g/dL Albumin 2.3 L (3.5-5.0) g/dL 11/22/21 Range/Units 07:52 WBC (3.8-10.6) k/uL RBC (3.80-5.40) m/uL Hgb (11.4-16.0) gm/dL Hct (34.0-46.0) % RDW (11.5-15.5) % Neutrophils # (Manual) (1.3-7.7) k/uL Metamyelocytes # (Man) (0) k/uL Myelocytes # (Manual) (0) k/uL Nucleated RBCs (0-0) /100 WBC ABG pH (7.35-7.45) ABG pCO2 (35-45) mmHg ABG pO2 (83-108) mmHg ABG HCO3 (21-25) mmol/L ABG Total CO2 (19-24) mmol/L ABG O2 Saturation (94-97) % Carbon Dioxide (22-30) mmol/L BUN (7-17) mg/dL Glucose (74-99) mg/dL POC Glucose (mg/dL) 168 H (70-110) mg/dL Calcium (8.4-10.2) mg/dL Total Protein (6.3-8.2) g/dL Albumin (3.5-5.0) g/dL Microbiology - Last 24 Hours (Table) 11/16/21 12:02 Blood Culture - Preliminary Blood No Growth after 120 hours 11/16/21 12:02 Blood Culture - Preliminary Blood No Growth after 120 hours Assessment and Plan Plan: Assessment: 1. Acute kidney injury secondary to ATN secondary to cardiac arrest/shock. Resolved. Renal function resolved. Nonoliguric. No hydronephrosis noted on kidney ultrasound. 2. Hypernatremia from lack of oral water intake. Improved. 3. Acute hypercapnic respiratory failure. Improved. 4. Status post cardiac arrest this admission. 5. Recent coronavirus infection. 6. Acute blood loss anemia. No active bleeding. Status post blood transfusion this admission. Iron replete. 7. Hypokalemia from poor intake. Magnesium normal. 8. Volume overload. Receiving IV Lasix. Plan: Maintain tube feeds. Maintain free water flushes at 400 mL every 4 hours. D5W discontinued. Wean FiO2 and vasopressors. Avoid nephrotoxins. Continue to monitor renal function and urine output. Cortisol level not low data 11/08/2021. Currently on dexamethasone. Potassium being replaced per protocol.
[2021-11-22] MEDS: INSULIN DETEMIR (LEVEMIR) 100 UNIT/ML SYR SQ SCH (09:51)
--- NOTE | 2021-11-22 11:22 | P.PN ---
Subjective Progress Note Date: 11/22/21 The patient is seen at bedside and per the nurse the still wants to continue with medical management and he feels patient will make a recovery. Currently she is on IV Nimbex 1mcg/kg/min and IV Propofol 55mcg/kg/min. Objective - Vital Signs Vital signs: Vital Signs Temp 97.6 F 11/22/21 08:00 Pulse 75 11/22/21 10:00 Resp 32 H 11/22/21 10:00 BP 107/52 11/22/21 10:00 Pulse Ox 92 L 11/22/21 10:00 FiO2 60 11/22/21 10:31 Intake & Output 11/21/21 11/22/21 11/22/21 18:59 06:59 18:59 Intake Total 3652.738 2677.674 741.323 Output Total 3275 1160 1090 Balance 764.457 7674.674 -348.677 Weight 107.9 kg 111.5 kg Intake: IV 960 350 60 Cefepime 2 gm In Sodium 100 200 Chloride 0.9% 100 ml @ 25 mls/hr IVPB Q12HR DENISSE Rx #:[id number] D5W 600 Sodium Chloride 0.9 260 150 60 Intake, IV Titration 432.738 625.674 158.323 Amount Cisatracurium 200 mg In 28.858 45.446 Sodium Chloride 0.9% 180 ml @ 1 MCG/KG/MIN 5.184 mls/hr IV .Q24H DENISSE Rx#: [id number] Insulin Regular 100 unit 45.163 20.907 4.444 In Sodium Chloride 0.9% 100 ml @ Per Protocol IV .Q0M DENISSE Rx#:[id number] Norepinephrine 32 mg In 259.321 53.879 Sodium Chloride 0.9% 218 ml @ 0.84 MCG/KG/MIN 34. 02 mls/hr IV .Q7H21M DENISSE Rx#:[id number] propofoL 1,000 mg In 358.717 300 100 Empty Bag 1 bag @ 5 MCG/ KG/MIN 2.592 mls/hr IV . Q24H DENISSE Rx#:[id number] Oral 400 Tube Feeding 660 492 123 Other 1200 1210 400 Output: Urine 3275 1160 1090 Other: Voiding Method Indwelling Catheter Indwelling Catheter Indwelling Catheter ABP, PAP, CO, CI - Last Documented Arterial Blood Pressure 120/54 - Exam GENERAL: The patient is lying in bed and does not seem in acute distress.. LUNG: Intubated on vent and requiring high PEEP EXTREMITIES: Has crackling sensation on palpation of bilateral uppers proximal (left > right). NEUROLOGICAL: Limited. IV Nimbex 1mcg/kg/min and IV Propofol 55mcg/kg/min. Higher mental function: Is comatose. Cranial nerves:Pupils are pinpoint and no reactive to light. Is breathing at vent. Motor: Unable to asssess. Cerebellum: Unable to assess. Sensation: Unable to assess. - Labs CBC & Chem 7: 11/22/21 05:15 11/22/21 05:15 Labs: Abnormal Lab Results - Last 24 Hours (Table) 11/21/21 11/21/21 11/21/21 Range/Units 11:31 13:49 15:45 WBC (3.8-10.6) k/uL RBC (3.80-5.40) m/uL Hgb (11.4-16.0) gm/dL Hct (34.0-46.0) % RDW (11.5-15.5) % Neutrophils # (Manual) (1.3-7.7) k/uL Metamyelocytes # (Man) (0) k/uL Myelocytes # (Manual) (0) k/uL Nucleated RBCs (0-0) /100 WBC ABG pH (7.35-7.45) ABG pCO2 (35-45) mmHg ABG pO2 (83-108) mmHg ABG HCO3 (21-25) mmol/L ABG Total CO2 (19-24) mmol/L ABG O2 Saturation (94-97) % Carbon Dioxide 35 H (22-30) mmol/L BUN 63 H (7-17) mg/dL Glucose 160 H (74-99) mg/dL POC Glucose (mg/dL) 152 H 167 H (70-110) mg/dL Calcium 8.0 L (8.4-10.2) mg/dL Total Protein (6.3-8.2) g/dL Albumin (3.5-5.0) g/dL 11/21/21 11/21/21 11/21/21 Range/Units 15:48 18:03 20:22 WBC (3.8-10.6) k/uL RBC (3.80-5.40) m/uL Hgb (11.4-16.0) gm/dL Hct (34.0-46.0) % RDW (11.5-15.5) % Neutrophils # (Manual) (1.3-7.7) k/uL Metamyelocytes # (Man) (0) k/uL Myelocytes # (Manual) (0) k/uL Nucleated RBCs (0-0) /100 WBC ABG pH (7.35-7.45) ABG pCO2 (35-45) mmHg ABG pO2 (83-108) mmHg ABG HCO3 (21-25) mmol/L ABG Total CO2 (19-24) mmol/L ABG O2 Saturation (94-97) % Carbon Dioxide (22-30) mmol/L BUN (7-17) mg/dL Glucose (74-99) mg/dL POC Glucose (mg/dL) 172 H 146 H 137 H (70-110) mg/dL Calcium (8.4-10.2) mg/dL Total Protein (6.3-8.2) g/dL Albumin (3.5-5.0) g/dL 11/21/21 11/22/21 11/22/21 Range/Units 21:57 00:14 02:31 WBC (3.8-10.6) k/uL RBC (3.80-5.40) m/uL Hgb (11.4-16.0) gm/dL Hct (34.0-46.0) % RDW (11.5-15.5) % Neutrophils # (Manual) (1.3-7.7) k/uL Metamyelocytes # (Man) (0) k/uL Myelocytes # (Manual) (0) k/uL Nucleated RBCs (0-0) /100 WBC ABG pH (7.35-7.45) ABG pCO2 (35-45) mmHg ABG pO2 (83-108) mmHg ABG HCO3 (21-25) mmol/L ABG Total CO2 (19-24) mmol/L ABG O2 Saturation (94-97) % Carbon Dioxide (22-30) mmol/L BUN (7-17) mg/dL Glucose (74-99) mg/dL POC Glucose (mg/dL) 168 H 160 H 128 H (70-110) mg/dL Calcium (8.4-10.2) mg/dL Total Protein (6.3-8.2) g/dL Albumin (3.5-5.0) g/dL 11/22/21 11/22/21 11/22/21 Range/Units 03:29 05:13 05:15 WBC 14.8 H (3.8-10.6) k/uL RBC 2.63 L (3.80-5.40) m/uL Hgb 7.4 L (11.4-16.0) gm/dL Hct 23.0 L (34.0-46.0) % RDW 16.6 H (11.5-15.5) % Neutrophils # (Manual) 12.40 H (1.3-7.7) k/uL Metamyelocytes # (Man) 0.30 H (0) k/uL Myelocytes # (Manual) 0.15 H (0) k/uL Nucleated RBCs 4 H (0-0) /100 WBC ABG pH (7.35-7.45) ABG pCO2 (35-45) mmHg ABG pO2 (83-108) mmHg ABG HCO3 (21-25) mmol/L ABG Total CO2 (19-24) mmol/L ABG O2 Saturation (94-97) % Carbon Dioxide (22-30) mmol/L BUN (7-17) mg/dL Glucose (74-99) mg/dL POC Glucose (mg/dL) 144 H 154 H (70-110) mg/dL Calcium (8.4-10.2) mg/dL Total Protein (6.3-8.2) g/dL Albumin (3.5-5.0) g/dL 11/22/21 11/22/21 11/22/21 Range/Units 05:15 06:06 07:52 WBC (3.8-10.6) k/uL RBC (3.80-5.40) m/uL Hgb (11.4-16.0) gm/dL Hct (34.0-46.0) % RDW (11.5-15.5) % Neutrophils # (Manual) (1.3-7.7) k/uL Metamyelocytes # (Man) (0) k/uL Myelocytes # (Manual) (0) k/uL Nucleated RBCs (0-0) /100 WBC ABG pH 7.31 L (7.35-7.45) ABG pCO2 71 H* (35-45) mmHg ABG pO2 57 L* (83-108) mmHg ABG HCO3 35 H (21-25) mmol/L ABG Total CO2 38 H (19-24) mmol/L ABG O2 Saturation 90.4 L (94-97) % Carbon Dioxide 35 H (22-30) mmol/L BUN 64 H (7-17) mg/dL Glucose 147 H (74-99) mg/dL POC Glucose (mg/dL) 168 H (70-110) mg/dL Calcium 8.1 L (8.4-10.2) mg/dL Total Protein 4.2 L (6.3-8.2) g/dL Albumin 2.3 L (3.5-5.0) g/dL Microbiology - Last 24 Hours (Table) 11/16/21 12:02 Blood Culture - Preliminary Blood No Growth after 120 hours 11/16/21 12:02 Blood Culture - Preliminary Blood No Growth after 120 hours Assessment and Plan Assessment: Encephalopathy seems due to multifactorial: Predominately hypoxic encephalopathy due to COVID-19 pneumonia. Also component of metabolic encephalopathy (hypernatremia, JAYLA). Encephalopathy also due to medication effect (IV Propofol and Nimbex). Status post cardiac arrest with downtime of 10 minutes. Probable anoxic encephalopathy superimposed on pre-existing metabolic encephalopathy Significant Emphysema History of seizure and she had a seizure about 6-8 years ago (blank stares) while ?reported GTC on 03/15/2021 (but her 2.5 hour EEG and routine EEG was negative for seizure or epileptiform discharges) Acute hypoxemic respiratory failure secondary due to pneumonia Acute hypernatremia--resolved JAYLA--resolved Recent [place] virus infection History of diabetes History of hyperthyroid Schizoaffective disorder Primary history of tobacco use History of heavy alcohol use History of marijuana use Plan: * EEG was performed, which was abnormal due to background slowing of moderate to severe degree. This is suggestive of generalized cerebral dysfunction, as can be seen with toxic metabolic encephalopathy or due to diffuse structural brain abnormality. Clinical correlation recommended. No epileptiform activity was seen. * CT head repeat on 11/19/2021: It is reported as no acute intracranial process. Subcutaneous emphysema tracking into the skull base myofascial planes. Of note during this hospital stay patient has significant respiratory issues and has emphysema. * Repeat CT head: It is reported as age-related atrophic and chronic small vessel ischemic change without acute intracranial process seen at this time. I personally reviewed the CT of the head and I don't feel there is any change compared to prior. * Patient is on Eliquis, also on aspirin 81 mg and Lipitor 40 mg daily. * Nephrology team is on board * We'll defer the rest of the medical management to the primary and ICU team * Prognosis is poor. * Patient is NO CODE. * Patient wants to continue medical management. The plan is discussed with her nurse. Breezy Orozco M.D. Neuro-Hospitalist Time with Patient: Less than 30
[2021-11-22 11:48] LABS: Glucose,Whole Blood 258 mg/dL (70-110)
[2021-11-22] MEDS: INSULIN ASPART (NovoLOG) 100 UNIT/ML VIAL SQ SCH ×4 (11:58→23:56)
--- NOTE | 2021-11-22 11:59 | P.PN ---
Subjective Progress Note Date: 11/22/21 Principal diagnosis: Acute hypoxic respiratory failure, COVID-19 pneumonia, ARDS 50-year-old female, who is brought in by the [place] emergency services. She apparently resides at [facility] in that area. She apparently has a history of schizophrenia, as well as a history of recent infection with coronavirus. The patient was brought in because of mental status changes, and also low saturations. Apparently the patient was evaluated there and thought to have pneumonia. The patient was treated with Levaquin here. Currently, she seen in the emergency room, room 11. She is on 15 L high flow oxygen. She's getting saline at 75 mL an hour. I did have the opportunity to speak to the patient's , name Art. He was able to provide some history . The [facility] is at the [facility] as mentioned above, but is unable to prepare food for herself. Her mental status varies hour to hour and day today according to him. The patient herself can give me no history. She sees been here in the emergency department, she's been moaning and groaning. Her chest x- ray shows bilateral patchy infiltrates. A blood gas was done and showed a pO2 of 89, pCO2 35, and pH is 7.332. She apparently has a history of diabetes, hypertension, hyperlipidemia, and hypothyroidism. White count 11.5, hemoglobin 12.6, hematocrit 41.3, with a normal platelet count. Sodium 157, potassium 4.3, chlorides 124, CO2 19, anion gap 14, BUN 50, creatinine 2.04. Her lactic acid was 1.2. Pro-calcitonin level is pending. Urine is yellow and cloudy. There is 1+ protein. Trace blood. Small positive leukocyte esterase, 7 RBCs, 9 WBCs, and many bacteria. Chest x-ray shows patchy bilateral infiltrates. 11/20/2021, the patient is being seen for a follow-up in the intensive care unit for COVID 19 related pneumonia/ARDS and respiratory complications related to COVID 19 infection.. The patient is on propofol which is running at 55 mcg/kg per minute. The patient is currently off Nimbex. The patient was taken off Nimbex yesterday and the patient remains quite synchronous and still on a mechanical ventilator. There has been no signs of any neurologic recovery at this point in time. The patient remains completely unresponsive. The patient underwent a CAT scan of the brain yesterday that showed no acute abnormalities. The patient remains on assist-control mode of mechanical ventilation and the patient is currently on assist-control at the rate of 32, tidal volume of 375, FiO2 is at 60% with a PEEP of 22. Peak airway pressure is 38. Chest x-ray showed diffuse bilateral pulmonary infiltrates along with that there is subcutaneous emphysema extensively in the anterior chest on the neck area. No major change in the x-ray findings. Blood gases from today shows a pH of 7.29 with a pCO2 of 69 and pO2 of 56. The patient's acidosis is improved as the patient was given bicarb infusion. The pH is improved. Pressor requirements have also improved and the patient is on levo fed 0.2 mics respiratory per minute and the patient is on a physiologic dose of vasopressin at 0.03 units an hour. The patient is developing significant amount of third spacing and on today's labs the patient is a component of hypo-or uremic hypernatremia. The patient was started on D5 water at the rate of 60 mL an hour and the patient is also receiving free water through the NG replaced the free water deficit. Input output balance over the past 24 hours is positive for 0.6 L. The patient's sodium is at 150 with a potassium level of 3.4 and a BUN of 61 and a creatinine of 1.08. The white cell count is at 40 with a hemoglobin of 8.1. The patient remains on vital high protein at the rate of 55 mL an hour. She is afebrile. Pressor requirements are less. DNR/DNI CODE STATUS. Remains on Decadron. Today on 11/21/2021, patient remains in the ICU, intubated and mechanically ventilated. She is sedated, on propofol, off Nimbex, however patient needs to go back on Nimbex. Patient is on assist control rate of 3 to tidal volume 375 FiO2 60% and PEEP of 22. And after reviewing her ABG which showed a pO2 of 88 pCO2 70 pH of 7.29, I decreased her FiO2 to 55%. I have also increased her propofol to 75 mcg/kg/m, and I restarted the patient on Nimbex. CODE STATUS was changed to DO NOT RESUSCITATE CODE STATUS, and today I had a long discussion with family members and they seem to be inclined to consider possibly comfort care measures. Patient remains on norepinephrine at 0.25 mcg/kg/m vasopressin at 0.03 units per minute propofol presently at 55 mcg/kg/m insulin at 3 units per hour patient is on enteral feeding. She is on cefepime, eliquis, Lasix 40 mg IV push daily, and Decadron 6 mg IV push daily. Patient was intubated on 11/15, and since then she had cardiac arrest 2. Patient obviously sustained some severe metabolic encephalopathy and CT of the brain is basically nondiagnostic. Being followed by neurology on consultation. Chest x-ray today continues to show ARDS, and subcutaneous emphysema. WBC count is 14.1 hemoglobin 7.3 basic metabolic profile is normal BUN is 61 creatinine 0.94, last pro-calcitonin was 0.10. MedicationsShe is on eliquis, atorvastatin, cefepime, Peridex, Nimbex was restarted, she is also on clozapine, Decadron 6 mg IV push daily, Lasix 40 mg IV push daily Lamictal 25 mg twice a day Protonix 40 mg IV push daily, she is also on propofol, thiamine, norepinephrine and vasopressin Patient was reevaluated today on 11/22/2021, patient remains in the ICU, intubated and mechanically ventilated. She is on assist control rate of 3 to tidal volume 375 FiO2 55% and PEEP of 22. ABG showed a pO2 of 67 pCO2 71 pH of 7.31 hence I increased the FiO2 up to 60% and the PEEP went down to 20. Patient remains on multiple drips including Nimbex at 20 mcg/kg/min, propofol at 55 mcg/kg/m norepinephrine at 0.4 mcg/kg/m vasopressin at 0.03 units per minute and she is on IV fluid 0.9 normal saline at KVO. Patient is also on enteral feeding receiving vital AF at 41 mL per hour. She is also getting free water 400 mL every 4 hours. Her peak airway pressure today is 42+ to pressure is 40 consistent with severe ARDS. Chest x-ray continues to show bilateral interstitial infiltrates and significant subcutaneous emphysema. Overall not much of a change noted over the last 24 hours. Patient is practically above the same. She remains critically ill and she has severe poor prognosis. Patient was made DO NOT RESUSCITATE per family and based on my discussion with the family yesterday, apparently the is not yet ready to consider comfort care measures. He is very well aware of the poor prognosis. Labs today showed WBC count of 14.8 hemoglobin 7.4. Basic metabolic profile is normal BUN is 64 creatinine 0.74. ABG as noted above Objective - Vital Signs Vital signs: Vital Signs Temp 97.6 F 11/22/21 08:00 Pulse 74 11/22/21 11:00 Resp 32 H 11/22/21 11:00 BP 103/46 11/22/21 11:00 Pulse Ox 91 L 11/22/21 11:00 FiO2 60 11/22/21 10:31 Intake & Output 11/21/21 11/22/21 11/22/21 18:59 06:59 18:59 Intake Total 3652.738 2677.674 802.323 Output Total 3275 1160 1615 Balance 094.536 1154.674 -812.677 Weight 107.9 kg 111.5 kg Intake: IV 960 350 80 Cefepime 2 gm In Sodium 100 200 Chloride 0.9% 100 ml @ 25 mls/hr IVPB Q12HR DENISSE Rx #:[id number] D5W 600 Sodium Chloride 0.9 260 150 80 Intake, IV Titration 432.738 625.674 158.323 Amount Cisatracurium 200 mg In 28.858 45.446 Sodium Chloride 0.9% 180 ml @ 1 MCG/KG/MIN 5.184 mls/hr IV .Q24H DENISSE Rx#: [id number] Insulin Regular 100 unit 45.163 20.907 4.444 In Sodium Chloride 0.9% 100 ml @ Per Protocol IV .Q0M DENISSE Rx#:[id number] Norepinephrine 32 mg In 259.321 53.879 Sodium Chloride 0.9% 218 ml @ 0.84 MCG/KG/MIN 34. 02 mls/hr IV .Q7H21M DENISSE Rx#:[id number] propofoL 1,000 mg In 358.717 300 100 Empty Bag 1 bag @ 5 MCG/ KG/MIN 2.592 mls/hr IV . Q24H DENISSE Rx#:[id number] Oral 400 Tube Feeding 660 492 164 Other 1200 1210 400 Output: Urine 3275 1160 1615 Other: Voiding Method Indwelling Catheter Indwelling Catheter Indwelling Catheter ABP, PAP, CO, CI - Last Documented Arterial Blood Pressure 107/47 - Exam Physical Exam: Revealed a 60-year-old female, obese, intubated, mechanically ventilated, sedated, and paralyzed Head: Atraumatic, normocephalic. Endotracheal tube and orogastric tube is intact. Subcutaneous emphysema is basically the same. HEENT: Short obese neck. [Neck is supple.] [No neck masses.] [No thyromegaly.] [No JVD.] Chest: [Symmetrical chest expansion, crackles and rhonchi noted bilaterally. No wheezing Cardiac Exam: Distant S1 and S2, no S3 gallop, no murmur. Abdomen: Obese, [Soft, nontender, no megaly, no rebound, no guarding, normal bowel sounds.] Extremities: [No clubbing, no edema, no cyanosis.] Good pulses bilaterally. Neurological Exam: Unable to assess, patient is sedated, he is on propofol, and Nimbex was admitted this morning. Psychiatric: Could not be assessed. - Labs CBC & Chem 7: 11/22/21 05:15 11/22/21 05:15 Labs: Abnormal Lab Results - Last 24 Hours (Table) 11/21/21 11/21/21 11/21/21 Range/Units 13:49 15:45 15:48 WBC (3.8-10.6) k/uL RBC (3.80-5.40) m/uL Hgb (11.4-16.0) gm/dL Hct (34.0-46.0) % RDW (11.5-15.5) % Neutrophils # (Manual) (1.3-7.7) k/uL Metamyelocytes # (Man) (0) k/uL Myelocytes # (Manual) (0) k/uL Nucleated RBCs (0-0) /100 WBC ABG pH (7.35-7.45) ABG pCO2 (35-45) mmHg ABG pO2 (83-108) mmHg ABG HCO3 (21-25) mmol/L ABG Total CO2 (19-24) mmol/L ABG O2 Saturation (94-97) % Carbon Dioxide 35 H (22-30) mmol/L BUN 63 H (7-17) mg/dL Glucose 160 H (74-99) mg/dL POC Glucose (mg/dL) 167 H 172 H (70-110) mg/dL Calcium 8.0 L (8.4-10.2) mg/dL Total Protein (6.3-8.2) g/dL Albumin (3.5-5.0) g/dL 11/21/21 11/21/21 11/21/21 Range/Units 18:03 20:22 21:57 WBC (3.8-10.6) k/uL RBC (3.80-5.40) m/uL Hgb (11.4-16.0) gm/dL Hct (34.0-46.0) % RDW (11.5-15.5) % Neutrophils # (Manual) (1.3-7.7) k/uL Metamyelocytes # (Man) (0) k/uL Myelocytes # (Manual) (0) k/uL Nucleated RBCs (0-0) /100 WBC ABG pH (7.35-7.45) ABG pCO2 (35-45) mmHg ABG pO2 (83-108) mmHg ABG HCO3 (21-25) mmol/L ABG Total CO2 (19-24) mmol/L ABG O2 Saturation (94-97) % Carbon Dioxide (22-30) mmol/L BUN (7-17) mg/dL Glucose (74-99) mg/dL POC Glucose (mg/dL) 146 H 137 H 168 H (70-110) mg/dL Calcium (8.4-10.2) mg/dL Total Protein (6.3-8.2) g/dL Albumin (3.5-5.0) g/dL 11/22/21 11/22/21 11/22/21 Range/Units 00:14 02:31 03:29 WBC (3.8-10.6) k/uL RBC (3.80-5.40) m/uL Hgb (11.4-16.0) gm/dL Hct (34.0-46.0) % RDW (11.5-15.5) % Neutrophils # (Manual) (1.3-7.7) k/uL Metamyelocytes # (Man) (0) k/uL Myelocytes # (Manual) (0) k/uL Nucleated RBCs (0-0) /100 WBC ABG pH (7.35-7.45) ABG pCO2 (35-45) mmHg ABG pO2 (83-108) mmHg ABG HCO3 (21-25) mmol/L ABG Total CO2 (19-24) mmol/L ABG O2 Saturation (94-97) % Carbon Dioxide (22-30) mmol/L BUN (7-17) mg/dL Glucose (74-99) mg/dL POC Glucose (mg/dL) 160 H 128 H 144 H (70-110) mg/dL Calcium (8.4-10.2) mg/dL Total Protein (6.3-8.2) g/dL Albumin (3.5-5.0) g/dL 11/22/21 11/22/21 11/22/21 Range/Units 05:13 05:15 05:15 WBC 14.8 H (3.8-10.6) k/uL RBC 2.63 L (3.80-5.40) m/uL Hgb 7.4 L (11.4-16.0) gm/dL Hct 23.0 L (34.0-46.0) % RDW 16.6 H (11.5-15.5) % Neutrophils # (Manual) 12.40 H (1.3-7.7) k/uL Metamyelocytes # (Man) 0.30 H (0) k/uL Myelocytes # (Manual) 0.15 H (0) k/uL Nucleated RBCs 4 H (0-0) /100 WBC ABG pH (7.35-7.45) ABG pCO2 (35-45) mmHg ABG pO2 (83-108) mmHg ABG HCO3 (21-25) mmol/L ABG Total CO2 (19-24) mmol/L ABG O2 Saturation (94-97) % Carbon Dioxide 35 H (22-30) mmol/L BUN 64 H (7-17) mg/dL Glucose 147 H (74-99) mg/dL POC Glucose (mg/dL) 154 H (70-110) mg/dL Calcium 8.1 L (8.4-10.2) mg/dL Total Protein 4.2 L (6.3-8.2) g/dL Albumin 2.3 L (3.5-5.0) g/dL 11/22/21 11/22/21 11/22/21 Range/Units 06:06 07:52 11:48 WBC (3.8-10.6) k/uL RBC (3.80-5.40) m/uL Hgb (11.4-16.0) gm/dL Hct (34.0-46.0) % RDW (11.5-15.5) % Neutrophils # (Manual) (1.3-7.7) k/uL Metamyelocytes # (Man) (0) k/uL Myelocytes # (Manual) (0) k/uL Nucleated RBCs (0-0) /100 WBC ABG pH 7.31 L (7.35-7.45) ABG pCO2 71 H* (35-45) mmHg ABG pO2 57 L* (83-108) mmHg ABG HCO3 35 H (21-25) mmol/L ABG Total CO2 38 H (19-24) mmol/L ABG O2 Saturation 90.4 L (94-97) % Carbon Dioxide (22-30) mmol/L BUN (7-17) mg/dL Glucose (74-99) mg/dL POC Glucose (mg/dL) 168 H 258 H (70-110) mg/dL Calcium (8.4-10.2) mg/dL Total Protein (6.3-8.2) g/dL Albumin (3.5-5.0) g/dL Microbiology - Last 24 Hours (Table) 11/16/21 12:02 Blood Culture - Preliminary Blood No Growth after 120 hours 11/16/21 12:02 Blood Culture - Preliminary Blood No Growth after 120 hours Assessment and Plan Assessment: Impression: Acute hypoxic respiratory failure secondary to COVID-19 pneumonia and ARDS. Barotrauma with pneumomediastinum and subcutaneous emphysema, but no pneumothorax. Expected. Septic shock requiring pressors in the form of norepinephrine and vasopressin. Cardiopulmonary arrest 2 requiring CPR 2 Acute metabolic encephalopathy and possible anoxic brain injury Current 19 infection [facility] at [facility]. Acute kidney injury, being followed by nephrology Benign essential hypertension Dyslipidemia Type 2 diabetes History of schizophrenia Hypothyroidism History of alcohol abuse History of marijuana use Chronic anemia Recommendation: Continue ventilatory support, FiO2 increased to 60% and PEEP now is at 20. Continue sedation and paralysis Continue nutritional support Continue GI and DVT prophylaxis Continue to monitor electrolytes and inflammatory markers as well as renal profile Continue COVID-19 cocktail including Decadron Adjust ventilator settings accordingly. Continue insulin drip Remains critically ill Prognosis is extremely poor. Critical care time is over 30 minutes. Time with Patient: Greater than 30
--- NOTE | 2021-11-22 12:35 | P.PN ---
Progress Note - Text Progress Note Date: 11/22/21 Chief Complaint: Decreased mentation History of presenting complaint: This is a 50-year-old patient, who follows with Dr. Saenz . Resident of [facility].. known history of bipolar disorder and schizophrenia. 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 Patient was here in May 2021. Severe hypernatremia, acute kidney injury metabolic encephalopathy. 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 Low-dose and high-dose dexamethasone test was put on telemetry specific. Does of Synthroid was increased. Patient now brought in from [facility]. Patient was diagnosed with COVID 19 a few days ago. Was on Paxil of it. Patient became increasingly lethargic. Patient is felt to secondary bacterial pneumonia. Given Levaquin and transferred here. Also noted. Significantly hypernatremic. Patient admitted to ICU. Consultation is made to director process engineering, nephrology, psychiatry, neurology. This morning patient int ICU. On a Precedex drip. BiPAP. Lethargic. Not able to give any history. Admitted with COVID 19 pneumonitis, hypoxia, possibly secondary bacterial pneumonia, severe hyponatremia, severe metabolic encephalopathy, acute kidney injury. On IV Precedex. IV fluids. Levaquin. EEG. November 08: ICU: On BiPAP 12/5. IV Precedex. Lethargic. IV Levaquin. Oral bicarbonate. Medications through NG tube. EEG pending. November 09: ICU: On BiPAP 12/5. Off Precedex. Remains lethargic a bit restless. November 10: ICU: On BiPAP 12/. Remains on Precedex. IV fluids. Sinus rhythm. Remains encephalopathic/delirious. 11/14/2021 Sonny Rubin feels better today, he does not feel dizziness while he is lying in bed all the time. He still have low appetite but no chest pain or dyspnea, no abdominal pain. He still complaining from pain in his legs and he has right leg DVT been on Lovenox with plan to switch him to heparin drip on today as he got midline Blood pressure is 87/56, heart rate 120, sodium is 121 On admission his sodium was still low and was started on D5 normal saline at 100 mL/h however after initial improvement sodium dropped to 121 yesterday so we held his IV fluid and the evening sodium improved 124 (no iv lasix given), however this morning is 121 again. We send urine studies and I'll consult ne phrologist. Also patient has negative CTPA for pulmonary embolism but CT of the abdomen and pelvis showing possible gallbladder fossa abscess or complex fluid collection although it is improved from previous 5 cm down to 2.7 centimeters. The recommended liver ultrasound versus MRI, ultrasound shows the same findings. Also surgery due on the case 11/15/2021 Last night his blood pressure dropped with systolic and 50s, there was a rapid response a team response and he was as stated with IV fluids aggressively, his blood pressure improved in 90s this morning and during the round he was awake an d alert looks tired but is appropriate. Sodium was 121 and then 119. He denied any chest pain or abdominal pain, no other complaints clinically. His losing from his puncture wound in the right lower abdomen was a stopped, he was started on heparin drip per recommendation of chemical operations specialist. After once by the evening time his blood pressure dropped again was 53/32 with altered mental status, there was another rapid response where patient was transferred to the ICU and levophed was started and his mentation started to improve again. Patient was started also on antibiotic empirically with Zosyn and IV vancomycin total infection ruled out completely as there is still high suspicion, with possible sources including the pressure wound sacral ulcer in the lower back, and less likely the gallbladder bed and fossa with 2.7 cm fluid collection (felt less likely because actually it decreased in size from 5.0 cm previously) After transfer patient and at bedside opted for the DO NOT RESUSCITATE order as per bedside nurse. 11/16/2021 Yesterday patient was still deteriorating, however today patient turned around and start improving patient remains in the ICU he needs to pressors we will fit and vasopressin, lactic acid trending up 6.4. Patient mentation is also deteriorated and become more confused and less responsive. His creatinine remains around 1 although he has low urine output. Patient is resuscitated with many fluids and also his broad-spectrum antibiotics with IV vancomycin and Zosyn, as septic shock is highly suspected is the cause of the patient profound hypotension and shock state. Although other factors might be contributing to it. Because of this we started the patient on hydrocortisone to increase the sensitivity of the adrenergic receptors to the catecholamine. Also replacing electrolytes including calcium and magnesium. Sodium slightly trending up. Patient remains in critical condition. Family at bedside 11/17/2021 Patient today workup and he was awake alert and oriented 3, he follows commands, he feels hungry and actually he started tolerating diet for the first time after several months. He denies any respiratory symptoms, his abdomen looks benign, no other new complaints. Blood pressure is improving and he required less pressors, currently blood pressure is 87/61, is less tachycardic around 110. He is currently on levophed 0.03 which is decreased from yesterday. Last night we added hydrocortisone 100 mg 3 times a day as a replacement therapy but to support blood pressure and increased sensitivity of levophed to its adrenergic receptors. Since blood pressure improvement with lower dose to 50 mg today, possibly we will discontinue it in one or 2 days once blood pressure keep improvement. Also patient receiving fluids. Labs looks stable, hemoglobin 9.8, sodium 126 he remains on Zosyn, vancomycin was discontinued. He remains on Zosyn. Anticoagulation is switched to Eliquis therapeutic dose at 10 mg which could be switched to 5 mg on 11/27. Prognosis remains guarded 11/18/2021 Patient is awake but drowsy, His blood pressure is improving but he still on pressors although is requiring less amount He has poor urine output but creatinine is around 1.1. His GFR is 66. He is going to receive 1 dose of Lasix 80 mg today. Also significant sodium bicarb and albumin infusion. He remains on Zosyn Anticoagulation with Eliquis Patient was seen and covered by [facility] from November 14 through November 18. 11/19/2021: I resumed care of patient today ICU: Ventilated intubated. FiO2 50 and a PEEP of 22. Telemetry sinus rhythm. Drips include norepinephrine, propofol, insulin, vasopressin. Nimbex was discontinued earlier today. Receiving a unit of blood. 2 feeding at 55 mL an hour. Bicarbonate infusion discontinued earlier. NG tube. 11/20/2021: ICU: On the ventilator. Intubated. FiO2 16 a PEEP of 22. Drips include vasopressin, levo fed, propofol, insulin. 2 feeding at 55 mL an hour. Telemetry shows sinus rhythm. His sed rate. Spoke to the sister at the bedside. Sedation holiday was tried. Patient became agitated. 11/21/2021: ICU: On the ventilator. Intubated. FiO2 55 and a PEEP of 22. This include vasopressin, norepinephrine, propofol. Telemetry shows sinus rhythm. NG tube in place. 2 feeding at 41 mL an hour. 11/22/2021: ICU: Ventilated a slight intubated. FiO2 16 a PEEP of 20. Patient is put on Nimbex drip yesterday. Other drips include vasopressin, levo fed, propofol. NG tube remains in place. Water was added. Sodium better. 2 feeding at 41 mL an hour. Active Medications Apixaban (Apixaban 5 Mg Tab) 5 mg PO BID [facility]; Protocol Last Admin: 11/22/21 08:09 Dose: 5 mg Artificial Tears (Artificial Tears-Hypromellose Drops 15 Ml Btl) 1 drops BOTH EYES Q4HR [facility] Last Admin: 11/22/21 11:58 Dose: 1 drops Aspirin (Aspirin 81 Mg) 81 mg PO DAILY@0900 [facility] Last Admin: 11/22/21 08:09 Dose: 81 mg Atorvastatin Calcium (Atorvastatin 40 Mg Tab) 40 mg PO HS@2100 [facility] Last Admin: 11/21/21 20:29 Dose: 40 mg Chlorhexidine Gluconate (Chlorhexidine Gluconate 15 Ml Cup) 15 ml MUCOUS MEM BID [facility] Last Admin: 11/22/21 08:09 Dose: 15 ml Clozapine (Clozapine 100 Mg Tab) 200 mg PO TID@0900,1300,2100 [facility] Stop: 11/29/21 10:21 Last Admin: 11/22/21 11:59 Dose: 200 mg Dexamethasone Sodium Phosphate (Dexamethasone Sod Phosphate 10 Mg/Ml 1 Ml Vial) 6 mg IVP DAILY [facility] Last Admin: 11/22/21 08:09 Dose: 6 mg Furosemide (Furosemide 10 Mg/Ml 4 Ml Vial) 40 mg IV DAILY [facility] Last Admin: 11/22/21 08:09 Dose: 40 mg Cisatracurium Besylate 200 mg/ (Sodium Chloride) 200 mls @ 5.184 mls/hr IV .Q24H [facility]; Protocol Last Titration: 11/22/21 12:25 Dose: 2 mcg/kg/min, 10.368 mls/hr Propofol 1,000 mg/ IV Solution 100 mls @ 2.592 mls/hr IV .Q24H [facility]; Protocol Last Admin: 11/22/21 09:55 Dose: 55 mcg/kg/min, 28.512 mls/hr Vasopressin 20 unit/ Sodium (Chloride) 51 mls @ 4.59 mls/hr IVPB .Q11H7M [facility] Last Admin: 11/22/21 07:56 Dose: 4.59 mls/hr Norepinephrine Bitartrate 32 (mg/ Sodium Chloride) 250 mls @ 34.02 mls/hr IV .Q7H21M [facility]; Protocol Last Titration: 11/22/21 12:21 Dose: 0.4 mcg/kg/min, 16.2 mls/hr Sodium Chloride (Saline 0.9%) 500 mls @ 20 mls/hr IV .Q24H [facility] Last Admin: 11/22/21 08:11 Dose: 20 mls/hr Cefepime HCl 2 gm/ Sodium (Chloride) 100 mls @ 25 mls/hr IVPB Q8H [facility]; Protocol Last Admin: 11/22/21 11:59 Dose: 25 mls/hr Insulin Aspart (Insulin Aspart (Novolog) 100 Unit/Ml Vial) 0 unit SQ Q4HR [facility]; Protocol Last Admin: 11/22/21 11:58 Dose: 8 unit Insulin Detemir (Insulin Detemir (Levemir) 100 Unit/Ml Syr) 10 unit SQ DAILY@0700 [facility] Last Admin: 11/22/21 09:51 Dose: 10 unit Lamotrigine (Lamotrigine 25 Mg Tab) 25 mg PO BID@0900,2100 [facility] Last Admin: 11/22/21 08:10 Dose: 25 mg Levothyroxine Sodium (Levothyroxine 100 Mcg Tab) 100 mcg PO DAILY@0600 [facility] Last Admin: 11/22/21 06:36 Dose: 100 mcg Miscellaneous Information (Pneumonia Protocol Utilized 1 Each Misc) 1 each PO ONCE PRN PRN Reason: Per Protocol Miscellaneous Information (Potassium Replacement Protocol 1 Each Misc) 1 each MISCELLANE DAILY PRN; Protocol PRN Reason: Per Protocol Naloxone HCl (Naloxone 0.4 Mg/Ml 1 Ml Vial) 0.2 mg IV Q2M PRN PRN Reason: Opioid Reversal Pantoprazole Sodium (Pantoprazole 40 Mg/10 Ml Vial) 40 mg IV DAILY [facility] Last Admin: 11/22/21 08:11 Dose: 40 mg Thiamine HCl (Thiamine 100 Mg Tab) 100 mg PO DAILY [facility] Last Admin: 11/22/21 08:11 Dose: 100 mg Past medical history to include: Hypertension, hypothyroid, bipolar disorder, schizophrenia. excessive alcohol use in the past. No smoking. Psychosis, catatonic-like syndrome Social history: Heavy alcohol use in the past. . No smoking. Currently at [facility] Family history: Patient cannot tell Physical examination: VITAL SIGNS: 98.8, 75, 32, 10 3 x 56, 92% on the ventilator GENERAL: Intubated on the ventilator. Sedated EYES: Pupils equal. Conjunctiva normal. HEENT: External appearance of nose and ears normal, oral cavity dry. NG tube NECK: JVD unable to assess; masses not palpable. HEART: First and second heart sounds are normal; some edema. LUNGS: Respiratory rate increased; decreased breath sounds ABDOMEN: Soft, nontender, liver spleen not palpable, no masses palpable. PSYCH: Patient sedated, unable to assess MUSCULOSKELETAL:No Clubbing/cyanosis;muscles-grossly intact. NEUROLOGICAL: sedated INVESTIGATIONS, reviewed in the clinical context: November 22: WBC 14.8 hemoglobin 7.4 potassium 3.9 creatinine 0.74 sodium 141. ABG: PH 7.31 pCO2 71 pO2 57 November 21: WBC 14.1 hemoglobin 7.3 platelets 187 sodium 146 bicarbonate 35 creatinine 0.94. ABG: PH 7.29 pCO2 70 pO2 88 November 20: WBC 14 hemoglobin 8.1 sodium 150 potassium 3.4 BUN 61 creatinine 1.09 bicarbonate 33. ABG: PO2 of 56 November 19: WBC is 16.3 hemoglobin 6.7 platelets 206 November 10: WBC 15.2 hemoglobin 11.2 sodium 150 progression 4. 36 creatinine 1.13 November 09: WBC 14.6 hemoglobin 11.4 2149 potassium 4.2 BUN 44 creatinine 1.27 November 08: WBC 12.7 hemoglobin 11.4 sodium 153 potassium 4.5 BUN 60 creatinine 1.55 cortisol 18 November 07: White count 20.7 hemoglobin 12 platelets 345 sodium 162 potassium 4.2. 58 creatinine 2.13 ammonia less than 9 COVID 19: Detected November 06: White count 9.5 hemoglobin 12.6 platelets 321 sodium 157 potassium 4.3 chloride 124 BUN 50 creatinine 2.04 UA positive for leukoesterase, WBC Pro-calcitonin 1.11 Chest x-ray film personally reviewed by me-scattered infiltrate EKG tracing personally reviewed by me-sinus rhythm Previous labs: BUN 9 creatinine 0.95 on June 2021 Assessment and plan: -Severe hypernatremia, from free water deficit from decreased oral intake: Better Free fluid -ARDS, multifactorial: Not improving Requiring high PEEP. -COVID 19 with pneumonitis/hypoxia: Slow to respond Intubated Dexamethasone 6 mg -Possible secondary bacterial pneumonia : Slow to respond IV cefepime -Acute hypoxic respiratory failure from respiratory suppression multifactorial: Not improving Initially BiPAP 12/5. Currently intubated -Acute severe metabolic encephalopathy from renal failure and delirium: Slow to respond Treat underlying conditions. -Schizoaffective disorder, bipolar type. Psychosis: Clozaril 200 mg by mouth daily 3 times a day Lamictal 25 mg twice a day Ativan 1 mg IV every 4 when necessary -Bipolar disorder See above medications -Acute kidney injury, possibly prerenal/ ATN : Corrected Admission creatinine 2.04. Received fluids -Diabetes mellitus type 2, on oral hypoglycemic Follow Accu-Cheks -Hypothyroid, Synthroid 100g a day -Hyperlipidemia Lipitor 40 mg daily at bedtime TriCor 134 mg before supper -Chronic DVT both lower extremity diagnosed on October 19 2020 [place]. -Hypernatremia, from free water deficit: Corrected Free water through NG tube -Full code IV norepinephrine, propofol, insulin, vasopressin. Tube feeding at 41 mL an hour. Intubated . has been started back on Nimbex yesterday. Dietitian to adjust 2 feeding as patient off D5W.
[2021-11-22 15:50] LABS: Glucose,Whole Blood 245 mg/dL (70-110)
[2021-11-22 20:31] LABS: Glucose,Whole Blood 199 mg/dL (70-110)
[2021-11-22] MEDS: ATORVASTATIN 40 MG TAB PO SCH (20:38)
[2021-11-22 23:50] LABS: Glucose,Whole Blood 154 mg/dL (70-110)
[2021-11-23 04:17] LABS: Glucose,Whole Blood 140 mg/dL (70-110)
[2021-11-23] MEDS: INSULIN ASPART (NovoLOG) 100 UNIT/ML VIAL SQ SCH ×5 (04:45→20:30)
[2021-11-23 05:51] LABS: ABG Base Excess 9.3 mmol/L; ABG HCO3 36 mmol/L (21-25); ABG Oxygen Saturation 92.6 % (94-97); ABG PO2 63 mmHg (83-108); ABG TCO2 38 mmol/L (19-24); Allen Test Performed? Yes
[2021-11-23 05:56] LABS: ABG PCO2 73 mmHg (35-45)
[2021-11-23 06:03] LABS: Anisocytosis Slight; HCT 22.4 % (34.0-46.0); Hypochromasia Marked; MCH 27.3 pg (25.0-35.0); MCHC 31.3 g/dL (31.0-37.0); MCV 87.1 fL (80.0-100.0); Mean Platelet Volume 9.5; Platelet Count 208 k/uL (150-450); Poikilocytosis Slight; RBC 2.58 m/uL (3.80-5.40); RDW 17.9 % (11.5-15.5)
[2021-11-23] MEDS: LEVOTHYROXINE 100 MCG TAB PO SCH (06:05)
[2021-11-23] MEDS: INSULIN DETEMIR (LEVEMIR) 100 UNIT/ML SYR SQ SCH (06:06)
[2021-11-23 06:16] LABS: ALT 15 U/L (4-34); AST 22 U/L (14-36); African American GFR (CKD) >90 (>60 ml/min/1.73 sqM); Albumin 2.3 g/dL (3.5-5.0); Alkaline Phosphatase 56 U/L (38-126); Anion Gap 0 mmol/L; Blood Urea Nitrogen 63 mg/dL (7-17); Calcium 8.1 mg/dL (8.4-10.2); Carbon Dioxide 37 mmol/L (22-30); Chloride 102 mmol/L (98-107); Glucose 127 mg/dL (74-99); Non-African American GFR(CKD) >90 (>60 ml/min/1.73 sqM); Potassium 3.4 mmol/L (3.5-5.1); Sodium 139 mmol/L (137-145); Total Bilirubin 0.3 mg/dL (0.2-1.3); Total Protein 4.3 g/dL (6.3-8.2)
[2021-11-23 06:40] LABS: Band Neutrophils % 19 %; Metamyelocytes % 2 %; Myelocytes % 2 %; Neutrophils % (M) 63 %; Nucleated Red Blood Cells 2 /100 WBC (0-0); Total Cells Counted 200
[2021-11-23 06:41] LABS: Anisocytosis (M) Present; Lymphocytes # (M) 2.05 k/uL (1.0-4.8); Metamyelocytes # (M) 0.37 k/uL (0); Monocytes # (M) 0.56 k/uL (0-1.0); Myelocytes # (M) 0.37 k/uL (0); WBC 18.6 k/uL (3.8-10.6)
[2021-11-23 06:42] LABS: Basophilic Stippling Present; Poikilocytosis (M) Present; Polychromasia Present
[2021-11-23] MEDS: NOREPINEPHRINE 32 MG in SODIUM CHLORIDE 0.9% 218 ML IV SCH ×4 (07:07→22:52)
[2021-11-23] MEDS: ARTIFICIAL TEARS-HYPROMELLOSE DROPS 15 ML BTL BOTH EYES SCH ×6 (07:08→23:59)
[2021-11-23] MEDS: SODIUM CHLORIDE 0.9% 50 ML with VASOPRESSIN 20 UNIT IVPB SCH ×4 (07:08→22:53)
[2021-11-23] MEDS: CEFEPIME 2 GM in SODIUM CHLORIDE 0.9% 100 ML IVPB SCH ×3 (07:11→20:31)
--- NOTE | 2021-11-23 08:03 | XR ---
EXAMINATION TYPE: XR chest 1V portable DATE OF EXAM: 11/23/2021 COMPARISON: Chest x-ray 11/22/2021 HISTORY: Covid pneumonia, ARDS TECHNIQUE: Single frontal view of the chest is obtained. FINDINGS: Patient is rotated, right costophrenic angle not entirely included on the exam. Endotrache al tube, NG tube, left subclavian central venous catheter are stable and are overlying appropriate po sitions. No evident pneumothorax or pleural effusion. Cardiac mediastinal sweat is stable. Bilateral airspace disease, extensive subcutaneous emphysema again noted. Pneumomediastinum appears less conspi cuous. IMPRESSION: Findings consistent with pneumonia, ARDS, edema, correlate
[2021-11-23] MEDS: CHLORHEXIDINE GLUCONATE 15 ML CUP MUCOUS MEM SCH ×2 (08:43→20:32)
[2021-11-23] MEDS: THIAMINE 100 MG TAB PO SCH (08:43)
[2021-11-23] MEDS: APIXABAN 5 MG TAB PO SCH ×2 (08:44→20:31)
[2021-11-23] MEDS: ASPIRIN 81 MG PO SCH (08:44)
[2021-11-23] MEDS: FUROSEMIDE 10 MG/ML 4 ML VIAL IV SCH (08:44)
[2021-11-23] MEDS: PANTOPRAZOLE 40 MG/10 ML VIAL IV SCH (08:45)
[2021-11-23] MEDS: DEXAMETHASONE SOD PHOSPHATE 10 MG/ML 1 ML VIAL IVP SCH (08:45)
[2021-11-23] MEDS: lamoTRIgine 25 MG TAB PO SCH ×2 (08:48→20:32)
[2021-11-23] MEDS: cloZAPine 100 MG TAB PO SCH ×3 (08:48→20:32)
--- NOTE | 2021-11-23 08:57 | P.PN ---
Subjective Patient is seen in follow-up for acute kidney injury. Patient had a cardiac arrest this admission. She is currently intubated. She remains on Levophed and vasopressin. Renal function back to baseline. Receiving tube feeds. Sodium level 139. On 70% FiO2 and high PEEP. Vital signs are stable. General: Resting in bed. On vasopressor support. HEENT: Intubated. LUNGS: Breath sounds decreased. HEART: Regular rate and rhythm. ABDOMEN: Soft, no distention. EXTREMITITES: 1+ edema. Objective - Vital Signs Vital signs: Vital Signs Temp 97.5 F L 11/23/21 04:00 Pulse 71 11/23/21 07:00 Resp 32 H 11/23/21 07:00 BP 99/50 11/23/21 07:00 Pulse Ox 93 L 11/23/21 07:00 FiO2 70 11/23/21 07:07 Intake & Output 11/22/21 11/23/21 11/23/21 18:59 06:59 18:59 Intake Total 2434.310 2604.440 173.89 Output Total 2740 1320 75 Balance -144.304 0203.440 98.89 Weight 111.5 kg 109.8 kg Intake: IV 220 200 20 Sodium Chloride 0.9 220 200 20 Intake, IV Titration 543.310 652.440 107.89 Amount Cefepime 2 gm In Sodium 125 25 Chloride 0.9% 100 ml @ 25 mls/hr IVPB Q8H [facility] Rx#: [id number] Cisatracurium 200 mg In 90.201 Sodium Chloride 0.9% 180 ml @ 1 MCG/KG/MIN 5.184 mls/hr IV .Q24H [facility] Rx#: [id number] Insulin Regular 100 unit 4.444 In Sodium Chloride 0.9% 100 ml @ Per Protocol IV .Q0M [facility] Rx#:[id number] Norepinephrine 32 mg In 156.209 142.587 82.89 Sodium Chloride 0.9% 218 ml @ 0.84 MCG/KG/MIN 34. 02 mls/hr IV .Q7H21M [facility] Rx#:[id number] propofoL 1,000 mg In 292.456 384.853 Empty Bag 1 bag @ 5 MCG/ KG/MIN 2.592 mls/hr IV . Q24H [facility] Rx#:[id number] Tube Feeding 471 552 46 Other 1200 1200 Output: Urine 2740 1320 75 Other: Voiding Method Indwelling Catheter Indwelling Catheter ABP, PAP, CO, CI - Last Documented Arterial Blood Pressure 108/44 - Labs CBC & Chem 7: 11/23/21 04:10 11/23/21 04:10 Labs: Abnormal Lab Results - Last 24 Hours (Table) 11/22/21 11/22/21 11/22/21 Range/Units 11:48 15:50 20:30 WBC (3.8-10.6) k/uL RBC (3.80-5.40) m/uL Hgb (11.4-16.0) gm/dL Hct (34.0-46.0) % RDW (11.5-15.5) % Neutrophils # (Manual) (1.3-7.7) k/uL Metamyelocytes # (Man) (0) k/uL Myelocytes # (Manual) (0) k/uL Nucleated RBCs (0-0) /100 WBC ABG pH (7.35-7.45) ABG pCO2 (35-45) mmHg ABG pO2 (83-108) mmHg ABG HCO3 (21-25) mmol/L ABG Total CO2 (19-24) mmol/L ABG O2 Saturation (94-97) % Potassium (3.5-5.1) mmol/L Carbon Dioxide (22-30) mmol/L BUN (7-17) mg/dL Glucose (74-99) mg/dL POC Glucose (mg/dL) 258 H 245 H 199 H (70-110) mg/dL Calcium (8.4-10.2) mg/dL Total Protein (6.3-8.2) g/dL Albumin (3.5-5.0) g/dL 11/22/21 11/23/21 11/23/21 Range/Units 23:48 04:10 04:10 WBC 18.6 H (3.8-10.6) k/uL RBC 2.58 L (3.80-5.40) m/uL Hgb 7.0 L (11.4-16.0) gm/dL Hct 22.4 L (34.0-46.0) % RDW 17.9 H (11.5-15.5) % Neutrophils # (Manual) 15.20 H (1.3-7.7) k/uL Metamyelocytes # (Man) 0.37 H (0) k/uL Myelocytes # (Manual) 0.37 H (0) k/uL Nucleated RBCs 2 H (0-0) /100 WBC ABG pH (7.35-7.45) ABG pCO2 (35-45) mmHg ABG pO2 (83-108) mmHg ABG HCO3 (21-25) mmol/L ABG Total CO2 (19-24) mmol/L ABG O2 Saturation (94-97) % Potassium 3.4 L (3.5-5.1) mmol/L Carbon Dioxide 37 H (22-30) mmol/L BUN 63 H (7-17) mg/dL Glucose 127 H (74-99) mg/dL POC Glucose (mg/dL) 154 H (70-110) mg/dL Calcium 8.1 L (8.4-10.2) mg/dL Total Protein 4.3 L (6.3-8.2) g/dL Albumin 2.3 L (3.5-5.0) g/dL 11/23/21/12/08 Range/Units 04:15 05:47 WBC (3.8-10.6) k/uL RBC (3.80-5.40) m/uL Hgb (11.4-16.0) gm/dL Hct (34.0-46.0) % RDW (11.5-15.5) % Neutrophils # (Manual) (1.3-7.7) k/uL Metamyelocytes # (Man) (0) k/uL Myelocytes # (Manual) (0) k/uL Nucleated RBCs (0-0) /100 WBC ABG pH 7.30 L (7.35-7.45) ABG pCO2 73 H* (35-45) mmHg ABG pO2 63 L (83-108) mmHg ABG HCO3 36 H (21-25) mmol/L ABG Total CO2 38 H (19-24) mmol/L ABG O2 Saturation 92.6 L (94-97) % Potassium (3.5-5.1) mmol/L Carbon Dioxide (22-30) mmol/L BUN (7-17) mg/dL Glucose (74-99) mg/dL POC Glucose (mg/dL) 140 H (70-110) mg/dL Calcium (8.4-10.2) mg/dL Total Protein (6.3-8.2) g/dL Albumin (3.5-5.0) g/dL Microbiology - Last 24 Hours (Table) 11/16/21 12:02 Blood Culture - Final Blood No Growth after 144 hours 11/16/21 12:02 Blood Culture - Final Blood No Growth after 144 hours Assessment and Plan Plan: Assessment: 1. Acute kidney injury secondary to ATN secondary to cardiac arrest/shock. Resolved. Renal function resolved. Nonoliguric. No hydronephrosis noted on kidney ultrasound. 2. Hypernatremia from lack of oral water intake. Improved. 3. Acute hypercapnic respiratory failure. Improved. 4. Status post cardiac arrest this admission. 5. Recent coronavirus infection. 6. Acute blood loss anemia. No active bleeding. Status post blood transfusion this admission. Iron replete. 7. Hypokalemia from poor intake. Magnesium normal. 8. Volume overload. Receiving IV Lasix. Plan: Maintain tube feeds. Decrease free water flushes to 300 mL every 4 hours. Wean FiO2 and vasopressors. Avoid nephrotoxins. Continue to monitor renal function and urine output. Cortisol level not low data 11/08/2021. Currently on dexamethasone. Potassium replaced. Maintain IV Lasix. Additional dose of 40 mg IV this afternoon.
[2021-11-23] MEDS: POTASSIUM BICARBONATE/CIT AC 20 MEQ TABLET.EFF NG-TUBE SCH ×2 (09:06→10:40)
[2021-11-23 09:12] LABS: Glucose,Whole Blood 195 mg/dL (70-110)
[2021-11-23] MEDS: CISATRACURIUM 200 MG in SODIUM CHLORIDE 0.9% 180 ML IV SCH (10:49)
--- NOTE | 2021-11-23 10:58 | P.PN ---
Subjective Progress Note Date: 11/23/21 The patient is seen at bedside and is about the same. She is currently on IV Nimbex 2mcg/kg/min and IV Propofol 55mcg/kg/min. Objective - Vital Signs Vital signs: Vital Signs Temp 97.5 F L 11/23/21 04:00 Pulse 71 11/23/21 07:00 Resp 32 H 11/23/21 07:00 BP 99/50 11/23/21 07:00 Pulse Ox 93 L 11/23/21 07:00 FiO2 60 11/23/21 10:47 Intake & Output 11/22/21 11/23/21 11/23/21 18:59 06:59 18:59 Intake Total 2434.310 2604.440 865.890 Output Total 2740 1320 300 Balance -832.564 4060.440 565.890 Weight 111.5 kg 109.8 kg Intake: IV 220 200 20 Sodium Chloride 0.9 220 200 20 Intake, IV Titration 543.310 652.440 407.890 Amount Cefepime 2 gm In Sodium 125 25 Chloride 0.9% 100 ml @ 25 mls/hr IVPB Q8H DENISSE Rx#: [id number] Cisatracurium 200 mg In 90.201 200.000 Sodium Chloride 0.9% 180 ml @ 1 MCG/KG/MIN 5.184 mls/hr IV .Q24H DENISSE Rx#: [id number] Insulin Regular 100 unit 4.444 In Sodium Chloride 0.9% 100 ml @ Per Protocol IV .Q0M DENISSE Rx#:[id number] Norepinephrine 32 mg In 156.209 142.587 82.89 Sodium Chloride 0.9% 218 ml @ 0.84 MCG/KG/MIN 34. 02 mls/hr IV .Q7H21M DENISSE Rx#:[id number] propofoL 1,000 mg In 292.456 384.853 100 Empty Bag 1 bag @ 5 MCG/ KG/MIN 2.592 mls/hr IV . Q24H DENISSE Rx#:[id number] Tube Feeding 471 552 138 Other 1200 1200 300 Output: Urine 2740 1320 300 Other: Voiding Method Indwelling Catheter Indwelling Catheter ABP, PAP, CO, CI - Last Documented Arterial Blood Pressure 108/44 - Exam GENERAL: The patient is lying in bed and does not seem in acute distress.. LUNG: Intubated on vent and requiring high PEEP EXTREMITIES: Has crackling sensation on palpation of bilateral uppers proximal (left > right). NEUROLOGICAL: Limited. IV Nimbex 2mcg/kg/min and IV Propofol 55mcg/kg/min. Higher mental function: Is comatose. Cranial nerves:Pupils are pinpoint and no reactive to light. Is breathing at vent. Motor: Unable to asssess. Cerebellum: Unable to assess. Sensation: Unable to assess. - Labs CBC & Chem 7: 11/23/21 04:10 11/23/21 04:10 Labs: Abnormal Lab Results - Last 24 Hours (Table) 11/22/21 11/22/21 11/22/21 Range/Units 11:48 15:50 20:30 WBC (3.8-10.6) k/uL RBC (3.80-5.40) m/uL Hgb (11.4-16.0) gm/dL Hct (34.0-46.0) % RDW (11.5-15.5) % Neutrophils # (Manual) (1.3-7.7) k/uL Metamyelocytes # (Man) (0) k/uL Myelocytes # (Manual) (0) k/uL Nucleated RBCs (0-0) /100 WBC ABG pH (7.35-7.45) ABG pCO2 (35-45) mmHg ABG pO2 (83-108) mmHg ABG HCO3 (21-25) mmol/L ABG Total CO2 (19-24) mmol/L ABG O2 Saturation (94-97) % Potassium (3.5-5.1) mmol/L Carbon Dioxide (22-30) mmol/L BUN (7-17) mg/dL Glucose (74-99) mg/dL POC Glucose (mg/dL) 258 H 245 H 199 H (70-110) mg/dL Calcium (8.4-10.2) mg/dL Total Protein (6.3-8.2) g/dL Albumin (3.5-5.0) g/dL 11/22/21 11/23/21 11/23/21 Range/Units 23:48 04:10 04:10 WBC 18.6 H (3.8-10.6) k/uL RBC 2.58 L (3.80-5.40) m/uL Hgb 7.0 L (11.4-16.0) gm/dL Hct 22.4 L (34.0-46.0) % RDW 17.9 H (11.5-15.5) % Neutrophils # (Manual) 15.20 H (1.3-7.7) k/uL Metamyelocytes # (Man) 0.37 H (0) k/uL Myelocytes # (Manual) 0.37 H (0) k/uL Nucleated RBCs 2 H (0-0) /100 WBC ABG pH (7.35-7.45) ABG pCO2 (35-45) mmHg ABG pO2 (83-108) mmHg ABG HCO3 (21-25) mmol/L ABG Total CO2 (19-24) mmol/L ABG O2 Saturation (94-97) % Potassium 3.4 L (3.5-5.1) mmol/L Carbon Dioxide 37 H (22-30) mmol/L BUN 63 H (7-17) mg/dL Glucose 127 H (74-99) mg/dL POC Glucose (mg/dL) 154 H (70-110) mg/dL Calcium 8.1 L (8.4-10.2) mg/dL Total Protein 4.3 L (6.3-8.2) g/dL Albumin 2.3 L (3.5-5.0) g/dL 11/23/21 11/23/21 11/23/21 Range/Units 04:15 05:47 09:10 WBC (3.8-10.6) k/uL RBC (3.80-5.40) m/uL Hgb (11.4-16.0) gm/dL Hct (34.0-46.0) % RDW (11.5-15.5) % Neutrophils # (Manual) (1.3-7.7) k/uL Metamyelocytes # (Man) (0) k/uL Myelocytes # (Manual) (0) k/uL Nucleated RBCs (0-0) /100 WBC ABG pH 7.30 L (7.35-7.45) ABG pCO2 73 H* (35-45) mmHg ABG pO2 63 L (83-108) mmHg ABG HCO3 36 H (21-25) mmol/L ABG Total CO2 38 H (19-24) mmol/L ABG O2 Saturation 92.6 L (94-97) % Potassium (3.5-5.1) mmol/L Carbon Dioxide (22-30) mmol/L BUN (7-17) mg/dL Glucose (74-99) mg/dL POC Glucose (mg/dL) 140 H 195 H (70-110) mg/dL Calcium (8.4-10.2) mg/dL Total Protein (6.3-8.2) g/dL Albumin (3.5-5.0) g/dL Microbiology - Last 24 Hours (Table) 11/16/21 12:02 Blood Culture - Final Blood No Growth after 144 hours 11/16/21 12:02 Blood Culture - Final Blood No Growth after 144 hours Assessment and Plan Assessment: Encephalopathy seems due to multifactorial: Predominately hypoxic encephalopathy due to COVID-19 pneumonia. Also component of metabolic encephalopathy (hypernatremia, JAYLA). Encephalopathy also due to medication effect (IV Propofol and Nimbex). Status post cardiac arrest with downtime of 10 minutes. Probable anoxic encep halopathy superimposed on pre-existing metabolic encephalopathy Significant Emphysema History of seizure and she had a seizure about 6-8 years ago (blank starkarla) while ?reported GTC on 03/15/2021 (but her 2.5 hour EEG and routine EEG was negative for seizure or epileptiform discharges) Acute hypoxemic respiratory failure secondary due to pneumonia Acute hypernatremia--resolved JAYLA--resolved Recent [place] virus infection History of diabetes History of hyperthyroid Schizoaffective disorder Primary history of tobacco use History of heavy alcohol use History of marijuana use Plan: * EEG was performed, which was abnormal due to background slowing of moderate to severe degree. This is suggestive of generalized cerebral dysfunction, as can be seen with toxic metabolic encephalopathy or due to diffuse structural brain abnormality. Clinical correlation recommended. No epileptiform activity was seen. * CT head repeat on 11/19/2021: It is reported as no acute intracranial process. Subcutaneous emphysema tracking into the skull base myofascial planes. Of note during this hospital stay patient has significant respiratory issues and has emphysema. * Repeat CT head: It is reported as age-related atrophic and chronic small vessel ischemic change without acute intracranial process seen at this time. I personally reviewed the CT of the head and I don't feel there is any change compared to prior. * Patient is on Eliquis, also on aspirin 81 mg and Lipitor 40 mg daily. * Nephrology team is on board * We'll defer the rest of the medical management to the primary and ICU team * Prognosis is poor. * Patient is NO CODE. * Patient wants to continue medical management. The plan is discussed with her nurse. Will follow-up with patient sporadically. Breezy Orozco M.D. Neuro-Hospitalist Time with Patient: Less than 30
[2021-11-23 11:36] LABS: Glucose,Whole Blood 236 mg/dL (70-110)
--- NOTE | 2021-11-23 11:37 | P.PN ---
Subjective Progress Note Date: 11/23/21 Principal diagnosis: Acute hypoxic respiratory failure, COVID-19 pneumonia, ARDS 50-year-old female, who is brought in by the [place] emergency services. She apparently resides at [facility] in that area. She apparently has a history of schizophrenia, as well as a history of recent infection with coronavirus. The patient was brought in because of mental status changes, and also low saturations. Apparently the patient was evaluated there and thought to have pneumonia. The patient was treated with Levaquin here. Currently, she seen in the emergency room, room 11. She is on 15 L high flow oxygen. She's getting saline at 75 mL an hour. I did have the opportunity to speak to the patient's , name Art. He was able to provide some history . The patient is at the halfway as mentioned above, but is unable to prepare food for herself. Her mental status varies hour to hour and day today according to him. The patient herself can give me no history. She sees been here in the emergency department, she's been moaning and groaning. Her chest x- ray shows bilateral patchy infiltrates. A blood gas was done and showed a pO2 of 89, pCO2 35, and pH is 7.332. She apparently has a history of diabetes, hypertension, hyperlipidemia, and hypothyroidism. White count 11.5, hemoglobin 12.6, hematocrit 41.3, with a normal platelet count. Sodium 157, potassium 4.3, chlorides 124, CO2 19, anion gap 14, BUN 50, creatinine 2.04. Her lactic acid was 1.2. Pro-calcitonin level is pending. Urine is yellow and cloudy. There is 1+ protein. Trace blood. Small positive leukocyte esterase, 7 RBCs, 9 WBCs, and many bacteria. Chest x-ray shows patchy bilateral infiltrates. 11/20/2021, the patient is being seen for a follow-up in the intensive care unit for COVID 19 related pneumonia/ARDS and respiratory complications related to COVID 19 infection.. The patient is on propofol which is running at 55 mcg/kg per minute. The patient is currently off Nimbex. The patient was taken off Nimbex yesterday and the patient remains quite synchronous and still on a mechanical ventilator. There has been no signs of any neurologic recovery at this point in time. The patient remains completely unresponsive. The patient underwent a CAT scan of the brain yesterday that showed no acute abnormalities. The patient remains on assist-control mode of mechanical ventilation and the patient is currently on assist-control at the rate of 32, tidal volume of 375, FiO2 is at 60% with a PEEP of 22. Peak airway pressure is 38. Chest x-ray showed diffuse bilateral pulmonary infiltrates along with that there is subcutaneous emphysema extensively in the anterior chest on the neck area. No major change in the x-ray findings. Blood gases from today shows a pH of 7.29 with a pCO2 of 69 and pO2 of 56. The patient's acidosis is improved as the patient was given bicarb infusion. The pH is improved. Pressor requirements have also improved and the patient is on levo fed 0.2 mics respiratory per minute and the patient is on a physiologic dose of vasopressin at 0.03 units an hour. The patient is developing significant amount of third spacing and on today's labs the patient is a component of hypo-or uremic hypernatremia. The patient was started on D5 water at the rate of 60 mL an hour and the patient is also receiving free water through the NG replaced the free water deficit. Input output balance over the past 24 hours is positive for 0.6 L. The patient's sodium is at 150 with a potassium level of 3.4 and a BUN of 61 and a creatinine of 1.08. The white cell count is at 40 with a hemoglobin of 8.1. The patient remains on vital high protein at the rate of 55 mL an hour. She is afebrile. Pressor requirements are less. DNR/DNI CODE STATUS. Remains on Decadron. Today on 11/21/2021, patient remains in the ICU, intubated and mechanically ventilated. She is sedated, on propofol, off Nimbex, however patient needs to go back on Nimbex. Patient is on assist control rate of 3 to tidal volume 375 FiO2 60% and PEEP of 22. And after reviewing her ABG which showed a pO2 of 88 pCO2 70 pH of 7.29, I decreased her FiO2 to 55%. I have also increased her propofol to 75 mcg/kg/m, and I restarted the patient on Nimbex. CODE STATUS was changed to DO NOT RESUSCITATE CODE STATUS, and today I had a long discussion with family members and they seem to be inclined to consider possibly comfort care measures. Patient remains on norepinephrine at 0.25 mcg/kg/m vasopressin at 0.03 units per minute propofol presently at 55 mcg/kg/m insulin at 3 units per hour patient is on enteral feeding. She is on cefepime, eliquis, Lasix 40 mg IV push daily, and Decadron 6 mg IV push daily. Patient was intubated on 11/15, and since then she had cardiac arrest 2. Patient obviously sustained some severe metabolic encephalopathy and CT of the brain is basically nondiagnostic. Being followed by neurology on consultation. Chest x-ray today continues to show ARDS, and subcutaneous emphysema. WBC count is 14.1 hemoglobin 7.3 basic metabolic profile is normal BUN is 61 creatinine 0.94, last pro-calcitonin was 0.10. MedicationsShe is on eliquis, atorvastatin, cefepime, Peridex, Nimbex was restarted, she is also on clozapine, Decadron 6 mg IV push daily, Lasix 40 mg IV push daily Lamictal 25 mg twice a day Protonix 40 mg IV push daily, she is also on propofol, thiamine, norepinephrine and vasopressin Patient was reevaluated today on 11/22/2021, patient remains in the ICU, intubated and mechanically ventilated. She is on assist control rate of 3 to tidal volume 375 FiO2 55% and PEEP of 22. ABG showed a pO2 of 67 pCO2 71 pH of 7.31 hence I increased the FiO2 up to 60% and the PEEP went down to 20. Patient remains on multiple drips including Nimbex at 20 mcg/kg/min, propofol at 55 mcg/kg/m norepinephrine at 0.4 mcg/kg/m vasopressin at 0.03 units per minute and she is on IV fluid 0.9 normal saline at KVO. Patient is also on enteral feeding receiving vital AF at 41 mL per hour. She is also getting free water 400 mL every 4 hours. Her peak airway pressure today is 42+ to pressure is 40 consistent with severe ARDS. Chest x-ray continues to show bilateral interstitial infiltrates and significant subcutaneous emphysema. Overall not much of a change noted over the last 24 hours. Patient is practically above the same. She remains critically ill and she has severe poor prognosis. Patient was made DO NOT RESUSCITATE per family and based on my discussion with the family yesterday, apparently the is not yet ready to consider comfort care measures. He is very well aware of the poor prognosis. Labs today showed WBC count of 14.8 hemoglobin 7.4. Basic metabolic profile is normal BUN is 64 creatinine 0.74. ABG as noted above Patient was reevaluated today on 11/23/2021, patient remains in the ICU, intubated and mechanically ventilated. Not much of a change has been noted over the last few days. Remains critically ill, remains on assist control rate of 32 tidal volume of 375 FiO2 was increased last night to 70% and the PEEP is 20. Today I went ahead and increased the PEEP up to 22 and cut down the FiO2 to 65%. Patient remains on norepinephrine at 0.41 mcg/kg/m, vasopressin at 0.03 units per minutes. Propofol at 55 Nimbex at 2 mcg/kg/m. ABG on 60% showed a pO2 of 63 pCO2 of 73 pH of 7.30. CODE STATUS remains DO NOT RESUSCITATE, family is still undecided about comfort care measures although the prognosis seems to be extremely poor on this patient. Patient remains on vital AF for nutritional support at 46 mL per hour. She is also receiving free water 300 mL every 6 hours. Chest x-ray is basically about the same continues to show bilateral infiltrates, consistent with ARDS, and subcutaneous emphysema. No evidence of pneumothorax. WBC count is 18.6 hemoglobin is 7 hematocrit is 22.4. Patient has leukocytosis with bandemia and her PMNs of 19%. Urine cultures and blood cultures and sputum cultures have been negative. Basic metabolic profile is basically normal and unchanged BUN remains elevated at 63 creatinine is normal at 0.68. Antibiotics wilson, the patient remains on cefepime, she is also on insulin subcu. Remains on Decadron 6 mg IV push daily. Objective - Vital Signs Vital signs: Vital Signs Temp 97.3 F L 11/23/21 08:00 Pulse 79 11/23/21 11:00 Resp 32 H 11/23/21 11:00 BP 106/53 11/23/21 11:00 Pulse Ox 89 L 11/23/21 11:00 FiO2 60 11/23/21 11:00 Intake & Output 11/22/21 11/23/21 11/23/21 18:59 06:59 18:59 Intake Total 2434.310 2604.440 1057.890 Output Total 2740 1320 1700 Balance -738.209 2960.440 -642.110 Weight 111.5 kg 109.8 kg Intake: IV 220 200 120 Sodium Chloride 0.9 220 200 120 Intake, IV Titration 543.310 652.440 407.890 Amount Cefepime 2 gm In Sodium 125 25 Chloride 0.9% 100 ml @ 25 mls/hr IVPB Q8H DENISSE Rx#: [id number] Cisatracurium 200 mg In 90.201 200.000 Sodium Chloride 0.9% 180 ml @ 1 MCG/KG/MIN 5.184 mls/hr IV .Q24H DENISSE Rx#: [id number] Insulin Regular 100 unit 4.444 In Sodium Chloride 0.9% 100 ml @ Per Protocol IV .Q0M DENISSE Rx#:[id number] Norepinephrine 32 mg In 156.209 142.587 82.89 Sodium Chloride 0.9% 218 ml @ 0.84 MCG/KG/MIN 34. 02 mls/hr IV .Q7H21M DENISSE Rx#:[id number] propofoL 1,000 mg In 292.456 384.853 100 Empty Bag 1 bag @ 5 MCG/ KG/MIN 2.592 mls/hr IV . Q24H DENISSE Rx#:[id number] Tube Feeding 471 552 230 Other 1200 1200 300 Output: Urine 2740 1320 1700 Other: Voiding Method Indwelling Catheter Indwelling Catheter Indwelling Catheter ABP, PAP, CO, CI - Last Documented Arterial Blood Pressure 106/43 - Exam Physical Exam: Revealed a 60-year-old female, obese, unchanged, remains sedated paralyzed. Head: Atraumatic, normocephalic. Endotracheal tube and orogastric tube is intact. HEENT: Short obese neck. [Neck is supple.] [No neck masses.] [No thyromegaly.] [No JVD.] Chest: [Symmetrical chest expansion, crackles and rhonchi noted bilaterally. No wheezing subcutaneous emphysema noted in the neck area and in the chest. Cardiac Exam: Distant S1 and S2, no S3 gallop, no murmur. Abdomen: Obese, [Soft, nontender, no megaly, no rebound, no guarding, normal bowel sounds.] Extremities: [No clubbing, no edema, no cyanosis.] Good pulses bilaterally. Neurological Exam: Unable to assess, patient is sedated, he is on propofol, and Nimbex was admitted this morning. Psychiatric: Could not be assessed. - Labs CBC & Chem 7: 11/23/21 04:10 11/23/21 04:10 Labs: Abnormal Lab Results - Last 24 Hours (Table) 11/22/21 11/22/21 11/22/21 Range/Units 11:48 15:50 20:30 WBC (3.8-10.6) k/uL RBC (3.80-5.40) m/uL Hgb (11.4-16.0) gm/dL Hct (34.0-46.0) % RDW (11.5-15.5) % Neutrophils # (Manual) (1.3-7.7) k/uL Metamyelocytes # (Man) (0) k/uL Myelocytes # (Manual) (0) k/uL Nucleated RBCs (0-0) /100 WBC ABG pH (7.35-7.45) ABG pCO2 (35-45) mmHg ABG pO2 (83-108) mmHg ABG HCO3 (21-25) mmol/L ABG Total CO2 (19-24) mmol/L ABG O2 Saturation (94-97) % Potassium (3.5-5.1) mmol/L Carbon Dioxide (22-30) mmol/L BUN (7-17) mg/dL Glucose (74-99) mg/dL POC Glucose (mg/dL) 258 H 245 H 199 H (70-110) mg/dL Calcium (8.4-10.2) mg/dL Total Protein (6.3-8.2) g/dL Albumin (3.5-5.0) g/dL 11/22/21 11/23/21 11/23/21 Range/Units 23:48 04:10 04:10 WBC 18.6 H (3.8-10.6) k/uL RBC 2.58 L (3.80-5.40) m/uL Hgb 7.0 L (11.4-16.0) gm/dL Hct 22.4 L (34.0-46.0) % RDW 17.9 H (11.5-15.5) % Neutrophils # (Manual) 15.20 H (1.3-7.7) k/uL Metamyelocytes # (Man) 0.37 H (0) k/uL Myelocytes # (Manual) 0.37 H (0) k/uL Nucleated RBCs 2 H (0-0) /100 WBC ABG pH (7.35-7.45) ABG pCO2 (35-45) mmHg ABG pO2 (83-108) mmHg ABG HCO3 (21-25) mmol/L ABG Total CO2 (19-24) mmol/L ABG O2 Saturation (94-97) % Potassium 3.4 L (3.5-5.1) mmol/L Carbon Dioxide 37 H (22-30) mmol/L BUN 63 H (7-17) mg/dL Glucose 127 H (74-99) mg/dL POC Glucose (mg/dL) 154 H (70-110) mg/dL Calcium 8.1 L (8.4-10.2) mg/dL Total Protein 4.3 L (6.3-8.2) g/dL Albumin 2.3 L (3.5-5.0) g/dL 11/23/21 11/23/21 11/23/21 Range/Units 04:15 05:47 09:10 WBC (3.8-10.6) k/uL RBC (3.80-5.40) m/uL Hgb (11.4-16.0) gm/dL Hct (34.0-46.0) % RDW (11.5-15.5) % Neutrophils # (Manual) (1.3-7.7) k/uL Metamyelocytes # (Man) (0) k/uL Myelocytes # (Manual) (0) k/uL Nucleated RBCs (0-0) /100 WBC ABG pH 7.30 L (7.35-7.45) ABG pCO2 73 H* (35-45) mmHg ABG pO2 63 L (83-108) mmHg ABG HCO3 36 H (21-25) mmol/L ABG Total CO2 38 H (19-24) mmol/L ABG O2 Saturation 92.6 L (94-97) % Potassium (3.5-5.1) mmol/L Carbon Dioxide (22-30) mmol/L BUN (7-17) mg/dL Glucose (74-99) mg/dL POC Glucose (mg/dL) 140 H 195 H (70-110) mg/dL Calcium (8.4-10.2) mg/dL Total Protein (6.3-8.2) g/dL Albumin (3.5-5.0) g/dL Microbiology - Last 24 Hours (Table) 11/16/21 12:02 Blood Culture - Final Blood No Growth after 144 hours 11/16/21 12:02 Blood Culture - Final Blood No Growth after 144 hours Assessment and Plan Assessment: Impression: Acute hypoxic respiratory failure secondary to COVID-19 pneumonia and ARDS. Barotrauma with pneumomediastinum and subcutaneous emphysema, but no pneumothorax. Expected. Septic shock requiring pressors in the form of norepinephrine and vasopressin. Cardiopulmonary arrest 2 requiring CPR 2 Acute metabolic encephalopathy and possible anoxic brain injury Covid 19 infection 10/28/2021 Acute kidney injury, improving Benign essential hypertension, patient is now on pressors for profound hypo tension Dyslipidemia Type 2 diabetes History of schizophrenia Hypothyroidism History of alcohol abuse History of marijuana use Chronic anemia Recommendation: Continue ventilatory support, PEEP is back up to 22 FiO2 is 65%. Otherwise no changes Continue sedation and paralysis Continue nutritional support Continue GI and DVT prophylaxis Continue to monitor electrolytes and inflammatory markers as well as renal profile Continue COVID-19 cocktail including Decadron Change insulin to insulin subcu instead of insulin drip. Remains critically ill Prognosis is extremely poor. Critical care time is over 30 minutes. We'll arrange for a meeting with the and discussed with him the option of comfort care measures Time with Patient: Greater than 30
[2021-11-23] MEDS ORDERED: bisacodyL 10 MG SUPP RECTAL STA (11:49)
--- NOTE | 2021-11-23 12:04 | P.PN ---
Progress Note - Text Progress Note Date: 11/23/21 Chief Complaint: Decreased mentation History of presenting complaint: This is a 50-year-old patient, who follows with Dr. Saenz . Resident of [facility] [place].. known history of bipolar disorder and schizophrenia. 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 Patient was here in May 2021. Severe hypernatremia, acute kidney injury metabolic encephalopathy. 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 Low-dose and high-dose dexamethasone test was put on telemetry specific. Does of Synthroid was increased. Patient now brought in from [facility]. Patient was diagnosed with COVID 19 a few days ago. Was on Paxil of it. Patient became increasingly lethargic. Patient is felt to secondary bacterial pneumonia. Given Levaquin and transferred here. Also noted. Significantly hypernatremic. Patient admitted to ICU. Consultation is made to customer service sales associate, nephrology, psychiatry, neurology. This morning patient int ICU. On a Precedex drip. BiPAP. Lethargic. Not able to give any history. Admitted with COVID 19 pneumonitis, hypoxia, possibly secondary bacterial pneumonia, severe hyponatremia, severe metabolic encephalopathy, acute kidney injury. On IV Precedex. IV fluids. Levaquin. EEG. November 08: ICU: On BiPAP 12/5. IV Precedex. Lethargic. IV Levaquin. Oral bicarbonate. Medications through NG tube. EEG pending. November 09: ICU: On BiPAP 12/5. Off Precedex. Remains lethargic a bit restless. November 10: ICU: On BiPAP 12. Remains on Precedex. IV fluids. Sinus rhythm. Remains encephalopathic/delirious. 11/14/2021 Sonny Rubin feels better today, he does not feel dizziness while he is lying in bed all the time. He still have low appetite but no chest pain or dyspnea, no abdominal pain. He still complaining from pain in his legs and he has right leg DVT been on Lovenox with plan to switch him to heparin drip on today as he got midline Blood pressure is 87/56, heart rate 120, sodium is 121 On admission his sodium was still low and was started on D5 normal saline at 100 mL/h however after initial improvement sodium dropped to 121 yesterday so we held his IV fluid and the evening sodium improved 124 (no iv lasix given), however this morning is 121 again. We send urine studies and I'll consult ne phrologist. Also patient has negative CTPA for pulmonary embolism but CT of the abdomen and pelvis showing possible gallbladder fossa abscess or complex fluid collection although it is improved from previous 5 cm down to 2.7 centimeters. The recommended liver ultrasound versus MRI, ultrasound shows the same findings. Also surgery due on the case 11/15/2021 Last night his blood pressure dropped with systolic and 50s, there was a rapid response a team response and he was as stated with IV fluids aggressively, his blood pressure improved in 90s this morning and during the round he was awake an d alert looks tired but is appropriate. Sodium was 121 and then 119. He denied any chest pain or abdominal pain, no other complaints clinically. His losing from his puncture wound in the right lower abdomen was a stopped, he was started on heparin drip per recommendation of job spotter. After once by the evening time his blood pressure dropped again was 53/32 with altered mental status, there was another rapid response where patient was transferred to the ICU and levophed was started and his mentation started to improve again. Patient was started also on antibiotic empirically with Zosyn and IV vancomycin total infection ruled out completely as there is still high suspicion, with possible sources including the pressure wound sacral ulcer in the lower back, and less likely the gallbladder bed and fossa with 2.7 cm fluid collection (felt less likely because actually it decreased in size from 5.0 cm previously) After transfer patient and at bedside opted for the DO NOT RESUSCITATE order as per bedside nurse. 11/16/2021 Yesterday patient was still deteriorating, however today patient turned around and start improving patient remains in the ICU he needs to pressors we will fit and vasopressin, lactic acid trending up 6.4. Patient mentation is also deteriorated and become more confused and less responsive. His creatinine remains around 1 although he has low urine output. Patient is resuscitated with many fluids and also his broad-spectrum antibiotics with IV vancomycin and Zosyn, as septic shock is highly suspected is the cause of the patient profound hypotension and shock state. Although other factors might be contributing to it. Because of this we started the patient on hydrocortisone to increase the sensitivity of the adrenergic receptors to the catecholamine. Also replacing electrolytes including calcium and magnesium. Sodium slightly trending up. Patient remains in critical condition. Family at bedside 11/17/2021 Patient today workup and he was awake alert and oriented 3, he follows commands, he feels hungry and actually he started tolerating diet for the first time after several months. He denies any respiratory symptoms, his abdomen looks benign, no other new complaints. Blood pressure is improving and he required less pressors, currently blood pressure is 87/61, is less tachycardic around 110. He is currently on levophed 0.03 which is decreased from yesterday. Last night we added hydrocortisone 100 mg 3 times a day as a replacement therapy but to support blood pressure and increased sensitivity of levophed to its adrenergic receptors. Since blood pressure improvement with lower dose to 50 mg today, possibly we will discontinue it in one or 2 days once blood pressure keep improvement. Also patient receiving fluids. Labs looks stable, hemoglobin 9.8, sodium 126 he remains on Zosyn, vancomycin was discontinued. He remains on Zosyn. Anticoagulation is switched to Eliquis therapeutic dose at 10 mg which could be switched to 5 mg on 11/27. Prognosis remains guarded 11/18/2021 Patient is awake but drowsy, His blood pressure is improving but he still on pressors although is requiring less amount He has poor urine output but creatinine is around 1.1. His GFR is 66. He is going to receive 1 dose of Lasix 80 mg today. Also significant sodium bicarb and albumin infusion. He remains on Zosyn Anticoagulation with Eliquis Patient was seen and covered by [facility] from November 14 through November 18. 11/19/2021: I resumed care of patient today ICU: Ventilated intubated. FiO2 50 and a PEEP of 22. Telemetry sinus rhythm. Drips include norepinephrine, propofol, insulin, vasopressin. Nimbex was discontinued earlier today. Receiving a unit of blood. 2 feeding at 55 mL an hour. Bicarbonate infusion discontinued earlier. NG tube. 11/20/2021: ICU: On the ventilator. Intubated. FiO2 16 a PEEP of 22. Drips include vasopressin, levo fed, propofol, insulin. 2 feeding at 55 mL an hour. Telemetry shows sinus rhythm. His sed rate. Spoke to the sister at the bedside. Sedation holiday was tried. Patient became agitated. 11/21/2021: ICU: On the ventilator. Intubated. FiO2 55 and a PEEP of 22. This include vasopressin, norepinephrine, propofol. Telemetry shows sinus rhythm. NG tube in place. 2 feeding at 41 mL an hour. 11/22/2021: ICU: Ventilated a slight intubated. FiO2 16 a PEEP of 20. Patient is put on Nimbex drip yesterday. Other drips include vasopressin, levo fed, propofol. NG tube remains in place. Water was added. Sodium better. 2 feeding at 41 mL an hour. 11/23/2021: ICU: Ventilated/intubated. FiO2 of 60 and a PEEP of 22. Drips include vasopressin, norepinephrine, propofol, Nimbex. 2 feeding at 46 mL an hour. Sinus rhythm. Free water through NG tube. Active Medications Apixaban (Apixaban 5 Mg Tab) 5 mg PO BID [facility]; Protocol Last Admin: 11/23/21 08:44 Dose: 5 mg Artificial Tears (Artificial Tears-Hypromellose Drops 15 Ml Btl) 1 drops BOTH EYES Q4HR [facility] Last Admin: 11/23/21 09:06 Dose: 1 drops Aspirin (Aspirin 81 Mg) 81 mg PO DAILY@0900 [facility] Last Admin: 11/23/21 08:44 Dose: 81 mg Atorvastatin Calcium (Atorvastatin 40 Mg Tab) 40 mg PO HS@2100 [facility] Last Admin: 11/22/21 20:38 Dose: 40 mg Chlorhexidine Gluconate (Chlorhexidine Gluconate 15 Ml Cup) 15 ml MUCOUS MEM BID [facility] Last Admin: 11/23/21 08:43 Dose: 15 ml Clozapine (Clozapine 100 Mg Tab) 200 mg PO TID@0900,1300,2100 [facility] Stop: 11/29/21 10:21 Last Admin: 11/23/21 08:48 Dose: 200 mg Dexamethasone Sodium Phosphate (Dexamethasone Sod Phosphate 10 Mg/Ml 1 Ml Vial) 6 mg IVP DAILY [facility] Last Admin: 11/23/21 08:45 Dose: 6 mg Furosemide (Furosemide 10 Mg/Ml 4 Ml Vial) 40 mg IV DAILY [facility] Last Admin: 11/23/21 08:44 Dose: 40 mg Furosemide (Furosemide 10 Mg/Ml 4 Ml Vial) 40 mg IV ONCE ONE Stop: 11/23/21 17:01 Cisatracurium Besylate 200 mg/ (Sodium Chloride) 200 mls @ 5.184 mls/hr IV .Q24H [facility]; Protocol Last Admin: 11/23/21 10:49 Dose: 2 mcg/kg/min, 10.368 mls/hr Propofol 1,000 mg/ IV Solution 100 mls @ 2.592 mls/hr IV .Q24H [facility]; Protocol Last Admin: 11/23/21 09:47 Dose: 55 mcg/kg/min, 28.512 mls/hr Vasopressin 20 unit/ Sodium (Chloride) 51 mls @ 4.59 mls/hr IVPB .Q11H7M [facility] Last Admin: 11/23/21 07:08 Dose: 4.59 mls/hr Norepinephrine Bitartrate 32 (mg/ Sodium Chloride) 250 mls @ 34.02 mls/hr IV .Q7H21M [facility]; Protocol Last Admin: 11/23/21 07:07 Dose: 0.41 mcg/kg/min, 16.605 mls/hr Sodium Chloride (Saline 0.9%) 500 mls @ 20 mls/hr IV .Q24H [facility] Last Admin: 11/22/21 08:11 Dose: 20 mls/hr Cefepime HCl 2 gm/ Sodium (Chloride) 100 mls @ 25 mls/hr IVPB Q8H [facility]; Protocol Last Admin: 11/23/21 07:11 Dose: 25 mls/hr Insulin Aspart (Insulin Aspart (Novolog) 100 Unit/Ml Vial) 0 unit SQ Q4HR [facility]; Protocol Last Admin: 11/23/21 09:14 Dose: 5 unit Insulin Detemir (Insulin Detemir (Levemir) 100 Unit/Ml Syr) 10 unit SQ DAILY@0700 [facility] Last Admin: 11/23/21 06:06 Dose: 10 unit Lamotrigine (Lamotrigine 25 Mg Tab) 25 mg PO BID@0900,2100 [facility] Last Admin: 11/23/21 08:48 Dose: 25 mg Levothyroxine Sodium (Levothyroxine 100 Mcg Tab) 100 mcg PO DAILY@0600 [facility] Last Admin: 11/23/21 06:05 Dose: 100 mcg Miscellaneous Information (Pneumonia Protocol Utilized 1 Each Misc) 1 each PO ONCE PRN PRN Reason: Per Protocol Miscellaneous Information (Potassium Replacement Protocol 1 Each Misc) 1 each MISCELLANE DAILY PRN; Protocol PRN Reason: Per Protocol Naloxone HCl (Naloxone 0.4 Mg/Ml 1 Ml Vial) 0.2 mg IV Q2M PRN PRN Reason: Opioid Reversal Pantoprazole Sodium (Pantoprazole 40 Mg/10 Ml Vial) 40 mg IV DAILY [facility] Last Admin: 11/23/21 08:45 Dose: 40 mg Thiamine HCl (Thiamine 100 Mg Tab) 100 mg PO DAILY [facility] Last Admin: 11/23/21 08:43 Dose: 100 mg Past medical history to include: Hypertension, hypothyroid, bipolar disorder, schizophrenia. excessive alcohol use in the past. No smoking. Psychosis, catatonic-like syndrome Social history: Heavy alcohol use in the past. . No smoking. Currently at [facility] Family history: Patient cannot tell Physical examination: VITAL SIGNS: 97.3, 70, 32, 105/48, 97% on the ventilator GENERAL: Intubated on the ventilator. Sedated EYES: Pupils equal. Conjunctiva normal. HEENT: External appearance of nose and ears normal, oral cavity dry. NG tube NECK: JVD unable to assess; masses not palpable. HEART: First and second heart sounds are normal; some edema. LUNGS: Respiratory rate increased; decreased breath sounds ABDOMEN: Soft, nontender, liver spleen not palpable, no masses palpable. PSYCH: Patient sedated, unable to assess MUSCULOSKELETAL:No Clubbing/cyanosis;muscles-grossly intact. NEUROLOGICAL: Pupils sluggish INVESTIGATIONS, reviewed in the clinical context: November 23: WBC 10.6 hemoglobin 7 platelets 208 potassium 3.4 BUN 63 creatinine 0.68 November 22: WBC 14.8 hemoglobin 7.4 potassium 3.9 creatinine 0.74 sodium 141. ABG: PH 7.31 pCO2 71 pO2 57 November 21: WBC 14.1 hemoglobin 7.3 platelets 187 sodium 146 bicarbonate 35 creatinine 0.94. ABG: PH 7.29 pCO2 70 pO2 88 November 20: WBC 14 hemoglobin 8.1 sodium 150 potassium 3.4 BUN 61 creatinine 1.09 bicarbonate 33. ABG: PO2 of 56 November 19: WBC is 16.3 hemoglobin 6.7 platelets 206 November 10: WBC 15.2 hemoglobin 11.2 sodium 150 progression 4. 36 creatinine 1.13 November 09: WBC 14.6 hemoglobin 11.4 2149 potassium 4.2 BUN 44 creatinine 1.27 November 08: WBC 12.7 hemoglobin 11.4 sodium 153 potassium 4.5 BUN 60 creatinine 1.55 cortisol 18 November 07: White count 20.7 hemoglobin 12 platelets 345 sodium 162 potassium 4.2. 58 creatinine 2.13 ammonia less than 9 COVID 19: Detected November 06: White count 9.5 hemoglobin 12.6 platelets 321 sodium 157 potassium 4.3 chloride 124 BUN 50 creatinine 2.04 UA positive for leukoesterase, WBC Pro-calcitonin 1.11 Chest x-ray film personally reviewed by me-scattered infiltrate EKG tracing personally reviewed by me-sinus rhythm Previous labs: BUN 9 creatinine 0.95 on June 2021 Assessment and plan: -Severe hypernatremia, from free water deficit from decreased oral intake: Better Free fluid -ARDS, multifactorial: Not improving Requiring high PEEP. -COVID 19 with pneumonitis/hypoxia: Slow to respond Intubated Dexamethasone 6 mg -Possible secondary bacterial pneumonia : Slow to respond IV cefepime -Acute hypoxic respiratory failure from respiratory suppression multifactorial: Not improving Initially BiPAP 04/23. Currently intubated -Acute severe metabolic encephalopathy from renal failure and delirium: Slow to respond Treat underlying conditions. -Schizoaffective disorder, bipolar type. Psychosis: Clozaril 200 mg by mouth daily 3 times a day Lamictal 25 mg twice a day Ativan 1 mg IV every 4 when necessary -Bipolar disorder See above medications -Acute kidney injury, possibly prerenal/ ATN : Corrected Admission creatinine 2.04. Received fluids -Diabetes mellitus type 2, on oral hypoglycemic Follow Accu-Cheks. Levemir 10 units a day. -Hypothyroid, Synthroid 100g a day -Hyperlipidemia Lipitor 40 mg daily at bedtime TriCor 134 mg before supper -Chronic DVT both lower extremity diagnosed on October 19 2020 [place]. -Hypernatremia, from free water deficit: Corrected Free water through NG tube -Full code IV norepinephrine, propofol, insulin, vasopressin, Nimbex. Tube feeding at 44 mL an hour. Intubated . Increase Levemir to 18 units in the morning. Prognosis guarded.
[2021-11-23] MEDS: SODIUM CHLORIDE 0.9% 500 ML 500 ML IV SCH (12:40)
[2021-11-23 15:57] LABS: Glucose,Whole Blood 230 mg/dL (70-110)
[2021-11-23] MEDS ORDERED: FUROSEMIDE 10 MG/ML 4 ML VIAL IV ONE (17:00)
[2021-11-23 20:17] LABS: Glucose,Whole Blood 205 mg/dL (70-110)
[2021-11-23] MEDS: ATORVASTATIN 40 MG TAB PO SCH (20:31)
[2021-11-23 23:48] LABS: Anisocytosis Slight; HCT 26.1 % (34.0-46.0); HGB 8.3 gm/dL (11.4-16.0); Hypochromasia Marked; MCH 28.2 pg (25.0-35.0); MCHC 31.7 g/dL (31.0-37.0); MCV 88.7 fL (80.0-100.0); Mean Platelet Volume 8.5; Platelet Count 188 k/uL (150-450); Poikilocytosis Slight; RBC 2.94 m/uL (3.80-5.40); RDW 17.6 % (11.5-15.5)
[2021-11-23 23:50] LABS: Glucose,Whole Blood 181 mg/dL (70-110)
[2021-11-24 01:20] LABS: Band Neutrophils % 25 %; Metamyelocytes % 4 %; Myelocytes # (M) 0.15 k/uL (0); Myelocytes % 1 %; Neutrophils % (M) 68 %; Nucleated Red Blood Cells 5 /100 WBC (0-0); Total Cells Counted 200
[2021-11-24 01:21] LABS: Basophilic Stippling Present; Large Platelets Present; Polychromasia Present
[2021-11-24 04:27] LABS: Glucose,Whole Blood 187 mg/dL (70-110)
[2021-11-24] MEDS: INSULIN ASPART (NovoLOG) 100 UNIT/ML VIAL SQ SCH ×6 (04:40→20:42)
[2021-11-24] MEDS: ARTIFICIAL TEARS-HYPROMELLOSE DROPS 15 ML BTL BOTH EYES SCH ×5 (04:41→20:41)
[2021-11-24] MEDS: CEFEPIME 2 GM in SODIUM CHLORIDE 0.9% 100 ML IVPB SCH ×3 (05:01→20:42)
[2021-11-24 05:18] LABS: ALT 15 U/L (4-34); AST 31 U/L (14-36); African American GFR (CKD) >90 (>60 ml/min/1.73 sqM); Albumin 2.3 g/dL (3.5-5.0); Alkaline Phosphatase 60 U/L (38-126); Anion Gap 0 mmol/L; Blood Urea Nitrogen 63 mg/dL (7-17); Calcium 8.3 mg/dL (8.4-10.2); Carbon Dioxide 38 mmol/L (22-30); Chloride 102 mmol/L (98-107); Glucose 179 mg/dL (74-99); Non-African American GFR(CKD) >90 (>60 ml/min/1.73 sqM); Potassium 3.3 mmol/L (3.5-5.1); Sodium 140 mmol/L (137-145); Total Bilirubin 0.4 mg/dL (0.2-1.3); Total Protein 4.3 g/dL (6.3-8.2)
[2021-11-24 05:41] LABS: Anisocytosis Slight; HCT 25.5 % (34.0-46.0); HGB 8.2 gm/dL (11.4-16.0); Hypochromasia Marked; MCH 28.3 pg (25.0-35.0); MCV 88.4 fL (80.0-100.0); Mean Platelet Volume 9.1; Platelet Count 202 k/uL (150-450); Poikilocytosis Slight; RBC 2.89 m/uL (3.80-5.40); RDW 17.8 % (11.5-15.5)
[2021-11-24 05:53] LABS: ABG Base Excess 10.7 mmol/L; ABG HCO3 37 mmol/L (21-25); ABG Oxygen Saturation 95.8 % (94-97); ABG PH 7.28 (7.35-7.45); ABG PO2 75 mmHg (83-108); ABG TCO2 40 mmol/L (19-24); Allen Test Performed? Yes
[2021-11-24 05:54] LABS: ABG PCO2 79 mmHg (35-45)
[2021-11-24] MEDS: POTASSIUM BICARBONATE/CIT AC 20 MEQ TABLET.EFF NG-TUBE SCH ×2 (05:59→06:53)
[2021-11-24] MEDS: LEVOTHYROXINE 100 MCG TAB PO SCH (05:59)
[2021-11-24] MEDS ORDERED: INSULIN DETEMIR (LEVEMIR) 100 UNIT/ML SYR SQ SCH (07:00)
--- NOTE | 2021-11-24 08:18 | XR ---
EXAMINATION TYPE: XR chest 1V portable DATE OF EXAM: 11/24/2021 COMPARISON: Chest x-ray 11/23/2021 HISTORY: Covid ARDS TECHNIQUE: Single frontal view of the chest is obtained. FINDINGS: There is no significant interval change. Instrumentation is stable. There is extensive sub cutaneous emphysema. There is pneumomediastinum. Cardiac mediastinal silhouette is stable accounting for differences in technique. Bilateral airspace disease is again seen. No pneumothorax or pleural ef fusion. IMPRESSION: Findings consistent with pneumonia, ARDS.
[2021-11-24 08:33] LABS: Glucose,Whole Blood 194 mg/dL (70-110)
[2021-11-24] MEDS: FUROSEMIDE 10 MG/ML 4 ML VIAL IV SCH (08:35)
[2021-11-24] MEDS: APIXABAN 5 MG TAB PO SCH ×2 (08:36→20:42)
[2021-11-24] MEDS: ASPIRIN 81 MG PO SCH (08:36)
[2021-11-24] MEDS: PANTOPRAZOLE 40 MG/10 ML VIAL IV SCH (08:36)
[2021-11-24] MEDS: CHLORHEXIDINE GLUCONATE 15 ML CUP MUCOUS MEM SCH ×2 (08:36→20:43)
[2021-11-24] MEDS: THIAMINE 100 MG TAB PO SCH (08:36)
[2021-11-24] MEDS: DEXAMETHASONE SOD PHOSPHATE 10 MG/ML 1 ML VIAL IVP SCH (08:36)
[2021-11-24] MEDS: lamoTRIgine 25 MG TAB PO SCH ×2 (08:37→21:01)
[2021-11-24] MEDS: cloZAPine 100 MG TAB PO SCH ×3 (08:37→20:43)
[2021-11-24 08:48] LABS: Band Neutrophils % 8 %; Metamyelocytes % 5 %; Myelocytes % 5 %; Neutrophils % (M) 75 %; Nucleated Red Blood Cells 2 /100 WBC (0-0); Total Cells Counted 200
[2021-11-24 08:49] LABS: Metamyelocytes # (M) 0.86 k/uL (0); Monocytes # (M) 0.34 k/uL (0-1.0); Myelocytes # (M) 0.86 k/uL (0); WBC 17.1 k/uL (3.8-10.6)
[2021-11-24 08:51] LABS: Basophilic Stippling Present
[2021-11-24 08:52] LABS: Polychromasia Present
[2021-11-24] MEDS: SODIUM CHLORIDE 0.9% 50 ML with VASOPRESSIN 20 UNIT IVPB SCH ×2 (09:06)
--- NOTE | 2021-11-24 09:18 | P.PN ---
Subjective Patient is seen in follow-up for acute kidney injury. Patient had a cardiac arrest this admission. She is currently intubated. She remains on Levophed and vasopressin. Renal function back to baseline. Receiving tube feeds. Sodium level stable. On 60% FiO2 and high PEEP. Vital signs are stable. General: Resting in bed. On vasopressor support. HEENT: Intubated. LUNGS: Breath sounds decreased. HEART: Regular rate and rhythm. ABDOMEN: Soft, no distention. EXTREMITITES: 1+ edema. Objective - Vital Signs Vital signs: Vital Signs Temp 98.0 F 11/24/21 07:30 Pulse 77 11/24/21 08:00 Resp 32 H 11/24/21 08:00 BP 107/59 11/24/21 08:00 Pulse Ox 94 L 11/24/21 08:00 FiO2 60 11/24/21 07:30 Intake & Output 11/23/21 11/24/21 11/24/21 18:59 06:59 18:59 Intake Total 2508.090 2760.557 54.809 Output Total 3245 1765 100 Balance -736.910 995.557 -45.191 Weight 106.8 kg Intake: IV 470 110 Sodium Chloride 0.9 470 110 Intake, IV Titration 586.090 888.557 8.809 Amount Cefepime 2 gm In Sodium 25 200 Chloride 0.9% 100 ml @ 25 mls/hr IVPB Q8H [facility] Rx#: [id number] Cisatracurium 200 mg In 200.000 Sodium Chloride 0.9% 180 ml @ 1 MCG/KG/MIN 5.184 mls/hr IV .Q24H [facility] Rx#: [id number] Norepinephrine 32 mg In 82.89 388.557 8.809 Sodium Chloride 0.9% 218 ml @ 0.84 MCG/KG/MIN 34. 02 mls/hr IV .Q7H21M [facility] Rx#:[id number] propofoL 1,000 mg In 278.200 300 Empty Bag 1 bag @ 5 MCG/ KG/MIN 2.592 mls/hr IV . Q24H [facility] Rx#:[id number] Tube Feeding 552 552 46 Blood Product 0 310 Rc As-1 Unit 0 310 [id number] Other 900 900 Output: Urine 3245 1765 100 Other: Voiding Method Indwelling Catheter Indwelling Catheter ABP, PAP, CO, CI - Last Documented Arterial Blood Pressure 110/52 - Labs CBC & Chem 7: 11/24/21 04:27 11/24/21 04:27 Labs: Abnormal Lab Results - Last 24 Hours (Table) 11/19/21 11/23/21 11/23/21 Range/Units 06:58 11:34 13:24 WBC (3.8-10.6) k/uL RBC (3.80-5.40) m/uL Hgb (11.4-16.0) gm/dL Hct (34.0-46.0) % RDW (11.5-15.5) % Neutrophils # (Manual) (1.3-7.7) k/uL Lymphocytes # (Manual) (1.0-4.8) k/uL Metamyelocytes # (Man) (0) k/uL Myelocytes # (Manual) (0) k/uL Nucleated RBCs (0-0) /100 WBC ABG pH (7.35-7.45) ABG pCO2 (35-45) mmHg ABG pO2 (83-108) mmHg ABG HCO3 (21-25) mmol/L ABG Total CO2 (19-24) mmol/L Potassium (3.5-5.1) mmol/L Carbon Dioxide (22-30) mmol/L BUN (7-17) mg/dL Glucose (74-99) mg/dL POC Glucose (mg/dL) 236 H (70-110) mg/dL Calcium (8.4-10.2) mg/dL Total Protein (6.3-8.2) g/dL Albumin (3.5-5.0) g/dL Crossmatch See Detail See Detail 11/23/21 11/23/21 11/23/21 Range/Units 15:54 20:16 22:10 WBC 15.0 H (3.8-10.6) k/uL RBC 2.94 L (3.80-5.40) m/uL Hgb 8.3 L (11.4-16.0) gm/dL Hct 26.1 L (34.0-46.0) % RDW 17.6 H (11.5-15.5) % Neutrophils # (Manual) 13.90 H (1.3-7.7) k/uL Lymphocytes # (Manual) 0.60 L (1.0-4.8) k/uL Metamyelocytes # (Man) 0.60 H (0) k/uL Myelocytes # (Manual) 0.15 H (0) k/uL Nucleated RBCs 5 H (0-0) /100 WBC ABG pH (7.35-7.45) ABG pCO2 (35-45) mmHg ABG pO2 (83-108) mmHg ABG HCO3 (21-25) mmol/L ABG Total CO2 (19-24) mmol/L Potassium (3.5-5.1) mmol/L Carbon Dioxide (22-30) mmol/L BUN (7-17) mg/dL Glucose (74-99) mg/dL POC Glucose (mg/dL) 230 H 205 H (70-110) mg/dL Calcium (8.4-10.2) mg/dL Total Protein (6.3-8.2) g/dL Albumin (3.5-5.0) g/dL Crossmatch 11/23/21 11/24/21 11/24/21 Range/Units 23:48 04:25 04:27 WBC 17.1 H (3.8-10.6) k/uL RBC 2.89 L (3.80-5.40) m/uL Hgb 8.2 L (11.4-16.0) gm/dL Hct 25.5 L (34.0-46.0) % RDW 17.8 H (11.5-15.5) % Neutrophils # (Manual) 14.10 H (1.3-7.7) k/uL Lymphocytes # (Manual) (1.0-4.8) k/uL Metamyelocytes # (Man) 0.86 H (0) k/uL Myelocytes # (Manual) 0.86 H (0) k/uL Nucleated RBCs 2 H (0-0) /100 WBC ABG pH (7.35-7.45) ABG pCO2 (35-45) mmHg ABG pO2 (83-108) mmHg ABG HCO3 (21-25) mmol/L ABG Total CO2 (19-24) mmol/L Potassium (3.5-5.1) mmol/L Carbon Dioxide (22-30) mmol/L BUN (7-17) mg/dL Glucose (74-99) mg/dL POC Glucose (mg/dL) 181 H 187 H (70-110) mg/dL Calcium (8.4-10.2) mg/dL Total Protein (6.3-8.2) g/dL Albumin (3.5-5.0) g/dL Crossmatch 11/24/21 11/24/21 11/24/21 Range/Units 04:27 05:49 08:32 WBC (3.8-10.6) k/uL RBC (3.80-5.40) m/uL Hgb (11.4-16.0) gm/dL Hct (34.0-46.0) % RDW (11.5-15.5) % Neutrophils # (Manual) (1.3-7.7) k/uL Lymphocytes # (Manual) (1.0-4.8) k/uL Metamyelocytes # (Man) (0) k/uL Myelocytes # (Manual) (0) k/uL Nucleated RBCs (0-0) /100 WBC ABG pH 7.28 L (7.35-7.45) ABG pCO2 79 H* (35-45) mmHg ABG pO2 75 L (83-108) mmHg ABG HCO3 37 H (21-25) mmol/L ABG Total CO2 40 H (19-24) mmol/L Potassium 3.3 L (3.5-5.1) mmol/L Carbon Dioxide 38 H (22-30) mmol/L BUN 63 H (7-17) mg/dL Glucose 179 H (74-99) mg/dL POC Glucose (mg/dL) 194 H (70-110) mg/dL Calcium 8.3 L (8.4-10.2) mg/dL Total Protein 4.3 L (6.3-8.2) g/dL Albumin 2.3 L (3.5-5.0) g/dL Crossmatch Assessment and Plan Plan: Assessment: 1. Acute kidney injury secondary to ATN secondary to cardiac arrest/shock. Resolved. Renal function resolved. Nonoliguric. No hydronephrosis noted on kidney ultrasound. 2. Hypernatremia from lack of oral water intake. Improved. 3. Acute hypercapnic respiratory failure. Improved. 4. Status post cardiac arrest this admission. 5. Recent coronavirus infection. 6. Acute blood loss anemia. No active bleeding. Status post blood transfusion this admission. Iron replete. 7. Hypokalemia from poor intake. Magnesium normal. 8. Volume overload. Receiving IV Lasix. Plan: Maintain tube feeds. Maintain free water flushes at 300 mL every 4 hours. Wean FiO2 and vasopressors. Avoid nephrotoxins. Continue to monitor renal function and urine output. Cortisol level not low data 11/08/2021. Currently on dexamethasone. Potassium replaced. Maintain IV Lasix. Comfort measures being considered.
--- NOTE | 2021-11-24 11:05 | P.PN ---
Subjective Progress Note Date: 11/24/21 The patient is seen at bedside and continues to be about the same. She continue to be on IV Nimbex and IV Propofol. Objective - Vital Signs Vital signs: Vital Signs Temp 98.0 F 11/24/21 07:30 Pulse 82 11/24/21 10:00 Resp 32 H 11/24/21 10:00 BP 94/44 11/24/21 10:00 Pulse Ox 95 11/24/21 10:00 FiO2 60 11/24/21 08:00 Intake & Output 11/23/21 11/24/21 11/24/21 18:59 06:59 18:59 Intake Total 2508.090 2760.557 618.809 Output Total 3245 1765 1350 Balance -736.910 995.557 -731.191 Weight 106.8 kg Intake: IV 470 110 80 Sodium Chloride 0.9 470 110 80 Intake, IV Titration 586.090 888.557 8.809 Amount Cefepime 2 gm In Sodium 25 200 Chloride 0.9% 100 ml @ 25 mls/hr IVPB Q8H DENISSE Rx#: [id number] Cisatracurium 200 mg In 200.000 Sodium Chloride 0.9% 180 ml @ 1 MCG/KG/MIN 5.184 mls/hr IV .Q24H DENISSE Rx#: [id number] Norepinephrine 32 mg In 82.89 388.557 8.809 Sodium Chloride 0.9% 218 ml @ 0.84 MCG/KG/MIN 34. 02 mls/hr IV .Q7H21M DENISSE Rx#:[id number] propofoL 1,000 mg In 278.200 300 Empty Bag 1 bag @ 5 MCG/ KG/MIN 2.592 mls/hr IV . Q24H DENISSE Rx#:[id number] Tube Feeding 552 552 230 Blood Product 0 310 Rc As-1 Unit 0 310 [id number] Other 900 900 300 Output: Urine 3245 1765 1350 Other: Voiding Method Indwelling Catheter Indwelling Catheter Indwelling Catheter ABP, PAP, CO, CI - Last Documented Arterial Blood Pressure 110/53 - Exam GENERAL: The patient is lying in bed and does not seem in acute distress.. LUNG: Intubated on vent and requiring high PEEP EXTREMITIES: Has crackling sensation on palpation of bilateral uppers proximal (left > right). NEUROLOGICAL: Limited. IV Nimbex 2mcg/kg/min and IV Propofol 55mcg/kg/min. Higher mental function: Is comatose. Cranial nerves:Pupils are pinpoint and no reactive to light. Is breathing at vent. Motor: Unable to asssess. Cerebellum: Unable to assess. Sensation: Unable to assess. - Labs CBC & Chem 7: 11/24/21 04:27 11/24/21 04:27 Labs: Abnormal Lab Results - Last 24 Hours (Table) 11/19/21 11/23/21 11/23/21 Range/Units 06:58 11:34 13:24 WBC (3.8-10.6) k/uL RBC (3.80-5.40) m/uL Hgb (11.4-16.0) gm/dL Hct (34.0-46.0) % RDW (11.5-15.5) % Neutrophils # (Manual) (1.3-7.7) k/uL Lymphocytes # (Manual) (1.0-4.8) k/uL Metamyelocytes # (Man) (0) k/uL Myelocytes # (Manual) (0) k/uL Nucleated RBCs (0-0) /100 WBC ABG pH (7.35-7.45) ABG pCO2 (35-45) mmHg ABG pO2 (83-108) mmHg ABG HCO3 (21-25) mmol/L ABG Total CO2 (19-24) mmol/L Potassium (3.5-5.1) mmol/L Carbon Dioxide (22-30) mmol/L BUN (7-17) mg/dL Glucose (74-99) mg/dL POC Glucose (mg/dL) 236 H (70-110) mg/dL Calcium (8.4-10.2) mg/dL Total Protein (6.3-8.2) g/dL Albumin (3.5-5.0) g/dL Crossmatch See Detail See Detail 11/23/21 11/23/21 11/23/21 Range/Units 15:54 20:16 22:10 WBC 15.0 H (3.8-10.6) k/uL RBC 2.94 L (3.80-5.40) m/uL Hgb 8.3 L (11.4-16.0) gm/dL Hct 26.1 L (34.0-46.0) % RDW 17.6 H (11.5-15.5) % Neutrophils # (Manual) 13.90 H (1.3-7.7) k/uL Lymphocytes # (Manual) 0.60 L (1.0-4.8) k/uL Metamyelocytes # (Man) 0.60 H (0) k/uL Myelocytes # (Manual) 0.15 H (0) k/uL Nucleated RBCs 5 H (0-0) /100 WBC ABG pH (7.35-7.45) ABG pCO2 (35-45) mmHg ABG pO2 (83-108) mmHg ABG HCO3 (21-25) mmol/L ABG Total CO2 (19-24) mmol/L Potassium (3.5-5.1) mmol/L Carbon Dioxide (22-30) mmol/L BUN (7-17) mg/dL Glucose (74-99) mg/dL POC Glucose (mg/dL) 230 H 205 H (70-110) mg/dL Calcium (8.4-10.2) mg/dL Total Protein (6.3-8.2) g/dL Albumin (3.5-5.0) g/dL Crossmatch 11/23/21 11/24/21 11/24/21 Range/Units 23:48 04:25 04:27 WBC 17.1 H (3.8-10.6) k/uL RBC 2.89 L (3.80-5.40) m/uL Hgb 8.2 L (11.4-16.0) gm/dL Hct 25.5 L (34.0-46.0) % RDW 17.8 H (11.5-15.5) % Neutrophils # (Manual) 14.10 H (1.3-7.7) k/uL Lymphocytes # (Manual) (1.0-4.8) k/uL Metamyelocytes # (Man) 0.86 H (0) k/uL Myelocytes # (Manual) 0.86 H (0) k/uL Nucleated RBCs 2 H (0-0) /100 WBC ABG pH (7.35-7.45) ABG pCO2 (35-45) mmHg ABG pO2 (83-108) mmHg ABG HCO3 (21-25) mmol/L ABG Total CO2 (19-24) mmol/L Potassium (3.5-5.1) mmol/L Carbon Dioxide (22-30) mmol/L BUN (7-17) mg/dL Glucose (74-99) mg/dL POC Glucose (mg/dL) 181 H 187 H (70-110) mg/dL Calcium (8.4-10.2) mg/dL Total Protein (6.3-8.2) g/dL Albumin (3.5-5.0) g/dL Crossmatch 11/24/21 11/24/21 11/24/21 Range/Units 04:27 05:49 08:32 WBC (3.8-10.6) k/uL RBC (3.80-5.40) m/uL Hgb (11.4-16.0) gm/dL Hct (34.0-46.0) % RDW (11.5-15.5) % Neutrophils # (Manual) (1.3-7.7) k/uL Lymphocytes # (Manual) (1.0-4.8) k/uL Metamyelocytes # (Man) (0) k/uL Myelocytes # (Manual) (0) k/uL Nucleated RBCs (0-0) /100 WBC ABG pH 7.28 L (7.35-7.45) ABG pCO2 79 H* (35-45) mmHg ABG pO2 75 L (83-108) mmHg ABG HCO3 37 H (21-25) mmol/L ABG Total CO2 40 H (19-24) mmol/L Potassium 3.3 L (3.5-5.1) mmol/L Carbon Dioxide 38 H (22-30) mmol/L BUN 63 H (7-17) mg/dL Glucose 179 H (74-99) mg/dL POC Glucose (mg/dL) 194 H (70-110) mg/dL Calcium 8.3 L (8.4-10.2) mg/dL Total Protein 4.3 L (6.3-8.2) g/dL Albumin 2.3 L (3.5-5.0) g/dL Crossmatch Assessment and Plan Assessment: Encephalopathy seems due to multifactorial: Predominately hypoxic encephalopathy due to COVID-19 pneumonia. Also component of metabolic encephalopathy (hypernatremia, JAYLA). Encephalopathy also due to medication effect (IV Propofol and Nimbex). Status post cardiac arrest with downtime of 10 minutes. Probable anoxic e ncephalopathy superimposed on pre-existing metabolic encephalopathy Significant Emphysema History of seizure and she had a seizure about 6-8 years ago (blank starkarla) while ?reported GTC on 03/15/2021 (but her 2.5 hour EEG and routine EEG was negative for seizure or epileptiform discharges) Acute hypoxemic respiratory failure secondary due to pneumonia Acute hypernatremia--resolved JAYLA--resolved Recent [place] virus infection History of diabetes History of hyperthyroid Schizoaffective disorder Primary history of tobacco use History of heavy alcohol use History of marijuana use Plan: * EEG was performed, which was abnormal due to background slowing of moderate to severe degree. This is suggestive of generalized cerebral dysfunction, as can be seen with toxic metabolic encephalopathy or due to diffuse structural brain abnormality. Clinical correlation recommended. No epileptiform activity was seen. * CT head repeat on 11/19/2021: It is reported as no acute intracranial process. Subcutaneous emphysema tracking into the skull base myofascial planes. Of note during this hospital stay patient has significant respiratory issues and has emphysema. * Repeat CT head: It is reported as age-related atrophic and chronic small vessel ischemic change without acute intracranial process seen at this time. I personally reviewed the CT of the head and I don't feel there is any change compared to prior. * Patient is on Eliquis, also on aspirin 81 mg and Lipitor 40 mg daily. * Nephrology team is on board * We'll defer the rest of the medical management to the primary and ICU team * Prognosis is poor. * Patient is NO CODE. * Patient wants to continue medical management. The plan is discussed with her nurse. Will follow-up with patient sporadically. Breezy Orozco M.D. Neuro-Hospitalist Time with Patient: Less than 30
[2021-11-24 11:50] LABS: Glucose,Whole Blood 212 mg/dL (70-110)
[2021-11-24] MEDS: NOREPINEPHRINE 32 MG in SODIUM CHLORIDE 0.9% 218 ML IV SCH ×2 (12:05→17:46)
[2021-11-24] MEDS: SODIUM CHLORIDE 0.9% 500 ML 500 ML IV SCH (12:08)
--- NOTE | 2021-11-24 12:33 | P.PN ---
Subjective Progress Note Date: 11/24/21 Principal diagnosis: Acute hypoxic respiratory failure, COVID-19 pneumonia, ARDS 50-year-old female, who is brought in by the [facility] emergency services. She apparently resides at [facility] in that area. She apparently has a history of schizophrenia, as well as a history of recent infection with coronavirus. The patient was brought in because of mental status changes, and also low saturations. Apparently the patient was evaluated there and thought to have pneumonia. The patient was treated with Levaquin here. Currently, she seen in the emergency room, room 11. She is on 15 L high flow oxygen. She's getting saline at 75 mL an hour. I did have the opportunity to speak to the patient's , name Art. He was able to provide some history . The [facility] is at [facility] as mentioned above, but is unable to prepare food for herself. Her mental status varies hour to hour and day today according to him. The patient herself can give me no history. She sees been here in the emergency department, she's been moaning and groaning. Her chest x- ray shows bilateral patchy infiltrates. A blood gas was done and showed a pO2 of 89, pCO2 35, and pH is 7.332. She apparently has a history of diabetes, hypertension, hyperlipidemia, and hypothyroidism. White count 11.5, hemoglobin 12.6, hematocrit 41.3, with a normal platelet count. Sodium 157, potassium 4.3, chlorides 124, CO2 19, anion gap 14, BUN 50, creatinine 2.04. Her lactic acid was 1.2. Pro-calcitonin level is pending. Urine is yellow and cloudy. There is 1+ protein. Trace blood. Small positive leukocyte esterase, 7 RBCs, 9 WBCs, and many bacteria. Chest x-ray shows patchy bilateral infiltrates. 11/20/2021, the patient is being seen for a follow-up in the intensive care unit for COVID 19 related pneumonia/ARDS and respiratory complications related to COVID 19 infection.. The patient is on propofol which is running at 55 mcg/kg per minute. The patient is currently off Nimbex. The patient was taken off Nimbex yesterday and the patient remains quite synchronous and still on a mechanical ventilator. There has been no signs of any neurologic recovery at this point in time. The patient remains completely unresponsive. The patient underwent a CAT scan of the brain yesterday that showed no acute abnormalities. The patient remains on assist-control mode of mechanical ventilation and the patient is currently on assist-control at the rate of 32, tidal volume of 375, FiO2 is at 60% with a PEEP of 22. Peak airway pressure is 38. Chest x-ray showed diffuse bilateral pulmonary infiltrates along with that there is subcutaneous emphysema extensively in the anterior chest on the neck area. No major change in the x-ray findings. Blood gases from today shows a pH of 7.29 with a pCO2 of 69 and pO2 of 56. The patient's acidosis is improved as the patient was given bicarb infusion. The pH is improved. Pressor requirements have also improved and the patient is on levo fed 0.2 mics respiratory per minute and the patient is on a physiologic dose of vasopressin at 0.03 units an hour. The patient is developing significant amount of third spacing and on today's labs the patient is a component of hypo-or uremic hypernatremia. The patient was started on D5 water at the rate of 60 mL an hour and the patient is also receiving free water through the NG replaced the free water deficit. Input output balance over the past 24 hours is positive for 0.6 L. The patient's sodium is at 150 with a potassium level of 3.4 and a BUN of 61 and a creatinine of 1.08. The white cell count is at 40 with a hemoglobin of 8.1. The patient remains on vital high protein at the rate of 55 mL an hour. She is afebrile. Pressor requirements are less. DNR/DNI CODE STATUS. Remains on Decadron. Today on 11/21/2021, patient remains in the ICU, intubated and mechanically ventilated. She is sedated, on propofol, off Nimbex, however patient needs to go back on Nimbex. Patient is on assist control rate of 3 to tidal volume 375 FiO2 60% and PEEP of 22. And after reviewing her ABG which showed a pO2 of 88 pCO2 70 pH of 7.29, I decreased her FiO2 to 55%. I have also increased her propofol to 75 mcg/kg/m, and I restarted the patient on Nimbex. CODE STATUS was changed to DO NOT RESUSCITATE CODE STATUS, and today I had a long discussion with family members and they seem to be inclined to consider possibly comfort care measures. Patient remains on norepinephrine at 0.25 mcg/kg/m vasopressin at 0.03 units per minute propofol presently at 55 mcg/kg/m insulin at 3 units per hour patient is on enteral feeding. She is on cefepime, eliquis, Lasix 40 mg IV push daily, and Decadron 6 mg IV push daily. Patient was intubated on 11/15, and since then she had cardiac arrest 2. Patient obviously sustained some severe metabolic encephalopathy and CT of the brain is basically nondiagnostic. Being followed by neurology on consultation. Chest x-ray today continues to show ARDS, and subcutaneous emphysema. WBC count is 14.1 hemoglobin 7.3 basic metabolic profile is normal BUN is 61 creatinine 0.94, last pro-calcitonin was 0.10. MedicationsShe is on eliquis, atorvastatin, cefepime, Peridex, Nimbex was restarted, she is also on clozapine, Decadron 6 mg IV push daily, Lasix 40 mg IV push daily Lamictal 25 mg twice a day Protonix 40 mg IV push daily, she is also on propofol, thiamine, norepinephrine and vasopressin Patient was reevaluated today on 11/22/2021, patient remains in the ICU, intubated and mechanically ventilated. She is on assist control rate of 3 to tidal volume 375 FiO2 55% and PEEP of 22. ABG showed a pO2 of 67 pCO2 71 pH of 7.31 hence I increased the FiO2 up to 60% and the PEEP went down to 20. Patient remains on multiple drips including Nimbex at 20 mcg/kg/min, propofol at 55 mcg/kg/m norepinephrine at 0.4 mcg/kg/m vasopressin at 0.03 units per minute and she is on IV fluid 0.9 normal saline at KVO. Patient is also on enteral feeding receiving vital AF at 41 mL per hour. She is also getting free water 400 mL every 4 hours. Her peak airway pressure today is 42+ to pressure is 40 consistent with severe ARDS. Chest x-ray continues to show bilateral interstitial infiltrates and significant subcutaneous emphysema. Overall not much of a change noted over the last 24 hours. Patient is practically above the same. She remains critically ill and she has severe poor prognosis. Patient was made DO NOT RESUSCITATE per family and based on my discussion with the family yesterday, apparently the is not yet ready to consider comfort care measures. He is very well aware of the poor prognosis. Labs today showed WBC count of 14.8 hemoglobin 7.4. Basic metabolic profile is normal BUN is 64 creatinine 0.74. ABG as noted above Patient was reevaluated today on 11/23/2021, patient remains in the ICU, intubated and mechanically ventilated. Not much of a change has been noted over the last few days. Remains critically ill, remains on assist control rate of 32 tidal volume of 375 FiO2 was increased last night to 70% and the PEEP is 20. Today I went ahead and increased the PEEP up to 22 and cut down the FiO2 to 65%. Patient remains on norepinephrine at 0.41 mcg/kg/m, vasopressin at 0.03 units per minutes. Propofol at 55 Nimbex at 2 mcg/kg/m. ABG on 60% showed a pO2 of 63 pCO2 of 73 pH of 7.30. CODE STATUS remains DO NOT RESUSCITATE, family is still undecided about comfort care measures although the prognosis seems to be extremely poor on this patient. Patient remains on vital AF for nutritional support at 46 mL per hour. She is also receiving free water 300 mL every 6 hours. Chest x-ray is basically about the same continues to show bilateral infiltrates, consistent with ARDS, and subcutaneous emphysema. No evidence of pneumothorax. WBC count is 18.6 hemoglobin is 7 hematocrit is 22.4. Patient has leukocytosis with bandemia and her PMNs of 19%. Urine cultures and blood cultures and sputum cultures have been negative. Basic metabolic profile is basically normal and unchanged BUN remains elevated at 63 creatinine is normal at 0.68. Antibiotics wilson, the patient remains on cefepime, she is also on insulin subcu. Remains on Decadron 6 mg IV push daily. Reevaluated today on 11/24/2021, patient remains in the ICU, intubated and mechanically ventilated sedated and paralyzed. Patient remains on assist control rate of 3 to tidal volume 380 FiO2 60% PEEP of 22 ABG showed a pO2 of 75 pCO2 79 pH of 7.28. Peak airway pressure noted to be in the high 30s and plateau pressures in the mid 30s. Lower the PEEP to 18, noted slight improvement in the peak airway pressure and improvement in the plateau pressures. FiO2 the same at 60%. Patient is on norepinephrine at 0.4 mcg/kg/m vasopressin at 0.03 units per minute Nimbex at 2 mcg/kg/m propofol at 55 mcg/kg/m also receiving vital AF at 46 mL per hour. Chest x-ray is basically about the same no change noted in ARDS. And in subcutaneous emphysema. WBC count is 17.1 hemoglobin 8.2. Electrolytes are basically normal BUN is 63 creatinine 0.65. Yesterday I discussed her condition with her over the phone, and he is very well aware of her poor prognosis, patient is to be considered for tumor weaning possibly by Saturday p.m. according to the . If no major changes or improvement noted in the next 24 hours, he will proceed with comfort care measures and terminal weaning. Objective - Vital Signs Vital signs: Vital Signs Temp 98.6 F 11/24/21 12:00 Pulse 81 11/24/21 12:00 Resp 32 H 11/24/21 12:00 BP 102/43 11/24/21 12:00 Pulse Ox 95 11/24/21 12:00 FiO2 60 11/24/21 12:00 Intake & Output 11/23/21 11/24/21 11/24/21 18:59 06:59 18:59 Intake Total 2508.090 2760.557 1067.159 Output Total 3245 1765 1880 Balance -736.910 995.557 -812.841 Weight 106.8 kg Intake: IV 470 110 100 Sodium Chloride 0.9 470 110 100 Intake, IV Titration 586.090 888.557 91.159 Amount Cefepime 2 gm In Sodium 25 200 Chloride 0.9% 100 ml @ 25 mls/hr IVPB Q8H DENISSE Rx#: [id number] Cisatracurium 200 mg In 200.000 Sodium Chloride 0.9% 180 ml @ 1 MCG/KG/MIN 5.184 mls/hr IV .Q24H DENISSE Rx#: [id number] Norepinephrine 32 mg In 82.89 388.557 91.159 Sodium Chloride 0.9% 218 ml @ 0.84 MCG/KG/MIN 34. 02 mls/hr IV .Q7H21M DENISSE Rx#:[id number] propofoL 1,000 mg In 278.200 300 Empty Bag 1 bag @ 5 MCG/ KG/MIN 2.592 mls/hr IV . Q24H DENISSE Rx#:[id number] Tube Feeding 552 552 276 Blood Product 0 310 Rc As-1 Unit 0 310 [id number] Other 900 900 600 Output: Urine 9668 4333 9420 Other: Voiding Method Indwelling Catheter Indwelling Catheter Indwelling Catheter ABP, PAP, CO, CI - Last Documented Arterial Blood Pressure 118/51 - Exam Physical Exam: Revealed a 60-year-old female, obese, sedated and paralyzed. Head: Atraumatic, normocephalic. Endotracheal tube and orogastric tube is intact. HEENT: Short obese neck. [Neck is supple.] [No neck masses.] [No thyromegaly.] [No JVD.] Chest: [Symmetrical chest expansion, crackles and rhonchi noted bilaterally. subcutaneous emphysema unchanged. Cardiac Exam: Distant S1 and S2, no S3 gallop, no murmur. Abdomen: Obese, [Soft, nontender, no megaly, no rebound, no guarding, normal bowel sounds.] Extremities: [No clubbing, no edema, no cyanosis.] Good pulses bilaterally. Neurological Exam: Unable to assess, because of sedation and paralysis Psychiatric: Could not be assessed. - Labs CBC & Chem 7: 11/24/21 04:27 11/24/21 04:27 Labs: Abnormal Lab Results - Last 24 Hours (Table) 11/19/21 11/23/21 11/23/21 Range/Units 06:58 13:24 15:54 WBC (3.8-10.6) k/uL RBC (3.80-5.40) m/uL Hgb (11.4-16.0) gm/dL Hct (34.0-46.0) % RDW (11.5-15.5) % Neutrophils # (Manual) (1.3-7.7) k/uL Lymphocytes # (Manual) (1.0-4.8) k/uL Metamyelocytes # (Man) (0) k/uL Myelocytes # (Manual) (0) k/uL Nucleated RBCs (0-0) /100 WBC ABG pH (7.35-7.45) ABG pCO2 (35-45) mmHg ABG pO2 (83-108) mmHg ABG HCO3 (21-25) mmol/L ABG Total CO2 (19-24) mmol/L Potassium (3.5-5.1) mmol/L Carbon Dioxide (22-30) mmol/L BUN (7-17) mg/dL Glucose (74-99) mg/dL POC Glucose (mg/dL) 230 H (70-110) mg/dL Calcium (8.4-10.2) mg/dL Total Protein (6.3-8.2) g/dL Albumin (3.5-5.0) g/dL Crossmatch See Detail See Detail 11/23/21 11/23/21 11/23/21 Range/Units 20:16 22:10 23:48 WBC 15.0 H (3.8-10.6) k/uL RBC 2.94 L (3.80-5.40) m/uL Hgb 8.3 L (11.4-16.0) gm/dL Hct 26.1 L (34.0-46.0) % RDW 17.6 H (11.5-15.5) % Neutrophils # (Manual) 13.90 H (1.3-7.7) k/uL Lymphocytes # (Manual) 0.60 L (1.0-4.8) k/uL Metamyelocytes # (Man) 0.60 H (0) k/uL Myelocytes # (Manual) 0.15 H (0) k/uL Nucleated RBCs 5 H (0-0) /100 WBC ABG pH (7.35-7.45) ABG pCO2 (35-45) mmHg ABG pO2 (83-108) mmHg ABG HCO3 (21-25) mmol/L ABG Total CO2 (19-24) mmol/L Potassium (3.5-5.1) mmol/L Carbon Dioxide (22-30) mmol/L BUN (7-17) mg/dL Glucose (74-99) mg/dL POC Glucose (mg/dL) 205 H 181 H (70-110) mg/dL Calcium (8.4-10.2) mg/dL Total Protein (6.3-8.2) g/dL Albumin (3.5-5.0) g/dL Crossmatch 11/24/21 11/24/21 11/24/21 Range/Units 04:25 04:27 04:27 WBC 17.1 H (3.8-10.6) k/uL RBC 2.89 L (3.80-5.40) m/uL Hgb 8.2 L (11.4-16.0) gm/dL Hct 25.5 L (34.0-46.0) % RDW 17.8 H (11.5-15.5) % Neutrophils # (Manual) 14.10 H (1.3-7.7) k/uL Lymphocytes # (Manual) (1.0-4.8) k/uL Metamyelocytes # (Man) 0.86 H (0) k/uL Myelocytes # (Manual) 0.86 H (0) k/uL Nucleated RBCs 2 H (0-0) /100 WBC ABG pH (7.35-7.45) ABG pCO2 (35-45) mmHg ABG pO2 (83-108) mmHg ABG HCO3 (21-25) mmol/L ABG Total CO2 (19-24) mmol/L Potassium 3.3 L (3.5-5.1) mmol/L Carbon Dioxide 38 H (22-30) mmol/L BUN 63 H (7-17) mg/dL Glucose 179 H (74-99) mg/dL POC Glucose (mg/dL) 187 H (70-110) mg/dL Calcium 8.3 L (8.4-10.2) mg/dL Total Protein 4.3 L (6.3-8.2) g/dL Albumin 2.3 L (3.5-5.0) g/dL Crossmatch 11/24/21 11/24/21 11/24/21 Range/Units 05:49 08:32 11:48 WBC (3.8-10.6) k/uL RBC (3.80-5.40) m/uL Hgb (11.4-16.0) gm/dL Hct (34.0-46.0) % RDW (11.5-15.5) % Neutrophils # (Manual) (1.3-7.7) k/uL Lymphocytes # (Manual) (1.0-4.8) k/uL Metamyelocytes # (Man) (0) k/uL Myelocytes # (Manual) (0) k/uL Nucleated RBCs (0-0) /100 WBC ABG pH 7.28 L (7.35-7.45) ABG pCO2 79 H* (35-45) mmHg ABG pO2 75 L (83-108) mmHg ABG HCO3 37 H (21-25) mmol/L ABG Total CO2 40 H (19-24) mmol/L Potassium (3.5-5.1) mmol/L Carbon Dioxide (22-30) mmol/L BUN (7-17) mg/dL Glucose (74-99) mg/dL POC Glucose (mg/dL) 194 H 212 H (70-110) mg/dL Calcium (8.4-10.2) mg/dL Total Protein (6.3-8.2) g/dL Albumin (3.5-5.0) g/dL Crossmatch Assessment and Plan Assessment: Impression: Acute hypoxic respiratory failure secondary to COVID-19 pneumonia and ARDS. Barotrauma with pneumomediastinum and subcutaneous emphysema, but no pneumothorax. Expected. Septic shock requiring pressors in the form of norepinephrine and vasopressin. Cardiopulmonary arrest 2 requiring CPR 2 Acute metabolic encephalopathy and possible anoxic brain injury Covid 19 infection 10/28/2021 Acute kidney injury, improving Benign essential hypertension, patient is now on pressors for profound hypotension Dyslipidemia Type 2 diabetes History of schizophrenia Hypothyroidism History of alcohol abuse History of marijuana use Chronic anemia Recommendation: Continue ventilatory support, PEEP is set at 18 and FiO2 remains at 60% otherwise the ventilator settings are unchanged. Continue enteral feeding/enteral support. Continue GI and DVT prophylaxis Continue to monitor electrolytes , metabolic profiles, ContDecadron. continue insulin subcu. Remains critically ill Prognosis is extremely poor. Discussed and updated her on her status yesterday over the phone, and the plan is to likely proceed with comfort care measures in the next 24 hours unless some major improvement takes place. Critical care time is over 30 minutes. Time with Patient: Greater than 30
[2021-11-24] MEDS ORDERED: POTASSIUM BICARBONATE/CIT AC 20 MEQ TABLET.EFF NG-TUBE SCH (14:00)
[2021-11-24 15:15] VITALS: BMI 34.7
[2021-11-24 16:38] LABS: Glucose,Whole Blood 200 mg/dL (70-110)
--- NOTE | 2021-11-24 18:02 | P.PN ---
Progress Note - Text Progress Note Date: 11/24/21 Chief Complaint: Decreased mentation History of presenting complaint: This is a 50-year-old patient, who follows with Dr. Saenz . Resident of [facility].. known history of bipolar disorder and schizophrenia. 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 Patient was here in May 2021. Severe hypernatremia, acute kidney injury metabolic encephalopathy. 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 Low-dose and high-dose dexamethasone test was put on telemetry specific. Does of Synthroid was increased. Patient now brought in from [facility]. Patient was diagnosed with COVID 19 a few days ago. Was on Paxil of it. Patient became increasingly lethargic. Patient is felt to secondary bacterial pneumonia. Given Levaquin and transferred here. Also noted. Significantly hypernatremic. Patient admitted to ICU. 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 This morning patient int ICU. On a Precedex drip. BiPAP. Lethargic. Not able to give any history. Admitted with COVID 19 pneumonitis, hypoxia, possibly secondary bacterial pneumonia, severe hyponatremia, severe metabolic encephalopathy, acute kidney injury. On IV Precedex. IV fluids. Levaquin. EEG. November 08: ICU: On BiPAP 12/5. IV Precedex. Lethargic. IV Levaquin. Oral bicarbonate. Medications through NG tube. EEG pending. November 09: ICU: On BiPAP 12/5. Off Precedex. Remains lethargic a bit restless. November 10: ICU: On BiPAP 12. Remains on Precedex. IV fluids. Sinus rhythm. Remains encephalopathic/delirious. 11/14/2021 Sonny Rubin feels better today, he does not feel dizziness while he is lying in bed all the time. He still have low appetite but no chest pain or dyspnea, no abdominal pain. He still complaining from pain in his legs and he has right leg DVT been on Lovenox with plan to switch him to heparin drip on today as he got midline Blood pressure is 87/56, heart rate 120, sodium is 121 On admission his sodium was still low and was started on D5 normal saline at 100 mL/h however after initial improvement sodium dropped to 121 yesterday so we held his IV fluid and the evening sodium improved 124 (no iv lasix given), however this morning is 121 again. We send urine studies and I'll consult ne phrologist. Also patient has negative CTPA for pulmonary embolism but CT of the abdomen and pelvis showing possible gallbladder fossa abscess or complex fluid collection although it is improved from previous 5 cm down to 2.7 centimeters. The recommended liver ultrasound versus MRI, ultrasound shows the same findings. Also surgery due on the case 11/15/2021 Last night his blood pressure dropped with systolic and 50s, there was a rapid response a team response and he was as stated with IV fluids aggressively, his blood pressure improved in 90s this morning and during the round he was awake an d alert looks tired but is appropriate. Sodium was 121 and then 119. He denied any chest pain or abdominal pain, no other complaints clinically. 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 After once by the evening time his blood pressure dropped again was 53/32 with altered mental status, there was another rapid response where patient was transferred to the ICU and levophed was started and his mentation started to improve again. Patient was started also on antibiotic empirically with Zosyn and IV vancomycin total infection ruled out completely as there is still high suspicion, with possible sources including the pressure wound sacral ulcer in the lower back, and less likely the gallbladder bed and fossa with 2.7 cm fluid collection (felt less likely because actually it decreased in size from 5.0 cm previously) After transfer patient and at bedside opted for the DO NOT RESUSCITATE order as per bedside nurse. 11/16/2021 Yesterday patient was still deteriorating, however today patient turned around and start improving patient remains in the ICU he needs to pressors we will fit and vasopressin, lactic acid trending up 6.4. Patient mentation is also deteriorated and become more confused and less responsive. His creatinine remains around 1 although he has low urine output. Patient is resuscitated with many fluids and also his broad-spectrum antibiotics with IV vancomycin and Zosyn, as septic shock is highly suspected is the cause of the patient profound hypotension and shock state. Although other factors might be contributing to it. Because of this we started the patient on hydrocortisone to increase the sensitivity of the adrenergic receptors to the catecholamine. Also replacing electrolytes including calcium and magnesium. Sodium slightly trending up. Patient remains in critical condition. Family at bedside 11/17/2021 Patient today workup and he was awake alert and oriented 3, he follows commands, he feels hungry and actually he started tolerating diet for the first time after several months. He denies any respiratory symptoms, his abdomen looks benign, no other new complaints. Blood pressure is improving and he required less pressors, currently blood pressure is 87/61, is less tachycardic around 110. He is currently on levophed 0.03 which is decreased from yesterday. Last night we added hydrocortisone 100 mg 3 times a day as a replacement therapy but to support blood pressure and increased sensitivity of levophed to its adrenergic receptors. Since blood pressure improvement with lower dose to 50 mg today, possibly we will discontinue it in one or 2 days once blood pressure keep improvement. Also patient receiving fluids. Labs looks stable, hemoglobin 9.8, sodium 126 he remains on Zosyn, vancomycin was discontinued. He remains on Zosyn. Anticoagulation is switched to Eliquis therapeutic dose at 10 mg which could be switched to 5 mg on 11/27. Prognosis remains guarded 11/18/2021 Patient is awake but drowsy, His blood pressure is improving but he still on pressors although is requiring less amount He has poor urine output but creatinine is around 1.1. His GFR is 66. He is going to receive 1 dose of Lasix 80 mg today. Also significant sodium bicarb and albumin infusion. He remains on Zosyn Anticoagulation with Eliquis Patient was seen and covered by [facility] from November 14 through November 18. 11/19/2021: I resumed care of patient today ICU: Ventilated intubated. FiO2 50 and a PEEP of 22. Telemetry sinus rhythm. Drips include norepinephrine, propofol, insulin, vasopressin. Nimbex was discontinued earlier today. Receiving a unit of blood. 2 feeding at 55 mL an hour. Bicarbonate infusion discontinued earlier. NG tube. 11/20/2021: ICU: On the ventilator. Intubated. FiO2 16 a PEEP of 22. Drips include vasopressin, levo fed, propofol, insulin. 2 feeding at 55 mL an hour. Telemetry shows sinus rhythm. His sed rate. Spoke to the sister at the bedside. Sedation holiday was tried. Patient became agitated. 11/21/2021: ICU: On the ventilator. Intubated. FiO2 55 and a PEEP of 22. This include vasopressin, norepinephrine, propofol. Telemetry shows sinus rhythm. NG tube in place. 2 feeding at 41 mL an hour. 11/22/2021: ICU: Ventilated a slight intubated. FiO2 16 a PEEP of 20. Patient is put on Nimbex drip yesterday. Other drips include vasopressin, levo fed, propofol. NG tube remains in place. Water was added. Sodium better. 2 feeding at 41 mL an hour. 11/23/2021: ICU: Ventilated/intubated. FiO2 of 60 and a PEEP of 22. Drips include vasopressin, norepinephrine, propofol, Nimbex. 2 feeding at 46 mL an hour. Sinus rhythm. Free water through NG tube. 11/24/2021: ICU: Ventilated slight intubated. FiO2 60 PEEP of 18. It's include vasopressin, Nimbex, before, norepinephrine. 2 feeding at 46 mL an hour. Sinus rhythm. Clear secretions through the ET tube. Active Medications Apixaban (Apixaban 5 Mg Tab) 5 mg PO BID [facility]; Protocol Last Admin: 11/24/21 08:36 Dose: 5 mg Artificial Tears (Artificial Tears-Hypromellose Drops 15 Ml Btl) 1 drops BOTH EYES Q4HR [facility] Last Admin: 11/24/21 16:59 Dose: 1 drops Aspirin (Aspirin 81 Mg) 81 mg PO DAILY@0900 [facility] Last Admin: 11/24/21 08:36 Dose: 81 mg Atorvastatin Calcium (Atorvastatin 40 Mg Tab) 40 mg PO HS@2100 [facility] Last Admin: 11/23/21 20:31 Dose: 40 mg Chlorhexidine Gluconate (Chlorhexidine Gluconate 15 Ml Cup) 15 ml MUCOUS MEM BID [facility] Last Admin: 11/24/21 08:36 Dose: 15 ml Clozapine (Clozapine 100 Mg Tab) 200 mg PO TID@0900,1300,2100 [facility] Stop: 11/29/21 10:21 Last Admin: 11/24/21 13:32 Dose: 200 mg Dexamethasone Sodium Phosphate (Dexamethasone Sod Phosphate 10 Mg/Ml 1 Ml Vial) 6 mg IVP DAILY [facility] Last Admin: 11/24/21 08:36 Dose: 6 mg Furosemide (Furosemide 10 Mg/Ml 4 Ml Vial) 40 mg IV DAILY [facility] Last Admin: 11/24/21 08:35 Dose: 40 mg Cisatracurium Besylate 200 mg/ (Sodium Chloride) 200 mls @ 5.184 mls/hr IV .Q24H [facility]; Protocol Last Titration: 11/24/21 17:46 Dose: Infused Propofol 1,000 mg/ IV Solution 100 mls @ 2.592 mls/hr IV .Q24H [facility]; Protocol Last Admin: 11/24/21 15:24 Dose: 55 mcg/kg/min, 28.512 mls/hr Vasopressin 20 unit/ Sodium (Chloride) 51 mls @ 4.59 mls/hr IVPB .Q11H7M [facility] Last Admin: 11/24/21 09:06 Dose: 4.59 mls/hr Norepinephrine Bitartrate 32 (mg/ Sodium Chloride) 250 mls @ 34.02 mls/hr IV .Q7H21M [facility]; Protocol Last Admin: 11/24/21 17:46 Dose: Not Given Sodium Chloride (Saline 0.9%) 500 mls @ 20 mls/hr IV .Q24H [facility] Last Admin: 11/24/21 12:08 Dose: 20 mls/hr Cefepime HCl 2 gm/ Sodium (Chloride) 100 mls @ 25 mls/hr IVPB Q8H [facility]; Protocol Last Admin: 11/24/21 12:05 Dose: 25 mls/hr Insulin Aspart (Insulin Aspart (Novolog) 100 Unit/Ml Vial) 0 unit SQ Q4HR [facility]; Protocol Last Admin: 11/24/21 17:00 Dose: 5 unit Insulin Detemir (Insulin Detemir (Levemir) 100 Unit/Ml Syr) 18 unit SQ JEFFREY Y@0700 [facility] Last Admin: 11/24/21 05:59 Dose: 18 unit Lamotrigine (Lamotrigine 25 Mg Tab) 25 mg PO BID@0900,2100 [facility] Last Admin: 11/24/21 08:37 Dose: 25 mg Levothyroxine Sodium (Levothyroxine 100 Mcg Tab) 100 mcg PO DAILY@0600 [facility] Last Admin: 11/24/21 05:59 Dose: 100 mcg Miscellaneous Information (Pneumonia Protocol Utilized 1 Each Misc) 1 each PO ONCE PRN PRN Reason: Per Protocol Miscellaneous Information (Potassium Replacement Protocol 1 Each Misc) 1 each MISCELLANE DAILY PRN; Protocol PRN Reason: Per Protocol Naloxone HCl (Naloxone 0.4 Mg/Ml 1 Ml Vial) 0.2 mg IV Q2M PRN PRN Reason: Opioid Reversal Pantoprazole Sodium (Pantoprazole 40 Mg/10 Ml Vial) 40 mg IV DAILY [facility] Last Admin: 11/24/21 08:36 Dose: 40 mg Thiamine HCl (Thiamine 100 Mg Tab) 100 mg PO DAILY [facility] Last Admin: 11/24/21 08:36 Dose: 100 mg Past medical history to include: Hypertension, hypothyroid, bipolar disorder, schizophrenia. excessive alcohol use in the past. No smoking. Psychosis, catatonic-like syndrome Social history: Heavy alcohol use in the past. . No smoking. Currently at [facility] Family history: Patient cannot tell Physical examination: VITAL SIGNS: 98.5, 86, 32, 96/50, 93% on the ventilator GENERAL: Intubated on the ventilator. Sedated EYES: Pupils equal. Conjunctiva normal. HEENT: External appearance of nose and ears normal, oral cavity dry. NG tube NECK: JVD unable to assess; masses not palpable. HEART: First and second heart sounds are normal; some edema. LUNGS: Respiratory rate increased; decreased breath sounds ABDOMEN: Soft, nontender, liver spleen not palpable, no masses palpable. PSYCH: Patient sedated, unable to assess MUSCULOSKELETAL:No Clubbing/cyanosis;muscles-grossly intact. NEUROLOGICAL: Pupils sluggish INVESTIGATIONS, reviewed in the clinical context: November 24: WBC 17.1 hemoglobin 8.2 potassium 3.3 creatinine 0.65 November 23: WBC 10.6 hemoglobin 7 platelets 208 potassium 3.4 BUN 63 creatinine 0.68 November 22: WBC 14.8 hemoglobin 7.4 potassium 3.9 creatinine 0.74 sodium 141. ABG: PH 7.31 pCO2 71 pO2 57 November 21: WBC 14.1 hemoglobin 7.3 platelets 187 sodium 146 bicarbonate 35 creatinine 0.94. ABG: PH 7.29 pCO2 70 pO2 88 November 20: WBC 14 hemoglobin 8.1 sodium 150 potassium 3.4 BUN 61 creatinine 1.09 bicarbonate 33. ABG: PO2 of 56 November 19: WBC is 16.3 hemoglobin 6.7 platelets 206 November 10: WBC 15.2 hemoglobin 11.2 sodium 150 progression 4. 36 creatinine 1.13 November 09: WBC 14.6 hemoglobin 11.4 2149 potassium 4.2 BUN 44 creatinine 1.27 November 08: WBC 12.7 hemoglobin 11.4 sodium 153 potassium 4.5 BUN 60 creatinine 1.55 cortisol November 07: White count 20.7 hemoglobin 12 platelets 345 sodium 162 potassium 4.2. 58 creatinine 2.13 ammonia less than 9 COVID 19: Detected November 06: White count 9.5 hemoglobin 12.6 platelets 321 sodium 157 potassium 4.3 chloride 124 BUN 50 creatinine 2.04 UA positive for leukoesterase, WBC Pro-calcitonin 1.11 Chest x-ray film personally reviewed by me-scattered infiltrate EKG tracing personally reviewed by me-sinus rhythm Previous labs: BUN 9 creatinine 0.95 on June 2021 Assessment and plan: -Severe hypernatremia, from free water deficit from decreased oral intake: Better Free fluid -ARDS, multifactorial: Not improving Requiring high PEEP. -COVID 19 with pneumonitis/hypoxia: Slow to respond Intubated Dexamethasone 6 mg -Possible secondary bacterial pneumonia : Slow to respond IV cefepime -Acute hypoxic respiratory failure from respiratory suppression multifactorial: Not improving Initially BiPAP 12/5. Currently intubated -Acute severe metabolic encephalopathy from renal failure and delirium: Slow to respond Treat underlying conditions. -Schizoaffective disorder, bipolar type. Psychosis: Clozaril 200 mg by mouth daily 3 times a day Lamictal 25 mg twice a day Ativan 1 mg IV every 4 when necessary -Bipolar disorder See above medications -Acute kidney injury, possibly prerenal/ ATN : Corrected Admission creatinine 2.04. Received fluids -Diabetes mellitus type 2, on oral hypoglycemic Follow Accu-Cheks. Levemir 10 units a day. -Hypothyroid, Synthroid 100g a day -Hyperlipidemia Lipitor 40 mg daily at bedtime TriCor 134 mg before supper -Chronic DVT both lower extremity diagnosed on October 19 2020 [place]. -Hypernatremia, from free water deficit: Corrected Free water through NG tube -No cord IV norepinephrine, propofol, insulin, vasopressin, Nimbex. Tube feeding at 46 mL an hour. Intubated . Increase Levemir to 22 units in the morning. Nurse informed me that Dr. Blanco spoke to the patient's . He may consider comfort measures depending upon clinical course.
[2021-11-24 20:21] LABS: Glucose,Whole Blood 150 mg/dL (70-110)
[2021-11-24] MEDS: ATORVASTATIN 40 MG TAB PO SCH (20:42)
[2021-11-25] MEDS: CISATRACURIUM 200 MG in SODIUM CHLORIDE 0.9% 180 ML IV SCH (00:09)
[2021-11-25 00:10] LABS: Glucose,Whole Blood 153 mg/dL (70-110)
[2021-11-25] MEDS: INSULIN ASPART (NovoLOG) 100 UNIT/ML VIAL SQ SCH ×4 (00:15→12:16)
[2021-11-25] MEDS: NOREPINEPHRINE 32 MG in SODIUM CHLORIDE 0.9% 218 ML IV SCH ×3 (00:16→16:05)
[2021-11-25] MEDS: SODIUM CHLORIDE 0.9% 50 ML with VASOPRESSIN 20 UNIT IVPB SCH ×4 (00:46→06:50)
[2021-11-25] MEDS: ARTIFICIAL TEARS-HYPROMELLOSE DROPS 15 ML BTL BOTH EYES SCH ×5 (00:47→17:38)
[2021-11-25 04:26] LABS: Glucose,Whole Blood 187 mg/dL (70-110)
[2021-11-25 04:55] LABS: ALT 14 U/L (4-34); AST 21 U/L (14-36); African American GFR (CKD) >90 (>60 ml/min/1.73 sqM); Albumin 2.2 g/dL (3.5-5.0); Alkaline Phosphatase 53 U/L (38-126); Anion Gap -1 mmol/L; Blood Urea Nitrogen 60 mg/dL (7-17); Calcium 8.4 mg/dL (8.4-10.2); Chloride 100 mmol/L (98-107); Glucose 168 mg/dL (74-99); Non-African American GFR(CKD) >90 (>60 ml/min/1.73 sqM); Potassium 3.2 mmol/L (3.5-5.1); Sodium 139 mmol/L (137-145); Total Bilirubin 0.3 mg/dL (0.2-1.3); Total Protein 4.1 g/dL (6.3-8.2)
[2021-11-25 05:02] LABS: Carbon Dioxide 40 mmol/L (22-30)
[2021-11-25 05:10] LABS: Anisocytosis Moderate; HCT 22.6 % (34.0-46.0); HGB 7.1 gm/dL (11.4-16.0); Hypochromasia Marked; MCH 28.1 pg (25.0-35.0); MCHC 31.4 g/dL (31.0-37.0); MCV 89.3 fL (80.0-100.0); Mean Platelet Volume 8.8; Platelet Count 215 k/uL (150-450); Poikilocytosis Slight; RBC 2.53 m/uL (3.80-5.40); RDW 20.1 % (11.5-15.5)
[2021-11-25] MEDS: LEVOTHYROXINE 100 MCG TAB PO SCH (05:12)
[2021-11-25] MEDS: CEFEPIME 2 GM in SODIUM CHLORIDE 0.9% 100 ML IVPB SCH ×2 (05:12→14:36)
[2021-11-25] MEDS: POTASSIUM BICARBONATE/CIT AC 20 MEQ TABLET.EFF NG-TUBE SCH ×2 (05:36→06:05)
[2021-11-25 05:38] LABS: Band Neutrophils % 19 %; Lymphocytes # (M) 1.33 k/uL (1.0-4.8); Metamyelocytes # (M) 1.92 k/uL (0); Metamyelocytes % 13 %; Myelocytes # (M) 0.59 k/uL (0); Myelocytes % 4 %; Neutrophils % (M) 53 %; Nucleated Red Blood Cells 4 /100 WBC (0-0); Total Cells Counted 200; WBC 14.8 k/uL (3.8-10.6)
[2021-11-25 05:39] LABS: Anisocytosis (M) Present; Basophilic Stippling Present; Poikilocytosis (M) Present; Polychromasia Present
[2021-11-25 05:56] LABS: ABG Base Excess 13.4 mmol/L; ABG HCO3 39 mmol/L (21-25); ABG Oxygen Saturation 94.3 % (94-97); ABG PH 7.34 (7.35-7.45); ABG PO2 67 mmHg (83-108); ABG TCO2 41 mmol/L (19-24); Allen Test Performed? Yes
[2021-11-25 05:59] LABS: ABG PCO2 72 mmHg (35-45)
--- NOTE | 2021-11-25 06:30 | XR ---
EXAMINATION TYPE: XR chest 1V portable DATE OF EXAM: 11/25/2021 CLINICAL HISTORY: COVID and ARDS. TECHNIQUE: Single AP portable supine view of the chest is obtained. COMPARISON: Chest x-ray from one day earlier and older studies. FINDINGS: Stable endotracheal tube and orogastric tube. Stable left-sided subclavian central venous catheter. Overlying subcutaneous emphysema is redemonstrated. Persistent bilateral multifocal and confluent opa cities. Persistent small to tiny right pleural effusion. Cardiac silhouette size stable and mildly en larged. No pneumothorax evident bilaterally. Osseous structures are intact. IMPRESSION: Mild cardiomegaly with small right pleural effusion and bilateral multifocal and confluen t opacities consistent with covid-19 infection and/or ARDS redemonstrated. Overlying subcutaneous emp hysema again seen. No significant change from one day earlier.
[2021-11-25] MEDS ORDERED: INSULIN DETEMIR (LEVEMIR) 100 UNIT/ML SYR SQ SCH (07:00)
[2021-11-25] MEDS ORDERED: POTASSIUM BICARBONATE/CIT AC 20 MEQ TABLET.EFF PO ONE (07:51)
[2021-11-25 07:53] LABS: Glucose,Whole Blood 231 mg/dL (70-110)
--- NOTE | 2021-11-25 08:34 | P.PN ---
Subjective Patient is seen in follow-up for acute kidney injury. Patient had a cardiac arrest this admission. She is currently intubated. She remains on Levophed and vasopressin. Renal function back to baseline. Receiving tube feeds. Sodium level stable. Receiving water flushes. On 60% FiO2 and high PEEP. Vital signs are stable. General: Resting in bed. On vasopressor support. HEENT: Intubated. LUNGS: Breath sounds decreased. HEART: Regular rate and rhythm. ABDOMEN: Soft, no distention. EXTREMITITES: 1+ edema. Objective - Vital Signs Vital signs: Vital Signs Temp 97.7 F 11/25/21 04:00 Pulse 79 11/25/21 07:00 Resp 32 H 11/25/21 07:00 BP 102/54 11/25/21 07:00 Pulse Ox 91 L 11/25/21 07:00 FiO2 60 11/25/21 07:20 Intake & Output 11/24/21 11/25/21 11/25/21 18:59 06:59 18:59 Intake Total 2280.356 2110.815 166 Output Total 2910 1500 120 Balance -629.644 610.815 46 Weight 106.8 kg 106.5 kg Intake: IV 220 220 20 Sodium Chloride 0.9 220 220 20 Intake, IV Titration 608.356 438.815 100 Amount Cefepime 2 gm In Sodium 100 100 Chloride 0.9% 100 ml @ 25 mls/hr IVPB Q8H [facility] Rx#: [id number] Cisatracurium 200 mg In 200 Sodium Chloride 0.9% 180 ml @ 1 MCG/KG/MIN 5.184 mls/hr IV .Q24H [facility] Rx#: [id number] Norepinephrine 32 mg In 133.482 238.815 Sodium Chloride 0.9% 218 ml @ 0.84 MCG/KG/MIN 34. 02 mls/hr IV .Q7H21M [facility] Rx#:[id number] propofoL 1,000 mg In 274.874 100 Empty Bag 1 bag @ 5 MCG/ KG/MIN 2.592 mls/hr IV . Q24H [facility] Rx#:[id number] Tube Feeding 552 552 46 Other 900 900 Output: Urine 2910 1500 120 Other: Voiding Method Indwelling Catheter Indwelling Catheter ABP, PAP, CO, CI - Last Documented Arterial Blood Pressure 110/49 - Labs CBC & Chem 7: 11/25/21 04:27 11/25/21 04:27 Labs: Abnormal Lab Results - Last 24 Hours (Table) 11/24/21 11/24/21 11/24/21 Range/Units 04:27 08:32 11:48 WBC 17.1 H (3.8-10.6) k/uL RBC (3.80-5.40) m/uL Hgb (11.4-16.0) gm/dL Hct (34.0-46.0) % RDW (11.5-15.5) % Neutrophils # (Manual) 14.10 H (1.3-7.7) k/uL Metamyelocytes # (Man) 0.86 H (0) k/uL Myelocytes # (Manual) 0.86 H (0) k/uL Nucleated RBCs 2 H (0-0) /100 WBC ABG pH (7.35-7.45) ABG pCO2 (35-45) mmHg ABG pO2 (83-108) mmHg ABG HCO3 (21-25) mmol/L ABG Total CO2 (19-24) mmol/L Potassium (3.5-5.1) mmol/L Carbon Dioxide (22-30) mmol/L BUN (7-17) mg/dL Glucose (74-99) mg/dL POC Glucose (mg/dL) 194 H 212 H (70-110) mg/dL Total Protein (6.3-8.2) g/dL Albumin (3.5-5.0) g/dL 11/24/21 11/24/21 11/25/21 Range/Units 16:37 20:19 00:08 WBC (3.8-10.6) k/uL RBC (3.80-5.40) m/uL Hgb (11.4-16.0) gm/dL Hct (34.0-46.0) % RDW (11.5-15.5) % Neutrophils # (Manual) (1.3-7.7) k/uL Metamyelocytes # (Man) (0) k/uL Myelocytes # (Manual) (0) k/uL Nucleated RBCs (0-0) /100 WBC ABG pH (7.35-7.45) ABG pCO2 (35-45) mmHg ABG pO2 (83-108) mmHg ABG HCO3 (21-25) mmol/L ABG Total CO2 (19-24) mmol/L Potassium (3.5-5.1) mmol/L Carbon Dioxide (22-30) mmol/L BUN (7-17) mg/dL Glucose (74-99) mg/dL POC Glucose (mg/dL) 200 H 150 H 153 H (70-110) mg/dL Total Protein (6.3-8.2) g/dL Albumin (3.5-5.0) g/dL 11/25/21 11/25/21 11/25/21 Range/Units 04:24 04:27 04:27 WBC 14.8 H (3.8-10.6) k/uL RBC 2.53 L (3.80-5.40) m/uL Hgb 7.1 L (11.4-16.0) gm/dL Hct 22.6 L (34.0-46.0) % RDW 20.1 H (11.5-15.5) % Neutrophils # (Manual) 10.60 H (1.3-7.7) k/uL Metamyelocytes # (Man) 1.92 H (0) k/uL Myelocytes # (Manual) 0.59 H (0) k/uL Nucleated RBCs 4 H (0-0) /100 WBC ABG pH (7.35-7.45) ABG pCO2 (35-45) mmHg ABG pO2 (83-108) mmHg ABG HCO3 (21-25) mmol/L ABG Total CO2 (19-24) mmol/L Potassium 3.2 L (3.5-5.1) mmol/L Carbon Dioxide 40 H (22-30) mmol/L BUN 60 H (7-17) mg/dL Glucose 168 H (74-99) mg/dL POC Glucose (mg/dL) 187 H (70-110) mg/dL Total Protein 4.1 L (6.3-8.2) g/dL Albumin 2.2 L (3.5-5.0) g/dL 11/25/21 11/25/21 Range/Units 05:52 07:51 WBC (3.8-10.6) k/uL RBC (3.80-5.40) m/uL Hgb (11.4-16.0) gm/dL Hct (34.0-46.0) % RDW (11.5-15.5) % Neutrophils # (Manual) (1.3-7.7) k/uL Metamyelocytes # (Man) (0) k/uL Myelocytes # (Manual) (0) k/uL Nucleated RBCs (0-0) /100 WBC ABG pH 7.34 L (7.35-7.45) ABG pCO2 72 H* (35-45) mmHg ABG pO2 67 L (83-108) mmHg ABG HCO3 39 H (21-25) mmol/L ABG Total CO2 41 H (19-24) mmol/L Potassium (3.5-5.1) mmol/L Carbon Dioxide (22-30) mmol/L BUN (7-17) mg/dL Glucose (74-99) mg/dL POC Glucose (mg/dL) 231 H (70-110) mg/dL Total Protein (6.3-8.2) g/dL Albumin (3.5-5.0) g/dL Assessment and Plan Plan: Assessment: 1. Acute kidney injury secondary to ATN secondary to cardiac arrest/shock. Resolved. Renal function resolved. Nonoliguric. No hydronephrosis noted on kidney ultrasound. 2. Hypernatremia from lack of oral water intake. Improved. 3. Acute hypercapnic respiratory failure. Improved. 4. Status post cardiac arrest this admission. 5. Recent coronavirus infection. 6. Acute blood loss anemia. No active bleeding. Status post blood transfusion this admission. Iron replete. Hemoglobin 7.1 today. 7. Hypokalemia from poor intake and diuresis. 8. Volume overload. Receiving IV Lasix. Plan: Maintain tube feeds. Maintain free water flushes at 300 mL every 4 hours. Wean FiO2 and vasopressors. Avoid nephrotoxins. Continue to monitor renal function and urine output. Cortisol level not low data 11/08/2021. Currently on dexamethasone. Potassium replaced. Maintain IV Lasix. Check magnesium level and replace per protocol. Comfort measures being considered.
[2021-11-25 09:08] LABS: Glucose,Whole Blood 206 mg/dL (70-110)
[2021-11-25] MEDS: APIXABAN 5 MG TAB PO SCH (09:19)
[2021-11-25] MEDS: THIAMINE 100 MG TAB PO SCH (09:19)
[2021-11-25] MEDS: ASPIRIN 81 MG PO SCH (09:19)
[2021-11-25] MEDS: DEXAMETHASONE SOD PHOSPHATE 10 MG/ML 1 ML VIAL IVP SCH (09:20)
[2021-11-25] MEDS: CHLORHEXIDINE GLUCONATE 15 ML CUP MUCOUS MEM SCH (09:20)
[2021-11-25] MEDS: PANTOPRAZOLE 40 MG/10 ML VIAL IV SCH (09:20)
[2021-11-25] MEDS: FUROSEMIDE 10 MG/ML 4 ML VIAL IV SCH (09:20)
[2021-11-25] MEDS: lamoTRIgine 25 MG TAB PO SCH (09:22)
[2021-11-25] MEDS: cloZAPine 100 MG TAB PO SCH ×2 (09:22→12:13)
--- NOTE | 2021-11-25 10:42 | P.PN ---
Subjective Progress Note Date: 11/25/21 Principal diagnosis: Acute hypoxic respiratory failure, COVID-19 pneumonia, ARDS 50-year-old female, who is brought in by the [place] emergency services. She apparently resides at [facility] in that area. She apparently has a history of schizophrenia, as well as a history of recent infection with coronavirus. The patient was brought in because of mental status changes, and also low saturations. Apparently the patient was evaluated there and thought to have pneumonia. The patient was treated with Levaquin here. Currently, she seen in the emergency room, room 11. She is on 15 L high flow oxygen. She's getting saline at 75 mL an hour. I did have the opportunity to speak to the patient's , name Art. He was able to provide some history . The patient is at the intermediate as mentioned above, but is unable to prepare food for herself. Her mental status varies hour to hour and day today according to him. The patient herself can give me no history. She sees been here in the emergency department, she's been moaning and groaning. Her chest x- ray shows bilateral patchy infiltrates. A blood gas was done and showed a pO2 of 89, pCO2 35, and pH is 7.332. She apparently has a history of diabetes, hypertension, hyperlipidemia, and hypothyroidism. White count 11.5, hemoglobin 12.6, hematocrit 41.3, with a normal platelet count. Sodium 157, potassium 4.3, chlorides 124, CO2 19, anion gap 14, BUN 50, creatinine 2.04. Her lactic acid was 1.2. Pro-calcitonin level is pending. Urine is yellow and cloudy. There is 1+ protein. Trace blood. Small positive leukocyte esterase, 7 RBCs, 9 WBCs, and many bacteria. Chest x-ray shows patchy bilateral infiltrates. 11/20/2021, the patient is being seen for a follow-up in the intensive care unit for COVID 19 related pneumonia/ARDS and respiratory complications related to COVID 19 infection.. The patient is on propofol which is running at 55 mcg/kg per minute. The patient is currently off Nimbex. The patient was taken off Nimbex yesterday and the patient remains quite synchronous and still on a mechanical ventilator. There has been no signs of any neurologic recovery at this point in time. The patient remains completely unresponsive. The patient underwent a CAT scan of the brain yesterday that showed no acute abnormalities. The patient remains on assist-control mode of mechanical ventilation and the patient is currently on assist-control at the rate of 32, tidal volume of 375, FiO2 is at 60% with a PEEP of 22. Peak airway pressure is 38. Chest x-ray showed diffuse bilateral pulmonary infiltrates along with that there is subcutaneous emphysema extensively in the anterior chest on the neck area. No major change in the x-ray findings. Blood gases from today shows a pH of 7.29 with a pCO2 of 69 and pO2 of 56. The patient's acidosis is improved as the patient was given bicarb infusion. The pH is improved. Pressor requirements have also improved and the patient is on levo fed 0.2 mics respiratory per minute and the patient is on a physiologic dose of vasopressin at 0.03 units an hour. The patient is developing significant amount of third spacing and on today's labs the patient is a component of hypo-or uremic hypernatremia. The patient was started on D5 water at the rate of 60 mL an hour and the patient is also receiving free water through the NG replaced the free water deficit. Input output balance over the past 24 hours is positive for 0.6 L. The patient's sodium is at 150 with a potassium level of 3.4 and a BUN of 61 and a creatinine of 1.08. The white cell count is at 40 with a hemoglobin of 8.1. The patient remains on vital high protein at the rate of 55 mL an hour. She is afebrile. Pressor requirements are less. DNR/DNI CODE STATUS. Remains on Decadron. Today on 11/21/2021, patient remains in the ICU, intubated and mechanically ventilated. She is sedated, on propofol, off Nimbex, however patient needs to go back on Nimbex. Patient is on assist control rate of 3 to tidal volume 375 FiO2 60% and PEEP of 22. And after reviewing her ABG which showed a pO2 of 88 pCO2 70 pH of 7.29, I decreased her FiO2 to 55%. I have also increased her propofol to 75 mcg/kg/m, and I restarted the patient on Nimbex. CODE STATUS was changed to DO NOT RESUSCITATE CODE STATUS, and today I had a long discussion with family members and they seem to be inclined to consider possibly comfort care measures. Patient remains on norepinephrine at 0.25 mcg/kg/m vasopressin at 0.03 units per minute propofol presently at 55 mcg/kg/m insulin at 3 units per hour patient is on enteral feeding. She is on cefepime, eliquis, Lasix 40 mg IV push daily, and Decadron 6 mg IV push daily. Patient was intubated on 11/15, and since then she had cardiac arrest 2. Patient obviously sustained some severe metabolic encephalopathy and CT of the brain is basically nondiagnostic. Being followed by neurology on consultation. Chest x-ray today continues to show ARDS, and subcutaneous emphysema. WBC count is 14.1 hemoglobin 7.3 basic metabolic profile is normal BUN is 61 creatinine 0.94, last pro-calcitonin was 0.10. MedicationsShe is on eliquis, atorvastatin, cefepime, Peridex, Nimbex was restarted, she is also on clozapine, Decadron 6 mg IV push daily, Lasix 40 mg IV push daily Lamictal 25 mg twice a day Protonix 40 mg IV push daily, she is also on propofol, thiamine, norepinephrine and vasopressin Patient was reevaluated today on 11/22/2021, patient remains in the ICU, intubated and mechanically ventilated. She is on assist control rate of 3 to tidal volume 375 FiO2 55% and PEEP of 22. ABG showed a pO2 of 67 pCO2 71 pH of 7.31 hence I increased the FiO2 up to 60% and the PEEP went down to 20. Patient remains on multiple drips including Nimbex at 20 mcg/kg/min, propofol at 55 mcg/kg/m norepinephrine at 0.4 mcg/kg/m vasopressin at 0.03 units per minute and she is on IV fluid 0.9 normal saline at KVO. Patient is also on enteral feeding receiving vital AF at 41 mL per hour. She is also getting free water 400 mL every 4 hours. Her peak airway pressure today is 42+ to pressure is 40 consistent with severe ARDS. Chest x-ray continues to show bilateral interstitial infiltrates and significant subcutaneous emphysema. Overall not much of a change noted over the last 24 hours. Patient is practically above the same. She remains critically ill and she has severe poor prognosis. Patient was made DO NOT RESUSCITATE per family and based on my discussion with the family yesterday, apparently the is not yet ready to consider comfort care measures. He is very well aware of the poor prognosis. Labs today showed WBC count of 14.8 hemoglobin 7.4. Basic metabolic profile is normal BUN is 64 creatinine 0.74. ABG as noted above Patient was reevaluated today on 11/23/2021, patient remains in the ICU, intubated and mechanically ventilated. Not much of a change has been noted over the last few days. Remains critically ill, remains on assist control rate of 32 tidal volume of 375 FiO2 was increased last night to 70% and the PEEP is 20. Today I went ahead and increased the PEEP up to 22 and cut down the FiO2 to 65%. Patient remains on norepinephrine at 0.41 mcg/kg/m, vasopressin at 0.03 units per minutes. Propofol at 55 Nimbex at 2 mcg/kg/m. ABG on 60% showed a pO2 of 63 pCO2 of 73 pH of 7.30. CODE STATUS remains DO NOT RESUSCITATE, family is still undecided about comfort care measures although the prognosis seems to be extremely poor on this patient. Patient remains on vital AF for nutritional support at 46 mL per hour. She is also receiving free water 300 mL every 6 hours. Chest x-ray is basically about the same continues to show bilateral infiltrates, consistent with ARDS, and subcutaneous emphysema. No evidence of pneumothorax. WBC count is 18.6 hemoglobin is 7 hematocrit is 22.4. Patient has leukocytosis with bandemia and her PMNs of 19%. Urine cultures and blood cultures and sputum cultures have been negative. Basic metabolic profile is basically normal and unchanged BUN remains elevated at 63 creatinine is normal at 0.68. Antibiotics wilson, the patient remains on cefepime, she is also on insulin subcu. Remains on Decadron 6 mg IV push daily. Reevaluated today on 11/24/2021, patient remains in the ICU, intubated and mechanically ventilated sedated and paralyzed. Patient remains on assist control rate of 3 to tidal volume 380 FiO2 60% PEEP of 22 ABG showed a pO2 of 75 pCO2 79 pH of 7.28. Peak airway pressure noted to be in the high 30s and plateau pressures in the mid 30s. Lower the PEEP to 18, noted slight improvement in the peak airway pressure and improvement in the plateau pressures. FiO2 the same at 60%. Patient is on norepinephrine at 0.4 mcg/kg/m vasopressin at 0.03 units per minute Nimbex at 2 mcg/kg/m propofol at 55 mcg/kg/m also receiving vital AF at 46 mL per hour. Chest x-ray is basically about the same no change noted in ARDS. And in subcutaneous emphysema. WBC count is 17.1 hemoglobin 8.2. Electrolytes are basically normal BUN is 63 creatinine 0.65. Yesterday I discussed her condition with her over the phone, and he is very well aware of her poor prognosis, patient is to be considered for tumor weaning possibly by Saturday p.m. according to the . If no major changes or improvement noted in the next 24 hours, he will proceed with comfort care measures and terminal weaning. Reevaluated today on 12/05/2021, patient remains in the ICU, intubated and mechanically ventilated. Patient is on assist control rate of 32 tidal volume to 75 FiO2 remains at 60% PEEP is down to 18. ABG remains marginal with a pO2 of 67 pCO2 72 pH of 7.34. Patient remains on Nimbex at 2 mcg/kg/m, propofol at 55 mcg/kg/m, a suppressant at 0.03 and norepinephrine at 0.4 mcg/kg per minute. Chest x-ray is basically about the same continues to show ARDS and subcutaneous emphysema. No evidence of pneumothorax. Patient remains on tube feeding. She is receiving vitamin AF at 46 mL/h. And continues to have free water flushes 300 mL every 4 hours. Platelets are normal. WBC count 14.8 hemoglobin is 7.1. Renal profile remains about the same with a BUN of 60 creatinine 0.73 potassium is 3.2. Objective - Vital Signs Vital signs: Vital Signs Temp 98.6 F 11/25/21 08:00 Pulse 84 11/25/21 10:00 Resp 32 H 11/25/21 10:00 BP 107/57 11/25/21 10:00 Pulse Ox 93 L 11/25/21 10:00 FiO2 60 11/25/21 07:20 Intake & Output 11/24/21 11/25/21 11/25/21 18:59 06:59 18:59 Intake Total 2280.356 2110.815 324.587 Output Total 2910 1500 120 Balance -629.644 610.815 204.587 Weight 106.8 kg 106.5 kg Intake: IV 220 220 20 Sodium Chloride 0.9 220 220 20 Intake, IV Titration 608.356 438.815 258.587 Amount Cefepime 2 gm In Sodium 100 100 Chloride 0.9% 100 ml @ 25 mls/hr IVPB Q8H DENISSE Rx#: [id number] Cisatracurium 200 mg In 200 158.587 Sodium Chloride 0.9% 180 ml @ 1 MCG/KG/MIN 5.184 mls/hr IV .Q24H DENISSE Rx#: [id number] Norepinephrine 32 mg In 133.482 238.815 Sodium Chloride 0.9% 218 ml @ 0.84 MCG/KG/MIN 34. 02 mls/hr IV .Q7H21M DENISSE Rx#:[id number] propofoL 1,000 mg In 274.874 100 Empty Bag 1 bag @ 5 MCG/ KG/MIN 2.592 mls/hr IV . Q24H DENISSE Rx#:[id number] Tube Feeding 552 552 46 Other 900 900 Output: Urine 2910 1500 120 Other: Voiding Method Indwelling Catheter Indwelling Catheter ABP, PAP, CO, CI - Last Documented Arterial Blood Pressure 123/55 - Exam Physical Exam: Revealed a 60-year-old female, obese, sedated and paralyzed. Head: Atraumatic, normocephalic. Endotracheal tube and orogastric tube is intact. HEENT: Short obese neck. [Neck is supple.] [No neck masses.] [No thyromegaly.] [No JVD.] Chest: [Symmetrical chest expansion, crackles and rhonchi noted bilaterally. subcutaneous emphysema unchanged. Cardiac Exam: Distant S1 and S2, no S3 gallop, no murmur. Abdomen: Obese, [Soft, nontender, no megaly, no rebound, no guarding, normal bowel sounds.] Extremities: [No clubbing, no edema, no cyanosis.] Good pulses bilaterally. Neurological Exam: Unable to assess, because of sedation and paralysis Psychiatric: Could not be assessed. - Labs CBC & Chem 7: 11/25/21 04:27 11/25/21 04:27 Labs: Abnormal Lab Results - Last 24 Hours (Table) 11/24/21 11/24/21 11/24/21 Range/Units 11:48 16:37 20:19 WBC (3.8-10.6) k/uL RBC (3.80-5.40) m/uL Hgb (11.4-16.0) gm/dL Hct (34.0-46.0) % RDW (11.5-15.5) % Neutrophils # (Manual) (1.3-7.7) k/uL Metamyelocytes # (Man) (0) k/uL Myelocytes # (Manual) (0) k/uL Nucleated RBCs (0-0) /100 WBC ABG pH (7.35-7.45) ABG pCO2 (35-45) mmHg ABG pO2 (83-108) mmHg ABG HCO3 (21-25) mmol/L ABG Total CO2 (19-24) mmol/L Potassium (3.5-5.1) mmol/L Carbon Dioxide (22-30) mmol/L BUN (7-17) mg/dL Glucose (74-99) mg/dL POC Glucose (mg/dL) 212 H 200 H 150 H (70-110) mg/dL Total Protein (6.3-8.2) g/dL Albumin (3.5-5.0) g/dL 11/25/21 11/25/21 11/25/21 Range/Units 00:08 04:24 04:27 WBC 14.8 H (3.8-10.6) k/uL RBC 2.53 L (3.80-5.40) m/uL Hgb 7.1 L (11.4-16.0) gm/dL Hct 22.6 L (34.0-46.0) % RDW 20.1 H (11.5-15.5) % Neutrophils # (Manual) 10.60 H (1.3-7.7) k/uL Metamyelocytes # (Man) 1.92 H (0) k/uL Myelocytes # (Manual) 0.59 H (0) k/uL Nucleated RBCs 4 H (0-0) /100 WBC ABG pH (7.35-7.45) ABG pCO2 (35-45) mmHg ABG pO2 (83-108) mmHg ABG HCO3 (21-25) mmol/L ABG Total CO2 (19-24) mmol/L Potassium (3.5-5.1) mmol/L Carbon Dioxide (22-30) mmol/L BUN (7-17) mg/dL Glucose (74-99) mg/dL POC Glucose (mg/dL) 153 H 187 H (70-110) mg/dL Total Protein (6.3-8.2) g/dL Albumin (3.5-5.0) g/dL 11/25/21 11/25/21 11/25/21 Range/Units 04:27 05:52 07:51 WBC (3.8-10.6) k/uL RBC (3.80-5.40) m/uL Hgb (11.4-16.0) gm/dL Hct (34.0-46.0) % RDW (11.5-15.5) % Neutrophils # (Manual) (1.3-7.7) k/uL Metamyelocytes # (Man) (0) k/uL Myelocytes # (Manual) (0) k/uL Nucleated RBCs (0-0) /100 WBC ABG pH 7.34 L (7.35-7.45) ABG pCO2 72 H* (35-45) mmHg ABG pO2 67 L (83-108) mmHg ABG HCO3 39 H (21-25) mmol/L ABG Total CO2 41 H (19-24) mmol/L Potassium 3.2 L (3.5-5.1) mmol/L Carbon Dioxide 40 H (22-30) mmol/L BUN 60 H (7-17) mg/dL Glucose 168 H (74-99) mg/dL POC Glucose (mg/dL) 231 H (70-110) mg/dL Total Protein 4.1 L (6.3-8.2) g/dL Albumin 2.2 L (3.5-5.0) g/dL 11/25/21 Range/Units 09:05 WBC (3.8-10.6) k/uL RBC (3.80-5.40) m/uL Hgb (11.4-16.0) gm/dL Hct (34.0-46.0) % RDW (11.5-15.5) % Neutrophils # (Manual) (1.3-7.7) k/uL Metamyelocytes # (Man) (0) k/uL Myelocytes # (Manual) (0) k/uL Nucleated RBCs (0-0) /100 WBC ABG pH (7.35-7.45) ABG pCO2 (35-45) mmHg ABG pO2 (83-108) mmHg ABG HCO3 (21-25) mmol/L ABG Total CO2 (19-24) mmol/L Potassium (3.5-5.1) mmol/L Carbon Dioxide (22-30) mmol/L BUN (7-17) mg/dL Glucose (74-99) mg/dL POC Glucose (mg/dL) 206 H (70-110) mg/dL Total Protein (6.3-8.2) g/dL Albumin (3.5-5.0) g/dL Assessment and Plan Assessment: Impression: Acute hypoxic respiratory failure secondary to COVID-19 pneumonia and ARDS. Barotrauma with pneumomediastinum and subcutaneous emphysema, but no pneumothorax. Expected. Septic shock requiring pressors in the form of norepinephrine and vasopressin. Cardiopulmonary arrest 2 requiring CPR 2 Acute metabolic encephalopathy and possible anoxic brain injury Covid 19 infection 10/28/2021 Acute kidney injury, resolved. Benign essential hypertension, patient is now on pressors for profound hypotension, remains on vasopressin and norepinephrine Dyslipidemia Type 2 diabetes History of schizophrenia Hypothyroidism History of alcohol abuse History of marijuana use Chronic anemia Recommendation: Continue ventilatory support, ABG is marginal chest x-ray is about the same, no major change PEEP is 18, no changes made in the vent settings today. Continue enteral feeding/enteral support. Continue GI and DVT prophylaxis Continue to monitor electrolytes , metabolic profiles, Continue Decadron. continue insulin subcu. Remains critically ill Prognosis is extremely poor. Will discontinue vasopressin today, continue norepinephrine Will discontinue Nimbex today Anticipate comfort care measures later this afternoon if the agrees. Critical care time is over 30 minutes.\ Time with Patient: Greater than 30
[2021-11-25] MEDS ORDERED: ATROPINE OPHTH SOLN 1% 5ML BTL SUBLINGUAL PRN (11:59)
[2021-11-25] MEDS ORDERED: MORPHINE SULFATE 4 MG/ML SYRINGE IV PRN (11:59)
[2021-11-25] MEDS ORDERED: SCOPOLAMINE 1 MG/72 HR PATCH TRANSDERM SCH (12:00)
[2021-11-25] MEDS ORDERED: MORPHINE SULFATE (100 MG/2 ML) 100 MG in SODIUM CHLORIDE 0.9% 100 ML IV SCH (12:00)
[2021-11-25 12:12] LABS: Glucose,Whole Blood 210 mg/dL (70-110)
[2021-11-25 12:26] VITALS: TEMP 98.7
[2021-11-25 14:23] VITALS: PULSE 85
[2021-11-25] MEDS: SODIUM CHLORIDE 0.9% 500 ML 500 ML IV SCH (14:36)
--- NOTE | 2021-11-25 15:06 | P.PN ---
Progress Note - Text Progress Note Date: 11/25/21 Chief Complaint: Decreased mentation History of presenting complaint: This is a 50-year-old patient, who follows with Dr. Saenz . Resident of [facility].. known history of bipolar disorder and schizophrenia. 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 Patient was here in May 2021. Severe hypernatremia, acute kidney injury metabolic encephalopathy. 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 Low-dose and high-dose dexamethasone test was put on telemetry specific. Does of Synthroid was increased. Patient now brought in from [facility]. Patient was diagnosed with COVID 19 a few days ago. Was on Paxil of it. Patient became increasingly lethargic. Patient is felt to secondary bacterial pneumonia. Given Levaquin and transferred here. Also noted. Significantly hypernatremic. Patient admitted to ICU. Consultation is made to quotation clerk, nephrology, psychiatry, neurology. This morning patient int ICU. On a Precedex drip. BiPAP. Lethargic. Not able to give any history. Admitted with COVID 19 pneumonitis, hypoxia, possibly secondary bacterial pneumonia, severe hyponatremia, severe metabolic encephalopathy, acute kidney injury. On IV Precedex. IV fluids. Levaquin. EEG. November 08: ICU: On BiPAP 12/5. IV Precedex. Lethargic. IV Levaquin. Oral bicarbonate. Medications through NG tube. EEG pending. November 09: ICU: On BiPAP 12/5. Off Precedex. Remains lethargic a bit restless. November 10: ICU: On BiPAP 12. Remains on Precedex. IV fluids. Sinus rhythm. Remains encephalopathic/delirious. 11/14/2021 Sonny Rubin feels better today, he does not feel dizziness while he is lying in bed all the time. He still have low appetite but no chest pain or dyspnea, no abdominal pain. He still complaining from pain in his legs and he has right leg DVT been on Lovenox with plan to switch him to heparin drip on today as he got midline Blood pressure is 87/56, heart rate 120, sodium is 121 On admission his sodium was still low and was started on D5 normal saline at 100 mL/h however after initial improvement sodium dropped to 121 yesterday so we held his IV fluid and the evening sodium improved 124 (no iv lasix given), however this morning is 121 again. We send urine studies and I'll consult ne phrologist. Also patient has negative CTPA for pulmonary embolism but CT of the abdomen and pelvis showing possible gallbladder fossa abscess or complex fluid collection although it is improved from previous 5 cm down to 2.7 centimeters. The recommended liver ultrasound versus MRI, ultrasound shows the same findings. Also surgery due on the case 11/15/2021 Last night his blood pressure dropped with systolic and 50s, there was a rapid response a team response and he was as stated with IV fluids aggressively, his blood pressure improved in 90s this morning and during the round he was awake an d alert looks tired but is appropriate. Sodium was 121 and then 119. He denied any chest pain or abdominal pain, no other complaints clinically. His losing from his puncture wound in the right lower abdomen was a stopped, he was started on heparin drip per recommendation of roll changer. After once by the evening time his blood pressure dropped again was 53/32 with altered mental status, there was another rapid response where patient was transferred to the ICU and levophed was started and his mentation started to improve again. Patient was started also on antibiotic empirically with Zosyn and IV vancomycin total infection ruled out completely as there is still high suspicion, with possible sources including the pressure wound sacral ulcer in the lower back, and less likely the gallbladder bed and fossa with 2.7 cm fluid collection (felt less likely because actually it decreased in size from 5.0 cm previously) After transfer patient and at bedside opted for the DO NOT RESUSCITATE order as per bedside nurse. 11/16/2021 Yesterday patient was still deteriorating, however today patient turned around and start improving patient remains in the ICU he needs to pressors we will fit and vasopressin, lactic acid trending up 6.4. Patient mentation is also deteriorated and become more confused and less responsive. His creatinine remains around 1 although he has low urine output. Patient is resuscitated with many fluids and also his broad-spectrum antibiotics with IV vancomycin and Zosyn, as septic shock is highly suspected is the cause of the patient profound hypotension and shock state. Although other factors might be contributing to it. Because of this we started the patient on hydrocortisone to increase the sensitivity of the adrenergic receptors to the catecholamine. Also replacing electrolytes including calcium and magnesium. Sodium slightly trending up. Patient remains in critical condition. Family at bedside 11/17/2021 Patient today workup and he was awake alert and oriented 3, he follows commands, he feels hungry and actually he started tolerating diet for the first time after several months. He denies any respiratory symptoms, his abdomen looks benign, no other new complaints. Blood pressure is improving and he required less pressors, currently blood pressure is 87/61, is less tachycardic around 110. He is currently on levophed 0.03 which is decreased from yesterday. Last night we added hydrocortisone 100 mg 3 times a day as a replacement therapy but to support blood pressure and increased sensitivity of levophed to its adrenergic receptors. Since blood pressure improvement with lower dose to 50 mg today, possibly we will discontinue it in one or 2 days once blood pressure keep improvement. Also patient receiving fluids. Labs looks stable, hemoglobin 9.8, sodium 126 he remains on Zosyn, vancomycin was discontinued. He remains on Zosyn. Anticoagulation is switched to Eliquis therapeutic dose at 10 mg which could be switched to 5 mg on 11/27. Prognosis remains guarded 11/18/2021 Patient is awake but drowsy, His blood pressure is improving but he still on pressors although is requiring less amount He has poor urine output but creatinine is around 1.1. His GFR is 66. He is going to receive 1 dose of Lasix 80 mg today. Also significant sodium bicarb and albumin infusion. He remains on Zosyn Anticoagulation with Eliquis [facility] 11/19/2021: I resumed care of patient today ICU: Ventilated intubated. FiO2 50 and a PEEP of 22. Telemetry sinus rhythm. Drips include norepinephrine, propofol, insulin, vasopressin. Nimbex was discontinued earlier today. Receiving a unit of blood. 2 feeding at 55 mL an hour. Bicarbonate infusion discontinued earlier. NG tube. 11/20/2021: ICU: On the ventilator. Intubated. FiO2 16 a PEEP of 22. Drips include vasopressin, levo fed, propofol, insulin. 2 feeding at 55 mL an hour. Telemetry shows sinus rhythm. His sed rate. Spoke to the sister at the bedside. Sedation holiday was tried. Patient became agitated. 11/21/2021: ICU: On the ventilator. Intubated. FiO2 55 and a PEEP of 22. This include vasopressin, norepinephrine, propofol. Telemetry shows sinus rhythm. NG tube in place. 2 feeding at 41 mL an hour. 11/22/2021: ICU: Ventilated a slight intubated. FiO2 16 a PEEP of 20. Patient is put on Nimbex drip yesterday. Other drips include vasopressin, levo fed, propofol. NG tube remains in place. Water was added. Sodium better. 2 feeding at 41 mL an hour. 11/23/2021: ICU: Ventilated/intubated. FiO2 of 60 and a PEEP of 22. Drips include vasopressin, norepinephrine, propofol, Nimbex. 2 feeding at 46 mL an hour. Sinus rhythm. Free water through NG tube. 11/24/2021: ICU: Ventilated slight intubated. FiO2 60 PEEP of 18. It's include vasopressin, Nimbex, before, norepinephrine. 2 feeding at 46 mL an hour. Sinus rhythm. Clear secretions through the ET tube. 11/25/2021: ICU: Ventilated/intubated. FiO2 16 PEEP of 18. Patient has been taken off Nimbex and vasopressin drip. On norepinephrine. Sinus rhythm. has decided to proceed with comfort measures with terminal extubation later today. Active Medications Apixaban (Apixaban 5 Mg Tab) 5 mg PO BID [facility]; Protocol Last Admin: 11/25/21 09:19 Dose: 5 mg Artificial Tears (Artificial Tears-Hypromellose Drops 15 Ml Btl) 1 drops BOTH EYES Q4HR [facility] Last Admin: 11/25/21 12:18 Dose: 1 drops Aspirin (Aspirin 81 Mg) 81 mg PO DAILY@0900 [facility] Last Admin: 11/25/21 09:19 Dose: 81 mg Atorvastatin Calcium (Atorvastatin 40 Mg Tab) 40 mg PO HS@2100 [facility] Last Admin: 11/24/21 20:42 Dose: 40 mg Atropine Sulfate (Atropine Ophth Soln 1% 5ml Btl) 2 drops SUBLINGUAL Q4HR PRN PRN Reason: Excess Secretions Chlorhexidine Gluconate (Chlorhexidine Gluconate 15 Ml Cup) 15 ml MUCOUS MEM BID [facility] Last Admin: 11/25/21 09:20 Dose: 15 ml Clozapine (Clozapine 100 Mg Tab) 200 mg PO TID@0900,1300,2100 [facility] Stop: 11/29/21 10:21 Last Admin: 11/25/21 12:13 Dose: Not Given Dexamethasone Sodium Phosphate (Dexamethasone Sod Phosphate 10 Mg/Ml 1 Ml Vial) 6 mg IVP DAILY [facility] Last Admin: 11/25/21 09:20 Dose: 6 mg Furosemide (Furosemide 10 Mg/Ml 4 Ml Vial) 40 mg IV DAILY [facility] Last Admin: 11/25/21 09:20 Dose: 40 mg Propofol 1,000 mg/ IV Solution 100 mls @ 2.592 mls/hr IV .Q24H [facility]; Protocol Last Admin: 11/25/21 05:08 Dose: 55 mcg/kg/min, 28.512 mls/hr Vasopressin 20 unit/ Sodium (Chloride) 51 mls @ 4.59 mls/hr IVPB .Q11H7M [facility] Last Admin: 11/25/21 06:50 Dose: 4.59 mls/hr Norepinephrine Bitartrate 32 (mg/ Sodium Chloride) 250 mls @ 34.02 mls/hr IV .Q7H21M [facility]; Protocol Last Titration: 11/25/21 13:20 Dose: 0.32 mcg/kg/min, 12.96 mls/hr Sodium Chloride (Saline 0.9%) 500 mls @ 20 mls/hr IV .Q24H [facility] Last Admin: 11/25/21 14:36 Dose: Not Given Cefepime HCl 2 gm/ Sodium (Chloride) 100 mls @ 25 mls/hr IVPB Q8H [facility]; Protocol Last Admin: 11/25/21 14:36 Dose: Not Given Morphine Sulfate 100 mg/ (Sodium Chloride) 102 mls @ 1.02 mls/hr IV .Q24H [facility]; Protocol Insulin Aspart (Insulin Aspart (Novolog) 100 Unit/Ml Vial) 0 unit SQ Q4HR [facility]; Protocol Last Admin: 11/25/21 12:16 Dose: 6 unit Insulin Detemir (Insulin Detemir (Levemir) 100 Unit/Ml Syr) 22 unit SQ DAILY@0700 [facility] Last Admin: 11/25/21 06:07 Dose: 22 unit Lamotrigine (Lamotrigine 25 Mg Tab) 25 mg PO BID@0900,2100 [facility] Last Admin: 11/25/21 09:22 Dose: 25 mg Levothyroxine Sodium (Levothyroxine 100 Mcg Tab) 100 mcg PO DAILY@0600 [facility] Last Admin: 11/25/21 05:12 Dose: 100 mcg Miscellaneous Information (Pneumonia Protocol Utilized 1 [place] [facility] [place] 1 each PO ONCE PRN PRN Reason: Per Protocol Miscellaneous Information (Potassium Replacement Protocol 1 Each [facility] [place] 1 each MISCELLANE DAILY PRN; Protocol PRN Reason: Per Protocol Morphine Sulfate (Morphine Sulfate 4 Mg/Ml Syringe) 4 mg IV Q15M PRN PRN Reason: Breakthrough Pain Naloxone HCl (Naloxone 0.4 Mg/Ml 1 Ml Vial) 0.2 mg IV Q2M PRN PRN Reason: Opioid Reversal Pantoprazole Sodium (Pantoprazole 40 Mg/10 Ml Vial) 40 mg IV DAILY [facility] Last Admin: 11/25/21 09:20 Dose: 40 mg Scopolamine (Scopolamine 1 Mg/72 Hr Patch) 1 patch TRANSDERM Q72H [facility] Thiamine HCl (Thiamine 100 Mg Tab) 100 mg PO DAILY [facility] Last Admin: 11/25/21 09:19 Dose: 100 mg Past medical history to include: Hypertension, hypothyroid, bipolar disorder, schizophrenia. excessive alcohol use in the past. No smoking. Psychosis, catatonic-like syndrome Social history: Heavy alcohol use in the past. . No smoking. Currently at [facility] Family history: Patient cannot tell Physical examination: VITAL SIGNS: 98.7, 84, 36, 104/48, 91% on the ventilator GENERAL: Intubated on the ventilator. Sedated EYES: Pupils equal. Conjunctiva normal. HEENT: External appearance of nose and ears normal, oral cavity dry. NG tube NECK: JVD unable to assess; masses not palpable. HEART: First and second heart sounds are normal; some edema. LUNGS: Respiratory rate increased; decreased breath sounds ABDOMEN: Soft, nontender, liver spleen not palpable, no masses palpable. PSYCH: Patient sedated, unable to assess MUSCULOSKELETAL:No Clubbing/cyanosis;muscles-grossly intact. NEUROLOGICAL: Pupils sluggish INVESTIGATIONS, reviewed in the clinical context: November 25: WBC 14.8 hemoglobin 7.1 platelets 215 ABG: PH 7.3 pCO2 72 pO2 67 potassium 3.2 creatinine 0.73 November 24: WBC 17.1 hemoglobin 8.2 potassium 3.3 creatinine 0.65 November 23: WBC 10.6 hemoglobin 7 platelets 208 potassium 3.4 BUN 63 creatinine 0.68 November 22: WBC 14.8 hemoglobin 7.4 potassium 3.9 creatinine 0.74 sodium 141. ABG: PH 7.31 pCO2 71 pO2 57 November 21: WBC 14.1 hemoglobin 7.3 platelets 187 sodium 146 bicarbonate 35 creatinine 0.94. ABG: PH 7.29 pCO2 70 pO2 88 November 20: WBC 14 hemoglobin 8.1 sodium 150 potassium 3.4 BUN 61 creatinine 1.09 bicarbonate 33. ABG: PO2 of 56 November 19: WBC is 16.3 hemoglobin 6.7 platelets 206 November 10: WBC 15.2 hemoglobin 11.2 sodium 150 progression 4. 36 creatinine 1.13 November 09: WBC 14.6 hemoglobin 11.4 2149 potassium 4.2 BUN 44 creatinine 1.27 November 08: WBC 12.7 hemoglobin 11.4 sodium 153 potassium 4.5 BUN 60 creatinine 1.55 cortisol 18 November 07: White count 20.7 hemoglobin 12 platelets 345 sodium 162 potassium 4.2. 58 creatinine 2.13 ammonia less than 9 COVID 19: Detected November 06: White count 9.5 hemoglobin 12.6 platelets 321 sodium 157 potassium 4.3 chloride 124 BUN 50 creatinine 2.04 UA positive for leukoesterase, WBC Pro-calcitonin 1.11 Chest x-ray film personally reviewed by me-scattered infiltrate EKG tracing personally reviewed by me-sinus rhythm Previous labs: BUN 9 creatinine 0.95 on June 2021 Assessment and plan: -Severe hypernatremia, from free water deficit from decreased oral intake: Better Free fluid -ARDS, multifactorial: Not improving Requiring high PEEP. -COVID 19 with pneumonitis/hypoxia: Slow to respond Intubated Dexamethasone 6 mg -Possible secondary bacterial pneumonia : Slow to respond IV cefepime -Acute hypoxic respiratory failure from respiratory suppression multifactorial: Not improving Initially BiPAP /. Currently intubated -Acute severe metabolic encephalopathy from renal failure and delirium: Slow to respond Treat underlying conditions. -Schizoaffective disorder, bipolar type. Psychosis: Clozaril 200 mg by mouth daily 3 times a day Lamictal 25 mg twice a day Ativan 1 mg IV every 4 when necessary -Bipolar disorder See above medications -Acute kidney injury, possibly prerenal/ ATN : Corrected Admission creatinine 2.04. Received fluids -Diabetes mellitus type 2, on oral hypoglycemic Follow Accu-Cheks. Levemir 10 units a day. -Hypothyroid, Synthroid 100g a day -Hyperlipidemia Lipitor 40 mg daily at bedtime TriCor 134 mg before supper -Chronic DVT both lower extremity diagnosed on October 19 2020 [place]. -Hypernatremia, from free water deficit: Corrected Free water through NG tube -No code IV norepinephrine, , vasopressin, has decided to proceed with abdominal extubation. Comfort orders then be initiated. and family members coming in this afternoon.
[2021-11-25 15:15] VITALS: BP 110/62; RESP 27
--- NOTE | 2021-11-26 15:53 | P.DS ---
Providers Date of admission: 11/06/21 19:45 Expected date of discharge: 11/25/21 Attending physician: Dakota Carrasco Consults: 11/06/21 22:07 Consult Physician Stat Consulting Provider: Rene Blanco Consult Reason/Comments: low spo2 Do you want consulting provider notified?: Yes 11/07/21 10:19 Consult Physician Routine Consulting Provider: Breezy Orozco Consult Reason/Comments: altered mental status Do you want consulting provider notified?: Yes 11/07/21 11:00 Consult Physician Routine Consulting Provider: Kate Prakash Consult Reason/Comments: hypernatermia, ARF Do you want consulting provider notified?: Yes 11/07/21 11:01 Consult Physician Routine Consulting Provider: Wilfred Khan Consult Reason/Comments: history of depression and schizophrenia Do you want consulting provider notified?: Yes Primary care physician: Giuseppe Dany [place] [facility] Course: Chief Complaint: Decreased mentation History of presenting complaint: This is a 50-year-old patient, who follows with Dr. Saenz . Resident of [facility].. known history of bipolar disorder and schizophrenia. 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 Patient was here in May 2021. Severe hypernatremia, acute kidney injury metabolic encephalopathy. Did have some workup done for [place]'s disease. Low-dose and high-dose dexamethasone test was put on telemetry specific. Does of Synthroid was increased. Patient now brought in from [facility]. Patient was diagnosed with COVID 19 a few days ago. Was on Paxil of it. Patient became increasingly lethargic. Patient is felt to secondary bacterial pneumonia. Given Levaquin and transferred here. Also noted. Significantly hypernatremic. Patient admitted to ICU. 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 This morning patient int ICU. On a Precedex drip. BiPAP. Lethargic. Not able to give any history. Admitted with COVID 19 pneumonitis, hypoxia, possibly secondary bacterial pneumonia, severe hyponatremia, severe metabolic encephalopathy, acute kidney injury. On IV Precedex. IV fluids. Levaquin. EEG. November 08: ICU: On BiPAP 12/. IV Precedex. Lethargic. IV Levaquin. Oral bicarbonate. Medications through NG tube. EEG pending. November 09: ICU: On BiPAP 12/5. Off Precedex. Remains lethargic a bit restless. November 10: ICU: On BiPAP 04/23. Remains on Precedex. IV fluids. Sinus rhythm. Remains encephalopathic/delirious. 11/14/2021 Sonny Rubin feels better today, he does not feel dizziness while he is lying in bed all the time. He still have low appetite but no chest pain or dyspnea, no abdominal pain. He still complaining from pain in his legs and he has right leg DVT been on Lovenox with plan to switch him to heparin drip on today as he got midline Blood pressure is 87/56, heart rate 120, sodium is 121 On admission his sodium was still low and was started on D5 normal saline at 100 mL/h however after initial improvement sodium dropped to 121 yesterday so we held his IV fluid and the evening sodium improved 124 (no iv lasix given), however this morning is 121 again. We send urine studies and I'll consult arnp. Also patient has negative CTPA for pulmonary embolism but CT of the abdomen and pelvis showing possible gallbladder fossa abscess or complex fluid collection although it is improved from previous 5 cm down to 2.7 centimeters. The recommended liver ultrasound versus MRI, ultrasound shows the same findings. Also surgery due on the case 11/15/2021 Last night his blood pressure dropped with systolic and 50s, there was a rapid response a team response and he was as stated with IV fluids aggressively, his blood pressure improved in 90s this morning and during the round he was awake and alert looks tired but is appropriate. Sodium was 121 and then 119. He denied any chest pain or abdominal pain, no other complaints clinically. His losing from his puncture wound in the right lower abdomen was a stopped, he was started on heparin drip per recommendation of wildlife veterinarian. After once by the evening time his blood pressure dropped again was 53/32 with altered mental status, there was another rapid response where patient was transferred to the ICU and levophed was started and his mentation started to improve again. Patient was started also on antibiotic empirically with Zosyn and IV vancomycin total infection ruled out completely as there is still high suspicion, with possible sources including the pressure wound sacral ulcer in the lower back, and less likely the gallbladder bed and fossa with 2.7 cm fluid collection (felt less likely because actually it decreased in size from 5.0 cm previously) After transfer patient and at bedside opted for the DO NOT RESUSCITATE order as per bedside nurse. 11/16/2021 Yesterday patient was still deteriorating, however today patient turned around and start improving patient remains in the ICU he needs to pressors we will fit and vasopressin, lactic acid trending up 6.4. Patient mentation is also deteriorated and become more confused and less responsive. His creatinine remains around 1 although he has low urine output. Patient is resuscitated with many fluids and also his broad-spectrum antibiotics with IV vancomycin and Zosyn, as septic shock is highly suspected is the cause of the patient profound hypotension and shock state. Although other factors might be contributing to it. Because of this we started the patient on hydrocortisone to increase the sensitivity of the adrenergic receptors to the catecholamine. Also replacing electrolytes including calcium and magnesium. Sodium slightly trending up. Patient remains in critical condition. Family at bedside 11/17/2021 Patient today workup and he was awake alert and oriented 3, he follows commands, he feels hungry and actually he started tolerating diet for the first time after several months. He denies any respiratory symptoms, his abdomen looks benign, no other new complaints. Blood pressure is improving and he required less pressors, currently blood pressure is 87/61, is less tachycardic around 110. He is currently on levophed 0.03 which is decreased from yesterday. Last night we added hydrocortisone 100 mg 3 times a day as a replacement therapy but to support blood pressure and increased sensitivity of levophed to its adrenergic receptors. Since blood pressure improvement with lower dose to 50 mg today, possibly we will discontinue it in one or 2 days once blood pressure keep improvement. Also patient receiving fluids. Labs looks stable, hemoglobin 9.8, sodium 126 he remains on Zosyn, vancomycin was discontinued. He remains on Zosyn. Anticoagulation is switched to Eliquis therapeutic dose at 10 mg which could be switched to 5 mg on 11/27. Prognosis remains guarded 11/18/2021 Patient is awake but drowsy, His blood pressure is improving but he still on pressors although is requiring less amount He has poor urine output but creatinine is around 1.1. His GFR is 66. He is going to receive 1 dose of Lasix 80 mg today. Also significant sodium bicarb and albumin infusion. He remains on Zosyn Anticoagulation with Eliquis [facility] 14 through November 18. 11/19/2021: I resumed care of patient today ICU: Ventilated intubated. FiO2 50 and a PEEP of 22. Telemetry sinus rhythm. Drips include norepinephrine, propofol, insulin, vasopressin. Nimbex was discontinued earlier today. Receiving a unit of blood. 2 feeding at 55 mL an hour. Bicarbonate infusion discontinued earlier. NG tube. 11/20/2021: ICU: On the ventilator. Intubated. FiO2 16 a PEEP of 22. Drips include vasopressin, levo fed, propofol, insulin. 2 feeding at 55 mL an hour. Telemetry shows sinus rhythm. His sed rate. Spoke to the sister at the bedside. Sedation holiday was tried. Patient became agitated. 11/21/2021: ICU: On the ventilator. Intubated. FiO2 55 and a PEEP of 22. This include vasopressin, norepinephrine, propofol. Telemetry shows sinus rhythm. NG tube in place. 2 feeding at 41 mL an hour. 11/22/2021: ICU: Ventilated a slight intubated. FiO2 16 a PEEP of 20. Patient is put on Nimbex drip yesterday. Other drips include vasopressin, levo fed, propofol. NG tube remains in place. Water was added. Sodium better. 2 feeding at 41 mL an hour. 11/23/2021: ICU: Ventilated/intubated. FiO2 of 60 and a PEEP of 22. Drips include vasopressin, norepinephrine, propofol, Nimbex. 2 feeding at 46 mL an hour. Sinus rhythm. Free water through NG tube. 11/24/2021: ICU: Ventilated slight intubated. FiO2 60 PEEP of 18. It's include vasopressin, Nimbex, before, norepinephrine. 2 feeding at 46 mL an hour. Sinus rhythm. Clear secretions through the ET tube. 11/25/2021: ICU: Ventilated/intubated. FiO2 16 PEEP of 18. Patient has been taken off Nimbex and vasopressin drip. On norepinephrine. Sinus rhythm. has decided to proceed with comfort measures with terminal extubation later today. Patient was later dominantly extubated and Past medical history to include: Hypertension, hypothyroid, bipolar disorder, schizophrenia. excessive alcohol use in the past. No smoking. Psychosis, catatonic-like syndrome Social history: Heavy alcohol use in the past. . No smoking. Currently at [facility] Family history: Patient cannot tell INVESTIGATIONS, reviewed in the clinical context: November 25: WBC 14.8 hemoglobin 7.1 platelets 215 ABG: PH 7.3 pCO2 72 pO2 67 potassium 3.2 creatinine 0.73 November 24: WBC 17.1 hemoglobin 8.2 potassium 3.3 creatinine 0.65 November 23: WBC 10.6 hemoglobin 7 platelets 208 potassium 3.4 BUN 63 creatinine 0.68 November 22: WBC 14.8 hemoglobin 7.4 potassium 3.9 creatinine 0.74 sodium 141. ABG: PH 7.31 pCO2 71 pO2 57 November 21: WBC 14.1 hemoglobin 7.3 platelets 187 sodium 146 bicarbonate 35 creatinine 0.94. ABG: PH 7.29 pCO2 70 pO2 88 November 20: WBC 14 hemoglobin 8.1 sodium 150 potassium 3.4 BUN 61 creatinine 1.09 bicarbonate 33. ABG: PO2 of 56 November 19: WBC is 16.3 hemoglobin 6.7 platelets 206 November 10: WBC 15.2 hemoglobin 11.2 sodium 150 progression 4. 36 creatinine 1.13 November 09: WBC 14.6 hemoglobin 11.4 2149 potassium 4.2 BUN 44 creatinine 1.27 November 08: WBC 12.7 hemoglobin 11.4 sodium 153 potassium 4.5 BUN 60 creatinine 1.55 cortisol 18 November 07: White count 20.7 hemoglobin 12 platelets 345 sodium 162 potassium 4.2. 58 creatinine 2.13 ammonia less than 9 COVID 19: Detected November 06: White count 9.5 hemoglobin 12.6 platelets 321 sodium 157 potassium 4.3 chloride 124 BUN 50 creatinine 2.04 UA positive for leukoesterase, WBC Pro-calcitonin 1.11 Chest x-ray film personally reviewed by me-scattered infiltrate EKG tracing personally reviewed by me-sinus rhythm Previous labs: BUN 9 creatinine 0.95 on June 2021 Cause of : COVID 19 pneumonitis Assessment and plan: -Severe hypernatremia, from free water deficit from decreased oral intake: Better Free fluid -ARDS, multifactorial: Not improving Requiring high PEEP. -COVID 19 with pneumonitis/hypoxia: Slow to respond Intubated Dexamethasone 6 mg -Possible secondary bacterial pneumonia : Slow to respond IV cefepime -Acute hypoxic respiratory failure from respiratory suppression multifactorial: Not improving Initially BiPAP 12/5. Currently intubated -Acute severe metabolic encephalopathy from renal failure and delirium: Slow to respond Treat underlying conditions. -Schizoaffective disorder, bipolar type. Psychosis: Clozaril 200 mg by mouth daily 3 times a day Lamictal 25 mg twice a day Ativan 1 mg IV every 4 when necessary -Bipolar disorder See above medications -Acute kidney injury, possibly prerenal/ ATN : Corrected Admission creatinine 2.04. Received fluids -Diabetes mellitus type 2, on oral hypoglycemic Follow Accu-Cheks. Levemir 10 units a day. -Hypothyroid, Synthroid 100g a day -Hyperlipidemia Lipitor 40 mg daily at bedtime TriCor 134 mg before supper -Chronic DVT both lower extremity diagnosed on October 19 2020 Sushilaquis. -Hypernatremia, from free water deficit: Corrected Free water through NG tube -No code Disposition: Patient Plan - Discharge Summary Discharge Rx Participant: No New Discharge Prescriptions: No Action Fenofibrate,Micronized [Fenofibrate] 134 mg PO HS@2100 Acetaminophen Tab [Tylenol] 650 mg PO Q6H PRN PRN Reason: Fever And/ Or Pain bisacodyL [Dulcolax] 10 mg RECTAL DAILY PRN PRN Reason: Constipation lamoTRIgine [LaMICtal] 25 mg PO BID@0900,2100 LORazepam [Ativan] 1 mg PO Q8H PRN PRN Reason: Anxiety Ascorbic Acid [Vitamin C] 500 mg PO BID@0900,2100 Budesonide [Pulmicort Flexhaler] 2 puff INHALATION DIRECTED Potassium Chloride ER [K-Dur 20] 20 meq PO DAILY@0900 Famotidine [Pepcid] 20 mg PO BID@0900,2100 Cholecalciferol [Vitamin D3 (125 Mcg = 5000 Iu)] 125 mcg PO DAILY@0900 Levothyroxine Sodium [Synthroid] 100 mcg PO DAILY@0600 Psyllium Husk 100% [Metamucil Packet] 1 tbsp PO DAILY@0900 Budesonide [Pulmicort Flexhaler] 1 puff INHALATION RT-DAILY Cholecalciferol [Vitamin D3 (25 Mcg = 1000 Iu)] 50 mcg PO DIRECTED Apixaban [Eliquis] 5 mg PO DAILY@0900 Atorvastatin Calcium [Lipitor] 40 mg PO HS@2100 Isosorbide Mononitrate ER [Imdur] 30 mg PO DAILY@0900 cloZAPine [Clozapine] 200 mg PO TID@0900,1300,2100 Albuterol Sulfate [Albuterol Sulfate Hfa] 2 puff PO RT-QID Nirmatrelvir/Ritonavir [Paxlovid 2X150 mg-100 mg (Eua)] 3 tab PO BID@0900,1700 metFORMIN HCL [Glucophage] 500 mg PO BID@0900,2100 Apixaban [Eliquis] 5 mg PO DIRECTED Zinc Gluconate [Zinc] 50 mg PO DAILY@0900 Aspirin EC [Ecotrin Low Dose] 81 mg PO DAILY@0900 Magnesium Hydroxide [Milk of Magnesia Concentrate] 7,200 mg PO Q48H PRN PRN Reason: Constipation Discharge Medication List Cholecalciferol [Vitamin D3 (25 Mcg = 1000 Iu)] 50 mcg PO DIRECTED 10/10/20 [History] Acetaminophen Tab [Tylenol] 650 mg PO Q6H PRN 03/14/21 [History] Apixaban [Eliquis] 5 mg PO DAILY@0900 03/14/21 [History] Atorvastatin Calcium [Lipitor] 40 mg PO HS@209903/14/21 [History] Fenofibrate,Micronized [Fenofibrate] 134 mg PO HS@209903/14/21 [History] Isosorbide Mononitrate ER [Imdur] 30 mg PO DAILY@0900 06/14/21 [History] bisacodyL [Dulcolax] 10 mg RECTAL DAILY PRN 06/14/21 [History] lamoTRIgine [LaMICtal] 25 mg PO BID@0900,2100 06/14/21 [History] Albuterol Sulfate [Albuterol Sulfate Hfa] 2 puff PO RT-QID 11/06/21 [History] Apixaban [Eliquis] 5 mg PO DIRECTED 11/06/21 [History] Ascorbic Acid [Vitamin C] 500 mg PO BID@0900,2100 11/06/21 [History] Aspirin EC [Ecotrin Low Dose] 81 mg PO DAILY@0900 11/06/21 [History] Budesonide [Pulmicort Flexhaler] 1 puff INHALATION RT-DAILY 11/06/21 [History] Budesonide [Pulmicort Flexhaler] 2 puff INHALATION DIRECTED 11/06/21 [History] Cholecalciferol [Vitamin D3 (125 Mcg = 5000 Iu)] 125 mcg PO DAILY@0900 11/06/21 [History] Famotidine [Pepcid] 20 mg PO BID@0900,209911/06/21 [History] LORazepam [Ativan] 1 mg PO Q8H PRN 11/06/21 [History] Levothyroxine Sodium [Synthroid] 100 mcg PO DAILY@0600 11/06/21 [History] Magnesium Hydroxide [Milk of Magnesia Concentrate] 7,200 mg PO Q48H PRN 11/06/21 [History] Nirmatrelvir/Ritonavir [Paxlovid 2X150 mg-100 mg (Eua)] 3 tab PO BID@0900,1700 11/06/21 [History] Potassium Chloride ER [K-Dur 20] 20 meq PO DAILY@0911/06/21 [History] Psyllium Husk 100% [Metamucil Packet] 1 tbsp PO DAILY@0911/06/21 [History] Zinc Gluconate [Zinc] 50 mg PO DAILY@89911/06/21 [History] cloZAPine [Clozapine] 200 mg PO TID@0900,1300,209911/06/21 [History] metFORMIN HCL [Glucophage] 500 mg PO BID@0900,209911/06/21 [History] Follow up Appointment(s)/Referral(s): Giuseppe Saenz MD [Primary Care Provider] - 1-2 days Discharge Disposition: - Preliminary Cause of Preliminary Cause of : COVID 19
--- NOTE | 2021-11-27 16:49 | CDI ---
Documentation Clarification Form Date: 11/27/2021 04:32:20 PM From: Isatu Rivera Phone: Admit Date: 11/06/2021 07:45:00 PM Patient Name: Kelly Way Visit Number: [id number] Discharge Date: 11/25/2021 07:12:00 PM ATTENTION: The Clinical Documentation Specialists (CDI) and [facility] Coding Staff appreciate your assistance in clarifying documentation. Please respond to the clarification below the line at the bottom and electronically sign. The CDI & [facility] Coding staff will review the response and follow-up if needed. Please note: Queries are made part of the Legal Health Record. If you have any questions, please contact the author of this message via ITS. Dr. Dakota Dennis pressure woundsacralulcerin the lower back is documented per Dr. Carrasco Progress Note 11/19/21. Additional clarification regarding the stage of the pressure ulcer is requested. History/Risk Factors: 50 yo F, sepsis w shock, COVID w PNA, ARDS >96 vent, hypernatremia, bipolar schizophrenia, JAYLA, toxic, metabolic & hypoxic encephalopathy, sp cardiac arrest Clinical Indicators: Possiblesources including thepressure woundsacralulcerin the lower back,and less likelythe gallbladder bed and fossa with 2.7 cm fluid collection(felt less likely because actually it decreased in size from 5.0 cm previously) Treatment: Patient was started also on antibiotic empirically with Zosyn and IV vancomycin totalinfectionruled outcompletely as there is still high suspicion. Please clarify the stage of sacral ulcer and Present on Admission status, if known: [ ] Present on Admission [ ] Not Present on Admission [ ] Deep tissue injury sacral ulcer [ ] Stage 1 Pressure Ulcer sacral ulcer [ ] Stage 2 Pressure Ulcer sacral ulcer [ ] Stage 3 Pressure Ulcer sacral ulcer [ ] Stage 4 Pressure Ulcer sacral ulcer [ ] Unstageable Pressure ulcer sacral ulcer [ ] Other condition, please specify [ ] Unable to determine Clinical Definitions: Stage 1 Pressure Ulcer: intact skin, non-blanching redness of local area Stage 2 Pressure Ulcer: Partial thickness, loss of dermis, pink wound bed Stage 3 Pressure Ulcer: Full thickness tissue loss Stage 4 Pressure Ulcer: Full thickness tissue loss with exposed bone, tendon, or muscle. Unstageable pressure ulcer: Full thickness tissue loss in which the base of the ulcer is covered by slough (yellow, pickard, nick, green or brown) and/or eschar (pickard, brown or black) in the wound bed. (Template Last Revised: July 2020) Unable to determine MTDD
== END 2021-11-25 19:12 | disposition expired | DRG 870 ==
LOC: EC 16:04 → 4SSUR 19:45 → 3SCARD 11-07 03:22 → 2SICU 11-07 08:58
PROVIDERS: ADMIT Hospitalist; ATTEND Hospitalist
PROC: 0D9670Z Drainage of Stomach with Drainage Device, Via Natural or Artificial Opening (ICD-10-PCS; 2021-11-06)
PROC: 3E0G76Z Introduction of Nutritional Substance into Upper GI, Via Natural or Artificial Opening (ICD-10-PCS; 2021-11-06)
PROC: 5A0955A Assistance with Respiratory Ventilation, Greater than 96 Consecutive Hours, High Flow/Velocity Cannula (ICD-10-PCS; 2021-11-06)
PROC: 02HV33Z Insertion of Infusion Device into Superior Vena Cava, Percutaneous Approach (ICD-10-PCS; 2021-11-13)
PROC: 5A1955Z Respiratory Ventilation, Greater than 96 Consecutive Hours (ICD-10-PCS; 2021-11-15)
PROC: 0BH17EZ Insertion of Endotracheal Airway into Trachea, Via Natural or Artificial Opening (ICD-10-PCS; 2021-11-15)
PROC: 03HY32Z Insertion of Monitoring Device into Upper Artery, Percutaneous Approach (ICD-10-PCS; principal; 2021-11-16)
PROC: 4A133B1 Monitoring of Arterial Pressure, Peripheral, Percutaneous Approach (ICD-10-PCS; 2021-11-16)
PROC: 4A133J1 Monitoring of Arterial Pulse, Peripheral, Percutaneous Approach (ICD-10-PCS; 2021-11-16)
PROC: 5A12012 Performance of Cardiac Output, Single, Manual (ICD-10-PCS; 2021-11-16)
PROC: 3E033XZ Introduction of Vasopressor into Peripheral Vein, Percutaneous Approach (ICD-10-PCS; 2021-11-16)
PROC: 30233N1 Transfusion of Nonautologous Red Blood Cells into Peripheral Vein, Percutaneous Approach (ICD-10-PCS; 2021-11-19)
DX: A41.9 Sepsis, unspecified organism (principal); U07.1 COVID-19; J12.82 Pneumonia due to coronavirus disease 2019; N17.0 Acute kidney failure with tubular necrosis; J80 Acute respiratory distress syndrome; G92.8 Other toxic encephalopathy; R65.21 Severe sepsis with septic shock; J15.9 Unspecified bacterial pneumonia; G93.41 Metabolic encephalopathy; E87.0 Hyperosmolality and hypernatremia; G93.1 Anoxic brain damage, not elsewhere classified; D62 Acute posthemorrhagic anemia; E87.2 Acidosis; I82.503 Chronic embolism and thrombosis of unspecified deep veins of lower extremity, bilateral; F05 Delirium due to known physiological condition; E86.0 Dehydration; E66.9 Obesity, unspecified; I46.8 Cardiac arrest due to other underlying condition; T41.295A Adverse effect of other general anesthetics, initial encounter; T48.1X5A Adverse effect of skeletal muscle relaxants [neuromuscular blocking agents], initial encounter; R32 Unspecified urinary incontinence; Z66 Do not resuscitate; Z51.5 Encounter for palliative care; R53.81 Other malaise; E87.6 Hypokalemia; E78.5 Hyperlipidemia, unspecified; E03.9 Hypothyroidism, unspecified; J98.2 Interstitial emphysema; T38.3X5A Adverse effect of insulin and oral hypoglycemic [antidiabetic] drugs, initial encounter; E87.70 Fluid overload, unspecified; F10.11 Alcohol abuse, in remission; I10 Essential (primary) hypertension; E11.65 Type 2 diabetes mellitus with hyperglycemia; L89.159 Pressure ulcer of sacral region, unspecified stage; R13.10 Dysphagia, unspecified; F25.0 Schizoaffective disorder, bipolar type; Z80.9 Family history of malignant neoplasm, unspecified; Z68.34 Body mass index [BMI] 34.0-34.9, adult; Z86.69 Personal history of other diseases of the nervous system and sense organs; Z79.899 Other long term (current) drug therapy; Z79.01 Long term (current) use of anticoagulants; Z79.82 Long term (current) use of aspirin; Z79.51 Long term (current) use of inhaled steroids; Z79.890 Hormone replacement therapy; Z79.84 Long term (current) use of oral hypoglycemic drugs; Z88.0 Allergy status to penicillin; Z88.1 Allergy status to other antibiotic agents; Z88.8 Allergy status to other drugs, medicaments and biological substances; Z90.49 Acquired absence of other specified parts of digestive tract; Z90.89 Acquired absence of other organs; Z98.51 Tubal ligation status; Z87.891 Personal history of nicotine dependence; Z82.49 Family history of ischemic heart disease and other diseases of the circulatory system
CPT/HCPCS: 36415; 36600; 70450; 71045; 76770; 80048; 80053; 81001; 82140; 82533; 82728; 82805; 83540; 83550; 83605; 83615; 83735; 83880; 84100; 84132; 84145; 84295; 84439; 84443; 85025; 85027; 85379; 86140; 86850; 86900; 86901; 86920; 87040; 87070; 87086; 87205; 87635; 93308; 94002; 94003; 94640; 94660; 95822; 96361; 96365; 96366; 96374; 96375; 96376; 99285